=== PATIENT | female | born 1950 | race Caucasian/White ===

== ENCOUNTER 2016-08-08 00:08 | Observation (INO) | payer OTHER, MEDICAID ==
[2016-08-08] VITALS (12 sets, daily range): BP systolic 138–215; BP diastolic 71–97; PULSE 71–88; RESP 14–20; TEMP 97.6–98.3; O2SAT 92–99
[~2016-08-08] VITALS: Ht 157.5 cm; Wt 58.0 kg
[~2016-08-08 00:08] MED LIST: FURO1TAB62 PO; HUMALOG SQ; LACT10SO47 PO; LEVEMIR SQ; LEVO75TA3 PO; MECL-62 PO; MERC50TA PO; METO25TA3 PO; POTA-243 PO; VITA100018 PO; VITA500T PO; XIFA550T4 PO; ZETI10TA5 PO; ZOLO50TA PO
[2016-08-08] MEDS ORDERED: SODIUM CHLOR 0.9% 1000 ML INJ 1,000 ML IV ONE ×2 (00:34→01:45)
[2016-08-08] MEDS ORDERED: diphenhydrAMINE HCL 50 MG/ML VIAL IVP ONE (00:45)
[2016-08-08] MEDS ORDERED: PROCHLORPERAZINE INJ 10 MG/2 ML VIAL IVP ONE (00:45)
[2016-08-08] MEDS ORDERED: SODIUM CHLORIDE 0.9% FLUSH 5 ML FLUSH IVF PRN (00:45)
[2016-08-08 00:59] LABS: AUTOMATED NEUTROPHIL # 2.3 TH/MM3 (1.8-7.7); BASOPHIL % 1.1 % (0.0-2.0); EOSINOPHIL # 0.1 TH/MM3 (0-0.4); EOSINOPHIL % 1.6 % (0.0-4.0); HEMATOCRIT 29.9 % (35.0-46.0); LYMPH % 25.2 % (9.0-44.0); MEAN CELL VOLUME 97.5 FL (80.0-100.0); MEAN CORPUSCULAR HEMOGLOBIN 33.4 PG (27.0-34.0); MEAN CORPUSCULAR HGB CONC 34.2 % (32.0-36.0); MONO % 11.6 % (0.0-8.0); NEUT % 60.5 % (16.0-70.0); PLATELET COUNT 92 TH/MM3 (150-450); RED BLOOD COUNT 3.07 MIL/MM3 (4.00-5.30); RED CELL DISTRIBUTION WIDTH 14.9 % (11.6-17.2); WHITE BLOOD COUNT 3.8 TH/MM3 (4.0-11.0)
[2016-08-08 01:08] LABS: HEMO FLAGS AUTO DIFF
[2016-08-08 01:26] LABS: ANION GAP 9 MEQ/L (5-15); AST (GOT) 64 U/L (15-37); BICARBONATE 26.9 MEQ/L (21.0-32.0); BLOOD UREA NITROGEN 30 MG/DL (7-18); CHLORIDE 105 MEQ/L (98-107); GLOMERULAR FILTRATION RATE 70 ML/MIN (>89); POTASSIUM 4.2 MEQ/L (3.5-5.1); SODIUM (NA) 141 MEQ/L (136-145)
[2016-08-08 01:28] LABS: ALKALINE PHOSPHATASE 276 U/L (45-117); ALT (GPT) 57 U/L (10-53); TOTAL BILIRUBIN ADULT 0.7 MG/DL (0.2-1.0)
[2016-08-08] MEDS ORDERED: LORazepam 2 MG/ML VIAL IV PUSH ONE (01:45)
[2016-08-08 01:49] LABS: PLATELET ESTIMATE SMEAR LOW (NORMAL); PLATELET MORPHOLOGY NORMAL (NORMAL); SCAN/DIFF AUTO DIFF CONFIRMED
--- NOTE | 2016-08-08 02:06 | RADRPT ---
EXAM DATE/TIME: 08/08/2016 01:06 [place] COMPARISON: CT BRAIN W/O CONTRAST, December 12, 2014, 15:02. INDICATIONS : Right temporal cephalgia. RADIATION DOSE: 38.25 CTDIvol (mGy) MEDICAL HISTORY : Hypertension. Hepatitis. glaucoma. SURGICAL HISTORY : None. ENCOUNTER: Initial ACUITY: 1 day PAIN SCALE: 10/10 LOCATION: Right temporal TECHNIQUE: Multiple contiguous axial images were obtained of the head. Using automated exposure control and adj ustment of the mA and/or kV according to patient size, radiation dose was kept as low as reasonably a chievable to obtain optimal diagnostic quality images. FINDINGS: CEREBRUM: The ventricles are normal for age. No evidence of midline shift, mass lesion, hemorrhage or acute in farction. No extra-axial fluid collections are seen. POSTERIOR FOSSA: The cerebellum and brainstem are intact. The 4th ventricle is midline. The cerebellopontine angle i s unremarkable. EXTRACRANIAL: The visualized portion of the orbits is intact. Fluid in the right sphenoid sinus. SKULL: The calvaria is intact. No evidence of skull fracture. CONCLUSION: No acute intracranial abnormality. Sphenoid sinus disease. Dejan Trejo MD on August 08, 2016 at 2:04 Board Certified Radiologist. This report was verified electronically.
--- NOTE | 2016-08-08 02:26 | PD ---
HPI Chief Complaint: Headache Time Seen by Provider: 00:24 Travel History International Travel<30 days: No Contact w/Intl Traveler<30days: No Traveled to known affect area: No History of Present Illness HPI 66-year-old female arrives to the ER complaining of pain in the region of the right temporal scalp. It is been present for about 1-2 weeks. The onset was gradual. It is now becoming constant. She notes claudication in the right masseter distribution with chewing. She notes a rash about her right face and right neck. Patient suffers with autoimmune hepatitis and additional multiple other autoimmune disorders. The daughter notes the patient has been very fatigued and has spent most of the day for the past 2 days in bed. There is been no recent trauma or injury to the right temporal scalp. PFSH Past Medical History Hx Anticoagulant Therapy: Yes (ASPIRIN 81mg) Arthritis: Yes Asthma: No Autoimmune Disease: Yes (HEPATITIS) Blood Disorders: No Anxiety: Yes Depression: Yes Heart Rhythm Problems: Yes (RBBB) Cancer: No Cardiovascular Problems: Yes (HTN) High Cholesterol: No Chemotherapy: No Chest Pain: No Congestive Heart Failure: No Cirrhosis: Yes COPD: No Cerebrovascular Accident: No Diabetes: Yes Patient Takes Glucophage: No Diminished Hearing: No Endocrine: Yes GERD: No Genitourinary: No Headaches: Yes Hepatitis: Yes (AUTOIMMUNE) Hypertension: Yes Immune Disorder: Yes Implanted Vascular Access Dvce: No Musculoskeletal: No Neurologic: Yes Psychiatric: Yes Reproductive: No Respiratory: No Immunizations Current: Yes Radiation Therapy: No Seizures: No Sleep Apnea: No Thyroid Disease: No Ovarian Cysts: Yes (1985) Past Surgical History Abdominal Surgery: Yes (APPENDECTOMY) Appendectomy: Yes Gynecologic Surgery: Yes (HYSTERECTOMY ) Hysterectomy: Yes Pacemaker: No Other Surgery: Yes (LIVER/BREAST BIOPSY) Social History Alcohol Use: No (PT DENIES) Tobacco Use: No Substance Use: No (PT DENIES) Allergies-Medications (Allergen,Severity, Reaction): Coded Allergies: Morphine (Verified Allergy, Severe, Rash, 08/08/16) Penicillin (Verified Allergy, Severe, Rash, 08/08/16) Tetracycline (Verified Allergy, Severe, Rash, 08/08/16) Clindamycin (Verified Allergy, Unknown, Nausea/Vomiting, 08/08/16) Sulfa (Verified Allergy, Unknown, Rash, 08/08/16) Reported Meds & Prescriptions Reported Meds & Active Scripts Active Zoloft (Sertraline HCl) 50 Mg Tab 50 Mg PO DAILY Meclizine (Meclizine HCl) 25 Mg Tab 25 Mg PO TID PRN Metoprolol Tartrate 25 Mg Tab 12.5 Mg PO Q12HR Klor-Con 10 (Potassium Chloride) 10 Meq Tab 10 Meq PO DAILY Reported Zetia (Ezetimibe) 10 Mg Tab 10 Mg PO DAILY Vitamin D3 (Cholecalciferol) 1,000 Unit Tab 1,000 Units PO DAILY Vitamin C (Ascorbic Acid) 500 Mg Tab 500 Mg PO DAILY Levothyroxine (Levothyroxine Sodium) 75 Mcg Tab 75 Mcg PO DAILY Levemir Inj (Insulin Detemir) 1,000 unit/ 10 ML Vial 23 Units SQ BID Do not mix with any other Insulin. Lasix (Furosemide) 20 Mg Tab 20 Mg PO DAILY Humalog Inj (Insulin Human Lispro) 1,000 Unit/10 Ml Vial 6-16 Units SQ ACHS Xifaxan (Rifaximin) 550 Mg Tab 550 Mg PO Q12HR Mercaptopurine 50 Mg Tab 50 Mg PO DAILY Enulose Liq (Lactulose (Encephalopathy) Liq) 10 Gm/15 Ml Soln 20 Gm PO BID Review of Systems Except as stated in HPI: all other systems reviewed are Neg Physical Exam Narrative GENERAL: 66-year-old female pleasant well-nourished well-developed SKIN: Warm and dry. HEAD: Atraumatic. Normocephalic. Tenderness along the right temporal artery. EYES: Pupils equal and round. No scleral icterus. No injection or drainage. ENT: No nasal bleeding or discharge. Mucous membranes pink and moist. NECK: Trachea midline. No JVD. CARDIOVASCULAR: Regular rate and rhythm. No murmur appreciated. RESPIRATORY: No accessory muscle use. Clear to auscultation. Breath sounds equal bilaterally. GASTROINTESTINAL: Abdomen soft, non-tender, nondistended. Hepatic and splenic margins not palpable. MUSCULOSKELETAL: No obvious deformities. No clubbing. No cyanosis. No edema. NEUROLOGICAL: Awake and alert. No obvious cranial nerve deficits. Motor grossly within normal limits. Normal speech. PSYCHIATRIC: Appropriate mood and affect; insight and judgment normal. Data Data Last Documented VS Vital Signs Date Time Temp Pulse Resp B/P Pulse Ox O2 Delivery O2 Flow Rate FiO2 08/08/16 03:50 77 16 165/71 99 Room Air 08/08/16 00:11 98.1 Orders Complete Blood Count With Diff (08/08/16 00:34) Comprehensive Metabolic Panel (08/08/16 00:34) [place] Sedimentation Rate (08/08/16 00:34) C-Reactive Protein (Crp) (08/08/16 00:34) Ct Brain W/O Iv Contrast(Rout) (08/08/16 00:34) Ecg Monitoring (08/08/16 00:34) Iv Access Insert/Monitor (08/08/16 00:34) Oximetry (08/08/16 00:34) Sodium Chloride 0.9% Flush (Ns Flush) (08/08/16 00:45) Prochlorperazine Inj (Compazine Inj) (08/08/16 00:45) Diphenhydramine Inj (Benadryl Inj) (08/08/16 00:45) Sodium Chlor 0.9% 1000 Ml Inj (Ns 1000 M (08/08/16 00:34) Sodium Chlor 0.9% 1000 Ml Inj (Ns 1000 M (08/08/16 01:45) Lorazepam Inj (Ativan Inj) (08/08/16 01:45) Labetalol Inj (Trandate Inj) (08/08/16 03:30) Methylprednisolone So Succ Inj (Solumedr (08/08/16 03:30) Admit Order (Ed Use Only) (08/08/16 04:56) Place In Observation (08/08/16 ) Vital Signs (Adult) Q4H (08/08/16 04:58) Activity Oob With Assistance (08/08/16 04:58) ^ Pathology Collector / Telemetry .CONTINUOUS (08/08/16 04:58) Diet Heart Healthy (08/08/16 Breakfast) Sodium Chloride 0.9% Flush (Ns Flush) (08/08/16 05:00) Sodium Chloride 0.9% Flush (Ns Flush) (08/08/16 09:00) Basic Metabolic Panel (Bmp) (08/09/16 06:00) Complete Blood Count With Diff (08/09/16 06:00) Pt Request For Service (08/08/16 04:58) Case Management Consult (08/08/16 04:58) Scd Bilateral/Knee High DORIS.BID (08/08/16 04:58) Naloxone Inj (Narcan Inj) (08/08/16 05:00) Labs Laboratory Tests Test 08/08/16 00:40 White Blood Count 3.8 TH/MM3 Red Blood Count 3.07 MIL/MM3 Hemoglobin 10.3 GM/DL Hematocrit 29.9 % Mean Corpuscular Volume 97.5 FL Mean Corpuscular Hemoglobin 33.4 PG Mean Corpuscular Hemoglobin 34.2 % Concent Red Cell Distribution Width 14.9 % Platelet Count 92 TH/MM3 Mean Platelet Volume 9.7 FL Neutrophils (%) (Auto) 60.5 % Lymphocytes (%) (Auto) 25.2 % Monocytes (%) (Auto) 11.6 % Eosinophils (%) (Auto) 1.6 % Basophils (%) (Auto) 1.1 % Neutrophils # (Auto) 2.3 TH/MM3 Lymphocytes # (Auto) 1.0 TH/MM3 Monocytes # (Auto) 0.4 TH/MM3 Eosinophils # (Auto) 0.1 TH/MM3 Basophils # (Auto) 0.0 TH/MM3 CBC Comment AUTO DIFF Differential Comment AUTO DIFF CONFIRMED Platelet Estimate LOW Platelet Morphology Comment NORMAL Red Cell Morphology Comment NORMAL Erythrocyte Sedimentation Rate 78 mm/hr Sodium Level 141 MEQ/L Potassium Level 4.2 MEQ/L Chloride Level 105 MEQ/L Carbon Dioxide Level 26.9 MEQ/L Anion Gap 9 MEQ/L Blood Urea Nitrogen 30 MG/DL Creatinine 0.82 MG/DL Estimat Glomerular Filtration 70 ML/MIN Rate Random Glucose 158 MG/DL Calcium Level 9.0 MG/DL Total Bilirubin 0.7 MG/DL Aspartate Amino Transf 64 U/L (AST/SGOT) Alanine Aminotransferase 57 U/L (ALT/SGPT) Alkaline Phosphatase 276 U/L C-Reactive Protein 0.70 MG/DL Total Protein 8.2 GM/DL Albumin 2.9 GM/DL [facility] Medical Decision Making Medical Screen Exam Complete: Yes Emergency Medical Condition: Yes Medical Record Reviewed: Yes Differential Diagnosis Temporal arteritis, tension headache, migraine, autoimmune disorder Narrative Course CBC & BMP Diagram 08/08/16 00:40 AST is 64 ALT is 57 Alkaline phosphatase is 276 C-reactive protein is 0.7 Albumin 2.9. Last [address] 08/08/16 0034 Signed Impressions: Service Date/Time: Monday, August 08, 2016 01:06 - CONCLUSION: No acute intracranial abnormality. Sphenoid sinus disease. Dejan Trejo MD The case was discussed with Dr. Steinberg of neurology who confirmed that neurology services here can be consulted in the case of possible giant cell arteritis. Case was discussed with Dr. Spears of general surgery who is amenable with performing a temporal artery biopsy. Given multiple medical problems patient will be admitted to the hospitalist service. d/w Dr Berrios. Diagnosis Primary Impression: Temporal headache Admitting Information Admitting Physician Requests: Observation Will Doe MD Aug 08, 2016 02:26
[2016-08-08] MEDS ORDERED: methylPREDNISolone SOD SUCC 125 MG/2 ML VIAL IV PUSH ONE (03:30)
[2016-08-08] MEDS ORDERED: LABETALOL HCL 100 MG/20 ML VIAL IV PUSH PRN (03:30)
[2016-08-08] MEDS ORDERED: SODIUM CHLORIDE 0.9% FLUSH 5 ML FLUSH FLUSH PRN (05:00)
[2016-08-08] MEDS ORDERED: NALOXONE HCL 0.4 MG/ML AMP IV PRN (05:00)
--- NOTE | 2016-08-08 06:03 | HHI.HP ---
[facility] Service [place] [facility] Primary Care Physician Luis Clark DO Admission Diagnosis R Temporal Cephalgia Diagnoses: (1) Temporal headache (2) Temporal arteritis (3) Hypertension (4) Type 2 diabetes mellitus (5) Hypothyroidism Chief Complaint: Pain in the right christian with nausea and vomiting for 2 weeks Travel History International Travel<30 Days: No Contact w/Intl Traveler <30 Da: No Traveled to Known Affected Are: No History of Present Illness Ms. Mooney is a 66 year old female with a history of diabetes mellitus, depression, hypertension, autoimmune hepatitis, cirrhosis of liver with ascites , hypocalcemia, upper GI bleed, hypo-albuminuria, and hypothyroidism who presented to the emergency room complaining of right temporal scalp pain for 2 weeks. At the time of our visit, she had been medicated with Ativan IV if you are's prior along with Compazine and IV Benadryl. She is very lethargic but will awaken long enough to answer a few questions but drifts back to sleep. She reports that she's been having severe right christian head pain for the past 2 weeks and cannot hear out of her left ear. She states that yesterday she experienced severe nausea and vomiting. She also reports photosensitivity. She denies localized weakness or paresthesias. She denies dysuria, hematuria, shortness of breath, chest pain. She reports neck pain but states that this is chronic in nature and unchanged. The patient sees Dr. Serrano for GI, Dr. Ray for endocrine, Dr. Quinonez for dermatology, Dr. Giron for cardiology, Dr. Schaeffer for ophthalmology, and Dr. Walker for podiatry. . Review of Systems ROS Limitations: Clinical Condition Constitutional: DENIES: Fever, Chills Eyes: COMPLAINS OF: Photosensitivity Respiratory: DENIES: Shortness of breath Gastrointestinal: COMPLAINS OF: Nausea, Vomiting, DENIES: Abdominal pain, Black stools, Bloody stools Genitourinary: DENIES: Hematuria, Dysuria Neurologic: DENIES: Localized weakness, Paresthesias Other Patient is sleepy from medications during the time of our visit; thus ability to obtain reliable review of systems is limited. Past Family Social History Past Medical History Due to patient's drowsiness, medical history is obtained from chart Cataracts Peripheral neuropathy Headache Hypertension Right bundle branch block Hypertension Gastroesophageal reflux disease Colitis Inflammatory bowel disease Osteoarthritis Diabetes mellitus, type II which was diagnosed in the year 1999 Liver disease; autoimmune hepatitis Cirrhosis . Past Surgical History Hysterectomy Left shoulder surgery Breast biopsy Liver biopsy . Reported Medications Reported Meds & Active Scripts Active Zoloft (Sertraline HCl) 50 Mg Tab 50 Mg PO DAILY Meclizine (Meclizine HCl) 25 Mg Tab 25 Mg PO TID PRN Metoprolol Tartrate 25 Mg Tab 12.5 Mg PO Q12HR Klor-Con 10 (Potassium Chloride) 10 Meq Tab 10 Meq PO DAILY Reported Zetia (Ezetimibe) 10 Mg Tab 10 Mg PO DAILY Vitamin D3 (Cholecalciferol) 1,000 Unit Tab 1,000 Units PO DAILY Vitamin C (Ascorbic Acid) 500 Mg Tab 500 Mg PO DAILY Levothyroxine (Levothyroxine Sodium) 75 Mcg Tab 75 Mcg PO DAILY Levemir Inj (Insulin Detemir) 1,000 unit/ 10 ML Vial 23 Units SQ BID Do not mix with any other Insulin. Lasix (Furosemide) 20 Mg Tab 20 Mg PO DAILY Humalog Inj (Insulin Human Lispro) 1,000 Unit/10 Ml Vial 6-16 Units SQ ACHS Xifaxan (Rifaximin) 550 Mg Tab 550 Mg PO Q12HR Mercaptopurine 50 Mg Tab 50 Mg PO DAILY Enulose Liq (Lactulose (Encephalopathy) Liq) 10 Gm/15 Ml Soln 20 Gm PO BID Allergies: Coded Allergies: Morphine (Verified Allergy, Severe, Rash, 08/08/16) Penicillin (Verified Allergy, Severe, Rash, 08/08/16) Tetracycline (Verified Allergy, Severe, Rash, 08/08/16) Clindamycin (Verified Allergy, Unknown, Nausea/Vomiting, 08/08/16) Sulfa (Verified Allergy, Unknown, Rash, 08/08/16) Active Ordered Medications Current Medications IV Flush (NS Flush) 2 ml UNSCH PRN IVF FLUSH AFTER USING IV ACCESS; Start at 00:45; Stop 08/08/16 at 05:13; Status DC Prochlorperazine Edisylate (Compazine Inj) 10 mg ONCE ONCE IVP Last administered on 08/08/16at 00:51; Start 08/08/16 at 00:45; Stop 08/08/16 at 00 :46; Status DC Diphenhydramine HCl 50 mg 50 mg ONCE ONCE IVP Last administered on 08/08/16at 00:50; Start 08/08/16 at 00:45; Stop 08/08/16 at 00:46; Status DC Sodium Chloride 1,000 ml @ 1,000 mls/hr Q1H ONCE IV Last administered on 08/08at 00:50; Start 08/08/16 at 00:34; Stop 08/08/16 at 01:33; Status DC Sodium Chloride (NS 1000 ml Inj) 1,000 ml @ 999 mls/hr BOLUS ONCE IV Last administered on 08/08/16at 01:41; Start 08/08/16 at 01:45; Stop 08/08/16 at 02 :45; Status DC Lorazepam (Ativan Inj) 0.5 mg ONCE ONCE IV PUSH Last administered on at 01:41; Start 08/08/16 at 01:45; Stop 08/08/16 at 01:46; Status DC Labetalol HCl (Trandate Inj) 10 mg Q20M PRN IV PUSH SBP>200, DBP>100 Last administered on 08/08/16at 03:34; Start 08/08/16 at 03:30 Methylprednisolone Sodium Succinate (SoluMEDROL INJ) 125 mg ONCE ONCE IV PUSH Last administered on 08/08/16at 03:34; Start 08/08/16 at 03:30; Stop 08/08/16 at 03:31; Status DC IV Flush (NS Flush) 2 ml UNSCH PRN FLUSH FLUSH AFTER USING IV ACCESS; Start at 05:00 IV Flush (NS Flush) 2 ml BID FLUSH ; Start 08/08/16 at 09:00 Naloxone HCl (Narcan Inj) 0.4 mg UNSCH PRN IV SEE LABEL COMMENTS; Start at 05:00 Prednisone (Deltasone) 60 mg DAILY PO ; Start 08/08/16 at 09:00 Pantoprazole Sodium (Protonix) 40 mg DAILY PO ; Start 08/08/16 at 09:00 Furosemide (Lasix) 20 mg DAILY PO ; Start 08/08/16 at 09:00 Levothyroxine Sodium (Synthroid) 75 mcg DAILY@06 PO ; Start 08/08/16 at 06:45 Meclizine HCl (Antivert) 25 mg TID PRN PO VERTIGO; Start 08/08/16 at 06:15 Mercaptopurine (Purinethol) 50 mg DAILY PO ; Start 08/08/16 at 09:00 Metoprolol Tartrate (Lopressor) 12.5 mg Q12HR PO ; Start 08/08/16 at 09:00 Potassium Chloride (KCl) 10 meq DAILY PO ; Start 08/08/16 at 09:00 Rifaximin (Xifaxan) 550 mg Q12HR PO ; Start 08/08/16 at 09:00 Sertraline HCl (Zoloft) 50 mg DAILY PO ; Start 08/08/16 at 09:00 Lactulose (Lactulose Liq) 30 ml BID PO ; Start 08/08/16 at 09:00 Dextrose (D50w (Vial) Inj) 25 ml UNSCH PRN IV PUSH HYPOGLYCEMIA-SEE COMMENTS; Start 08/08/16 at 06:15 Glucagon (Glucagon Inj) 1 mg UNSCH PRN OTHER HYPOGLYCEMIA-SEE COMMENTS; Start 08/08/16 at 06:15 Insulin Aspart 1 1 ACHS SLIDING SCALE SQ ; Start 08/08/16 at 07:00 Dextrose/Sodium Chloride (D5W-1/2 NS 1000 ml Inj) 1,000 ml @ 84 mls/hr [id number] IV ; Start 08/08/16 at 06:15 Family History Father with melanoma and lung cancer Mother with Parkinson's . Social History Tobacco: Never Alcohol: None . Physical Exam Vital Signs Vital Signs Date Time Temp Pulse Resp B/P Pulse Ox O2 Delivery O2 Flow Rate FiO2 08/08/16 05:52 86 16 169/82 95 08/08/16 05:05 84 16 172/85 97 Room Air 08/08/16 03:50 77 16 165/71 99 Room Air 08/08/16 02:53 83 16 214/97 92 Room Air 08/08/16 00:41 79 20 215/97 93 Room Air 08/08/16 00:11 98.1 71 15 192/88 95 Room Air Physical Exam GENERAL: This is a well-nourished, well-developed patient, in no apparent distress but very drowsy. SKIN: No rashes, ecchymoses or lesions. Cool and dry. Skin is pale in appearance. HEAD: Atraumatic. Normocephalic. EYES: No scleral icterus. No injection or drainage. ENT: Nose without bleeding, purulent drainage. NECK: Trachea midline. No JVD or lymphadenopathy. CARDIOVASCULAR: Regular rate and rhythm without murmurs, gallops, or rubs. RESPIRATORY: Clear to auscultation. Breath sounds equal bilaterally. No wheezes , rales, or rhonchi. GASTROINTESTINAL: Abdomen soft, non-tender, nondistended. No guarding. MUSCULOSKELETAL: Extremities without clubbing, cyanosis, or edema. No calf tenderness. NEUROLOGICAL: Very drowsy but will arouse and answer questions before falling back to sleep. Motor and sensory grossly within normal limits. Normal speech. . . Laboratory Laboratory Tests Test 08/08/16 00:40 White Blood Count 3.8 Red Blood Count 3.07 Hemoglobin 10.3 Hematocrit 29.9 Mean Corpuscular Volume 97.5 Mean Corpuscular Hemoglobin 33.4 Mean Corpuscular Hemoglobin 34.2 Concent Red Cell Distribution Width 14.9 Platelet Count 92 Mean Platelet Volume 9.7 Neutrophils (%) (Auto) 60.5 Lymphocytes (%) (Auto) 25.2 Monocytes (%) (Auto) 11.6 Eosinophils (%) (Auto) 1.6 Basophils (%) (Auto) 1.1 Neutrophils # (Auto) 2.3 Lymphocytes # (Auto) 1.0 Monocytes # (Auto) 0.4 Eosinophils # (Auto) 0.1 Basophils # (Auto) 0.0 CBC Comment AUTO DIFF Differential Comment AUTO DIFF CONFIRMED Platelet Estimate LOW Platelet Morphology Comment NORMAL Red Cell Morphology Comment NORMAL Erythrocyte Sedimentation Rate 78 Sodium Level 141 Potassium Level 4.2 Chloride Level 105 Carbon Dioxide Level 26.9 Anion Gap 9 Blood Urea Nitrogen 30 Creatinine 0.82 Estimat Glomerular Filtration 70 Rate Random Glucose 158 Calcium Level 9.0 Total Bilirubin 0.7 Aspartate Amino Transf 64 (AST/SGOT) Alanine Aminotransferase 57 (ALT/SGPT) Alkaline Phosphatase 276 C-Reactive Protein 0.70 Total Protein 8.2 Albumin 2.9 Result Diagram: 08/08/16 0040 08/08/1639 Imaging Last Impressions Head CT 08/08/1633 Signed Impressions: Service Date/Time: Monday, August 08, 2016 01:06 - CONCLUSION: No acute intracranial abnormality. Sphenoid sinus disease. Dejan Trejo MD . Assessment and Plan Problem List: (1) Temporal headache ICD Code: R51 Status: Acute (2) Temporal arteritis ICD Code: M31.6 Status: Acute (3) Type 2 diabetes mellitus ICD Code: E11.9 Status: Chronic (4) Hypertension ICD Code: I10 Status: Chronic (5) Hypothyroidism ICD Code: E03.9 Status: Chronic Assessment and Plan aaaaaaaaTemporal headache - suspect temporal arteritis - Head CT with no acute intracranial abnormality noted. - Solu-Medrol IV was given in the ER - restarted on prednisone 60 mg per day - Consult general surgery - for diagnostic biopsy - Consult neurology Type 2 diabetes mellitus - Accu-Chek before meals and at bedtime with low-dose NovoLog sliding scale coverage - Monitor blood glucose results and adjust medications according to trend if needed - Hypoglycemia protocol - D5 half-normal saline at 84 cc per hour Hypertension - Labetalol 10 mg IV every 20 minutes systolic blood pressure greater than 200 and diastolic blood pressure greater than 100 - Home metoprolol restarted Hypothyroidism - Restart home Synthroid DVT prophylaxis - SCDs Written by Ana Mars, acting as scribe for Dr. Berrios on 08/08/16 at 06:03. The documentation accurately reflects the work performed [id number] by me on 08/08/16 at 0603 Discussed Condition With ER physician and patient Problem Qualifiers (1) Hypertension: Qualified Code: I10 - Essential hypertension Ana Mars Aug 08, 2016 06:03 Angelika Berrios MD Aug 21, 2016 07:53
[2016-08-08] MEDS ORDERED: MECLIZINE HCL 25 MG TAB PO PRN (06:15)
[2016-08-08] MEDS ORDERED: DEXTROSE 50% IN WATER 50 ML VIAL(D50) IV PUSH PRN (06:15)
[2016-08-08] MEDS ORDERED: DEXT 5%-NACL 0.45% 1000 ML INJ 1,000 ML IV SCH (06:15)
[2016-08-08] MEDS ORDERED: GLUCAGON 1 MG/ML VIAL OTHER PRN (06:15)
[2016-08-08] MEDS: LEVOTHYROXINE SODIUM 75 MCG TAB PO SCH (06:56)
[2016-08-08] MEDS: INSULIN ASPART SUPPLEMENTAL SCALE SQ SCH ×4 (07:07→20:59)
[2016-08-08] MEDS: predniSONE 20 MG TAB PO SCH (08:38)
[2016-08-08] MEDS: RIFAXIMIN 550 MG TAB PO SCH ×2 (08:38→20:44)
[2016-08-08] MEDS: FUROSEMIDE 20 MG TAB PO SCH (08:38)
[2016-08-08] MEDS: LACTULOSE SYRUP 20 GM/30 ML CUP PO SCH ×2 (08:39→20:44)
[2016-08-08] MEDS: POTASSIUM CHLORIDE 10 MEQ CONTROLLED RELEASE TAB PO SCH (08:39)
[2016-08-08] MEDS: PANTOPRAZOLE SOD 40 MG DELAYED RELEASE TAB PO SCH (08:39)
[2016-08-08] MEDS: SODIUM CHLORIDE 0.9% FLUSH 5 ML FLUSH FLUSH SCH ×2 (08:39→20:46)
[2016-08-08] MEDS: MERCAPTOPURINE 50 MG TAB PO SCH (08:42)
[2016-08-08] MEDS ORDERED: METOPROLOL TARTRATE 25 MG TAB PO SCH (09:00)
[2016-08-08] MEDS: SERTRALINE HCL 50 MG TAB PO SCH (09:01)
--- NOTE | 2016-08-08 09:32 | MB ---
cc: NAOMY ROSSI MD DATE OF CONSULTATION: 08/08/2016 REASON FOR CONSULTATION Temporal artery biopsy. HISTORY OF PRESENT ILLNESS The patient is a 66-year-old female with several medical issues including autoimmune hepatitis, who presents with a right-sided headache for approximately 2 weeks. The patient states the pain has been progressively getting worse. It is dull and radiates on the right side of her head and was a 10/10 yesterday and is currently a 4/10. The patient has associated nausea and vomiting but denies any fevers or chills. She does complain of some change in right eye vision and complains of some chronic neck pain. The patient denies dysuria, hematuria or chest pain. PAST MEDICAL HISTORY 1. Cataracts. 2. Peripheral neuropathy. 3. Headaches. 4. Hypertension. 5. Reflux. 6. Colitis. 7. Inflammatory bowel disease. 8. Osteoarthritis. 9. Diabetes type 2. 10. Autoimmune hepatitis. 11. Cirrhosis. PAST SURGICAL HISTORY 1. Hysterectomy. 2. Left shoulder surgery. 3. Breast biopsy. 4. Liver biopsy. MEDICATIONS Please see EMR. ALLERGIES 1. MORPHINE. 2. PENICILLIN. 3. TETRACYCLINE. 4. CLINDAMYCIN. 5. SULFA. SOCIAL HISTORY Denies smoking, ETOH or IVDA. FAMILY HISTORY Father with melanoma and lung cancer. Mother with Parkinson's. REVIEW OF SYSTEMS GENERAL: Complains of headaches. HEENT: Complains of decreased hearing, decreased visual acuity right eye. NECK: Denies lymphadenopathy. CARDIOVASCULAR: Denies chest pain or palpitations. RESPIRATORY: Denies cough or wheeze. GASTROINTESTINAL: Denies abdominal pain. Complains of nausea and vomiting. MUSCULOSKELETAL: Complains of arthritis. Denies edema. NEUROLOGIC: Denies focal numbness. Complains of headache. GENITOURINARY: Denies dysuria or hematuria. PHYSICAL EXAMINATION GENERAL: No acute distress. VITAL SIGNS: Temperature 97.6, pulse 88, respirations 14, blood pressure 187/84. 95% saturations on room air. HEENT: PERRLA. Extraocular movements intact. No icterus. NECK: Trachea midline. No JVD. HEART: S1, S2, regular rate and rhythm. LUNGS: Bilateral expansion and clear. ABDOMEN: Soft, nontender, nondistended. Healed scars. EXTREMITIES: Moving all extremities. Warm and well-perfused. NEUROLOGIC: Relatively drowsy. Motor grossly intact. SKIN: No obvious lesions. LABORATORY WBC 3.8, hemoglobin 10.3, hematocrit 29.9, platelets 92. Sodium 141, potassium 4.2, chloride 105, BUN 30, creatinine 0.82, calcium 9, total bilirubin 0.7, AST 64, ALT 57, alkaline phosphatase 276. CRP 0.7. ESR 78. INR 1.1, PTT 23.8. IMAGING Reviewed by myself. CT without evidence of abnormality. ASSESSMENT The patient is a 66-year-old female with concern for temporal arteritis. PLAN After full radiologic, clinical and laboratory work-up, patient with above-named presumptive diagnosis including right temporal arteritis. The primary team currently requesting surgical biopsy for this. We will plan to take the patient to the OR to undergo a right temporal artery biopsy. This was explained to the patient and daughter who state agreement and would like to proceed. Discussed with the patient the fact that she does need high-dose steroids which have already been started. Further discussed that the biopsy could confirm the diagnosis of temporal arteritis but occasionally biopsies are negative and the patient may still have the disease and still want treatment. Again, the patient states understanding of this. MD MARIE Posadas/JULIET /8:55 AM /9:19 AM
--- NOTE | 2016-08-08 09:54 | HHI.PR ---
Subjective Remarks Follow-up for headache. The patient is complaining of right-sided headache. She has some right-sided visual blurriness. She denies any chest pain and denies any past history of heart disease. Has been able to eat and ambulate without difficulties. Objective Vitals Vital Signs Date Time Temp Pulse Resp B/P Pulse Ox O2 Delivery O2 Flow Rate FiO2 08/08/16 08:28 98.2 88 17 195/93 94 08/08/16 06:25 97.6 88 14 187/84 95 08/08/16 05:52 86 16 169/82 95 08/08/16 05:05 84 16 172/85 97 Room Air 08/08/16 03:50 77 16 165/71 99 Room Air 08/08/16 02:53 83 16 214/97 92 Room Air 08/08/16 00:41 79 20 215/97 93 Room Air 08/08/16 00:11 98.1 71 15 192/88 95 Room Air Result Diagram: 08/08/16 0040 08/08/16 0040 Imaging Last Impressions Head CT 08/08/16 0034 Signed Impressions: Service Date/Time: Monday, August 08, 2016 01:06 - CONCLUSION: No acute intracranial abnormality. Sphenoid sinus disease. Dejan Trejo MD Objective Remarks GENERAL: Well-developed well-nourished. In no acute distress. SKIN: Warm and dry. No lesions noted. HEENT: Normocephalic. Pupils equal and round. Mucous membranes pink and moist. CARDIOVASCULAR: Regular rate and rhythm. No murmur appreciated. RESPIRATORY: No accessory muscle use. Clear to auscultation. Breath sounds equal bilaterally. GASTROINTESTINAL: Abdomen soft, non-tender, nondistended. Bowel sounds x4. MUSCULOSKELETAL: No obvious deformities. No clubbing or cyanosis. No edema. NEUROLOGICAL: Sleepy but awakens easily. Moves upper and lower extremities spontaneously. Normal speech. PSYCHIATRIC: Appropriate mood and affect; insight and judgment normal. A/P Problem List: (1) Temporal headache ICD Code: R51 Status: Acute (2) Temporal arteritis ICD Code: M31.6 Status: Acute (3) Type 2 diabetes mellitus ICD Code: E11.9 Status: Chronic (4) Hypertension ICD Code: I10 Status: Chronic (5) Hypothyroidism ICD Code: E03.9 Status: Chronic Assessment and Plan Temporal headache - suspicion of temporal arteritis Head CT with no acute intracranial abnormality noted. - Solu-Medrol IV was given in the ER -continue on prednisone 60 mg per day - Consulted general surgery for diagnostic biopsy, D/W Dr. Spears, low risk patient for low risk procedure - Consulted neurology, appreciate specialist input Type 2 diabetes mellitus - Accu-Chek before meals and at bedtime with low-dose NovoLog sliding scale coverage - Monitor blood glucose results and adjust medications according to trend if needed - Hypoglycemia protocol Hypertension Currently accelerated. Received IV labetalol in the ED. Could contribute to headache as above. -Give IV Vasotec 1 now and continue as needed -Increase home metoprolol dose Hypothyroidism -Continue home Synthroid DVT prophylaxis - SCDs Discharge Planning Disposition pending clinical course. Problem Qualifiers (1) Hypertension: Qualified Code: I10 - Essential hypertension Pineda Quinonez Aug 08, 2016 09:54
[2016-08-08] MEDS ORDERED: PROPOFOL 200 MG/20 ML AMP IV ONE (09:55)
[2016-08-08] MEDS ORDERED: ENALAPRILAT 1.25 MG/ML VIAL IV PUSH ONE (10:15)
[2016-08-08] MEDS ORDERED: fentaNYL CITRATE 250 MCG/5 ML AMP ONE (12:37)
[2016-08-08] MEDS ORDERED: MIDAZOLAM HCL 2 MG/2 ML VIAL ONE ×2 (12:37→12:53)
[2016-08-08] MEDS ORDERED: LIDOCAINE 1%/EPINEPHrine 1:100,000 SOLN 20 ML VIAL ONE (12:39)
[2016-08-08] MEDS ORDERED: LACTATED RINGER'S 1,000 ML BAG XX ONE (12:43)
[2016-08-08] MEDS ORDERED: FAMOTIDINE 20 MG/2 ML VIAL ONE (12:53)
--- NOTE | 2016-08-08 14:00 | HHI.PR ---
Immediate Post Op Note Procedure Date: Aug 08, 2016 Pre Op Diagnosis: right temporal arteritis Post Op Diagnosis: same Surgeon: Donte Spears MD Hr Representative(s): see or sheet Procedure: right temporal artery biopsy Findings: good hemostasis Complications: none Specimen(s) removed: temporal artery Estimated blood loss: 2cc Anesthesia: MAC Drains: None IVF (400) Patient to: PACU Patient Condition: Good Donte Spears MD Aug 08, 2016 13:59
[2016-08-08] MEDS ORDERED: DO NOT ADM ANY ANTICOAGULANT DRUGS XX PRN (14:30)
[2016-08-08] MEDS ORDERED: INSULIN HUMAN REGULAR 1,000 UNITS/10 ML VIAL ONE (14:30)
[2016-08-08] MEDS ORDERED: INSULIN HUMAN REGULAR 1,000 UNITS/10 ML VIAL IV PUSH ONE (14:45)
[2016-08-08] MEDS: ENALAPRILAT 1.25 MG/ML VIAL IV PUSH PRN (15:10)
--- NOTE | 2016-08-08 17:40 | MP ---
cc: NAOMY SPEARS MD DATE OF SURGERY 08/08/16 PREOPERATIVE DIAGNOSIS Right temporal artery arteritis POSTOPERATIVE DIAGNOSIS Right temporal artery arteritis PROCEDURE PERFORMED Right superficial temporal artery biopsy. SURGEON Dr. Sandy Spears ANESTHESIA MAC SQL DATABASE ADMINISTRATOR See OR sheet. DRAINS None COMPLICATIONS None IV FLUIDS 450 mL. ESTIMATED BLOOD LOSS 2 mL FINDINGS Good hemostasis. SPECIMEN Temporal artery sent for pathology. INDICATION The patient is a 66 year old female who presented with multiple medical issues and complaints of two weeks of right-sided headache. She states this had been progressively worse and had noted some change in visual acuity in her right eye. She is seen in the emergency department for further workup including a CT scan that showed no evidence of stroke. She had an elevated ESR and concerns for temporal arteritis. She was placed on steroids and pain control and surgery was consulted for surgical biopsy of temporal artery. This was discussed with the patient and daughter in detail. They stated understanding, agreed and would like to proceed. PROCEDURE IN DETAIL The patient was taken to the operating suite, placed in the supine position. She was prepped and draped in usual sterile fashion after induction of MAC anesthesia. Brief time-out done stating correct patient, procedure and surgical site, all were in agreement with this. Attention directed to the pretragal area. A Doppler ultrasound was used to identify the superficial temporal artery and its course. This was marked with a marking pen. A vertical incision was made 2 cm. This was done with a 15 blade scalpel. Further dissection done with electro Bovie cautery and a hemostat. Dissection down to identify the temporal artery. This was immobilized. Suture ligature placed both proximal and distal and a piece of biopsy specimen was sent to pathology. A second small sample branch was taken and suture ligated with 2-0 silk ties and sent for biopsy sample specimen. Next, hemostasis was obtained. The wound was irrigated. The wound was closed in two three layers with a 3-0 Vicryl followed by a 4-0 Monocryl. Sterile dressings placed including Mastisol and Steri-Strips. The patient tolerated procedure. No intraoperative complications. All lap and instrument counts were correct. The patient was taken to post anesthesia care unit. MD MARIE Posadas/ /5:02 PM /5:30 PM
[2016-08-08] MEDS: METOPROLOL TARTRATE 25 MG TAB PO SCH (20:44)
[2016-08-09] VITALS: BP 146/65; PULSE 84; RESP 18; TEMP 97.6; O2SAT 96
[2016-08-09 04:00] VITALS: BP 158/76; PULSE 81; RESP 18; TEMP 97.6; O2SAT 95
[2016-08-09 05:11] LABS: AUTOMATED NEUTROPHIL # 3.5 TH/MM3 (1.8-7.7); BASOPHIL % 0.2 % (0.0-2.0); EOSINOPHIL % 0.1 % (0.0-4.0); HEMATOCRIT 28.4 % (35.0-46.0); LYMPH % 15.9 % (9.0-44.0); LYMPHOCYTE # 0.8 TH/MM3 (1.0-4.8); MEAN CELL VOLUME 99.7 FL (80.0-100.0); MEAN CORPUSCULAR HEMOGLOBIN 33.7 PG (27.0-34.0); MEAN CORPUSCULAR HGB CONC 33.8 % (32.0-36.0); MONO % 10.5 % (0.0-8.0); NEUT % 73.3 % (16.0-70.0); PLATELET COUNT 86 TH/MM3 (150-450); RED BLOOD COUNT 2.85 MIL/MM3 (4.00-5.30); RED CELL DISTRIBUTION WIDTH 15.1 % (11.6-17.2); WHITE BLOOD COUNT 4.7 TH/MM3 (4.0-11.0)
[2016-08-09 05:20] LABS: HEMO FLAGS AUTO DIFF
[2016-08-09 05:39] LABS: BICARBONATE 19.9 MEQ/L (21.0-32.0); POTASSIUM 4.7 MEQ/L (3.5-5.1)
[2016-08-09] MEDS: LEVOTHYROXINE SODIUM 75 MCG TAB PO SCH (06:00)
[2016-08-09] MEDS ORDERED: INSULIN HUMAN REGULAR 1,000 UNITS/10 ML VIAL IVP ONE (06:15)
[2016-08-09 06:25] LABS: KERATOCYTES OCC (NORMAL); PLATELET ESTIMATE SMEAR LOW (NORMAL); PLATELET MORPHOLOGY NORMAL (NORMAL); SCAN/DIFF AUTO DIFF CONFIRMED
[2016-08-09] MEDS: INSULIN ASPART SUPPLEMENTAL SCALE SQ SCH ×4 (06:26→21:13)
[2016-08-09] MEDS: PANTOPRAZOLE SOD 40 MG DELAYED RELEASE TAB PO SCH (07:49)
[2016-08-09] MEDS: POTASSIUM CHLORIDE 10 MEQ CONTROLLED RELEASE TAB PO SCH (07:49)
[2016-08-09] MEDS: LACTULOSE SYRUP 20 GM/30 ML CUP PO SCH ×2 (07:49→21:02)
[2016-08-09] MEDS: RIFAXIMIN 550 MG TAB PO SCH ×2 (07:49→21:01)
[2016-08-09] MEDS: FUROSEMIDE 20 MG TAB PO SCH (07:49)
[2016-08-09] MEDS: SERTRALINE HCL 50 MG TAB PO SCH (07:50)
[2016-08-09] MEDS: METOPROLOL TARTRATE 25 MG TAB PO SCH ×2 (07:51→21:01)
[2016-08-09] MEDS: predniSONE 20 MG TAB PO SCH (07:52)
[2016-08-09] MEDS: MERCAPTOPURINE 50 MG TAB PO SCH (07:54)
[2016-08-09] MEDS: SODIUM CHLORIDE 0.9% FLUSH 5 ML FLUSH FLUSH SCH ×2 (07:55→21:00)
[2016-08-09 08:00] VITALS: BP 171/78; PULSE 82; RESP 16; TEMP 96.6; O2SAT 96
[2016-08-09] MEDS ORDERED: INSULIN ASPART 1,000 UNITS/10 ML VIAL SQ ONE (08:45)
[2016-08-09] MEDS ORDERED: INSULIN DETEMIR 100 UNITS/ML VIAL SQ SCH (09:00)
--- NOTE | 2016-08-09 11:48 | MB ---
cc: NAHUM BUTLER MD DATE OF CONSULTATION: 08/09/2016 REASON FOR CONSULTATION Right temporal cephalgia, possible temporal arteritis. HISTORY OF PRESENT ILLNESS A 66-year-old female with a past medical history of diabetes mellitus, hypertension, depression, autoimmune hepatitis, cirrhosis of the liver with ascites, hypocalcemia, upper GI bleeding, hypoalbuminemia, and hypothyroidism who presented to the emergency room complaining of two weeks' duration of right temporal skull pain. The patient states that she has had episodes of dull ache on the right temporal region sometimes associated with right eye pain. Denies any double vision or blurred vision but she states that she is photosensitive during the episode. Denies feeling sick, nauseated or throwing up during the episodes. She also states that she has pain in her muscles and in the shoulder and pelvic girdle. Denies fevers or night sweats, stiffness of the muscles or joints. She cannot recall any triggering factors for her pain. REVIEW OF SYSTEMS A 12-point review of systems is negative except for what is stated in the HPI. PAST MEDICAL HISTORY 1. Hypertension. 2. Headache. 3. Peripheral neuropathy. 4. Cataract. 5. Right bundle branch block. 6. Hypertension. 7. GERD. 8. Colitis. 9. Inflammatory bowel disease. 10. Osteoarthritis. 11. Diabetes mellitus. 12. Liver disease. 13. Autoimmune hepatitis. 14. Cirrhosis. PAST SURGICAL HISTORY 1. Hysterectomy. 2. Left shoulder surgery. 3. Breast biopsy. 4. Liver biopsy. MEDICATIONS 1. Zoloft. 2. Meclizine. 3. Metoprolol. 4. Klor-Con. 5. Zetia. 6. Vitamin D3. 7. Vitamin C. 8. Levothyroxine. 9. Insulin. 10. Lasix. 11. Humalog insulin. 12. Enulose. ALLERGIES MORPHINE, PENICILLIN, TETRACYCLINE, CLINDAMYCIN, AND SULFA. FAMILY HISTORY Father with melanoma and lung cancer, mother with Parkinson's disease. SOCIAL HISTORY Never smoked tobacco. No alcohol and no recreational drugs. PHYSICAL EXAMINATION GENERAL: Well-nourished, well-developed, good historian and not in acute distress. HEENT: Atraumatic, normocephalic. Intact vision. Intact hearing. NECK: Trachea in the midline. No carotid bruits. Supple neck. No signs of meningeal irritation. CARDIOVASCULAR: Regular rate and rhythm without murmurs. RESPIRATORY: Clear to auscultation. Breath sounds are equal and without wheezes. MUSCULOSKELETAL: Extremities without clubbing, cyanosis or edema. Moves all extremities equally. NEUROLOGICAL: Awake, alert, oriented to time, person and place. Intact speech. Intact memory. Intact speech content. There is mild tenderness on the temporal region with the temporal artery less pulsatile on the right than on the left, very feeble pulse can be felt. Cranial nerves II through XII are grossly intact. Motor system 5/5 bilateral, symmetrical throughout. Sensation is bilateral and symmetrical throughout to pain and temperature. Reflexes are 2+ bilateral and symmetrical. Plantars are bilaterally downgoing. No Espinoza signs. No crossed abductor reflexes were appreciated. Cerebellar signs are intact, bilateral and symmetrical [id number] and heel-to quinonez PSYCHOLOGICAL: Intact mood and behavior. No suicidal ideation. Normal judgment. LABORATORY TESTS White blood cells 3.8, hemoglobin 10.3, MCV 97.5, platelets 92. Sodium 141, potassium 4.2, chloride 105, anion gap 9, BUN 30, creatinine 0.82, calcium 9, AST 64, ALT 57, alkaline 276, C-reactive protein elevated at 0.7, sed rate elevated at 70, total protein 8.2, albumin 2.9. DIAGNOSTIC IMAGING Head CT scan without contrast with no acute intracranial abnormality. Sphenoid sinus disease. DIAGNOSTIC IMPRESSION - Probable giant cell arteritis. In light of the recent onset of temporal headache, temporal tenderness with feeble pulse on the temporal artery of the right side, this may be a possible case of temporal arteritis. PLAN 1. Neuro checks q.4 hourly. 2. Temporal artery biopsy. 3. Initiate prednisone 60 mg daily. 4. GI prophylaxis. Thank you for the opportunity to participate in the care of your patient. MD ROSALINDA Hernandez/LUCERO /8:29 AM /8:36 AM TERRY
[2016-08-09 12:00] VITALS: BP_SYST 180; BP_SYST 190; BP_DIAS 84; BP_DIAS 93; PULSE 70; RESP 16; TEMP 96.8; O2SAT 96
[2016-08-09] MEDS ORDERED: INSULIN HUMAN REGULAR 1,000 UNITS/10 ML VIAL IV PUSH ONE ×2 (12:00→17:00)
[2016-08-09] MEDS ORDERED: SODIUM CHLOR 0.9% 1000 ML INJ 1,000 ML IV ONE ×2 (12:00→16:15)
[2016-08-09] MEDS: ENALAPRILAT 1.25 MG/ML VIAL IV PUSH PRN ×2 (12:30→16:27)
[2016-08-09 12:56] LABS: BLOOD GAS BASE EXCESS -4.1 mmol/L (-2-2); BLOOD GAS CARBOXYHEMOGLOBIN 1.4 % (0-4); BLOOD GAS HCO3 20 mmol/L (22-26); BLOOD GAS METHEMOGLOBIN 0.5 % (0-2); BLOOD GAS O2 HGB SATURATION 95 % (90-100); BLOOD GAS OXYGEN CONTENT 21.1 Vol % (12.0-20.0); BLOOD GAS PCO2 34 mmHg (38-42); BLOOD GAS PO2 93 mmHg (61-120); BLOOD GAS TOTAL HGB 15.8 G/DL (12.0-16.0); CRITICAL VALUE NO; FIO2 21 %; OXYGEN DEVICE room air; TEMP CORR TO 98.6
[2016-08-09 12:57] LABS: DRAW SITE RT RADIAL; NUMBER OF ARTERIAL PUNCTURES 1; STAT NO; ULNAR PULSE Y
[2016-08-09 14:19] LABS: BICARBONATE 21.2 MEQ/L (21.0-32.0); POTASSIUM 4.6 MEQ/L (3.5-5.1)
--- NOTE | 2016-08-09 14:52 | EKG ---
Date Performed: 08/08/2016 Time Performed: 10:52:00 PTAGE: 66 years EKG: Sinus rhythm POSSIBLE INFERIOR MYOCARDIAL INFARCTION Compared to previous tracing, nonspecific septal T wave newsome ges are no longer evident. BORDERLINE ECG PREVIOUS TRACING : 06/28/2016 18.09.36 DOCTOR: Clair Soto Interpretating Date/Time 08/09/2016 14:51:57
--- NOTE | 2016-08-09 14:56 | HHI.PR ---
Subjective Remarks Follow up for headache, suspected temporal arteritis. The patient reports her headache is gone now, she believes it was relieved by the steroids. Denies any visual changes or dizziness. She has been ambulating her room without difficulty. Eating well. Her blood glucose is uncontrolled today, currently 515. The patient reports polydipsia. She has no other medical complaints at this time. Objective Vitals Vital Signs Date Time Temp Pulse Resp B/P Pulse Ox O2 Delivery O2 Flow Rate FiO2 08/09/16 12:00 96.8 70 16 190/93 96 180/84 08/09/16 08:00 96.6 82 16 171/78 96 08/09/16 04:00 97.6 81 18 158/76 95 08/09/16 00:00 97.6 84 18 146/65 96 08/08/16 21:00 83 138/80 08/08/16 20:00 98.2 77 16 175/79 96 08/08/16 17:17 98.1 80 16 174/75 97 08/08/16 15:30 98.8 81 14 149/79 96 Nasal Cannula 2 08/08/16 15:15 84 14 155/88 97 Nasal Cannula 2 08/08/16 15:00 84 14 165/86 97 Nasal Cannula 2 08/08/16 14:45 81 14 155/85 96 Nasal Cannula 2 I/O 08/08/16 08/08/16 08/08/16 08/09/16 08/09/16 08/09/16 07:00 15:00 23:00 07:00 15:00 23:00 Intake Total 400 ml 200 ml 240 ml Output Total 0 ml 250 ml Balance 400 ml 200 ml -10 ml Intake Oral 0 ml 240 ml IV Total 200 ml 0 ml Other 400 ml Output Urine Total 0 ml 250 ml Estimated Blood Loss 0 ml # Voids 0 # Bowel Movements 0 Result Diagram: 08/09/16 0343 08/09/16 1346 Imaging Last Impressions Head CT 08/08/16 0034 Signed Impressions: Service Date/Time: Monday, August 08, 2016 01:06 - CONCLUSION: No acute intracranial abnormality. Sphenoid sinus disease. Dejan Trejo MD Objective Remarks GENERAL: Well-nourished, well-developed pleasant female patient in [facility]. SKIN: Warm and dry. No rash. HEAD: Normocephalic. Atraumatic. EYES: Pupils equal and round. No scleral icterus. No injection or drainage. NECK: Supple. Trachea midline. CARDIOVASCULAR: Regular rate and rhythm. S1, S2 noted. No murmur appreciated. RESPIRATORY: No accessory muscle use. Clear to auscultation. Breath sounds equal bilaterally. GASTROINTESTINAL: Abdomen soft, non-tender, nondistended. Normoactive bowel sounds x4. MUSCULOSKELETAL: No obvious deformities. Extremities without clubbing, cyanosis , or edema. NEUROLOGICAL: Awake and alert. No obvious cranial nerve deficits. Motor grossly within normal limits. Normal speech. PSYCHIATRIC: Appropriate mood and affect; insight and judgment normal. Medications and IVs Current Medications Medications (Trade) Dose Ordered Sig/Miranda Route Start Time Stop Time Status Last Admin (NS Flush) 2 ml UNSCH PRN FLUSH 08/08/16 05:00 (NS Flush) 2 ml BID FLUSH 08/08/16 09:00 08/09/16 07:55 (Narcan Inj) 0.4 mg UNSCH PRN IV 08/08/16 05:00 (Deltasone) 60 mg DAILY PO 08/08/16 09:00 08/09/16 07:52 (Protonix) 40 mg DAILY PO 08/08/16 09:00 08/09/16 07:49 (Lasix) 20 mg DAILY PO 08/08/16 09:00 08/09/16 07:49 (Synthroid) 75 mcg DAILY@06 PO 08/08/16 06:45 08/09/16 06:00 (Antivert) 25 mg TID PRN PO 08/08/16 06:15 (Purinethol) 50 mg DAILY PO 08/08/16 09:00 08/09/16 07:54 (KCl) 10 meq DAILY PO 08/08/16 09:00 08/09/16 07:49 (Xifaxan) 550 mg Q12HR PO 08/08/16 09:00 08/09/16 07:49 (Zoloft) 50 mg DAILY PO 08/08/16 09:00 08/09/16 07:50 (Lactulose Liq) 30 ml BID PO 08/08/16 09:00 08/09/16 07:49 (D50w (Vial) Inj) 25 ml UNSCH PRN IV PUSH 12/30/16 06:15 (Glucagon Inj) 1 mg UNSCH PRN OTHER 08/08/16 06:15 (Vasotec Inj) 1.25 mg Q6HR PRN IV PUSH 08/08/16 12:00 08/09/16 12:30 (Lopressor) 25 mg Q12HR PO 08/08/16 21:00 08/09/16 07:51 (Levemir Inj) 23 units BID SQ 08/09/16 09:00 08/09/16 09:23 Urinary Catheter: No Vascular Central Line Catheter: No A/P Problem List: (1) Temporal headache ICD Code: R51 Status: Acute (2) Temporal arteritis ICD Code: M31.6 Status: Acute (3) Type 2 diabetes mellitus ICD Code: E11.9 Status: Chronic (4) Hypertension ICD Code: I10 Status: Chronic (5) Hypothyroidism ICD Code: E03.9 Status: Chronic Assessment and Plan 66-year-old female with hx of DM, HTN, depression, autoimmune hepatitis, cirrhosis with ascites, hypocalcemia, upper GI bleed, hypo-albuminuria, and hypothyroidism who presented to the ED complaining of right temporal scalp pain for 2 weeks. Temporal headache - suspicion of temporal arteritis/giant cell arteritis Head CT with no acute intracranial abnormality noted. - Solu-Medrol IV was given in the ER -continue on prednisone 60 mg per day - Consulted general surgery, patient is s/p right superficial temporal artery biopsy on 08/08 - Consulted neurology, appreciate specialist input - headache improved Hyperglycemia with uncontrolled Type 2 diabetes mellitus, not in DKA - Accu-Cheks and before meals and medium dose NovoLog SSI - Blood glucose 515 today, likely exacerbated by steroids, not being on diabetic diet after surgery, and levemir was held while NPO - s/p IV regular insulin 10u this morning, and 8units this afternoon - restart patient's Levemir 23u sq bid - Hypoglycemia protocol - Diabetic diet - continue to monitor and adjust medications as needed - F/up with her reception clerk Dr. Ray with [facility] Hypertension Currently accelerated. Received IV labetalol in the ED. Could contribute to headache as above. -Continue IV Vasotec prn -Increased home metoprolol dose Hypothyroidism -Continue home Synthroid OSVALDO: Cr 1.44 today, previously 0.82 upon arrival on 08/08 - Continue IVF - Avoid further nephrotoxins - Repeat BMP in the morning DVT prophylaxis - SCDs Written by Lela Raymond, acting as scribe for Dr. Mittal on 08/09/16 at 13: 00. Attending Statement The documentation accurately reflects the work performed [id number] by me, Dr. Mittal on 08/09/16 at 13:00. Problem Qualifiers (1) Hypertension: Qualified Code: I10 - Essential hypertension Lela Raymond PA-C Aug 09, 2016 14:56 Ayden Mittal MD Aug 09, 2016 22:53
[2016-08-09 16:00] VITALS: BP_SYST 189; BP_SYST 190; BP_DIAS 88; BP_DIAS 91; PULSE 66; RESP 17; TEMP 97.4; O2SAT 96
--- NOTE | 2016-08-09 18:33 | HHI.PR ---
Subjective Subjective Notes No complaints, no numbness in front of incision Objective Vitals/I&O Vital Signs Date Time Temp Pulse Resp B/P Pulse Ox O2 Delivery O2 Flow Rate FiO2 08/09/16 16:00 97.4 66 17 189/91 96 190/88 08/08/16 15:30 Nasal Cannula 2 Labs Laboratory Tests Test 08/09/16 08/09/16 08/09/16 03:43 12:50 13:46 White Blood Count 4.7 Red Blood Count 2.85 Hemoglobin 9.6 Hematocrit 28.4 Mean Corpuscular Volume 99.7 Mean Corpuscular Hemoglobin 33.7 Mean Corpuscular Hemoglobin 33.8 Concent Red Cell Distribution Width 15.1 Platelet Count 86 Mean Platelet Volume 10.9 Neutrophils (%) (Auto) 73.3 Lymphocytes (%) (Auto) 15.9 Monocytes (%) (Auto) 10.5 Eosinophils (%) (Auto) 0.1 Basophils (%) (Auto) 0.2 Neutrophils # (Auto) 3.5 Lymphocytes # (Auto) 0.8 Monocytes # (Auto) 0.5 Eosinophils # (Auto) 0.0 Basophils # (Auto) 0.0 CBC Comment AUTO DIFF Differential Comment AUTO DIFF CONFIRMED Platelet Estimate LOW Platelet Morphology Comment NORMAL Keratocytes OCC Sodium Level 138 134 Potassium Level 4.7 4.6 Chloride Level 105 100 Carbon Dioxide Level 19.9 21.2 Anion Gap 13 13 Blood Urea Nitrogen 34 36 Creatinine 1.24 1.44 Estimat Glomerular Filtration 43 37 Rate Random Glucose 479 515 Calcium Level 8.4 8.7 Blood Gas Puncture Site RT RADIAL Blood Gas Patient Temperature 98.6 Blood Gas HCO3 20 Blood Gas Base Excess -4.1 Blood Gas Oxygen Saturation 95 Arterial Blood pH 7.39 Arterial Blood Partial 34 Pressure CO2 Arterial Blood Partial 93 Pressure O2 Arterial Blood Oxygen Content 21.1 Arterial Blood 1.4 Carboxyhemoglobin Arterial Blood Methemoglobin 0.5 Blood Gas Hemoglobin 15.8 Oxygen Delivery Device room air Blood Gas Inspired Oxygen 21 Lungs: Clear Narrative Exam Steristrip intact without drainage. No swelling A/P Assessment and Plan POD #1 RIGHT temporal artery biopsy, doing well Plan: Will sign off. Reconsult as needed. No need for follow up; instructions for wound care given. Vlad Alexis MD Aug 09, 2016 18:33
[2016-08-09 20:00] VITALS: BP 164/85; PULSE 66; RESP 20; TEMP 97.9; O2SAT 95
[2016-08-09] MEDS: INSULIN DETEMIR 100 UNITS/ML VIAL SQ SCH (21:01)
[2016-08-10] VITALS (10 sets, daily range): BP systolic 160–185; BP diastolic 72–97; PULSE 65–68; RESP 17–20; TEMP 95.3–98.6; O2SAT 95–98
[2016-08-10] MEDS: ENALAPRILAT 1.25 MG/ML VIAL IV PUSH PRN ×2 (00:42→17:20)
[2016-08-10] MEDS: SODIUM CHLOR 0.45% 1000 ML INJ 1,000 ML IV SCH ×3 (00:43→19:00)
[2016-08-10] MEDS: LEVOTHYROXINE SODIUM 75 MCG TAB PO SCH (04:56)
[2016-08-10] MEDS: INSULIN ASPART SUPPLEMENTAL SCALE SQ SCH ×4 (05:02→20:54)
[2016-08-10 07:17] LABS: ANION GAP 8 MEQ/L (5-15); BICARBONATE 23.3 MEQ/L (21.0-32.0); BLOOD UREA NITROGEN 35 MG/DL (7-18); CHLORIDE 108 MEQ/L (98-107); GLOMERULAR FILTRATION RATE 56 ML/MIN (>89); POTASSIUM 4.3 MEQ/L (3.5-5.1); SODIUM (NA) 139 MEQ/L (136-145)
[2016-08-10] MEDS: FUROSEMIDE 20 MG TAB PO SCH (08:17)
[2016-08-10] MEDS: predniSONE 20 MG TAB PO SCH (08:17)
[2016-08-10] MEDS: RIFAXIMIN 550 MG TAB PO SCH ×2 (08:17→20:52)
[2016-08-10] MEDS: PANTOPRAZOLE SOD 40 MG DELAYED RELEASE TAB PO SCH (08:18)
[2016-08-10] MEDS: INSULIN DETEMIR 100 UNITS/ML VIAL SQ SCH ×2 (08:18→20:53)
[2016-08-10] MEDS: METOPROLOL TARTRATE 25 MG TAB PO SCH ×2 (08:18→20:52)
[2016-08-10] MEDS: LACTULOSE SYRUP 20 GM/30 ML CUP PO SCH ×2 (08:18→20:52)
[2016-08-10] MEDS: POTASSIUM CHLORIDE 10 MEQ CONTROLLED RELEASE TAB PO SCH (08:18)
[2016-08-10] MEDS: SERTRALINE HCL 50 MG TAB PO SCH (08:18)
[2016-08-10] MEDS: SODIUM CHLORIDE 0.9% FLUSH 5 ML FLUSH FLUSH SCH ×2 (08:19→20:48)
[2016-08-10] MEDS: MERCAPTOPURINE 50 MG TAB PO SCH (09:00)
--- NOTE | 2016-08-10 10:44 | HHI.FF ---
Face to Face Verification Diagnosis: (1) Diabetic neuropathy (2) Brittle diabetes (3) Unsteady gait Physical Therapy Order: Evaluate and Treat Home Health Nursing Order: Diabetic education Nursing assessment with vital signs I have seen patient Shaista Mooney on 08/10/16. My clinical findings support the need for the requested home health care services because: Deconditioned w/ increased weakness I certify that my clinical findings support that this patient is homebound because: Unsafe to leave home unassisted Ayden Mittal MD Aug 10, 2016 10:44
[2016-08-10] MEDS ORDERED: MISC-274 (10:45)
--- NOTE | 2016-08-10 12:04 | HHI.PR ---
Subjective Remarks Follow up for headache, suspected temporal arteritis, and uncontrolled DM. The patient reports feeling better today. Headache has been gone now for the past 2 days. Eating well, having normal BMs. Blood glucose much improved, 128 this morning. Objective Vitals Vital Signs Date Time Temp Pulse Resp B/P Pulse Ox O2 Delivery O2 Flow Rate FiO2 08/10/16 08:00 96.8 68 17 166/79 95 08/10/16 04:31 95 21 08/10/16 04:00 98.6 68 17 160/72 96 08/10/16 00:00 98.6 65 17 174/89 96 08/09/16 20:00 97.9 66 20 164/85 95 08/09/16 16:00 97.4 66 17 189/91 96 190/88 08/09/16 12:00 96.8 70 16 190/93 96 180/84 I/O 08/09/16 08/09/16 08/09/16 08/10/16 08/10/16 08/10/16 07:00 15:00 23:00 07:00 15:00 23:00 Intake Total 240 ml 1260 ml 1795 ml 568 ml Output Total 250 ml 650 ml 700 ml 250 ml Balance -10 ml 610 ml 1095 ml 318 ml Intake Oral 240 ml 960 ml 240 ml 240 ml IV Total 0 ml 300 ml 1555 ml 328 ml Output Urine Total 250 ml 650 ml 700 ml 250 ml # Bowel Movements 0 4 0 0 Result Diagram: 08/09/16 0343 08/10/16 0532 Imaging Last Impressions Head CT 08/08/16 0034 Signed Impressions: Service Date/Time: Monday, August 08, 2016 01:06 - CONCLUSION: No acute intracranial abnormality. Sphenoid sinus disease. Dejan Trejo MD Objective Remarks GENERAL: Well-nourished, well-developed pleasant female patient in [facility]. SKIN: Warm and dry. No rash. HEAD: Normocephalic. Atraumatic. Right temporal with small bandage s/p biopsy. EYES: Pupils equal and round. No scleral icterus. No injection or drainage. NECK: Supple. Trachea midline. CARDIOVASCULAR: Regular rate and rhythm. S1, S2 noted. No murmur appreciated. RESPIRATORY: No accessory muscle use. Clear to auscultation. Breath sounds equal bilaterally. GASTROINTESTINAL: Abdomen soft, non-tender, nondistended. Normoactive bowel sounds x4. MUSCULOSKELETAL: No obvious deformities. Extremities without clubbing, cyanosis , or edema. NEUROLOGICAL: Awake and alert. No obvious cranial nerve deficits. Motor grossly within normal limits. Normal speech. PSYCHIATRIC: Appropriate mood and affect; insight and judgment normal. Medications and IVs Current Medications Medications (Trade) Dose Ordered Sig/Miranda Route Start Time Stop Time Status Last Admin (NS Flush) 2 ml UNSCH PRN FLUSH 08/08/16 05:00 (NS Flush) 2 ml BID FLUSH 08/08/16 09:00 08/10/16 08:19 (Narcan Inj) 0.4 mg UNSCH PRN IV 08/08/16 05:00 (Deltasone) 60 mg DAILY PO 08/08/16 09:00 08/10/16 08:17 (Protonix) 40 mg DAILY PO 08/08/16 09:00 08/10/16 08:18 (Lasix) 20 mg DAILY PO 08/08/16 09:00 08/10/16 08:17 (Synthroid) 75 mcg DAILY@06 PO 08/08/16 06:45 08/10/16 04:56 (Antivert) 25 mg TID PRN PO 08/08/16 06:15 (Purinethol) 50 mg DAILY PO 08/08/16 09:00 08/09/16 07:54 (KCl) 10 meq DAILY PO 08/08/16 09:00 08/10/16 08:18 (Xifaxan) 550 mg Q12HR PO 08/08/16 09:00 08/10/16 08:17 (Zoloft) 50 mg DAILY PO 08/08/16 09:00 08/10/16 08:18 (Lactulose Liq) 30 ml BID PO 08/08/16 09:00 08/10/16 08:18 (D50w (Vial) Inj) 25 ml UNSCH PRN IV PUSH 08/08/16 06:15 (Glucagon Inj) 1 mg UNSCH PRN OTHER 08/08/16 06:15 (Vasotec Inj) 1.25 mg Q6HR PRN IV PUSH 08/08/16 12:00 08/10/16 00:42 (Lopressor) 25 mg Q12HR PO 08/08/16 21:00 08/10/16 08:18 Insulin Detemir 28 units 28 units BID SQ 08/09/16 21:00 08/10/16 08:18 (1/2 NS 1000 ml Inj) 1,000 ml @ 100 mls/hr Q10H IV 08/09/16 23:00 08/10/16 00:43 Urinary Catheter: No Vascular Central Line Catheter: No A/P Problem List: (1) Temporal headache ICD Code: R51 Status: Acute (2) Temporal arteritis ICD Code: M31.6 Status: Acute (3) Type 2 diabetes mellitus ICD Code: E11.9 Status: Chronic (4) Hypertension ICD Code: I10 Status: Chronic (5) Hypothyroidism ICD Code: E03.9 Status: Chronic Assessment and Plan 66-year-old female with hx of DM, HTN, depression, autoimmune hepatitis, cirrhosis with ascites, hypocalcemia, upper GI bleed, hypo-albuminuria, and hypothyroidism who presented to the ED complaining of right temporal scalp pain for 2 weeks. Temporal headache - suspicion of temporal arteritis/giant cell arteritis Head CT with no acute intracranial abnormality noted. - Solu-Medrol IV was given in the ER -continued on prednisone 60 mg daily - Consulted general surgery, patient is s/p right superficial temporal artery biopsy on 08/08 - Consulted neurology, appreciate specialist input - headache resolved x2days Hyperglycemia with uncontrolled Type 2 diabetes mellitus, not in DKA - Accu-Cheks and before meals and medium dose NovoLog SSI - Blood glucose 515 yesterday, likely exacerbated by steroids, not being on diabetic diet after surgery, and levemir was held while NPO - restart patient's Levemir 23u sq bid - Hypoglycemia protocol - Diabetic diet - continue to monitor and adjust medications as needed - F/up with her sheet heater helper Dr. Ray with [facility] - blood glucose much better controlled today, in the low 100s Hypertension Currently accelerated. Received IV labetalol in the ED. Could contribute to headache as above. -Continue IV Vasotec prn -Increased home metoprolol dose Hypothyroidism -Continue home Synthroid OSVALDO: Cr 1.44 on 08/09, previously 0.82 upon arrival on 08/08 - Continue IVF - Avoid further nephrotoxins - Repeat BMP today shows improvement, Cr 1.00 DVT prophylaxis - SCDs Written by Lela Raymond, acting as scribe for Dr. Mittal on 08/10/16 at 10:25. Discharge Planning See discharge summary. Attending Statement The documentation accurately reflects the work performed [id number] by me, Dr. Mittal on 08/10/16 at 10:25. Problem Qualifiers (1) Hypertension: Qualified Code: I10 - Essential hypertension Lela Raymond PA-C Aug 10, 2016 12:04 Ayden Mittal MD Aug 10, 2016 23:05
[2016-08-10] MEDS ORDERED: PANT40TA3 PO (12:25)
[2016-08-10] MEDS ORDERED: LEVEMIR SQ (12:25)
[2016-08-10] MEDS ORDERED: METO25TA3 PO (12:25)
[2016-08-10] MEDS ORDERED: PRED20 PO (12:25)
--- NOTE | 2016-08-10 15:03 | HHI.DS ---
cc: Dr. Luis Clark; Kary Cpaps MD Discharge Summary Admission Date Aug 08, 2016 at 04:59 Discharge Date: Aug 10, 2016 Admitting Diagnosis R Temporal Cephalgia (1) Temporal headache ICD Code: R51 Diagnosis: Principal (2) Temporal arteritis ICD Code: M31.6 Diagnosis: Principal (3) Type 2 diabetes mellitus ICD Code: E11.9 Diagnosis: Secondary (4) Hypertension ICD Code: I10 Diagnosis: Secondary (5) Hypothyroidism ICD Code: E03.9 Diagnosis: Secondary Procedures s/p right superficial temporal artery biopsy on 08/08 Brief History - From Admission Ms. Mooney is a 66 year old female with a history of diabetes mellitus, depression, hypertension, autoimmune hepatitis, cirrhosis of liver with ascites , hypocalcemia, upper GI bleed, hypo-albuminuria, and hypothyroidism who presented to the emergency room complaining of right temporal scalp pain for 2 weeks. At the time of our visit, she had been medicated with Ativan IV if you are's prior along with Compazine and IV Benadryl. She is very lethargic but will awaken long enough to answer a few questions but drifts back to sleep. She reports that she's been having severe right anabaptism head pain for the past 2 weeks and cannot hear out of her left ear. She states that yesterday she experienced severe nausea and vomiting. She also reports photosensitivity. She denies localized weakness or paresthesias. She denies dysuria, hematuria, shortness of breath, chest pain. She reports neck pain but states that this is chronic in nature and unchanged. The patient sees Dr. Serrano for GI, Dr. Ray for endocrine, Dr. Quinonez for dermatology, Dr. Giron for cardiology, Dr. Schaeffer for ophthalmology, and Dr. Walker for podiatry. . CBC/BMP: 08/09/16 0343 08/10/16 0532 Significant Findings Laboratory Tests Test 08/08/16 08/09/16 08/09/16 08/09/16 00:40 03:43 12:50 13:46 White Blood Count 3.8 TH/MM3 (4.0-11.0) Red Blood Count 3.07 MIL/MM3 2.85 MIL/MM3 (4.00-5.30) (4.00-5.30) Hemoglobin 10.3 GM/DL 9.6 GM/DL (11.6-15.3) (11.6-15.3) Hematocrit 29.9 % 28.4 % (35.0-46.0) (35.0-46.0) Platelet Count 92 TH/MM3 86 TH/MM3 (150-450) (150-450) Monocytes (%) (Auto) 11.6 % 10.5 % (0.0-8.0) (0.0-8.0) Platelet Estimate LOW (NORMAL) LOW (NORMAL) Erythrocyte Sedimentation Rate 78 mm/hr (0-30) Blood Urea Nitrogen 30 MG/DL (7-18) 34 MG/DL (7-18) 36 MG/DL (7-18) Estimat Glomerular Filtration 70 ML/MIN (>89) 43 ML/MIN (>89) 37 ML/MIN (>89) Rate Random Glucose 158 MG/DL 479 MG/DL 515 MG/DL (74-106) (74-106) (74-106) Aspartate Amino Transf 64 U/L (15-37) (AST/SGOT) Alanine Aminotransferase 57 U/L (10-53) (ALT/SGPT) Alkaline Phosphatase 276 U/L (45-117) C-Reactive Protein 0.70 MG/DL (0.00-0.30) Albumin 2.9 GM/DL (3.4-5.0) Neutrophils (%) (Auto) 73.3 % (16.0-70.0) Lymphocytes # (Auto) 0.8 TH/MM3 (1.0-4.8) Keratocytes OCC (NORMAL) Carbon Dioxide Level 19.9 MEQ/L (21.0-32.0) Creatinine 1.24 MG/DL 1.44 MG/DL (0.50-1.00) (0.50-1.00) Calcium Level 8.4 MG/DL (8.5-10.1) Blood Gas HCO3 20 mmol/L (22-26) Blood Gas Base Excess -4.1 mmol/L (-2-2) Arterial Blood Partial 34 mmHg (38-42) Pressure CO2 Arterial Blood Oxygen Content 21.1 Vol % (12.0-20.0) Sodium Level 134 MEQ/L (136-145) Test 08/10/16 05:32 Chloride Level 108 MEQ/L (98-107) Blood Urea Nitrogen 35 MG/DL (7-18) Estimat Glomerular Filtration 56 ML/MIN (>89) Rate Random Glucose 128 MG/DL (74-106) Calcium Level 8.4 MG/DL (8.5-10.1) Imaging Last Impressions Head CT 08/08/16 0034 Signed Impressions: Service Date/Time: Monday, August 08, 2016 01:06 - CONCLUSION: No acute intracranial abnormality. Sphenoid sinus disease. Dejan Trejo MD PE at Discharge GENERAL: Well-nourished, well-developed pleasant female patient in [facility]. SKIN: Warm and dry. No rash. HEAD: Normocephalic. Atraumatic. Right temporal with small bandage s/p biopsy. EYES: Pupils equal and round. No scleral icterus. No injection or drainage. NECK: Supple. Trachea midline. CARDIOVASCULAR: Regular rate and rhythm. S1, S2 noted. No murmur appreciated. RESPIRATORY: No accessory muscle use. Clear to auscultation. Breath sounds equal bilaterally. GASTROINTESTINAL: Abdomen soft, non-tender, nondistended. Normoactive bowel sounds x4. MUSCULOSKELETAL: No obvious deformities. Extremities without clubbing, cyanosis , or edema. NEUROLOGICAL: Awake and alert. No obvious cranial nerve deficits. Motor grossly within normal limits. Normal speech. PSYCHIATRIC: Appropriate mood and affect; insight and judgment normal. Hospital Course 66-year-old female with hx of DM, HTN, depression, autoimmune hepatitis, cirrhosis with ascites, hypocalcemia, upper GI bleed, hypo-albuminuria, and hypothyroidism who presented to the ED complaining of right temporal scalp pain for 2 weeks. Temporal headache - suspicion of temporal arteritis/giant cell arteritis Head CT with no acute intracranial abnormality noted. - Solu-Medrol IV was given in the ER -continued on prednisone 60 mg daily - Consulted general surgery, patient is s/p right superficial temporal artery biopsy on 08/08 - Consulted neurology, appreciate specialist input - headache resolved x2days - biopsy pending at time of discharge - discharge on prednisone Hyperglycemia with uncontrolled Type 2 diabetes mellitus, not in DKA - Accu-Cheks and before meals and medium dose NovoLog SSI - Blood glucoses were uncontrolled, 515 yesterday, likely exacerbated by steroids, not being on diabetic diet after surgery, and Levemir was held while NPO - restarted patient's Levemir 23u sq bid - Hypoglycemia protocol - Diabetic diet - continue to monitor and adjust medications as needed - F/up with her switchman supervisor Dr. Ray with [facility] - blood glucose much better controlled today, in the low 100s Hypertension Currently accelerated. Received IV labetalol in the ED. Could contribute to headache as above. -Continue IV Vasotec prn -Increased home metoprolol dose to 25mg bid Hypothyroidism -Continue home Synthroid OSVALDO: Cr 1.44 on 08/09, previously 0.82 upon arrival on 08/08 - Continue IVF - Avoid further nephrotoxins - Repeat BMP today shows improvement, Cr 1.00 DVT prophylaxis - SCDs Written by Lela Raymond, acting as scribe for Dr. Mittal on 08/10/16 at 10:25. Pt Condition on Discharge: Stable Discharge Disposition: Disch w/ Home Health Serv Discharge Time: > 30 minutes Discharge Instructions DIET: Follow Instructions for: Diabetic Diet Activities you can perform: Regular-No Restrictions Follow up Referrals: Endocrinology - 2-3 Days Neurology - 1 Week with Kary Capps MD PCP Follow-up - 2-3 Days with Luis Clark Do New Medications: Folding Walker/5" Wheels (Folding Walker/5" Wheels) 1 Mis Mis 1 EA .ROUTE DIRECTED #1 EA Metoprolol Tartrate (Metoprolol Tartrate) 25 Mg Tab 25 MG PO Q12HR Blood Pressure Management #60 TAB Pantoprazole (Pantoprazole) 40 Mg Tab 40 MG PO DAILY gastric protection #30 TAB Prednisone (Prednisone) 20 Mg Tab 60 MG PO DAILY Take 60mg daily [id number] or until seen by neurologist temporal arteritis #90 TAB Changed Medications: Insulin Detemir Inj (Levemir Inj) 1,000 unit/ 10 ML Vial 25 UNITS SQ BID Do not mix with any other Insulin. Blood Sugar Management #100 Ref 0 VIAL (Changed from: 23 UNITS) Continued Medications: Ascorbic Acid (Vitamin C) 500 Mg Tab 500 MG PO DAILY Nutritional Supplement Ref 0 TAB Cholecalciferol (Vitamin D3) 1,000 Unit Tab 1000 UNITS PO DAILY Nutritional Supplement #1 Ref 0 BOTTLE Ezetimibe (Zetia) 10 Mg Tab 10 MG PO DAILY #30 Ref 0 TAB Furosemide (Lasix) 20 Mg Tab 20 MG PO DAILY #30 Ref 0 TAB Insulin Lispro (Human) Inj (Humalog Inj) 1,000 Unit/10 Ml Vial 6-16 UNITS SQ ACHS SLIDING SCALE #1 Ref 0 VIAL Lactulose (Encephalopathy) Liq (Enulose Liq) 10 Gm/15 Ml Soln 20 GM PO BID Levothyroxine (Levothyroxine) 75 Mcg Tab 75 MCG PO DAILY Thyroid #30 Ref 0 TAB Meclizine (Meclizine) 25 Mg Tab 25 MG PO TID PRN VERTIGO #20 Ref 0 TAB Mercaptopurine (Mercaptopurine) 50 Mg Tab 50 MG PO DAILY Chemotherapy Management Ref 0 TAB Potassium Chloride ER (Klor-Con 10) 10 Meq Tab 10 MEQ PO DAILY Electrolyte Replacement #30 Ref 0 TAB Rifaximin (Xifaxan) 550 Mg Tab 550 MG PO Q12HR Hepatic encephalopathy #60 Ref 0 TAB Sertraline (Zoloft) 50 Mg Tab 50 MG PO DAILY #90 Ref 1 TAB Discontinued Medications: Metoprolol Tartrate (Metoprolol Tartrate) 25 Mg Tab 12.5 MG PO Q12HR CAD #60 Ref 0 TAB Lela Raymond PA-C Aug 10, 2016 15:03 Rifaximin (Xifaxan) 550 Mg Tab 550 MG PO Q12HR Hepatic encephalopathy #60 Ref 0 TAB Sertraline (Zoloft) 50 Mg Tab 50 MG PO DAILY #90 Ref 1 TAB Discontinued Medications: Metoprolol Tartrate (Metoprolol Tartrate) 25 Mg Tab 12.5 MG PO Q12HR CAD #60 Ref 0 TAB Lela Raymond PA-C Aug 10, 2016 15:03
[2016-08-10] MEDS ORDERED: INSULIN ASPART SUPPLEMENTAL SCALE SQ SCH (21:00)
[2016-08-11] VITALS: BP 162/73; PULSE 67; RESP 20; TEMP 98.8; O2SAT 98
[2016-08-11 04:00] VITALS: BP 147/76; PULSE 62; RESP 20; TEMP 97.3; O2SAT 98
[2016-08-11] MEDS: SODIUM CHLOR 0.45% 1000 ML INJ 1,000 ML IV SCH (05:00)
[2016-08-11] MEDS: LEVOTHYROXINE SODIUM 75 MCG TAB PO SCH (05:46)
[2016-08-11] MEDS: INSULIN ASPART SUPPLEMENTAL SCALE SQ SCH ×4 (05:50→20:31)
[2016-08-11] MEDS: POTASSIUM CHLORIDE 10 MEQ CONTROLLED RELEASE TAB PO SCH (07:52)
[2016-08-11] MEDS: FUROSEMIDE 20 MG TAB PO SCH (07:52)
[2016-08-11] MEDS: LACTULOSE SYRUP 20 GM/30 ML CUP PO SCH ×2 (07:52→20:30)
[2016-08-11] MEDS: SERTRALINE HCL 50 MG TAB PO SCH (07:52)
[2016-08-11] MEDS: METOPROLOL TARTRATE 25 MG TAB PO SCH ×2 (07:52→20:29)
[2016-08-11] MEDS: RIFAXIMIN 550 MG TAB PO SCH ×2 (07:53→20:29)
[2016-08-11] MEDS: PANTOPRAZOLE SOD 40 MG DELAYED RELEASE TAB PO SCH (07:53)
[2016-08-11] MEDS: INSULIN DETEMIR 100 UNITS/ML VIAL SQ SCH ×2 (07:54→20:31)
[2016-08-11] MEDS: SODIUM CHLORIDE 0.9% FLUSH 5 ML FLUSH FLUSH SCH ×2 (07:54→20:28)
[2016-08-11 08:00] VITALS: BP 163/72; PULSE 66; RESP 17; TEMP 97; O2SAT 98
[2016-08-11] MEDS ORDERED: predniSONE 20 MG TAB PO SCH (09:00)
[2016-08-11 12:00] VITALS: BP_SYST 160; BP_SYST 180; BP_DIAS 80; BP_DIAS 89; PULSE 62; RESP 18; TEMP 97.4; O2SAT 97
[2016-08-11 16:00] VITALS: BP 162/63; PULSE 64; RESP 17; TEMP 97.3; O2SAT 97
[2016-08-11 17:42] LABS: HEMOGLOBIN A1a 1.4 %; HEMOGLOBIN A1b 0.8 %; HEMOGLOBIN Ao 79.3 %; HEMOGLOBIN F 2.1 %; HEMOGLOBIN LA1C 2.1 %; HEMOGLOBIN P3 5.6 %
--- NOTE | 2016-08-11 18:52 | HHI.PR ---
Subjective Remarks Patient seen this morning around 11 AM. She says she is feeling well. Headache resolved. Blood pressure was fairly high in the 120s systolic. However cuff oversize. Discussed with nursing will use appropriate size cuff. Objective Vital Signs Date Time Temp Pulse Resp B/P Pulse Ox O2 Delivery O2 Flow Rate FiO2 08/11/16 16:00 97.3 64 17 162/63 97 08/11/16 12:00 97.4 62 18 160/80 97 08/11/16 12:00 97.4 62 18 180/89 97 08/11/16 08:00 97.0 66 17 163/72 98 08/11/16 04:00 97.3 62 20 147/76 98 08/11/16 00:00 98.8 67 20 162/73 98 08/10/16 22:18 96 21 08/10/16 20:00 96.5 65 20 166/97 98 I/O 08/10/16 08/10/16 08/10/16 08/11/16 08/11/16 08/11/16 06:59 14:59 22:59 06:59 14:59 22:59 Intake Total 568 ml 240 ml 360 ml 120 ml Output Total 250 ml 700 ml 700 ml 700 ml Balance 318 ml -460 ml 360 ml -580 ml -700 ml Intake Oral 240 ml 240 ml 360 ml 120 ml IV Total 328 ml 0 ml Output Urine Total 250 ml 700 ml 700 ml 700 ml # Voids 1 # Bowel Movements 0 0 0 0 1 Result Diagram: 08/09/16 0343 08/10/16 0532 Objective Remarks GENERAL: sitting up in bed. Appears couple. Alert and oriented 3. SKIN: Warm and dry. HEAD: Normocephalic. Right temporal artery biopsy site with Steri-Strips intact. No signs of infection. EYES: No scleral icterus. No injection or drainage. NECK: Supple, trachea midline. No JVD or lymphadenopathy. CARDIOVASCULAR: Regular rate and rhythm without murmurs, gallops, or rubs. RESPIRATORY: Breath sounds equal bilaterally. No accessory muscle use. GASTROINTESTINAL: Abdomen soft, non-tender, nondistended. MUSCULOSKELETAL: No cyanosis, or edema. BACK: Nontender without obvious deformity. No CVA tenderness. A/P Assessment and Plan 66-year-old female with hx of DM, HTN, depression, autoimmune hepatitis, cirrhosis with ascites, hypocalcemia, upper GI bleed, hypo-albuminuria, and hypothyroidism who presented to the ED complaining of right temporal scalp pain for 2 weeks. Temporal headache - suspicion of temporal arteritis/giant cell arteritis Head CT with no acute intracranial abnormality noted. - Solu-Medrol IV was given in the ER -continued on prednisone 60 mg daily - Consulted general surgery, patient is s/p right superficial temporal artery biopsy on 08/08 - Consulted neurology, appreciate specialist input - headache resolved x3days -08/11. Biopsy negative. Sedimentation rate decreased, but still elevated in the 60s. Prednisone decreased. Possible biopsy negative giant cell arteritis. We'll decrease prednisone to minimum starting dose of 20 mg daily. Hyperglycemia with uncontrolled Type 2 diabetes mellitus, not in DKA - Accu-Cheks and before meals and medium dose NovoLog SSI - Blood glucose 515 yesterday, likely exacerbated by steroids, not being on diabetic diet after surgery, and levemir was held while NPO - restart patient's Levemir 23u sq bid - Hypoglycemia protocol - Diabetic diet - continue to monitor and adjust medications as needed - F/up with her video editor Dr. Ray with [facility] -Blood glucose low this morning in the 50s. 140 before lunch, did not get coverage. However elevated in the 300s this afternoon. Likely elevated secondary to missing meal coverage this morning. As prednisone is being decreased, we will decrease Levemir to 23 units twice daily, adjust sliding scale to provide at least 4 units of meal coverage for glucose above 80. A1c is still pending. Patient did report glucose elevated over 500s once a week in the past. Hypertension Currently accelerated. Received IV labetalol in the ED. Could contribute to headache as above. -Continue IV Vasotec prn -Increased home metoprolol dose 1/2. Decrease IV fluids to 45 mL per hour. Expect improvement with decrease prednisone dose. Hypothyroidism -Continue home Synthroid OSVALDO: Cr 1.44 on 08/09, previously 0.82 upon arrival on 08/08 - Continue IVF - Avoid further nephrotoxins - Repeat BMP today shows improvement, Cr 1.00 DVT prophylaxis - SCDs Discharge Planning If glucose controlled tomorrow, and headache continues resolved, can discharge home on prednisone. Ayden Mittal MD Aug 11, 2016 18:52
[2016-08-11 20:00] VITALS: BP 164/82; PULSE 66; RESP 20; TEMP 95.5; O2SAT 98
[2016-08-11] MEDS: predniSONE 10 MG TAB PO SCH (20:30)
[2016-08-11] MEDS ORDERED: INSULIN DETEMIR 100 UNITS/ML VIAL SQ SCH (21:00)
[2016-08-12] VITALS (10 sets, daily range): BP systolic 130–194; BP diastolic 67–91; PULSE 60–72; RESP 17–20; TEMP 97.6–98.7; O2SAT 94–98
[2016-08-12] MEDS: LEVOTHYROXINE SODIUM 75 MCG TAB PO SCH (05:30)
[2016-08-12] MEDS: INSULIN ASPART SUPPLEMENTAL SCALE SQ SCH ×2 (05:57→12:03)
[2016-08-12] MEDS: ENALAPRILAT 1.25 MG/ML VIAL IV PUSH PRN (07:41)
[2016-08-12] MEDS: predniSONE 10 MG TAB PO SCH (08:49)
[2016-08-12] MEDS: METOPROLOL TARTRATE 25 MG TAB PO SCH (08:49)
[2016-08-12] MEDS: POTASSIUM CHLORIDE 10 MEQ CONTROLLED RELEASE TAB PO SCH (08:49)
[2016-08-12] MEDS: LACTULOSE SYRUP 20 GM/30 ML CUP PO SCH (08:51)
[2016-08-12] MEDS: SERTRALINE HCL 50 MG TAB PO SCH (08:52)
[2016-08-12] MEDS: RIFAXIMIN 550 MG TAB PO SCH (08:52)
[2016-08-12] MEDS: PANTOPRAZOLE SOD 40 MG DELAYED RELEASE TAB PO SCH (08:52)
[2016-08-12] MEDS: INSULIN DETEMIR 100 UNITS/ML VIAL SQ SCH (08:53)
[2016-08-12] MEDS: MERCAPTOPURINE 50 MG TAB PO SCH (08:53)
[2016-08-12] MEDS: SODIUM CHLORIDE 0.9% FLUSH 5 ML FLUSH FLUSH SCH (08:56)
[2016-08-12] MEDS ORDERED: NIFEdipine 30 MG SUSTAINED RELEASE TAB PO SCH (09:00)
[2016-08-12] MEDS ORDERED: predniSONE 20 MG TAB PO SCH (09:00)
[2016-08-12] MEDS ORDERED: ASPIRIN EC 81 MG TABEC PO SCH (09:00)
[2016-08-12] MEDS: FUROSEMIDE 20 MG TAB PO SCH (09:09)
[2016-08-12] MEDS ORDERED: NIFE30TA8 PO (10:57)
[2016-08-12] MEDS ORDERED: PRED10 PO (10:57)
[2016-08-12] MEDS ORDERED: CLON0.1T PO (12:39)
[2016-08-12] MEDS ORDERED: NIFEdipine 30 MG SUSTAINED RELEASE TAB PO ONE (12:45)
[2016-08-12] MEDS ORDERED: cloNIDine HCL 0.1 MG TAB PO ONE (13:00)
[2016-08-12] MEDS ORDERED: cloNIDine HCL 0.1 MG TAB PO SCH (14:00)
--- NOTE | 2016-08-12 23:47 | HHI.PR ---
Subjective Remarks continuous morning around 11 AM. Patient says she feels well. Denies any chest pain or shortness of breath. Denies any headache. Says she feels like going home, however blood pressure elevated Discussed with nursing. Systolic blood pressures 180 this morning. Improved a little with nifedipine, as well as clonidine which we will continue 3 times daily. Objective Vital Signs Date Time Temp Pulse Resp B/P Pulse Ox O2 Delivery O2 Flow Rate FiO2 08/12/16 16:00 97.7 65 17 130/68 95 08/12/16 15:54 145/67 08/12/16 14:22 186/88 08/12/16 12:31 194/91 08/12/16 12:30 194/91 08/12/16 12:00 98.7 60 18 189/86 98 08/12/16 11:44 186/84 08/12/16 08:45 183/88 08/12/16 08:00 98.6 69 17 179/84 94 08/12/16 00:00 97.6 72 20 158/76 96 I/O 08/11/16 08/11/16 08/11/16 08/12/16 08/12/16 08/12/16 07:00 15:00 23:00 07:00 15:00 23:00 Intake Total 120 ml 600 ml 220 ml 960 ml Output Total 700 ml 700 ml 450 ml 500 ml 1000 ml Balance -580 ml -700 ml 150 ml -280 ml -40 ml Intake Oral 120 ml 600 ml 220 ml 960 ml Output Urine Total 700 ml 700 ml 450 ml 500 ml 1000 ml # Bowel Movements 0 1 0 0 1 Result Diagram: 08/09/16 0343 08/10/16 0532 Objective Remarks GENERAL: pt sitting up in bed. Appears comfortable. Alert and oriented 3. SKIN: Warm and dry. HEAD: Normocephalic. Right temporal artery biopsy site with Steri-Strips intact. No signs of infection.unchanged. EYES: No scleral icterus. No injection or drainage. NECK: Supple, trachea midline. No JVD or lymphadenopathy. CARDIOVASCULAR: Regular rate and rhythm without murmurs, gallops, or rubs. RESPIRATORY: Breath sounds equal bilaterally. No accessory muscle use. GASTROINTESTINAL: Abdomen soft, non-tender, nondistended. MUSCULOSKELETAL: No cyanosis, or edema. BACK: Nontender without obvious deformity. No CVA tenderness. A/P Assessment and Plan 66-year-old female with hx of DM, HTN, depression, autoimmune hepatitis, cirrhosis with ascites, hypocalcemia, upper GI bleed, hypo-albuminuria, and hypothyroidism who presented to the ED complaining of right temporal scalp pain for 2 weeks. She was started on high-dose steroids, and right temporal artery biopsy was obtained. He experienced hyperglycemia which was difficult to control on steroids. Upon return of biopsy negative for giant cell arteritis, prednisone was decreased to 10 mg twice daily. Blood pressure was also found to be elevated. This improved with the addition of nifedipine, as well as clonidine. Patient will need to follow up with primary care for further tapering of prednisone, as there does remain a possibility of biopsy-negative temporal arteritis. Temporal headache - suspicion of temporal arteritis/giant cell arteritis Head CT with no acute intracranial abnormality noted. - Solu-Medrol IV was given in the ER -continued on prednisone 60 mg daily - Consulted general surgery, patient is s/p right superficial temporal artery biopsy on 08/08 - Consulted neurology, appreciate specialist input - headache resolved x3days -08/11. Biopsy negative. Sedimentation rate decreased, but still elevated in the 60s. Prednisone decreased. Possible biopsy negative giant cell arteritis. We'll decrease prednisone to minimum starting dose of 20 mg daily, 30 given as 10 mg twice daily. This will need to be tapered down by her primary care.. Hyperglycemia with uncontrolled Type 2 diabetes mellitus, not in DKA - Accu-Cheks and before meals and medium dose NovoLog SSI - Blood glucose 515 yesterday, likely exacerbated by steroids, not being on diabetic diet after surgery, and levemir was held while NPO - restart patient's Levemir 23u sq bid - Hypoglycemia protocol - Diabetic diet - continue to monitor and adjust medications as needed - F/up with her zoo keeper Dr. Ray with [facility] -Blood glucose low this morning in the 50s. 140 before lunch, did not get coverage. However elevated in the 300s this afternoon. Likely elevated secondary to missing meal coverage this morning. As prednisone is being decreased, we will decrease Levemir to 23 units twice daily, adjust sliding scale to provide at least 4 units of meal coverage for glucose above 80. -A1c 8.5. Patient did report glucose elevated over 500s once a week in the past. - Hypertension Currently accelerated. Received IV labetalol in the ED. Could contribute to headache as above. -Continue IV Vasotec prn -Increased home metoprolol dose 1/2. Decrease IV fluids to 45 mL per hour. Expect improvement with decrease prednisone dose. 1/3 blood pressure improved with addition of nifedipine, clonidine 3 times daily. Expect to improve with decrease of prednisone by primary care Hypothyroidism -Continue home Synthroid OSVALDO: Cr 1.44 on 08/09, previously 0.82 upon arrival on 08/08 -Resolved after IVF - Avoid further nephrotoxins - Repeat BMP today shows improvement, Cr 1.00 DVT prophylaxis - SCDs Discharge Planning discharge home on prednisone. follow-up with primary care and endocrinology. Ayden Mittal MD Aug 12, 2016 23:47
[2016-08-14] MEDS ORDERED: ZETI10TA5 PO (08:04)
--- NOTE | 2016-09-01 15:13 | HHI.DS ---
Discharge Summary Admission Date Aug 08, 2016 at 04:59 Discharge Date: Aug 12, 2016 Admitting Diagnosis R Temporal Cephalgia (1) Temporal headache ICD Code: R51 Diagnosis: Principal (2) Temporal arteritis ICD Code: M31.6 Diagnosis: Principal (3) Type 2 diabetes mellitus ICD Code: E11.9 Diagnosis: Secondary (4) Hypertension ICD Code: I10 Diagnosis: Secondary (5) Hypothyroidism ICD Code: E03.9 Diagnosis: Secondary Procedures s/p right superficial temporal artery biopsy on 08/08 Brief History - From Admission Ms. Mooney is a 66 year old female with a history of diabetes mellitus, depression, hypertension, autoimmune hepatitis, cirrhosis of liver with ascites , hypocalcemia, upper GI bleed, hypo-albuminuria, and hypothyroidism who presented to the emergency room complaining of right temporal scalp pain for 2 weeks. At the time of our visit, she had been medicated with Ativan IV if you are's prior along with Compazine and IV Benadryl. She is very lethargic but will awaken long enough to answer a few questions but drifts back to sleep. She reports that she's been having severe right judaism head pain for the past 2 weeks and cannot hear out of her left ear. She states that yesterday she experienced severe nausea and vomiting. She also reports photosensitivity. She denies localized weakness or paresthesias. She denies dysuria, hematuria, shortness of breath, chest pain. She reports neck pain but states that this is chronic in nature and unchanged. The patient sees Dr. Serrano for GI, Dr. Ray for endocrine, Dr. Quinonez for dermatology, Dr. Giron for cardiology, Dr. Schaeffer for ophthalmology, and Dr. Walker for podiatry. . Imaging Last Impressions Head CT 08/08/16 0034 Signed Impressions: Service Date/Time: Monday, August 08, 2016 01:06 - CONCLUSION: No acute intracranial abnormality. Sphenoid sinus disease. Dejan Trejo MD PE at Discharge GENERAL: Well-nourished, well-developed pleasant female patient in [facility]. SKIN: Warm and dry. No rash. HEAD: Normocephalic. Atraumatic. Right temporal with small bandage s/p biopsy. EYES: Pupils equal and round. No scleral icterus. No injection or drainage. NECK: Supple. Trachea midline. CARDIOVASCULAR: Regular rate and rhythm. S1, S2 noted. No murmur appreciated. RESPIRATORY: No accessory muscle use. Clear to auscultation. Breath sounds equal bilaterally. GASTROINTESTINAL: Abdomen soft, non-tender, nondistended. Normoactive bowel sounds x4. MUSCULOSKELETAL: No obvious deformities. Extremities without clubbing, cyanosis , or edema. NEUROLOGICAL: Awake and alert. No obvious cranial nerve deficits. Motor grossly within normal limits. Normal speech. PSYCHIATRIC: Appropriate mood and affect; insight and judgment normal. Hospital Course 66-year-old female with hx of DM, HTN, depression, autoimmune hepatitis, cirrhosis with ascites, hypocalcemia, upper GI bleed, hypo-albuminuria, and hypothyroidism who presented to the ED complaining of right temporal scalp pain for 2 weeks. She was started on high-dose steroids, and right temporal artery biopsy was obtained. He experienced hyperglycemia which was difficult to control on steroids. Upon return of biopsy negative for giant cell arteritis, prednisone was decreased to 10 mg twice daily. Blood pressure was also found to be elevated. This improved with the addition of nifedipine, as well as clonidine. Patient will need to follow up with primary care for further tapering of prednisone, as there does remain a possibility of biopsy-negative temporal arteritis. Temporal headache - suspicion of temporal arteritis/giant cell arteritis Head CT with no acute intracranial abnormality noted. - Solu-Medrol IV was given in the ER -continued on prednisone 60 mg daily - Consulted general surgery, patient is s/p right superficial temporal artery biopsy on 08/08 - Consulted neurology, appreciate specialist input - headache resolved x3days -08/11. Biopsy negative. Sedimentation rate decreased, but still elevated in the 60s. Prednisone decreased. Possible biopsy negative giant cell arteritis. We'll decrease prednisone to minimum starting dose of 20 mg daily, 30 given as 10 mg twice daily. This will need to be tapered down by her primary care.. Hyperglycemia with uncontrolled Type 2 diabetes mellitus, not in DKA - Accu-Cheks and before meals and medium dose NovoLog SSI - Blood glucose 515 yesterday, likely exacerbated by steroids, not being on diabetic diet after surgery, and levemir was held while NPO - restart patient's Levemir 23u sq bid - Hypoglycemia protocol - Diabetic diet - continue to monitor and adjust medications as needed - F/up with her blacksmith apprentice Dr. Ray with [facility] -Blood glucose low this morning in the 50s. 140 before lunch, did not get coverage. However elevated in the 300s this afternoon. Likely elevated secondary to missing meal coverage this morning. As prednisone is being decreased, we will decrease Levemir to 23 units twice daily, adjust sliding scale to provide at least 4 units of meal coverage for glucose above 80. -A1c 8.5. Patient did report glucose elevated over 500s once a week in the past. - Hypertension Currently accelerated. Received IV labetalol in the ED. Could contribute to headache as above. -Continue IV Vasotec prn -Increased home metoprolol dose 1/2. Decrease IV fluids to 45 mL per hour. Expect improvement with decrease prednisone dose. 1/3 blood pressure improved with addition of nifedipine, clonidine 3 times daily. Expect to improve with decrease of prednisone by primary care Hypothyroidism -Continue home Synthroid OSVALDO: Cr 1.44 on 08/09, previously 0.82 upon arrival on 08/08 -Resolved after IVF - Avoid further nephrotoxins - Repeat BMP today shows improvement, Cr 1.00 DVT prophylaxis - SCDs Pt Condition on Discharge: Stable Discharge Disposition: Disch w/ Home Health Serv Discharge Time: <= 30 minutes Discharge Instructions DIET: Follow Instructions for: Diabetic Diet Activities you can perform: Regular-No Restrictions Follow up Referrals: Endocrinology - 2-3 Days Neurology - 1 Week with Kary Capps MD PCP Follow-up - 2-3 Days with Luis Clark Do New Medications: Clonidine (Clonidine) 0.1 Mg Tab 0.1 MG PO TID Blood Pressure Management #60 Ref 0 TAB Folding Walker/5" Wheels (Folding Walker/5" Wheels) 1 Mis Mis 1 EA .ROUTE DIRECTED #1 EA Metoprolol Tartrate (Metoprolol Tartrate) 25 Mg Tab 25 MG PO Q12HR Blood Pressure Management #60 TAB Nifedipine ER 24 HR (Nifedipine ER 24 HR) 30 Mg Tab 30 MG PO DAILY blood pressure Days 30 TAB Pantoprazole (Pantoprazole) 40 Mg Tab 40 MG PO DAILY gastric protection #30 TAB Prednisone (Prednisone) 10 Mg Tab 10 MG PO BID possible Giant cell arteritis Days 30 TAB Changed Medications: Insulin Detemir Inj (Levemir Inj) 1,000 unit/ 10 ML Vial 25 UNITS SQ BID Do not mix with any other Insulin. Blood Sugar Management #100 Ref 0 VIAL (Changed from: 23 UNITS) Continued Medications: Ascorbic Acid (Vitamin C) 500 Mg Tab 500 MG PO DAILY Nutritional Supplement Ref 0 TAB Cholecalciferol (Vitamin D3) 1,000 Unit Tab 1000 UNITS PO DAILY Nutritional Supplement #1 Ref 0 BOTTLE Furosemide (Lasix) 20 Mg Tab 20 MG PO DAILY #30 Ref 0 TAB Insulin Lispro (Human) Inj (Humalog Inj) 1,000 Unit/10 Ml Vial 6-16 UNITS SQ ACHS SLIDING SCALE #1 Ref 0 VIAL Lactulose (Encephalopathy) Liq (Enulose Liq) 10 Gm/15 Ml Soln 20 GM PO BID Levothyroxine (Levothyroxine) 75 Mcg Tab 75 MCG PO DAILY Thyroid #30 Ref 0 TAB Meclizine (Meclizine) 25 Mg Tab 25 MG PO TID PRN VERTIGO #20 Ref 0 TAB Mercaptopurine (Mercaptopurine) 50 Mg Tab 50 MG PO DAILY Chemotherapy Management Ref 0 TAB Potassium Chloride ER (Klor-Con 10) 10 Meq Tab 10 MEQ PO DAILY Electrolyte Replacement #30 Ref 0 TAB Rifaximin (Xifaxan) 550 Mg Tab 550 MG PO Q12HR Hepatic encephalopathy #60 Ref 0 TAB Sertraline (Zoloft) 50 Mg Tab 50 MG PO DAILY #90 Ref 1 TAB Discontinued Medications: Metoprolol Tartrate (Metoprolol Tartrate) 25 Mg Tab 12.5 MG PO Q12HR CAD #60 Ref 0 TAB Ayden Mittal MD Sep 01, 2016 15:13
== END 2016-08-12 18:02 | disposition home or self-care (01) ==
LOC: NEPC 00:08 → NEDA 04:59 → NEPFCDU 06:21 → N07B 13:31 → N07A 15:53
PROVIDERS: ADMIT Internal Medicine; ATTEND Internal Medicine
DX: I77.6 Arteritis, unspecified (principal); R21 Rash and other nonspecific skin eruption; K75.4 Autoimmune hepatitis; R53.83 Other fatigue; E11.65 Type 2 diabetes mellitus with hyperglycemia; Z79.82 Long term (current) use of aspirin; M19.90 Unspecified osteoarthritis, unspecified site; F41.9 Anxiety disorder, unspecified; I45.10 Unspecified right bundle-branch block; I10 Essential (primary) hypertension; K74.60 Unspecified cirrhosis of liver; Z79.899 Other long term (current) drug therapy; Z79.4 Long term (current) use of insulin; E03.9 Hypothyroidism, unspecified
CPT/HCPCS: 00352; 36600; 37609; 70450; 80048; 80053; 82805; 82948; 83036; 85025; 85652; 86140; 88304; 93005; 96361; 96374; 96375; 97001; 97110; 97116; 99285; G0378; G8987; G8988; J0780; J1200; J1815; J2060; J2250; J2930; J3010; J7030; J7120; J7512

== ENCOUNTER 2016-10-10 17:07 | Observation (INO) | payer OTHER, MEDICAID ==
[~2016-10-10] VITALS: Ht 157.5 cm; Wt 50.0 kg
[~2016-10-10 17:07] MED LIST changes: +CLON0.1T PO; +MISC-274; +NIFE30TA8 PO; +PANT40TA3 PO; +PRED10 PO
[2016-10-10 17:15] VITALS: BP 82/49; PULSE 60; RESP 20; TEMP 97.7; O2SAT 96
--- NOTE | 2016-10-10 17:42 | PD ---
HPI Chief Complaint: Diabetic Time Seen by Provider: 17:21 Travel History International Travel<30 days: No Contact w/Intl Traveler<30days: No Traveled to known affect area: No History of Present Illness HPI 66yo F with PMH of IDDM, autoimmune hepatitis, HTN, temporal arteritis presents to the ED with c/o feeling foggy today. Her daughter found her sitting on the kitchen today and checked her glucose and it was elevated in the 400s so she then took her insulin. Blood glucose here is 250. BP was also found to be low at home. Pt states that she feels foggy usually when her glucose is elevated or low. Pt also with generalized weakness for a few days. Pt increased her lactulose dose because she was instructed to do that when she feels foggy. Pt has been recently evaluated by [facility] for liver transplant but she is not a candidate yet. PFSH Past Medical History Hx Anticoagulant Therapy: Yes (ASPIRIN 81mg) Arthritis: Yes Asthma: No Autoimmune Disease: Yes (HEPATITIS) Blood Disorders: No Anxiety: Yes Depression: Yes Heart Rhythm Problems: Yes (RBBB) Cancer: No Cardiovascular Problems: Yes (HTN) High Cholesterol: No Chemotherapy: No Chest Pain: No Congestive Heart Failure: No Cirrhosis: Yes COPD: No Cerebrovascular Accident: No Diabetes: Yes Patient Takes Glucophage: No Diminished Hearing: No Endocrine: Yes Gastrointestinal Disorders: No GERD: No Genitourinary: No Headaches: Yes Hepatitis: Yes (AUTOIMMUNE) Hypertension: Yes Immune Disorder: Yes Implanted Vascular Access Dvce: No Musculoskeletal: No Neurologic: Yes Psychiatric: Yes Reproductive: No Respiratory: No Immunizations Current: Yes Radiation Therapy: No Seizures: No Sleep Apnea: No Thyroid Disease: No Ovarian Cysts: Yes (1985) Past Surgical History Abdominal Surgery: Yes (APPENDECTOMY) Appendectomy: Yes Gynecologic Surgery: Yes (HYSTERECTOMY ) Hysterectomy: Yes Pacemaker: No Other Surgery: Yes (LIVER/BREAST BIOPSY) Social History Alcohol Use: No (PT DENIES) Tobacco Use: No Substance Use: No (PT DENIES) Allergies-Medications (Allergen,Severity, Reaction): Coded Allergies: Morphine (Verified Allergy, Severe, Rash, 10/10/16) Penicillin (Verified Allergy, Severe, Rash, 10/10/16) Tetracycline (Verified Allergy, Severe, Rash, 10/10/16) Clindamycin (Verified Allergy, Unknown, Nausea/Vomiting, 10/10/16) Sulfa (Verified Allergy, Unknown, Rash, 10/10/16) Reported Meds & Prescriptions Reported Meds & Active Scripts Active Zetia (Ezetimibe) 10 Mg Tab 10 Mg PO DAILY Clonidine (Clonidine HCl) 0.1 Mg Tab 0.1 Mg PO TID Nifedipine ER 24 HR (Nifedipine) 30 Mg Tab 30 Mg PO DAILY 30 Days Prednisone 10 Mg Tab 10 Mg PO BID 30 Days Pantoprazole (Pantoprazole Sodium) 40 Mg Tab 40 Mg PO DAILY Metoprolol Tartrate 25 Mg Tab 25 Mg PO Q12HR Levemir Inj (Insulin Detemir) 1,000 unit/ 10 ML Vial 25 Units SQ BID Do not mix with any other Insulin. Folding Walker/5" Wheels (Device) 1 Mis Mis 1 Ea .ROUTE DIRECTED Zoloft (Sertraline HCl) 50 Mg Tab 50 Mg PO DAILY Meclizine (Meclizine HCl) 25 Mg Tab 25 Mg PO TID PRN Klor-Con 10 (Potassium Chloride) 10 Meq Tab 10 Meq PO DAILY Reported Vitamin D3 (Cholecalciferol) 1,000 Unit Tab 1,000 Units PO DAILY Vitamin C (Ascorbic Acid) 500 Mg Tab 500 Mg PO DAILY Levothyroxine (Levothyroxine Sodium) 75 Mcg Tab 75 Mcg PO DAILY Lasix (Furosemide) 20 Mg Tab 20 Mg PO DAILY Humalog Inj (Insulin Human Lispro) 1,000 Unit/10 Ml Vial 6-16 Units SQ ACHS Xifaxan (Rifaximin) 550 Mg Tab 550 Mg PO Q12HR Mercaptopurine 50 Mg Tab 50 Mg PO DAILY Enulose Liq (Lactulose (Encephalopathy) Liq) 10 Gm/15 Ml Soln 20 Gm PO BID Review of Systems Except as stated in HPI: all other systems reviewed are Neg Physical Exam Narrative GENERAL: 66yo F not in distress. AAOx3. SKIN: Warm and dry. HEAD: Atraumatic. Normocephalic. EYES: Pupils equal and round. EOMI. No nystagmus. No scleral icterus. No injection or drainage. ENT: No nasal bleeding or discharge. Mucous membranes pink and moist. NECK: Trachea midline. No JVD. CARDIOVASCULAR: Regular rate and rhythm. No murmur appreciated. RESPIRATORY: No accessory muscle use. Clear to auscultation. Breath sounds equal bilaterally. GASTROINTESTINAL: Abdomen soft, non-tender, nondistended. No rebound tenderness or guarding. MUSCULOSKELETAL: No obvious deformities. No clubbing. No cyanosis. No edema. NEUROLOGICAL: Awake and alert. No obvious cranial nerve deficits. Motor grossly within normal limits. Normal speech. PSYCHIATRIC: Appropriate mood and affect; insight and judgment normal. Data Data Last Documented VS Vital Signs Date Time Temp Pulse Resp B/P Pulse Ox O2 Delivery O2 Flow Rate FiO2 10/10/16 19:25 56 18 122/66 59 18 101/59 74 22 93/55 10/10/16 17:15 97.7 96 Room Air Orders Complete Blood Count With Diff (10/10/16 17:37) Comprehensive Metabolic Panel (10/10/16 17:37) Ammonia (10/10/16 17:37) Beta Hydroxybutyrate (Acetone) (10/10/16 17:37) Urinalysis - C+S If Indicated (10/10/16 17:37) Sodium Chlor 0.9% 1000 Ml Inj (Ns 1000 M (10/10/16 17:45) Electrocardiogram (10/10/16 ) Orthostatic Blood Pressure (10/10/16 18:15) Urine Culture (10/10/16 20:08) Ceftriaxone Inj (Rocephin Inj) (10/10/16 21:45) Labs Laboratory Tests Test 10/10/16 10/10/16 17:48 20:08 White Blood Count 4.8 TH/MM3 Red Blood Count 3.63 MIL/MM3 Hemoglobin 12.1 GM/DL Hematocrit 35.9 % Mean Corpuscular Volume 98.9 FL Mean Corpuscular Hemoglobin 33.4 PG Mean Corpuscular Hemoglobin 33.8 % Concent Red Cell Distribution Width 15.5 % Platelet Count 112 TH/MM3 Mean Platelet Volume 11.4 FL Neutrophils (%) (Auto) 82.1 % Lymphocytes (%) (Auto) 11.5 % Monocytes (%) (Auto) 5.3 % Eosinophils (%) (Auto) 0.5 % Basophils (%) (Auto) 0.6 % Neutrophils # (Auto) 3.9 TH/MM3 Lymphocytes # (Auto) 0.6 TH/MM3 Monocytes # (Auto) 0.3 TH/MM3 Eosinophils # (Auto) 0.0 TH/MM3 Basophils # (Auto) 0.0 TH/MM3 CBC Comment DIFF FINAL Differential Comment Sodium Level 137 MEQ/L Potassium Level 4.6 MEQ/L Chloride Level 98 MEQ/L Carbon Dioxide Level 28.8 MEQ/L Anion Gap 10 MEQ/L Blood Urea Nitrogen 43 MG/DL Creatinine 1.74 MG/DL Estimat Glomerular Filtration 29 ML/MIN Rate Random Glucose 254 MG/DL Calcium Level 9.8 MG/DL Total Bilirubin 0.5 MG/DL Aspartate Amino Transf 54 U/L (AST/SGOT) Alanine Aminotransferase 76 U/L (ALT/SGPT) Alkaline Phosphatase 385 U/L Ammonia 27 MCMOL/L Total Protein 8.2 GM/DL Albumin 3.1 GM/DL B-Hydroxybutyrate 0.27 MMOL/L Urine Color YELLOW Urine Turbidity HAZY Urine pH 5.0 Urine Specific [place] 1.016 Urine Protein 30 mg/dL Urine Glucose (UA) TRACE mg/dL Urine Ketones NEG mg/dL Urine Occult Blood NEG Urine Nitrite NEG Urine Bilirubin NEG Urine Urobilinogen 2.0 MG/DL Urine Leukocyte Esterase MOD Urine WBC 8 /hpf Urine Squamous Epithelial 1 /hpf Cells Urine Bacteria RARE /hpf Urine Hyaline Casts 68 /lpf Urine Mucus FEW /lpf Microscopic Urinalysis Comment CULTURE INDICATED MDM Medical Decision Making Medical Screen Exam Complete: Yes Emergency Medical Condition: Yes Differential Diagnosis Uncontrolled DM vs. DKA vs. UTI vs. dehydration vs. hepatic encephalopathy Narrative Course 66yo F here with elevated blood glucose, low blood pressure. Pt is on 3 HTN medications. Metoprolol, clonidine and nifedipine. BP at triage was 82/49 and pt is receiving IVF NS. Labs reviewed, no leukocytosis. Thrombocytopenia at 112 but better than her baseline. Glucose 254. BUN/Creatinine increased at 43/1.74. LFT and alk phos elevated but at baseline. No increased anion gap. K: 4.6. Ammonia is normal at 27. b-hydroxybutyrate normal. Pt reevaluated at bedside and feels a little better. BP is now 96/53 with IVF NS. Sign out to next team to follow up EKG, UA and reevaluate for disposition. Diagnosis Primary Impression: Hyperglycemia Vannesa Campbell DO Oct 10, 2016 17:42
[2016-10-10] MEDS ORDERED: SODIUM CHLOR 0.9% 1000 ML INJ 1,000 ML IV ONE (17:45)
[2016-10-10 18:07] LABS: AUTOMATED NEUTROPHIL # 3.9 TH/MM3 (1.8-7.7); BASOPHIL % 0.6 % (0.0-2.0); EOSINOPHIL % 0.5 % (0.0-4.0); HEMATOCRIT 35.9 % (35.0-46.0); HEMO FLAGS DIFF FINAL; LYMPH % 11.5 % (9.0-44.0); LYMPHOCYTE # 0.6 TH/MM3 (1.0-4.8); MEAN CELL VOLUME 98.9 FL (80.0-100.0); MEAN CORPUSCULAR HEMOGLOBIN 33.4 PG (27.0-34.0); MEAN CORPUSCULAR HGB CONC 33.8 % (32.0-36.0); MONO % 5.3 % (0.0-8.0); NEUT % 82.1 % (16.0-70.0); PLATELET COUNT 112 TH/MM3 (150-450); RED BLOOD COUNT 3.63 MIL/MM3 (4.00-5.30); RED CELL DISTRIBUTION WIDTH 15.5 % (11.6-17.2); WHITE BLOOD COUNT 4.8 TH/MM3 (4.0-11.0)
[2016-10-10 18:28] LABS: ANION GAP 10 MEQ/L (5-15); AST (GOT) 54 U/L (15-37); BICARBONATE 28.8 MEQ/L (21.0-32.0); BLOOD UREA NITROGEN 43 MG/DL (7-18); CHLORIDE 98 MEQ/L (98-107); GLOMERULAR FILTRATION RATE 29 ML/MIN (>89); POTASSIUM 4.6 MEQ/L (3.5-5.1); SODIUM (NA) 137 MEQ/L (136-145)
[2016-10-10 18:32] LABS: ALKALINE PHOSPHATASE 385 U/L (45-117); ALT (GPT) 76 U/L (10-53); BETA-HYDROXYBUTYRATE 0.27 MMOL/L (0.00-0.39); TOTAL BILIRUBIN ADULT 0.5 MG/DL (0.2-1.0)
[2016-10-10 19:25] VITALS: BP_SYST 101; BP_SYST 122; BP_SYST 93; BP_DIAS 55; BP_DIAS 59; BP_DIAS 66; RESP 18; RESP 22
[2016-10-10 20:55] LABS: BACTERIA, URINE RARE /hpf; BLOOD, URINE NEG (NEG); COMMENT (UR) CULTURE INDICATED; CULTURE IF INDICATED CULTURE INDICATED; GLUCOSE,URINE TRACE mg/dL (NEG); HYALINE CAST, URINE 68 /lpf (RARE); KETONE, URINE NEG (NEG); MUCUS URINE FEW /lpf (OCC); NITRITE,URINE NEG (NEG); SQUAMOUS EPITHELIAL CELL URINE 1 /hpf (0-5); URINE COLOR YELLOW (YELLW/STRAW)
[2016-10-10] MEDS ORDERED: cefTRIAXone INJ 1,000 MG in SODIUM CHLORIDE 0.9% INJ 100 ML IV ONE (21:45)
--- NOTE | 2016-10-10 21:54 | PD ---
Physical Exam Narrative Patient signed out to me by Dr. Campbell. Please see her documentation for full history and physical details. Briefly, patient comes in today complaining of "feeling foggy." She says that she also noticed her blood pressure was quite low this morning. She says that her legs gave out on her and she was unable to get up off the floor. She called for her daughter to come and help her. The daughter says that she seemed very out of it at that time so she came into the hospital. She has been on 3 antihypertensive medications since August. She has been to 2 other doctors appointments this week and was told that her blood pressure was low. She was also concerned that her sugar may be high because she is on prednisone and she was concerned her ammonia level might be high so she took an extra dose of lactulose. Data Data Last Documented VS Vital Signs Date Time Temp Pulse Resp B/P Pulse Ox O2 Delivery O2 Flow Rate FiO2 10/10/16 19:25 56 18 122/66 59 18 101/59 74 22 93/55 10/10/16 17:15 97.7 96 Room Air Orders Complete Blood Count With Diff (10/10/16 17:37) Comprehensive Metabolic Panel (10/10/16 17:37) Ammonia (10/10/16 17:37) Beta Hydroxybutyrate (Acetone) (10/10/16 17:37) Urinalysis - C+S If Indicated (10/10/16 17:37) Sodium Chlor 0.9% 1000 Ml Inj (Ns 1000 M (10/10/16 17:45) Electrocardiogram (10/10/16 ) Orthostatic Blood Pressure (10/10/16 18:15) Urine Culture (10/10/16 20:08) Ceftriaxone Inj (Rocephin Inj) (10/10/16 21:45) Diet Diabetic (10/11/16 Breakfast) Admit Order (Ed Use Only) (10/10/16 ) Labs Laboratory Tests Test 10/10/16 10/10/16 17:48 20:08 White Blood Count 4.8 TH/MM3 Red Blood Count 3.63 MIL/MM3 Hemoglobin 12.1 GM/DL Hematocrit 35.9 % Mean Corpuscular Volume 98.9 FL Mean Corpuscular Hemoglobin 33.4 PG Mean Corpuscular Hemoglobin 33.8 % Concent Red Cell Distribution Width 15.5 % Platelet Count 112 TH/MM3 Mean Platelet Volume 11.4 FL Neutrophils (%) (Auto) 82.1 % Lymphocytes (%) (Auto) 11.5 % Monocytes (%) (Auto) 5.3 % Eosinophils (%) (Auto) 0.5 % Basophils (%) (Auto) 0.6 % Neutrophils # (Auto) 3.9 TH/MM3 Lymphocytes # (Auto) 0.6 TH/MM3 Monocytes # (Auto) 0.3 TH/MM3 Eosinophils # (Auto) 0.0 TH/MM3 Basophils # (Auto) 0.0 TH/MM3 CBC Comment DIFF FINAL Differential Comment Sodium Level 137 MEQ/L Potassium Level 4.6 MEQ/L Chloride Level 98 MEQ/L Carbon Dioxide Level 28.8 MEQ/L Anion Gap 10 MEQ/L Blood Urea Nitrogen 43 MG/DL Creatinine 1.74 MG/DL Estimat Glomerular Filtration 29 ML/MIN Rate Random Glucose 254 MG/DL Calcium Level 9.8 MG/DL Total Bilirubin 0.5 MG/DL Aspartate Amino Transf 54 U/L (AST/SGOT) Alanine Aminotransferase 76 U/L (ALT/SGPT) Alkaline Phosphatase 385 U/L Ammonia 27 MCMOL/L Total Protein 8.2 GM/DL Albumin 3.1 GM/DL B-Hydroxybutyrate 0.27 MMOL/L Urine Color YELLOW Urine Turbidity HAZY Urine pH 5.0 Urine Specific [place] 1.016 Urine Protein 30 mg/dL Urine Glucose (UA) TRACE mg/dL Urine Ketones NEG mg/dL Urine Occult Blood NEG Urine Nitrite NEG Urine Bilirubin NEG Urine Urobilinogen 2.0 MG/DL Urine Leukocyte Esterase MOD Urine WBC 8 /hpf Urine Squamous Epithelial 1 /hpf Cells Urine Bacteria RARE /hpf Urine Hyaline Casts 68 /lpf Urine Mucus FEW /lpf Microscopic Urinalysis Comment CULTURE INDICATED MDM Supervised Visit with OVIDIO: No Narrative Course Patient was hypotensive on arrival with a systolic blood pressure of 82. Her blood pressure did come up with fluids. She is orthostatic. Labs show a creatinine of 1.74, which is up from in August. Urinalysis is positive for UTI. Patient given a dose of Rocephin. Will be placed in observation for further management. Diagnosis Primary Impression: Hypotension Qualified Code: I95.89 - Other specified hypotension Additional Impressions: UTI (urinary tract infection) Qualified Code: N30.00 - Acute cystitis without hematuria OSVALDO (acute kidney injury) Admitting Information Admitting Physician Requests: Observation Evi Aggarwal MD Oct 10, 2016 21:54
[2016-10-10] MEDS ORDERED: ACETAMINOPHEN 325 MG TAB PO PRN (22:00)
[2016-10-10] MEDS ORDERED: BISACODYL 10 MG SUPP PR PRN (22:00)
[2016-10-10] MEDS ORDERED: GLUCAGON 1 MG/ML VIAL OTHER PRN (22:00)
[2016-10-10] MEDS ORDERED: ONDANSETRON HCL 4 MG/2 ML VIAL IVP PRN (22:00)
[2016-10-10] MEDS ORDERED: DEXTROSE 50% IN WATER 50 ML VIAL(D50) IV PUSH PRN (22:00)
[2016-10-10] MEDS ORDERED: SODIUM CHLORIDE 0.9% FLUSH 5 ML FLUSH FLUSH PRN (22:00)
[2016-10-10 22:07] VITALS: BP 158/74; PULSE 62; RESP 20; O2SAT 98
[2016-10-10] MEDS: SODIUM CHLOR 0.9% 1000 ML INJ 1,000 ML IV SCH (22:13)
--- NOTE | 2016-10-10 23:45 | HHI.HP ---
HPI Service [facility] Physician Luis Clark, Admission Diagnosis UTI, hypotension, dehydration, OSVALDO Diagnoses: (1) OSVALDO (acute kidney injury) Diagnosis: Principal (2) UTI (urinary tract infection) Diagnosis: Principal (3) Hypotension Diagnosis: Principal (4) Autoimmune hepatitis Diagnosis: Principal (5) DM (diabetes mellitus) Diagnosis: Principal Travel History International Travel<30 Days: No Contact w/Intl Traveler <30 Da: No Traveled to Known Affected Are: No History of Present Illness This is a 66-year-old female with a PMH of HTN, DM, Autoimmune Hepatitis, Temporal Arteritis on Chronic Steroids and RBBB who was brought to the ER by Daughter secondary to confusion and generalized weakness. Per Daughter, she noted pt confused, checked BS and noted to be elevated to 479. On arrival, BP 82/49, HR 60, O2 sat 96% on RA, Afebrile. CBC at baseline. Platelets 112, previously 86 on 08/09/16. Creatinine 1.74, previously 1.01 on 117. LFTs elevated, similar to previous. Ammonia 27. UA positive for UTI. Beta hydroxy normal. + Orthostatic Vital Signs in ER, s/p IVF w/ repeat BP now 158/74, HR 62. S/p IV Rocephin for UTI. Review of Systems Except as stated in HPI: all other systems reviewed are Neg ROS: 14 point review of systems otherwise negative. Past Family Social History Past Medical History PMH: HTN, DM, Autoimmune Hepatitis, Temporal Arteritis on Chronic Steroids and RBBB Past Surgical History PAST SURGICAL HISTORY: Appendectomy, Hysterectomy, Liver/Breast Biopsy Allergies: Coded Allergies: Morphine (Verified Allergy, Severe, Rash, 10/10/16) Penicillin (Verified Allergy, Severe, Rash, 10/10/16) Tetracycline (Verified Allergy, Severe, Rash, 10/10/16) Clindamycin (Verified Allergy, Unknown, Nausea/Vomiting, 10/10/16) Sulfa (Verified Allergy, Unknown, Rash, 10/10/16) Family History PAST FAMILY HISTORY: Reviewed. No h/o DM or CAD Social History PAST SOCIAL HISTORY: Negative for alcohol, tobacco or drugs. Physical Exam Vital Signs Vital Signs Date Time Temp Pulse Resp B/P Pulse Ox O2 Delivery O2 Flow Rate FiO2 10/10/16 22:07 62 20 158/74 98 Room Air 10/10/16 19:25 56 18 122/66 59 18 101/59 74 22 93/55 10/10/16 17:15 97.7 60 20 82/49 96 Room Air Physical Exam PE: GENERAL: Middle-aged female in no acute distress. HEENT: PERRLA, EOMI. No scleral icterus or conjunctival pallor. No lid lag or facial droop. CARDIOVASCULAR: Regular rate and rhythm. No obvious murmurs to auscultation. No chest tenderness to palpation. RESPIRATORY: No obvious rhonchi or wheezing. Clear to auscultation. Breath sounds equal bilaterally. GASTROINTESTINAL: Abdomen soft, non-tender, nondistended. BS normal. MUSCULOSKELETAL: Extremities without clubbing, cyanosis, or edema. No obvious deformities. NEUROLOGICAL: Awake, alert and oriented x4. No focal neurologic deficits. Moving both upper and lower extremities spontaneously. Laboratory Laboratory Tests Test 10/10/16 10/10/16 17:48 20:08 White Blood Count 4.8 Red Blood Count 3.63 Hemoglobin 12.1 Hematocrit 35.9 Mean Corpuscular Volume 98.9 Mean Corpuscular Hemoglobin 33.4 Mean Corpuscular Hemoglobin 33.8 Concent Red Cell Distribution Width 15.5 Platelet Count 112 Mean Platelet Volume 11.4 Neutrophils (%) (Auto) 82.1 Lymphocytes (%) (Auto) 11.5 Monocytes (%) (Auto) 5.3 Eosinophils (%) (Auto) 0.5 Basophils (%) (Auto) 0.6 Neutrophils # (Auto) 3.9 Lymphocytes # (Auto) 0.6 Monocytes # (Auto) 0.3 Eosinophils # (Auto) 0.0 Basophils # (Auto) 0.0 CBC Comment DIFF FINAL Differential Comment Sodium Level 137 Potassium Level 4.6 Chloride Level 98 Carbon Dioxide Level 28.8 Anion Gap 10 Blood Urea Nitrogen 43 Creatinine 1.74 Estimat Glomerular Filtration 29 Rate Random Glucose 254 Calcium Level 9.8 Total Bilirubin 0.5 Aspartate Amino Transf 54 (AST/SGOT) Alanine Aminotransferase 76 (ALT/SGPT) Alkaline Phosphatase 385 Ammonia 27 Total Protein 8.2 Albumin 3.1 B-Hydroxybutyrate 0.27 Urine Color YELLOW Urine Turbidity HAZY Urine pH 5.0 Urine Specific [place] 1.016 Urine Protein 30 Urine Glucose (UA) TRACE Urine Ketones NEG Urine Occult Blood NEG Urine Nitrite NEG Urine Bilirubin NEG Urine Urobilinogen 2.0 Urine Leukocyte Esterase MOD Urine WBC 8 Urine Squamous Epithelial 1 Cells Urine Bacteria RARE Urine Hyaline Casts 68 Urine Mucus FEW Microscopic Urinalysis Comment CULTURE INDICATED Date/Time Procedure Status Source Growth 10/10/16 20:08 Urine Culture Received Urine Clean Catch Pending Result Diagram: 10/10/16174710/10/161747 Assessment and Plan Problem List: (1) UTI (urinary tract infection) ICD Code: N39.0 Status: Acute (2) Hypotension ICD Code: I95.9 Status: Acute (3) OSVALDO (acute kidney injury) ICD Code: N17.9 Status: Acute (4) Autoimmune hepatitis ICD Code: K75.4 Status: Acute (5) DM (diabetes mellitus) ICD Code: E11.9 Status: Acute Assessment and Plan A/P: 1. UTI: U/a w/ UTI, Afebrile, no leukocytosis. S/p IV Rocephin in ER, Urine Cultures sent, follow up cultures, continue IV Rocephin, IVF for hydration. 2. Hypotension: Orthostatic Hypotension on arrival, likely secondary to dehydration from UTI combined w/ diuretics for autoimmune hepatitis. BP on arrival, 82/49, HR 60. S/p IVF, BP currently 158/74. Hold antihypertensives for now, resume once BP stabilized. 3. OSVALDO: Creatinine 1.74, previously 1.00 on 08/10/16. U/a positive for UTI, continue IV Abx, IVF for hydration, repeat labs in am. 4. Autoimmune Hepatitis: LFTs elevated, at baseline in comparison to previous labs. Ammonia normal. Resume home Lactulose, Rifaximin and Mercaptopurine. Hold Lasix for now in light of hypotension. 5. DM: Sliding scale w/ Accu-Cheks. Check Hgb A1c. 6. DVT Prophylaxis: SCD/Teds. 7. Social work for d/c planning as needed. 8. Case discussed w/ ER physician at length. Iesha Brock MD Oct 10, 2016 23:45
[2016-10-11] VITALS (10 sets, daily range): BP systolic 122–193; BP diastolic 62–90; PULSE 58–67; RESP 16–19; TEMP 97.7–98.1; O2SAT 95–97
[2016-10-11] MEDS ORDERED: METOPROLOL TARTRATE 25 MG TAB PO ONE (00:15)
[2016-10-11] MEDS ORDERED: cloNIDine HCL 0.1 MG TAB PO ONE (04:00)
[2016-10-11] MEDS: LEVOTHYROXINE SODIUM 75 MCG TAB PO SCH (05:18)
[2016-10-11] MEDS: INSULIN ASPART SUPPLEMENTAL SCALE SQ SCH ×4 (06:41→21:45)
[2016-10-11 07:19] LABS: AUTOMATED NEUTROPHIL # 2.4 TH/MM3 (1.8-7.7); BASOPHIL % 0.6 % (0.0-2.0); EOSINOPHIL % 0.9 % (0.0-4.0); HEMATOCRIT 32.4 % (35.0-46.0); LYMPH % 22.5 % (9.0-44.0); LYMPHOCYTE # 0.8 TH/MM3 (1.0-4.8); MEAN CELL VOLUME 99.4 FL (80.0-100.0); MEAN CORPUSCULAR HEMOGLOBIN 34.1 PG (27.0-34.0); MEAN CORPUSCULAR HGB CONC 34.3 % (32.0-36.0); MONO % 7.5 % (0.0-8.0); NEUT % 68.5 % (16.0-70.0); PLATELET COUNT 81 TH/MM3 (150-450); RED BLOOD COUNT 3.26 MIL/MM3 (4.00-5.30); RED CELL DISTRIBUTION WIDTH 15.8 % (11.6-17.2); WHITE BLOOD COUNT 3.6 TH/MM3 (4.0-11.0)
[2016-10-11 07:25] LABS: HEMO FLAGS AUTO DIFF
[2016-10-11 07:41] LABS: ALKALINE PHOSPHATASE 331 U/L (45-117); ALT (GPT) 62 U/L (10-53); ANION GAP 7 MEQ/L (5-15); AST (GOT) 45 U/L (15-37); BICARBONATE 27.5 MEQ/L (21.0-32.0); BLOOD UREA NITROGEN 39 MG/DL (7-18); CHLORIDE 100 MEQ/L (98-107); GLOMERULAR FILTRATION RATE 37 ML/MIN (>89); POTASSIUM 5.6 MEQ/L (3.5-5.1); SODIUM (NA) 134 MEQ/L (136-145); TOTAL BILIRUBIN ADULT 0.5 MG/DL (0.2-1.0)
[2016-10-11] MEDS: METOPROLOL TARTRATE 25 MG TAB PO SCH ×2 (07:46→21:44)
--- NOTE | 2016-10-11 08:33 | HHI.PR ---
Subjective Remarks Follow-up for confusion, weakness, hyperglycemia, UTI, OSVALDO. Patient reports feeling much better today. Denies any confusion or lightheadedness. She does have a slight headache which she believes is related to her elevated blood pressure. Denies any fevers or chills. Denies any dysuria, suprapubic pain, or increased urinary urgency/frequency. She does report some increased urinary frequency prior to coming to the hospital. Blood glucose still elevated this morning, currently >400. Patient reports taking Levemir 25u in the morning and 10u at bedtime. If the blood sugars and blood pressure are better controlled, the patient would like to go home this afternoon. Objective Vitals Vital Signs Date Time Temp Pulse Resp B/P Pulse Ox O2 Delivery O2 Flow Rate FiO2 10/11/16 07:36 98.0 65 18 187/82 95 10/11/16 05:20 67 10/11/16 02:49 97.7 60 18 187/90 97 10/11/16 01:13 61 16 179/82 97 Room Air 10/11/16 00:42 58 16 193/86 96 Room Air 10/10/16 22:07 62 20 158/74 98 Room Air 10/10/16 19:25 56 18 122/66 59 18 101/59 74 22 93/55 10/10/16 17:15 97.7 60 20 82/49 96 Room Air Result Diagram: 10/11/16 0608 10/11/16 0608 Objective Remarks GENERAL: Well-nourished, well-developed pleasant elderly female patient in [facility]. SKIN: Warm and dry. No rash. HEENT: Normocephalic. Atraumatic. Pupils equal and round. No scleral icterus. No injection or drainage. Mucous membranes pink and moist. NECK: Supple. Trachea midline. CARDIOVASCULAR: Regular rate and rhythm. S1, S2 noted. No murmur appreciated. RESPIRATORY: No accessory muscle use. Clear to auscultation. Breath sounds equal bilaterally. GASTROINTESTINAL: Abdomen soft, non-tender, nondistended. Normoactive bowel sounds x4. MUSCULOSKELETAL: No obvious deformities. Extremities without clubbing, cyanosis , or edema. NEUROLOGICAL: Awake and alert. No obvious cranial nerve deficits. Motor grossly within normal limits. 5/5 muscle strength in bilateral upper and lower extremities. Normal speech. PSYCHIATRIC: Appropriate mood and affect; insight and judgment normal. Medications and IVs Current Medications Medications (Trade) Dose Ordered Sig/Miranda Route Start Time Stop Time Status Last Admin (D50w (Vial) Inj) 25 ml UNSCH PRN IV PUSH 10/10/16 22:00 Glucagon 1 mg 1 mg UNSCH PRN OTHER 10/10/16 22:00 Ceftriaxone Sodium 1000 mg/ Sodium Chloride 100 ml @ 200 mls/hr Q24H IV 10/11/16 22:00 (NS 1000 ml Inj) 1,000 ml @ 100 mls/hr Q10H IV 10/10/16 22:00 10/10/16 22:13 (NS Flush) 2 ml UNSCH PRN FLUSH 10/10/16 22:00 (NS Flush) 2 ml BID FLUSH 10/11/16 09:00 (Zofran Inj) 4 mg Q6H PRN IVP 10/10/16 22:00 10/10/16 23:37 (Dulcolax Supp) 10 mg DAILY PRN ME 10/10/16 22:00 (Tylenol) 650 mg Q6H PRN PO 10/10/16 22:00 (Roxicodone) 5 mg Q4H PRN PO 10/10/16 22:00 10/10/16 23:34 (Roxicodone) 10 mg Q4H PRN PO 10/10/16 22:00 (Vitamin C) 500 mg DAILY PO 10/11/16 09:00 (Vitamin D3) 1,000 units DAILY PO 10/11/16 09:00 (Synthroid) 75 mcg DAILY@06 PO 10/11/16 06:00 10/11/16 05:18 (Purinethol) 50 mg DAILY PO 10/11/16 09:00 (Deltasone) 10 mg BID PO 10/11/16 09:00 (Xifaxan) 550 mg Q12HR PO 10/11/16 09:00 (Zoloft) 50 mg DAILY PO 10/11/16 09:00 (Lactulose Liq) 20 ml BID PO 10/11/16 09:00 (Lopressor) 25 mg Q12HR PO 10/11/16 09:00 10/11/16 07:46 (Procardia Xl) 30 mg DAILY PO 10/11/16 09:00 (Levemir Inj) 25 units DAILY SQ 10/11/16 09:00 UNV (Levemir Inj) 10 units HS SQ 10/11/16 21:00 UNV A/P Problem List: (1) UTI (urinary tract infection) ICD Code: N39.0 Status: Acute (2) Hypotension ICD Code: I95.9 Status: Acute (3) OSVALDO (acute kidney injury) ICD Code: N17.9 Status: Acute (4) Autoimmune hepatitis ICD Code: K75.4 Status: Acute (5) DM (diabetes mellitus) ICD Code: E11.9 Status: Acute Assessment and Plan 66-year-old female with a PMH of HTN, DM, Autoimmune Hepatitis, Temporal Arteritis on Chronic Steroids and RBBB who was brought to the ER by Daughter secondary to confusion and generalized weakness with hyperglycemia BG 479. UTI: U/a w/ UTI, Afebrile, no leukocytosis but with increased urinary frequency and confusion. Continue IV Rocephin. IVF for hydration. Urine Culture pending. Hypotension, with hx of Hypertension: Orthostatic Hypotension on arrival, likely secondary to dehydration from UTI, polyuria from hyperglycemia, and combined w/ diuretics for autoimmune hepatitis. BP on arrival, 82/49, HR 60. On IVF. SBP now in the 180s. Continued patient's home medications including Metoprolol, Nifedipine, and Clonidine. Recheck orthostatics. OSVALDO: Creatinine 1.74, previously 1.00 on 08/10/16. U/a positive for UTI, continue IV Abx. IVF for hydration, repeat labs today show some improvement, Cr 1.42. Autoimmune Hepatitis: LFTs elevated, at baseline in comparison to previous labs. Ammonia normal. Resume home Lactulose, Rifaximin and Mercaptopurine. Hold Lasix for now in light of hypotension/OSVALDO. Hyperglycemia with DM: Sliding scale w/ Accu-Cheks. Check Hgb A1c. Restart patient's Levemir 25u in am, 10u in pm. Hyperkalemia: K 5.6 this morning, previously 4.6. On IVF. Repeat BMP today. DVT Prophylaxis: SCD/Teds. Discussed with Dr. Reeder. Discharge Planning Possible discharge later this afternoon if blood glucose and blood pressure improves. Lela Raymond PA-C Oct 11, 2016 8:33 am
[2016-10-11] MEDS: RIFAXIMIN 550 MG TAB PO SCH ×2 (09:00→21:44)
[2016-10-11] MEDS ORDERED: INSULIN DETEMIR 100 UNITS/ML VIAL SQ SCH ×2 (09:00→21:00)
[2016-10-11 09:16] LABS: PLATELET ESTIMATE SMEAR LOW (NORMAL); PLATELET MORPHOLOGY NORMAL (NORMAL); SCAN/DIFF AUTO DIFF CONFIRMED
[2016-10-11] MEDS: INSULIN DETEMIR 100 UNITS/ML VIAL SQ SCH (09:42)
[2016-10-11] MEDS: SERTRALINE HCL 50 MG TAB PO SCH (09:43)
[2016-10-11] MEDS: SODIUM CHLORIDE 0.9% FLUSH 5 ML FLUSH FLUSH SCH ×2 (09:43→21:00)
[2016-10-11] MEDS: NIFEdipine 30 MG SUSTAINED RELEASE TAB PO SCH (09:43)
[2016-10-11] MEDS: CHOLECALCIFEROL (VIT D3) 1000 UNIT TAB PO SCH (09:43)
[2016-10-11] MEDS: ASCORBIC ACID 500 MG TAB PO SCH (09:43)
[2016-10-11] MEDS: cloNIDine HCL 0.1 MG TAB PO SCH ×3 (09:43→18:19)
[2016-10-11] MEDS: LACTULOSE SYRUP 20 GM/30 ML CUP PO SCH ×2 (09:43→21:44)
[2016-10-11] MEDS: predniSONE 10 MG TAB PO SCH ×2 (09:43→21:00)
[2016-10-11] MEDS: MERCAPTOPURINE 50 MG TAB PO SCH (11:34)
[2016-10-11] MEDS: SODIUM CHLOR 0.9% 1000 ML INJ 1,000 ML IV SCH ×2 (11:35→18:00)
[2016-10-11] MEDS ORDERED: DIFL0.0512 RIGHT EYE (11:59)
[2016-10-11] MEDS ORDERED: OCUF0.3D RIGHT EYE (11:59)
[2016-10-11 12:45] LABS: ANION GAP 7 MEQ/L (5-15); BICARBONATE 28.2 MEQ/L (21.0-32.0); BLOOD UREA NITROGEN 43 MG/DL (7-18); CHLORIDE 99 MEQ/L (98-107); GLOMERULAR FILTRATION RATE 36 ML/MIN (>89); POTASSIUM 5.2 MEQ/L (3.5-5.1); SODIUM (NA) 134 MEQ/L (136-145)
[2016-10-11] MEDS ORDERED: INSULIN HUMAN REGULAR 1,000 UNITS/10 ML VIAL IV PUSH ONE (14:00)
[2016-10-11 15:54] LABS: HEMOGLOBIN A1a 1.4 %; HEMOGLOBIN A1b 1.2 %; HEMOGLOBIN Ao 73.9 %; HEMOGLOBIN F 2.2 %; HEMOGLOBIN LA1C 4.7 %; HEMOGLOBIN P3 7.8 %
--- NOTE | 2016-10-11 19:06 | EKG ---
Date Performed: 10/10/2016 Time Performed: 19:56:47 PTAGE: 66 years EKG: SINUS BRADYCARDIA CONSIDER INFERIOR MYOCARDIAL INFARCTION-age indeterminate. MODERATE T-WAV E ABNORMALITY, CONSIDER LATERAL ISCHEMIA ABNORMAL ECG PREVIOUS TRACING : 08/08/2016 10.52 DOCTOR: Jose Ramon Fitzgerald Interpretating Date/Time 10/11/2016 19:06:12
[2016-10-11] MEDS ORDERED: cefTRIAXone INJ 1,000 MG in SODIUM CHLORIDE 0.9% INJ 100 ML IV SCH (22:00)
[2016-10-12] VITALS (7 sets, daily range): BP systolic 99–195; BP diastolic 55–86; PULSE 57–65; RESP 18–19; TEMP 96.8–98.2; O2SAT 94–98
[2016-10-12] MEDS ORDERED: PRED10 PO (01:24)
[2016-10-12] MEDS: SODIUM CHLOR 0.9% 1000 ML INJ 1,000 ML IV SCH (04:17)
[2016-10-12] MEDS: LEVOTHYROXINE SODIUM 75 MCG TAB PO SCH (06:07)
[2016-10-12] MEDS: INSULIN ASPART SUPPLEMENTAL SCALE SQ SCH ×4 (06:25→20:59)
--- NOTE | 2016-10-12 07:55 | HHI.PR ---
Subjective Remarks Follow-up for weakness. The patient states she's feeling somewhat better today , but not quite 100%. She states she still feels weak in her legs. She normally ambulates using a walker. She lives at home with her daughter. She states she has a history of labile blood sugar and blood pressure. She says she normally has intermittent episodes of vomiting baseline, but did have 2 episodes last week prior to admission. No nausea at this time and wants to eat. Objective Vitals Vital Signs Date Time Temp Pulse Resp B/P Pulse Ox O2 Delivery O2 Flow Rate FiO2 10/12/16 03:35 98.1 62 19 120/62 98 10/12/16 01:35 57 10/12/16 00:45 98.2 65 19 120/65 94 10/11/16 19:51 98.1 65 19 122/69 95 10/11/16 15:23 65 128/62 10/11/16 11:51 64 184/78 10/11/16 09:24 60 136/64 10/11/16 08:19 60 Result Diagram: 10/11/16 0608 10/11/16 1140 Objective Remarks GENERAL: Well-developed well-nourished. In no acute distress. SKIN: Warm and dry. No lesions noted. HEENT: Normocephalic. Pupils equal and round. Mucous membranes pink and moist. CARDIOVASCULAR: Regular rate and rhythm. No murmur appreciated. RESPIRATORY: No accessory muscle use. Clear to auscultation. Breath sounds equal bilaterally. GASTROINTESTINAL: Abdomen soft, non-tender, nondistended. Bowel sounds x4. MUSCULOSKELETAL: No obvious deformities. No clubbing or cyanosis. No edema. NEUROLOGICAL: Awake and alert. No focal neurological deficits. Moves upper and lower extremities spontaneously. Normal speech. Strength 5/5. PSYCHIATRIC: Appropriate mood and affect; insight and judgment normal. A/P Problem List: (1) UTI (urinary tract infection) ICD Code: N39.0 Status: Acute (2) Hypotension ICD Code: I95.9 Status: Acute (3) OSVALDO (acute kidney injury) ICD Code: N17.9 Status: Acute (4) Autoimmune hepatitis ICD Code: K75.4 Status: Chronic (5) DM (diabetes mellitus) ICD Code: E11.9 Status: Chronic Assessment and Plan 66-year-old female with a PMH of HTN, DM, Autoimmune Hepatitis, Temporal Arteritis on Chronic Steroids and RBBB who was brought to the ER by Daughter secondary to confusion and generalized weakness with hyperglycemia BG 479. Generalized weakness: Probably from medical etiologies as below. PT eval. UTI: U/a w/ possible UTI, Afebrile, no leukocytosis but with increased urinary frequency and confusion. Continue empiric IV Rocephin. Follow up urine culture. Hypotension, with hx of Hypertension: Orthostatic Hypotension on arrival, likely secondary to dehydration. BP on arrival, 82/49, HR 60. Holding Lasix. On IVF. Normotensive overnight. Continued patient's home medications including Metoprolol, Nifedipine, and Clonidine. Recheck orthostatics. OSVALDO: Creatinine 1.74, previously 1.00 on 08/10/16. Creatinine improving with IVF. Follow-up BMP. Autoimmune Hepatitis: LFTs elevated, at baseline in comparison to previous labs. Ammonia normal. Continue home Lactulose, Rifaximin and Mercaptopurine. Hold Lasix for now in light of hypotension/OSVALDO. Hyperglycemia with DM: Hemoglobin A1c 9.8. Sliding scale w/ Accu-Cheks. Restarted patient's Levemir 25u in am, 10u in pm. Monitor and adjust regimen as needed. Hyperkalemia: K 5.6/5.2. Secondary dehydration and home potassium supplementation. Potassium supplementation while holding Lasix. IVF. Repeat BMP. DVT Prophylaxis: SCD/Teds. Discharge Planning Follow-up labs. Monitor blood pressure and blood glucose. Follow-up PT recommendations. Problem Qualifiers (1) DM (diabetes mellitus): Qualified Code: E11.65 - Type 2 diabetes mellitus with hyperglycemia, with long -term current use of insulin Pineda Quinonez Oct 12, 2016 07:55
[2016-10-12] MEDS: METOPROLOL TARTRATE 25 MG TAB PO SCH ×2 (08:52→20:51)
[2016-10-12] MEDS: CHOLECALCIFEROL (VIT D3) 1000 UNIT TAB PO SCH (08:52)
[2016-10-12] MEDS: SERTRALINE HCL 50 MG TAB PO SCH (08:52)
[2016-10-12] MEDS: predniSONE 10 MG TAB PO SCH ×2 (08:52→20:52)
[2016-10-12] MEDS: INSULIN DETEMIR 100 UNITS/ML VIAL SQ SCH (08:52)
[2016-10-12] MEDS: ASCORBIC ACID 500 MG TAB PO SCH (08:52)
[2016-10-12] MEDS: LACTULOSE SYRUP 20 GM/30 ML CUP PO SCH ×2 (08:52→20:52)
[2016-10-12] MEDS: NIFEdipine 30 MG SUSTAINED RELEASE TAB PO SCH (08:52)
[2016-10-12] MEDS: cloNIDine HCL 0.1 MG TAB PO SCH ×3 (08:52→17:57)
[2016-10-12] MEDS: RIFAXIMIN 550 MG TAB PO SCH ×2 (08:52→20:52)
[2016-10-12] MEDS: SODIUM CHLORIDE 0.9% FLUSH 5 ML FLUSH FLUSH SCH ×2 (08:53→20:52)
[2016-10-12] MEDS: MERCAPTOPURINE 50 MG TAB PO SCH (08:54)
[2016-10-12 12:28] LABS: AUTOMATED NEUTROPHIL # 2.9 TH/MM3 (1.8-7.7); BASOPHIL % 0.6 % (0.0-2.0); EOSINOPHIL % 1.3 % (0.0-4.0); HEMATOCRIT 31.3 % (35.0-46.0); LYMPH % 12.2 % (9.0-44.0); LYMPHOCYTE # 0.4 TH/MM3 (1.0-4.8); MEAN CELL VOLUME 98.8 FL (80.0-100.0); MEAN CORPUSCULAR HEMOGLOBIN 33.2 PG (27.0-34.0); MEAN CORPUSCULAR HGB CONC 33.6 % (32.0-36.0); MONO % 6.5 % (0.0-8.0); NEUT % 79.4 % (16.0-70.0); PLATELET COUNT 87 TH/MM3 (150-450); RED BLOOD COUNT 3.17 MIL/MM3 (4.00-5.30); RED CELL DISTRIBUTION WIDTH 15.3 % (11.6-17.2); WHITE BLOOD COUNT 3.7 TH/MM3 (4.0-11.0)
[2016-10-12 12:29] LABS: HEMO FLAGS AUTO DIFF
[2016-10-12 13:02] LABS: BICARBONATE 26.9 MEQ/L (21.0-32.0); INDIRECT BILIRUBIN 0.2 MG/DL (0.0-0.8); MAGNESIUM 1.8 MG/DL (1.5-2.5); POTASSIUM 4.7 MEQ/L (3.5-5.1); TOTAL BILIRUBIN ADULT 0.5 MG/DL (0.2-1.0)
[2016-10-12 13:29] LABS: PLATELET ESTIMATE SMEAR LOW (NORMAL); PLATELET MORPHOLOGY NORMAL (NORMAL); SCAN/DIFF AUTO DIFF CONFIRMED
[2016-10-12] MEDS ORDERED: INSULIN DETEMIR 100 UNITS/ML VIAL SQ SCH (21:00)
[2016-10-13 00:11] VITALS: BP_SYST 107; BP_SYST 127; BP_SYST 150; BP_DIAS 56; BP_DIAS 58; BP_DIAS 71; PULSE 64; RESP 19; TEMP 98.2; O2SAT 97
[2016-10-13 01:25] VITALS: PULSE 62
[2016-10-13 03:31] VITALS: BP 149/76; PULSE 61; RESP 18; TEMP 98; O2SAT 97
[2016-10-13] MEDS: INSULIN ASPART SUPPLEMENTAL SCALE SQ SCH (05:49)
[2016-10-13] MEDS: LEVOTHYROXINE SODIUM 75 MCG TAB PO SCH (05:50)
[2016-10-13 08:00] VITALS: PULSE 75
[2016-10-13] MEDS ORDERED: LEVEMIR SQ ×2 (08:02)
--- NOTE | 2016-10-13 08:05 | HHI.FF ---
Face to Face Verification Diagnosis: (1) Hyperglycemia (2) Brittle diabetes (3) OSVALDO (acute kidney injury) (4) Autoimmune hepatitis (5) Hypotension (6) Weakness generalized Physical Therapy Order: Evaluate and Treat, Improve ambulation, Strength and gait training Home Health Nursing Order: Medical education Signs/symptoms of disease process Diabetic education Medication education-adverse effect Nursing assessment with vital signs I have seen patient Shaista Mooney on 10/13/16. My clinical findings support the need for the requested home health care services because: Ltd mobility - disease progression Deconditioned w/ increased weakness Injectable med education/admin I certify that my clinical findings support that this patient is homebound because: Unsteady gait/balance Pineda Quinonez Oct 13, 2016 08:05
[2016-10-13 08:09] VITALS: BP_SYST 107; BP_SYST 140; BP_SYST 165; BP_DIAS 59; BP_DIAS 75; BP_DIAS 79; PULSE 69; RESP 19; TEMP 98.2; O2SAT 96
--- NOTE | 2016-10-13 08:12 | HHI.DS ---
Discharge Summary Admission Date Oct 10, 2016 at 21:51 Discharge Date: Oct 13, 2016 Admitting Diagnosis UTI, hypotension, dehydration, OSVALDO (1) Hypotension ICD Code: I95.9 Diagnosis: Principal (2) OSVALDO (acute kidney injury) ICD Code: N17.9 Diagnosis: Principal (3) Autoimmune hepatitis ICD Code: K75.4 Diagnosis: Secondary (4) DM (diabetes mellitus) ICD Code: E11.9 Diagnosis: Secondary (5) Weakness generalized ICD Code: R53.1 Diagnosis: Principal Procedures none Brief History - From Admission This is a 66-year-old female with a PMH of HTN, DM, Autoimmune Hepatitis, Temporal Arteritis on Chronic Steroids and RBBB who was brought to the ER by Daughter secondary to confusion and generalized weakness. Per Daughter, she noted pt confused, checked BS and noted to be elevated to 479. On arrival, BP 82/49, HR 60, O2 sat 96% on RA, Afebrile. CBC at baseline. Platelets 112, previously 86 on 08/09/16. Creatinine 1.74, previously 1.01 on 117. LFTs elevated, similar to previous. Ammonia 27. UA positive for UTI. Beta hydroxy normal. + Orthostatic Vital Signs in ER, s/p IVF w/ repeat BP now 158/74, HR 62. S/p IV Rocephin for UTI. CBC/BMP: 10/12/16 1200 10/12/16 1200 Significant Findings Laboratory Tests Test 10/10/16 10/10/16 10/11/16 10/11/16 17:48 20:08 06:08 11:40 Red Blood Count 3.63 MIL/MM3 3.26 MIL/MM3 (4.00-5.30) (4.00-5.30) Platelet Count 112 TH/MM3 81 TH/MM3 (150-450) (150-450) Mean Platelet Volume 11.4 FL (7.0-11.0) Neutrophils (%) (Auto) 82.1 % (16.0-70.0) Lymphocytes # (Auto) 0.6 TH/MM3 0.8 TH/MM3 (1.0-4.8) (1.0-4.8) Blood Urea Nitrogen 43 MG/DL (7-18) 39 MG/DL (7-18) 43 MG/DL (7-18) Creatinine 1.74 MG/DL 1.42 MG/DL 1.47 MG/DL (0.50-1.00) (0.50-1.00) (0.50-1.00) Estimat Glomerular Filtration 29 ML/MIN (>89) 37 ML/MIN (>89) 36 ML/MIN (>89) Rate Random Glucose 254 MG/DL 466 MG/DL 511 MG/DL (74-106) (74-106) (74-106) Aspartate Amino Transf 54 U/L (15-37) 45 U/L (15-37) (AST/SGOT) Alanine Aminotransferase 76 U/L (10-53) 62 U/L (10-53) (ALT/SGPT) Alkaline Phosphatase 385 U/L 331 U/L (45-117) (45-117) Albumin 3.1 GM/DL 2.8 GM/DL (3.4-5.0) (3.4-5.0) Urine Turbidity HAZY (CLEAR) Urine Protein 30 mg/dL (NEG-TRACE) Urine Leukocyte Esterase MOD (NEG) Urine WBC 8 /hpf (0-5) Urine Bacteria RARE /hpf (NONE) Urine Mucus FEW /lpf (OCC) White Blood Count 3.6 TH/MM3 (4.0-11.0) Hemoglobin 11.1 GM/DL (11.6-15.3) Hematocrit 32.4 % (35.0-46.0) Mean Corpuscular Hemoglobin 34.1 PG (27.0-34.0) Platelet Estimate LOW (NORMAL) Sodium Level 134 MEQ/L 134 MEQ/L (136-145) (136-145) Potassium Level 5.6 MEQ/L 5.2 MEQ/L (3.5-5.1) (3.5-5.1) Hemoglobin A1c 9.8 % (4.3-6.0) Test 10/12/16 12:00 White Blood Count 3.7 TH/MM3 (4.0-11.0) Red Blood Count 3.17 MIL/MM3 (4.00-5.30) Hemoglobin 10.5 GM/DL (11.6-15.3) Hematocrit 31.3 % (35.0-46.0) Platelet Count 87 TH/MM3 (150-450) Neutrophils (%) (Auto) 79.4 % (16.0-70.0) Lymphocytes # (Auto) 0.4 TH/MM3 (1.0-4.8) Platelet Estimate LOW (NORMAL) Blood Urea Nitrogen 32 MG/DL (7-18) Creatinine 1.05 MG/DL (0.50-1.00) Estimat Glomerular Filtration 53 ML/MIN (>89) Rate Random Glucose 382 MG/DL (74-106) Direct Bilirubin 0.3 MG/DL (0.0-0.2) Aspartate Amino Transf 75 U/L (15-37) (AST/SGOT) Alanine Aminotransferase 82 U/L (10-53) (ALT/SGPT) Alkaline Phosphatase 340 U/L (45-117) Albumin 2.8 GM/DL (3.4-5.0) PE at Discharge GENERAL: Well-developed well-nourished. In no acute distress. SKIN: Warm and dry. No lesions noted. HEENT: Normocephalic. Pupils equal and round. Mucous membranes pink and moist. CARDIOVASCULAR: Regular rate and rhythm. No murmur appreciated. RESPIRATORY: No accessory muscle use. Clear to auscultation. Breath sounds equal bilaterally. GASTROINTESTINAL: Abdomen soft, non-tender, nondistended. Bowel sounds x4. MUSCULOSKELETAL: No obvious deformities. No clubbing or cyanosis. No edema. NEUROLOGICAL: Awake and alert. No focal neurological deficits. Moves upper and lower extremities spontaneously. Normal speech. Strength 5/5. PSYCHIATRIC: Appropriate mood and affect; insight and judgment normal. Pt update on day of discharge The patient is doing well this time. She ambulated with PT yesterday around the unit, but states she felt a little weak. She is agreeable for C with PT. She denies any lightheadedness or dizziness with standing, but does feel a bit lightheaded and dizzy whenever she lays down. She denies any headache. Discussed with Dr. Reeder RN, and case management. Hospital Course 66-year-old female with a PMH of HTN, DM, Autoimmune Hepatitis, Temporal Arteritis on Chronic Steroids and RBBB who was brought to the ER by Daughter secondary to confusion and generalized weakness with hyperglycemia BG 479. Generalized weakness: Secondary to medical etiologies as below. PT recommends HHC with PT, case management to arrange UTI: U/a w/ evidence of possible UTI, received empiric IV Rocephin, urine culture with no specific growth, no further need for antibiotics. Hypertension with orthostasis: Patient was hypotensive on arrival, likely secondary to dehydration. BP on arrival, 82/49, HR 60. DC Lasix. Given IVF. BP normalized after Lasix given and stopped and patient restarted on her home medications. The patient remained orthostatic, although questionably symptomatic from it. Educated on sitting and standing slowly. HAZEL polo. OSVALDO: Creatinine 1.74, previously 1.00 on 08/10/16. Given IVF and creatinine improved to 1.05. Autoimmune Hepatitis: LFTs elevated, at baseline in comparison to previous labs. Ammonia normal. Continue home Lactulose, Rifaximin and Mercaptopurine. Hold Lasix for now in light of hypotension/OSVALDO. Hyperglycemia with DM: Blood glucoses are labile. Hemoglobin A1c 9.8. Sliding scale w/ Accu-Cheks. Continue patient's Levemir 25u in am. Increased p.m. Levemir from 10u to 15u with good results. Follow-up with PCP for further monitoring and adjustment of regimen as needed. Hyperkalemia: K 5.6/5.2. Secondary dehydration and home potassium supplementation. Discontinue potassium supplementation as Lasix discontinued. Given IVF. Repeat BMP showed potassium 4.7. Pt Condition on Discharge: Stable Discharge Disposition: Disch w/ Home Health Serv Discharge Time: > 30 minutes Discharge Instructions DIET: Follow Instructions for: Diabetic Diet Activities you can perform: Regular-No Restrictions Follow up Referrals: PCP Follow-up - 2-3 Days with Luis Clark Do New Medications: Insulin Detemir Inj (Levemir Inj) 1,000 unit/ 10 ML Vial 25 UNITS SQ DAILY Blood Sugar Management Days 30 INJECTION Insulin Detemir Inj (Levemir Inj) 1,000 unit/ 10 ML Vial 15 UNITS SQ HS Blood Sugar Management Days 30 INJECTION Continued Medications: Ascorbic Acid (Vitamin C) 500 Mg Tab 500 MG PO DAILY Nutritional Supplement Ref 0 TAB Cholecalciferol (Vitamin D3) 1,000 Unit Tab 1000 UNITS PO DAILY Nutritional Supplement #1 Ref 0 BOTTLE Clonidine (Clonidine) 0.1 Mg Tab 0.1 MG PO TID Blood Pressure Management #60 Ref 0 TAB Difluprednate Opth (Durezol Opth) 0.05% Emul 1 RIGHT EYE Q12HR Ezetimibe (Zetia) 10 Mg Tab 10 MG PO DAILY #30 Ref 0 TAB Insulin Lispro (Human) Inj (Humalog Inj) 1,000 Unit/10 Ml Vial 6-16 UNITS SQ ACHS SLIDING SCALE #1 Ref 0 VIAL Lactulose (Encephalopathy) Liq (Enulose Liq) 10 Gm/15 Ml Soln 20 GM PO BID Levothyroxine (Levothyroxine) 75 Mcg Tab 75 MCG PO DAILY Thyroid #30 Ref 0 TAB Meclizine (Meclizine) 25 Mg Tab 25 MG PO TID PRN VERTIGO #20 Ref 0 TAB Mercaptopurine (Mercaptopurine) 50 Mg Tab 50 MG PO DAILY Chemotherapy Management Ref 0 TAB Metoprolol Tartrate (Metoprolol Tartrate) 25 Mg Tab 25 MG PO Q12HR Blood Pressure Management #60 TAB Nifedipine ER 24 HR (Nifedipine ER 24 HR) 30 Mg Tab 30 MG PO DAILY blood pressure Days 30 TAB Ofloxacin Opth Drops (Ocuflox Opth Drops) 0.3 % Drops 1 DROP RIGHT EYE Q6HR Infection #1 Ref 0 BOTTLE Pantoprazole (Pantoprazole) 40 Mg Tab 40 MG PO DAILY gastric protection #30 TAB Prednisone (Prednisone) 10 Mg Tab 10 MG PO DAILY Ref 0 TAB Sertraline (Zoloft) 50 Mg Tab 50 MG PO DAILY #90 Ref 1 TAB Discontinued Medications: Furosemide (Lasix) 20 Mg Tab 20 MG PO DAILY #30 Ref 0 TAB Insulin Detemir Inj (Levemir Inj) 1,000 unit/ 10 ML Vial 25 UNITS SQ BID Do not mix with any other Insulin. Blood Sugar Management #100 Ref 0 VIAL Potassium Chloride ER (Klor-Con 10) 10 Meq Tab 10 MEQ PO DAILY Electrolyte Replacement #30 Ref 0 TAB Pineda Quinonez Oct 13, 2016 08:12
[2016-10-13] MEDS: RIFAXIMIN 550 MG TAB PO SCH (08:29)
[2016-10-13] MEDS: ASCORBIC ACID 500 MG TAB PO SCH (08:29)
[2016-10-13] MEDS: CHOLECALCIFEROL (VIT D3) 1000 UNIT TAB PO SCH (08:29)
[2016-10-13] MEDS: LACTULOSE SYRUP 20 GM/30 ML CUP PO SCH (08:29)
[2016-10-13] MEDS: SERTRALINE HCL 50 MG TAB PO SCH (08:29)
[2016-10-13] MEDS: INSULIN DETEMIR 100 UNITS/ML VIAL SQ SCH (08:29)
[2016-10-13] MEDS: METOPROLOL TARTRATE 25 MG TAB PO SCH (08:30)
[2016-10-13] MEDS: cloNIDine HCL 0.1 MG TAB PO SCH (08:30)
[2016-10-13] MEDS: predniSONE 10 MG TAB PO SCH (08:30)
[2016-10-13] MEDS: NIFEdipine 30 MG SUSTAINED RELEASE TAB PO SCH (08:30)
[2016-10-13] MEDS: SODIUM CHLORIDE 0.9% FLUSH 5 ML FLUSH FLUSH SCH (08:30)
[2016-10-13] MEDS: MERCAPTOPURINE 50 MG TAB PO SCH (08:34)
== END 2016-10-13 11:05 | disposition home or self-care (01) ==
LOC: NEPC 17:07 → NEDA 21:51 → NEPGCP 10-11 01:56 → NEPFCDU 10-12 07:24
PROVIDERS: ADMIT Hospitalist; ATTEND Hospitalist
DX: I95.1 Orthostatic hypotension (principal); E11.65 Type 2 diabetes mellitus with hyperglycemia; M31.6 Other giant cell arteritis; N30.00 Acute cystitis without hematuria; I10 Essential (primary) hypertension; N17.9 Acute kidney failure, unspecified; K75.4 Autoimmune hepatitis; I45.10 Unspecified right bundle-branch block; R41.0 Disorientation, unspecified; E87.5 Hyperkalemia; Z79.52 Long term (current) use of systemic steroids; Z79.4 Long term (current) use of insulin
CPT/HCPCS: 80048; 80053; 80076; 81001; 82010; 82140; 82948; 83036; 83735; 85025; 87086; 93005; 96361; 96374; 97162; 99285; G0378; G8987; G8988; J0696; J1815; J2405; J7030; J7512

== ENCOUNTER 2017-01-22 14:45 | Emergency (ER) | payer MEDICAID, OTHER ==
[~2017-01-22] VITALS: Ht 157.5 cm; Wt 58.0 kg
[~2017-01-22 14:45] MED LIST changes: +DIFL0.0512 RIGHT EYE; -FURO1TAB62 PO; +OCUF0.3D RIGHT EYE; -POTA-243 PO; -XIFA550T4 PO
[2017-01-22 15:25] VITALS: BP 130/72; PULSE 90; RESP 16; TEMP 97.4; O2SAT 99
[2017-01-22] MEDS ORDERED: SODIUM CHLORIDE 0.9% FLUSH 10 ML FLUSH IV FLUSH PRN (15:30)
[2017-01-22 15:33] VITALS: O2SAT 99
[2017-01-22 16:24] LABS: AUTOMATED NEUTROPHIL # 2.6 TH/MM3 (1.8-7.7); BASOPHIL % 0.8 % (0.0-2.0); HEMATOCRIT 33.8 % (35.0-46.0); LYMPH % 16.2 % (9.0-44.0); LYMPHOCYTE # 0.6 TH/MM3 (1.0-4.8); MEAN CELL VOLUME 100.1 FL (80.0-100.0); MEAN CORPUSCULAR HEMOGLOBIN 33.5 PG (27.0-34.0); MEAN CORPUSCULAR HGB CONC 33.5 % (32.0-36.0); MONO % 11.1 % (0.0-8.0); NEUT % 70.9 % (16.0-70.0); PLATELET COUNT 97 TH/MM3 (150-450); RED BLOOD COUNT 3.38 MIL/MM3 (4.00-5.30); RED CELL DISTRIBUTION WIDTH 14.8 % (11.6-17.2); WHITE BLOOD COUNT 3.7 TH/MM3 (4.0-11.0)
[2017-01-22] MEDS ORDERED: LOSA100T PO (16:31)
[2017-01-22] MEDS ORDERED: ASCO1CHW5 PO (16:31)
[2017-01-22] MEDS ORDERED: FURO1TAB62 PO (16:31)
[2017-01-22 16:33] LABS: HEMO FLAGS AUTO DIFF
[2017-01-22 16:37] VITALS: BP 191/88; PULSE 82; RESP 15; O2SAT 97
[2017-01-22 16:49] LABS: ALT (GPT) 73 U/L (10-53); ANION GAP 8 MEQ/L (5-15); AST (GOT) 61 U/L (15-37); BICARBONATE 27.8 MEQ/L (21.0-32.0); BLOOD UREA NITROGEN 37 MG/DL (7-18); CHLORIDE 99 MEQ/L (98-107); GLOMERULAR FILTRATION RATE 46 ML/MIN (>89); POTASSIUM 4.4 MEQ/L (3.5-5.1); SODIUM (NA) 135 MEQ/L (136-145)
--- NOTE | 2017-01-22 16:51 | RADRPT ---
EXAM DATE/TIME: 01/22/2017 15:40 [facility] COMPARISON: CHEST SINGLE AP, March 03, 2016, 11:45. INDICATIONS : Short of breath after diabetic episode. MEDICAL HISTORY : Diabetes mellitus type I. SURGICAL HISTORY : None. ENCOUNTER: Initial ACUITY: 1 day PAIN SCORE: 0/10 LOCATION: Bilateral chest FINDINGS: A single view of the chest demonstrates the lungs to be symmetrically aerated without evidence of mas s, infiltrate or effusion. The cardiomediastinal contours are unremarkable. Osseous structures are intact. CONCLUSION: 1. No acute cardiopulmonary disease. Satish Moeller MD on January 22, 2017 at 16:49 Board Certified Radiologist. This report was verified electronically.
[2017-01-22 16:52] LABS: ALKALINE PHOSPHATASE 297 U/L (45-117); TOTAL BILIRUBIN ADULT 0.4 MG/DL (0.2-1.0)
[2017-01-22 17:25] LABS: PLATELET ESTIMATE SMEAR LOW (NORMAL); PLATELET MORPHOLOGY NORMAL (NORMAL); SCAN/DIFF AUTO DIFF CONFIRMED
--- NOTE | 2017-01-22 17:44 | PD ---
HPI Chief Complaint: Abnormal Results Time Seen by Provider: 15:24 Travel History International Travel<30 days: No Contact w/Intl Traveler<30days: No Traveled to known affect area: No History of Present Illness HPI Patient 66-year-old female type I diabetic on Levemir and regular insulin presents emergency Department with an episode of hypoglycemia. Patient states she took Levemir regular doses morning ate breakfast and had some juices well and started feeling very tired, her granddaughter whom lives with her noticed the symptoms and immediately gave her some additional sugar to each and when her mental status didn't appropriately respond she called 911, according to EMS her sugar was between 20 and 30 on arrival. The patient was awake enough to try some by mouth glucose and she was able tolerate however this did not significantly alter her sugar as she was given D10. On arrival the patient states she feels actually fine. Denies any chest pain shortness breath abdominal pain nausea vomiting fevers. PFSH Past Medical History Hx Anticoagulant Therapy: Yes (ASPIRIN 81mg) Arthritis: Yes Asthma: No Autoimmune Disease: Yes (HEPATITIS) Blood Disorders: No Anxiety: Yes Depression: Yes Heart Rhythm Problems: Yes (RBBB) Cancer: No Cardiovascular Problems: Yes (HTN) High Cholesterol: No Chemotherapy: No Chest Pain: No Congestive Heart Failure: No Cirrhosis: Yes COPD: No Cerebrovascular Accident: No Diabetes: Yes Patient Takes Glucophage: No Diminished Hearing: No Endocrine: Yes Gastrointestinal Disorders: Yes (liver cirrhosis) GERD: No Genitourinary: No Headaches: Yes Hepatitis: Yes (AUTOIMMUNE) Hypertension: Yes Immune Disorder: Yes (autoimmune hepatitis) Implanted Vascular Access Dvce: No Musculoskeletal: No Neurologic: Yes Psychiatric: Yes Reproductive: No Respiratory: No Immunizations Current: Yes Radiation Therapy: No Seizures: No Sleep Apnea: No Thyroid Disease: No ?: Not Ovarian Cysts: Yes (1985) Past Surgical History Abdominal Surgery: Yes (APPENDECTOMY) Appendectomy: Yes Gynecologic Surgery: Yes (HYSTERECTOMY ) Hysterectomy: Yes Pacemaker: No Other Surgery: Yes (LIVER/BREAST BIOPSY) Social History Alcohol Use: No (PT DENIES) Tobacco Use: No Substance Use: No (PT DENIES) Allergies-Medications (Allergen,Severity, Reaction): Coded Allergies: Morphine (Verified Allergy, Severe, Rash, 01/22/17) Penicillin (Verified Allergy, Severe, Rash, 01/22/17) Tetracycline (Verified Allergy, Severe, Rash, 01/22/17) Clindamycin (Verified Allergy, Unknown, Nausea/Vomiting, 01/22/17) Sulfa (Verified Allergy, Unknown, Rash, 01/22/17) Reported Meds & Prescriptions Reported Meds & Active Scripts Active Levemir Inj (Insulin Detemir) 1,000 unit/ 10 ML Vial 15 Units SQ HS 30 Days Levemir Inj (Insulin Detemir) 1,000 unit/ 10 ML Vial 25 Units SQ DAILY 30 Days Zetia (Ezetimibe) 10 Mg Tab 10 Mg PO DAILY Clonidine (Clonidine HCl) 0.1 Mg Tab 0.1 Mg PO TID Nifedipine ER 24 HR (Nifedipine) 30 Mg Tab 30 Mg PO DAILY 30 Days Pantoprazole (Pantoprazole Sodium) 40 Mg Tab 40 Mg PO DAILY Metoprolol Tartrate 25 Mg Tab 25 Mg PO Q12HR Zoloft (Sertraline HCl) 50 Mg Tab 50 Mg PO DAILY Reported Lasix (Furosemide) 20 Mg Tab 20 Mg PO DAILY Losartan (Losartan Potassium) 100 Mg Tab 100 Mg PO DAILY C-500 (Ascorbic Acid) 500 Mg Tab.chew 500 Mg PO DAILY Prednisone 10 Mg Tab 10 Mg PO DAILY Vitamin D3 (Cholecalciferol) 1,000 Unit Tab 1,000 Units PO DAILY Levothyroxine (Levothyroxine Sodium) 75 Mcg Tab 75 Mcg PO DAILY Humalog Inj (Insulin Human Lispro) 1,000 Unit/10 Ml Vial 6-16 Units SQ ACHS Mercaptopurine 50 Mg Tab 50 Mg PO DAILY Enulose Liq (Lactulose (Encephalopathy) Liq) 10 Gm/15 Ml Soln 20 Gm PO BID Review of Systems Except as stated in HPI: all other systems reviewed are Neg Physical Exam Narrative GENERAL: Well-developed well-nourished no apparent distress SKIN: Focused skin assessment warm/dry. HEAD: Atraumatic. Normocephalic. EYES: Pupils equal and round. No scleral icterus. No injection or drainage. ENT: No nasal bleeding or discharge. Mucous membranes pink and moist. NECK: Trachea midline. No JVD. CARDIOVASCULAR: Regular rate and rhythm. No murmur appreciated. RESPIRATORY: No accessory muscle use. Clear to auscultation. Breath sounds equal bilaterally. GASTROINTESTINAL: Abdomen soft, non-tender, nondistended. Hepatic and splenic margins not palpable. MUSCULOSKELETAL: No obvious deformities. No clubbing. No cyanosis. No edema. NEUROLOGICAL: Awake and alert. No obvious cranial nerve deficits. Motor grossly within normal limits. Normal speech. PSYCHIATRIC: Appropriate mood and affect; insight and judgment normal. Data Data Last Documented VS Vital Signs Date Time Temp Pulse Resp B/P Pulse Ox O2 Delivery O2 Flow Rate FiO2 01/22/17 16:37 82 15 191/88 97 Room Air 01/22/17 15:25 97.4 Orders Complete Blood Count With Diff (01/22/17 15:30) Comprehensive Metabolic Panel (01/22/17 15:30) Iv Access Insert/Monitor (01/22/17 15:30) Ecg Monitoring (01/22/17 15:30) Oximetry (01/22/17 15:30) Sodium Chloride 0.9% Flush (Ns Flush) (01/22/17 15:30) Chest, Single Ap (01/22/17 15:30) Electrocardiogram (01/22/17 ) Troponin I (01/22/17 15:30) Bedside Glucose DORIS.Q2H (01/22/17 15:30) Labs Laboratory Tests Test 01/22/17 16:00 White Blood Count 3.7 TH/MM3 Red Blood Count 3.38 MIL/MM3 Hemoglobin 11.3 GM/DL Hematocrit 33.8 % Mean Corpuscular Volume 100.1 FL Mean Corpuscular Hemoglobin 33.5 PG Mean Corpuscular Hemoglobin 33.5 % Concent Red Cell Distribution Width 14.8 % Platelet Count 97 TH/MM3 Mean Platelet Volume 10.4 FL Neutrophils (%) (Auto) 70.9 % Lymphocytes (%) (Auto) 16.2 % Monocytes (%) (Auto) 11.1 % Eosinophils (%) (Auto) 1.0 % Basophils (%) (Auto) 0.8 % Neutrophils # (Auto) 2.6 TH/MM3 Lymphocytes # (Auto) 0.6 TH/MM3 Monocytes # (Auto) 0.4 TH/MM3 Eosinophils # (Auto) 0.0 TH/MM3 Basophils # (Auto) 0.0 TH/MM3 CBC Comment AUTO DIFF Differential Comment AUTO DIFF CONFIRMED Platelet Estimate LOW Platelet Morphology Comment NORMAL Sodium Level 135 MEQ/L Potassium Level 4.4 MEQ/L Chloride Level 99 MEQ/L Carbon Dioxide Level 27.8 MEQ/L Anion Gap 8 MEQ/L Blood Urea Nitrogen 37 MG/DL Creatinine 1.17 MG/DL Estimat Glomerular Filtration 46 ML/MIN Rate Random Glucose 305 MG/DL Calcium Level 9.5 MG/DL Total Bilirubin 0.4 MG/DL Aspartate Amino Transf 61 U/L (AST/SGOT) Alanine Aminotransferase 73 U/L (ALT/SGPT) Alkaline Phosphatase 297 U/L Troponin I 0.02 NG/ML Total Protein 8.1 GM/DL Albumin 3.1 GM/DL MDM Medical Decision Making Medical Screen Exam Complete: Yes Emergency Medical Condition: Yes Interpretation(s) EKG shows normal sinus rhythm left axis deviation, no concerning ST segment changes, Q waves in lead 3 and aVF probably signifies prior AK but is nonspecific finding. This is borderline EKG. Differential Diagnosis Hypoglycemia secondary to insulin, transient hypoglycemia, persistent hyperglycemia, DKA, sepsis is excluded clinically. Narrative Course Patient roomed in the emergency department, on arrival her sugars in the 200s, she was observed for 2 hours in the emergency department and sugars actually come up some, no evidence of DKA and no evidence of heart attack sepsis or other infection. Discussed with the patient and given her long-acting insulin dose should consider keeping the patient under observation status however given that her sugar is increasing in no further interventions been required in the emergency department she could be sent home with her daughter and granddaughter as it appears that they are all reliable to take care of any recurrent hypoglycemia should it occur. The patient would like to go home and I think this is reasonable. Discussed signs symptoms that should prompt emergent return , her daughter is coming to pick her up. Diagnosis Primary Impression: Hypoglycemia due to insulin Disposition: 01 DISCHARGE HOME Condition: Stable Lex Bernal MD Jan 22, 2017 17:44
--- NOTE | 2017-01-23 22:47 | EKG ---
Date Performed: 01/22/2017 Time Performed: 15:54:00 PTAGE: 66 years EKG: Sinus rhythm INFERIOR MYOCARDIAL INFARCTION ABNORMAL ECG PREVIOUS TRACING : 10/10/2016 19.56 DOCTOR: Marlen Loco Interpretating Date/Time 01/23/2017 22:45:22
== END 2017-01-22 18:45 | disposition home or self-care (01) ==
LOC: NEPC 14:45
DX: E10.649 Type 1 diabetes mellitus with hypoglycemia without coma (principal); R94.31 Abnormal electrocardiogram [ECG] [EKG]; I10 Essential (primary) hypertension; Z79.4 Long term (current) use of insulin; Z79.82 Long term (current) use of aspirin; Z87.39 Personal history of other diseases of the musculoskeletal system and connective tissue; Z86.59 Personal history of other mental and behavioral disorders; Z86.79 Personal history of other diseases of the circulatory system; Z87.19 Personal history of other diseases of the digestive system; Z86.2 Personal history of diseases of the blood and blood-forming organs and certain disorders involving the immune mechanism; Z86.69 Personal history of other diseases of the nervous system and sense organs
CPT/HCPCS: 71010; 80053; 84484; 85025; 93005; 99285

== ENCOUNTER 2017-04-10 13:20 | Observation (INO) | payer MEDICARE, OTHER ==
[~2017-04-10] VITALS: Ht 157.5 cm; Wt 67.6 kg
[~2017-04-10 13:20] MED LIST changes: +ASCO1CHW5 PO; -DIFL0.0512 RIGHT EYE; +EZET10 PO; +FURO1TAB62 PO; +LOSA100T PO; -MECL-62 PO; -MISC-274; -OCUF0.3D RIGHT EYE; -VITA500T PO; -ZETI10TA5 PO
[2017-04-10 13:27] VITALS: BP 133/62; PULSE 63; RESP 20; TEMP 97.8; O2SAT 98
[2017-04-10 14:47] LABS: AUTOMATED NEUTROPHIL # 2.2 TH/MM3 (1.8-7.7); BASOPHIL % 0.3 % (0.0-2.0); EOSINOPHIL % 0.4 % (0.0-4.0); HEMATOCRIT 29.3 % (35.0-46.0); LYMPH % 13.2 % (9.0-44.0); LYMPHOCYTE # 0.4 TH/MM3 (1.0-4.8); MEAN CELL VOLUME 99.9 FL (80.0-100.0); MEAN CORPUSCULAR HEMOGLOBIN 33.4 PG (27.0-34.0); MEAN CORPUSCULAR HGB CONC 33.4 % (32.0-36.0); MONO % 11.7 % (0.0-8.0); NEUT % 74.4 % (16.0-70.0); PLATELET COUNT 90 TH/MM3 (150-450); RED BLOOD COUNT 2.93 MIL/MM3 (4.00-5.30); RED CELL DISTRIBUTION WIDTH 15.1 % (11.6-17.2); WHITE BLOOD COUNT 2.9 TH/MM3 (4.0-11.0)
[2017-04-10 14:57] LABS: HEMO FLAGS AUTO DIFF
[2017-04-10 15:14] LABS: ALKALINE PHOSPHATASE 294 U/L (45-117); ALT (GPT) 75 U/L (10-53); ANION GAP 7 MEQ/L (5-15); AST (GOT) 77 U/L (15-37); BICARBONATE 31.6 MEQ/L (21.0-32.0); BLOOD UREA NITROGEN 35 MG/DL (7-18); CHLORIDE 99 MEQ/L (98-107); GLOMERULAR FILTRATION RATE 41 ML/MIN (>89); POTASSIUM 4.7 MEQ/L (3.5-5.1); SODIUM (NA) 138 MEQ/L (136-145); TOTAL BILIRUBIN ADULT 0.5 MG/DL (0.2-1.0)
[2017-04-10 15:25] LABS: SCAN/DIFF AUTO DIFF CONFIRMED
--- NOTE | 2017-04-10 17:12 | PD ---
HPI Chief Complaint: Syncope/Near-Syncope Time Seen by Provider: 17:10 Travel History International Travel<30 days: No Contact w/Intl Traveler<30days: No Traveled to known affect area: No History of Present Illness HPI 66-year-old female came to the emergency room with history of syncope last night followed by left wrist pain and right-sided rib pain this morning. She came to the emergency room to be checked out. Patient has history of diabetes and checked her sugar after the episode. It was in the 200s. Currently she does not appear to be in any significant distress. Patient says that she felt like she was going to pass out and then was on the floor. Patient was on the floor for a very short time when her granddaughter found her. She helped her stand up and brought her back to her bedroom. She also noticed a significant bruising on her left elbow area. But she is able to move her elbow fine. PFSH Past Medical History Narrative Medical List of her past medical, surgical, social and family history is reviewed from the nursing note. Hx Anticoagulant Therapy: Yes (ASPIRIN 81mg) Arthritis: Yes Asthma: No Autoimmune Disease: Yes (HEPATITIS) Blood Disorders: No Anxiety: Yes Depression: Yes Heart Rhythm Problems: Yes (RBBB) Cancer: No Cardiovascular Problems: Yes (HTN) High Cholesterol: No Chemotherapy: No Chest Pain: No Congestive Heart Failure: No Cirrhosis: Yes COPD: No Cerebrovascular Accident: No Diabetes: Yes Diminished Hearing: No Endocrine: Yes Gastrointestinal Disorders: Yes (liver cirrhosis) GERD: No Genitourinary: No Headaches: Yes Hepatitis: Yes (AUTOIMMUNE) Hypertension: Yes Immune Disorder: Yes (autoimmune hepatitis) Implanted Vascular Access Dvce: No Musculoskeletal: No Neurologic: Yes Psychiatric: Yes Reproductive: No Respiratory: No Immunizations Current: Yes Radiation Therapy: No Seizures: No Sleep Apnea: No Thyroid Disease: No ?: Not Ovarian Cysts: Yes (1985) Past Surgical History Abdominal Surgery: Yes (APPENDECTOMY) Appendectomy: Yes Gynecologic Surgery: Yes (HYSTERECTOMY ) Hysterectomy: Yes Pacemaker: No Other Surgery: Yes (LIVER/BREAST BIOPSY) Social History Alcohol Use: No (PT DENIES) Tobacco Use: No Substance Use: No (PT DENIES) Allergies-Medications (Allergen,Severity, Reaction): Coded Allergies: doxycycline (Unverified Allergy, Severe, Rash, 04/10/17) minocycline (Unverified Allergy, Severe, Rash, 04/10/17) morphine (Unverified Allergy, Severe, Rash, 04/10/17) penicillin G (Unverified Allergy, Severe, Rash, 04/10/17) tigecycline (Unverified Allergy, Severe, Rash, 04/10/17) Sulfa (Sulfonamide Antibiotics) (Unverified Allergy, Unknown, Rash, 04/10/17 ) clindamycin (Unverified Allergy, Unknown, Nausea/Vomiting, 04/10/17) Comments List of her allergies reviewed from the nursing note. Reported Meds & Prescriptions Reported Meds & Active Scripts Active Levemir Inj (Insulin Detemir) 1,000 unit/ 10 ML Vial 25 Units SQ DAILY 30 Days Clonidine (Clonidine HCl) 0.1 Mg Tab 0.1 Mg PO TID Nifedipine ER 24 HR (Nifedipine) 30 Mg Tab 30 Mg PO DAILY 30 Days Pantoprazole (Pantoprazole Sodium) 40 Mg Tab 40 Mg PO DAILY Metoprolol Tartrate 25 Mg Tab 25 Mg PO Q12HR Zoloft (Sertraline HCl) 50 Mg Tab 50 Mg PO DAILY Reported Cholestyramine 4 Gm/Dose Powd 4 Gm PO BID 1 level scoopful of powder contains 4 grams of cholestyramine. Levemir Inj (Insulin Detemir) 1,000 unit/ 10 ML Vial 12 Units SQ HS Do not mix with any other Insulin. Prednisone 5 Mg Tab 5 Mg PO DAILY Novolog Inj (Insulin Aspart) 1,000 Unit/10 Ml Vial 0 SQ DIRECTED Sliding Scale as directed. Lasix (Furosemide) 20 Mg Tab 20 Mg PO DAILY Losartan (Losartan Potassium) 100 Mg Tab 100 Mg PO DAILY C-500 (Ascorbic Acid) 500 Mg Tab.chew 500 Mg PO DAILY Vitamin D3 (Cholecalciferol) 1,000 Unit Tab 1,000 Units PO DAILY Levothyroxine (Levothyroxine Sodium) 75 Mcg Tab 75 Mcg PO DAILY Mercaptopurine 50 Mg Tab 50 Mg PO DAILY Enulose Liq (Lactulose (Encephalopathy) Liq) 10 Gm/15 Ml Soln 20 Gm PO BID Narrative Medication List of her home medications reviewed from the nursing note. Review of Systems Except as stated in HPI: all other systems reviewed are Neg Physical Exam Narrative GENERAL: Awake, alert, no obvious distress SKIN: Focused skin assessment warm/dry. Left distal forearm extensor surface has a 6 cm x 4 cm hematoma that is slightly tender to touch. But full range of motion at the elbow joint HEAD: Atraumatic. Normocephalic. EYES: Pupils equal and round. No scleral icterus. No injection or drainage. ENT: No nasal bleeding or discharge. Mucous membranes pink and moist. Right nasal periorbital ecchymosis NECK: Trachea midline. No JVD. CARDIOVASCULAR: Regular rate and rhythm. No murmur appreciated. RESPIRATORY: No accessory muscle use. Clear to auscultation. Breath sounds equal bilaterally. GASTROINTESTINAL: Abdomen soft, non-tender, nondistended. Hepatic and splenic margins not palpable. MUSCULOSKELETAL: No obvious deformities. No clubbing. No cyanosis. No edema. Snuffbox tenderness on the left wrist. Right posterior 10th to 11th rib tenderness NEUROLOGICAL: Awake and alert. No obvious cranial nerve deficits. Motor grossly within normal limits. Normal speech. PSYCHIATRIC: Appropriate mood and affect; insight and judgment normal. Data Data Last Documented VS Vital Signs Date Time Temp Pulse Resp B/P (MAP) Pulse Ox O2 Delivery O2 Flow Rate FiO2 04/10/17 13:27 97.8 63 20 133/62 (85) 98 Orders Orders Electrocardiogram (04/10/17 14:14) Complete Blood Count With Diff (04/10/17 14:14) Comprehensive Metabolic Panel (04/10/17 14:14) Iv Access Insert/Monitor (04/10/17 14:14) Blood Glucose (04/10/17 14:14) Sodium Chlor 0.9% 1000 Ml Inj (Ns 1000 M (04/10/17 18:15) Insulin Human Regular Inj (Novolin R Inj (04/10/17 18:15) Wrist, Complete ([id number]) (04/10/17 ) Ct Brain W/O Iv Contrast(Rout) (04/10/17 ) Ct Thorax/ Chest Wo Iv Contras (04/10/17 ) Splinting (04/10/17 ) Fiberglass Splint Forearm Adul (04/10/17 ) Admit Order (Ed Use Only) (04/10/17 20:45) Labs Laboratory Tests Test 04/10/17 14:28 White Blood Count 2.9 TH/MM3 Red Blood Count 2.93 MIL/MM3 Hemoglobin 9.8 GM/DL Hematocrit 29.3 % Mean Corpuscular Volume 99.9 FL Mean Corpuscular Hemoglobin 33.4 PG Mean Corpuscular Hemoglobin Concent 33.4 % Red Cell Distribution Width 15.1 % Platelet Count 90 TH/MM3 Mean Platelet Volume 9.6 FL Neutrophils (%) (Auto) 74.4 % Lymphocytes (%) (Auto) 13.2 % Monocytes (%) (Auto) 11.7 % Eosinophils (%) (Auto) 0.4 % Basophils (%) (Auto) 0.3 % Neutrophils # (Auto) 2.2 TH/MM3 Lymphocytes # (Auto) 0.4 TH/MM3 Monocytes # (Auto) 0.3 TH/MM3 Eosinophils # (Auto) 0.0 TH/MM3 Basophils # (Auto) 0.0 TH/MM3 CBC Comment AUTO DIFF Differential Comment AUTO DIFF CONFIRMED Blood Urea Nitrogen 35 MG/DL Creatinine 1.29 MG/DL Random Glucose 330 MG/DL Total Protein 7.9 GM/DL Albumin 2.9 GM/DL Calcium Level 9.6 MG/DL Alkaline Phosphatase 294 U/L Aspartate Amino Transf (AST/SGOT) 77 U/L Alanine Aminotransferase (ALT/SGPT) 75 U/L Total Bilirubin 0.5 MG/DL Sodium Level 138 MEQ/L Potassium Level 4.7 MEQ/L Chloride Level 99 MEQ/L Carbon Dioxide Level 31.6 MEQ/L Anion Gap 7 MEQ/L Estimat Glomerular Filtration Rate 41 ML/MIN MDM Medical Decision Making Medical Screen Exam Complete: Yes Emergency Medical Condition: Yes Medical Record Reviewed: Yes Interpretation(s) Twelve-lead EKG was reviewed by me. Normal sinus rhythm, normal axis, nonspecific ST-T wave changes, bradycardia, questionable old inferior SD. Heart rate of 55 bpm. Differential Diagnosis Intracranial hemorrhage, wrist fracture, scaphoid fracture, cardiac arrhythmia Narrative Course 7:11 PM blood test results of back and patient has leukopenia, thrombocytopenia and anemia. Compared to her last blood test from 2 months ago the leukopenia and thrombocytopenia is not significantly low. However the hemoglobin count went down by 2 points. Her liver functions are elevated but patient has history of autoimmune hepatitis and this is a pre-existing condition. She has renal insufficiency which is preexistent as well. Her glucose was elevated and patient was given a liter of IV fluid bolus and 10 units of insulin subcutaneous. I last the nurse to repeat the sugar. Patient will need to be admitted given the syncopal episode. The. Orbital ecchymosis on the right side patient says she just noticed a few days ago and not sure how it happened. The feeling she must have had another syncopal episode then which she was unaware off. Patient wears glasses which may have caused the ecchymosis. I would like to admit her for these syncopal episodes. Patient knows this and agrees with it. Awaiting for the x-ray and CAT scan reports. 8:[address] report just came back and does not show any acute changes. Awaiting for the hospitalist to call back for admission. Procedures EKG Prior to Arrival: No HemaPrompt Point of Care Internal Pos. & Neg. Controls: Passed Fecal Specimen Occult Blood: Negative Diagnosis Primary Impression: Syncope Qualified Codes: R55 - Syncope and collapse Admitting Information Admitting Physician Requests: Observation Sean Maravilla MD Apr 10, 2017 17:12
[2017-04-10] MEDS ORDERED: SODIUM CHLOR 0.9% 1000 ML INJ 1,000 ML IV ONE (18:15)
[2017-04-10] MEDS ORDERED: INSULIN HUMAN REGULAR 1,000 UNITS/10 ML VIAL SQ ONE (18:15)
--- NOTE | 2017-04-10 19:27 | RADRPT ---
EXAM DATE/TIME: 04/10/2017 18:16 [facility] COMPARISON: No previous studies available for comparison. INDICATIONS : Left wrist pain. due to fall. MEDICAL HISTORY : None. SURGICAL HISTORY : None. ENCOUNTER: Initial ACUITY: 1 day PAIN SCORE: 2/10 LOCATION: Left Wrist. FINDINGS: Three view examination of the left wrist demonstrates no fracture. The bones are normally aligned. Th ere is joint space narrowing, subchondral sclerosis and hypertrophic change at the first carpometacar pal joint. The bones are osteopenic. Vascular calcifications are seen. CONCLUSION: No acute abnormality is seen. There is degenerative change at the first carpometacarpal joint and ost eopenia. Yayo Hall MD on April 10, 2017 at 19:24 Board Certified Radiologist. This report was verified electronically.
[2017-04-10] MEDS ORDERED: NOVOLOGP2 SQ (19:30)
[2017-04-10] MEDS ORDERED: LEVEMIR SQ (19:30)
[2017-04-10] MEDS ORDERED: PRED5TAB PO (19:30)
[2017-04-10] MEDS ORDERED: CHOL4POW3 PO (19:31)
--- NOTE | 2017-04-10 20:08 | RADRPT ---
EXAM DATE/TIME: 04/10/2017 18:42 [facility] COMPARISON: CT BRAIN W/O CONTRAST, August 08, 2016, 1:06. INDICATIONS : Trauma; fall. RADIATION DOSE: 56.35 CTDIvol (mGy) MEDICAL HISTORY : Cardiovascular disease. Hypertension. SURGICAL HISTORY : Appendectomy. Hysterectomy. ENCOUNTER: Initial ACUITY: 1 day PAIN SCALE: 5/10 LOCATION: cranial TECHNIQUE: Multiple contiguous axial images were obtained of the head. Using automated exposure control and adj ustment of the mA and/or kV according to patient size, radiation dose was kept as low as reasonably a chievable to obtain optimal diagnostic quality images. DICOM format image data is available electro nically for review and comparison. FINDINGS: CEREBRUM: The ventricles are normal for age. No evidence of midline shift, mass lesion, hemorrhage or acute in farction. No extra-axial fluid collections are seen. POSTERIOR FOSSA: The cerebellum and brainstem are intact. The 4th ventricle is midline. The cerebellopontine angle i s unremarkable. EXTRACRANIAL: The visualized portion of the orbits is intact. SKULL: The calvaria is intact. No evidence of skull fracture. CONCLUSION: Normal examination. Yayo Hall MD on April 10, 2017 at 20:05 Board Certified Radiologist. This report was verified electronically.
--- NOTE | 2017-04-10 20:16 | RADRPT ---
EXAM DATE/TIME: 04/10/2017 18:46 [facility] COMPARISON: CT PULMONARY ANGIOGRAM, December 12, 2014, 15:25. CT ABDOMEN & PELVIS W/O CONTRAST, December 12, 2014, 15:11. INDICATIONS : Trauma; fall. RADIATION DOSE: 5.1 CTDIvol (mGy) MEDICAL HISTORY : Hypertension. Cardiovascular disease SURGICAL HISTORY : None. ENCOUNTER: Initial ACUITY: 1 day PAIN SCALE: 5/10 LOCATION: Bilateral chest TECHNIQUE: Volumetric scanning of the chest was performed. Using automated exposure control and adjustment of t he mA and/or kV according to patient size, radiation dose was kept as low as reasonably achievable to obtain optimal diagnostic quality images. DICOM format image data is available electronically for r eview and comparison. Follow-up recommendations for detected pulmonary nodules are based at a minimum on nodule size and pa tient risk factors according to Fleischner Society Guidelines. FINDINGS: LUNGS: There is chronic appearing interstitial change seen at the posterior lower lobes bilaterally being mo re prominent on the right. On the right, this is associated with some focal emphysematous change. PLEURAE: There is no pleural thickening or pleural effusion. MEDIASTINUM: The heart and great vessels demonstrate no acute abnormality. There is no mediastinal or hilar lymph adenopathy. Coronary artery calcifications are present. AXILLAE: Within normal limits. No lymphadenopathy. MUSCULOSKELETAL: Within normal limits for patient age. MISCELLANEOUS: The liver has a cirrhotic appearance with a nodular liver surface and hypertrophy of the left lobe. T he spleen appears enlarged. CONCLUSION: 1. No definite acute abnormality seen. 2. Chronic appearing interstitial disease of the lower lobes the more proximal right. 3. Cirrhotic appearing liver. The spleen appears enlarged. 4. Coronary artery calcification. Yayo Hall MD on April 10, 2017 at 20:10 Board Certified Radiologist. This report was verified electronically.
--- NOTE | 2017-04-10 20:55 | HHI.HP ---
HPI Service [facility] Primary Care Physician Luis Clark DO Admission Diagnosis syncope Diagnoses: (1) Syncope Diagnosis: Principal (2) HTN (hypertension) Diagnosis: Principal (3) OSVALDO (acute kidney injury) Diagnosis: Principal (4) Autoimmune hepatitis Diagnosis: Principal (5) DM (diabetes mellitus) Diagnosis: Principal (6) Rib pain Diagnosis: Principal (7) Wrist pain Diagnosis: Principal Travel History International Travel<30 Days: No Contact w/Intl Traveler <30 Da: No Traveled to Known Affected Are: No History of Present Illness This is a 66-year-old female with a PMH of HTN, Autoimmune Hepatitis, Cirrhosis , DM, Anxiety, Depression and RBBB who was brought to the ER after syncopal event. Pt reports she felt sudden onset of lightheadedness, states she "knows when my blood sugar is off", reports lightheadedness and diaphoresis w/ low blood sugar and states "knees buckle" when her blood sugar is high. States she went to the kitchen to get orange juice thinking her BS was low when she had acute syncopal episode, approx few minutes, found by granddaughter. Pt w/ c/o left elbow pain and rib pain. On arrival, BP 133/62, HR 63, O2 sat 98% on RA, Afebrile. CBC at baseline in comparison to previous labs from 01/22/17 and back. Creatinine 1.29, previously 1.17 on 01/22/17. BS 330. LFTs mildly elevated, similar in comparison to previous labs. CT Chest with no acute findings, cirrhotic-appearing liver. CT Head normal. Wrist X-ray with no acute abnormality. Review of Systems Except as stated in HPI: all other systems reviewed are Neg ROS: 14 point review of systems otherwise negative. Past Family Social History Past Medical History PMH: HTN, Autoimmune Hepatitis, Cirrhosis, DM, Anxiety, Depression and RBBB Past Surgical History PAST SURGICAL HISTORY: Appendectomy, Hysterectomy, Liver/Breast Biopsy Allergies: Coded Allergies: doxycycline (Unverified Allergy, Severe, Rash, 04/10/17) minocycline (Unverified Allergy, Severe, Rash, 04/10/17) morphine (Unverified Allergy, Severe, Rash, 04/10/17) penicillin G (Unverified Allergy, Severe, Rash, 04/10/17) tigecycline (Unverified Allergy, Severe, Rash, 04/10/17) Sulfa (Sulfonamide Antibiotics) (Unverified Allergy, Unknown, Rash, 04/10/17 ) clindamycin (Unverified Allergy, Unknown, Nausea/Vomiting, 04/10/17) Family History PAST FAMILY HISTORY: Reviewed. No h/o DM or CAD Social History PAST SOCIAL HISTORY: Negative for alcohol, tobacco or drugs. Physical Exam Vital Signs Vital Signs Date Time Temp Pulse Resp B/P (MAP) Pulse Ox O2 Delivery O2 Flow Rate FiO2 04/10/17 13:27 97.8 63 20 133/62 (85) 98 Physical Exam PE: GENERAL: Extremely pleasant middle-aged white female in no acute distress. HEENT: PERRLA, EOMI. No scleral icterus or conjunctival pallor. No lid lag or facial droop. Normal skin turgor. CARDIOVASCULAR: Regular rate and rhythm. No obvious murmurs to auscultation. No chest tenderness to palpation. RESPIRATORY: No obvious rhonchi or wheezing. Clear to auscultation. Breath sounds equal bilaterally. GASTROINTESTINAL: Abdomen soft, non-tender, nondistended. BS normal. MUSCULOSKELETAL: Extremities without clubbing, cyanosis, or edema. No obvious deformities. Left elbow hematoma, mild tenderness, normal ROM. NEUROLOGICAL: Awake, alert and oriented x4. No focal neurologic deficits. Moving both upper and lower extremities spontaneously. Laboratory Laboratory Tests Test 04/10/17 14:28 White Blood Count 2.9 Red Blood Count 2.93 Hemoglobin 9.8 Hematocrit 29.3 Mean Corpuscular Volume 99.9 Mean Corpuscular Hemoglobin 33.4 Mean Corpuscular Hemoglobin Concent 33.4 Red Cell Distribution Width 15.1 Platelet Count 90 Mean Platelet Volume 9.6 Neutrophils (%) (Auto) 74.4 Lymphocytes (%) (Auto) 13.2 Monocytes (%) (Auto) 11.7 Eosinophils (%) (Auto) 0.4 Basophils (%) (Auto) 0.3 Neutrophils # (Auto) 2.2 Lymphocytes # (Auto) 0.4 Monocytes # (Auto) 0.3 Eosinophils # (Auto) 0.0 Basophils # (Auto) 0.0 CBC Comment AUTO DIFF Differential Comment AUTO DIFF CONFIRMED Blood Urea Nitrogen 35 Creatinine 1.29 Random Glucose 330 Total Protein 7.9 Albumin 2.9 Calcium Level 9.6 Alkaline Phosphatase 294 Aspartate Amino Transf (AST/SGOT) 77 Alanine Aminotransferase (ALT/SGPT) 75 Total Bilirubin 0.5 Sodium Level 138 Potassium Level 4.7 Chloride Level 99 Carbon Dioxide Level 31.6 Anion Gap 7 Estimat Glomerular Filtration Rate 41 Result Diagram: 04/10/17142704/10/171427 Caprini VTE Risk Assessment Caprini VTE Risk Assessment: No/Low Risk (score <= 1) Caprini Risk Assessment Model Point Value = 1 Point Value = 2 Point Value = 3 Point Value = 5 Age 41-60 Minor surgery BMI > 25 kg/m2 Swollen legs Varicose veins or History of unexplained or recurrent spontaneous Oral contraceptives or hormone replacement Sepsis (< 1 month) Serious lung disease, including pneumonia (< 1 month) Abnormal pulmonary function Acute myocardial infarction Congestive heart failure (< 1 month) History of inflammatory bowel disease Medical patient at bed rest Age 61-74 Arthroscopic surgery Major open surgery (> 45 min) Laparoscopic surgery (> 45 min) Malignancy Confined to bed (> 72 hours) Immobilizing plaster cast Central venous access Age >= 75 History of VTE Family history of VTE Factor V Leiden Prothrombin [id number] Lupus anticoagulant Anticardiolipin antibodies Elevated serum homocysteine Heparin-induced thrombocytopenia Other congenital or acquired thrombophilia Stroke (< 1 month) Elective arthroplasty Hip, pelvis, or leg fracture Acute spinal cord injury (< 1 month) Prophylaxis Regimen Total Risk Factor Score Risk Level Prophylaxis Regimen 0-1 Low Early ambulation 2 Moderate Order ONE of the following: *Sequential Compression Device (SCD) *Heparin 5000 units SQ BID 3-4 Higher Order ONE of the following medications: *Heparin 5000 units SQ TID *Enoxaparin/Lovenox 40 mg SQ daily (WT < 150 kg, CrCl > 30 mL/min) *Enoxaparin/Lovenox 30 mg SQ daily (WT < 150 kg, CrCl > 10-29 mL/min) *Enoxaparin/Lovenox 30 mg SQ BID (WT < 150 kg, CrCl > 30 mL/min) AND/OR *Sequential Compression Device (SCD) 5 or more Highest Order ONE of the following medications: *Heparin 5000 units SQ TID (Preferred with Epidurals) *Enoxaparin/Lovenox 40 mg SQ daily (WT < 150 kg, CrCl > 30 mL/min) *Enoxaparin/Lovenox 30 mg SQ daily (WT < 150 kg, CrCl > 10-29 mL/min) *Enoxaparin/Lovenox 30 mg SQ BID (WT < 150 kg, CrCl > 30 mL/min) AND *Sequential Compression Device (SCD) Assessment and Plan Problem List: (1) Syncope ICD Code: R55 - Syncope and collapse Status: Acute (2) OSVALDO (acute kidney injury) ICD Code: N17.9 - Acute kidney failure, unspecified Status: Acute (3) Rib pain ICD Code: R07.81 - Pleurodynia (4) Wrist pain ICD Code: M25.539 - Pain in unspecified wrist (5) HTN (hypertension) ICD Code: I10 - Essential (primary) hypertension (6) Autoimmune hepatitis ICD Code: K75.4 - Autoimmune hepatitis Status: Chronic (7) DM (diabetes mellitus) ICD Code: E11.9 - Type 2 diabetes mellitus without complications Status: Chronic Assessment and Plan A/P: 1. Syncope: +lightheadedness/dizziness followed by syncopal event, attributes syncope to elevated BS. CT Head w/ no acute findings, images reviewed by me. Echo 03/05/16 w/ EF 65%, normal LV function, no need to repeat Echo at this time. Telemetry, IVF for hydration. 2. Rib Pain: Right. S/p syncope, CT Chest w/ no acute findings, images reviewed by me. Lidoderm patch prn if needed. 3. Wrist Pain: Left. S/p syncope. X-ray w/ no acute abnormality seen, degenerative change at first carpometacarpal joint and osteopenia, images reviewed by me. Analgesics as needed. 4. OSVALDO: Acute on Chronic Renal Insufficiency. Creatinine 1.29, previously 1.17 on 01/22/17. Check U/a, IVF for hydration, repeat labs in am. 5. HTN: Uncontrolled. BP 215/96, HR 68, on multiple home medications, will resume, monitor BP closely. 6. Autoimmune Hepatitis: Chronic. Stable. On chronic steroid therapy, will resume home Prednisone. LFTs stable in comparison to previous. 7. DM: Uncontrolled. BS 330 on arrival. Resume home Levemir. Sliding scale w/ Accu-Cheks. Hgb A1c 9.8 on 10/11/16. 8. DVT Prophylaxis: SCD/Teds 9. Social work for d/c planning as needed. 10. Case discussed w/ ER physician at length. Problem Qualifiers (1) Syncope: Qualified Codes: R55 - Syncope and collapse (2) Wrist pain: Qualified Codes: M25.532 - Pain in left wrist Iesha Brock MD Apr 10, 2017 20:55
[2017-04-10] MEDS ORDERED: ACETAMINOPHEN/HYDROcodone 325 MG/5 MG TAB PO PRN (21:00)
[2017-04-10] MEDS ORDERED: MAGNESIUM HYDROXIDE SUSP 30 ML CUP PO PRN (21:00)
[2017-04-10] MEDS ORDERED: SENNOSIDES 8.6 MG TAB PO PRN (21:00)
[2017-04-10] MEDS ORDERED: BISACODYL 10 MG SUPP RECTAL PRN (21:00)
[2017-04-10] MEDS ORDERED: SODIUM CHLORIDE 0.9% FLUSH 10 ML FLUSH IV FLUSH PRN (21:00)
[2017-04-10] MEDS ORDERED: LACTULOSE SYRUP 20 GM/30 ML CUP PO PRN (21:00)
[2017-04-10 21:08] VITALS: BP 215/96; PULSE 68; RESP 14; O2SAT 96
[2017-04-10] MEDS: DOCUSATE SODIUM 50 MG/SENNA 8.6 MG TAB PO SCH (21:24)
[2017-04-10] MEDS: SODIUM CHLORIDE 0.9% FLUSH 10 ML FLUSH IV FLUSH SCH (21:24)
[2017-04-10] MEDS: SODIUM CHLOR 0.9% 1000 ML INJ 1,000 ML IV SCH (21:24)
[2017-04-10] MEDS ORDERED: METOPROLOL TARTRATE 5 MG/5 ML VIAL IV PUSH ONE (21:30)
[2017-04-10] MEDS ORDERED: GLUCAGON 1 MG/ML VIAL OTHER PRN (21:45)
[2017-04-10] MEDS ORDERED: LIDOCAINE HCL 5% PATCH T-DERMAL PRN (21:45)
[2017-04-10] MEDS ORDERED: DEXTROSE 50% IN WATER 50 ML VIAL(D50) IV PRN (21:45)
[2017-04-10 22:13] VITALS: BP 213/98
[2017-04-10 22:14] VITALS: BP 203/90
[2017-04-10] MEDS ORDERED: cloNIDine HCL 0.2 MG TAB PO ONE (22:45)
[2017-04-10] MEDS ORDERED: hydrALAZINE HCL 20 MG/ML VIAL IV PUSH ONE (22:45)
[2017-04-10 23:25] VITALS: BP 156/68
[2017-04-10 23:58] VITALS: BP 149/65; PULSE 70; RESP 17; TEMP 98.4; O2SAT 96
[2017-04-11] VITALS (11 sets, daily range): BP systolic 89–146; BP diastolic 41–69; PULSE 55–84; RESP 16; TEMP 98–98.6; O2SAT 81–96
[2017-04-11] MEDS: ACETAMINOPHEN/HYDROcodone 325 MG/10 MG TAB PO PRN (00:07)
[2017-04-11 00:47] LABS: BLOOD, URINE NEG (NEG); COMMENT (UR) CULT NOT INDICATED; CULTURE IF INDICATED CULT NOT INDICATED; GLUCOSE,URINE 1000 mg/dL (NEG); KETONE, URINE NEG (NEG); NITRITE,URINE NEG (NEG); PH, URINE 6.5 (5.0-8.5); SQUAMOUS EPITHELIAL CELL URINE 1 /hpf (0-5); TRANSITIONAL EPI CELLS, URINE 1 /hpf; URINE COLOR YELLOW (YELLW/STRAW)
[2017-04-11] MEDS: LEVOTHYROXINE SODIUM 75 MCG TAB PO SCH (05:39)
[2017-04-11] MEDS: CHOLESTYRAMINE 4 GM PACKET PO SCH ×2 (05:39→18:52)
[2017-04-11] MEDS: INSULIN ASPART SUPPLEMENTAL SCALE SQ SCH ×4 (07:28→23:24)
[2017-04-11] MEDS: SODIUM CHLOR 0.9% 1000 ML INJ 1,000 ML IV SCH ×2 (07:29→17:49)
[2017-04-11] MEDS: SODIUM CHLORIDE 0.9% FLUSH 10 ML FLUSH IV FLUSH SCH ×2 (08:25→21:00)
[2017-04-11] MEDS: cloNIDine HCL 0.1 MG TAB PO SCH ×3 (08:27→18:43)
[2017-04-11] MEDS: LACTULOSE SYRUP 20 GM/30 ML CUP PO SCH ×2 (08:27→22:08)
[2017-04-11] MEDS: CHOLECALCIFEROL (VIT D3) 1000 UNIT TAB PO SCH (08:27)
[2017-04-11] MEDS: DOCUSATE SODIUM 50 MG/SENNA 8.6 MG TAB PO SCH ×2 (08:27→22:08)
[2017-04-11] MEDS: NIFEdipine 30 MG SUSTAINED RELEASE TAB PO SCH (08:27)
[2017-04-11] MEDS: LOSARTAN 50 MG TAB PO SCH (08:28)
[2017-04-11] MEDS: predniSONE 5 MG TAB PO SCH (08:28)
[2017-04-11] MEDS: PANTOPRAZOLE SOD 40 MG DELAYED RELEASE TAB PO SCH (08:28)
[2017-04-11] MEDS: METOPROLOL TARTRATE 25 MG TAB PO SCH ×2 (08:29→22:08)
[2017-04-11] MEDS: ASCORBIC ACID 500 MG TAB PO SCH (08:29)
[2017-04-11] MEDS: INSULIN DETEMIR 100 UNITS/ML VIAL SQ SCH (08:37)
[2017-04-11] MEDS: SERTRALINE HCL 50 MG TAB PO SCH (08:37)
[2017-04-11 08:50] LABS: AUTOMATED NEUTROPHIL # 1.7 TH/MM3 (1.8-7.7); BASOPHIL % 0.5 % (0.0-2.0); EOSINOPHIL # 0.1 TH/MM3 (0-0.4); EOSINOPHIL % 1.9 % (0.0-4.0); HEMATOCRIT 26.8 % (35.0-46.0); LYMPH % 29.1 % (9.0-44.0); LYMPHOCYTE # 0.9 TH/MM3 (1.0-4.8); MEAN CELL VOLUME 101.2 FL (80.0-100.0); MEAN CORPUSCULAR HEMOGLOBIN 33.6 PG (27.0-34.0); MEAN CORPUSCULAR HGB CONC 33.2 % (32.0-36.0); MONO % 12.3 % (0.0-8.0); NEUT % 56.2 % (16.0-70.0); PLATELET COUNT 74 TH/MM3 (150-450); RED BLOOD COUNT 2.65 MIL/MM3 (4.00-5.30); RED CELL DISTRIBUTION WIDTH 15.2 % (11.6-17.2); WHITE BLOOD COUNT 3.1 TH/MM3 (4.0-11.0)
[2017-04-11 08:57] LABS: HEMO FLAGS AUTO DIFF
[2017-04-11] MEDS ORDERED: FUROSEMIDE 20 MG TAB PO SCH (09:00)
--- NOTE | 2017-04-11 09:19 | HHI.PR ---
Subjective Remarks Follow-up for syncope. The patient states that today she is having upset stomach and nausea after taking her pills this morning and has not had breakfast yet. I'll is in the room she did have an episode of vomiting with an intact pill. She states that she has been having problems swallowing bigger pills. She last vomited one week ago. Her dairy scientist is Dr. Etienne and she last had an EGD last year. She states that normally she has to sit on the side of the bed for a bit before she is able to ambulate. She states recently her prednisone was cut in half, otherwise denies any recent medication changes. Objective Vitals Vital Signs Date Time Temp Pulse Resp B/P (MAP) Pulse Ox O2 Delivery O2 Flow Rate FiO2 04/11/17 07:34 61 04/11/17 04:04 63 04/11/17 03:31 98.1 62 16 126/53 (77) 94 04/11/17 01:09 18 04/11/17 00:20 70 04/10/17 23:58 98.4 70 17 149/65 (93) 96 04/10/17 23:53 04/10/17 23:25 156/68 (97) 04/10/17 22:14 203/90 (127) 04/10/17 22:13 213/98 (136) 04/10/17 21:08 68 14 215/96 (135) 96 Room Air 04/10/17 13:27 97.8 63 20 133/62 (85) 98 I/O 04/10/17 04/10/17 04/10/17 04/11/17 04/11/17 04/11/17 06:59 14:59 22:59 06:59 14:59 22:59 Intake Total 1000 ml 250 ml 1000 ml Balance 1000 ml 250 ml 1000 ml Intake IV Total 1000 ml 250 ml 1000 ml # Voids 1 Result Diagram: 04/11/17 0707 04/10/17 1428 Imaging Last Impressions Wrist X-Ray 04/10/17 0000 Signed Impressions: Service Date/Time: Monday, April 10, 2017 18:16 - CONCLUSION: No acute abnormality is seen. There is degenerative change at the first carpometacarpal joint and osteopenia. Yayo Hall MD Head CT 04/10/17 0000 Signed Impressions: Service Date/Time: Monday, April 10, 2017 18:42 - CONCLUSION: Normal examination. Yayo Hall MD Chest CT 04/10/17 0000 Signed Impressions: Service Date/Time: Monday, April 10, 2017 18:46 - CONCLUSION: 1. No definite acute abnormality seen. 2. Chronic appearing interstitial disease of the lower lobes the more proximal right. 3. Cirrhotic appearing liver. The spleen appears enlarged. 4. Coronary artery calcification. Yayo Hall MD Objective Remarks GENERAL: Well-developed well-nourished. No acute distress. Appears mildly uncomfortable due to nausea. SKIN: Warm and dry. No lesions noted. HEENT: Normocephalic. Pupils equal and round. Mucous membranes pink and moist. CARDIOVASCULAR: Regular rate and rhythm. No murmur appreciated. RESPIRATORY: No accessory muscle use. Clear to auscultation. Breath sounds equal bilaterally. GASTROINTESTINAL: Abdomen soft, non-tender, nondistended. Bowel sounds x4. MUSCULOSKELETAL: Left wrist with splint in place. No clubbing or cyanosis. No edema. NEUROLOGICAL: Awake and alert. No focal neurological deficits. Moves upper and lower extremities spontaneously. Normal speech. PSYCHIATRIC: Pleasant mood and affect; insight and judgment normal. A/P Problem List: (1) Syncope ICD Code: R55 - Syncope and collapse Status: Acute (2) OSVALDO (acute kidney injury) ICD Code: N17.9 - Acute kidney failure, unspecified Status: Acute (3) Rib pain ICD Code: R07.81 - Pleurodynia (4) Wrist pain ICD Code: M25.539 - Pain in unspecified wrist (5) HTN (hypertension) ICD Code: I10 - Essential (primary) hypertension (6) Autoimmune hepatitis ICD Code: K75.4 - Autoimmune hepatitis Status: Chronic (7) DM (diabetes mellitus) ICD Code: E11.9 - Type 2 diabetes mellitus without complications Status: Chronic Assessment and Plan 66-year-old female with a PMH of HTN, Autoimmune Hepatitis, Cirrhosis, DM, Anxiety, Depression and RBBB who presented after syncopal event Syncope: +lightheadedness/dizziness followed by syncopal event, attributes syncope to elevated BS. Reviewed: CT Head w/ no acute findings. Echo 03/05/16 w/ EF 65%, normal LV function. -Telemetry -IVF for hydration. -Orthostatics -PT eval Fall: Secondary to syncope as above. Patient was having right rib pain and left wrist pain. Reviewed: CT Chest w/ no acute findings. X-ray w/ no acute abnormality seen, degenerative change at first carpometacarpal joint and osteopenia -Lidoderm patch -Analgesics as needed. -Wrist splint placed in the ED OSVALDO: Dehydration on top of chronic kidney disease. Creatinine 1.29, previously 1.17 on 01/22/17. -IVF and follow-up BMP HTN: Labile, currently controlled. -Continue home BP meds -Monitor and adjust regimen as needed Autoimmune Hepatitis: Chronic. Stable LFTs stable in comparison to previous. -On chronic steroid therapy, will resume home Prednisone. DM: Uncontrolled. BS 330 on arrival. -Continue home Levemir. -Sliding scale w/ Accu-Cheks. -Check hemoglobin A1c Nausea and vomiting: Occasional difficulty swallowing larger pills. -Swallow eval -Antiemetics as needed -Consult patient's dairy scientist DVT Prophylaxis: SCD/Teds Discharge Planning The patient has extremely labile blood pressure. Her blood pressure was over 200 systolic yesterday and today when standing is under [address] Cabello, hold diuretic and continue IVF for now and monitor BP response. Problem Qualifiers (1) Syncope: Qualified Codes: R55 - Syncope and collapse (2) Wrist pain: Qualified Codes: M25.532 - Pain in left wrist Pineda Quinonez Apr 11, 2017 09:19
[2017-04-11] MEDS: ONDANSETRON HCL 4 MG/2 ML VIAL IVP PRN (09:21)
[2017-04-11] MEDS: MERCAPTOPURINE 50 MG TAB PO SCH (09:26)
[2017-04-11 09:27] LABS: ALKALINE PHOSPHATASE 227 U/L (45-117); ALT (GPT) 53 U/L (10-53); ANION GAP 7 MEQ/L (5-15); AST (GOT) 49 U/L (15-37); BICARBONATE 27.9 MEQ/L (21.0-32.0); BLOOD UREA NITROGEN 32 MG/DL (7-18); CHLORIDE 104 MEQ/L (98-107); GLOMERULAR FILTRATION RATE 58 ML/MIN (>89); POTASSIUM 4.2 MEQ/L (3.5-5.1); SODIUM (NA) 139 MEQ/L (136-145); TOTAL BILIRUBIN ADULT 0.4 MG/DL (0.2-1.0)
[2017-04-11 09:28] LABS: SCAN/DIFF AUTO DIFF CONFIRMED
--- NOTE | 2017-04-11 09:57 | EKG ---
Date Performed: 04/10/2017 Time Performed: 14:21:10 PTAGE: 66 years EKG: SINUS BRADYCARDIA INFERIOR MYOCARDIAL INFARCTION ABNORMAL ECG PREVIOUS TRACING : 01/22/2017 15.54 DOCTOR: Kane Casillas Interpretating Date/Time 04/11/2017 09:54:59
[2017-04-11 10:54] LABS: HEMOGLOBIN A1a 1.2 %; HEMOGLOBIN Ao 77.8 %; HEMOGLOBIN F 1.9 %; HEMOGLOBIN LA1C 3.2 %; HEMOGLOBIN P3 7.3 %
--- NOTE | 2017-04-11 13:12 | PD.CONS ---
HPI History of Present Illness This is a 66 year old female patient of Dr Etienne. She has autoimmune hepatitis and is taking 6MP. She also has symptoms of dysphagia for pills on occasion and also dysphagia for food, with requirement of washing it down with water. She was admitted for observation because of syncopal event, sustaining an injury to her left upper extremity. She has diabetes and had a hypoglycemic episode, it seems. She is feeling well today, no abdominal pain. She denies previous esophageal dilatation, although she has had EGD to check her varices. She does have cirrhosis and ongoing elevation of LFTs because of her hepatitis. ROS: pain in left arm and hand. No headache. No nausea or vomiting. No rash. No fever. Otherwise complete ros is negative. PFSH Past Medical History PMH: HTN, Autoimmune Hepatitis, Cirrhosis, DM, Anxiety, Depression and RBBB Past Surgical History PAST SURGICAL HISTORY: Appendectomy, Hysterectomy, Liver/Breast Biopsy Coded Allergies: doxycycline (Unverified Allergy, Severe, Rash, 04/10/17) minocycline (Unverified Allergy, Severe, Rash, 04/10/17) morphine (Unverified Allergy, Severe, Rash, 04/10/17) penicillin G (Unverified Allergy, Severe, Rash, 04/10/17) tigecycline (Unverified Allergy, Severe, Rash, 04/10/17) Sulfa (Sulfonamide Antibiotics) (Unverified Allergy, Unknown, Rash, 04/10/17 ) clindamycin (Unverified Allergy, Unknown, Nausea/Vomiting, 04/10/17) Medications Current Medications Medications (Trade) Dose Ordered Sig/Miranda Route Start Time Stop Time Status Last Admin Sodium Chloride 1,000 ml @ 100 mls/hr Q10H IV 04/10/17 20:53 04/11/17 07:29 (NS Flush) 2 ml UNSCH PRN IV FLUSH 04/10/17 21:00 (NS Flush) 2 ml BID IV FLUSH 04/10/17 21:00 04/10/17 21:24 (Zofran Inj) 4 mg Q6H PRN IVP 04/10/17 21:00 04/11/17 09:21 (Tylenol) 650 mg Q6H PRN PO 04/10/17 21:00 ([place] 5-325 Mg) 1 tab Q4H PRN PO 04/10/17 21:00 ([place] 10-325 Mg) 1 tab Q4H PRN PO 04/10/17 21:00 04/11/17 00:07 (Sherlyn-Colace) 1 tab BID PO 04/10/17 21:00 04/11/17 08:27 (Milk Of Magnesia Liq) 30 ml Q12H PRN PO 04/10/17 21:00 (Senokot) 17.2 mg Q12H PRN PO 04/10/17 21:00 (Dulcolax Supp) 10 mg DAILY PRN RECTAL 04/10/17 21:00 (Lactulose Liq) 30 ml DAILY PRN PO 04/10/17 21:00 (Lidoderm 5% Patch.12 Hr) 1 patch DAILY PRN T-DERMAL 04/10/17 21:45 (D50w (Vial) Inj) 50 ml UNSCH PRN IV 04/10/17 21:45 (Glucagon Inj) 1 mg UNSCH PRN OTHER 04/10/17 21:45 (NovoLOG SUPPLEMENTAL SCALE) 1 ACHS SLIDING SCALE SQ 04/11/17 07:00 04/11/17 07:28 (Vitamin D3) 1,000 units DAILY PO 04/11/17 09:00 04/11/17 08:27 (Questran 4 Gm Pkt) 4 gm BID@0600,1800 PO 04/11/17 06:00 04/11/17 05:39 (Catapres) 0.1 mg TID PO 04/11/17 09:00 04/11/17 08:27 (Lasix) 20 mg DAILY PO 04/11/17 09:00 Future Hold 04/11/17 08:28 (Levemir Inj) 12 units HS SQ 04/11/17 21:00 (Levemir Inj) 25 units DAILY SQ 04/11/17 09:00 04/11/17 08:37 (Synthroid) 75 mcg DAILY@0600 PO 04/11/17 06:00 04/11/17 05:39 (Cozaar) 100 mg DAILY PO 04/11/17 09:00 04/11/17 08:28 (Purinethol) 50 mg DAILY PO 04/11/17 09:00 04/11/17 09:26 (Lopressor) 25 mg Q12HR PO 04/11/17 09:00 04/11/17 08:29 (Procardia Xl) 30 mg DAILY PO 04/11/17 09:00 04/11/17 08:27 (Protonix) 40 mg DAILY PO 04/11/17 09:00 04/11/17 08:28 (Deltasone) 5 mg DAILY PO 04/11/17 09:00 04/11/17 08:28 (Zoloft) 50 mg DAILY PO 04/11/17 09:00 04/11/17 08:37 (Vitamin C) 500 mg DAILY PO 04/11/17 09:00 04/11/17 08:29 (Lactulose Liq) 30 ml BID PO 04/11/17 09:00 04/11/17 08:27 Family History PAST FAMILY HISTORY: Reviewed. No h/o DM or CAD Social History PAST SOCIAL HISTORY: Negative for alcohol, tobacco or drugs. GI Exam Vitals I&O Vital Signs Date Time Temp Pulse Resp B/P (MAP) Pulse Ox O2 Delivery O2 Flow Rate FiO2 04/11/17 12:30 98.0 60 16 146/69 (94) 95 04/11/17 09:45 98.2 84 16 119/63 (81) 94 89/55 (66) 94/41 (58) 04/11/17 07:34 61 04/11/17 04:04 63 04/11/17 03:31 98.1 62 16 126/53 (77) 94 04/11/17 01:09 18 04/11/17 00:20 70 04/10/17 23:58 98.4 70 17 149/65 (93) 96 04/10/17 23:53 04/10/17 23:25 156/68 (97) 04/10/17 22:14 203/90 (127) 04/10/17 22:13 213/98 (136) 04/10/17 21:08 68 14 215/96 (135) 96 Room Air 04/10/17 13:27 97.8 63 20 133/62 (85) 98 I/O 04/10/17 04/10/17 04/10/17 04/11/17 04/11/17 04/11/17 07:00 15:00 23:00 07:00 15:00 23:00 Intake Total 1000 ml 250 ml 1000 ml Balance 1000 ml 250 ml 1000 ml Intake IV Total 1000 ml 250 ml 1000 ml # Voids 1 Laboratory Test 04/10/17 14:28 04/11/17 00:10 04/11/17 00:15 04/11/17 07:07 White Blood Count 2.9 TH/MM3 3.1 TH/MM3 Red Blood Count 2.93 MIL/MM3 2.65 MIL/MM3 Hemoglobin 9.8 GM/DL 8.9 GM/DL Hematocrit 29.3 % 26.8 % Mean Corpuscular Volume 99.9 FL 101.2 FL Mean Corpuscular Hemoglobin 33.4 PG 33.6 PG Mean Corpuscular Hemoglobin Concent 33.4 % 33.2 % Red Cell Distribution Width 15.1 % 15.2 % Platelet Count 90 TH/MM3 74 TH/MM3 Mean Platelet Volume 9.6 FL 9.7 FL Neutrophils (%) (Auto) 74.4 % 56.2 % Lymphocytes (%) (Auto) 13.2 % 29.1 % Monocytes (%) (Auto) 11.7 % 12.3 % Eosinophils (%) (Auto) 0.4 % 1.9 % Basophils (%) (Auto) 0.3 % 0.5 % Neutrophils # (Auto) 2.2 TH/MM3 1.7 TH/MM3 Lymphocytes # (Auto) 0.4 TH/MM3 0.9 TH/MM3 Monocytes # (Auto) 0.3 TH/MM3 0.4 TH/MM3 Eosinophils # (Auto) 0.0 TH/MM3 0.1 TH/MM3 Basophils # (Auto) 0.0 TH/MM3 0.0 TH/MM3 CBC Comment AUTO DIFF AUTO DIFF Differential Comment AUTO DIFF CONFIRMED AUTO DIFF CONFIRMED Blood Urea Nitrogen 35 MG/DL 32 MG/DL Creatinine 1.29 MG/DL 0.96 MG/DL Random Glucose 330 MG/DL 215 MG/DL Total Protein 7.9 GM/DL 6.7 GM/DL Albumin 2.9 GM/DL 2.5 GM/DL Calcium Level 9.6 MG/DL 8.5 MG/DL Alkaline Phosphatase 294 U/L 227 U/L Aspartate Amino Transf (AST/SGOT) 77 U/L 49 U/L Alanine Aminotransferase (ALT/SGPT) 75 U/L 53 U/L Total Bilirubin 0.5 MG/DL 0.4 MG/DL Sodium Level 138 MEQ/L 139 MEQ/L Potassium Level 4.7 MEQ/L 4.2 MEQ/L Chloride Level 99 MEQ/L 104 MEQ/L Carbon Dioxide Level 31.6 MEQ/L 27.9 MEQ/L Anion Gap 7 MEQ/L 7 MEQ/L Estimat Glomerular Filtration Rate 41 ML/MIN 58 ML/MIN Urine Color YELLOW Urine Turbidity CLEAR Urine pH 6.5 Urine Specific Witten 1.010 Urine Protein 30 mg/dL Urine Glucose (UA) 1000 mg/dL Urine Ketones NEG mg/dL Urine Occult Blood NEG Urine Nitrite NEG Urine Bilirubin NEG Urine Urobilinogen LESS THAN 2.0 MG/DL Urine Leukocyte Esterase MOD Urine RBC 1 /hpf Urine WBC 7 /hpf Urine Squamous Epithelial Cells 1 /hpf Urine Transitional Epithelial Cells 1 /hpf Microscopic Urinalysis Comment CULT NOT INDICATED Troponin I LESS THAN 0.02 NG/ML LESS THAN 0.02 NG/ML Hemoglobin A1c 8.7 % Physical Examination HEENT: Pupils round and reactive to light; normocephalic; atraumatic; no jaundice. Throat is clear. NECK: Neck is supple, no JVD, no lymphadenopathy. CHEST: Chest is clear to auscultation and percussion. CARDIAC: Regular rate and rhythm with no murmur gallop or rubs. ABDOMEN: Soft, nondistended, nontender; no hepatosplenomegaly; bowel sounds are present in all four quadrants. EXTREMITIES: No clubbing, cyanosis, or edema. Left arm and hand dressed with splint. SKIN: Normal; no rash; no jaundice. LEVELER HELPER: No focal deficits; alert and oriented times three. Assessment and Plan Plan Imp: mild dysphagia for pills and solid food, benign characteristics. Routine egd with dilatation of proximal esophagus with savary dilator would be advised. Diabetes with syncopal episode probably due to hypoglycemia. Autoimmune hepatitis. Rec: She will call for appointment with Dr Etienne once she is discharged to home. Routine EGD with esophageal dilatation. Also followup for autoimmune hepatitis. Duarte Rodriguez MD Apr 11, 2017 13:12
[2017-04-11] MEDS ORDERED: INSULIN DETEMIR 100 UNITS/ML VIAL SQ SCH (21:00)
[2017-04-12] VITALS (10 sets, daily range): BP systolic 108–174; BP diastolic 53–79; PULSE 55–80; RESP 16–20; TEMP 97.8–99.1; O2SAT 93–96
[2017-04-12] MEDS: SODIUM CHLOR 0.9% 1000 ML INJ 1,000 ML IV SCH (05:08)
[2017-04-12] MEDS: LEVOTHYROXINE SODIUM 75 MCG TAB PO SCH (06:47)
[2017-04-12] MEDS: INSULIN ASPART SUPPLEMENTAL SCALE SQ SCH ×4 (07:00→21:33)
[2017-04-12] MEDS: CHOLESTYRAMINE 4 GM PACKET PO SCH ×2 (08:26→18:13)
[2017-04-12] MEDS: METOPROLOL TARTRATE 25 MG TAB PO SCH ×2 (08:48→20:44)
[2017-04-12] MEDS: SODIUM CHLORIDE 0.9% FLUSH 10 ML FLUSH IV FLUSH SCH ×2 (08:48→21:31)
[2017-04-12] MEDS: LOSARTAN 50 MG TAB PO SCH (08:48)
[2017-04-12] MEDS: PANTOPRAZOLE SOD 40 MG DELAYED RELEASE TAB PO SCH (08:48)
[2017-04-12] MEDS: NIFEdipine 30 MG SUSTAINED RELEASE TAB PO SCH (08:49)
[2017-04-12] MEDS: predniSONE 5 MG TAB PO SCH (08:49)
[2017-04-12] MEDS: CHOLECALCIFEROL (VIT D3) 1000 UNIT TAB PO SCH (08:49)
[2017-04-12] MEDS: DOCUSATE SODIUM 50 MG/SENNA 8.6 MG TAB PO SCH ×2 (08:50→20:44)
[2017-04-12] MEDS: ASCORBIC ACID 500 MG TAB PO SCH (08:50)
[2017-04-12] MEDS: cloNIDine HCL 0.1 MG TAB PO SCH ×3 (08:50→18:13)
[2017-04-12] MEDS: LACTULOSE SYRUP 20 GM/30 ML CUP PO SCH ×2 (08:50→20:44)
[2017-04-12] MEDS: MERCAPTOPURINE 50 MG TAB PO SCH (08:52)
[2017-04-12] MEDS: INSULIN DETEMIR 100 UNITS/ML VIAL SQ SCH (08:54)
[2017-04-12] MEDS: SERTRALINE HCL 50 MG TAB PO SCH (08:55)
--- NOTE | 2017-04-12 09:10 | HHI.GIFU ---
Subjective Remarks Patient feels fairly well this morning. No complaints of chest pain heartburn or trouble eating her food. Blood sugar and blood pressure have been problems. LFTs are mildly elevated consistent with her autoimmune hepatitis. We will wait on any procedures until her other issues are under control. Objective Vitals I&O Vital Signs Date Time Temp Pulse Resp B/P (MAP) Pulse Ox O2 Delivery O2 Flow Rate FiO2 04/12/17 08:22 20 135/70 (91) 96 04/12/17 04:00 59 04/12/17 03:24 98.2 60 17 138/66 (90) 93 04/12/17 00:00 57 04/11/17 23:42 98.4 56 16 121/56 (77) 96 04/11/17 20:00 59 04/11/17 19:24 98.1 55 16 128/65 (86) 93 04/11/17 16:05 98.6 58 16 113/57 (75) 94 93/55 (68) 89/47 (61) 04/11/17 15:57 60 04/11/17 12:30 98.0 60 16 146/69 (94) 95 04/11/17 09:45 98.2 84 16 119/63 (81) 94 89/55 (66) 94/41 (58) I/O 04/11/17 04/11/17 04/11/17 04/12/17 04/12/17 04/12/17 06:59 14:59 22:59 06:59 14:59 22:59 Intake Total 250 ml 1000 ml Balance 250 ml 1000 ml Intake IV Total 250 ml 1000 ml # Voids 1 3 Physical Exam HEENT: Pupils round and reactive to light; normocephalic; atraumatic; no jaundice. Throat is clear. NECK: Neck is supple, no JVD, no lymphadenopathy. CHEST: Chest is clear to auscultation and percussion. CARDIAC: Regular rate and rhythm with no murmur gallop or rubs. ABDOMEN: Soft, nondistended, nontender; no hepatosplenomegaly; bowel sounds are present in all four quadrants. EXTREMITIES: No clubbing, cyanosis, or edema. Left arm in splint and wrapped. SKIN: Normal; no rash; no jaundice. CIGARETTE SELLER: No focal deficits; alert and oriented times three. Assessment and Plan Plan Imp: mild dysphagia for pills and solid food, benign characteristics. Routine egd with dilatation of proximal esophagus with savary dilator would be advised. Diabetes with syncopal episode probably due to hypoglycemia. Autoimmune hepatitis. Rec: She will call for appointment with Dr Etienne once she is discharged to home. Routine EGD with esophageal dilatation. Also followup for autoimmune hepatitis. Duarte Rodriguez MD Apr 12, 2017 09:10
[2017-04-12] MEDS ORDERED: LEVEMIR SQ ×2 (10:18)
--- NOTE | 2017-04-12 10:19 | HHI.DCPOC ---
Discharge Care Plan Diagnosis: (1) Syncope (2) Dehydration (3) Hypertension (4) Hypotension (5) Hypoglycemia due to insulin (6) Chronic anemia (7) Autoimmune hepatitis (8) Dysphagia Goals to Promote Your Health * To prevent worsening of your condition and complications * To maintain your health at the optimal level Directions to Meet Your Goals Take your medications as prescribed Follow your dietary instruction Follow activity as directed Keep your appointments as scheduled Take your immunizations and boosters as scheduled If your symptoms worsen call your PCP, if no PCP go to Urgent Care Center or Emergency Room Smoking is Dangerous to Your Health. Avoid second hand smoke Call the 24-hour hour crisis hotline for domestic abuse at Lela Raymond PA-C Apr 12, 2017 10:19
--- NOTE | 2017-04-12 10:42 | HHI.PR ---
Subjective Remarks Follow up for syncope. The patient reports feeling better this morning although she did feel slightly nauseous and lightheaded when her blood sugar dropped to 43. Her symptoms now improved with BG 91. She admits she hasn't had a great appetite recently therefore she hasn't been eating her usual meal portions. Denies any recent nausea/vomiting/diarrhea. He dispute resolution analyst has been adjusting her Levemir, recently decreased bedtime levemir from 15u to 12u last month. Overall the patient feels well and ready for discharge. She denies any other medical complaints at this time. Objective Vitals Vital Signs Date Time Temp Pulse Resp B/P (MAP) Pulse Ox O2 Delivery O2 Flow Rate FiO2 04/12/17 08:22 20 135/70 (91) 96 04/12/17 04:00 59 04/12/17 03:24 98.2 60 17 138/66 (90) 93 04/12/17 00:00 57 04/11/17 23:42 98.4 56 16 121/56 (77) 96 04/11/17 20:00 59 04/11/17 19:24 98.1 55 16 128/65 (86) 93 04/11/17 16:05 98.6 58 16 113/57 (75) 94 93/55 (68) 89/47 (61) 04/11/17 15:57 60 04/11/17 12:30 98.0 60 16 146/69 (94) 95 I/O 04/11/17 04/11/17 04/11/17 04/12/17 04/12/17 04/12/17 06:59 14:59 22:59 06:59 14:59 22:59 Intake Total 250 ml 1000 ml 100 ml Balance 250 ml 1000 ml 100 ml Intake IV Total 250 ml 1000 ml 100 ml # Voids 1 3 Result Diagram: 04/11/17 0707 04/11/17 0707 Imaging Last Impressions Wrist X-Ray 04/10/17 0000 Signed Impressions: Service Date/Time: Monday, April 10, 2017 18:16 - CONCLUSION: No acute abnormality is seen. There is degenerative change at the first carpometacarpal joint and osteopenia. Yayo Hall MD Head CT 04/10/17 0000 Signed Impressions: Service Date/Time: Monday, April 10, 2017 18:42 - CONCLUSION: Normal examination. Yayo Hall MD Chest CT 04/10/17 0000 Signed Impressions: Service Date/Time: Monday, April 10, 2017 18:46 - CONCLUSION: 1. No definite acute abnormality seen. 2. Chronic appearing interstitial disease of the lower lobes the more proximal right. 3. Cirrhotic appearing liver. The spleen appears enlarged. 4. Coronary artery calcification. Yayo Hall MD Objective Remarks GENERAL: Well-nourished, well-developed pleasant elderly female patient in NAD. SKIN: Warm and dry. No rash. HEENT: Normocephalic. Atraumatic.Pupils equal and round. Mucous membranes pink and moist. NECK: Supple. Trachea midline. CARDIOVASCULAR: Regular rate and rhythm. S1, S2 noted. No murmur appreciated. RESPIRATORY: No accessory muscle use. Clear to auscultation. Breath sounds equal bilaterally. GASTROINTESTINAL: Abdomen soft, non-tender, nondistended. Normoactive bowel sounds x4. MUSCULOSKELETAL: No obvious deformities. Extremities without clubbing, cyanosis , or edema. NEUROLOGICAL: Awake and alert. No obvious cranial nerve deficits. Motor grossly within normal limits. Normal speech. PSYCHIATRIC: Appropriate mood and affect; insight and judgment normal. Medications and IVs Current Medications Medications (Trade) Dose Ordered Sig/Miranda Route Start Time Stop Time Status Last Admin (NS Flush) 2 ml UNSCH PRN IV FLUSH 04/10/17 21:00 (NS Flush) 2 ml BID IV FLUSH 04/10/17 21:00 04/10/17 21:24 (Zofran Inj) 4 mg Q6H PRN IVP 04/10/17 21:00 04/11/17 09:21 (Tylenol) 650 mg Q6H PRN PO 04/10/17 21:00 ([place] 5-325 Mg) 1 tab Q4H PRN PO 04/10/17 21:00 ([place] 10-325 Mg) 1 tab Q4H PRN PO 04/10/17 21:00 04/11/17 00:07 (Sherlyn-Colace) 1 tab BID PO 04/10/17 21:00 04/12/17 08:50 (Milk Of Magnesia Liq) 30 ml Q12H PRN PO 04/10/17 21:00 (Senokot) 17.2 mg Q12H PRN PO 04/10/17 21:00 (Dulcolax Supp) 10 mg DAILY PRN RECTAL 04/10/17 21:00 (Lactulose Liq) 30 ml DAILY PRN PO 04/10/17 21:00 (Lidoderm 5% Patch.12 Hr) 1 patch DAILY PRN T-DERMAL 04/10/17 21:45 (D50w (Vial) Inj) 50 ml UNSCH PRN IV 04/10/17 21:45 (Glucagon Inj) 1 mg UNSCH PRN OTHER 04/10/17 21:45 (NovoLOG SUPPLEMENTAL SCALE) 1 ACHS SLIDING SCALE SQ 04/11/17 07:00 04/11/17 23:24 (Vitamin D3) 1,000 units DAILY PO 04/11/17 09:00 04/12/17 08:49 (Questran 4 Gm Pkt) 4 gm BID@0600,1800 PO 04/11/17 06:00 04/12/17 08:26 (Catapres) 0.1 mg TID PO 04/11/17 09:00 04/12/17 08:50 (Lasix) 20 mg DAILY PO 04/11/17 09:00 Future Hold 04/11/17 08:28 (Levemir Inj) 12 units HS SQ 04/11/17 21:00 04/11/17 23:24 (Levemir Inj) 25 units DAILY SQ 04/11/17 09:00 04/11/17 08:37 (Synthroid) 75 mcg DAILY@0600 PO 04/11/17 06:00 04/12/17 06:47 (Cozaar) 100 mg DAILY PO 04/11/17 09:00 04/12/17 08:48 (Purinethol) 50 mg DAILY PO 04/11/17 09:00 04/12/17 08:52 (Lopressor) 25 mg Q12HR PO 04/11/17 09:00 04/12/17 08:48 (Procardia Xl) 30 mg DAILY PO 04/11/17 09:00 04/12/17 08:49 (Protonix) 40 mg DAILY PO 04/11/17 09:00 04/12/17 08:48 (Deltasone) 5 mg DAILY PO 04/11/17 09:00 04/12/17 08:49 (Zoloft) 50 mg DAILY PO 04/11/17 09:00 04/12/17 08:55 (Vitamin C) 500 mg DAILY PO 04/11/17 09:00 04/12/17 08:50 (Lactulose Liq) 30 ml BID PO 04/11/17 09:00 04/12/17 08:50 A/P Problem List: (1) Syncope ICD Code: R55 - Syncope and collapse Status: Acute (2) OSVALDO (acute kidney injury) ICD Code: N17.9 - Acute kidney failure, unspecified Status: Acute (3) Rib pain ICD Code: R07.81 - Pleurodynia (4) Wrist pain ICD Code: M25.539 - Pain in unspecified wrist (5) HTN (hypertension) ICD Code: I10 - Essential (primary) hypertension (6) Autoimmune hepatitis ICD Code: K75.4 - Autoimmune hepatitis Status: Chronic (7) DM (diabetes mellitus) ICD Code: E11.9 - Type 2 diabetes mellitus without complications Status: Chronic Assessment and Plan 66-year-old female with a PMH of HTN, Autoimmune Hepatitis, Cirrhosis, DM, Anxiety, Depression and RBBB who presented after syncopal event Syncope: +lightheadedness/dizziness followed by syncopal event, likely secondary to labile BP, orthostatic hypotension, in combination with dehydration /OSVALDO. Reviewed: CT Head w/ no acute findings. Echo 03/05/16 w/ EF 65%, normal LV function. Patient also reports outpatient nuclear stress test this past year with Dr. Giron which was reportedly unremarkable. -Monitor on telemetry, no acute findings -IVF for hydration. -Orthostatics positive, d/c lasix and nifedipine, given IVF and hali hose, counseled on slow transitions from lying to sitting to standing -PT eval, no PT needed at discharge Fall: Secondary to syncope as above. Patient was having right rib pain and left wrist pain. Reviewed: CT Chest w/ no acute findings. Wrist X-ray w/ no acute abnormality seen, degenerative change at first carpometacarpal joint and osteopenia -Lidoderm patch -Analgesics as needed. -Wrist splint placed in the ED OSVALDO: acute dehydration with chronic kidney disease. Creatinine 1.29, previously 1.17 on 01/22/17. -Given IVF, repeat BMP improved with Cr 0.96. HTN: extremely labile BP with +orthostatics -Continue home antihypertensives including clonidine, losartan, metoprolol; d/c lasix and nifedipine -Monitor and adjust regimen as needed -BP improved Autoimmune Hepatitis: Chronic. Stable LFTs stable in comparison to previous. -On chronic steroid therapy, will resume home Prednisone. DM: Very labile blood sugars, BS 330 on arrival, decreased to 40s overnight. -Continued home Levemir however adjusted dosing, decreased morning dose from 25u to 20u and discontinued evening dose. -Sliding scale w/ Accu-Cheks. -hemoglobin A1c 8.7 -outpatient f/up with her dispute resolution analyst at [facility] Dysphagia/Nausea and vomiting: Occasional difficulty swallowing larger pills. -Swallow eval -Antiemetics as needed -Consult patient's photography editor, recommends outpatient EGD with dilatation DVT Prophylaxis: SCD/Teds Discharge Planning 1040hrs: Likely discharge later today if BG and BP improves. Discussed with RN. 1620hrs: Blood glucose 350. Medications adjusted. Will hold discharge tonight. Problem Qualifiers (1) Syncope: Qualified Codes: R55 - Syncope and collapse (2) Wrist pain: Qualified Codes: M25.532 - Pain in left wrist (3) HTN (hypertension): Qualified Codes: I10 - Essential (primary) hypertension Lela Raymond PA-C Apr 12, 2017 10:42
[2017-04-12 12:47] LABS: AUTOMATED NEUTROPHIL # 2.6 TH/MM3 (1.8-7.7); BASOPHIL % 0.6 % (0.0-2.0); EOSINOPHIL % 1.1 % (0.0-4.0); HEMATOCRIT 25.4 % (35.0-46.0); LYMPH % 15.9 % (9.0-44.0); LYMPHOCYTE # 0.6 TH/MM3 (1.0-4.8); MEAN CORPUSCULAR HGB CONC 34.3 % (32.0-36.0); MONO % 12.4 % (0.0-8.0); PLATELET COUNT 75 TH/MM3 (150-450); RED BLOOD COUNT 2.49 MIL/MM3 (4.00-5.30); RED CELL DISTRIBUTION WIDTH 15.3 % (11.6-17.2); WHITE BLOOD COUNT 3.8 TH/MM3 (4.0-11.0)
[2017-04-12 12:49] LABS: HEMO FLAGS AUTO DIFF
[2017-04-12 13:17] LABS: BICARBONATE 23.4 MEQ/L (21.0-32.0)
[2017-04-12 13:25] LABS: POTASSIUM 5.9 MEQ/L (3.5-5.1)
[2017-04-12 13:26] LABS: PLATELET ESTIMATE SMEAR LOW (NORMAL); PLATELET MORPHOLOGY NORMAL (NORMAL); SCAN/DIFF AUTO DIFF CONFIRMED
[2017-04-12] MEDS ORDERED: INSULIN DETEMIR 100 UNITS/ML VIAL SQ ONE (14:00)
[2017-04-12] MEDS ORDERED: INSULIN DETEMIR 100 UNITS/ML VIAL SQ SCH (21:00)
[2017-04-13] VITALS (9 sets, daily range): BP systolic 130–180; BP diastolic 60–84; PULSE 55–75; RESP 16–18; TEMP 98.3–98.5; O2SAT 94–99
[2017-04-13] MEDS: INSULIN ASPART SUPPLEMENTAL SCALE SQ SCH ×4 (07:00→21:00)
[2017-04-13] MEDS: LEVOTHYROXINE SODIUM 75 MCG TAB PO SCH (07:15)
[2017-04-13] MEDS: CHOLESTYRAMINE 4 GM PACKET PO SCH ×2 (07:15→18:00)
[2017-04-13 08:04] LABS: BICARBONATE 24.6 MEQ/L (21.0-32.0); POTASSIUM 4.2 MEQ/L (3.5-5.1)
--- NOTE | 2017-04-13 08:21 | HHI.DS ---
Discharge Summary Admission Date Apr 10, 2017 at 8:52 pm Discharge Date: Apr 13, 2017 Admitting Diagnosis syncope (1) Syncope ICD Code: R55 - Syncope and collapse Status: Acute (2) OSVALDO (acute kidney injury) ICD Code: N17.9 - Acute kidney failure, unspecified Status: Acute (3) Rib pain ICD Code: R07.81 - Pleurodynia (4) Wrist pain ICD Code: M25.539 - Pain in unspecified wrist (5) HTN (hypertension) ICD Code: I10 - Essential (primary) hypertension (6) Autoimmune hepatitis ICD Code: K75.4 - Autoimmune hepatitis Status: Chronic (7) DM (diabetes mellitus) ICD Code: E11.9 - Type 2 diabetes mellitus without complications Status: Chronic Procedures None. Brief History - From Admission This is a 66-year-old female with a PMH of HTN, Autoimmune Hepatitis, Cirrhosis , DM, Anxiety, Depression and RBBB who was brought to the ER after syncopal event. Pt reports she felt sudden onset of lightheadedness, states she "knows when my blood sugar is off", reports lightheadedness and diaphoresis w/ low blood sugar and states "knees buckle" when her blood sugar is high. States she went to the kitchen to get orange juice thinking her BS was low when she had acute syncopal episode, approx few minutes, found by granddaughter. Pt w/ c/o left elbow pain and rib pain. On arrival, BP 133/62, HR 63, O2 sat 98% on RA, Afebrile. CBC at baseline in comparison to previous labs from 01/22/17 and back. Creatinine 1.29, previously 1.17 on 01/22/17. BS 330. LFTs mildly elevated, similar in comparison to previous labs. CT Chest with no acute findings, cirrhotic-appearing liver. CT Head normal. Wrist X-ray with no acute abnormality. CBC/BMP: 04/12/17 1140 04/13/17 0700 Significant Findings Laboratory Tests Test 04/10/17 14:28 04/11/17 00:10 9/2/17 00:15 04/11/17 07:07 White Blood Count 2.9 TH/MM3 (4.0-11.0) 3.1 TH/MM3 (4.0-11.0) Red Blood Count 2.93 MIL/MM3 (4.00-5.30) 2.65 MIL/MM3 (4.00-5.30) Hemoglobin 9.8 GM/DL (11.6-15.3) 8.9 GM/DL (11.6-15.3) Hematocrit 29.3 % (35.0-46.0) 26.8 % (35.0-46.0) Platelet Count 90 TH/MM3 (150-450) 74 TH/MM3 (150-450) Neutrophils (%) (Auto) 74.4 % (16.0-70.0) Monocytes (%) (Auto) 11.7 % (0.0-8.0) 12.3 % (0.0-8.0) Lymphocytes # (Auto) 0.4 TH/MM3 (1.0-4.8) 0.9 TH/MM3 (1.0-4.8) Blood Urea Nitrogen 35 MG/DL (7-18) 32 MG/DL (7-18) Creatinine 1.29 MG/DL (0.50-1.00) Random Glucose 330 MG/DL (74-106) 215 MG/DL (74-106) Albumin 2.9 GM/DL (3.4-5.0) 2.5 GM/DL (3.4-5.0) Alkaline Phosphatase 294 U/L (45-117) 227 U/L (45-117) Aspartate Amino Transf (AST/SGOT) 77 U/L (15-37) 49 U/L (15-37) Alanine Aminotransferase (ALT/SGPT) 75 U/L (10-53) Estimat Glomerular Filtration Rate 41 ML/MIN (>89) 58 ML/MIN (>89) Urine Protein 30 mg/dL (NEG-TRACE) Urine Glucose (UA) 1000 mg/dL (NEG) Urine Leukocyte Esterase MOD (NEG) Urine WBC 7 /hpf (0-5) Troponin I LESS THAN 0.02 NG/ML LESS THAN 0.02 NG/ML Mean Corpuscular Volume 101.2 FL (80.0-100.0) Neutrophils # (Auto) 1.7 TH/MM3 (1.8-7.7) Hemoglobin A1c 8.7 % (4.3-6.0) Test 04/12/17 11:40 04/13/17 07:00 White Blood Count 3.8 TH/MM3 (4.0-11.0) Red Blood Count 2.49 MIL/MM3 (4.00-5.30) Hemoglobin 8.7 GM/DL (11.6-15.3) Hematocrit 25.4 % (35.0-46.0) Mean Corpuscular Volume 102.0 FL (80.0-100.0) Mean Corpuscular Hemoglobin 35.0 PG (27.0-34.0) Platelet Count 75 TH/MM3 (150-450) Monocytes (%) (Auto) 12.4 % (0.0-8.0) Lymphocytes # (Auto) 0.6 TH/MM3 (1.0-4.8) Platelet Estimate LOW (NORMAL) Blood Urea Nitrogen 32 MG/DL (7-18) 29 MG/DL (7-18) Creatinine 1.09 MG/DL (0.50-1.00) Random Glucose 266 MG/DL (74-106) 65 MG/DL (74-106) Sodium Level 135 MEQ/L (136-145) Potassium Level 5.9 MEQ/L (3.5-5.1) Estimat Glomerular Filtration Rate 50 ML/MIN (>89) 73 ML/MIN (>89) Chloride Level 110 MEQ/L (98-107) Imaging Last Impressions Wrist X-Ray 04/10/17 0000 Signed Impressions: Service Date/Time: Monday, April 10, 2017 18:16 - CONCLUSION: No acute abnormality is seen. There is degenerative change at the first carpometacarpal joint and osteopenia. Yayo Hall MD Head CT 04/10/17 0000 Signed Impressions: Service Date/Time: Monday, April 10, 2017 18:42 - CONCLUSION: Normal examination. Yayo Hall MD Chest CT 04/10/17 0000 Signed Impressions: Service Date/Time: Monday, April 10, 2017 18:46 - CONCLUSION: 1. No definite acute abnormality seen. 2. Chronic appearing interstitial disease of the lower lobes the more proximal right. 3. Cirrhotic appearing liver. The spleen appears enlarged. 4. Coronary artery calcification. Yayo Hall MD PE at Discharge GENERAL: Well-nourished, well-developed pleasant elderly female patient in [employer]. SKIN: Warm and dry. No rash. HEENT: Normocephalic. Atraumatic.Pupils equal and round. Mucous membranes pink and moist. NECK: Supple. Trachea midline. CARDIOVASCULAR: Regular rate and rhythm. S1, S2 noted. No murmur appreciated. RESPIRATORY: No accessory muscle use. Clear to auscultation. Breath sounds equal bilaterally. GASTROINTESTINAL: Abdomen soft, non-tender, nondistended. Normoactive bowel sounds x4. MUSCULOSKELETAL: No obvious deformities. Extremities without clubbing, cyanosis , or edema. NEUROLOGICAL: Awake and alert. No obvious cranial nerve deficits. Motor grossly within normal limits. Normal speech. PSYCHIATRIC: Appropriate mood and affect; insight and judgment normal. Pt update on day of discharge The patient feels well today. Denies any lightheadedness, dizziness, chest pain , palpitations, shortness of breath, or abdominal complaints. She feels ready to go home. Hospital Course 66-year-old female with a PMH of HTN, Autoimmune Hepatitis, Cirrhosis, DM, Anxiety, Depression and RBBB who presented after syncopal event Syncope: +lightheadedness/dizziness followed by syncopal event, likely secondary to labile BP, orthostatic hypotension, in combination with dehydration /OSVALDO. CT Head w/ no acute findings. Echo 03/05/16 w/ EF 65%, normal LV function. Patient also had outpatient nuclear stress test this past year with Dr. Giron which was reportedly unremarkable. Monitored on telemetry, no acute findings. Given IVF for hydration. Orthostatics positive, d/c lasix and nifedipine, given IVF and hali hose, counseled on slow transitions from lying to sitting to standing. PT eval, no PT needed at discharge. Orthostatics improved and patient's symptoms resolved. Fall: Secondary to syncope as above. Patient was having right rib pain and left wrist pain. CT Chest w/ no acute findings. Wrist X-ray w/ no acute abnormality seen, degenerative change at first carpometacarpal joint and osteopenia. Lidoderm patch. Analgesics as needed. Wrist splint placed in the ED. Pain well controlled. OSVALDO: acute dehydration with chronic kidney disease. Creatinine 1.29, previously 1.17 on 01/22/17. Given IVF, repeat BMP improved with Cr 0.79. HTN: extremely labile BP with +orthostatics. Continued home antihypertensives including clonidine, losartan, metoprolol; d/c lasix and nifedipine. BP improved. Autoimmune Hepatitis: Chronic. Stable LFTs stable in comparison to previous. On chronic steroid therapy, will resume home Prednisone. DM: Very labile blood sugars, BS 330 on arrival, decreased to 40s overnight. Continued home Levemir however adjusted dosing, decreased morning dose from 25u to 20u and discontinued evening dose. HgbA1c 8.7. Outpatient f/up with her cushion spring assembler at [facility]. Dysphagia/Nausea/vomiting: Occasional difficulty swallowing larger pills. Consult patient's diesel powerplant mechanic helper (Dr. Etienne), seen by Dr. Rodriguez, recommends outpatient EGD with dilatation. Pt Condition on Discharge: Stable Discharge Disposition: Discharge Home Discharge Time: > 30 minutes Discharge Instructions DIET: Follow Instructions for: Heart Healthy Diet, Diabetic Diet Activities you can perform: Regular-No Restrictions Follow up Referrals: Cardiology - 2 Weeks with Kaye Giron MD Endocrinology - 2 Weeks Gastroenterology - 1 Week with Cuong Etienne MD PCP Follow-up - 2-3 Days with Luis Clark Do Changed Medications: Insulin Detemir Inj (Levemir Inj) 1,000 unit/ 10 ML Vial 20 UNITS SQ DAILY for Blood Sugar Management for 30 Days, INJECTION (Changed from: 25 UNITS) Continued Medications: Ascorbic Acid (C-500) 500 Mg Tab.chew 500 MG PO DAILY for Nutritional Supplement Cholestyramine (Cholestyramine) 4 Gm/Dose Powd 4 GM PO BID for Dyslipidemia, #1 CAN 0 Refills 1 level scoopful of powder contains 4 grams of cholestyramine. Clonidine (Clonidine) 0.1 Mg Tab 0.1 MG PO TID for Blood Pressure Management, #60 TAB 0 Refills Insulin Aspart Inj (Novolog Inj) 1,000 Unit/10 Ml Vial 0 SQ DIRECTED for Blood Sugar Management, #10 ML 0 Refills Sliding Scale as directed. Lactulose (Encephalopathy) Liq (Enulose Liq) 10 Gm/15 Ml Soln 20 GM PO BID Levothyroxine (Levothyroxine) 75 Mcg Tab 75 MCG PO DAILY for Thyroid, #30 TAB 0 Refills Losartan (Losartan) 100 Mg Tab 100 MG PO DAILY for Blood Pressure Management, #30 TAB 0 Refills Mercaptopurine (Mercaptopurine) 50 Mg Tab 50 MG PO DAILY for Chemotherapy Management, TAB 0 Refills Metoprolol Tartrate (Metoprolol Tartrate) 25 Mg Tab 25 MG PO Q12HR for Blood Pressure Management, #60 TAB Pantoprazole (Pantoprazole) 40 Mg Tab 40 MG PO DAILY for gastric protection, #30 TAB Prednisone (Prednisone) 5 Mg Tab 5 MG PO DAILY, TAB 0 Refills Sertraline (Zoloft) 50 Mg Tab 50 MG PO DAILY, #90 TAB 1 Refill Discontinued Medications: Furosemide (Lasix) 20 Mg Tab 20 MG PO DAILY, #30 TAB 0 Refills Insulin Detemir Inj (Levemir Inj) 1,000 unit/ 10 ML Vial 10 UNITS SQ HS for Blood Sugar Management for 30 Days, VIAL 0 Refills Do not mix with any other Insulin. Nifedipine ER 24 HR (Nifedipine ER 24 HR) 30 Mg Tab 30 MG PO DAILY for blood pressure for 30 Days, TAB Additional Information ADDENDUM: Discharge held on 04/13 due to significantly uncontrolled blood sugars, increased to 589 in the afternoon. Given IVF bolus, 10u sq insulin, and increased daily levemir to 30u in am. Discharge canceled. Please use this note as progress note for 04/13, and refer to discharge summary from Dr. Mittal. Lela Raymond PA-C Apr 13, 2017 08:21
[2017-04-13] MEDS: METOPROLOL TARTRATE 25 MG TAB PO SCH ×2 (09:00→20:34)
[2017-04-13] MEDS ORDERED: INSULIN DETEMIR 100 UNITS/ML VIAL SQ SCH (09:00)
[2017-04-13] MEDS: LACTULOSE SYRUP 20 GM/30 ML CUP PO SCH ×2 (11:10→20:34)
[2017-04-13] MEDS: SERTRALINE HCL 50 MG TAB PO SCH (11:11)
[2017-04-13] MEDS: ASCORBIC ACID 500 MG TAB PO SCH (11:11)
[2017-04-13] MEDS: CHOLECALCIFEROL (VIT D3) 1000 UNIT TAB PO SCH (11:11)
[2017-04-13] MEDS: DOCUSATE SODIUM 50 MG/SENNA 8.6 MG TAB PO SCH ×2 (11:11→20:34)
[2017-04-13] MEDS: PANTOPRAZOLE SOD 40 MG DELAYED RELEASE TAB PO SCH (11:11)
[2017-04-13] MEDS: LOSARTAN 50 MG TAB PO SCH (11:11)
[2017-04-13] MEDS: cloNIDine HCL 0.1 MG TAB PO SCH ×3 (11:11→18:41)
[2017-04-13] MEDS: predniSONE 5 MG TAB PO SCH (11:12)
[2017-04-13] MEDS: SODIUM CHLORIDE 0.9% FLUSH 10 ML FLUSH IV FLUSH SCH ×2 (11:12→20:39)
[2017-04-13] MEDS: MERCAPTOPURINE 50 MG TAB PO SCH (11:13)
[2017-04-13] MEDS: INSULIN ASPART 1,000 UNITS/10 ML VIAL SQ SCH (17:00)
[2017-04-13] MEDS ORDERED: INSULIN ASPART 1,000 UNITS/10 ML VIAL SQ ONE (18:45)
[2017-04-13] MEDS ORDERED: SODIUM CHLOR 0.9% 1000 ML INJ 1,000 ML IV ONE (18:45)
[2017-04-13 21:55] LABS: BICARBONATE 20.4 MEQ/L (21.0-32.0)
[2017-04-13 21:56] LABS: POTASSIUM 6.4 MEQ/L (3.5-5.1)
[2017-04-13] MEDS ORDERED: INSULIN HUMAN REGULAR 1,000 UNITS/10 ML VIAL IV PUSH ONE (23:00)
[2017-04-13] MEDS ORDERED: POTASSIUM CHLOR 40 MEQ PREMIX 100 ML IV PRN ×2 (23:00)
[2017-04-13] MEDS ORDERED: MISCELLANEOUS NURSING INFORMATION XX SCH (23:00)
[2017-04-13] MEDS ORDERED: SODIUM BICARBONATE 8.4% SOLN 50 MEQ/50 ML VIAL IV PRN ×2 (23:00)
[2017-04-13] MEDS ORDERED: INSULIN REGULAR (IV INFUSION) 100 UNITS in SODIUM CHLORIDE 0.9% INJ 99 ML IV SCH (23:00)
[2017-04-13] MEDS ORDERED: POTASSIUM CHLOR 20 MEQ PREMIX 100 ML IV PRN ×6 (23:00)
[2017-04-13] MEDS ORDERED: CHLORHEXIDINE GLUCONATE 2 % 1 PACK (2 CLOTHS) TOP PRN (23:00)
[2017-04-13] MEDS ORDERED: SODIUM PHOSPHATE INJ 15 MMOL in SODIUM CHLORIDE 0.9% INJ 100 ML IV PRN (23:00)
[2017-04-13 23:52] LABS: ALKALINE PHOSPHATASE 237 U/L (45-117); ALT (GPT) 45 U/L (10-53); ANION GAP 9 MEQ/L (5-15); AST (GOT) 43 U/L (15-37); BETA-HYDROXYBUTYRATE 0.64 MMOL/L (0.00-0.39); BICARBONATE 20.6 MEQ/L (21.0-32.0); BLOOD UREA NITROGEN 36 MG/DL (7-18); CHLORIDE 100 MEQ/L (98-107); GLOMERULAR FILTRATION RATE 35 ML/MIN (>89); POTASSIUM 5.9 MEQ/L (3.5-5.1); SODIUM (NA) 130 MEQ/L (136-145); TOTAL BILIRUBIN ADULT 0.7 MG/DL (0.2-1.0)
[2017-04-14] VITALS (22 sets, daily range): BP systolic 106–193; BP diastolic 53–85; PULSE 52–67; RESP 12–24; TEMP 97.8–100; O2SAT 95–97
[2017-04-14] MEDS: ONDANSETRON HCL 4 MG/2 ML VIAL IVP PRN ×3 (00:39→17:25)
[2017-04-14] MEDS: SODIUM CHLOR 0.9% 1000 ML INJ 1,000 ML IV SCH ×7 (01:32→22:48)
[2017-04-14] MEDS: CHLORHEXIDINE GLUCONATE 2 % 1 PACK (2 CLOTHS) TOP SCH ×2 (02:21→20:26)
[2017-04-14] MEDS: ACETAMINOPHEN 325 MG TAB PO PRN (02:21)
[2017-04-14] MEDS: hydrALAZINE HCL 20 MG/ML VIAL IV PRN (02:55)
[2017-04-14] MEDS: DEXT 5%-NACL 0.9% 1000 ML INJ 1,000 ML IV SCH ×4 (04:00→13:48)
[2017-04-14 04:49] LABS: BICARBONATE 21.8 MEQ/L (21.0-32.0); MAGNESIUM 1.9 MG/DL (1.5-2.5); POTASSIUM 4.3 MEQ/L (3.5-5.1)
[2017-04-14] MEDS: LEVOTHYROXINE SODIUM 75 MCG TAB PO SCH (05:15)
[2017-04-14] MEDS: CHOLESTYRAMINE 4 GM PACKET PO SCH ×2 (05:21→18:50)
[2017-04-14] MEDS: INSULIN ASPART SUPPLEMENTAL SCALE SQ SCH ×4 (07:00→20:24)
[2017-04-14] MEDS: INSULIN ASPART 1,000 UNITS/10 ML VIAL SQ SCH ×3 (08:00→17:00)
[2017-04-14] MEDS: CHOLECALCIFEROL (VIT D3) 1000 UNIT TAB PO SCH (08:40)
[2017-04-14] MEDS: LOSARTAN 50 MG TAB PO SCH (08:40)
[2017-04-14] MEDS: predniSONE 5 MG TAB PO SCH (08:40)
[2017-04-14] MEDS: SERTRALINE HCL 50 MG TAB PO SCH (08:40)
[2017-04-14] MEDS: METOPROLOL TARTRATE 25 MG TAB PO SCH ×2 (08:40→20:24)
[2017-04-14] MEDS: PANTOPRAZOLE SOD 40 MG DELAYED RELEASE TAB PO SCH (08:40)
[2017-04-14] MEDS: cloNIDine HCL 0.1 MG TAB PO SCH ×3 (08:40→17:25)
[2017-04-14] MEDS: DOCUSATE SODIUM 50 MG/SENNA 8.6 MG TAB PO SCH ×2 (08:40→20:24)
[2017-04-14] MEDS: ASCORBIC ACID 500 MG TAB PO SCH (08:41)
[2017-04-14] MEDS: SODIUM CHLORIDE 0.9% FLUSH 10 ML FLUSH IV FLUSH SCH ×2 (08:41→20:24)
[2017-04-14] MEDS: INSULIN DETEMIR 100 UNITS/ML VIAL SQ SCH (08:42)
[2017-04-14] MEDS: LACTULOSE SYRUP 20 GM/30 ML CUP PO SCH ×2 (09:07→20:23)
[2017-04-14 13:08] LABS: BICARBONATE 20.2 MEQ/L (21.0-32.0); POTASSIUM 4.2 MEQ/L (3.5-5.1)
[2017-04-14 13:12] LABS: BETA-HYDROXYBUTYRATE 0.16 MMOL/L (0.00-0.39)
[2017-04-14] MEDS: MERCAPTOPURINE 50 MG TAB PO SCH (14:23)
[2017-04-14] MEDS: ACETAMINOPHEN/HYDROcodone 325 MG/10 MG TAB PO PRN (16:37)
[2017-04-14 17:37] LABS: BICARBONATE 20.1 MEQ/L (21.0-32.0); POTASSIUM 4.8 MEQ/L (3.5-5.1)
[2017-04-14 22:00] LABS: BICARBONATE 21.1 MEQ/L (21.0-32.0); MAGNESIUM 2.1 MG/DL (1.5-2.5)
[2017-04-14 22:01] LABS: BETA-HYDROXYBUTYRATE 0.18 MMOL/L (0.00-0.39)
--- NOTE | 2017-04-14 23:21 | HHI.PR ---
Subjective Remarks Patient seen this morning around 10 AM. Patient says she is feeling all right. Denies any chest pain or shortness of breath. He has some nausea last night, threw up her dinner. Denies any blood in emesis. Says she is feeling all right now. Denies any nausea currently. Feels like eating. Objective Vital Signs Date Time Temp Pulse Resp B/P (MAP) Pulse Ox O2 Delivery O2 Flow Rate FiO2 04/14/17 22:00 56 04/14/17 22:00 56 13 140/67 (91) 95 04/14/17 21:00 54 13 132/58 (82) 96 04/14/17 20:00 53 04/14/17 20:00 98.5 53 14 121/57 (78) 96 04/14/17 19:00 52 13 106/53 (70) 96 04/14/17 18:00 59 04/14/17 16:00 97.8 59 18 150/69 (96) 95 04/14/17 16:00 59 04/14/17 14:00 56 04/14/17 12:00 57 04/14/17 12:00 98.7 57 17 133/66 (88) 95 04/14/17 10:00 60 04/14/17 08:00 98.2 62 13 153/65 (94) 96 04/14/17 08:00 62 04/14/17 06:00 63 04/14/17 05:00 63 18 121/60 (80) 97 04/14/17 04:30 63 18 95 04/14/17 04:00 98.7 64 18 112/54 (73) 96 04/14/17 04:00 64 04/14/17 03:31 26 04/14/17 03:30 64 18 96 04/14/17 03:00 60 20 135/63 (87) 97 04/14/17 02:30 60 19 97 04/14/17 02:01 62 20 181/72 (108) 96 04/14/17 02:00 62 04/14/17 02:00 62 20 97 04/14/17 01:25 100.0 67 24 193/85 (121) 96 04/14/17 00:08 98.2 64 16 174/70 (104) 95 I/O 9/5/17 9/12/2404/14/17 04/15/17 04/15/17 04/15/17 07:00 15:00 23:00 07:00 15:00 23:00 Intake Total 120 ml 1450 ml 720 ml Balance 120 ml 1450 ml 720 ml Intake Oral 120 ml 720 ml IV Total 1450 ml # Voids 1 3 # Bowel Movements 1 Result Diagram: 04/12/17 1140 04/14/172117 Objective Remarks GENERAL: patient sitting up in bed. Appears comfortable. SKIN: Warm and dry. HEAD: Normocephalic. EYES: No scleral icterus. No injection or drainage. NECK: Supple, trachea midline. No JVD or lymphadenopathy. CARDIOVASCULAR: Regular rate and rhythm without murmurs, gallops, or rubs. RESPIRATORY: Breath sounds equal bilaterally. No accessory muscle use. GASTROINTESTINAL: Abdomen soft, non-tender, nondistended. MUSCULOSKELETAL: No cyanosis, or edema. BACK: Nontender without obvious deformity. No CVA tenderness. A/P Assessment and Plan == 04/14/17. Hyperglycemia last night in the 700s improved after insulin drip. We will discontinue insulin drip. Start Levemir 30 this morning, insulin sliding scale. 66-year-old female with a PMH of HTN, Autoimmune Hepatitis, Cirrhosis, DM, Anxiety, Depression and RBBB who presented after syncopal event Syncope: +lightheadedness/dizziness followed by syncopal event, likely secondary to labile BP, orthostatic hypotension, in combination with dehydration /OSVALDO. Reviewed: CT Head w/ no acute findings. Echo 03/05/16 w/ EF 65%, normal LV function. Patient also reports outpatient nuclear stress test this past year with Dr. Giron which was reportedly unremarkable. -Monitor on telemetry, no acute findings -IVF for hydration. -Orthostatics positive, d/c lasix and nifedipine, given IVF and hali hose, counseled on slow transitions from lying to sitting to standing -PT eval, no PT needed at discharge Fall: Secondary to syncope as above. Patient was having right rib pain and left wrist pain. Reviewed: CT Chest w/ no acute findings. Wrist X-ray w/ no acute abnormality seen, degenerative change at first carpometacarpal joint and osteopenia -Lidoderm patch -Analgesics as needed. -Wrist splint placed in the ED OSVALDO: acute dehydration with chronic kidney disease. Creatinine 1.29, previously 1.17 on 01/22/17. -Given IVF, repeat BMP improved with Cr 0.96. HTN: extremely labile BP with +orthostatics -Continue home antihypertensives including clonidine, losartan, metoprolol; d/c lasix and nifedipine -Monitor and adjust regimen as needed -BP improved Autoimmune Hepatitis: Chronic. Stable LFTs stable in comparison to previous. -On chronic steroid therapy, will resume home Prednisone. DM: Very labile blood sugars, BS 330 on arrival, decreased to 40s overnight. -Continued home Levemir however adjusted dosing, decreased morning dose from 25u to 20u and discontinued evening dose. -Sliding scale w/ Accu-Cheks. -hemoglobin A1c 8.7 -outpatient f/up with her comparator operator at [facility] Dysphagia/Nausea and vomiting: Occasional difficulty swallowing larger pills. -Swallow eval -Antiemetics as needed -Consult patient's autographer, recommends outpatient EGD with dilatation DVT Prophylaxis: SCD/Teds Ayden Mittal MD Apr 14, 2017 23:21
[2017-04-15] VITALS (15 sets, daily range): BP systolic 109–171; BP diastolic 55–78; PULSE 50–81; RESP 11–19; TEMP 97.9–99.3; O2SAT 93–97
[2017-04-15] MEDS: ACETAMINOPHEN/HYDROcodone 325 MG/10 MG TAB PO PRN ×2 (01:44→07:31)
[2017-04-15] MEDS: hydrALAZINE HCL 20 MG/ML VIAL IV PRN (01:44)
[2017-04-15] MEDS: ONDANSETRON HCL 4 MG/2 ML VIAL IVP PRN ×2 (02:15→07:33)
[2017-04-15] MEDS: SODIUM CHLOR 0.9% 1000 ML INJ 1,000 ML IV SCH ×5 (02:48→16:45)
[2017-04-15] MEDS: CHOLESTYRAMINE 4 GM PACKET PO SCH ×2 (05:14→18:00)
[2017-04-15] MEDS: LEVOTHYROXINE SODIUM 75 MCG TAB PO SCH (05:14)
[2017-04-15 06:26] LABS: AUTOMATED NEUTROPHIL # 2.5 TH/MM3 (1.8-7.7); BASOPHIL % 0.6 % (0.0-2.0); EOSINOPHIL # 0.1 TH/MM3 (0-0.4); EOSINOPHIL % 1.4 % (0.0-4.0); LYMPH % 23.2 % (9.0-44.0); LYMPHOCYTE # 0.9 TH/MM3 (1.0-4.8); MEAN CELL VOLUME 101.4 FL (80.0-100.0); MEAN CORPUSCULAR HEMOGLOBIN 34.6 PG (27.0-34.0); MEAN CORPUSCULAR HGB CONC 34.1 % (32.0-36.0); MONO % 10.8 % (0.0-8.0); PLATELET COUNT 86 TH/MM3 (150-450); RED BLOOD COUNT 2.56 MIL/MM3 (4.00-5.30); RED CELL DISTRIBUTION WIDTH 15.4 % (11.6-17.2); WHITE BLOOD COUNT 3.9 TH/MM3 (4.0-11.0)
[2017-04-15 06:36] LABS: HEMO FLAGS AUTO DIFF
[2017-04-15 06:44] LABS: BICARBONATE 20.9 MEQ/L (21.0-32.0); MAGNESIUM 2.1 MG/DL (1.5-2.5); POTASSIUM 4.6 MEQ/L (3.5-5.1)
[2017-04-15] MEDS: INSULIN ASPART SUPPLEMENTAL SCALE SQ SCH ×4 (07:00→19:45)
[2017-04-15] MEDS: METOPROLOL TARTRATE 25 MG TAB PO SCH ×2 (07:31→19:46)
[2017-04-15] MEDS: ASCORBIC ACID 500 MG TAB PO SCH (07:31)
[2017-04-15] MEDS: PANTOPRAZOLE SOD 40 MG DELAYED RELEASE TAB PO SCH (07:32)
[2017-04-15] MEDS: predniSONE 5 MG TAB PO SCH (07:32)
[2017-04-15] MEDS: LOSARTAN 50 MG TAB PO SCH (07:32)
[2017-04-15] MEDS: CHOLECALCIFEROL (VIT D3) 1000 UNIT TAB PO SCH (07:32)
[2017-04-15] MEDS: SERTRALINE HCL 50 MG TAB PO SCH (07:32)
[2017-04-15] MEDS: cloNIDine HCL 0.1 MG TAB PO SCH ×3 (07:32→17:04)
[2017-04-15] MEDS: DOCUSATE SODIUM 50 MG/SENNA 8.6 MG TAB PO SCH ×2 (07:32→19:46)
[2017-04-15] MEDS: SODIUM CHLORIDE 0.9% FLUSH 10 ML FLUSH IV FLUSH SCH ×2 (07:33→19:46)
[2017-04-15] MEDS: LACTULOSE SYRUP 20 GM/30 ML CUP PO SCH ×2 (07:33→19:46)
[2017-04-15] MEDS: INSULIN DETEMIR 100 UNITS/ML VIAL SQ SCH (07:34)
[2017-04-15] MEDS: MERCAPTOPURINE 50 MG TAB PO SCH (07:44)
[2017-04-15] MEDS ORDERED: PROMETHAZINE INJ 25 MG/ML VIAL IM PRN (08:30)
[2017-04-15 09:41] LABS: SCAN/DIFF AUTO DIFF CONFIRMED
[2017-04-15] MEDS: INSULIN ASPART 1,000 UNITS/10 ML VIAL SQ SCH ×3 (09:42→17:00)
--- NOTE | 2017-04-15 10:22 | RADRPT ---
EXAM DATE/TIME: 04/15/2017 08:32 [facility] COMPARISON: CT THORAX W/O CONTRAST, April 10, 2017, 18:46. INDICATIONS : Vomiting. Rule out ileus. MEDICAL HISTORY : Hypertension. Cardiovascular disease SURGICAL HISTORY : None. ENCOUNTER: Initial ACUITY: 1 day PAIN SCORE: 0/10 LOCATION: Bilateral Abdomen FINDINGS: Gas is seen in the sigmoid colon and rectum. No dilated loops of small bowel seen. Mild degenerativ e changes in the hips there is a fracture of the posterolateral right 9th rib. No suspicious calcifi cations. CONCLUSION: 1. Mildly displaced fracture lateral right 9th rib. 2. No dilated loops of small bowel seen. Jose Dye MD on April 15, 2017 at 10:17 Board Certified Radiologist. This report was verified electronically.
[2017-04-15 12:33] LABS: INDIRECT BILIRUBIN 0.2 MG/DL (0.0-0.8); TOTAL BILIRUBIN ADULT 0.4 MG/DL (0.2-1.0)
--- NOTE | 2017-04-15 15:10 | HHI.GIFU ---
Subjective Remarks GI reconsulted for intractable n/v. States she always has intermittent nausea/ vomiting, but that it has worsened and she is not tolerating po. Resting in bed. She has seen Dr. Etienne in the past and reports that she had an EGD in the past for this, about a year ago Objective Vitals I&O Vital Signs Date Time Temp Pulse Resp B/P (MAP) Pulse Ox O2 Delivery O2 Flow Rate FiO2 04/15/17 14:00 54 04/15/17 12:00 98.6 51 11 109/59 (76) 96 04/15/17 12:00 50 04/15/17 10:00 57 04/15/17 08:00 98.8 81 19 148/72 (97) 93 04/15/17 08:00 81 04/15/17 06:00 66 04/15/17 06:00 66 13 122/58 (79) 93 04/15/17 05:00 68 15 125/57 (79) 96 04/15/17 04:00 99.3 70 13 119/56 (77) 94 04/15/17 04:00 70 04/15/17 03:00 69 16 114/55 (74) 94 04/15/17 03:00 15 04/15/17 02:00 64 15 119/57 (77) 95 04/15/17 02:00 64 04/15/17 01:00 55 14 168/74 (105) 95 04/15/17 00:00 98.7 57 14 171/68 (102) 95 04/15/17 00:00 57 04/14/17 23:00 56 12 163/76 (105) 95 04/14/17 22:00 56 04/14/17 22:00 56 13 140/67 (91) 95 04/14/17 21:00 54 13 132/58 (82) 96 04/14/17 20:00 53 04/14/17 20:00 98.5 53 14 121/57 (78) 96 04/14/17 19:00 52 13 106/53 (70) 96 04/14/17 18:00 59 04/14/17 16:00 97.8 59 18 150/69 (96) 95 04/14/17 16:00 59 I/O 9/5/17 9/5/17 04/14/17 04/15/17 04/15/17 04/15/17 07:00 15:00 23:00 07:00 15:00 23:00 Intake Total 120 ml 1450 ml 720 ml 120 ml Balance 120 ml 1450 ml 720 ml 120 ml Intake Oral 120 ml 720 ml 120 ml IV Total 1450 ml # Voids 1 3 2 # Bowel Movements 1 Laboratory Laboratory Tests Test 04/14/17 16:48 04/14/17 21:18 04/15/17 03:54 Blood Urea Nitrogen 34 36 36 Creatinine 1.11 1.32 1.32 Random Glucose 202 201 207 Calcium Level 8.4 8.2 8.6 Phosphorus Level 2.5 2.4 2.5 Magnesium Level 2.0 2.1 2.1 Sodium Level 136 136 139 Potassium Level 4.8 5.0 4.6 Chloride Level 108 108 110 Carbon Dioxide Level 20.1 21.1 20.9 Anion Gap 8 7 8 Estimat Glomerular Filtration Rate 49 40 40 Thyroid Stimulating Hormone 3rd Gen 4.530 B-Hydroxybutyrate 0.18 White Blood Count 3.9 Red Blood Count 2.56 Hemoglobin 8.9 Hematocrit 26.0 Mean Corpuscular Volume 101.4 Mean Corpuscular Hemoglobin 34.6 Mean Corpuscular Hemoglobin Concent 34.1 Red Cell Distribution Width 15.4 Platelet Count 86 Mean Platelet Volume 10.8 Neutrophils (%) (Auto) 64.0 Lymphocytes (%) (Auto) 23.2 Monocytes (%) (Auto) 10.8 Eosinophils (%) (Auto) 1.4 Basophils (%) (Auto) 0.6 Neutrophils # (Auto) 2.5 Lymphocytes # (Auto) 0.9 Monocytes # (Auto) 0.4 Eosinophils # (Auto) 0.1 Basophils # (Auto) 0.0 CBC Comment AUTO DIFF Differential Comment AUTO DIFF CONFIRMED Albumin 2.5 Total Bilirubin 0.4 Direct Bilirubin 0.2 Indirect Bilirubin 0.2 Aspartate Amino Transf (AST/SGOT) 41 Alanine Aminotransferase (ALT/SGPT) 40 Alkaline Phosphatase 213 Total Protein 6.8 Lipase 93 Imaging Last Impressions Abdomen X-Ray 04/15/17 0000 Signed Impressions: Service Date/Time: Saturday, April 15, 2017 08:32 - CONCLUSION: 1. Mildly displaced fracture lateral right 9th rib. 2. No dilated loops of small bowel seen. Jose Dye MD Wrist X-Ray 04/10/17 0000 Signed Impressions: Service Date/Time: Monday, April 10, 2017 18:16 - CONCLUSION: No acute abnormality is seen. There is degenerative change at the first carpometacarpal joint and osteopenia. Yayo Hall MD Head CT 04/10/17 0000 Signed Impressions: Service Date/Time: Monday, April 10, 2017 18:42 - CONCLUSION: Normal examination. Yayo Hall MD Chest CT 04/10/17 0000 Signed Impressions: Service Date/Time: Monday, April 10, 2017 18:46 - CONCLUSION: 1. No definite acute abnormality seen. 2. Chronic appearing interstitial disease of the lower lobes the more proximal right. 3. Cirrhotic appearing liver. The spleen appears enlarged. 4. Coronary artery calcification. Yayo Hall MD Physical Exam HEENT: Normocephalic; atraumatic; no jaundice. CHEST: CTA CARDIAC: RRR ABDOMEN: Soft, nondistended, nontender; no hepatosplenomegaly; bowel sounds are present in all four quadrants. EXTREMITIES: No clubbing, cyanosis, or edema. Left arm in splint and wrapped. SKIN: Normal; no rash; no jaundice. CERTIFIED NURSING ATTENDANT: No focal deficits; alert and oriented times three. Assessment and Plan Plan ASSESSMENT: - Intractable n/v. We saw pt during this hospitalization for mild dysphagia with pills and solids and the plan was for routine EGD with dilatation as outpatient. However, she then started having intractable nausea and vomiting and we were reconsulted. EGD/Colon (06/09/16) at [facility]----> minimal grade I esophageal varices, normal stomach, normal examined duodenum, one 3 mm polyp in the transverse colon. Resected and retrieved- hyperplastic polyp. No imaging, but creat 1.32, so will hold off on CT scan at this time. PPI - Mild dysphagia. Plan was for egd with dilatation as outpatient, but now with n/v. - Diabetes with syncopal episode probably due to hypoglycemia. per attending. - Autoimmune hepatitis. Dx 7 years ago by liver biopsy. On prednisone. T. Bili T> 0.4, AST 41, ALT 40, ALk Phosph 213. - Liver cirrhosis with varices, ascites. Off diuretics for renal impairment. LFT stable. PLAN: - Plan for egd +/- dilatation in am - Obtain consents - NPO - PPI - Prednisone - Monitor labs - Consider CT scan abdomen/pelvis once renal function improves - Supportive care - Further recommendations to follow based on results of above - Pt seen and examined by Dr. Rodriguez and myself and this note is written on his behalf Heidi Medina Apr 15, 2017 15:10
[2017-04-15] MEDS ORDERED: DIATRIZOATE MEGLUM/DIATRIZOATE SOD 9 ML CUP PO ONE (16:45)
[2017-04-15] MEDS: LIDOCAINE HCL 5% PATCH T-DERMAL SCH (17:04)
[2017-04-15] MEDS ORDERED: IODIXANOL 320 MG/ML 10 ML VIAL (for Rad CT) IV ONE (20:30)
--- NOTE | 2017-04-15 21:09 | RADRPT ---
EXAM DATE/TIME: 04/15/2017 20:18 [facility] COMPARISON: No previous studies available for comparison. INDICATIONS : Diffuse abdominal pain and nausea. IV CONTRAST: 50 cc Visipaque (iodixanol) IV ORAL CONTRAST: Prescribed oral contrast ingested. RADIATION DOSE: 9.96 CTDIvol (mGy) MEDICAL HISTORY : Cirrhosis. Hypertension. Cardiovascular disease. SURGICAL HISTORY : Hysterectomy. ENCOUNTER: Subsequent ACUITY: 4 - 6 days PAIN SCALE: 5/10 LOCATION: All quadrants. TECHNIQUE: Volumetric scanning of the abdomen and pelvis was performed. Using automated exposure control and ad justment of the mA and/or kV according to patient size, radiation dose was kept as low as reasonably achievable to obtain optimal diagnostic quality images. DICOM format image data is available electro nically for review and comparison. FINDINGS: Trace pleural fluid present with basilar atelectasis. Advanced liver cirrhosis. No focal splenic lesi ons. Mild to moderate ascites. Adrenals, kidneys and pancreas demonstrate no acute findings. No galls tones or biliary ductal dilatation. Mild mural thickening distal left colon. No bowel obstruction. No free air. CONCLUSION: 1. Mild mural thickening of the distal left colon most characteristic of mild colitis. 2. Liver cirrhosis with [id number] ascites. Mild anasarca. Trace pleural fluid. 3. No bowel obstruction or free air. Joel Cho MD on April 15, 2017 at 21:03 Board Certified Radiologist. This report was verified electronically.
--- NOTE | 2017-04-15 23:58 | HHI.PR ---
Subjective Remarks patient seen today around noon. Had some nausea this morning. Says it has improved. Denies any chest pain. Abdominal pain could be secondary to rib fracture as seen on x-ray. Lidocaine ordered Nausea could be secondary to narcotics. Discontinue narcotics. GI consultation appreciated. Objective Vital Signs Date Time Temp Pulse Resp B/P (MAP) Pulse Ox O2 Delivery O2 Flow Rate FiO2 04/15/17 21:42 98.4 56 18 164/78 (106) 97 04/15/17 20:00 55 04/15/17 20:00 97.9 55 14 150/67 (94) 96 04/15/17 18:00 51 04/15/17 16:00 98.3 51 11 110/59 (76) 97 04/15/17 16:00 51 04/15/17 14:00 54 04/15/17 12:00 98.6 51 11 109/59 (76) 96 04/15/17 12:00 50 04/15/17 10:00 57 04/15/17 08:00 98.8 81 19 148/72 (97) 93 04/15/17 08:00 81 04/15/17 06:00 66 04/15/17 06:00 66 13 122/58 (79) 93 04/15/17 05:00 68 15 125/57 (79) 96 04/15/17 04:00 99.3 70 13 119/56 (77) 94 04/15/17 04:00 70 04/15/17 03:00 69 16 114/55 (74) 94 04/15/17 03:00 15 04/15/17 02:00 64 15 119/57 (77) 95 04/15/17 02:00 64 04/15/17 01:00 55 14 168/74 (105) 95 04/15/17 00:00 98.7 57 14 171/68 (102) 95 04/15/17 00:00 57 I/O 04/15/17 04/15/17 04/15/17 04/16/17 04/16/17 04/16/17 07:00 15:00 23:00 07:00 15:00 23:00 Intake Total 120 ml 960 ml Balance 120 ml 960 ml Intake Oral 120 ml 960 ml # Voids 2 0 # Bowel Movements 0 Result Diagram: 04/15/17 0354 04/15/17 0354 Objective Remarks GENERAL: patient sitting up in bed.sleeping, wakes up for exam. Appears comfortable. SKIN: Warm and dry. HEAD: Normocephalic. EYES: No scleral icterus. No injection or drainage. NECK: Supple, trachea midline. No JVD or lymphadenopathy. CARDIOVASCULAR: Regular rate and rhythm without murmurs, gallops, or rubs. RESPIRATORY: Breath sounds equal bilaterally. No accessory muscle use. GASTROINTESTINAL: Abdomen soft, non-tender, nondistended. MUSCULOSKELETAL: No cyanosis, or edema. BACK: Nontender without obvious deformity. No CVA tenderness. A/P Assessment and Plan == 04/15/17.========= //intractable nausea. Worsening. Reconsult GI. Lipase ordered and normal. CT abdomen ordered. Possible gastroparesis. Discontinue narcotics. Appreciate GI assistance. //Right rib fracture on imaging. Can do Lidoderm patch. //Diabetes mellitus. Continue long-acting insulin even if patient is nausea/ vomiting. Discussed with nursing. Only hold sliding scale. 66-year-old female with a PMH of HTN, Autoimmune Hepatitis, Cirrhosis, DM, Anxiety, Depression and RBBB who presented after syncopal event //Syncope: +lightheadedness/dizziness followed by syncopal event, likely secondary to labile BP, orthostatic hypotension, in combination with dehydration /OSVALDO. Reviewed: CT Head w/ no acute findings. Echo 03/05/16 w/ EF 65%, normal LV function. Patient also reports outpatient nuclear stress test this past year with Dr. Giron which was reportedly unremarkable. -Monitor on telemetry, no acute findings -IVF for hydration. -Orthostatics positive, d/c lasix and nifedipine, given IVF and hali hose, counseled on slow transitions from lying to sitting to standing -PT eval, no PT needed at discharge //Fall: Secondary to syncope as above. Patient was having right rib pain and left wrist pain. Reviewed: CT Chest w/ no acute findings. Wrist X-ray w/ no acute abnormality seen, degenerative change at first carpometacarpal joint and osteopenia -Lidoderm patch -Analgesics as needed. -Wrist splint placed in the ED -Lidoderm patch for right sided rib fracture. OSVALDO: acute dehydration with chronic kidney disease. Creatinine 1.29, previously 1.17 on 01/22/17. -Much improved. Continue IV fluids in the setting of nausea and vomiting. //HTN: extremely labile BP with +orthostatics -Continue home antihypertensives including clonidine, losartan, metoprolol; d/c lasix and nifedipine -Monitor and adjust regimen as needed -BP improved //Autoimmune Hepatitis: Chronic. Stable LFTs stable in comparison to previous. -On chronic steroid therapy, continue home Prednisone. //DM: Very labile blood sugars, BS 330 on arrival, decreased to 40s overnight. -Continued home Levemir however adjusted dosing, decreased morning dose from 25u to 20u and discontinued evening dose. -Sliding scale w/ Accu-Cheks. 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 -Swallow eval -Antiemetics as needed -Consult patient's set up mechanic coating machines, recommends outpatient EGD with dilatation -04/15. Worsened nausea and vomiting. Reconsult GI. Appreciate assistance. Ayden Mittal MD Apr 15, 2017 23:58
[2017-04-16] VITALS: BP 128/65; PULSE 57; RESP 18; TEMP 98.4; O2SAT 97
[2017-04-16 04:00] VITALS: BP 137/63; PULSE 61; RESP 18; TEMP 98.7; O2SAT 94
[2017-04-16] MEDS: REMOVE OLD PATCH T-DERMAL SCH (04:00)
[2017-04-16] MEDS: CHOLESTYRAMINE 4 GM PACKET PO SCH ×2 (05:50→18:00)
[2017-04-16] MEDS: INSULIN ASPART SUPPLEMENTAL SCALE SQ SCH ×4 (05:54→21:00)
[2017-04-16] MEDS: LEVOTHYROXINE SODIUM 75 MCG TAB PO SCH (05:57)
[2017-04-16] MEDS: INSULIN ASPART 1,000 UNITS/10 ML VIAL SQ SCH ×3 (08:00→17:00)
[2017-04-16] MEDS ORDERED: PROPOFOL 200 MG/20 ML AMP IV ONE (08:56)
[2017-04-16] MEDS: DOCUSATE SODIUM 50 MG/SENNA 8.6 MG TAB PO SCH ×3 (09:00→21:01)
[2017-04-16] MEDS: CHOLECALCIFEROL (VIT D3) 1000 UNIT TAB PO SCH (09:00)
[2017-04-16] MEDS: MERCAPTOPURINE 50 MG TAB PO SCH (09:00)
[2017-04-16] MEDS: ASCORBIC ACID 500 MG TAB PO SCH (09:00)
[2017-04-16] MEDS: SODIUM CHLORIDE 0.9% FLUSH 10 ML FLUSH IV FLUSH SCH ×2 (09:00→21:00)
[2017-04-16] MEDS: INSULIN DETEMIR 100 UNITS/ML VIAL SQ SCH (09:00)
[2017-04-16] MEDS: SERTRALINE HCL 50 MG TAB PO SCH (09:00)
--- NOTE | 2017-04-16 09:08 | GIPROC ---
[facility] [address] [facility]. [facility], [address] EGD PROCEDURE REPORT EXAM DATE: 04/16/2017 PATIENT NAME: Shaista Mooney MR #: [id number] BIRTHDATE: 1950 ATTENDING: Maria M Byrd MD ORDER #: [id number] HARNESS PREPARER: Baldemar Cespedes and Janis Brooks STATUS: inpatient INDICATIONS: The patient is a 66 yr old female here for an EGD due to vomiting, nausea, and epigastric abdominal pain PROCEDURE PERFORMED: EGD w/ biopsy EGD w/ dilation of esophagus via guidewire MEDICATIONS: None and Per Anesthesia. TOPICAL ANESTHETIC: none CONSENT: The patient understands the risks and benefits of the procedure and understands that these risks include, but are not limited to: sedation, allergic reaction, infection, perforation and/or bleeding. Alternative means of evaluation and treatment include, among others: physical exam, x-rays, and/or surgical intervention. The patient elects to proceed with this endoscopic procedure. medical equipment was checked for proper function. Hand hygiene and appropriate measures for infection prevention was taken. After the risks, benefits and alternatives of the procedure were thoroughly explained, Informed consent was verified, confirmed and timeout was successfully executed by the treatment team. The patient was anesthetized with topical anesthesia and the Pentax EG-[id number] endoscope was introduced through the mouth and advanced to the second portion of the duodenum. Retroflexed views revealed no abnormalities The gastroscope was then slowly withdrawn and removed. Distal esophageal stricture, status post dilation of the strictured by savory guidewire size 17 mm. Mild gastritis, biopsy from the antrum to rule out H. pylori. The endoscopy was otherwise normal. ADVERSE EVENTS: There were no complications. IMPRESSIONS: 1. Distal esophageal stricture, status post dilation of the strictured by savory guidewire size 17 mm 2. Mild gastritis, biopsy from the antrum to rule out H. pylori 3. Normal endoscopy otherwise 4. Retroflexed views revealed no abnormalities RECOMMENDATIONS: 1. Await biopsy results. Biopsy results will not be ready for 7-10 days. If you don't hear from us in two weeks, call our office for biopsy results. 2. Anti-reflux regimen 3. Continue PPI 4. Avoid NSAIDS 5. Patient may have gastroparesis since she is diabetic, recommend gastric emptying study PATIENT CONDITION: stable DISPOSITION: Inpatient REPEAT EXAM: Return as needed for EGD Maria M Byrd MD eSigned: Maria M Byrd MD 04/16/2017 9:08 AM cc: PATIENT NAME: Shaista Mooney MR#: [id number]
--- NOTE | 2017-04-16 09:11 | HHI.GIFU ---
Subjective Remarks Patient laying in bed comfortably, she feels slightly better, but she still have occasional dysphagia and nausea, less vomiting today Objective Vitals I&O Vital Signs Date Time Temp Pulse Resp B/P (MAP) Pulse Ox O2 Delivery O2 Flow Rate FiO2 04/16/17 04:00 98.7 61 18 137/63 (87) 94 04/16/17 00:00 98.4 57 18 128/65 (86) 97 04/15/17 21:42 98.4 56 18 164/78 (106) 97 04/15/17 20:00 55 04/15/17 20:00 97.9 55 14 150/67 (94) 96 04/15/17 18:00 51 04/15/17 16:00 98.3 51 11 110/59 (76) 97 04/15/17 16:00 51 04/15/17 14:00 54 04/15/17 12:00 98.6 51 11 109/59 (76) 96 04/15/17 12:00 50 04/15/17 10:00 57 I/O 04/15/17 04/15/17 04/15/17 04/16/17 04/16/17 04/16/17 07:00 15:00 23:00 07:00 15:00 23:00 Intake Total 120 ml 960 ml 200 ml Balance 120 ml 960 ml 200 ml Intake Oral 120 ml 960 ml Other 200 ml # Voids 2 0 1 # Bowel Movements 0 Physical Exam HEENT: Normocephalic; atraumatic; no jaundice. CHEST: CTA CARDIAC: RRR ABDOMEN: Soft, nondistended, mild epigastric tenderness ; no hepatosplenomegaly ; bowel sounds are present in all four quadrants. EXTREMITIES: No clubbing, cyanosis, or edema. Left arm in splint and wrapped. SKIN: Normal; no rash; no jaundice. GROUP WORK PROGRAM DIRECTOR: No focal deficits; alert and oriented times three. Assessment and Plan Plan ASSESSMENT: - Intractable n/v. We saw pt during this hospitalization for mild dysphagia with pills and solids and the plan was for routine EGD with dilatation as outpatient. However, she then started having intractable nausea and vomiting and we were reconsulted. EGD/Colon (06/09/16) at [facility]----> minimal grade I esophageal varices, normal stomach, normal examined duodenum, one 3 mm polyp in the transverse colon. Resected and retrieved- hyperplastic polyp. No imaging, but creat 1.32, so will hold off on CT scan at this time. PPI - Mild dysphagia. Plan was for egd with dilatation as outpatient, but now with n/v. - Diabetes with syncopal episode probably due to hypoglycemia. per attending. - Autoimmune hepatitis. Dx 7 years ago by liver biopsy. On prednisone. T. Bili T> 0.4, AST 41, ALT 40, ALk Phosph 213. - Liver cirrhosis with varices, ascites. Off diuretics for renal impairment. LFT stable. 04/16/2017 patient is doing better today her dysphagia is mostly to pills, less vomiting and mild nausea, upper endoscopy was performed today with dilation, which showed mild gastritis biopsy was done and dilation of the distal esophagus. Patient possibly have gastroparesis secondary to diabetes PLAN: -Advance to diabetic diet - PPI - Prednisone - Monitor labs - Consider CT scan abdomen/pelvis once renal function improves -Gastric emptying study - Further recommendations to follow based on results of above Maria M Byrd MD Apr 16, 2017 09:11
[2017-04-16 12:00] VITALS: BP 170/80; PULSE 65; RESP 20; TEMP 98.7; O2SAT 95
[2017-04-16] MEDS: cloNIDine HCL 0.1 MG TAB PO SCH ×3 (13:00→18:37)
[2017-04-16] MEDS: ACETAMINOPHEN 325 MG TAB PO PRN ×2 (15:37→21:02)
[2017-04-16] MEDS: LACTULOSE SYRUP 20 GM/30 ML CUP PO SCH ×2 (15:37→21:01)
[2017-04-16] MEDS: PANTOPRAZOLE SOD 40 MG DELAYED RELEASE TAB PO SCH (15:38)
[2017-04-16] MEDS: METOPROLOL TARTRATE 25 MG TAB PO SCH ×2 (15:38→21:02)
[2017-04-16] MEDS: predniSONE 5 MG TAB PO SCH (15:38)
[2017-04-16] MEDS: LOSARTAN 50 MG TAB PO SCH (15:38)
[2017-04-16 16:00] VITALS: BP 137/66; PULSE 82; RESP 20; TEMP 98.8; O2SAT 95
[2017-04-16] MEDS: LIDOCAINE HCL 5% PATCH T-DERMAL SCH (16:00)
[2017-04-16 16:53] LABS: BICARBONATE 23.6 MEQ/L (21.0-32.0); POTASSIUM 4.5 MEQ/L (3.5-5.1)
[2017-04-16] MEDS: SODIUM CHLOR 0.9% 1000 ML INJ 1,000 ML IV SCH (18:37)
[2017-04-16 20:59] VITALS: BP 166/85; PULSE 67; RESP 18; TEMP 97.6; O2SAT 96
--- NOTE | 2017-04-16 22:29 | HHI.PR ---
Subjective Remarks Patient seen this morning around 11 AM. Status post EGD with dilation. Says she feels better. Denies any nausea or vomiting today. Denies any abdominal pain. Objective Vital Signs Date Time Temp Pulse Resp B/P (MAP) Pulse Ox O2 Delivery O2 Flow Rate FiO2 04/16/17 20:59 97.6 67 18 166/85 (112) 96 04/16/17 16:00 98.8 82 20 137/66 (89) 95 04/16/17 12:00 98.7 65 20 170/80 (110) 95 04/16/17 09:30 99.4 62 18 152/75 (100) 96 04/16/17 09:10 99.6 63 18 153/61 (91) 98 04/16/17 08:00 04/16/17 04:00 98.7 61 18 137/63 (87) 94 04/16/17 00:00 98.4 57 18 128/65 (86) 97 I/O 04/15/17 04/15/17 04/15/17 04/16/17 04/16/17 04/16/17 07:00 15:00 23:00 07:00 15:00 23:00 Intake Total 120 ml 960 ml 200 ml Balance 120 ml 960 ml 200 ml Intake Oral 120 ml 960 ml Other 200 ml # Voids 2 0 1 # Bowel Movements 0 Result Diagram: 04/15/17 0354 04/16/17 1530 Imaging Last Impressions Abdomen/Pelvis CT 04/15/17 0000 Signed Impressions: Service Date/Time: Saturday, April 15, 2017 20:18 - CONCLUSION: 1. Mild mural thickening of the distal left colon most characteristic of mild colitis. 2. Liver cirrhosis with [id number] ascites. Mild anasarca. Trace pleural fluid. 3. No bowel obstruction or free air. Joel Cho MD Abdomen X-Ray 04/15/17 0000 Signed Impressions: Service Date/Time: Saturday, April 15, 2017 08:32 - CONCLUSION: 1. Mildly displaced fracture lateral right 9th rib. 2. No dilated loops of small bowel seen. Jose Dye MD Wrist X-Ray 04/10/17 0000 Signed Impressions: Service Date/Time: Monday, April 10, 2017 18:16 - CONCLUSION: No acute abnormality is seen. There is degenerative change at the first carpometacarpal joint and osteopenia. Yayo Hall MD Head CT 04/10/17 0000 Signed Impressions: Service Date/Time: Monday, April 10, 2017 18:42 - CONCLUSION: Normal examination. Yayo Hall MD Chest CT 04/10/17 0000 Signed Impressions: Service Date/Time: Monday, April 10, 2017 18:46 - CONCLUSION: 1. No definite acute abnormality seen. 2. Chronic appearing interstitial disease of the lower lobes the more proximal right. 3. Cirrhotic appearing liver. The spleen appears enlarged. 4. Coronary artery calcification. Yayo Hall MD Objective Remarks GENERAL: patient sitting up in bed.weight. Appears comfortable. SKIN: Warm and dry. HEAD: Normocephalic. EYES: No scleral icterus. No injection or drainage. NECK: Supple, trachea midline. No JVD . CARDIOVASCULAR: Regular rate and rhythm without murmurs, gallops, or rubs. RESPIRATORY: Breath sounds equal bilaterally. No accessory muscle use. GASTROINTESTINAL: Abdomen soft, non-tender, nondistended. MUSCULOSKELETAL: No cyanosis, or edema. BACK: Nontender without obvious deformity. No CVA tenderness. A/P Assessment and Plan == 04/16/17.========= //intractable nausea. //Esophageal stricture Much improved after GI dilation. Avoiding narcotics due to suspected gastroparesis. Gastric emptying study ordered by GI and pending. //Diabetes mellitus. Low blood sugar 66 this morning as patient was MPO. Blood sugars relatively well controlled Otherwise. Continue to monitor. 66-year-old female with a PMH of HTN, Autoimmune Hepatitis, Cirrhosis, DM, Anxiety, Depression and RBBB who presented after syncopal event //Syncope: +lightheadedness/dizziness followed by syncopal event, likely secondary to labile BP, orthostatic hypotension, in combination with dehydration /OSVALDO. Reviewed: CT Head w/ no acute findings. Echo 03/05/16 w/ EF 65%, normal LV function. Patient also reports outpatient nuclear stress test this past year with Dr. Giron which was reportedly unremarkable. -Monitor on telemetry, no acute findings -IVF for hydration. -Orthostatics positive, d/c lasix and nifedipine, given IVF and hali hose, counseled on slow transitions from lying to sitting to standing -PT eval, no PT needed at discharge //Fall: Secondary to syncope as above. Patient was having right rib pain and left wrist pain. Reviewed: CT Chest w/ no acute findings. Wrist X-ray w/ no acute abnormality seen, degenerative change at first carpometacarpal joint and osteopenia -Lidoderm patch -Analgesics as needed. -Wrist splint placed in the ED -Lidoderm patch for right sided rib fracture. //OSVALDO: acute dehydration with chronic kidney disease. Creatinine 1.29, previously 1.17 on 01/22/17. -Much improved. Continue IV fluids in the setting of nausea and vomiting. //HTN: extremely labile BP with +orthostatics -Continue home antihypertensives including clonidine, losartan, metoprolol; d/c lasix and nifedipine -Monitor and adjust regimen as needed -BP improved //Autoimmune Hepatitis: Chronic. Stable LFTs stable in comparison to previous. -On chronic steroid therapy, continue home Prednisone. //DM: Very labile blood sugars, BS 330 on arrival, decreased to 40s overnight. -Continued home Levemir however adjusted dosing, decreased morning dose from 25u to 20u and discontinued evening dose. -Sliding scale w/ Accu-Cheks. 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 -Swallow eval -Antiemetics as needed -Consult patient's medical support assistant, recommends outpatient EGD with dilatation -04/15. Worsened nausea and vomiting. Reconsult GI. Appreciate assistance. -04/16. Much improved after esophageal dilation. Continue to avoid narcotics. Gastroparesis workup pending. Discharge Planning patient feeling well, may be discharged home tomorrow. Ayden Mittal MD Apr 16, 2017 22:29
[2017-04-17 00:30] VITALS: BP 143/79; PULSE 67; RESP 16; TEMP 100.3; O2SAT 98
[2017-04-17 01:02] VITALS: TEMP 99.8
[2017-04-17 04:30] VITALS: BP 167/75; PULSE 78; RESP 16; TEMP 99.8; O2SAT 96
[2017-04-17] MEDS: LEVOTHYROXINE SODIUM 75 MCG TAB PO SCH (05:04)
[2017-04-17] MEDS: REMOVE OLD PATCH T-DERMAL SCH (05:05)
[2017-04-17] MEDS: CHOLESTYRAMINE 4 GM PACKET PO SCH ×2 (05:05→18:00)
[2017-04-17] MEDS: INSULIN ASPART SUPPLEMENTAL SCALE SQ SCH ×4 (05:07→23:26)
[2017-04-17 08:00] VITALS: BP 190/79; PULSE 69; RESP 20; TEMP 99.9; O2SAT 92
[2017-04-17] MEDS: INSULIN ASPART 1,000 UNITS/10 ML VIAL SQ SCH ×3 (08:00→17:00)
[2017-04-17] MEDS: INSULIN DETEMIR 100 UNITS/ML VIAL SQ SCH (09:00)
[2017-04-17] MEDS: MERCAPTOPURINE 50 MG TAB PO SCH (09:00)
[2017-04-17] MEDS: CHOLECALCIFEROL (VIT D3) 1000 UNIT TAB PO SCH (09:00)
[2017-04-17] MEDS: SODIUM CHLORIDE 0.9% FLUSH 10 ML FLUSH IV FLUSH SCH ×2 (09:00→21:00)
[2017-04-17] MEDS: ASCORBIC ACID 500 MG TAB PO SCH (09:00)
[2017-04-17] MEDS ORDERED: METOCLOPRAMIDE HCL 10 MG/2 ML VIAL ONE (11:07)
[2017-04-17 12:00] VITALS: BP 187/88; PULSE 86; RESP 20; TEMP 98.6; O2SAT 93
--- NOTE | 2017-04-17 12:36 | RADRPT ---
EXAM DATE/TIME: 04/17/2017 09:30 [facility] COMPARISON: No previous studies available for comparison. INDICATIONS : Abdominal pain, nausea and vomiting. DOSE: 1 mCi Tc99m Sulfur Colloid Labeled Whole egg PO MEDICATONS: 1.) 5 mg Reglan IV at 90 minutes IMAGIN hrs MEDICAL HISTORY : Cirrhosis. Hypertension. SURGICAL HISTORY : Hysterectomy. ENCOUNTER: Initial ACUITY: 1 day PAIN SCALE: 2/10 LOCATION: Abdomen. TECHNIQUE: Following the oral ingestion of radiotracer-labeled meal, dynamic sequential images in the FAROESE projec tion were acquired with simultaneous computer acquisition. The data set was decay-corrected. FINDINGS: LAG PHASE: There is less than 5 minutes before onset of gastric emptying. EMPTYING: Gastric emptying kinetics are linear. The decay-corrected, back-extrapolated half-time of emptying i s 80 minutes. (Normal for this lab is 45- 90 minutes.) INTERVENTION: There is no change post Reglan. CONCLUSION: Normal gastric emptying. Alida Cronin MD on April 17, 2017 at 12:34 Board Certified Radiologist. This report was verified electronically.
--- NOTE | 2017-04-17 12:57 | HHI.GIFU ---
Subjective Remarks Resting in bed. States she is not having any nausea or vomiting today. Swallowing has improved. (Heidi Medina) Objective Vitals I&O Vital Signs Date Time Temp Pulse Resp B/P (MAP) Pulse Ox O2 Delivery O2 Flow Rate FiO2 04/17/17 08:00 99.9 69 20 190/79 (116) 92 04/17/17 04:30 99.8 78 16 167/75 (105) 96 04/17/17 01:02 99.8 04/17/17 00:30 100.3 67 16 143/79 (100) 98 04/16/17 20:59 97.6 67 18 166/85 (112) 96 04/16/17 16:00 98.8 82 20 137/66 (89) 95 I/O 04/16/17 04/16/17 04/16/17 04/17/17 04/17/17 04/17/17 07:00 15:00 23:00 07:00 15:00 23:00 Intake Total 200 ml 864 ml Balance 200 ml 864 ml Intake Oral 360 ml IV Total 504 ml Other 200 ml # Voids 1 4 # Bowel Movements 1 Laboratory Laboratory Tests Test 04/16/17 15:30 Blood Urea Nitrogen 31 Creatinine 1.15 Random Glucose 201 Calcium Level 8.1 Sodium Level 140 Potassium Level 4.5 Chloride Level 109 Carbon Dioxide Level 23.6 Anion Gap 7 Estimat Glomerular Filtration Rate 47 Imaging Last Impressions Abdomen/Pelvis CT 04/15/17 0000 Signed Impressions: Service Date/Time: Saturday, April 15, 2017 20:18 - CONCLUSION: 1. Mild mural thickening of the distal left colon most characteristic of mild colitis. 2. Liver cirrhosis with [id number] ascites. Mild anasarca. Trace pleural fluid. 3. No bowel obstruction or free air. Joel Cho MD Abdomen X-Ray 04/15/17 0000 Signed Impressions: Service Date/Time: Saturday, April 15, 2017 08:32 - CONCLUSION: 1. Mildly displaced fracture lateral right 9th rib. 2. No dilated loops of small bowel seen. Jose Dye MD Wrist X-Ray 04/10/17 0000 Signed Impressions: Service Date/Time: Monday, April 10, 2017 18:16 - CONCLUSION: No acute abnormality is seen. There is degenerative change at the first carpometacarpal joint and osteopenia. Yayo Hall MD Head CT 04/10/17 0000 Signed Impressions: Service Date/Time: Monday, April 10, 2017 18:42 - CONCLUSION: Normal examination. Yayo Hall MD Chest CT 04/10/17 0000 Signed Impressions: Service Date/Time: Monday, April 10, 2017 18:46 - CONCLUSION: 1. No definite acute abnormality seen. 2. Chronic appearing interstitial disease of the lower lobes the more proximal right. 3. Cirrhotic appearing liver. The spleen appears enlarged. 4. Coronary artery calcification. Yayo Hall MD Physical Exam HEENT: Normocephalic; atraumatic; no jaundice. CHEST: CTA CARDIAC: RRR ABDOMEN: Soft, nondistended, mild epigastric tenderness ; no hepatosplenomegaly ; bowel sounds are present in all four quadrants. EXTREMITIES: No clubbing, cyanosis, or edema. Left arm in splint and wrapped. SKIN: Normal; no rash; no jaundice. TUBE BACKER: No focal deficits; alert and oriented times three. (Heidi Mednia) Assessment and Plan Plan ASSESSMENT: - Intractable n/v. S/P EGD with dilatation (04/16/17)----> 1. Distal esophageal stricture, status post dilation of the strictured by savory guidewire size 17 mm 2. Mild gastritis, biopsy from the antrum to rule out H. pylori 3. Normal endoscopy otherwise 4. Retroflexed views revealed no abnormalities. Pathology pending. GES (04/17)-----> Normal gastric emptying. PPI. N/V improved. PPI - Mild dysphagia. S/P EGD with dilatation. Improved. - Diabetes with syncopal episode probably due to hypoglycemia. per attending. - Autoimmune hepatitis. Dx 7 years ago by liver biopsy. On prednisone. T. Bili T> 0.4, AST 41, ALT 40, ALk Phosph 213. - Liver cirrhosis with varices, ascites. Off diuretics for renal impairment. LFT stable. PLAN: - Diabetic diet. - PPI - Prednisone - Monitor labs - Further recommendations to follow based on results of above - Pt seen and examined by Dr. Byrd and myself and this note is written on his behalf (Heidi Medina) Plan Patient was seen and examined, agree with the above note, patient stated that she tolerated food well able to swallow without any difficulty and no pain, we will continue current care and we will follow up with her as needed (Maria M Byrd MD) Heidi Medina Apr 17, 2017 12:57 Maria M Byrd MD Apr 17, 2017 21:41
[2017-04-17] MEDS: cloNIDine HCL 0.1 MG TAB PO SCH ×3 (13:00→18:52)
[2017-04-17] MEDS: PANTOPRAZOLE SOD 40 MG DELAYED RELEASE TAB PO SCH (14:45)
[2017-04-17] MEDS: METOPROLOL TARTRATE 25 MG TAB PO SCH ×2 (14:46→23:38)
[2017-04-17] MEDS: SERTRALINE HCL 50 MG TAB PO SCH (14:46)
[2017-04-17] MEDS: LOSARTAN 50 MG TAB PO SCH (14:46)
[2017-04-17] MEDS: DOCUSATE SODIUM 50 MG/SENNA 8.6 MG TAB PO SCH ×2 (14:46→21:00)
[2017-04-17] MEDS: predniSONE 5 MG TAB PO SCH (14:47)
[2017-04-17] MEDS: LACTULOSE SYRUP 20 GM/30 ML CUP PO SCH ×2 (14:47→21:00)
[2017-04-17] MEDS: LIDOCAINE HCL 5% PATCH T-DERMAL SCH (18:52)
[2017-04-17] MEDS: SODIUM CHLOR 0.9% 1000 ML INJ 1,000 ML IV SCH (18:58)
[2017-04-17 21:16] VITALS: BP 132/62; PULSE 61; RESP 18; TEMP 96.8; O2SAT 100
--- NOTE | 2017-04-17 22:38 | HHI.PR ---
Subjective Remarks Patient seen this morning. He says that nausea is improved. Reports right lateral rib pain as before. Denies any abdominal pain. Says she might be able to go home tomorrow. Objective Vital Signs Date Time Temp Pulse Resp B/P (MAP) Pulse Ox O2 Delivery O2 Flow Rate FiO2 04/17/17 21:16 96.8 61 18 132/62 (85) 100 04/17/17 12:00 98.6 86 20 187/88 (121) 93 04/17/17 08:00 99.9 69 20 190/79 (116) 92 04/17/17 04:30 99.8 78 16 167/75 (105) 96 04/17/17 01:02 99.8 04/17/17 00:30 100.3 67 16 143/79 (100) 98 I/O 04/16/17 04/16/17 04/16/17 04/17/17 04/17/17 04/17/17 07:00 15:00 23:00 07:00 15:00 23:00 Intake Total 200 ml 864 ml 480 ml Balance 200 ml 864 ml 480 ml Intake Oral 360 ml 480 ml IV Total 504 ml Other 200 ml # Voids 1 4 3 # Bowel Movements 1 1 Result Diagram: 04/15/17 0354 04/16/17 1530 Objective Remarks GENERAL: patient sitting up in bed.awake. Appears comfortable. SKIN: Warm and dry. HEAD: Normocephalic. EYES: No scleral icterus. No injection or drainage. NECK: Supple, trachea midline. No JVD . CARDIOVASCULAR: Regular rate and rhythm without murmurs, gallops, or rubs. RESPIRATORY: Breath sounds equal bilaterally. No accessory muscle use. GASTROINTESTINAL: Abdomen soft, non-tender, nondistended. MUSCULOSKELETAL: No cyanosis, or edema. BACK: Nontender without obvious deformity. No CVA tenderness. A/P Assessment and Plan == 04/17/17.========= = Nausea much improved. Patient has not eaten at the time of exam. Subsequently tolerated food. We'll plan for discharge home tomorrow. //intractable nausea. //Esophageal stricture Much improved after GI dilation. Avoiding narcotics due to suspected gastroparesis. Gastric emptying study ordered by GI and pending. //Diabetes mellitus. Blood sugars acceptable today. Continue diabetic diet, insulin, monitoring. 66-year-old female with a PMH of HTN, Autoimmune Hepatitis, Cirrhosis, DM, Anxiety, Depression and RBBB who presented after syncopal event //Syncope: +lightheadedness/dizziness followed by syncopal event, likely secondary to labile BP, orthostatic hypotension, in combination with dehydration /OSVALDO. Reviewed: CT Head w/ no acute findings. Echo 03/05/16 w/ EF 65%, normal LV function. Patient also reports outpatient nuclear stress test this past year with Dr. Giron which was reportedly unremarkable. -Monitor on telemetry, no acute findings -IVF for hydration. -Orthostatics positive, d/c lasix and nifedipine, given IVF and hali hose, counseled on slow transitions from lying to sitting to standing -PT eval, no PT needed at discharge //Fall: Secondary to syncope as above. Patient was having right rib pain and left wrist pain. Reviewed: CT Chest w/ no acute findings. Wrist X-ray w/ no acute abnormality seen, degenerative change at first carpometacarpal joint and osteopenia -Lidoderm patch -Analgesics as needed. -Wrist splint placed in the ED -Lidoderm patch for right sided rib fracture. //OSVALDO: acute dehydration with chronic kidney disease. Creatinine 1.29, previously 1.17 on 01/22/17. -Much improved. Continue IV fluids in the setting of nausea and vomiting. //HTN: extremely labile BP with +orthostatics -Continue home antihypertensives including clonidine, losartan, metoprolol; d/c lasix and nifedipine -Monitor and adjust regimen as needed -BP improved //Autoimmune Hepatitis: Chronic. Stable LFTs stable in comparison to previous. -On chronic steroid therapy, continue home Prednisone. //DM: Very labile blood sugars, BS 330 on arrival, decreased to 40s overnight. -Continued home Levemir however adjusted dosing, decreased morning dose from 25u to 20u and discontinued evening dose. -Sliding scale w/ Accu-Cheks. 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 -Swallow eval -Antiemetics as needed -Consult patient's auto body detailer, recommends outpatient EGD with dilatation -04/15. Worsened nausea and vomiting. Reconsult GI. Appreciate assistance. -04/16. Much improved after esophageal dilation. Continue to avoid narcotics. Gastroparesis workup pending. Discharge Planning patient feeling well. dc home tomorrow Ayden Mittal MD Apr 17, 2017 22:37
[2017-04-18 00:12] VITALS: BP 136/65; PULSE 62; RESP 18; TEMP 96.5; O2SAT 100
[2017-04-18] MEDS: REMOVE OLD PATCH T-DERMAL SCH (04:00)
[2017-04-18 05:20] VITALS: BP 125/68; PULSE 68; RESP 18; TEMP 96.9; O2SAT 98
[2017-04-18] MEDS: INSULIN ASPART SUPPLEMENTAL SCALE SQ SCH (07:00)
[2017-04-18] MEDS: CHOLESTYRAMINE 4 GM PACKET PO SCH (07:57)
[2017-04-18] MEDS: LEVOTHYROXINE SODIUM 75 MCG TAB PO SCH (07:57)
[2017-04-18 08:00] VITALS: BP 185/89; PULSE 105; RESP 18; TEMP 98.4; O2SAT 94
[2017-04-18] MEDS: INSULIN DETEMIR 100 UNITS/ML VIAL SQ SCH (09:00)
[2017-04-18] MEDS: CHOLECALCIFEROL (VIT D3) 1000 UNIT TAB PO SCH (09:23)
[2017-04-18] MEDS: SERTRALINE HCL 50 MG TAB PO SCH (09:23)
[2017-04-18] MEDS: DOCUSATE SODIUM 50 MG/SENNA 8.6 MG TAB PO SCH (09:23)
[2017-04-18] MEDS: PANTOPRAZOLE SOD 40 MG DELAYED RELEASE TAB PO SCH (09:23)
[2017-04-18] MEDS: LACTULOSE SYRUP 20 GM/30 ML CUP PO SCH (09:23)
[2017-04-18] MEDS: cloNIDine HCL 0.1 MG TAB PO SCH (09:23)
[2017-04-18] MEDS: ASCORBIC ACID 500 MG TAB PO SCH (09:23)
[2017-04-18] MEDS: predniSONE 5 MG TAB PO SCH (09:23)
[2017-04-18] MEDS: METOPROLOL TARTRATE 25 MG TAB PO SCH (09:23)
[2017-04-18] MEDS: LOSARTAN 50 MG TAB PO SCH (09:24)
[2017-04-18] MEDS: MERCAPTOPURINE 50 MG TAB PO SCH (09:32)
[2017-04-18] MEDS ORDERED: LEVEMIR SQ ×2 (10:33→10:34)
[2017-04-18 12:00] VITALS: BP 144/73; PULSE 70; RESP 18; TEMP 98.9; O2SAT 94
--- NOTE | 2017-04-19 21:39 | HHI.DS ---
Discharge Summary Admission Date Apr 13, 2017 at 22:52 Discharge Date: Apr 18, 2017 Admitting Diagnosis syncope (1) Syncope ICD Code: R55 - Syncope and collapse Status: Acute (2) OSVALDO (acute kidney injury) ICD Code: N17.9 - Acute kidney failure, unspecified Status: Acute (3) Rib pain ICD Code: R07.81 - Pleurodynia (4) Wrist pain ICD Code: M25.539 - Pain in unspecified wrist (5) HTN (hypertension) ICD Code: I10 - Essential (primary) hypertension (6) Autoimmune hepatitis ICD Code: K75.4 - Autoimmune hepatitis Status: Chronic (7) DM (diabetes mellitus) ICD Code: E11.9 - Type 2 diabetes mellitus without complications Status: Chronic Procedures EGD with esophageal dilation. Brief History - From Admission This is a 66-year-old female with a PMH of HTN, Autoimmune Hepatitis, Cirrhosis , DM, Anxiety, Depression and RBBB who was brought to the ER after syncopal event. Pt reports she felt sudden onset of lightheadedness, states she "knows when my blood sugar is off", reports lightheadedness and diaphoresis w/ low blood sugar and states "knees buckle" when her blood sugar is high. States she went to the kitchen to get orange juice thinking her BS was low when she had acute syncopal episode, approx few minutes, found by granddaughter. Pt w/ c/o left elbow pain and rib pain. On arrival, BP 133/62, HR 63, O2 sat 98% on RA, Afebrile. CBC at baseline in comparison to previous labs from 01/22/17 and back. Creatinine 1.29, previously 1.17 on 01/22/17. BS 330. LFTs mildly elevated, similar in comparison to previous labs. CT Chest with no acute findings, cirrhotic-appearing liver. CT Head normal. Wrist X-ray with no acute abnormality. CBC/BMP: 04/15/17 0354 04/16/17 1530 Imaging Last Impressions Gastric Emptying Nuclear Medicine 04/17/17 0000 Signed Impressions: Service Date/Time: Monday, April 17, 2017 09:30 - CONCLUSION: Normal gastric emptying. KIngrid Cronin MD Abdomen/Pelvis CT 04/15/17 0000 Signed Impressions: Service Date/Time: Saturday, April 15, 2017 20:18 - CONCLUSION: 1. Mild mural thickening of the distal left colon most characteristic of mild colitis. 2. Liver cirrhosis with [id number]-oo-[id number] ascites. Mild anasarca. Trace pleural fluid. 3. No bowel obstruction or free air. Joel Cho MD Abdomen X-Ray 04/15/17 0000 Signed Impressions: Service Date/Time: Saturday, April 15, 2017 08:32 - CONCLUSION: 1. Mildly displaced fracture lateral right 9th rib. 2. No dilated loops of small bowel seen. Jose Dye MD Wrist X-Ray 04/10/17 0000 Signed Impressions: Service Date/Time: Monday, April 10, 2017 18:16 - CONCLUSION: No acute abnormality is seen. There is degenerative change at the first carpometacarpal joint and osteopenia. Yayo Hall MD Head CT 04/10/17 0000 Signed Impressions: Service Date/Time: Monday, April 10, 2017 18:42 - CONCLUSION: Normal examination. Yayo Hall MD Chest CT 04/10/17 0000 Signed Impressions: Service Date/Time: Monday, April 10, 2017 18:46 - CONCLUSION: 1. No definite acute abnormality seen. 2. Chronic appearing interstitial disease of the lower lobes the more proximal right. 3. Cirrhotic appearing liver. The spleen appears enlarged. 4. Coronary artery calcification. Yayo Hall MD PE at Discharge GENERAL: Well-nourished, well-developed pleasant elderly female patient in [facility]. SKIN: Warm and dry. No rash. HEENT: Normocephalic. Atraumatic.Pupils equal and round. Mucous membranes pink and moist. NECK: Supple. Trachea midline. CARDIOVASCULAR: Regular rate and rhythm. S1, S2 noted. No murmur appreciated. RESPIRATORY: No accessory muscle use. Clear to auscultation. Breath sounds equal bilaterally. GASTROINTESTINAL: Abdomen soft, non-tender, nondistended. Normoactive bowel sounds x4. MUSCULOSKELETAL: No obvious deformities. Extremities without clubbing, cyanosis , or edema. NEUROLOGICAL: Awake and alert. No obvious cranial nerve deficits. Motor grossly within normal limits. Normal speech. PSYCHIATRIC: Appropriate mood and affect; insight and judgment normal. Pt update on day of discharge Patient feeling well. Would like to go home. Hospital Course Head CT on admission with no acute findings. Patient was found to have right sided rib fracture Leckner to fall, however left wrist with no acute fractures identified, was splinted to follow up with primary care. Patient developed nausea and vomiting which could be exacerbated by high blood sugar which was controlled, as well as narcotics which were discontinued. GI was consult at, patient underwent esophageal dilation with improvement. She underwent gastric emptying study which was negative, however this was off of narcotics, and with controlled blood sugar at a time which patient was essentially asymptomatic. Patient was also found to have liver cirrhosis on imaging which is consistent with her previous history of autoimmune hepatitis. Patient was discharged to follow-up with primary care, gastroenterology as outpatient. For problem-based summary from most recent progress note, please see below. == 04/17/17.========= = Nausea much improved. Patient has not eaten at the time of exam. Subsequently tolerated food. We'll plan for discharge home tomorrow. //intractable nausea. //Esophageal stricture Much improved after GI dilation. Avoiding narcotics due to suspected gastroparesis. Gastric emptying study ordered by GI and pending. //Diabetes mellitus. Blood sugars acceptable today. Continue diabetic diet, insulin, monitoring. 66-year-old female with a PMH of HTN, Autoimmune Hepatitis, Cirrhosis, DM, Anxiety, Depression and RBBB who presented after syncopal event //Syncope: +lightheadedness/dizziness followed by syncopal event, likely secondary to labile BP, orthostatic hypotension, in combination with dehydration /OSVALDO. Reviewed: CT Head w/ no acute findings. Echo 03/05/16 w/ EF 65%, normal LV function. Patient also reports outpatient nuclear stress test this past year with Dr. Giron which was reportedly unremarkable. -Monitor on telemetry, no acute findings -IVF for hydration. -Orthostatics positive, d/c lasix and nifedipine, given IVF and hali hose, counseled on slow transitions from lying to sitting to standing -PT eval, no PT needed at discharge //Fall: Secondary to syncope as above. Patient was having right rib pain and left wrist pain. Reviewed: CT Chest w/ no acute findings. Wrist X-ray w/ no acute abnormality seen, degenerative change at first carpometacarpal joint and osteopenia -Lidoderm patch -Analgesics as needed. -Wrist splint placed in the ED -Lidoderm patch for right sided rib fracture. //OSVALDO: acute dehydration with chronic kidney disease. Creatinine 1.29, previously 1.17 on 01/22/17. -Much improved. Continue IV fluids in the setting of nausea and vomiting. //HTN: extremely labile BP with +orthostatics -Continue home antihypertensives including clonidine, losartan, metoprolol; d/c lasix and nifedipine -Monitor and adjust regimen as needed -BP improved //Autoimmune Hepatitis: Chronic. Stable LFTs stable in comparison to previous. -On chronic steroid therapy, continue home Prednisone. //DM: Very labile blood sugars, BS 330 on arrival, decreased to 40s overnight. -Continued home Levemir however adjusted dosing, decreased morning dose from 25u to 20u and discontinued evening dose. -Sliding scale w/ Accu-Cheks. 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 -Swallow eval -Antiemetics as needed -Consult patient's tear down matcher, recommends outpatient EGD with dilatation -04/15. Worsened nausea and vomiting. Reconsult GI. Appreciate assistance. -04/16. Much improved after esophageal dilation. Continue to avoid narcotics. Gastroparesis workup pending. Pt Condition on Discharge: Stable Discharge Disposition: Discharge Home Discharge Time: > 30 minutes Discharge Instructions DIET: Follow Instructions for: Heart Healthy Diet, Diabetic Diet Activities you can perform: Regular-No Restrictions Follow up Referrals: Cardiology - 2 Weeks with Kaye Giron MD Endocrinology - 2 Weeks Gastroenterology - 1 Week with Cuong Etienne MD PCP Follow-up - 2-3 Days with Luis Clark Do New Medications: Insulin Detemir Inj (Levemir Inj) 1,000 unit/ 10 ML Vial 30 UNITS SQ DAILY for Blood Sugar Management for 30 Days, #1 VIAL Do not mix with any other Insulin. Changed Medications: Insulin Detemir Inj (Levemir Inj) 1,000 unit/ 10 ML Vial 20 UNITS SQ DAILY for Blood Sugar Management for 30 Days, INJECTION (Changed from: 25 UNITS) Continued Medications: Ascorbic Acid (C-500) 500 Mg Tab.chew 500 MG PO DAILY for Nutritional Supplement Cholecalciferol (Vitamin D3) 1,000 Unit Tab 1000 UNITS PO DAILY for Nutritional Supplement, #1 BOTTLE 0 Refills Cholestyramine (Cholestyramine) 4 Gm/Dose Powd 4 GM PO BID for Dyslipidemia, #1 CAN 0 Refills 1 level scoopful of powder contains 4 grams of cholestyramine. Clonidine (Clonidine) 0.1 Mg Tab 0.1 MG PO TID for Blood Pressure Management, #60 TAB 0 Refills Insulin Aspart Inj (Novolog Inj) 1,000 Unit/10 Ml Vial 0 SQ DIRECTED for Blood Sugar Management, #10 ML 0 Refills Sliding Scale as directed. Lactulose (Encephalopathy) Liq (Enulose Liq) 10 Gm/15 Ml Soln 20 GM PO BID Levothyroxine (Levothyroxine) 75 Mcg Tab 75 MCG PO DAILY for Thyroid, #30 TAB 0 Refills Losartan (Losartan) 100 Mg Tab 100 MG PO DAILY for Blood Pressure Management, #30 TAB 0 Refills Mercaptopurine (Mercaptopurine) 50 Mg Tab 50 MG PO DAILY for Chemotherapy Management, TAB 0 Refills Metoprolol Tartrate (Metoprolol Tartrate) 25 Mg Tab 25 MG PO Q12HR for Blood Pressure Management, #60 TAB Pantoprazole (Pantoprazole) 40 Mg Tab 40 MG PO DAILY for gastric protection, #30 TAB Prednisone (Prednisone) 5 Mg Tab 5 MG PO DAILY, TAB 0 Refills Sertraline (Zoloft) 50 Mg Tab 50 MG PO DAILY, #90 TAB 1 Refill Discontinued Medications: Furosemide (Lasix) 20 Mg Tab 20 MG PO DAILY, #30 TAB 0 Refills Insulin Detemir Inj (Levemir Inj) 1,000 unit/ 10 ML Vial 10 UNITS SQ HS for Blood Sugar Management for 30 Days, VIAL 0 Refills Do not mix with any other Insulin. Nifedipine ER 24 HR (Nifedipine ER 24 HR) 30 Mg Tab 30 MG PO DAILY for blood pressure for 30 Days, TAB Ayden Mittal MD Apr 19, 2017 21:39
== END 2017-04-18 13:53 | disposition home or self-care (01) ==
LOC: NEPD 13:20 → NEDA 20:51 → UNDOADMOB 20:52 → NEDA 23:48 → NEPGCP 23:48 → INTOOBSV 04-13 22:52 → OBSVTOIN 04-13 22:52 → NEPGCP 04-14 01:20 → HIMW 04-14 01:20 → N05A 04-15 20:46 → HIMW 04-15 20:46 → UNDODISOB 04-18 13:53
PROVIDERS: ADMIT Internal Medicine; ATTEND Internal Medicine
DX: R55 Syncope and collapse (principal); I95.1 Orthostatic hypotension; I12.9 Hypertensive chronic kidney disease with stage 1 through stage 4 chronic kidney disease, or unspecified chronic kidney disease; E11.22 Type 2 diabetes mellitus with diabetic chronic kidney disease; N18.9 Chronic kidney disease, unspecified; R18.8 Other ascites; D69.6 Thrombocytopenia, unspecified; S22.31XA Fracture of one rib, right side, initial encounter for closed fracture; E11.65 Type 2 diabetes mellitus with hyperglycemia; D64.9 Anemia, unspecified; E16.0 Drug-induced hypoglycemia without coma; E86.0 Dehydration; K22.2 Esophageal obstruction; K29.70 Gastritis, unspecified, without bleeding; K74.60 Unspecified cirrhosis of liver; K75.4 Autoimmune hepatitis; T38.3X5A Adverse effect of insulin and oral hypoglycemic [antidiabetic] drugs, initial encounter; Z79.52 Long term (current) use of systemic steroids; M25.532 Pain in left wrist; W19.XXXA Unspecified fall, initial encounter; Y92.000 Kitchen of unspecified non-institutional (private) residence as the place of occurrence of the external cause; R07.81 Pleurodynia
CPT/HCPCS: 00740; 43239; 43248; 70450; 71250; 73110; 74000; 74177; 76937; 78264; 80048; 80053; 80069; 80076; 81001; 82010; 82948; 83036; 83690; 83735; 84100; 84443; 84484; 85025; 87641; 88305; 92610; 93005; 96361; 96372; 96374; 96376; 97161; 99285; A9541; C1769; G0378; G8987; G8988; G8996; G8997; G8998; J0360; J1815; J1817; J2405; J2550; J2765; J7030; J7042; J7512; Q9963; Q9967

== ENCOUNTER 2017-04-29 10:47 | Inpatient (IN) | payer OTHER, MEDICARE ==
[~2017-04-29] VITALS: Ht 157.5 cm; Wt 66.4 kg
[~2017-04-29 10:47] MED LIST changes: +CHOL4POW3 PO; -EZET10 PO; -FURO1TAB62 PO; -HUMALOG SQ; -NIFE30TA8 PO; +NOVOLOGP2 SQ; -PRED10 PO; +PRED5TAB PO
[2017-04-29 10:49] VITALS: BP 150/70; PULSE 90; RESP 20; TEMP 98.4; O2SAT 96
[2017-04-29 11:55] LABS: AUTOMATED NEUTROPHIL # 2.2 TH/MM3 (1.8-7.7); BASOPHIL % 0.7 % (0.0-2.0); EOSINOPHIL # 0.1 TH/MM3 (0-0.4); EOSINOPHIL % 1.4 % (0.0-4.0); HEMATOCRIT 28.9 % (35.0-46.0); HEMO FLAGS DIFF FINAL; LYMPH % 23.9 % (9.0-44.0); LYMPHOCYTE # 0.8 TH/MM3 (1.0-4.8); MEAN CORPUSCULAR HEMOGLOBIN 34.1 PG (27.0-34.0); MEAN CORPUSCULAR HGB CONC 33.4 % (32.0-36.0); MONO % 11.2 % (0.0-8.0); NEUT % 62.8 % (16.0-70.0); PLATELET COUNT 122 TH/MM3 (150-450); RED BLOOD COUNT 2.84 MIL/MM3 (4.00-5.30); RED CELL DISTRIBUTION WIDTH 15.3 % (11.6-17.2); WHITE BLOOD COUNT 3.5 TH/MM3 (4.0-11.0)
[2017-04-29 12:13] LABS: PROTHROMBIN TIME - PATIENT 11.4 SEC (9.8-11.6)
[2017-04-29 12:17] LABS: ALKALINE PHOSPHATASE 291 U/L (45-117); ALT (GPT) 40 U/L (10-53); TOTAL BILIRUBIN ADULT 0.4 MG/DL (0.2-1.0)
[2017-04-29 12:23] LABS: ANION GAP 5 MEQ/L (5-15); APTT (PATIENT) 20.5 SEC (24.3-30.1); AST (GOT) 59 U/L (15-37); BICARBONATE 26.7 MEQ/L (21.0-32.0); BLOOD UREA NITROGEN 18 MG/DL (7-18); CHLORIDE 109 MEQ/L (98-107); GLOMERULAR FILTRATION RATE 58 ML/MIN (>89); POTASSIUM 4.5 MEQ/L (3.5-5.1); SODIUM (NA) 141 MEQ/L (136-145)
--- NOTE | 2017-04-29 12:48 | HHI.HP ---
HPI Service [facility] Primary Care Physician Luis Clark DO Admission Diagnosis cranial nerve palsy Diagnoses: Chief Complaint: right eye ptosis, headache Travel History International Travel<30 Days: No Contact w/Intl Traveler <30 Da: No Traveled to Known Affected Are: No History of Present Illness Written by Lela Raymond, acting as scribe for Dr. Mittal on 04/29/17 at 12: 45. 66-year-old female with history of autoimmune hepatitis, cirrhosis, diabetes mellitus, anxiety, depression, hypertension, presents with a 2-3 day history of headache, right eye ptosis, and blurred vision. The patient reports 2-3 days ago she started to notice that she was unable to open her right eye. When she opens the eye with the assistance of her hands, she reports blurred vision from the eye. She also has constant throbbing right frontotemporal pain. She reports history of temporal arteritis so she thought maybe this is what was causing her symptoms and decided to double her prednisone dosing to 10mg which did not relieve her symptoms. She denies any dizziness or lightheadedness, but does report some gait instability and she tends to lean to the left side when ambulating. She also complains of abdominal distention and constipation. Her last BM was yesterday however she still feels constipated. She had an episode of nausea/vomiting a few nights ago, but none recent. She denies any chest pain however did have an episode of heart palpitations last night that went away on its own. Denies any fevers/chills or shortness of breath. She denies any other medical complaints at this time. Her neurologist is Dr. Capsp. Review of Systems Except as stated in HPI: all other systems reviewed are Neg Past Family Social History Past Medical History Autoimmune hepatitis Cirrhosis Temporal arteritis Diabetes mellitus Anxiety Depression Hypertension RBBB Esophageal stricture Past Surgical History Hysterectomy Liver/Breast biopsy Appendectomy EGD with dilatation Reported Medications Reported Meds & Active Scripts Active Levemir Inj (Insulin Detemir) 1,000 unit/ 10 ML Vial 30 Units SQ DAILY 30 Days Do not mix with any other Insulin. Clonidine (Clonidine HCl) 0.1 Mg Tab 0.1 Mg PO TID Pantoprazole (Pantoprazole Sodium) 40 Mg Tab 40 Mg PO DAILY Metoprolol Tartrate 25 Mg Tab 25 Mg PO Q12HR Zoloft (Sertraline HCl) 50 Mg Tab 50 Mg PO DAILY Reported Cholestyramine 4 Gm/Dose Powd 4 Gm PO BID 1 level scoopful of powder contains 4 grams of cholestyramine. Prednisone 5 Mg Tab 5 Mg PO DAILY Novolog Inj (Insulin Aspart) 1,000 Unit/10 Ml Vial 0 SQ DIRECTED Sliding Scale as directed. Losartan (Losartan Potassium) 100 Mg Tab 100 Mg PO DAILY C-500 (Ascorbic Acid) 500 Mg Tab.chew 500 Mg PO DAILY Vitamin D3 (Cholecalciferol) 1,000 Unit Tab 1,000 Units PO DAILY Levothyroxine (Levothyroxine Sodium) 75 Mcg Tab 75 Mcg PO DAILY Mercaptopurine 50 Mg Tab 50 Mg PO DAILY Enulose Liq (Lactulose (Encephalopathy) Liq) 10 Gm/15 Ml Soln 20 Gm PO BID Allergies: Coded Allergies: doxycycline (Unverified Allergy, Severe, Rash, 04/10/17) minocycline (Unverified Allergy, Severe, Rash, 04/10/17) morphine (Unverified Allergy, Severe, Rash, 04/10/17) penicillin G (Unverified Allergy, Severe, Rash, 04/10/17) tigecycline (Unverified Allergy, Severe, Rash, 04/10/17) Sulfa (Sulfonamide Antibiotics) (Unverified Allergy, Unknown, Rash, 04/10/17 ) clindamycin (Unverified Allergy, Unknown, Nausea/Vomiting, 04/10/17) Family History No reported history of heart disease or diabetes. Social History Denies any tobacco, alcohol, or illicit drug use. Physical Exam Vital Signs Vital Signs Date Time Temp Pulse Resp B/P (MAP) Pulse Ox O2 Delivery O2 Flow Rate FiO2 04/29/17 10:49 98.4 90 20 150/70 (96) 96 Room Air Physical Exam GENERAL: Well-nourished, well-developed pleasant female patient in [facility]. SKIN: No rashes, ecchymoses or lesions. Cool and dry. HEAD: Atraumatic. Normocephalic. No temporal or scalp tenderness. EYES: Right eye ptosis, right eye with decreased EOM, worse with left medial gaze. Pupils equal round and reactive. Left eye EOM intact. ENT: Nose without bleeding, purulent drainage or septal hematoma. Airway patent. NECK: Trachea midline. No JVD or lymphadenopathy. Supple, nontender. CARDIOVASCULAR: Regular rate and rhythm without murmurs, gallops, or rubs. RESPIRATORY: Clear to auscultation. Breath sounds equal bilaterally. No wheezes , rales, or rhonchi. GASTROINTESTINAL: Abdomen soft, non-tender, nondistended. No hepato-splenomegaly , or palpable masses. No guarding. MUSCULOSKELETAL: Extremities without clubbing, cyanosis, or edema. No obvious deformities. LUE in splint. NEUROLOGICAL: Awake and alert. 5/5 muscle strength in all muscle groups. Normal speech. Laboratory Laboratory Tests Test 04/29/17 11:40 White Blood Count 3.5 Red Blood Count 2.84 Hemoglobin 9.7 Hematocrit 28.9 Mean Corpuscular Volume 102.0 Mean Corpuscular Hemoglobin 34.1 Mean Corpuscular Hemoglobin Concent 33.4 Red Cell Distribution Width 15.3 Platelet Count 122 Mean Platelet Volume 8.9 Neutrophils (%) (Auto) 62.8 Lymphocytes (%) (Auto) 23.9 Monocytes (%) (Auto) 11.2 Eosinophils (%) (Auto) 1.4 Basophils (%) (Auto) 0.7 Neutrophils # (Auto) 2.2 Lymphocytes # (Auto) 0.8 Monocytes # (Auto) 0.4 Eosinophils # (Auto) 0.1 Basophils # (Auto) 0.0 CBC Comment DIFF FINAL Differential Comment Prothrombin Time 11.4 Prothromb Time International Ratio 1.0 Activated Partial Thromboplast Time 20.5 Blood Urea Nitrogen 18 Creatinine 0.96 Random Glucose 212 Total Protein 7.4 Albumin 2.7 Calcium Level 8.6 Alkaline Phosphatase 291 Aspartate Amino Transf (AST/SGOT) 59 Alanine Aminotransferase (ALT/SGPT) 40 Total Bilirubin 0.4 Sodium Level 141 Potassium Level 4.5 Chloride Level 109 Carbon Dioxide Level 26.7 Anion Gap 5 Estimat Glomerular Filtration Rate 58 C-Reactive Protein 0.54 Result Diagram: 04/29/17 1140 04/29/17 1140 Caprini VTE Risk Assessment Caprini VTE Risk Assessment: Mod/High Risk (score >= 2) Caprini Risk Assessment Model Point Value = 1 Point Value = 2 Point Value = 3 Point Value = 5 Age 41-60 Minor surgery BMI > 25 kg/m2 Swollen legs Varicose veins or History of unexplained or recurrent spontaneous Oral contraceptives or hormone replacement Sepsis (< 1 month) Serious lung disease, including pneumonia (< 1 month) Abnormal pulmonary function Acute myocardial infarction Congestive heart failure (< 1 month) History of inflammatory bowel disease Medical patient at bed rest Age 61-74 Arthroscopic surgery Major open surgery (> 45 min) Laparoscopic surgery (> 45 min) Malignancy Confined to bed (> 72 hours) Immobilizing plaster cast Central venous access Age >= 75 History of VTE Family history of VTE Factor V Leiden Prothrombin [id number] Lupus anticoagulant Anticardiolipin antibodies Elevated serum homocysteine Heparin-induced thrombocytopenia Other congenital or acquired thrombophilia Stroke (< 1 month) Elective arthroplasty Hip, pelvis, or leg fracture Acute spinal cord injury (< 1 month) Prophylaxis Regimen Total Risk Factor Score Risk Level Prophylaxis Regimen 0-1 Low Early ambulation 2 Moderate Order ONE of the following: *Sequential Compression Device (SCD) *Heparin 5000 units SQ BID 3-4 Higher Order ONE of the following medications: *Heparin 5000 units SQ TID *Enoxaparin/Lovenox 40 mg SQ daily (WT < 150 kg, CrCl > 30 mL/min) *Enoxaparin/Lovenox 30 mg SQ daily (WT < 150 kg, CrCl > 10-29 mL/min) *Enoxaparin/Lovenox 30 mg SQ BID (WT < 150 kg, CrCl > 30 mL/min) AND/OR *Sequential Compression Device (SCD) 5 or more Highest Order ONE of the following medications: *Heparin 5000 units SQ TID (Preferred with Epidurals) *Enoxaparin/Lovenox 40 mg SQ daily (WT < 150 kg, CrCl > 30 mL/min) *Enoxaparin/Lovenox 30 mg SQ daily (WT < 150 kg, CrCl > 10-29 mL/min) *Enoxaparin/Lovenox 30 mg SQ BID (WT < 150 kg, CrCl > 30 mL/min) AND *Sequential Compression Device (SCD) Assessment and Plan Problem List: (1) Cranial nerve III palsy ICD Code: H49.00 - Third [oculomotor] nerve palsy, unspecified eye (2) Temporal arteritis ICD Code: M31.6 - Other giant cell arteritis Status: Acute (3) Type 2 diabetes mellitus ICD Code: E11.9 - Type 2 diabetes mellitus without complications Status: Chronic Assessment and Plan 66-year-old female with history of autoimmune hepatitis, cirrhosis, diabetes mellitus, anxiety, depression, hypertension, presents with a 2-3 day history of headache, right eye ptosis, and blurred vision. Cranial Nerve III Palsy: with suspected flare of Temporal Arteritis. -start on high dose steroids with IV Solumedrol 500mg bid -monitor neuro checks -check brain MRI/MRA -check ESR/CRP -pain control with oxycodone prn -consult patient's neurologist Dr. Capps Diabetes Mellitus: patient has long history of very labile blood sugars. HgbA1c 8.7 on 04/11/17. -continue patient's home Levemir 30u sq daily -Monitor Accu-checks, cover with medium dose SSI -hypoglycemia protocol Autoimmune Hepatitis & Cirrhosis: chronic, stable -continue outpatient f/up with coin teller Dr. Etienne -bowel regimen while on pain medications Hypertension: chronic, stable -continue home meds including clonidine, metoprolol; hold her losartan for now -monitor her BP, adjust antihypertensives as needed Anxiety/Depression: chronic, stable -continue home medications including Zoloft Hypothyroidism: chronic, stable -continue patient's levothyroxine DVT Prophylaxis: heparin sq Discussed Condition With Patient, Dr. Cruz This note was transcribed by [email or web address] [Lela Raymond]. I, Dr. Ayden Mittal personally performed the history, physical exam, and medical decision making; and confirmed the accuracy of the information in the transcribed note. Authenticated by Dr. Ayden Mittal on 04/30/17 at 19:01. Physician Certification 2 Midnight Certification Type: Admission for Inpatient Services Order for Inpatient Services The services are ordered in accordance with Medicare regulations or non- Medicare payer requirements, as applicable. In the case of services not specified as inpatient-only, they are appropriately provided as inpatient services in accordance with the 2-midnight benchmark. Estimated LOS (days): 3 days is the estimated time the patient will need to remain in the hospital, assuming treatment plan goals are met and no additional complications. Post-Hospital Plan: Not yet determined Lela Raymond PA-C Apr 29, 2017 12:48 Ayden Mittal MD Apr 30, 2017 19:01
[2017-04-29] MEDS ORDERED: NALOXONE HCL 0.4 MG/ML AMP IV PUSH PRN (13:00)
[2017-04-29] MEDS ORDERED: LACTULOSE SYRUP 20 GM/30 ML CUP PO PRN (13:00)
[2017-04-29] MEDS ORDERED: MAGNESIUM HYDROXIDE SUSP 30 ML CUP PO PRN (13:00)
[2017-04-29] MEDS ORDERED: SENNOSIDES 8.6 MG TAB PO PRN (13:00)
[2017-04-29] MEDS ORDERED: SODIUM CHLORIDE 0.9% FLUSH 10 ML FLUSH IV FLUSH PRN (13:00)
[2017-04-29] MEDS ORDERED: BISACODYL 10 MG SUPP RECTAL PRN (13:00)
[2017-04-29] MEDS ORDERED: predniSONE 50 MG TAB PO ONE (13:15)
[2017-04-29] MEDS ORDERED: diphenhydrAMINE HCL 50 MG/ML VIAL IV PUSH PRN (13:30)
[2017-04-29] MEDS ORDERED: methylPREDNISolone SOD SUCC 40 MG/1 ML VIAL IV PUSH ONE (13:30)
--- NOTE | 2017-04-29 13:32 | RADRPT ---
EXAM DATE/TIME: 04/29/2017 13:08 [facility] COMPARISON: No previous studies available for comparison. INDICATIONS : Unable to open right eye. MEDICAL HISTORY : Diabetes mellitus type 2. Cirrhosis. Hypothyroidism. Autoimmune hepatits. Right temporal arteritis. SURGICAL HISTORY : Hysterectomy. Appendectomy. Oophrectomy. ENCOUNTER: Initial ACUITY: 2 day PAIN SCORE: 0/10 LOCATION: head. Please note a normal MRA of the brain does not entirely exclude the possibility of a small aneurysm, nor the possibility of distal intracranial vessel disease. TECHNIQUE: 3D time of flight MRA was performed. Source images, multiplanar STS MIP, and 3D volume MIP reconstru ctions were reviewed. FINDINGS: There is excellent visualization of the major intracranial arteries out to the second-order branch ve ssels. There is no evidence for aneurysm, vessel truncation or stenosis, and no evidence for vascula r malformation. CONCLUSION: Negative for major branch vessel occlusion. Marco Chaudhari MD FACR on April 29, 2017 at 13:30 Board Certified Radiologist. This report was verified electronically.
[2017-04-29] MEDS ORDERED: GADODIAMIDE PF 287 MG/ML 5 ML VIAL (for RAD MRI) IVCONTRAST ONE (13:44)
--- NOTE | 2017-04-29 13:53 | RADRPT ---
EXAM DATE/TIME: 04/29/2017 13:08 [facility] COMPARISON: CT BRAIN W/O CONTRAST, April 10, 2017, 18:42. INDICATIONS : Unable to open right eye. CONTRAST: 12 cc Omniscan (gadodiamide) IV MEDICAL HISTORY : Diabetes mellitus type 2. Cirrhosis. Hypothyroidism. Autoimmune hepatitis. Right temporal arteritis. SURGICAL HISTORY : Hysterectomy. Appendectomy. Oophrectomy. ENCOUNTER: Initial ACUITY: 2 day PAIN SCORE: 0/10 LOCATION: head. TECHNIQUE: Multiplanar, multisequence MRI of the brain was performed both prior to and following the administrat ion of paramagnetic contrast. FINDINGS: CEREBRUM: There is mild cerebral atrophy. Ventricles are normal in size given the degree of atrophy. No eviden ce of midline shift, mass lesion, hemorrhage or acute infarction. No extraaxial fluid collections ar e seen. The pituitary gland and suprasellar cistern are normal in configuration. WHITE MATTER: There is mild periventricular and subcortical white matter signal change bilaterally. POSTERIOR FOSSA: The cerebellum and brainstem demonstrate no acute finding. The 4th ventricle is midline. The cerebel lopontine angle is unremarkable. The cerebellar tonsils are normal in position. DIFFUSION IMAGING: No focal areas of restricted diffusion are seen. No evidence of acute infarction. EXTRACRANIAL: The visualized portions of the orbits and paranasal sinuses are unremarkable. POST-CONTRAST: No abnormal areas of parenchymal or dural enhancement. No evidence of blood-brain barrier breakdown. CONCLUSION: 1. No acute intracranial abnormality is identified. 2. Chronic and age-appropriate related changes include generalized cerebral atrophy and mild perivent ricular and subcortical white matter signal changes characteristic of chronic microvascular ischemia. Yayo Renee MD on April 29, 2017 at 13:48 Board Certified Radiologist. This report was verified electronically.
--- NOTE | 2017-04-29 14:03 | PD ---
HPI Chief Complaint: Neuro Symptoms/ Deficits Time Seen by Provider: 11:11 Travel History International Travel<30 days: No Contact w/Intl Traveler<30days: No Traveled to known affect area: No History of Present Illness HPI Is a 66-year-old woman who presents to the emergency department with right sided eyelid drooping. She has a history of autoimmune hepatitis as well as giant cell arteritis. She is currently on redness on. She started having worsening headache pain that she attributes to her giant cell arteritis about a week or so ago. She doubled up on her prednisone thinking it would help. He does not help. Today she started over the past couple days she's noticed double vision. Today she noticed eyelid drooping and difficulty opening her eyes. She's never had these symptoms before. She denies any other neurologic symptoms. No other complaints. History Past Medical History Narrative Medical Autoimmune hepatitis, cirrhosis Giant cell arteritis Social History Alcohol Use: Yes (PT DENIES) Tobacco Use: No Allergies-Medications (Allergen,Severity, Reaction): Coded Allergies: doxycycline (Unverified Allergy, Severe, Rash, 04/10/17) minocycline (Unverified Allergy, Severe, Rash, 04/10/17) morphine (Unverified Allergy, Severe, Rash, 04/10/17) penicillin G (Unverified Allergy, Severe, Rash, 04/10/17) tigecycline (Unverified Allergy, Severe, Rash, 04/10/17) Sulfa (Sulfonamide Antibiotics) (Unverified Allergy, Unknown, Rash, 04/10/17 ) clindamycin (Unverified Allergy, Unknown, Nausea/Vomiting, 04/10/17) Reported Meds & Prescriptions Reported Meds & Active Scripts Active Levemir Inj (Insulin Detemir) 1,000 unit/ 10 ML Vial 30 Units SQ DAILY 30 Days Do not mix with any other Insulin. Clonidine (Clonidine HCl) 0.1 Mg Tab 0.1 Mg PO TID Pantoprazole (Pantoprazole Sodium) 40 Mg Tab 40 Mg PO DAILY Metoprolol Tartrate 25 Mg Tab 25 Mg PO Q12HR Zoloft (Sertraline HCl) 50 Mg Tab 50 Mg PO DAILY Reported Cholestyramine 4 Gm/Dose Powd 4 Gm PO BID 1 level scoopful of powder contains 4 grams of cholestyramine. Prednisone 5 Mg Tab 5 Mg PO DAILY Novolog Inj (Insulin Aspart) 1,000 Unit/10 Ml Vial 0 SQ DIRECTED Sliding Scale as directed. Losartan (Losartan Potassium) 100 Mg Tab 100 Mg PO DAILY C-500 (Ascorbic Acid) 500 Mg Tab.chew 500 Mg PO DAILY Vitamin D3 (Cholecalciferol) 1,000 Unit Tab 1,000 Units PO DAILY Levothyroxine (Levothyroxine Sodium) 75 Mcg Tab 75 Mcg PO DAILY Mercaptopurine 50 Mg Tab 50 Mg PO DAILY Enulose Liq (Lactulose (Encephalopathy) Liq) 10 Gm/15 Ml Soln 20 Gm PO BID Review of Systems Except as stated in HPI: all other systems reviewed are Neg Physical Exam Narrative GENERAL: Well-appearing 66-year-old woman, no acute distress. SKIN: Focused skin assessment warm/dry. HEAD: Atraumatic. Normocephalic. EYES: Pupils equal and round. No scleral icterus. No injection or drainage. ENT: No nasal bleeding or discharge. Mucous membranes pink and moist. NECK: Trachea midline. No JVD. CARDIOVASCULAR: Regular rate and rhythm. No murmur appreciated. RESPIRATORY: No accessory muscle use. Clear to auscultation. Breath sounds equal bilaterally. GASTROINTESTINAL: Abdomen soft, non-tender, nondistended. Hepatic and splenic margins not palpable. MUSCULOSKELETAL: No obvious deformities. No clubbing. No cyanosis. No edema. NEUROLOGICAL: Awake and alert. She has some flattening of the right side of forehead and obvious ptosis on the right eyelid. She is unable to open the eye without assistance. She has obvious disconjugate gaze and complete paralysis in her medial gaze. She is limited upward an downward gaze as well. Data Data Last Documented VS Vital Signs Date Time Temp Pulse Resp B/P (MAP) Pulse Ox O2 Delivery O2 Flow Rate FiO2 04/29/17 10:49 98.4 90 20 150/70 (96) 96 Room Air Orders Orders Complete Blood Count With Diff (04/29/17 11:28) Comprehensive Metabolic Panel (04/29/17 11:28) Act Partial Throm Time (Ptt) (04/29/17 11:28) Prothrombin Time / Inr (Pt) (04/29/17 11:28) Iv Access Insert/Monitor (04/29/17 11:28) Westergren Sedimentation Rate (04/29/17 11:44) C-Reactive Protein (Crp) (04/29/17 11:44) Mri Brain W&W/O Contrast (04/29/17 ) Mra Brain W/O Contrast (Cow) (04/29/17 ) Admit Order (Ed Use Only) (04/29/17 ) Labs Laboratory Tests Test 04/29/17 11:40 White Blood Count 3.5 TH/MM3 Red Blood Count 2.84 MIL/MM3 Hemoglobin 9.7 GM/DL Hematocrit 28.9 % Mean Corpuscular Volume 102.0 FL Mean Corpuscular Hemoglobin 34.1 PG Mean Corpuscular Hemoglobin Concent 33.4 % Red Cell Distribution Width 15.3 % Platelet Count 122 TH/MM3 Mean Platelet Volume 8.9 FL Neutrophils (%) (Auto) 62.8 % Lymphocytes (%) (Auto) 23.9 % Monocytes (%) (Auto) 11.2 % Eosinophils (%) (Auto) 1.4 % Basophils (%) (Auto) 0.7 % Neutrophils # (Auto) 2.2 TH/MM3 Lymphocytes # (Auto) 0.8 TH/MM3 Monocytes # (Auto) 0.4 TH/MM3 Eosinophils # (Auto) 0.1 TH/MM3 Basophils # (Auto) 0.0 TH/MM3 CBC Comment DIFF FINAL Differential Comment Prothrombin Time 11.4 SEC Prothromb Time International Ratio 1.0 RATIO Activated Partial Thromboplast Time 20.5 SEC Blood Urea Nitrogen 18 MG/DL Creatinine 0.96 MG/DL Random Glucose 212 MG/DL Total Protein 7.4 GM/DL Albumin 2.7 GM/DL Calcium Level 8.6 MG/DL Alkaline Phosphatase 291 U/L Aspartate Amino Transf (AST/SGOT) 59 U/L Alanine Aminotransferase (ALT/SGPT) 40 U/L Total Bilirubin 0.4 MG/DL Sodium Level 141 MEQ/L Potassium Level 4.5 MEQ/L Chloride Level 109 MEQ/L Carbon Dioxide Level 26.7 MEQ/L Anion Gap 5 MEQ/L Estimat Glomerular Filtration Rate 58 ML/MIN C-Reactive Protein 0.54 MG/DL MDM Medical Decision Making Medical Screen Exam Complete: Yes Emergency Medical Condition: Yes Differential Diagnosis Weakness, cranial nerve III palsy, dural vein thrombosis, septic vein thrombosis , other Narrative Course Medical decision making Is a 66-year-old woman who presents emergency Department with appears to be cranial nerve III palsy, history of giant cell arteritis. I spoke with Dr. Peralta , her neurologist. He will come and see the patient. Recommends MRI, admission. Diagnosis Primary Impression: Cranial nerve III palsy Admitting Information Admitting Physician Requests: Admit Kane Cruz MD Apr 29, 2017 14:02
[2017-04-29] MEDS: HEPARIN SODIUM - SQ 10,000 UNITS/ML VIAL SQ SCH (14:19)
[2017-04-29] MEDS: LACTULOSE SYRUP 20 GM/30 ML CUP PO SCH ×2 (14:19→21:27)
[2017-04-29] MEDS ORDERED: INSULIN DETEMIR 100 UNITS/ML VIAL SQ ONE (15:00)
[2017-04-29] MEDS ORDERED: methylPREDNISolone SO SUCC INJ 1,000 MG in DEXTROSE 5% IN WATER 100ML INJ 100 ML IV ONE ×2 (15:00)
[2017-04-29 15:33] VITALS: BP 210/106; PULSE 92; RESP 18; O2SAT 96
[2017-04-29] MEDS ORDERED: ONDANSETRON HCL 4 MG/2 ML VIAL IV PUSH PRN (16:00)
[2017-04-29] MEDS ORDERED: cloNIDine HCL 0.1 MG TAB PO ONE (16:00)
[2017-04-29] MEDS: LEVOTHYROXINE SODIUM 75 MCG TAB PO SCH (16:14)
[2017-04-29] MEDS: cloNIDine HCL 0.1 MG TAB PO SCH ×2 (16:14→17:42)
[2017-04-29 16:52] VITALS: BP 223/122; PULSE 113; RESP 20; TEMP 98.5; O2SAT 96
[2017-04-29] MEDS ORDERED: INSULIN ASPART SUPPLEMENTAL SCALE SQ SCH (17:00)
[2017-04-29] MEDS ORDERED: DEXTROSE 50% IN WATER 50 ML VIAL(D50) IV PUSH PRN (17:15)
[2017-04-29] MEDS ORDERED: GLUCAGON 1 MG/ML VIAL OTHER PRN (17:15)
[2017-04-29] MEDS: INSULIN ASPART SUPPLEMENTAL SCALE SQ SCH ×2 (17:43→21:00)
[2017-04-29 17:46] VITALS: BP 194/91; PULSE 70
[2017-04-29 17:48] LABS: HEMOGLOBIN A1a 1.4 %; HEMOGLOBIN A1b 0.9 %; HEMOGLOBIN F 1.6 %; HEMOGLOBIN LA1C 2.3 %
[2017-04-29 17:49] LABS: HEMOGLOBIN Ao 81.6 %; HEMOGLOBIN P3 4.4 %
[2017-04-29 19:46] VITALS: BP 162/77; PULSE 64; RESP 20; TEMP 98.6; O2SAT 94
[2017-04-29] MEDS ORDERED: IOHEXOL 350 MG/ML 10 ML VIAL (for RAD DIAG) IVCONTRAST ONE (20:57)
[2017-04-29] MEDS: SODIUM CHLORIDE 0.9% FLUSH 10 ML FLUSH IV FLUSH SCH (21:00)
--- NOTE | 2017-04-29 21:24 | RADRPT ---
EXAM DATE/TIME: 04/29/2017 21:02 [facility] COMPARISON: ABDOMEN KUB ONLY, April 15, 2017, 8:32. INDICATIONS : Nausea. MEDICAL HISTORY : Cardiovascular disease. Cirrhosis. Hypertension. autoimmune hepatitis SURGICAL HISTORY : Hysterectomy. ENCOUNTER: Subsequent ACUITY: 2 days PAIN SCORE: 0/10 LOCATION: Bilateral abdomen FINDINGS: There is a nonspecific bowel gas pattern. Air is noted throughout the colon and within several loops of small intestine but no significant dilatation is noted. Contrast is noted within the collecting s ystems and ureters bilaterally. Degenerative changes and mild scoliosis of the lumbar spine are note d. CONCLUSION: 1. Nonspecific bowel gas pattern without obstruction. 2. Mild degenerative changes and scoliosis of the lumbar spine. Lex Higuera MD on April 29, 2017 at 21:20 Board Certified Radiologist. This report was verified electronically.
[2017-04-29 21:26] VITALS: BP 185/84
[2017-04-29] MEDS: METOPROLOL TARTRATE 25 MG TAB PO SCH (21:27)
--- NOTE | 2017-04-29 23:37 | EKG ---
Date Performed: 04/29/2017 Time Performed: 15:21:21 PTAGE: 66 years EKG: Sinus rhythm POSSIBLE LEFT ATRIAL ENLARGEMENT INFERIOR MYOCARDIAL INFARCTION ABNORMAL ECG PREVIOUS TRACING : 04/10/2017 14.21 Compared to the previous tracing, rate has increased DOCTOR: Manish Doe Interpretating Date/Time 04/29/2017 23:35:59
--- NOTE | 2017-04-29 23:40 | RADRPT ---
EXAM DATE/TIME: 04/29/2017 20:38 [facility] COMPARISON: No previous studies available for comparison. INDICATIONS : Confusion, aneurysm. IV CONTRAST: 75 cc Omnipaque 350 (iohexol) IV RADIATION DOSE: 16.31 CTDIvol (mGy) MEDICAL HISTORY : Hypertension. Autoimmune Hep, RBBB. SURGICAL HISTORY : Hysterectomy. ENCOUNTER: Initial ACUITY: 1 day PAIN SCALE: 3/10 LOCATION: Bilateral neck region. Elevated flow velocities and ICA/CCA ratios have been found to correlate with increased degrees of vessel stenosis, calculated as percentage of diameter relative to a normal segment of distal ICA/CCA. TECHNIQUE: Volumetric scanning was performed using a multirow detector CT scanner. The data was post processed with a variety of visualization algorithms including full-volume maximum intensity projection, multip lanar sliding thin-slab reformation, curved-planar reformation, and surface-rendering techniques. Us ing automated exposure control and adjustment of the mA and/or kV according to patient size, radiatio n dose was kept as low as reasonably achievable to obtain optimal diagnostic quality images. DICOM f ormat image data is available electronically for review and comparison. FINDINGS: AORTIC ARCH: There is a bovine arch. No No evidence of ostial narrowing. RIGHT CAROTID: The common carotid artery is intact. The carotid bulb has a normal configuration without ulceration o r narrowing. The internal carotid artery lumen is smooth without stenosis. The external carotid shannen ry is intact. LEFT CAROTID: The common carotid artery is intact. The carotid bulb has a normal configuration without ulceration or narrowing. The internal carotid artery lumen is smooth without stenosis. The external carotid ar valentin is intact. VERTEBRALS: The vertebral arteries have a symmetric diameter. No stenotic lesions are seen. CONCLUSION: No acute disease. Lex Higuera MD on April 29, 2017 at 23:37 Board Certified Radiologist. This report was verified electronically.
[2017-04-30] VITALS (9 sets, daily range): BP systolic 144–218; BP diastolic 67–102; PULSE 55–75; RESP 18–31; TEMP 97.6–98.4; O2SAT 93–96
[2017-04-30] MEDS: HEPARIN SODIUM - SQ 10,000 UNITS/ML VIAL SQ SCH ×2 (02:12→13:52)
[2017-04-30] MEDS ORDERED: cloNIDine HCL 0.1 MG TAB PO ONE (04:45)
--- NOTE | 2017-04-30 05:27 | MB ---
cc: RA CARRIEID DATE OF CONSULTATION 04/29/2017 REASON FOR CONSULTATION Acute right ptosis, blurred vision. HISTORY OF PRESENT ILLNESS Ms. Mooney is a 66-year-old female with a past medical history of diabetes mellitus, cirrhosis, autoimmune hepatitis, temporal arteritis on steroid therapy, anxiety, depression, hypertension who presented to the [facility] Emergency Room with a complaint of three-day duration blurred and double vision of the right eye, followed by right eye ptosis and mild headache over the right eye that was transient. The patient thought this is a relapse of temporal arteritis and increased the dose of her maintenance prednisone of 5 mg to 10 mg. The patient was recently admitted to the hospital for markedly uncontrolled blood pressure and blood sugar. The patient denies any dizziness, slurred speech, facial droop, facial numbness, weakness of an extremity, loss of consciousness or convulsions. Upon presentation to the emergency room the blood pressure was 223/122 with a heart rate of 130 and blood sugar was 212. REVIEW OF SYSTEMS A 12-point review of systems is negative except for what is stated in the HPI. PAST MEDICAL HISTORY 1. Autoimmune hepatitis. 2. Cirrhosis. 3. Temporal arteritis. 4. Diabetes mellitus. 5. Anxiety depression. 6. Hypertension. 7. Right bundle branch block. 8. Esophageal stricture. PAST SURGICAL HISTORY 1. Hysterectomy. 2. Liver biopsy. 3. Breast biopsy. 4. Appendectomy. 5. EGD with dilatation. MEDICATIONS 1. Levemir. 2. Clonidine. 3. Pantoprazole. 4. Metoprolol. 5. Zoloft. 6. Cholestyramine. 7. Prednisone. 8. Losartan. 9. Ascorbic acid. 10. D3. 11. Levthyroxine. 12. Mercaptopurine. ALLERGIES DOXYCYCLINE. MINOCYCLINE. MORPHINE. PENICILLIN G. TIGECYCLINE. SULFA. CLINDAMYCIN. FAMILY HISTORY Noncontributory. SOCIAL HISTORY Denies alcohol, tobacco or illicit drug abuse. PHYSICAL EXAMINATION GENERAL: Awake, alert, pleasant, not in apparent distress. HEENT: Atraumatic, normocephalic. Right eye ptosis. NECK: No signs of meningeal irritation. No tenderness. No bruits. CARDIOVASCULAR: Regular rate and rhythm. RESPIRATORY: Clear to auscultation. No wheezes. GASTROINTESTINAL: Soft, nontender. MUSCULOSKELETAL: Moves all extremities. Left upper extremity in splint after she fell. NEUROLOGICAL: Awake, alert, oriented to time, person and place. No dysarthria. No dysphasia. Cranial nerve examination revealed a right eye ptosis. Pupils 2-mm, reacting equally to light. Right third cranial nerve palsy. Diplopia on looking to the right. No nystagmus. No facial asymmetry. 5 /5 bilateral symmetrical. Normal tone. No abnormal movements. Sensation is intact, bilateral and symmetrical, but for diminished in a glove-stocking distribution for light touch and temperature. Reflexes 1+ bilateral and symmetrical. Sluggish ankle reflexes. Plantar bilaterally downgoing. Intact [id number] and lbhm-di-[id number]. PSYCHOLOGICAL: Intact mood and behavior. No hallucinations. LABORATORY DATA White blood count 3.5, hemoglobin 9.7, MCV 102. Sed rate 39. Sodium of 141, potassium 4.5, random glucose 212, A1c 7.9, calcium 8.6, AST 59, alkaline phosphatase 291. C-reactive protein 0.54, albumin 2.7. DIAGNOSTIC IMAGING - Brain MRI with no acute intracranial abnormality, chronic age-appropriate related changes with cerebral atrophy and mild periventricular and subcortical white matter changes characteristic of chronic microvascular ischemia. - Head MRA negative for major branch vessel occlusion. DIAGNOSTIC IMPRESSION 1. Right third cranial nerve palsy. 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 2.Temporal arteritis currently on 5 mg prednisone. 3. Mild elevation of sed rate and C-reactive protein. 4. Diabetes mellitus. 5. Autoimmune hepatitis and cirrhosis. 6. Hypertension. PLAN 1. Neuro checks q. 4 hours. 2. Prednisone 10 mg daily. 3. No indication for intravenous steroids. 4. CTA neck w/o contrast 5. Tight control of blood sugar and blood pressure. 6. OT recommendations are appreciated. 7. Fall precautions. Thank you for the opportunity to participate in the care of your patient. MD ROSALINDA Hernandez/RENE /10:24 PM /5:00 AM TERRY
[2017-04-30] MEDS: LEVOTHYROXINE SODIUM 75 MCG TAB PO SCH (05:33)
[2017-04-30] MEDS: INSULIN ASPART SUPPLEMENTAL SCALE SQ SCH ×4 (08:00→21:24)
[2017-04-30] MEDS: cloNIDine HCL 0.1 MG TAB PO SCH ×3 (08:05→17:39)
[2017-04-30] MEDS: LACTULOSE SYRUP 20 GM/30 ML CUP PO SCH ×2 (08:05→21:23)
[2017-04-30] MEDS: METOPROLOL TARTRATE 25 MG TAB PO SCH ×2 (08:05→21:23)
[2017-04-30] MEDS: CHOLECALCIFEROL (VIT D3) 1000 UNIT TAB PO SCH (08:05)
[2017-04-30] MEDS: PANTOPRAZOLE SOD 40 MG DELAYED RELEASE TAB PO SCH (08:05)
[2017-04-30] MEDS: SERTRALINE HCL 50 MG TAB PO SCH (08:05)
[2017-04-30] MEDS: SODIUM CHLORIDE 0.9% FLUSH 10 ML FLUSH IV FLUSH SCH ×2 (08:06→21:23)
[2017-04-30] MEDS: INSULIN DETEMIR 100 UNITS/ML VIAL SQ SCH (08:07)
[2017-04-30] MEDS ORDERED: predniSONE 50 MG TAB PO SCH (09:00)
[2017-04-30] MEDS ORDERED: methylPREDNISolone SOD SUCC 40 MG/1 ML VIAL IV PUSH SCH (09:00)
[2017-04-30] MEDS: LOSARTAN 50 MG TAB PO SCH (09:58)
[2017-04-30] MEDS: MERCAPTOPURINE 50 MG TAB PO SCH (09:58)
[2017-04-30] MEDS: NIFEdipine 30 MG SUSTAINED RELEASE TAB PO SCH (09:58)
[2017-04-30 11:20] LABS: AUTOMATED NEUTROPHIL # 3.7 TH/MM3 (1.8-7.7); BASOPHIL % 0.1 % (0.0-2.0); EOSINOPHIL % 0.1 % (0.0-4.0); HEMATOCRIT 26.7 % (35.0-46.0); LYMPH % 12.1 % (9.0-44.0); LYMPHOCYTE # 0.6 TH/MM3 (1.0-4.8); MEAN CELL VOLUME 101.2 FL (80.0-100.0); MEAN CORPUSCULAR HEMOGLOBIN 34.6 PG (27.0-34.0); MEAN CORPUSCULAR HGB CONC 34.2 % (32.0-36.0); MONO % 7.8 % (0.0-8.0); NEUT % 79.9 % (16.0-70.0); PLATELET COUNT 89 TH/MM3 (150-450); RED BLOOD COUNT 2.64 MIL/MM3 (4.00-5.30); RED CELL DISTRIBUTION WIDTH 15.1 % (11.6-17.2); WHITE BLOOD COUNT 4.7 TH/MM3 (4.0-11.0)
[2017-04-30 11:22] LABS: HEMO FLAGS AUTO DIFF
[2017-04-30 11:49] LABS: ALT (GPT) 50 U/L (10-53); ANION GAP 8 MEQ/L (5-15); AST (GOT) 60 U/L (15-37); BLOOD UREA NITROGEN 19 MG/DL (7-18); CHLORIDE 104 MEQ/L (98-107); GLOMERULAR FILTRATION RATE 61 ML/MIN (>89); POTASSIUM 4.2 MEQ/L (3.5-5.1); SODIUM (NA) 136 MEQ/L (136-145)
[2017-04-30 11:51] LABS: ALKALINE PHOSPHATASE 277 U/L (45-117); TOTAL BILIRUBIN ADULT 0.4 MG/DL (0.2-1.0)
[2017-04-30 12:03] LABS: OVALOCYTES 1+ (NORMAL); PLATELET ESTIMATE SMEAR LOW (NORMAL); SCAN/DIFF AUTO DIFF CONFIRMED
[2017-04-30 12:04] LABS: PLATELET MORPHOLOGY ENLARGED (NORMAL)
[2017-04-30] MEDS ORDERED: NIFEdipine 30 MG SUSTAINED RELEASE TAB PO ONE (13:00)
[2017-04-30] MEDS ORDERED: FUROSEMIDE 40 MG TAB PO ONE (13:00)
[2017-04-30] MEDS ORDERED: SPIRONOLACTONE 25 MG TAB PO ONE (13:00)
--- NOTE | 2017-04-30 14:11 | HHI.PR ---
Review/Management Diagnosis 1. Right third cranial nerve palsy. 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 2.Temporal arteritis currently on 5 mg prednisone. 3. Raised values of sed rate and C-reactive protein. 4. Diabetes mellitus. 5. Autoimmune hepatitis and cirrhosis. 6. Hypertension. Plan 1. Neuro checks q. 4 hours. 2. Prednisone 10 mg daily. 3. No indication for intravenous steroids. 4. Stable neurologic exam and neurologic imaging are unremarkable for an acute intracranial abnormality 5. Tight control of blood sugar and blood pressure. 6. OT recommendations are appreciated. 7. Fall precautions. 8. Follow up as outpatient with neurology 9. Please call for questions Diagnosis/Plan: Subjective Subjective Comments No acute events reported Patient denies headache Double vision, and right ptosis with no new changes in vision CTA neck is unremarkable for an aneurysm or a lesion Elevated sed rate and CRP Active Medications Current Medications Medications (Trade) Dose Ordered Sig/Miranda Route Start Time Stop Time Status Last Admin (NS Flush) 2 ml UNSCH PRN IV FLUSH 04/29/17 13:00 (NS Flush) 2 ml BID IV FLUSH 04/29/17 21:00 04/30/17 08:06 (Heparin Inj) 5,000 units Q12H SQ 04/29/17 14:00 04/30/17 13:52 (Narcan Inj) 0.4 mg UNSCH PRN IV PUSH 04/29/17 13:00 (Milk Of Magnesia Liq) 30 ml Q12H PRN PO 04/29/17 13:00 (Senokot) 17.2 mg Q12H PRN PO 04/29/17 13:00 (Dulcolax Supp) 10 mg DAILY PRN RECTAL 04/29/17 13:00 (Lactulose Liq) 30 ml DAILY PRN PO 04/29/17 13:00 (Vitamin D3) 1,000 units DAILY PO 04/30/17 09:00 04/30/17 08:05 (Catapres) 0.1 mg TID PO 04/29/17 18:00 04/30/17 12:43 (Levemir Inj) 30 units DAILY SQ 04/30/17 09:00 04/30/17 08:07 (Synthroid) 75 mcg DAILY@0600 PO 04/29/17 16:00 04/30/17 05:33 (Purinethol) 50 mg DAILY PO 04/30/17 09:00 04/30/17 09:58 (Lopressor) 25 mg Q12HR PO 04/29/17 21:00 04/30/17 08:05 (Protonix) 40 mg DAILY PO 04/30/17 09:00 04/30/17 08:05 (Zoloft) 50 mg DAILY PO 04/30/17 09:00 04/30/17 08:05 (Lactulose Liq) 30 ml BID PO 04/29/17 14:00 04/30/17 08:05 (NovoLOG SUPPLEMENTAL SCALE) 1 ACHS SLIDING SCALE SQ 04/29/17 17:00 04/30/17 12:43 (Benadryl Inj) 25 mg Q4H PRN IV PUSH 04/29/17 13:30 (Zofran Inj) 4 mg Q6HR PRN IV PUSH 04/29/17 16:00 04/29/17 16:42 (D50w (Vial) Inj) 50 ml UNSCH PRN IV PUSH 04/29/17 17:15 (Glucagon Inj) 1 mg UNSCH PRN OTHER 04/29/17 17:15 (Cozaar) 100 mg DAILY PO 04/30/17 10:00 04/30/17 09:58 (Procardia Xl) 30 mg DAILY PO 04/30/17 10:00 04/30/17 09:58 (Aldactazide 25-25 Mg) 1 tab DAILY PO 05/01/17 09:00 Allergies Allergies Coded Allergies doxycycline (Unverified Allergy, Severe, Rash, 04/10/17) minocycline (Unverified Allergy, Severe, Rash, 04/10/17) morphine (Unverified Allergy, Severe, Rash, 04/10/17) penicillin G (Unverified Allergy, Severe, Rash, 04/10/17) tigecycline (Unverified Allergy, Severe, Rash, 04/10/17) Sulfa (Sulfonamide Antibiotics) (Unverified Allergy, Unknown, Rash, 04/10/17) clindamycin (Unverified Allergy, Unknown, Nausea/Vomiting, 04/10/17) Review of Systems All other ROS: ROS reviewed as documented in chart Exam I&O / VS Vital Signs Date Time Temp Pulse Resp B/P (MAP) Pulse Ox O2 Delivery O2 Flow Rate FiO2 04/30/17 13:51 174/81 (112) 04/30/17 12:00 97.6 56 20 218/102 (140) 94 04/30/17 08:24 55 04/30/17 07:00 98.2 56 20 207/91 (129) 96 04/30/17 04:00 98.4 55 31 206/95 (132) 95 04/30/17 00:31 98.1 58 20 195/90 (125) 93 04/30/17 00:11 75 04/29/17 21:26 185/84 (117) 04/29/17 19:46 98.6 64 20 162/77 (105) 94 04/29/17 17:46 70 194/91 (125) 04/29/17 16:52 98.5 113 20 223/122 (155) 96 04/29/17 15:46 04/29/17 15:33 92 18 210/106 (140) 96 Room Air General: Alert and Oriented, No acute distress Eye: Vision unchanged Respiratory: Lungs CTA, Non-labored respirations Cardiology: Normal rate, No murmur Neurologic: Alert, Oriented, Other (unchanged neurologic ) Psychiatric: Cooperative, Appropriate mood & affect Objective Radiology Results Last 72 hours Impressions Abdomen X-Ray 04/29/17 1551 Signed Impressions: Service Date/Time: Saturday, April 29, 2017 21:02 - CONCLUSION: 1. Nonspecific bowel gas pattern without obstruction. 2. Mild degenerative changes and scoliosis of the lumbar spine. Lex Higuera MD Neck CTA 04/29/17 0000 Signed Impressions: Service Date/Time: Saturday, April 29, 2017 20:38 - CONCLUSION: No acute disease. Lex Higuera MD Head Magnetic Resonance Angiography 04/29/17 0000 Signed Impressions: Service Date/Time: Saturday, April 29, 2017 13:08 - CONCLUSION: Negative for major branch vessel occlusion. Marco Chaudhari MD FACR Brain MRI 04/29/17 0000 Signed Impressions: Service Date/Time: Saturday, April 29, 2017 13:08 - CONCLUSION: 1. No acute intracranial abnormality is identified. 2. Chronic and age-appropriate related changes include generalized cerebral atrophy and mild periventricular and subcortical white matter signal changes characteristic of chronic microvascular ischemia. Yayo Renee MD Micro and Labs Laboratory Tests Test 04/30/17 10:57 White Blood Count 4.7 Red Blood Count 2.64 Hemoglobin 9.1 Hematocrit 26.7 Mean Corpuscular Volume 101.2 Mean Corpuscular Hemoglobin 34.6 Mean Corpuscular Hemoglobin Concent 34.2 Red Cell Distribution Width 15.1 Platelet Count 89 Mean Platelet Volume 9.3 Neutrophils (%) (Auto) 79.9 Lymphocytes (%) (Auto) 12.1 Monocytes (%) (Auto) 7.8 Eosinophils (%) (Auto) 0.1 Basophils (%) (Auto) 0.1 Neutrophils # (Auto) 3.7 Lymphocytes # (Auto) 0.6 Monocytes # (Auto) 0.4 Eosinophils # (Auto) 0.0 Basophils # (Auto) 0.0 CBC Comment AUTO DIFF Differential Comment AUTO DIFF CONFIRMED Platelet Estimate LOW Platelet Morphology Comment ENLARGED Ovalocytes 1+ Blood Urea Nitrogen 19 Creatinine 0.92 Random Glucose 262 Total Protein 7.0 Albumin 2.4 Calcium Level 8.3 Alkaline Phosphatase 277 Aspartate Amino Transf (AST/SGOT) 60 Alanine Aminotransferase (ALT/SGPT) 50 Total Bilirubin 0.4 Sodium Level 136 Potassium Level 4.2 Chloride Level 104 Carbon Dioxide Level 24.0 Anion Gap 8 Estimat Glomerular Filtration Rate 61 Kary Capps MD Apr 30, 2017 14:11
[2017-04-30] MEDS: predniSONE 10 MG TAB PO SCH (15:20)
--- NOTE | 2017-04-30 19:14 | HHI.PR ---
Subjective Remarks Patient seen this morning around 11 AM. Says she is feeling all right. Headache has resolved. Still with right third nerve palsy. denies any chest pain or shortness of breath. Denies any nausea or vomiting. Objective Vital Signs Date Time Temp Pulse Resp B/P (MAP) Pulse Ox O2 Delivery O2 Flow Rate FiO2 04/30/17 16:00 97.6 56 20 144/67 (92) 94 04/30/17 13:51 174/81 (112) 04/30/17 12:00 97.6 56 20 218/102 (140) 94 04/30/17 08:24 55 04/30/17 07:00 98.2 56 20 207/91 (129) 96 04/30/17 04:00 98.4 55 31 206/95 (132) 95 04/30/17 00:31 98.1 58 20 195/90 (125) 93 04/30/17 00:11 75 04/29/17 21:26 185/84 (117) 04/29/17 19:46 98.6 64 20 162/77 (105) 94 I/O 04/29/17 04/29/17 04/29/17 04/30/17 04/30/17 04/30/17 06:59 14:59 22:59 06:59 14:59 22:59 Intake Total 100 ml Balance 100 ml Intake IV Total 100 ml Result Diagram: 04/30/17 1057 04/30/17 1057 Imaging Last Impressions Abdomen X-Ray 04/29/17 1551 Signed Impressions: Service Date/Time: Saturday, April 29, 2017 21:02 - CONCLUSION: 1. Nonspecific bowel gas pattern without obstruction. 2. Mild degenerative changes and scoliosis of the lumbar spine. Lex Higuera MD Neck CTA 04/29/17 0000 Signed Impressions: Service Date/Time: Saturday, April 29, 2017 20:38 - CONCLUSION: No acute disease. Lex Higuera MD Head Magnetic Resonance Angiography 04/29/17 0000 Signed Impressions: Service Date/Time: Saturday, April 29, 2017 13:08 - CONCLUSION: Negative for major branch vessel occlusion. Marco Chaudhari MD FACR Brain MRI 04/29/17 0000 Signed Impressions: Service Date/Time: Saturday, April 29, 2017 13:08 - CONCLUSION: 1. No acute intracranial abnormality is identified. 2. Chronic and age-appropriate related changes include generalized cerebral atrophy and mild periventricular and subcortical white matter signal changes characteristic of chronic microvascular ischemia. Yayo Renee MD Objective Remarks GENERAL: patient sitting up in bed. Appears comfortable. Alert, oriented 3. SKIN: Warm and dry. HEAD: Normocephalic. EYES: No scleral icterus. No injection or drainage. NECK: Supple, trachea midline. No JVD or lymphadenopathy. CARDIOVASCULAR: Regular rate and rhythm without murmurs, gallops, or rubs. RESPIRATORY: Breath sounds equal bilaterally. No accessory muscle use. GASTROINTESTINAL: Abdomen soft, non-tender, nondistended. MUSCULOSKELETAL: No cyanosis, or edema. BACK: Nontender without obvious deformity. No CVA tenderness. A/P Assessment and Plan 66-year-old female with history of autoimmune hepatitis, cirrhosis, diabetes mellitus, anxiety, depression, hypertension, presents with a 2-3 day history of headache, right eye ptosis, and blurred vision. //Cranial Nerve III Palsy: with suspected flare of Temporal Arteritis. -start on high dose steroids with IV Solumedrol 500mg bid -monitor neuro checks -check brain MRI/MRA -check ESR/CRP -pain control with oxycodone prn 04/30-improved headache. Continue prednisone 10 mg daily. Continue neuro checks every 4 hours. Appreciate nephrology assistance program //Diabetes Mellitus: patient has long history of very labile blood sugars. HgbA1c 8.7 on 04/11/17. -continue patient's home Levemir 30u sq daily -Monitor Accu-checks, cover with medium dose SSI -04/30-Blood sugars elevated in the 200s. Likely to improve off of high-dose steroids. Continue to monitor. 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 Etienne -bowel regimen while on pain medications -Start spironolactone and HCTZ //Hypertension: chronic, stable -continue home meds including clonidine, metoprolol; hold her losartan for now -04/30-blood pressure elevated to 200 systolic. Likely exacerbated by high- dose steroids last night. Lasix, nifedipine given. Blood pressure medications adjusted. Continue to monitor. //Anxiety/Depression: chronic, stable -continue home medications including Zoloft //Hypothyroidism: chronic, stable -continue patient's levothyroxine //DVT Prophylaxis: heparin sq Discharge Planning likely discharge tomorrow if stable, if cleared by neurology Ayden Mittal MD Apr 30, 2017 19:14
[2017-05-01] MEDS: HEPARIN SODIUM - SQ 10,000 UNITS/ML VIAL SQ SCH (02:03)
[2017-05-01 04:00] VITALS: BP 120/59; PULSE 59; RESP 18; TEMP 97.8; O2SAT 95
[2017-05-01] MEDS: LEVOTHYROXINE SODIUM 75 MCG TAB PO SCH (05:37)
[2017-05-01 07:15] LABS: AUTOMATED NEUTROPHIL # 3.6 TH/MM3 (1.8-7.7); BASOPHIL % 0.3 % (0.0-2.0); EOSINOPHIL # 0.1 TH/MM3 (0-0.4); HEMATOCRIT 25.8 % (35.0-46.0); LYMPH % 22.6 % (9.0-44.0); LYMPHOCYTE # 1.2 TH/MM3 (1.0-4.8); MEAN CELL VOLUME 100.9 FL (80.0-100.0); MEAN CORPUSCULAR HEMOGLOBIN 34.7 PG (27.0-34.0); MEAN CORPUSCULAR HGB CONC 34.4 % (32.0-36.0); MONO % 7.5 % (0.0-8.0); NEUT % 68.6 % (16.0-70.0); PLATELET COUNT 96 TH/MM3 (150-450); RED BLOOD COUNT 2.55 MIL/MM3 (4.00-5.30); RED CELL DISTRIBUTION WIDTH 15.1 % (11.6-17.2); WHITE BLOOD COUNT 5.3 TH/MM3 (4.0-11.0)
[2017-05-01 07:17] LABS: HEMO FLAGS AUTO DIFF
[2017-05-01 07:26] LABS: BICARBONATE 26.4 MEQ/L (21.0-32.0); MAGNESIUM 1.9 MG/DL (1.5-2.5); POTASSIUM 3.7 MEQ/L (3.5-5.1)
[2017-05-01] MEDS ORDERED: DEXTROSE 50% IN WATER 50 ML SYRINGE ONE (07:49)
[2017-05-01 08:00] VITALS: BP 159/70; PULSE 60; RESP 16; TEMP 98; O2SAT 96
[2017-05-01] MEDS: INSULIN ASPART SUPPLEMENTAL SCALE SQ SCH ×2 (08:00→12:00)
[2017-05-01 08:45] LABS: OVALOCYTES 1+ (NORMAL); PLATELET ESTIMATE SMEAR LOW (NORMAL); PLATELET MORPHOLOGY NORMAL (NORMAL); SCAN/DIFF AUTO DIFF CONFIRMED
[2017-05-01] MEDS: LACTULOSE SYRUP 20 GM/30 ML CUP PO SCH (08:53)
[2017-05-01] MEDS: INSULIN DETEMIR 100 UNITS/ML VIAL SQ SCH (08:54)
[2017-05-01] MEDS: LOSARTAN 50 MG TAB PO SCH (08:54)
[2017-05-01] MEDS: METOPROLOL TARTRATE 25 MG TAB PO SCH (08:54)
[2017-05-01] MEDS: SERTRALINE HCL 50 MG TAB PO SCH (08:54)
[2017-05-01] MEDS: NIFEdipine 30 MG SUSTAINED RELEASE TAB PO SCH (08:54)
[2017-05-01] MEDS: CHOLECALCIFEROL (VIT D3) 1000 UNIT TAB PO SCH (08:54)
[2017-05-01] MEDS: predniSONE 10 MG TAB PO SCH (08:54)
[2017-05-01] MEDS: PANTOPRAZOLE SOD 40 MG DELAYED RELEASE TAB PO SCH (08:54)
[2017-05-01] MEDS: cloNIDine HCL 0.1 MG TAB PO SCH (08:54)
[2017-05-01] MEDS: SODIUM CHLORIDE 0.9% FLUSH 10 ML FLUSH IV FLUSH SCH (08:55)
[2017-05-01] MEDS ORDERED: SPIRONOLACTONE/HCTZ 25 MG/25 MG TAB PO SCH (09:00)
[2017-05-01] MEDS: MERCAPTOPURINE 50 MG TAB PO SCH (09:02)
[2017-05-01 12:00] VITALS: BP 158/74; PULSE 59; RESP 16; TEMP 97.5; O2SAT 96
[2017-05-01 12:01] VITALS: BP 114/63
--- NOTE | 2017-05-01 12:54 | HHI.FF ---
Face to Face Verification Diagnosis: (1) Cirrhosis of liver with ascites (2) Diabetes mellitus with neurological manifestations, uncontrolled Occupational Therapy Order: Evaluate and Treat Instructions: Recent left hand splinting. Removed splint 04/29 Home Health Nursing Order: Diabetic education Nursing assessment with vital signs Instructions: Home health nurse for medication management Production Consultant Order: To Provide: Long range planning I have seen patient Shaista Mooney on 05/01/17. My clinical findings support the need for the requested home health care services because: Deconditioned w/ increased weakness I certify that my clinical findings support that this patient is homebound because: Unsafe to leave home unassisted Ayden Mittal MD May 01, 2017 12:54 pm
[2017-05-01] MEDS ORDERED: SPIR25TA PO (12:58)
[2017-05-01] MEDS ORDERED: CLON0.1T PO (12:58)
[2017-05-01] MEDS ORDERED: AMLO2.5T PO (12:58)
[2017-05-01] MEDS ORDERED: HYDR12.57 PO (12:58)
[2017-05-01] MEDS ORDERED: LOSA25TA PO (12:58)
[2017-05-01] MEDS ORDERED: PRED10 PO (12:58)
--- NOTE | 2017-05-01 13:04 | HHI.PR ---
Subjective Remarks pt seen this morning around 10 AM. Says she is feeling well. Denies any chest pain or shortness breath. Denies any headache. She continues with her right eye closed, however when she manually opens her right eye she continues to have double vision. Objective Vital Signs Date Time Temp Pulse Resp B/P (MAP) Pulse Ox O2 Delivery O2 Flow Rate FiO2 05/01/17 08:00 98.0 60 16 159/70 (99) 96 05/01/17 04:00 97.8 59 18 120/59 (79) 95 05/01/17 04:00 97.8 59 18 120/59 (79) 95 04/30/17 21:28 97.8 55 18 159/70 (99) 95 04/30/17 16:00 97.6 56 20 144/67 (92) 94 04/30/17 13:51 174/81 (112) I/O 04/30/17 04/30/17 04/30/17 05/01/17 05/01/17 05/01/17 07:00 15:00 23:00 07:00 15:00 23:00 # Voids 8 # Bowel Movements 6 Result Diagram: 05/01/17 0534 05/01/17 0859 Objective Remarks GENERAL: patient sitting up in bed. Appears comfortable. Alert, oriented 3. No acute change on exam. SKIN: Warm and dry. HEAD: Normocephalic. EYES: No scleral icterus. No injection or drainage. NECK: Supple, trachea midline. No JVD. CARDIOVASCULAR: Regular rate and rhythm without murmurs, gallops, or rubs. RESPIRATORY: Breath sounds equal bilaterally. No accessory muscle use. GASTROINTESTINAL: Abdomen soft, non-tender, nondistended. MUSCULOSKELETAL: No cyanosis, or edema. BACK: Nontender without obvious deformity. No CVA tenderness. A/P Assessment and Plan 66-year-old female with history of autoimmune hepatitis, cirrhosis, diabetes mellitus, anxiety, depression, hypertension, presents with a 2-3 day history of headache, right eye ptosis, and blurred vision. //Cranial Nerve III Palsy: with suspected flare of Temporal Arteritis. -start on high dose steroids with IV Solumedrol 500mg bid -monitor neuro checks -check brain MRI/MRA -check ESR/CRP -pain control with oxycodone prn 04/30-improved headache. Continue prednisone 10 mg daily. Continue neuro checks every 4 hours. Appreciate nephrology assistance program = Patient cleared by neurology for discharge. Continue on prednisone 10 mg daily. //Diabetes Mellitus: patient has long history of very labile blood sugars. HgbA1c 8.7 on 04/11/17. -continue patient's home Levemir 30u sq daily -Monitor Accu-checks, cover with medium dose SSI -04/30-Blood sugars elevated in the 200s. Likely to improve off of high-dose steroids. Continue to monitor. 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 Etienne -bowel regimen while on pain medications -Start spironolactone and HCTZ //Hypertension: chronic, stable -continue home meds including clonidine, metoprolol; hold her losartan for now -04/30-blood pressure elevated to 200 systolic. Likely exacerbated by high- dose steroids last night. Lasix, nifedipine given. Blood pressure medications adjusted. Continue to monitor. = 05/01. Discharge patient on new prescriptions for amlodipine, hydrochlorothiazide, losartan, spironolactone which will help with ascites and anasarca secondary to liver disease. Close follow-up with primary care. //Anxiety/Depression: chronic, stable -continue home medications including Zoloft //Hypothyroidism: chronic, stable -continue patient's levothyroxine //DVT Prophylaxis: heparin sq Discharge Planning Discharge today. Follow-up with neurology and primary care. Ayden Mittal MD May 01, 2017 13:04
--- NOTE | 2017-05-01 13:08 | HHI.DS ---
Discharge Summary Admission Date Apr 29, 2017 at 12:37 Discharge Date: May 01, 2017 Admitting Diagnosis cranial nerve palsy (1) Cranial nerve III palsy ICD Code: H49.00 - Third [oculomotor] nerve palsy, unspecified eye (2) Temporal arteritis ICD Code: M31.6 - Other giant cell arteritis Status: Acute (3) Type 2 diabetes mellitus ICD Code: E11.9 - Type 2 diabetes mellitus without complications Status: Chronic Procedures No invasive procedures performed. Brief History - From Admission Written by Lela Raymond, acting as scribe for Dr. Mittal on 04/29/17 at 12: 45. 66-year-old female with history of autoimmune hepatitis, cirrhosis, diabetes mellitus, anxiety, depression, hypertension, presents with a 2-3 day history of headache, right eye ptosis, and blurred vision. The patient reports 2-3 days ago she started to notice that she was unable to open her right eye. When she opens the eye with the assistance of her hands, she reports blurred vision from the eye. She also has constant throbbing right frontotemporal pain. She reports history of temporal arteritis so she thought maybe this is what was causing her symptoms and decided to double her prednisone dosing to 10mg which did not relieve her symptoms. She denies any dizziness or lightheadedness, but does report some gait instability and she tends to lean to the left side when ambulating. She also complains of abdominal distention and constipation. Her last BM was yesterday however she still feels constipated. She had an episode of nausea/vomiting a few nights ago, but none recent. She denies any chest pain however did have an episode of heart palpitations last night that went away on its own. Denies any fevers/chills or shortness of breath. She denies any other medical complaints at this time. Her neurologist is Dr. Capps. CBC/BMP: 05/01/17 0534 05/01/17 0859 Significant Findings Laboratory Tests Test 04/29/17 11:40 04/30/17 10:57 05/01/17 05:34 05/01/17 08:59 White Blood Count 3.5 TH/MM3 (4.0-11.0) Red Blood Count 2.84 MIL/MM3 (4.00-5.30) 2.64 MIL/MM3 (4.00-5.30) 2.55 MIL/MM3 (4.00-5.30) Hemoglobin 9.7 GM/DL (11.6-15.3) 9.1 GM/DL (11.6-15.3) 8.9 GM/DL (11.6-15.3) Hematocrit 28.9 % (35.0-46.0) 26.7 % (35.0-46.0) 25.8 % (35.0-46.0) Mean Corpuscular Volume 102.0 FL (80.0-100.0) 101.2 FL (80.0-100.0) 100.9 FL (80.0-100.0) Mean Corpuscular Hemoglobin 34.1 PG (27.0-34.0) 34.6 PG (27.0-34.0) 34.7 PG (27.0-34.0) Platelet Count 122 TH/MM3 (150-450) 89 TH/MM3 (150-450) 96 TH/MM3 (150-450) Monocytes (%) (Auto) 11.2 % (0.0-8.0) Lymphocytes # (Auto) 0.8 TH/MM3 (1.0-4.8) 0.6 TH/MM3 (1.0-4.8) Erythrocyte Sedimentation Rate 39 mm/hr (0-30) Activated Partial Thromboplast Time 20.5 SEC (24.3-30.1) Random Glucose 212 MG/DL (74-106) 262 MG/DL (74-106) 65 MG/DL (74-106) 186 MG/DL (74-106) Albumin 2.7 GM/DL (3.4-5.0) 2.4 GM/DL (3.4-5.0) 2.4 GM/DL (3.4-5.0) Alkaline Phosphatase 291 U/L (45-117) 277 U/L (45-117) Aspartate Amino Transf (AST/SGOT) 59 U/L (15-37) 60 U/L (15-37) Chloride Level 109 MEQ/L (98-107) Estimat Glomerular Filtration Rate 58 ML/MIN (>89) 61 ML/MIN (>89) 48 ML/MIN (>89) Hemoglobin A1c 7.9 % (4.3-6.0) C-Reactive Protein 0.54 MG/DL (0.00-0.30) Neutrophils (%) (Auto) 79.9 % (16.0-70.0) Platelet Estimate LOW (NORMAL) LOW (NORMAL) Platelet Morphology Comment ENLARGED (NORMAL) Ovalocytes 1+ (NORMAL) 1+ (NORMAL) Blood Urea Nitrogen 19 MG/DL (7-18) 29 MG/DL (7-18) Calcium Level 8.3 MG/DL (8.5-10.1) Creatinine 1.13 MG/DL (0.50-1.00) Imaging Last Impressions Abdomen X-Ray 04/29/17 1551 Signed Impressions: Service Date/Time: Saturday, April 29, 2017 21:02 - CONCLUSION: 1. Nonspecific bowel gas pattern without obstruction. 2. Mild degenerative changes and scoliosis of the lumbar spine. Lex Higuera MD Neck CTA 04/29/17 0000 Signed Impressions: Service Date/Time: Saturday, April 29, 2017 20:38 - CONCLUSION: No acute disease. Lex Higuera MD Head Magnetic Resonance Angiography 04/29/17 0000 Signed Impressions: Service Date/Time: Saturday, April 29, 2017 13:08 - CONCLUSION: Negative for major branch vessel occlusion. Marco Chaudhari MD FACR Brain MRI 04/29/17 0000 Signed Impressions: Service Date/Time: Saturday, April 29, 2017 13:08 - CONCLUSION: 1. No acute intracranial abnormality is identified. 2. Chronic and age-appropriate related changes include generalized cerebral atrophy and mild periventricular and subcortical white matter signal changes characteristic of chronic microvascular ischemia. Yayo Renee MD Hospital Course Patient had imaging performed as above which was negative for acute finding. Patient was initially given high-dose IV steroids, however subsequently started on 10 mg of prednisone as per neurology. Neurology was consulted. Patient's headache improved on hospital day one, and neurology cleared for discharge with follow-up as outpatient. Patient was also found to have elevated blood sugars secondary to IV steroids which improved with decreasing steroids. Patient was also found to have high blood pressure in the 200s. Medications were adjusted with improvement. Would recommend weaning off clonidine as outpatient For problem-based summary for most recent progress note, please see below. 66-year-old female with history of autoimmune hepatitis, cirrhosis, diabetes mellitus, anxiety, depression, hypertension, presents with a 2-3 day history of headache, right eye ptosis, and blurred vision. //Cranial Nerve III Palsy: with suspected flare of Temporal Arteritis. -start on high dose steroids with IV Solumedrol 500mg bid -monitor neuro checks -check brain MRI/MRA -check ESR/CRP -pain control with oxycodone prn 04/30-improved headache. Continue prednisone 10 mg daily. Continue neuro checks every 4 hours. Appreciate nephrology assistance program = Patient cleared by neurology for discharge. Continue on prednisone 10 mg daily. //Diabetes Mellitus: patient has long history of very labile blood sugars. HgbA1c 8.7 on 04/11/17. -continue patient's home Levemir 30u sq daily -Monitor Accu-checks, cover with medium dose SSI -04/30-Blood sugars elevated in the 200s. Likely to improve off of high-dose steroids. Continue to monitor. 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 Likely exacerbated by high- dose steroids last night. Lasix, nifedipine given. Blood pressure medications adjusted. Continue to monitor. = 05/01. Discharge patient on new prescriptions for amlodipine, hydrochlorothiazide, losartan, spironolactone which will help with ascites and anasarca secondary to liver disease. Orthostatic blood pressures pending. Close follow-up with primary care. //Anxiety/Depression: chronic, stable -continue home medications including Zoloft //Hypothyroidism: chronic, stable -continue patient's levothyroxine //DVT Prophylaxis: heparin sq Pt Condition on Discharge: Good Discharge Disposition: Disch w/ Home Health Serv Discharge Time: > 30 minutes Discharge Instructions DIET: Follow Instructions for: Diabetic Diet Activities you can perform: Regular-No Restrictions, See Additionl Instruction Activities to Avoid: Driving Other Activity Instructions: no driving until cleared by neurology. Follow up Referrals: Neurology with Kary Capps MD PCP Follow-up - 1 Week with Luis Clark Do New Orders: COMP MET PROF (CMP) - 2-3 Days New Medications: Amlodipine (Amlodipine) 2.5 Mg Tab 2.5 MG PO DAILY for Blood Pressure Management, #30 TAB 0 Refills Hydrochlorothiazide (Hydrochlorothiazide) 12.5 Mg Cap 12.5 MG PO DAILY for blood pressure, #30 CAP 0 Refills Losartan (Losartan) 25 Mg Tab 25 MG PO DAILY for Blood Pressure Management, #30 TAB 0 Refills Spironolactone (Spironolactone) 25 Mg Tab 25 MG PO DAILY for ascites, #30 TAB 0 Refills Prednisone (Prednisone) 10 Mg Tab 10 MG PO DAILY for inflammation for 30 Days, #30 TAB Changed Medications: Clonidine (Clonidine) 0.1 Mg Tab 0.1 MG PO BID for Blood Pressure Management, #60 TAB 0 Refills (Changed from: TID) Continued Medications: Ascorbic Acid (C-500) 500 Mg Tab.chew 500 MG PO DAILY for Nutritional Supplement Cholecalciferol (Vitamin D3) 1,000 Unit Tab 1000 UNITS PO DAILY for Nutritional Supplement, #1 BOTTLE 0 Refills Cholestyramine (Cholestyramine) 4 Gm/Dose Powd 4 GM PO BID for Dyslipidemia, #1 CAN 0 Refills 1 level scoopful of powder contains 4 grams of cholestyramine. Insulin Aspart Inj (Novolog Inj) 1,000 Unit/10 Ml Vial 0 SQ DIRECTED for Blood Sugar Management, #10 ML 0 Refills Sliding Scale as directed. Insulin Detemir Inj (Levemir Inj) 1,000 unit/ 10 ML Vial 30 UNITS SQ DAILY for Blood Sugar Management for 30 Days, #1 VIAL Do not mix with any other Insulin. Lactulose (Encephalopathy) Liq (Enulose Liq) 10 Gm/15 Ml Soln 20 GM PO BID Levothyroxine (Levothyroxine) 75 Mcg Tab 75 MCG PO DAILY for Thyroid, #30 TAB 0 Refills Mercaptopurine (Mercaptopurine) 50 Mg Tab 50 MG PO DAILY for Chemotherapy Management, TAB 0 Refills Metoprolol Tartrate (Metoprolol Tartrate) 25 Mg Tab 25 MG PO Q12HR for Blood Pressure Management, #60 TAB Pantoprazole (Pantoprazole) 40 Mg Tab 40 MG PO DAILY for gastric protection, #30 TAB Sertraline (Zoloft) 50 Mg Tab 50 MG PO DAILY, #90 TAB 1 Refill Discontinued Medications: Losartan (Losartan) 100 Mg Tab 100 MG PO DAILY for Blood Pressure Management, #30 TAB 0 Refills Prednisone (Prednisone) 5 Mg Tab 5 MG PO DAILY, TAB 0 Refills Ayden Mittal MD May 01, 2017 13:08
[2017-05-01] MEDS ORDERED: cloNIDine HCL 0.1 MG TAB PO SCH (21:00)
== END 2017-05-01 16:12 | disposition home health service (06) | DRG 546 ==
LOC: NEPE 10:47 → NEDA 12:37 → N05B 15:49 → UNDODISIN 23:21
PROVIDERS: ADMIT Internal Medicine; ATTEND Internal Medicine
DX: M31.6 Other giant cell arteritis (principal); R18.8 Other ascites; E11.41 Type 2 diabetes mellitus with diabetic mononeuropathy; H49.01 Third [oculomotor] nerve palsy, right eye; E11.65 Type 2 diabetes mellitus with hyperglycemia; K74.60 Unspecified cirrhosis of liver; K75.4 Autoimmune hepatitis; I10 Essential (primary) hypertension; K59.00 Constipation, unspecified; F32.9 Major depressive disorder, single episode, unspecified; F41.9 Anxiety disorder, unspecified; R70.0 Elevated erythrocyte sedimentation rate; E03.9 Hypothyroidism, unspecified; I45.10 Unspecified right bundle-branch block; Z79.4 Long term (current) use of insulin; T38.0X5A Adverse effect of glucocorticoids and synthetic analogues, initial encounter
CPT/HCPCS: 70498; 70544; 70553; 74000; 80053; 80069; 82947; 82948; 83036; 83735; 85025; 85610; 85652; 85730; 86140; 93005; 99285; A9579; J1644; J1815; J2405; J2930; J7512; Q9967

== ENCOUNTER 2017-07-09 04:21 | Emergency (ER) | payer MEDICARE, OTHER ==
[~2017-07-09] VITALS: Ht 157.5 cm; Wt 55.0 kg
[~2017-07-09 04:21] MED LIST changes: +AMLO2.5T PO; +HYDR12.57 PO; -LOSA100T PO; +LOSA25TA PO; +PRED10 PO; -PRED5TAB PO; +SPIR25TA PO
[2017-07-09 04:24] VITALS: BP 152/72; PULSE 88; RESP 18; TEMP 98.1; O2SAT 99
[2017-07-09 04:27] VITALS: O2SAT 100
[2017-07-09] MEDS ORDERED: DEXT 5%-NACL 0.45% 1000 ML INJ 1,000 ML IV SCH (04:30)
--- NOTE | 2017-07-09 04:34 | PD ---
HPI Chief Complaint: Diabetic Time Seen by Provider: 04:24 Travel History International Travel<30 days: No Contact w/Intl Traveler<30days: No Traveled to known affect area: No History of Present Illness HPI 66-year-old female complains of low blood sugar. Patient has history of diabetes and on Levemir and NovoLog daily. Patient's daughter found patient with altered mental status tonight. EMS was called. Blood sugar at the scene was 27. GCS of the scene was 5. Patient was given D10 IV. Patient was transported to ED for evaluation. GCS was 15 on arrival. Patient states that she had nausea vomiting after dinner and did not eat well for the past few days. Patient on Levemir 15 mg twice a day. Last dose of Levemir was yesterday evening. Patient denies any headache. Patient denies any chest pain or shortness of breath. Patient denies abdominal pain. Patient denies any focal weakness or numbness of extremity. Patient was given Zofran 4 mg IV by EMS. PFSH Past Medical History Hx Anticoagulant Therapy: Yes (ASPIRIN 81mg) Arthritis: Yes Asthma: No Autoimmune Disease: Yes (HEPATITIS) Blood Disorders: No Anxiety: Yes Depression: Yes Heart Rhythm Problems: Yes (RBBB) Cancer: No Cardiovascular Problems: Yes (HTN) High Cholesterol: No Chemotherapy: No Chest Pain: No Congestive Heart Failure: No Cirrhosis: Yes COPD: No Cerebrovascular Accident: No Diabetes: Yes Diminished Hearing: No Endocrine: Yes Gastrointestinal Disorders: Yes (liver cirrhosis) GERD: No Genitourinary: No Headaches: Yes Hepatitis: Yes (AUTOIMMUNE) Hypertension: Yes Immune Disorder: Yes (autoimmune hepatitis) Implanted Vascular Access Dvce: No Musculoskeletal: No Neurologic: Yes (temporal arthritis) Psychiatric: Yes Reproductive: No Respiratory: No Immunizations Current: Yes Radiation Therapy: No Seizures: No Sleep Apnea: No Thyroid Disease: Yes Ovarian Cysts: Yes (1985) Past Surgical History Abdominal Surgery: Yes (APPENDECTOMY) Appendectomy: Yes Gynecologic Surgery: Yes (HYSTERECTOMY ) Hysterectomy: Yes Pacemaker: No Other Surgery: Yes (LIVER/BREAST BIOPSY) Social History Alcohol Use: Yes (PT DENIES) Tobacco Use: No Substance Use: No (PT DENIES) Allergies-Medications (Allergen,Severity, Reaction): Coded Allergies: doxycycline (Unverified Allergy, Severe, Rash, 07/09/17) minocycline (Unverified Allergy, Severe, Rash, 07/09/17) morphine (Unverified Allergy, Severe, Rash, 07/09/17) penicillin G (Unverified Allergy, Severe, Rash, 07/09/17) tigecycline (Unverified Allergy, Severe, Rash, 07/09/17) Sulfa (Sulfonamide Antibiotics) (Unverified Allergy, Unknown, Rash, ) clindamycin (Unverified Allergy, Unknown, Nausea/Vomiting, 07/09/17) Reported Meds & Prescriptions Reported Meds & Active Scripts Active Amlodipine (Amlodipine Besylate) 2.5 Mg Tab 2.5 Mg PO DAILY Hydrochlorothiazide 12.5 Mg Cap 12.5 Mg PO DAILY Spironolactone 25 Mg Tab 25 Mg PO DAILY Prednisone 10 Mg Tab 10 Mg PO DAILY 30 Days Losartan (Losartan Potassium) 25 Mg Tab 25 Mg PO DAILY Clonidine (Clonidine HCl) 0.1 Mg Tab 0.1 Mg PO BID Levemir Inj (Insulin Detemir) 1,000 unit/ 10 ML Vial 30 Units SQ DAILY 30 Days Do not mix with any other Insulin. Pantoprazole (Pantoprazole Sodium) 40 Mg Tab 40 Mg PO DAILY Metoprolol Tartrate 25 Mg Tab 25 Mg PO Q12HR Zoloft (Sertraline HCl) 50 Mg Tab 50 Mg PO DAILY Reported Cholestyramine 4 Gm/Dose Powd 4 Gm PO BID 1 level scoopful of powder contains 4 grams of cholestyramine. Novolog Inj (Insulin Aspart) 1,000 Unit/10 Ml Vial 0 SQ DIRECTED Sliding Scale as directed. C-500 (Ascorbic Acid) 500 Mg Tab.chew 500 Mg PO DAILY Vitamin D3 (Cholecalciferol) 1,000 Unit Tab 1,000 Units PO DAILY Levothyroxine (Levothyroxine Sodium) 75 Mcg Tab 75 Mcg PO DAILY Mercaptopurine 50 Mg Tab 50 Mg PO DAILY Enulose Liq (Lactulose (Encephalopathy) Liq) 10 Gm/15 Ml Soln 20 Gm PO BID Review of Systems General / Constitutional: No: Fever Eyes: No: Visual changes HENT: No: Headaches Cardiovascular: No: Chest Pain or Discomfort Respiratory: No: Shortness of Breath Gastrointestinal: No: Abdominal Pain Genitourinary: No: Dysuria Musculoskeletal: No: Pain Skin: No Rash Neurologic: No: Weakness Psychiatric: No: Depression Endocrine: No: Polydipsia Hematologic/Lymphatic: No: Easy Bruising Physical Exam Narrative GENERAL: Well-nourished, well-developed patient. SKIN: Focused skin assessment warm/dry. HEAD: Normocephalic. EYES: No scleral icterus. No injection or drainage. NECK: Supple, trachea midline. No JVD or lymphadenopathy. CARDIOVASCULAR: Regular rate and rhythm without murmurs, gallops, or rubs. RESPIRATORY: Breath sounds equal bilaterally. No accessory muscle use. GASTROINTESTINAL: Abdomen soft, non-tender, nondistended. MUSCULOSKELETAL: No cyanosis, or edema. BACK: Nontender without obvious deformity. No CVA tenderness. Neurologic exam: Patient's awake and alert oriented 3. No obvious focal neurological deficit. Data Data Last Documented VS Vital Signs Date Time Temp Pulse Resp B/P (MAP) Pulse Ox O2 Delivery O2 Flow Rate FiO2 07/09/17 06:32 88 18 130/67 (88) 97 Room Air 07/09/17 04:24 98.1 Orders Orders Dext 5%-Nacl 0.45% 1000 Ml Inj (D5w-1/2 (07/09/17 04:30) Complete Blood Count With Diff (07/09/17 04:25) Basic Metabolic Panel (Bmp) (07/09/17 04:25) Urinalysis - C+S If Indicated (07/09/17 04:25) Iv Access Insert/Monitor (07/09/17 04:25) Ecg Monitoring (07/09/17 04:25) Oximetry (07/09/17 04:25) Ed Discharge Order (07/09/17 06:38) Labs Laboratory Tests Test 07/09/17 04:30 White Blood Count 5.8 TH/MM3 Red Blood Count 3.41 MIL/MM3 Hemoglobin 11.2 GM/DL Hematocrit 34.3 % Mean Corpuscular Volume 100.6 FL Mean Corpuscular Hemoglobin 33.0 PG Mean Corpuscular Hemoglobin Concent 32.7 % Red Cell Distribution Width 15.7 % Platelet Count 160 TH/MM3 Mean Platelet Volume 9.5 FL Neutrophils (%) (Auto) 86.1 % Lymphocytes (%) (Auto) 6.5 % Monocytes (%) (Auto) 6.8 % Eosinophils (%) (Auto) 0.1 % Basophils (%) (Auto) 0.5 % Neutrophils # (Auto) 5.0 TH/MM3 Lymphocytes # (Auto) 0.4 TH/MM3 Monocytes # (Auto) 0.4 TH/MM3 Eosinophils # (Auto) 0.0 TH/MM3 Basophils # (Auto) 0.0 TH/MM3 CBC Comment DIFF FINAL Differential Comment Blood Urea Nitrogen 48 MG/DL Creatinine 1.40 MG/DL Random Glucose 132 MG/DL Calcium Level 9.8 MG/DL Sodium Level 140 MEQ/L Potassium Level 3.7 MEQ/L Chloride Level 101 MEQ/L Carbon Dioxide Level 23.2 MEQ/L Anion Gap 16 MEQ/L Estimat Glomerular Filtration Rate 38 ML/MIN MDM Medical Decision Making Medical Screen Exam Complete: Yes Emergency Medical Condition: Yes Interpretation(s) 6:39 AM. CBC WBC 5.8. Hemoglobin 11.2 hematocrit 34.3. MCV 100.6. Differential Diagnosis Differential diagnosis including hypoglycemia, electrolyte imbalance. Narrative Course 66-year-old female with history of diabetes on insulin. Patient was found with altered mental status and blood sugar was 27. GCS was 5. EMS was called and gave patient D10W. GCS improved to 15. Accu-Chek in the ED 131. Patient was given D5 1 half normal saline solution 1 25 cc an hour in the ED. Patient was given food. Blood sugar stabilized. Diagnosis Primary Impression: Hypoglycemia due to insulin Patient Instructions: General Instructions Additional Instructions: Decreased Levemir to 10 units twice a day. Accu-Chek sugar 4 times a day daily. Sliding scale as needed. Follow-up with personal physician. Return as needed. Med/Other Pt SpecificInfo: Existing Med Changed Scripts Ondansetron Odt (Zofran Odt) 4 Mg Tab 4 MG SL Q6HR Y for Nausea/Vomiting, #10 TAB 0 Refills Prov: Mckay Marinelli MD 07/09/17 Disposition: 01 DISCHARGE HOME Condition: Stable Mckay Marinelli MD Jul 09, 2017 04:34
[2017-07-09 04:46] LABS: BASOPHIL % 0.5 % (0.0-2.0); EOSINOPHIL % 0.1 % (0.0-4.0); HEMATOCRIT 34.3 % (35.0-46.0); HEMO FLAGS DIFF FINAL; LYMPH % 6.5 % (9.0-44.0); LYMPHOCYTE # 0.4 TH/MM3 (1.0-4.8); MEAN CELL VOLUME 100.6 FL (80.0-100.0); MEAN CORPUSCULAR HGB CONC 32.7 % (32.0-36.0); MONO % 6.8 % (0.0-8.0); NEUT % 86.1 % (16.0-70.0); PLATELET COUNT 160 TH/MM3 (150-450); RED BLOOD COUNT 3.41 MIL/MM3 (4.00-5.30); RED CELL DISTRIBUTION WIDTH 15.7 % (11.6-17.2); WHITE BLOOD COUNT 5.8 TH/MM3 (4.0-11.0)
[2017-07-09 05:12] LABS: BICARBONATE 23.2 MEQ/L (21.0-32.0); POTASSIUM 3.7 MEQ/L (3.5-5.1)
[2017-07-09 06:32] VITALS: BP 130/67; PULSE 88; RESP 18; O2SAT 97
[2017-07-09] MEDS ORDERED: ZOFR4TAB3 SL (06:41)
== END 2017-07-09 06:57 | disposition home or self-care (01) ==
LOC: NEPE 04:21
DX: E11.649 Type 2 diabetes mellitus with hypoglycemia without coma (principal); T38.3X5A Adverse effect of insulin and oral hypoglycemic [antidiabetic] drugs, initial encounter; Z79.4 Long term (current) use of insulin
CPT/HCPCS: 80048; 85025; 99285

== ENCOUNTER 2017-09-18 08:49 | Day surgery (SDC) | payer OTHER, MEDICAID ==
[~2017-09-18 08:49] MED LIST changes: +ZOFR4TAB3 SL
[2017-09-18 09:16] LABS: AUTOMATED NEUTROPHIL # 3.9 TH/MM3 (1.8-7.7); BASOPHIL % 0.4 % (0.0-2.0); EOSINOPHIL # 0.1 TH/MM3 (0-0.4); EOSINOPHIL % 1.2 % (0.0-4.0); HEMATOCRIT 31.6 % (35.0-46.0); HEMOGLOBIN 10.6 GM/DL (11.6-15.3); LYMPH % 15.2 % (9.0-44.0); LYMPHOCYTE # 0.8 TH/MM3 (1.0-4.8); MEAN CELL VOLUME 97.3 FL (80.0-100.0); MEAN CORPUSCULAR HEMOGLOBIN 32.6 PG (27.0-34.0); MEAN CORPUSCULAR HGB CONC 33.5 % (32.0-36.0); MEAN PLATELET VOLUME 9.2 FL (7.0-11.0); MONO % 7.5 % (0.0-8.0); MONOCYTE # 0.4 TH/MM3 (0-0.9); NEUT % 75.7 % (16.0-70.0); PLATELET COUNT 139 TH/MM3 (150-450); RED BLOOD COUNT 3.25 MIL/MM3 (4.00-5.30); RED CELL DISTRIBUTION WIDTH 13.5 % (11.6-17.2); WHITE BLOOD COUNT 5.1 TH/MM3 (4.0-11.0)
[2017-09-18 09:21] LABS: INTERNATIONAL NORMALIZED RATIO 1.1 RATIO; PROTHROMBIN TIME - PATIENT 11.4 SEC (9.8-11.6)
[2017-09-18 09:50] LABS: ALBUMIN 2.7 GM/DL (3.4-5.0); AST (GOT) 61 U/L (15-37); BICARBONATE 28.6 MEQ/L (21.0-32.0); BLOOD UREA NITROGEN 32 MG/DL (7-18); CALCIUM 9.5 MG/DL (8.5-10.1); CHLORIDE 105 MEQ/L (98-107); CREATININE 1.24 MG/DL (0.50-1.00); GLOMERULAR FILTRATION RATE 43 ML/MIN (>89); GLUCOSE,FASTING 97 MG/DL (74-99); SODIUM (NA) 140 MEQ/L (136-145)
[2017-09-18 09:51] LABS: ALT (GPT) 41 U/L (10-53)
[2017-09-18 09:53] LABS: ALKALINE PHOSPHATASE 271 U/L (45-117); TOTAL BILIRUBIN ADULT 0.6 MG/DL (0.2-1.0); TOTAL PROTEIN 8.2 GM/DL (6.4-8.2)
[2017-09-18] MEDS ORDERED: ALBUMIN 25% INJ 0 ML IV ONE (11:30)
[2017-09-18 12:05] VITALS: BP 187/102; PULSE 88; RESP 18; TEMP 97.8; O2SAT 95
[2017-09-18] MEDS ORDERED: LIDOCAINE HCL 1% 20 ML VIAL ONE (12:14)
[2017-09-18 12:20] VITALS: BP 188/92; PULSE 89; RESP 18; O2SAT 94
--- NOTE | 2017-09-18 12:49 | RADRPT ---
EXAM DATE/TIME: 09/18/2017 10:29 [facility] COMPARISON: No previous studies available for comparison. EXTERNAL COMPARISON: [facility], MR ABDOMEN W/ AND W/O , Jul 16 2015, ULTRASOUND ABDOMEN LOWER LIMITED, JULY 12, 2015. INDICATIONS : Ascites. MEDICAL HISTORY : Hypertension. Arthritis. Osteoarthritis. Cirrhosis. Thyroid disease. Catatracts. Glaucoma. Peripheral neuropathy. Irregular heartbeat. Ovarian cysts. Mumps. Diabetes. Hepatitis. SURGICAL HISTORY : Hysterectomy. Appendectomy. Liver biopsy. Breast biopsy. ENCOUNTER: Initial ACUITY: 1 day PAIN SCORE: 0/10 LOCATION: Left lower quadrant FLUID: Total volume of 4,600 cc of Clear yellow/green. fluid was removed. Fluid was discarded. Paracentesis was therapeutic only. Post procedure scanning reveals no hematoma or other complication. TECHNIQUE: 1. Ultrasound guidance for abdominal paracentesis. 2. Paracentesis. The risks, benefits, and alternatives to ultrasound guided paracentesis were explained to the patient in detail including the risk of bleeding and infection. Written and verbal informed consent was obt ained. With the patient on the ultrasound table, ultrasound imaging was used to select the most appropriate approach for paracentesis. Overlying skin was prepped and draped in the usual sterile fashion and wi th a local anesthetic, a dermatotomy was made with an 11 blade scalpel. A 6 [place] [id number] ca theter was introduced into the peritoneal cavity and fluid was collected. The patient tolerated the procedure well and left the ultrasound suite in stable condition. CONCLUSION: Uncomplicated ultrasound guided paracentesis. Lex Higuera MD on September 18, 2017 at 12:47 Board Certified Radiologist. This report was verified electronically.
== END 2017-09-18 12:36 | disposition home or self-care (01) ==
LOC: HRAD 08:49 → HRIP 09:27 → HRAD 12:36
DX: R18.8 Other ascites (principal); I10 Essential (primary) hypertension; M19.90 Unspecified osteoarthritis, unspecified site; K74.60 Unspecified cirrhosis of liver; E07.9 Disorder of thyroid, unspecified; G62.9 Polyneuropathy, unspecified; E11.9 Type 2 diabetes mellitus without complications; Z79.4 Long term (current) use of insulin
CPT/HCPCS: 36415; 49083; 80053; 82105; 82140; 85025; 85610; 85730; C1729

== ENCOUNTER 2017-10-06 16:19 | Inpatient (IN) | payer OTHER, MEDICARE ==
[~2017-10-06] VITALS: Ht 157.5 cm; Wt 55.5 kg
[2017-10-06 16:22] VITALS: BP 108/62; PULSE 107; RESP 22; TEMP 97.5; O2SAT 96
--- NOTE | 2017-10-06 17:29 | PD ---
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 There is no dysuria, urgency, frequency. She has not had a bowel movement 24 hours but is passing gas. There is no blood in her vomit or her urine. PFSH Past Medical History Hx Anticoagulant Therapy: Yes (ASPIRIN 81mg) Arthritis: Yes Asthma: No Autoimmune Disease: Yes (HEPATITIS) Blood Disorders: No Anxiety: Yes Depression: Yes Heart Rhythm Problems: Yes (RBBB) Cancer: No Cardiovascular Problems: Yes (HTN) High Cholesterol: No Chemotherapy: No Chest Pain: No Congestive Heart Failure: No Cirrhosis: Yes COPD: No Cerebrovascular Accident: No Diabetes: Yes Diminished Hearing: No Endocrine: Yes Gastrointestinal Disorders: Yes (liver cirrhosis) GERD: No Genitourinary: No Headaches: Yes Hepatitis: Yes (AUTOIMMUNE) Hypertension: Yes Immune Disorder: Yes (autoimmune hepatitis) Implanted Vascular Access Dvce: No Musculoskeletal: No Neurologic: Yes (temporal arthritis) Psychiatric: Yes Reproductive: No Respiratory: No Immunizations Current: Yes Radiation Therapy: No Seizures: No Sleep Apnea: No Thyroid Disease: Yes Ovarian Cysts: Yes (1985) Past Surgical History Abdominal Surgery: Yes (APPENDECTOMY) Appendectomy: Yes Gynecologic Surgery: Yes (HYSTERECTOMY ) Hysterectomy: Yes Pacemaker: No Other Surgery: Yes (LIVER/BREAST BIOPSY 2005) Social History Alcohol Use: Yes Tobacco Use: No Substance Use: No (PT DENIES) Allergies-Medications (Allergen,Severity, Reaction): Coded Allergies: doxycycline (Unverified Allergy, Severe, Rash, 10/06/17) minocycline (Unverified Allergy, Severe, Rash, 10/06/17) morphine (Unverified Allergy, Severe, Rash, 10/06/17) penicillin G (Unverified Allergy, Severe, Rash, 10/06/17) tigecycline (Unverified Allergy, Severe, Rash, 10/06/17) Sulfa (Sulfonamide Antibiotics) (Unverified Allergy, Unknown, Rash, ) clindamycin (Unverified Allergy, Unknown, Nausea/Vomiting, 10/06/17) Reported Meds & Prescriptions Reported Meds & Active Scripts Active Amlodipine (Amlodipine Besylate) 2.5 Mg Tab 2.5 Mg PO DAILY Hydrochlorothiazide 12.5 Mg Cap 12.5 Mg PO DAILY Spironolactone 25 Mg Tab 25 Mg PO DAILY Prednisone 10 Mg Tab 10 Mg PO DAILY 30 Days Losartan (Losartan Potassium) 25 Mg Tab 25 Mg PO DAILY Clonidine (Clonidine HCl) 0.1 Mg Tab 0.1 Mg PO BID Pantoprazole (Pantoprazole Sodium) 40 Mg Tab 40 Mg PO DAILY Zoloft (Sertraline HCl) 50 Mg Tab 50 Mg PO DAILY Reported Xalatan Opth Drops (Latanoprost) 0.005% Drops 1 Drop EACH EYE HS Levemir Inj (Insulin Detemir) 1,000 unit/ 10 ML Vial 20 Units SQ BID Do not mix with any other Insulin. Levothyroxine (Levothyroxine Sodium) 88 Mcg Tab 88 Mcg PO DAILY Novolog Inj (Insulin Aspart) 1,000 Unit/10 Ml Vial 0 SQ DIRECTED Sliding Scale as directed. C-500 (Ascorbic Acid) 500 Mg Tab.chew 500 Mg PO DAILY Vitamin D3 (Cholecalciferol) 1,000 Unit Tab 1,000 Units PO DAILY Mercaptopurine 50 Mg Tab 50 Mg PO DAILY Enulose Liq (Lactulose (Encephalopathy) Liq) 10 Gm/15 Ml Soln 20 Gm PO BID Review of Systems Except as stated in HPI: all other systems reviewed are Neg General / Constitutional: No: Fever, Chills HENT: No: Headaches, Lightheadedness Cardiovascular: No: Chest Pain or Discomfort, Palpitations Respiratory: Positive: Cough, No: Shortness of Breath (Nonproductive) Gastrointestinal: Positive: Nausea, Vomiting, Abdominal Pain (With vomiting), No: Diarrhea, Hematemesis, Hematochezia Genitourinary: No: Dysuria, Incontinence Musculoskeletal: Positive: Weakness, No: Pain Neurologic: Positive: Weakness, No: Dizziness, Headache Physical Exam Narrative GENERAL: Well-developed well-nourished female in no acute respiratory distress. SKIN: Focused skin assessment warm/dry. HEAD: Atraumatic. Normocephalic. EYES: Pupils equal and round. No scleral icterus. No injection or drainage. ENT: No nasal bleeding or discharge. Mucous membranes pink and dry. NECK: Trachea midline. Supple. CARDIOVASCULAR: Rate in the high 90s.. No murmur appreciated. RESPIRATORY: No accessory muscle use. Clear to auscultation. Breath sounds equal bilaterally. GASTROINTESTINAL: Abdomen soft, non-tender, nondistended. Hepatic and splenic margins not palpable. MUSCULOSKELETAL: No obvious deformities. No clubbing. No cyanosis. No edema. Mild skin tenting. NEUROLOGICAL: Awake and alert. No obvious cranial nerve deficits. Motor grossly within normal limits. Normal speech. PSYCHIATRIC: Appropriate mood and affect; insight and judgment normal. Data Data Last Documented VS Vital Signs Date Time Temp Pulse Resp B/P (MAP) Pulse Ox O2 Delivery O2 Flow Rate FiO2 10/06/17 18:09 Room Air 10/06/17 18:05 82 18 136/74 (94) 96 10/06/17 16:22 97.5 Orders Orders Complete Blood Count With Diff (10/06/17 16:27) Comprehensive Metabolic Panel (10/06/17 16:27) Lipase (10/06/17 16:27) Prothrombin Time / Inr (Pt) (10/06/17 16:27) Act Partial Throm Time (Ptt) (10/06/17 16:27) Urinalysis - C+S If Indicated (10/06/17 16:27) Electrocardiogram (10/06/17 16:27) Beta Hydroxybutyrate (Acetone) (10/06/17 16:27) Ckmb (Isoenzyme) Profile (10/06/17 18:00) Troponin I (10/06/17 18:00) Sodium Chlor 0.9% 1000 Ml Inj (Ns 1000 M (10/06/17 19:30) Prochlorperazine Inj (Compazine Inj) (10/06/17 19:30) Labs Laboratory Tests Test 10/06/17 18:00 White Blood Count 4.6 TH/MM3 Red Blood Count 3.20 MIL/MM3 Hemoglobin 10.6 GM/DL Hematocrit 31.4 % Mean Corpuscular Volume 97.8 FL Mean Corpuscular Hemoglobin 33.1 PG Mean Corpuscular Hemoglobin Concent 33.9 % Red Cell Distribution Width 14.8 % Platelet Count 196 TH/MM3 Mean Platelet Volume 9.5 FL Neutrophils (%) (Auto) 74.8 % Lymphocytes (%) (Auto) 12.4 % Monocytes (%) (Auto) 10.8 % Eosinophils (%) (Auto) 1.2 % Basophils (%) (Auto) 0.8 % Neutrophils # (Auto) 3.5 TH/MM3 Lymphocytes # (Auto) 0.6 TH/MM3 Monocytes # (Auto) 0.5 TH/MM3 Eosinophils # (Auto) 0.1 TH/MM3 Basophils # (Auto) 0.0 TH/MM3 CBC Comment DIFF FINAL Differential Comment Prothrombin Time 11.1 SEC Prothromb Time International Ratio 1.1 RATIO Activated Partial Thromboplast Time 24.9 SEC Blood Urea Nitrogen 55 MG/DL Creatinine 2.13 MG/DL Random Glucose 81 MG/DL Total Protein 7.9 GM/DL Albumin 2.3 GM/DL Calcium Level 8.8 MG/DL Alkaline Phosphatase 276 U/L Aspartate Amino Transf (AST/SGOT) 44 U/L Alanine Aminotransferase (ALT/SGPT) 34 U/L Total Bilirubin 0.6 MG/DL Sodium Level 137 MEQ/L Potassium Level 5.2 MEQ/L Chloride Level 103 MEQ/L Carbon Dioxide Level 26.2 MEQ/L Anion Gap 8 MEQ/L Estimat Glomerular Filtration Rate 23 ML/MIN Total Creatine Kinase 51 U/L Troponin I LESS THAN 0.02 NG/ML Lipase 70 U/L B-Hydroxybutyrate 0.15 MMOL/L MDM Medical Decision Making Medical Screen Exam Complete: Yes Emergency Medical Condition: Yes Differential Diagnosis 67-year-old female with a history of diabetes mellitus, hepatitis induced cirrhosis, presents here with intractable nausea vomiting 3 days. The patient has Narrative Course This is a 67-year-old female with a history of diabetes mellitus, autoimmune- induced hepatitis/cirrhosis, presents here with nausea vomiting on inability to tolerate p.o.'s 3 days. The patient is noted to have acute on chronic kidney injury. Patient's hemoglobin is 10.0. Blood sugar is 81. The patient will be admitted under full admission to the [facility]. She has been given 1 L of IV fluid on 125 cc/h. She has also been given Compazine 10 mg IV 1 dose. Diagnosis Primary Impression: Intractable nausea and vomiting Additional Impressions: Diabetes mellitus Ovslu-[id number] kidney injury Anemia Autoimmune-induced hepatitis/cirrhosis Admitting Information Admitting Physician Requests: Admit Merlin Dockery MD Oct 06, 2017 17:29
[2017-10-06 18:05] VITALS: BP 136/74; PULSE 82; RESP 18; O2SAT 96
[2017-10-06 18:19] LABS: AUTOMATED NEUTROPHIL # 3.5 TH/MM3 (1.8-7.7); BASOPHIL % 0.8 % (0.0-2.0); EOSINOPHIL # 0.1 TH/MM3 (0-0.4); EOSINOPHIL % 1.2 % (0.0-4.0); HEMATOCRIT 31.4 % (35.0-46.0); HEMOGLOBIN 10.6 GM/DL (11.6-15.3); LYMPH % 12.4 % (9.0-44.0); LYMPHOCYTE # 0.6 TH/MM3 (1.0-4.8); MEAN CELL VOLUME 97.8 FL (80.0-100.0); MEAN CORPUSCULAR HEMOGLOBIN 33.1 PG (27.0-34.0); MEAN CORPUSCULAR HGB CONC 33.9 % (32.0-36.0); MEAN PLATELET VOLUME 9.5 FL (7.0-11.0); MONO % 10.8 % (0.0-8.0); MONOCYTE # 0.5 TH/MM3 (0-0.9); NEUT % 74.8 % (16.0-70.0); PLATELET COUNT 196 TH/MM3 (150-450); RED CELL DISTRIBUTION WIDTH 14.8 % (11.6-17.2); WHITE BLOOD COUNT 4.6 TH/MM3 (4.0-11.0)
[2017-10-06 18:27] LABS: INTERNATIONAL NORMALIZED RATIO 1.1 RATIO; PROTHROMBIN TIME - PATIENT 11.1 SEC (9.8-11.6)
[2017-10-06] MEDS ORDERED: LEVO88TA2 PO (18:28)
[2017-10-06] MEDS ORDERED: LEVEMIR SQ (18:28)
[2017-10-06] MEDS ORDERED: LATA.005%O EACH EYE (18:28)
[2017-10-06 18:44] LABS: ALBUMIN 2.3 GM/DL (3.4-5.0); ALT (GPT) 34 U/L (10-53); AST (GOT) 44 U/L (15-37); BICARBONATE 26.2 MEQ/L (21.0-32.0); BLOOD UREA NITROGEN 55 MG/DL (7-18); CALCIUM 8.8 MG/DL (8.5-10.1); CHLORIDE 103 MEQ/L (98-107); CREATININE 2.13 MG/DL (0.50-1.00); GLOMERULAR FILTRATION RATE 23 ML/MIN (>89); GLUCOSE,RANDOM 81 MG/DL (74-106); SODIUM (NA) 137 MEQ/L (136-145)
[2017-10-06 18:47] LABS: ALKALINE PHOSPHATASE 276 U/L (45-117); TOTAL BILIRUBIN ADULT 0.6 MG/DL (0.2-1.0); TOTAL PROTEIN 7.9 GM/DL (6.4-8.2); TROPONIN I LESS THAN 0.02 NG/ML (0.02-0.05)
[2017-10-06] MEDS ORDERED: PROCHLORPERAZINE INJ 10 MG/2 ML VIAL IV PUSH ONE (19:30)
[2017-10-06] MEDS: SODIUM CHLOR 0.9% 1000 ML INJ 1,000 ML IV SCH (19:52)
[2017-10-06 19:54] VITALS: BP 140/68; PULSE 72; RESP 17; O2SAT 99
--- NOTE | 2017-10-06 21:19 | HHI.HP ---
HPI Service [facility] Primary Care Physician Luis Clark DO Admission Diagnosis intractable nausea vomiting, acute on chronic kidney injury, DM, aut Diagnoses: Chief Complaint: Nausea and vomiting Travel History International Travel<30 Days: No Contact w/Intl Traveler <30 Da: No Traveled to Known Affected Are: No History of Present Illness 67-year-old female with a medical history significant for type 2 diabetes, liver cirrhosis secondary to autoimmune hepatitis, hypertension, esophageal strictures presents with complaint of intractable nausea and vomiting for the past 3 days. She reports she has not been able to eat anything. She is able to take some sips of liquids but has been unable to hold anything down. She denies any abdominal pain at rest but reports midepigastric discomfort with retching. She denies any hematemesis or diarrhea. She reports her blood sugars has been uncontrolled at home which she believes is the cause of her intractable nausea and vomiting. She denies any new changes to her medications. She is chronically on a low dose of steroid. She had a therapeutic paracentesis a couple weeks ago but reports her abdomen is increasingly distended again. Workup in the emergency room revealed acute on chronic renal failure and hyperkalemia. Review of Systems Constitutional: DENIES: Fever, Weight loss, Chills Gastrointestinal: COMPLAINS OF: Nausea, Vomiting Except as stated in HPI: all other systems reviewed are Neg Past Family Social History Past Medical History Autoimmune hepatitis Liver cirrhosis Temporal arthritis Diabetes mellitus Anxiety/depression Hypertension Esophageal strictures Past Surgical History Hysterectomy Liver biopsy Appendectomy EGD with dilatation Reported Medications Reported Meds & Active Scripts Active Amlodipine (Amlodipine Besylate) 2.5 Mg Tab 2.5 Mg PO DAILY Hydrochlorothiazide 12.5 Mg Cap 12.5 Mg PO DAILY Spironolactone 25 Mg Tab 25 Mg PO DAILY Prednisone 10 Mg Tab 10 Mg PO DAILY 30 Days Losartan (Losartan Potassium) 25 Mg Tab 25 Mg PO DAILY Clonidine (Clonidine HCl) 0.1 Mg Tab 0.1 Mg PO BID Pantoprazole (Pantoprazole Sodium) 40 Mg Tab 40 Mg PO DAILY Zoloft (Sertraline HCl) 50 Mg Tab 50 Mg PO DAILY Reported Xalatan Opth Drops (Latanoprost) 0.005% Drops 1 Drop EACH EYE HS Levemir Inj (Insulin Detemir) 1,000 unit/ 10 ML Vial 20 Units SQ BID Do not mix with any other Insulin. Levothyroxine (Levothyroxine Sodium) 88 Mcg Tab 88 Mcg PO DAILY Novolog Inj (Insulin Aspart) 1,000 Unit/10 Ml Vial 0 SQ DIRECTED Sliding Scale as directed. C-500 (Ascorbic Acid) 500 Mg Tab.chew 500 Mg PO DAILY Vitamin D3 (Cholecalciferol) 1,000 Unit Tab 1,000 Units PO DAILY Mercaptopurine 50 Mg Tab 50 Mg PO DAILY Enulose Liq (Lactulose (Encephalopathy) Liq) 10 Gm/15 Ml Soln 20 Gm PO BID Allergies: Coded Allergies: doxycycline (Unverified Allergy, Severe, Rash, 10/06/17) minocycline (Unverified Allergy, Severe, Rash, 10/06/17) morphine (Unverified Allergy, Severe, Rash, 10/06/17) penicillin G (Unverified Allergy, Severe, Rash, 10/06/17) tigecycline (Unverified Allergy, Severe, Rash, 10/06/17) Sulfa (Sulfonamide Antibiotics) (Unverified Allergy, Unknown, Rash, ) clindamycin (Unverified Allergy, Unknown, Nausea/Vomiting, 10/06/17) Family History Reviewed and found to be noncontributory. Social History Patient denies using tobacco, alcohol, or illicit drugs. Physical Exam Vital Signs Vital Signs Date Time Temp Pulse Resp B/P (MAP) Pulse Ox O2 Delivery O2 Flow Rate FiO2 10/06/17 19:54 72 17 140/68 (92) 99 Room Air 10/06/17 18:09 Room Air 10/06/17 18:05 82 18 136/74 (94) 96 10/06/17 16:22 97.5 107 22 108/62 (77) 96 Physical Exam GENERAL: This is a well-nourished, well-developed patient, in no apparent distress. SKIN: No rashes, ecchymoses or lesions. Cool and dry. HEAD: Atraumatic. Normocephalic. No temporal or scalp tenderness. EYES: Pupils equal round and reactive. Extraocular motions intact. No scleral icterus. No injection or drainage. ENT: Nose without bleeding, purulent drainage or septal hematoma. Throat without erythema, tonsillar hypertrophy or exudate. Uvula midline. Airway patent. NECK: Trachea midline. No JVD or lymphadenopathy. Supple, nontender, no meningeal signs. CARDIOVASCULAR: Regular rate and rhythm without murmurs, gallops, or rubs. RESPIRATORY: Clear to auscultation. Breath sounds equal bilaterally. No wheezes , rales, or rhonchi. GASTROINTESTINAL: Abdomen somewhat distended. Nontender. No guarding. MUSCULOSKELETAL: Extremities without clubbing, cyanosis, or edema. No joint tenderness, effusion, or edema noted. No calf tenderness. Negative Homans sign bilaterally. NEUROLOGICAL: Awake and alert. Cranial nerves II through XII intact. Motor and sensory grossly within normal limits. Five out of 5 muscle strength in all muscle groups. Normal speech. Laboratory Laboratory Tests Test 10/06/17 18:00 White Blood Count 4.6 Red Blood Count 3.20 Hemoglobin 10.6 Hematocrit 31.4 Mean Corpuscular Volume 97.8 Mean Corpuscular Hemoglobin 33.1 Mean Corpuscular Hemoglobin Concent 33.9 Red Cell Distribution Width 14.8 Platelet Count 196 Mean Platelet Volume 9.5 Neutrophils (%) (Auto) 74.8 Lymphocytes (%) (Auto) 12.4 Monocytes (%) (Auto) 10.8 Eosinophils (%) (Auto) 1.2 Basophils (%) (Auto) 0.8 Neutrophils # (Auto) 3.5 Lymphocytes # (Auto) 0.6 Monocytes # (Auto) 0.5 Eosinophils # (Auto) 0.1 Basophils # (Auto) 0.0 CBC Comment DIFF FINAL Differential Comment Prothrombin Time 11.1 Prothromb Time International Ratio 1.1 Activated Partial Thromboplast Time 24.9 Blood Urea Nitrogen 55 Creatinine 2.13 Random Glucose 81 Total Protein 7.9 Albumin 2.3 Calcium Level 8.8 Alkaline Phosphatase 276 Aspartate Amino Transf (AST/SGOT) 44 Alanine Aminotransferase (ALT/SGPT) 34 Total Bilirubin 0.6 Sodium Level 137 Potassium Level 5.2 Chloride Level 103 Carbon Dioxide Level 26.2 Anion Gap 8 Estimat Glomerular Filtration Rate 23 Total Creatine Kinase 51 Troponin I LESS THAN 0.02 Lipase 70 B-Hydroxybutyrate 0.15 Result Diagram: 10/06/17 1800 10/06/17 1800 Caprini VTE Risk Assessment Caprini VTE Risk Assessment: Mod/High Risk (score >= 2) VTE Pharm Contraindication: End Stage Liver Disease Caprini Risk Assessment Model Point Value = 1 Point Value = 2 Point Value = 3 Point Value = 5 Age 41-60 Minor surgery BMI > 25 kg/m2 Swollen legs Varicose veins or History of unexplained or recurrent spontaneous Oral contraceptives or hormone replacement Sepsis (< 1 month) Serious lung disease, including pneumonia (< 1 month) Abnormal pulmonary function Acute myocardial infarction Congestive heart failure (< 1 month) History of inflammatory bowel disease Medical patient at bed rest Age 61-74 Arthroscopic surgery Major open surgery (> 45 min) Laparoscopic surgery (> 45 min) Malignancy Confined to bed (> 72 hours) Immobilizing plaster cast Central venous access Age >= 75 History of VTE Family history of VTE Factor V Leiden Prothrombin [id number] Lupus anticoagulant Anticardiolipin antibodies Elevated serum homocysteine Heparin-induced thrombocytopenia Other congenital or acquired thrombophilia Stroke (< 1 month) Elective arthroplasty Hip, pelvis, or leg fracture Acute spinal cord injury (< 1 month) Prophylaxis Regimen Total Risk Factor Score Risk Level Prophylaxis Regimen 0-1 Low Early ambulation 2 Moderate Order ONE of the following: *Sequential Compression Device (SCD) *Heparin 5000 units SQ BID 3-4 Higher Order ONE of the following medications: *Heparin 5000 units SQ TID *Enoxaparin/Lovenox 40 mg SQ daily (WT < 150 kg, CrCl > 30 mL/min) *Enoxaparin/Lovenox 30 mg SQ daily (WT < 150 kg, CrCl > 10-29 mL/min) *Enoxaparin/Lovenox 30 mg SQ BID (WT < 150 kg, CrCl > 30 mL/min) AND/OR *Sequential Compression Device (SCD) 5 or more Highest Order ONE of the following medications: *Heparin 5000 units SQ TID (Preferred with Epidurals) *Enoxaparin/Lovenox 40 mg SQ daily (WT < 150 kg, CrCl > 30 mL/min) *Enoxaparin/Lovenox 30 mg SQ daily (WT < 150 kg, CrCl > 10-29 mL/min) *Enoxaparin/Lovenox 30 mg SQ BID (WT < 150 kg, CrCl > 30 mL/min) AND *Sequential Compression Device (SCD) Assessment and Plan Problem List: (1) Intractable nausea and vomiting ICD Code: R11.2 - Nausea with vomiting, unspecified Status: Acute Plan: Etiology unclear. Differential diagnoses include hyperglycemia, gastroparesis, worsening ascites. - Gently hydrate with IV fluids 1.5 L. - Antiemetics as needed. - monitor oral intake - Given extensive history of liver cirrhosis and esophageal strictures, consult GI for assistance. (2) [id number] kidney injury ICD Code: N17.9 - Acute kidney failure, unspecified; N18.9 - Chronic kidney disease, unspecified Status: Acute Plan: Likely worsened by dehydration. She does have liver cirrhosis but highly doubt hepatorenal syndrome at this point. - Monitor renal function. Expect some improvement with hydration. (3) Cirrhosis of liver with ascites ICD Code: K74.60 - Cirrhosis of liver with ascites Status: Acute Plan: Paracentesis 2 weeks ago but reports she is having increasing fluid. -Abdominal ultrasound to evaluate for ascites. Unclear if she will need repeat paracentesis. GI consult Permanent Comment: Last Edited By: Brandt Coker on Oct 06, 2017 21:42 (4) Type 2 diabetes mellitus ICD Code: E11.9 - Type 2 diabetes mellitus without complications Status: Chronic Plan: Resume Levemir 20 units twice daily Sliding scale insulin with Accu-Cheks (5) Autoimmune hepatitis ICD Code: K75.4 - Autoimmune hepatitis Status: Chronic Plan: Continue home medications GI consulted as above (6) HTN (hypertension) ICD Code: I10 - Essential (primary) hypertension Plan: Continue home medications except for losartan due to mild hyperkalemia and worsening renal function. Monitor BP and adjust antihypertensives as needed. (7) Hyperkalemia ICD Code: E87.5 - Hyperkalemia Plan: Mild. Repeat labs in AM. Discussed Condition With ED staff Physician Certification 2 Midnight Certification Type: Admission for Inpatient Services Order for Inpatient Services The services are ordered in accordance with Medicare regulations or non- Medicare payer requirements, as applicable. In the case of services not specified as inpatient-only, they are appropriately provided as inpatient services in accordance with the 2-midnight benchmark. Estimated LOS (days): 2 days is the estimated time the patient will need to remain in the hospital, assuming treatment plan goals are met and no additional complications. Post-Hospital Plan: Home Problem Qualifiers (1) [id number] kidney injury: Brandt Coker MD Oct 06, 2017 21:19
[2017-10-06] MEDS ORDERED: SODIUM CHLORIDE 0.9% FLUSH 10 ML FLUSH IV FLUSH PRN (21:45)
[2017-10-06] MEDS ORDERED: ACETAMINOPHEN 325 MG TAB PO PRN (21:45)
[2017-10-06] MEDS ORDERED: LACTULOSE SYRUP 20 GM/30 ML CUP PO PRN (21:45)
[2017-10-06] MEDS ORDERED: SENNOSIDES 8.6 MG TAB PO PRN (21:45)
[2017-10-06] MEDS ORDERED: GLUCAGON 1 MG/ML VIAL OTHER PRN (21:45)
[2017-10-06] MEDS ORDERED: NALOXONE HCL 0.4 MG/ML AMP IV PUSH PRN (21:45)
[2017-10-06] MEDS ORDERED: MAGNESIUM HYDROXIDE SUSP 30 ML CUP PO PRN (21:45)
[2017-10-06] MEDS ORDERED: BISACODYL 10 MG SUPP RECTAL PRN (21:45)
--- NOTE | 2017-10-06 22:50 | RADRPT ---
EXAM DATE/TIME: 10/06/2017 22:31 [facility] COMPARISON: No previous studies available for comparison. INDICATIONS : Ascities. MEDICAL HISTORY : Hypertension. Arthritis. Osteoarthritis. Cirrhosis. Thyroid disease. Catatracts. Glaucoma. Peripheral neuropathy. Irregular heartbeat. Ovarian cysts. Mumps. Diabetes. Hepatitis. SURGICAL HISTORY : Hysterectomy. Appendectomy. Liver biopsy. Breast biopsy. ENCOUNTER: Subsequent ACUITY: 3 weeks PAIN SCORE: 2/10 LOCATION: Abdomen. AREA EVALUATED: Abdomen. FINDINGS: Imaging of the abdomen and pelvis was performed to evaluate for ascites for possible paracentesis. CONCLUSION: 1. Moderate ascites is present Shaq Leal MD on October 06, 2017 at 22:49 Board Certified Radiologist. This report was verified electronically.
[2017-10-06 23:11] VITALS: BP 193/91; PULSE 93; RESP 16; TEMP 98; O2SAT 98
[2017-10-06 23:51] VITALS: BP 175/86; PULSE 87; RESP 16; TEMP 98; O2SAT 97
[2017-10-07] MEDS: SODIUM CHLOR 0.9% 1000 ML INJ 1,000 ML IV SCH (03:36)
[2017-10-07 04:10] VITALS: BP 158/73; PULSE 76; RESP 16; TEMP 98.5; O2SAT 94
[2017-10-07 06:59] LABS: AUTOMATED NEUTROPHIL # 2.2 TH/MM3 (1.8-7.7); BASOPHIL % 0.7 % (0.0-2.0); EOSINOPHIL # 0.1 TH/MM3 (0-0.4); EOSINOPHIL % 1.8 % (0.0-4.0); HEMATOCRIT 27.9 % (35.0-46.0); HEMOGLOBIN 9.5 GM/DL (11.6-15.3); LYMPH % 22.1 % (9.0-44.0); LYMPHOCYTE # 0.7 TH/MM3 (1.0-4.8); MEAN CELL VOLUME 97.1 FL (80.0-100.0); MEAN PLATELET VOLUME 9.4 FL (7.0-11.0); MONO % 10.3 % (0.0-8.0); MONOCYTE # 0.4 TH/MM3 (0-0.9); NEUT % 65.1 % (16.0-70.0); PLATELET COUNT 155 TH/MM3 (150-450); RED BLOOD COUNT 2.87 MIL/MM3 (4.00-5.30); RED CELL DISTRIBUTION WIDTH 14.9 % (11.6-17.2); WHITE BLOOD COUNT 3.4 TH/MM3 (4.0-11.0)
[2017-10-07] MEDS: LEVOTHYROXINE SODIUM 88 MCG TAB PO SCH (07:11)
[2017-10-07 07:20] LABS: AST (GOT) 31 U/L (15-37); BICARBONATE 27.7 MEQ/L (21.0-32.0); BLOOD UREA NITROGEN 52 MG/DL (7-18); CALCIUM 8.4 MG/DL (8.5-10.1); CHLORIDE 104 MEQ/L (98-107); CREATININE 1.63 MG/DL (0.50-1.00); GLOMERULAR FILTRATION RATE 32 ML/MIN (>89); GLUCOSE,RANDOM 194 MG/DL (74-106); SODIUM (NA) 138 MEQ/L (136-145)
[2017-10-07 07:22] LABS: ALT (GPT) 25 U/L (10-53)
[2017-10-07 07:29] LABS: ALKALINE PHOSPHATASE 234 U/L (45-117); TOTAL BILIRUBIN ADULT 0.7 MG/DL (0.2-1.0); TOTAL PROTEIN 6.6 GM/DL (6.4-8.2)
[2017-10-07 08:22] VITALS: BP 138/65; PULSE 89; RESP 18; TEMP 98.1; O2SAT 94
[2017-10-07] MEDS: INSULIN ASPART SUPPLEMENTAL SCALE SQ SCH ×4 (08:55→21:45)
[2017-10-07] MEDS: INSULIN DETEMIR 100 UNITS/ML VIAL SQ SCH ×2 (08:55→22:29)
[2017-10-07] MEDS: LACTULOSE SYRUP 20 GM/30 ML CUP PO SCH ×2 (08:57→20:48)
[2017-10-07] MEDS: PANTOPRAZOLE SOD 40 MG DELAYED RELEASE TAB PO SCH (08:58)
[2017-10-07] MEDS: cloNIDine HCL 0.1 MG TAB PO SCH ×2 (08:58→20:48)
[2017-10-07] MEDS: predniSONE 10 MG TAB PO SCH (08:58)
[2017-10-07] MEDS: CHOLECALCIFEROL (VIT D3) 1000 UNIT TAB PO SCH (08:58)
[2017-10-07] MEDS: SERTRALINE HCL 50 MG TAB PO SCH (08:58)
[2017-10-07] MEDS: SPIRONOLACTONE 25 MG TAB PO SCH (08:58)
[2017-10-07] MEDS: amLODIPine BESYLATE 5 MG TAB PO SCH (08:58)
[2017-10-07] MEDS: ASCORBIC ACID 500 MG TAB PO SCH (08:58)
[2017-10-07] MEDS: MERCAPTOPURINE 50 MG TAB PO SCH ×2 (09:00→11:11)
[2017-10-07] MEDS: SODIUM CHLORIDE 0.9% FLUSH 10 ML FLUSH IV FLUSH SCH ×2 (09:00→20:48)
--- NOTE | 2017-10-07 09:25 | PD.CONS ---
HPI History of Present Illness This is a 67 year old female with hx autoimmune hepatitis, esophageal stricture , who presented to ER for n/v. Onset 3 days ago. She vomits irrespective of eating, sometimes food and sometimes "phlegmy looking" emesis. no blood or coffee ground material in emesis. She admits abdominal pain in umbilical region that is relieved after vomiting. the pain is dull. She gets n/v when her blood sugar is high. She had a barium swallow a few weeks ago after bread was getting stuck and finding was presbyesophagus. She had EGD and dilatation of esophageal stricture 04/16/17 and a normal GES 04/17/17. US showed moderate ascites. She had paracentesis couple weeks ago but feels distended once more. She admits constipation recently but had a BM today and is feeling somewhat better. She has been taking spironolactone and lasix, and following a low sodium diet. (Amelia Greene) PFSH Past Medical History Autoimmune hepatitis Liver cirrhosis Temporal arthritis Diabetes mellitus Anxiety/depression Hypertension Esophageal strictures Past Surgical History Hysterectomy Liver biopsy Appendectomy EGD with dilatation (Amelia Greene) Coded Allergies: doxycycline (Unverified Allergy, Severe, Rash, 10/06/17) minocycline (Unverified Allergy, Severe, Rash, 10/06/17) morphine (Unverified Allergy, Severe, Rash, 10/06/17) penicillin G (Unverified Allergy, Severe, Rash, 10/06/17) tigecycline (Unverified Allergy, Severe, Rash, 10/06/17) Sulfa (Sulfonamide Antibiotics) (Unverified Allergy, Unknown, Rash, ) clindamycin (Unverified Allergy, Unknown, Nausea/Vomiting, 10/06/17) Family History Reviewed and found to be noncontributory. Social History Patient denies using tobacco, alcohol, or illicit drugs. (Amelia Greene) Review of Systems Constitutional: DENIES: Fever Endocrine: DENIES: Polydipsia Eyes: DENIES: Blurred vision Ears, nose, mouth, throat: DENIES: Hearing loss Respiratory: DENIES: Cough Cardiovascular: DENIES: Chest pain Gastrointestinal: COMPLAINS OF: Abdominal pain, Constipation, Nausea, Vomiting , DENIES: Black stools, Bloody stools, Diarrhea, Hematemesis Genitourinary: DENIES: Hematuria Musculoskeletal: DENIES: Muscle aches Integumentary: DENIES: Jaundice Hematologic/lymphatic: DENIES: Bruising Immunologic/allergic: DENIES: Eczema Neurologic: DENIES: Abnormal gait Psychiatric: DENIES: Confusion (Amelia Greene) GI Exam Vitals I&O Vital Signs Date Time Temp Pulse Resp B/P (MAP) Pulse Ox O2 Delivery O2 Flow Rate FiO2 10/07/17 08:22 98.1 89 18 138/65 (89) 94 10/07/17 04:10 98.5 76 16 158/73 (101) 94 10/06/17 23:51 98.0 87 16 175/86 (115) 97 10/06/17 23:11 98.0 93 16 193/91 (125) 98 10/06/17 22:52 10/06/17 19:54 72 17 140/68 (92) 99 Room Air 10/06/17 18:09 Room Air 10/06/17 18:05 82 18 136/74 (94) 96 10/06/17 16:22 97.5 107 22 108/62 (77) 96 I/O 10/06/17 10/06/17 10/06/17 10/07/17 10/07/17 10/07/17 07:00 15:00 23:00 07:00 15:00 23:00 Intake Total 300 ml Balance 300 ml Intake Oral 300 ml # Voids 1 # Bowel Movements 1 Imaging Last Impressions Abdomen Ultrasound 10/06/17 0000 Signed Impressions: Service Date/Time: Friday, October 06, 2017 22:31 - CONCLUSION: 1. Moderate ascites is present Shaq Leal MD Laboratory Test 10/06/17 18:00 10/07/17 05:54 White Blood Count 4.6 TH/MM3 3.4 TH/MM3 Red Blood Count 3.20 MIL/MM3 2.87 MIL/MM3 Hemoglobin 10.6 GM/DL 9.5 GM/DL Hematocrit 31.4 % 27.9 % Mean Corpuscular Volume 97.8 FL 97.1 FL Mean Corpuscular Hemoglobin 33.1 PG 33.0 PG Mean Corpuscular Hemoglobin Concent 33.9 % 34.0 % Red Cell Distribution Width 14.8 % 14.9 % Platelet Count 196 TH/MM3 155 TH/MM3 Mean Platelet Volume 9.5 FL 9.4 FL Neutrophils (%) (Auto) 74.8 % 65.1 % Lymphocytes (%) (Auto) 12.4 % 22.1 % Monocytes (%) (Auto) 10.8 % 10.3 % Eosinophils (%) (Auto) 1.2 % 1.8 % Basophils (%) (Auto) 0.8 % 0.7 % Neutrophils # (Auto) 3.5 TH/MM3 2.2 TH/MM3 Lymphocytes # (Auto) 0.6 TH/MM3 0.7 TH/MM3 Monocytes # (Auto) 0.5 TH/MM3 0.4 TH/MM3 Eosinophils # (Auto) 0.1 TH/MM3 0.1 TH/MM3 Basophils # (Auto) 0.0 TH/MM3 0.0 TH/MM3 CBC Comment DIFF FINAL DIFF FINAL Differential Comment Prothrombin Time 11.1 SEC Prothromb Time International Ratio 1.1 RATIO Activated Partial Thromboplast Time 24.9 SEC Blood Urea Nitrogen 55 MG/DL 52 MG/DL Creatinine 2.13 MG/DL 1.63 MG/DL Random Glucose 81 MG/DL 194 MG/DL Total Protein 7.9 GM/DL 6.6 GM/DL Albumin 2.3 GM/DL 2.0 GM/DL Calcium Level 8.8 MG/DL 8.4 MG/DL Alkaline Phosphatase 276 U/L 234 U/L Aspartate Amino Transf (AST/SGOT) 44 U/L 31 U/L Alanine Aminotransferase (ALT/SGPT) 34 U/L 25 U/L Total Bilirubin 0.6 MG/DL 0.7 MG/DL Sodium Level 137 MEQ/L 138 MEQ/L Potassium Level 5.2 MEQ/L 5.0 MEQ/L Chloride Level 103 MEQ/L 104 MEQ/L Carbon Dioxide Level 26.2 MEQ/L 27.7 MEQ/L Anion Gap 8 MEQ/L 6 MEQ/L Estimat Glomerular Filtration Rate 23 ML/MIN 32 ML/MIN Total Creatine Kinase 51 U/L Troponin I LESS THAN 0.02 NG/ML Lipase 70 U/L B-Hydroxybutyrate 0.15 MMOL/L Physical Examination HEENT: PERRL; normocephalic; atraumatic; no jaundice. CHEST: CTA CARDIAC: Regular rate and rhythm with no murmur gallop or rubs. ABDOMEN: Soft, distended, LUQ and epigastric TTP; no hepatosplenomegaly; bowel sounds are present in all four quadrants. EXTREMITIES: No clubbing, cyanosis, or edema. SKIN: Normal; no rash; no jaundice. PROCESS PLANT OPERATOR: No focal deficits; alert and oriented times three. (Amelia Greene) Assessment and Plan Plan ASSESSMENT - n/v, upper quadrant pain - onset 3 days ago. admits some constipation but had BM this morning and has had some relief. lipase 70. could be r/t ascites vs gastritis vs constipation. 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 US showed moderate ascites. She had a therapeutic paracentesis 09/18/17, 4600 cc fluid removed. PLAN - CT abd - EGD tomorrow - obtain consent - NPO after midnight - clears and advance today if tolerated - when eating, low sodium diet - continue diuretics - continue lactulose - further recs to follow pt seen by myself and Dr Byrd and this note is written on his behalf (Amelia Greene) Plan Patient was seen and examined, agree with above-noted, unclear etiology for the pain and the nausea vomiting, we'll plan upper endoscopy unless something on the CT scan that change the course of action (Maria M Byrd MD) Amelia Greene Oct 07, 2017 09:25 Maria M Byrd MD Oct 07, 2017 15:53
[2017-10-07] MEDS ORDERED: INFLUENZA VIRUS VACCINE (QUADRIVALENT) 0.5 ML SYR IM ONE (10:00)
--- NOTE | 2017-10-07 11:32 | EKG ---
Date Performed: 10/06/2017 Time Performed: 18:07:41 PTAGE: 67 years EKG: Sinus rhythm LEFT ATRIAL ENLARGEMENT POSSIBLE ANTERIOR MYOCARDIAL INFARCTION INFERIOR MYOCARDIAL INFARCTION ABNOR MAL ECG PREVIOUS TRACING : 04/29/2017 15.21 Since the prior tracing, there has been no significant newsome DOCTOR: Shaq Reyes Interpretating Date/Time 10/07/2017 11:30:57
[2017-10-07 12:02] VITALS: BP 97/53; PULSE 89; RESP 18; TEMP 98.3; O2SAT 96
[2017-10-07] MEDS ORDERED: DIATRIZOATE MEGLUM/DIATRIZOATE SOD 9 ML CUP PO ONE (12:30)
[2017-10-07] MEDS: ONDANSETRON HCL 4 MG/2 ML VIAL IVP PRN (12:35)
--- NOTE | 2017-10-07 15:18 | HHI.PR ---
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 Patient seen and examined today lying in bed. Reports she continues to have pain but only with palpation on her abdomen. States that EGD will be done tomorrow by GI. She will undergo MRI today. Otherwise, denies SOB/ dyspnea. Denies chest pain, palpitations, headaches, dizziness. Denies fevers, chills, n/v/d. Denies dysuria. Objective Vitals Vital Signs Date Time Temp Pulse Resp B/P (MAP) Pulse Ox O2 Delivery O2 Flow Rate FiO2 10/07/17 12:02 98.3 89 18 97/53 (68) 96 10/07/17 08:22 98.1 89 18 138/65 (89) 94 10/07/17 04:10 98.5 76 16 158/73 (101) 94 10/06/17 23:51 98.0 87 16 175/86 (115) 97 10/06/17 23:11 98.0 93 16 193/91 (125) 98 10/06/17 22:52 10/06/17 19:54 72 17 140/68 (92) 99 Room Air 10/06/17 18:09 Room Air 10/06/17 18:05 82 18 136/74 (94) 96 10/06/17 16:22 97.5 107 22 108/62 (77) 96 I/O 10/06/17 10/06/17 10/06/17 10/07/17 10/07/17 10/07/17 07:00 15:00 23:00 07:00 15:00 23:00 Intake Total 300 ml Balance 300 ml Intake Oral 300 ml # Voids 1 # Bowel Movements 1 Result Diagram: 10/07/17 0554 10/07/17 0554 Imaging Last Impressions Abdomen Ultrasound 10/06/17 0000 Signed Impressions: Service Date/Time: Friday, October 06, 2017 22:31 - CONCLUSION: 1. Moderate ascites is present Shaq Leal MD Objective Remarks GENERAL: This is a well-nourished, well-developed patient, in no apparent distress. SKIN: Warm and dry. HEENT: Normocephalic. Pupils equal round and reactive. Nose without bleeding. Airway patent. NECK: Trachea midline. No JVD. Supple. CARDIOVASCULAR: Regular rate and rhythm without murmurs, gallops, or rubs. RESPIRATORY: Clear to auscultation. Breath sounds equal bilaterally. No wheezes , rales, or rhonchi. GASTROINTESTINAL: Abdomen soft, nondistended. Bowel Sounds normoactive x4. Tenderness to palpation mid epigastric to right upper quadrant region MUSCULOSKELETAL: Extremities without clubbing, cyanosis, or edema. NEUROLOGICAL: Awake and alert. Oriented to time, place, person. No focal neuro deficit. Moves all extremities. Normal speech. A/P Problem List: (1) Intractable nausea and vomiting ICD Code: R11.2 - Nausea with vomiting, unspecified Status: Acute (2) Iavcm-yc-qilkvhx kidney injury ICD Code: N17.9 - Acute kidney failure, unspecified; N18.9 - Chronic kidney disease, unspecified Status: Acute (3) Cirrhosis of liver with ascites ICD Code: K74.60 - Cirrhosis of liver with ascites Status: Acute Permanent Comment: Last Edited By: Brandt Coker on Oct 06, 2017 21:42 (4) Type 2 diabetes mellitus ICD Code: E11.9 - Type 2 diabetes mellitus without complications Status: Chronic (5) Autoimmune hepatitis ICD Code: K75.4 - Autoimmune hepatitis Status: Chronic (6) HTN (hypertension) ICD Code: I10 - Essential (primary) hypertension (7) Hyperkalemia ICD Code: E87.5 - Hyperkalemia Assessment and Plan 67-year-old female with a medical history significant for type 2 diabetes, 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 Intractable nausea vomiting - Etiology is unclear however patient had history of liver cirrhosis, esophageal stricture, diabetes which can cause gastroparesis - Gastroenterology service consulted - Zofran as needed - IV fluid hydration Acute on chronic kidney injury - worsened by dehydration, highly unlikely hepatorenal syndrome at this point - Avoid nephrotoxins. Monitor renal function. Liver cirrhosis with ascites - Paracentesis done 2 weeks ago. Patient reports increasing fluids - Abdominal ultrasound showed ordered ascites present - Possible paracentesis DM 2 - Resume Levemir 20 units twice daily - Sliding scale insulin with Accu-Cheks HTN - Continue home medications except for losartan due to mild hyperkalemia and worsening renal function. - Monitor BP and adjust antihypertensives as needed. DVT prop SCDs Discharge Planning Plan for EGD tomorrow Problem Qualifiers (1) Uaajx-qi-ldagcbu kidney injury: Teresa Rosen Oct 07, 2017 15:18
[2017-10-07 15:23] VITALS: BP 139/66; PULSE 81; RESP 18; TEMP 98.2; O2SAT 97
[2017-10-07] MEDS ORDERED: IODIXANOL 320 MG/ML 10 ML VIAL (for Rad CT) IVCONTRAST ONE (17:28)
--- NOTE | 2017-10-07 17:38 | RADRPT ---
EXAM DATE/TIME: 10/07/2017 17:00 [facility] COMPARISON: CT ABDOMEN & PELVIS W CONTRAST, April 15, 2017, 20:18. INDICATIONS : Lower abdomen pain IV CONTRAST: 47 cc Visipaque (iodixanol) IV ORAL CONTRAST: Prescribed oral contrast ingested. RADIATION DOSE: 6.67 CTDIvol (mGy) MEDICAL HISTORY : Hypertension. Pancreatitis. Cirrhosis.Hepatitis diabetes,colitis SURGICAL HISTORY : Hysterectomy. ENCOUNTER: Initial ACUITY: 1 day PAIN SCALE: 4/10 LOCATION: Abdomen TECHNIQUE: Volumetric scanning of the abdomen and pelvis was performed. Using automated exposure control and ad justment of the mA and/or kV according to patient size, radiation dose was kept as low as reasonably achievable to obtain optimal diagnostic quality images. DICOM format image data is available electro nically for review and comparison. FINDINGS: LOWER LUNGS: Mild bibasilar atelectasis. LIVER: Markedly cirrhotic appearance as previously. No definite focal mass or biliary ductal dilatation. Abu ndant ascites. SPLEEN: Mildly enlarged without focal mass. PANCREAS: Within normal limits. KIDNEYS: Normal in size and shape. There is no mass, stone or hydronephrosis. ADRENAL GLANDS: Within normal limits. VASCULAR: There is no aortic aneurysm. BOWEL/MESENTERY: There is mild distention and possible mild concentric wall thickening involving the proximal colon, s pecifically the cecum which is nonspecific. Slight distention of small bowel loops which may be mild ileus ABDOMINAL WALL: Within normal limits. RETROPERITONEUM: There is no lymphadenopathy. BLADDER: No wall thickening or mass. REPRODUCTIVE: Uterus surgically absent. INGUINAL: There is no lymphadenopathy or hernia. MUSCULOSKELETAL: Within normal limits for patient age. CONCLUSION: Increased ascites. Mild possible proximal colonic wall thickening and mild nonspecific distention of small bowel and pro ximal colon. Yayo Miller MD on October 07, 2017 at 17:32 Board Certified Radiologist. This report was verified electronically.
[2017-10-07 19:40] VITALS: BP 153/81; PULSE 91; RESP 13; TEMP 97.5; O2SAT 97
[2017-10-07] MEDS: LATANOPROST 0.005% OPHT SOLN 2.5 ML BTL EACH EYE SCH (21:39)
[2017-10-07] MEDS ORDERED: CHLORHEXIDINE GLUCONATE 2 % 1 PACK (2 CLOTHS) TOPICAL PRN (21:45)
[2017-10-07] MEDS ORDERED: SODIUM CHLORID 0.9% 500 ML IV PRN (21:45)
[2017-10-07] MEDS ORDERED: LACTATED RINGER'S 1000 ML IV PRN (21:45)
[2017-10-07] MEDS ORDERED: METOPROLOL TARTRATE 25 MG TAB PO PRN (21:45)
[2017-10-07] MEDS ORDERED: POVIDONE IODINE 5% (ANTISEPSIS KIT) 4 APPLICATIONS EACH NARE PRN (21:45)
[2017-10-07 23:27] VITALS: BP 116/61; PULSE 69; RESP 16; TEMP 97.8; O2SAT 95
[2017-10-08 04:00] VITALS: BP 158/74; PULSE 96; RESP 15; TEMP 98; O2SAT 91
[2017-10-08] MEDS: DEXTROSE 50% IN WATER 50 ML VIAL(D50) IV PUSH PRN ×2 (04:04→08:45)
[2017-10-08] MEDS: LEVOTHYROXINE SODIUM 88 MCG TAB PO SCH (05:20)
[2017-10-08 07:29] VITALS: BP 142/65; PULSE 93; RESP 18; TEMP 98; O2SAT 93
[2017-10-08] MEDS: INSULIN ASPART SUPPLEMENTAL SCALE SQ SCH ×4 (08:36→21:19)
[2017-10-08] MEDS: SODIUM CHLORIDE 0.9% FLUSH 10 ML FLUSH IV FLUSH SCH ×2 (08:48→21:00)
[2017-10-08] MEDS: SERTRALINE HCL 50 MG TAB PO SCH (08:49)
[2017-10-08] MEDS: ASCORBIC ACID 500 MG TAB PO SCH (08:49)
[2017-10-08] MEDS: PANTOPRAZOLE SOD 40 MG DELAYED RELEASE TAB PO SCH (08:49)
[2017-10-08] MEDS: LACTULOSE SYRUP 20 GM/30 ML CUP PO SCH ×2 (08:50→21:15)
[2017-10-08] MEDS: SPIRONOLACTONE 25 MG TAB PO SCH (08:50)
[2017-10-08] MEDS: amLODIPine BESYLATE 5 MG TAB PO SCH (08:50)
[2017-10-08] MEDS: cloNIDine HCL 0.1 MG TAB PO SCH ×2 (08:50→21:15)
[2017-10-08] MEDS: predniSONE 10 MG TAB PO SCH (08:50)
[2017-10-08] MEDS: CHOLECALCIFEROL (VIT D3) 1000 UNIT TAB PO SCH (08:51)
[2017-10-08] MEDS: INSULIN DETEMIR 100 UNITS/ML VIAL SQ SCH (08:51)
[2017-10-08] MEDS: MERCAPTOPURINE 50 MG TAB PO SCH (08:53)
[2017-10-08] MEDS ORDERED: LIDOCAINE HCL 1% PF 5 ML SYRINGE OTHER ONE (12:00)
--- NOTE | 2017-10-08 12:38 | PD.PROCEDR ---
GI Procedure PROCEDURE PERFORMED EGD with biopsy INDICATION FOR PROCEDURE Nausea vomiting, cirrhosis PROCEDURE: The procedure, risks and benefits were discussed with Ms. Pichardo and informed consent was obtained. Anesthesia sedated her with Diprivan. She was placed in the left lateral decubitus position. EGD: The Pentax videoscope was introduced through the oropharynx and advanced to the second portion of the duodenum under direct visualization. Retroflexion was performed in the stomach. FINDINGS: The esophagus there was grade 1 esophageal varices 2 columns no stigmata of recent bleeding or high risk for bleeding otherwise unremarkable The stomach there was a small hiatal hernia there was patchy erythema in the antrum with some nodularity this is of unclear significance this was biopsied the rest of the stomach unremarkable with no gastric varices The duodenum this was normal ESTIMATED BLOOD LOSS: None SPECIMENS REMOVED: Gastric biopsies COMPLICATIONS: None IMPRESSION: Esophageal varices Hiatal hernia Gastritis PLAN: Await biopsies Continue with current supportive care Monitor labs Jered Caldwell MD Oct 08, 2017 12:37
--- NOTE | 2017-10-08 14:28 | HHI.PR ---
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 Patient seen and examined today lying in bed. Status post EGD patient states that they found esophageal varices if she could not remember the rest. States she is doing okay. Complaints of shortness of breath increasing with movement especially with ambulating towards the bathroom. Denies chest pain, palpitations, dizziness, headaches. His fevers, chills, nausea, vomiting, Dysuria. Objective Vitals Vital Signs Date Time Temp Pulse Resp B/P (MAP) Pulse Ox O2 Delivery O2 Flow Rate FiO2 10/08/17 12:30 97.4 64 16 101/64 (76) 96 10/08/17 12:12 97.4 60 14 99/64 (76) 96 10/08/17 07:29 98.0 93 18 142/65 (90) 93 10/08/17 04:00 98.0 96 15 158/74 (102) 91 10/07/17 23:27 97.8 69 16 116/61 (79) 95 10/07/17 19:40 97.5 91 13 153/81 (105) 97 10/07/17 15:23 98.2 81 18 139/66 (90) 97 I/O 10/07/17 10/07/17 10/07/17 10/08/17 10/08/17 10/08/17 07:00 15:00 23:00 07:00 15:00 23:00 Intake Total 300 ml 1000 ml 200 ml Balance 300 ml 1000 ml 200 ml Intake Oral 300 ml IV Total 1000 ml Other 200 ml # Voids 1 4 2 # Bowel Movements 1 1 Result Diagram: 10/07/17 0554 10/08/17 1014 Imaging Last Impressions Abdomen/Pelvis CT 10/07/17 0000 Signed Impressions: Service Date/Time: Saturday, October 07, 2017 17:00 - CONCLUSION: Increased ascites. Mild possible proximal colonic wall thickening and mild nonspecific distention of small bowel and proximal colon. Yayo Miller MD Abdomen Ultrasound 10/06/17 0000 Signed Impressions: Service Date/Time: Friday, October 06, 2017 22:31 - CONCLUSION: 1. Moderate ascites is present Shaq Leal MD Objective Remarks GENERAL: This is a well-nourished, well-developed patient, in no apparent distress. SKIN: Warm and dry. HEENT: Normocephalic. Pupils equal round and reactive. Nose without bleeding. Airway patent. NECK: Trachea midline. No JVD. Supple. CARDIOVASCULAR: Regular rate and rhythm without murmurs, gallops, or rubs. RESPIRATORY: Clear to auscultation. Breath sounds equal bilaterally. No wheezes , rales, or rhonchi. GASTROINTESTINAL: Abdomen soft, nondistended. Bowel Sounds normoactive x4. Tenderness to palpation mid epigastric to right upper quadrant region MUSCULOSKELETAL: Extremities without clubbing, cyanosis, or edema. NEUROLOGICAL: Awake and alert. Oriented to time, place, person. No focal neuro deficit. Moves all extremities. Normal speech. A/P Problem List: (1) Intractable nausea and vomiting ICD Code: R11.2 - Nausea with vomiting, unspecified Status: Acute (2) Uwqqw-pg-sebvidw kidney injury ICD Code: N17.9 - Acute kidney failure, unspecified; N18.9 - Chronic kidney disease, unspecified Status: Acute (3) Cirrhosis of liver with ascites ICD Code: K74.60 - Cirrhosis of liver with ascites Status: Acute Permanent Comment: Last Edited By: Brandt Coker on Oct 06, 2017 21:42 (4) Type 2 diabetes mellitus ICD Code: E11.9 - Type 2 diabetes mellitus without complications Status: Chronic (5) Autoimmune hepatitis ICD Code: K75.4 - Autoimmune hepatitis Status: Chronic (6) HTN (hypertension) ICD Code: I10 - Essential (primary) hypertension (7) Hyperkalemia ICD Code: E87.5 - Hyperkalemia Assessment and Plan 67-year-old female with a medical history significant for type 2 diabetes, 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 Intractable nausea vomiting Status post EGD 10/08/17 - Etiology is unclear however patient had history of liver cirrhosis, esophageal stricture, diabetes which can cause gastroparesis - Gastroenterology service consulted. Status post EGD found to have grade 1 esophageal varices, small hiatal hernia in the stomach and patchy erythema in the antrum with some nodularity which was biopsied. No gastric varices. The duodenum was normal. - Zofran as needed - On gentle hydration. Acute on chronic kidney injury - worsened by dehydration, highly unlikely hepatorenal syndrome at this point - Avoid nephrotoxins. Monitor renal function. 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 Liver cirrhosis with ascites - Paracentesis done 2 weeks ago. Patient reports increasing fluids - Abdominal ultrasound showed moderate ascites present - Plan for paracentesis as patient complaints of increasing shortness of breath and debility DM 2 - Levemir 20 units twice daily, hold for now blood glucoses been low, resume - Sliding scale insulin with Accu-Cheks HTN - Continue home medications except for losartan due to mild hyperkalemia and worsening renal function. - Monitor BP and adjust antihypertensives as needed. DVT prop SCDs Discharge Planning Plan to DC when clinically stable. Possible US guided paracentesis. Problem Qualifiers (1) Ethqm-dh-ktoxjbi kidney injury: Teresa Rosen Oct 08, 2017 14:28
[2017-10-08 14:55] VITALS: BP 157/89; PULSE 83; RESP 18; TEMP 97; O2SAT 99
[2017-10-08 20:00] VITALS: BP 160/74; PULSE 92; RESP 22; TEMP 98.4; O2SAT 96
[2017-10-08] MEDS: LATANOPROST 0.005% OPHT SOLN 2.5 ML BTL EACH EYE SCH (21:21)
[2017-10-08 22:32] LABS: BACTERIA, URINE OCC /hpf; BILIRUBIN, URINE NEG (NEG); BLOOD, URINE NEG (NEG); GLUCOSE,URINE 1000 mg/dL (NEG); HYALINE CAST, URINE 10 /lpf (RARE); KETONE, URINE NEG (NEG); NITRITE,URINE NEG (NEG); PH, URINE 5.5 (5.0-8.5); SQUAMOUS EPITHELIAL CELL URINE 1 /hpf (0-5); URINE COLOR YELLOW (YELLW/STRAW); URINE LEUKOCYTE ESTERASE MOD (NEG)
[2017-10-09] VITALS (15 sets, daily range): BP systolic 121–148; BP diastolic 63–75; PULSE 74–97; RESP 14–20; TEMP 98–100.5; O2SAT 93–98
[2017-10-09] MEDS: LEVOTHYROXINE SODIUM 88 MCG TAB PO SCH (05:54)
[2017-10-09 08:00] LABS: INTERNATIONAL NORMALIZED RATIO 1.1 RATIO; PROTHROMBIN TIME - PATIENT 11.5 SEC (9.8-11.6)
[2017-10-09 08:09] LABS: HEMATOCRIT 28.3 % (35.0-46.0); HEMOGLOBIN 9.5 GM/DL (11.6-15.3); MEAN CORPUSCULAR HEMOGLOBIN 32.9 PG (27.0-34.0); MEAN CORPUSCULAR HGB CONC 33.5 % (32.0-36.0); MEAN PLATELET VOLUME 9.3 FL (7.0-11.0); PLATELET COUNT 153 TH/MM3 (150-450); RED BLOOD COUNT 2.88 MIL/MM3 (4.00-5.30); RED CELL DISTRIBUTION WIDTH 15.4 % (11.6-17.2); WHITE BLOOD COUNT 3.3 TH/MM3 (4.0-11.0)
[2017-10-09 08:32] LABS: ALKALINE PHOSPHATASE 246 U/L (45-117); ALT (GPT) 26 U/L (10-53); AST (GOT) 34 U/L (15-37); BICARBONATE 22.9 MEQ/L (21.0-32.0); BLOOD UREA NITROGEN 43 MG/DL (7-18); CALCIUM 8.4 MG/DL (8.5-10.1); CHLORIDE 98 MEQ/L (98-107); CREATININE 1.37 MG/DL (0.50-1.00); GLOMERULAR FILTRATION RATE 39 ML/MIN (>89); SODIUM (NA) 132 MEQ/L (136-145); TOTAL BILIRUBIN ADULT 0.8 MG/DL (0.2-1.0); TOTAL PROTEIN 6.6 GM/DL (6.4-8.2)
[2017-10-09 08:40] LABS: GLUCOSE,RANDOM 482 MG/DL (74-106)
[2017-10-09] MEDS ORDERED: INSULIN ASPART 1,000 UNITS/10 ML VIAL SQ ONE ×2 (09:30→13:00)
[2017-10-09] MEDS: MERCAPTOPURINE 50 MG TAB PO SCH (09:36)
[2017-10-09] MEDS: SPIRONOLACTONE 25 MG TAB PO SCH (09:37)
[2017-10-09] MEDS: cloNIDine HCL 0.1 MG TAB PO SCH ×2 (09:37→20:31)
[2017-10-09] MEDS: INSULIN ASPART SUPPLEMENTAL SCALE SQ SCH ×4 (09:37→20:32)
[2017-10-09] MEDS: amLODIPine BESYLATE 5 MG TAB PO SCH (09:37)
[2017-10-09] MEDS: INSULIN DETEMIR 100 UNITS/ML VIAL SQ SCH ×2 (09:37→20:31)
[2017-10-09] MEDS: CHOLECALCIFEROL (VIT D3) 1000 UNIT TAB PO SCH (09:38)
[2017-10-09] MEDS: predniSONE 10 MG TAB PO SCH (09:38)
[2017-10-09] MEDS: SERTRALINE HCL 50 MG TAB PO SCH (09:38)
[2017-10-09] MEDS: PANTOPRAZOLE SOD 40 MG DELAYED RELEASE TAB PO SCH (09:38)
[2017-10-09] MEDS: ASCORBIC ACID 500 MG TAB PO SCH (09:38)
[2017-10-09] MEDS: LACTULOSE SYRUP 20 GM/30 ML CUP PO SCH ×2 (09:38→20:30)
[2017-10-09] MEDS: SODIUM CHLORIDE 0.9% FLUSH 10 ML FLUSH IV FLUSH SCH ×2 (09:38→20:36)
--- NOTE | 2017-10-09 13:00 | HHI.GIFU ---
Subjective Remarks Pt resting in bed. Admits loose stool in last few days. Eating well. Tender in upper quadrants (Amelia Greene SOLAR SALES REPRESENTATIVE AND ASSESSOR) Objective Vitals I&O Vital Signs Date Time Temp Pulse Resp B/P (MAP) Pulse Ox O2 Delivery O2 Flow Rate FiO2 10/09/17 09:55 82 10/09/17 08:00 98.4 82 17 148/67 (94) 93 10/09/17 07:49 90 10/09/17 04:20 99.9 91 18 124/63 (83) 95 10/09/17 00:55 100.5 97 20 137/72 (93) 93 10/08/17 20:00 98.4 92 22 160/74 (102) 96 10/08/17 14:55 97.0 83 18 157/89 (111) 99 I/O 10/08/17 10/08/17 10/08/17 10/09/17 10/09/17 10/09/17 07:00 15:00 23:00 07:00 15:00 23:00 Intake Total 200 ml 480 ml Output Total 75 ml Balance 200 ml 405 ml Intake Oral 480 ml Other 200 ml Emesis 75 ml # Voids 2 2 # Bowel Movements 1 0 Laboratory Laboratory Tests Test 10/08/17 22:00 10/09/17 07:30 Urine Color YELLOW Urine Turbidity CLEAR Urine pH 5.5 Urine Specific [place] 1.020 Urine Protein 30 Urine Glucose (UA) 1000 Urine Ketones NEG Urine Occult Blood NEG Urine Nitrite NEG Urine Bilirubin NEG Urine Urobilinogen 2.0 Urine Leukocyte Esterase MOD Urine RBC LESS THAN 1 Urine WBC 3 Urine Squamous Epithelial Cells 1 Urine Bacteria OCC Urine Hyaline Casts 10 Microscopic Urinalysis Comment CULT NOT INDICATED White Blood Count 3.3 Red Blood Count 2.88 Hemoglobin 9.5 Hematocrit 28.3 Mean Corpuscular Volume 98.0 Mean Corpuscular Hemoglobin 32.9 Mean Corpuscular Hemoglobin Concent 33.5 Red Cell Distribution Width 15.4 Platelet Count 153 Mean Platelet Volume 9.3 Prothrombin Time 11.5 Prothromb Time International Ratio 1.1 Activated Partial Thromboplast Time 25.7 Blood Urea Nitrogen 43 Creatinine 1.37 Random Glucose 482 Total Protein 6.6 Albumin 2.0 Calcium Level 8.4 Alkaline Phosphatase 246 Aspartate Amino Transf (AST/SGOT) 34 Alanine Aminotransferase (ALT/SGPT) 26 Total Bilirubin 0.8 Sodium Level 132 Potassium Level 5.4 Chloride Level 98 Carbon Dioxide Level 22.9 Anion Gap 11 Estimat Glomerular Filtration Rate 39 Imaging Last Impressions Abdomen/Pelvis CT 10/07/17 0000 Signed Impressions: Service Date/Time: Saturday, October 07, 2017 17:00 - CONCLUSION: Increased ascites. Mild possible proximal colonic wall thickening and mild nonspecific distention of small bowel and proximal colon. Yayo Miller MD Abdomen Ultrasound 10/06/17 0000 Signed Impressions: Service Date/Time: Friday, October 06, 2017 22:31 - CONCLUSION: 1. Moderate ascites is present Shaq Leal MD Physical Exam HEENT: PERRL; normocephalic; atraumatic; no jaundice. CHEST: CTA CARDIAC: RRR ABDOMEN: Soft, distended, upper quadrant TTP; bowel sounds are present in all four quadrants. EXTREMITIES: No clubbing, cyanosis, or edema. SKIN: Normal; no rash; no jaundice. SECURITY OPERATIONS ANALYST: No focal deficits; alert and oriented times three. (Amelia Greene) Assessment and Plan Plan ASSESSMENT - n/v, upper quadrant pain - onset 3 days ago. admits some constipation but had BM this morning and has had some relief. lipase 70. could be r/t ascites vs gastritis vs constipation. 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 US showed moderate ascites. She had a therapeutic paracentesis 09/18/17, 4600 cc fluid removed. 10/09/17 s /p EGD found esophageal varices, hiatal hernia, gastritis. n/v seems improved, pt eating well. now c/o loose stool. CT showed increased ascites, mild poss colon wall thickeing, non specific distention small bowel and proximal colon PLAN - KUB in am - await bx - when eating, low sodium diet - continue diuretics - continue lactulose - further recs to follow pt seen by myself and Dr Byrd and this note is written on his behalf (Amelia Greene) Plan Patient was seen and examined, agree with above note, we will repeat KUB tomorrow to rule out ileus, if continued to have tenderness patient will need a colonoscopy because of the thickening of the colon (Maria M Byrd MD) Amelia Greene Oct 09, 2017 13:00 Maria M Byrd MD Oct 09, 2017 18:05
--- NOTE | 2017-10-09 17:44 | HHI.PR ---
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 Patient seen and examined today. She status post paracentesis. States she is doing a lot better post paracentesis. Reports she has vomiting this morning and also elevated blood glucose. Patient's blood glucose is reported to be at 400s by staff. Patient states she has loose stools, described as pudding consistency. Patient is on lactulose. Discussed with patient possible vomiting may be related to increased girth secondary to ascites. States she will try to eat tonight and see how she feels. Denies chest pain, palpitations, dizziness, headaches. Denies fevers, chills, dysuria. Objective Vitals Vital Signs Date Time Temp Pulse Resp B/P (MAP) Pulse Ox O2 Delivery O2 Flow Rate FiO2 10/09/17 16:20 98.0 81 14 121/67 (85) 98 10/09/17 16:05 98.0 81 14 123/69 (87) 98 10/09/17 14:45 98.4 85 14 125/75 (92) 97 10/09/17 14:04 82 10/09/17 13:09 90 10/09/17 12:00 99.4 86 17 124/65 (84) 95 10/09/17 09:55 82 10/09/17 08:00 98.4 82 17 148/67 (94) 93 10/09/17 07:49 90 10/09/17 04:20 99.9 91 18 124/63 (83) 95 10/09/17 00:55 100.5 97 20 137/72 (93) 93 10/08/17 20:00 98.4 92 22 160/74 (102) 96 I/O 10/08/17 10/08/17 10/08/17 10/09/17 10/09/17 10/09/17 07:00 15:00 23:00 07:00 15:00 23:00 Intake Total 200 ml 930 ml Output Total 75 ml Balance 200 ml 855 ml Intake Oral 930 ml Other 200 ml Emesis 75 ml # Voids 2 5 # Bowel Movements 1 1 Result Diagram: 10/09/17 0730 10/09/17 0730 Imaging Last Impressions Abdomen/Pelvis CT 10/07/17 0000 Signed Impressions: Service Date/Time: Saturday, October 07, 2017 17:00 - CONCLUSION: Increased ascites. Mild possible proximal colonic wall thickening and mild nonspecific distention of small bowel and proximal colon. Yayo Miller MD Abdomen Ultrasound 10/06/17 0000 Signed Impressions: Service Date/Time: Friday, October 06, 2017 22:31 - CONCLUSION: 1. Moderate ascites is present Shaq Leal MD Objective Remarks GENERAL: This is a well-nourished, well-developed patient, in no apparent distress. SKIN: Warm and dry. Pale. HEENT: Normocephalic. Pupils equal round and reactive. Nose without bleeding. Airway patent. NECK: Trachea midline. CARDIOVASCULAR: Regular rate and rhythm without murmurs, gallops, or rubs. RESPIRATORY: Clear to auscultation. Breath sounds equal bilaterally. No wheezes , rales, or rhonchi. GASTROINTESTINAL: Abdomen soft. Bowel Sounds normoactive x4. Tenderness to palpation mid epigastric to right upper quadrant region. Minimal ascites MUSCULOSKELETAL: Extremities without clubbing, cyanosis. Bilat upper and lower ext +1 edema. NEUROLOGICAL: Awake and alert. Oriented to time, place, person. No focal neuro deficit. Moves all extremities. Normal speech. A/P Problem List: (1) Intractable nausea and vomiting ICD Code: R11.2 - Nausea with vomiting, unspecified Status: Acute (2) Kxtpa-hf-lwszxna kidney injury ICD Code: N17.9 - Acute kidney failure, unspecified; N18.9 - Chronic kidney disease, unspecified Status: Acute (3) Cirrhosis of liver with ascites ICD Code: K74.60 - Cirrhosis of liver with ascites Status: Acute Permanent Comment: Last Edited By: Brandt Coker on Oct 06, 2017 21:42 (4) Type 2 diabetes mellitus ICD Code: E11.9 - Type 2 diabetes mellitus without complications Status: Chronic (5) Autoimmune hepatitis ICD Code: K75.4 - Autoimmune hepatitis Status: Chronic (6) HTN (hypertension) ICD Code: I10 - Essential (primary) hypertension (7) Hyperkalemia ICD Code: E87.5 - Hyperkalemia Assessment and Plan 67-year-old female with a medical history significant for type 2 diabetes, 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 Intractable nausea vomiting Status post EGD 10/08/17 - Etiology is unclear however patient had history of liver cirrhosis, esophageal stricture, diabetes which can cause gastroparesis - Gastroenterology service consulted. Status post EGD found to have grade 1 esophageal varices, small hiatal hernia in the stomach and patchy erythema in the antrum with some nodularity which was biopsied. No gastric varices. The duodenum was normal. - Zofran as needed - Vomited today possibly related to increase in abdominal girth secondary to ascites versus gastroparesis. -Patient will attempt to try regular diet today and see how she does. If improved, will ask GI to clear patient in follow-up and outpatient. -Will start Reglan 5 mg before meals Acute on chronic kidney injury - worsened by dehydration, highly unlikely hepatorenal syndrome at this point - Avoid nephrotoxins. Monitor renal function. - Improving, CARPENTER 2.13 --> 1.63 --> 1.37 -Recheck labs tomorrow. Will restart Lasix and spironolactone depending on renal indices. Liver cirrhosis with ascites - Paracentesis previously done 09/18/17. Patient reports increasing fluids - Abdominal ultrasound showed moderate ascites present - Paracentesis done today. Improved SOB. DM 2 - Levemir 10units BID, restarted - BG elevated, diet has been changed to ADA from regular. - Sliding scale insulin with Accu-Cheks. Additional 5 units given today twice this patient's blood glucose has been in the 400 - Continue to monitor HTN - Continue amlodipine 2.5 mg daily, clonidine 0.1 mg twice daily, carotid lactone 25 mg daily - Monitor BP and adjust antihypertensives as needed. DVT prop SCDs Discharge Planning Plan to DC home tomorrow if clinically improved, cleared by GI. Problem Qualifiers (1) Dlynv-nc-pycftur kidney injury: Teresa Rosen Oct 09, 2017 17:44
[2017-10-09] MEDS: METOCLOPRAMIDE HCL SYRUP 10 MG/10 ML UDC PO SCH (20:31)
[2017-10-09] MEDS: LATANOPROST 0.005% OPHT SOLN 2.5 ML BTL EACH EYE SCH (20:32)
[2017-10-10 00:25] VITALS: BP 114/58; PULSE 72; RESP 16; TEMP 98.4; O2SAT 96
[2017-10-10 04:10] VITALS: BP 105/52; PULSE 65; RESP 16; TEMP 98.2; O2SAT 98
[2017-10-10] MEDS: LEVOTHYROXINE SODIUM 88 MCG TAB PO SCH (05:08)
[2017-10-10 08:00] VITALS: BP 121/67; PULSE 66; PULSE 69; RESP 18; TEMP 98.3; O2SAT 97
[2017-10-10] MEDS: SODIUM CHLORIDE 0.9% FLUSH 10 ML FLUSH IV FLUSH SCH ×2 (09:00→21:35)
[2017-10-10] MEDS: INSULIN DETEMIR 100 UNITS/ML VIAL SQ SCH ×2 (09:33→21:33)
[2017-10-10] MEDS: SERTRALINE HCL 50 MG TAB PO SCH (09:33)
[2017-10-10] MEDS: INSULIN ASPART SUPPLEMENTAL SCALE SQ SCH ×4 (09:33→21:34)
[2017-10-10] MEDS: amLODIPine BESYLATE 5 MG TAB PO SCH (09:34)
[2017-10-10] MEDS: SPIRONOLACTONE 25 MG TAB PO SCH (09:34)
[2017-10-10] MEDS: predniSONE 10 MG TAB PO SCH ×2 (09:34→10:07)
[2017-10-10] MEDS: CHOLECALCIFEROL (VIT D3) 1000 UNIT TAB PO SCH (09:34)
[2017-10-10] MEDS: cloNIDine HCL 0.1 MG TAB PO SCH ×2 (09:34→21:34)
[2017-10-10] MEDS: ASCORBIC ACID 500 MG TAB PO SCH (09:34)
[2017-10-10] MEDS: PANTOPRAZOLE SOD 40 MG DELAYED RELEASE TAB PO SCH (09:34)
[2017-10-10] MEDS: LACTULOSE SYRUP 20 GM/30 ML CUP PO SCH ×2 (09:34→21:34)
[2017-10-10] MEDS: METOCLOPRAMIDE HCL SYRUP 10 MG/10 ML UDC PO SCH ×4 (10:08→21:35)
[2017-10-10] MEDS: MERCAPTOPURINE 50 MG TAB PO SCH (10:11)
[2017-10-10 12:00] VITALS: BP 122/68; PULSE 66; RESP 18; TEMP 97.7; O2SAT 97
--- NOTE | 2017-10-10 12:19 | RADRPT ---
EXAM DATE/TIME: 10/09/2017 14:42 [facility] COMPARISON: US GUIDED ABD PARACENTESIS, September 18, 2017, 10:29. INDICATIONS : Ascites. MEDICAL HISTORY : Hypothyroidism. Gastroesophageal reflux disease. Hypercholesterolemia. Hypertension. Colitis. [place] a. Temporal arthritis. Mumps. Osteoarthritis. Liver disease. Diabetes. Measles. Cirrhosis. Hepatitis. SURGICAL HISTORY : Appendectomy. Hysterectomy. Liver biopsy. ENCOUNTER: Initial ACUITY: 3 weeks PAIN SCORE: 0/10 LOCATION: Right lower quadrant FLUID: Total volume of 5000 cc of clear, yellow fluid was removed. Fluid was discarded. Paracentesis was therapeutic only. Post procedure scanning reveals no hematoma or other complication. TECHNIQUE: 1. Ultrasound guidance for abdominal paracentesis. 2. Paracentesis. The risks, benefits, and alternatives to ultrasound guided paracentesis were explained to the patient in detail including the risk of bleeding and infection. Written and verbal informed consent was obt ained. With the patient on the ultrasound table, ultrasound imaging was used to select the most appropriate approach for paracentesis. Overlying skin was prepped and draped in the usual sterile fashion and wi th a local anesthetic, a dermatotomy was made with an 11 blade scalpel. A 6 Maced[place] Xug-K-ofpztrhc ca theter was introduced into the peritoneal cavity and fluid was collected. The patient tolerated the procedure well and left the ultrasound suite in stable condition. CONCLUSION: Uncomplicated ultrasound guided paracentesis. Marco Chaudhari MD FACR on October 10, 2017 at 12:18 Board Certified Radiologist. This report was verified electronically.
--- NOTE | 2017-10-10 12:46 | RADRPT ---
EXAM DATE/TIME: 10/09/2017 17:26 [facility] COMPARISON: CT ABDOMEN & PELVIS W CONTRAST, October 07, 2017, 17:00. INDICATIONS : Distention. MEDICAL HISTORY : Hypertension. Pancreatitis. Cirrhosis.Hepatitis diabetes,colitis SURGICAL HISTORY : Hysterectomy. ENCOUNTER: Subsequent ACUITY: 3 days PAIN SCORE: 0/10 LOCATION: Abdomen. FINDINGS: Supine view of the abdomen was performed. The abdominal bowel gas pattern is normal. No abnormal ma sses, calcifications, or organomegaly is seen. The osseous structures are unremarkable. CONCLUSION: Normal examination except some mild wall thickening of the transverse colon in the descending colon. Kane Norris MD on October 10, 2017 at 12:45 Board Certified Radiologist. This report was verified electronically.
--- NOTE | 2017-10-10 13:05 | HHI.GIFU ---
Subjective Remarks Pt resting in bed. c/o today of lower abd pain, worse in RLQ. she vomited yesterday but none today adn is tolerating diet. (Amelia Greene) Objective Vitals I&O Vital Signs Date Time Temp Pulse Resp B/P (MAP) Pulse Ox O2 Delivery O2 Flow Rate FiO2 10/10/17 12:00 97.7 66 18 122/68 (86) 97 10/10/17 08:00 98.3 66 18 121/67 (85) 97 10/10/17 04:10 98.2 65 16 105/52 (69) 98 10/10/17 00:25 98.4 72 16 114/58 (76) 96 10/09/17 19:50 98.1 74 17 125/69 (87) 98 10/09/17 19:00 77 10/09/17 18:30 86 10/09/17 17:57 80 10/09/17 16:20 98.0 81 14 121/67 (85) 98 10/09/17 16:05 98.0 81 14 123/69 (87) 98 10/09/17 14:45 98.4 85 14 125/75 (92) 97 10/09/17 14:04 82 10/09/17 13:09 90 I/O 10/09/17 10/09/17 10/09/17 10/10/17 10/10/17 10/10/17 07:00 15:00 23:00 07:00 15:00 23:00 Intake Total 930 ml 720 ml Output Total 75 ml Balance 855 ml 720 ml Intake Oral 930 ml 720 ml Emesis 75 ml # Voids 5 4 # Bowel Movements 1 0 Laboratory Laboratory Tests Test 10/06/17 18:00 10/07/17 05:54 10/08/17 22:00 10/09/17 07:30 Total Creatine Kinase 51 U/L Troponin I LESS THAN 0.02 NG/ML Lipase 70 U/L B-Hydroxybutyrate 0.15 MMOL/L Neutrophils (%) (Auto) 65.1 % Lymphocytes (%) (Auto) 22.1 % Monocytes (%) (Auto) 10.3 % Eosinophils (%) (Auto) 1.8 % Basophils (%) (Auto) 0.7 % Neutrophils # (Auto) 2.2 TH/MM3 Lymphocytes # (Auto) 0.7 TH/MM3 Monocytes # (Auto) 0.4 TH/MM3 Eosinophils # (Auto) 0.1 TH/MM3 Basophils # (Auto) 0.0 TH/MM3 CBC Comment DIFF FINAL Differential Comment Urine Color YELLOW Urine Turbidity CLEAR Urine pH 5.5 Urine Specific [place] 1.020 Urine Protein 30 mg/dL Urine Glucose (UA) 1000 mg/dL Urine Ketones NEG mg/dL Urine Occult Blood NEG Urine Nitrite NEG Urine Bilirubin NEG Urine Urobilinogen 2.0 MG/DL Urine Leukocyte Esterase MOD Urine RBC LESS THAN 1 /hpf Urine WBC 3 /hpf Urine Squamous Epithelial Cells 1 /hpf Urine Bacteria OCC /hpf Urine Hyaline Casts 10 /lpf Microscopic Urinalysis Comment CULT NOT INDICATED White Blood Count 3.3 TH/MM3 Red Blood Count 2.88 MIL/MM3 Hemoglobin 9.5 GM/DL Hematocrit 28.3 % Mean Corpuscular Volume 98.0 FL Mean Corpuscular Hemoglobin 32.9 PG Mean Corpuscular Hemoglobin Concent 33.5 % Red Cell Distribution Width 15.4 % Platelet Count 153 TH/MM3 Mean Platelet Volume 9.3 FL Prothrombin Time 11.5 SEC Prothromb Time International Ratio 1.1 RATIO Activated Partial Thromboplast Time 25.7 SEC Blood Urea Nitrogen 43 MG/DL Creatinine 1.37 MG/DL Random Glucose 482 MG/DL Total Protein 6.6 GM/DL Albumin 2.0 GM/DL Calcium Level 8.4 MG/DL Alkaline Phosphatase 246 U/L Aspartate Amino Transf (AST/SGOT) 34 U/L Alanine Aminotransferase (ALT/SGPT) 26 U/L Total Bilirubin 0.8 MG/DL Sodium Level 132 MEQ/L Potassium Level 5.4 MEQ/L Chloride Level 98 MEQ/L Carbon Dioxide Level 22.9 MEQ/L Anion Gap 11 MEQ/L Estimat Glomerular Filtration Rate 39 ML/MIN Imaging Last Impressions Cyst Biopsy Asp-Paracentesis US 10/09/17 0000 Signed Impressions: Service Date/Time: Monday, October 09, 2017 14:42 - CONCLUSION: Uncomplicated ultrasound guided paracentesis. Marco Chaudhari MD FACR Abdomen/Pelvis CT 10/07/17 0000 Signed Impressions: Service Date/Time: Saturday, October 07, 2017 17:00 - CONCLUSION: Increased ascites. Mild possible proximal colonic wall thickening and mild nonspecific distention of small bowel and proximal colon. Yayo Miller MD Abdomen Ultrasound 10/06/17 0000 Signed Impressions: Service Date/Time: Friday, October 06, 2017 22:31 - CONCLUSION: 1. Moderate ascites is present Shaq Leal MD Physical Exam HEENT: PERRL; normocephalic; atraumatic; no jaundice. CHEST: CTA CARDIAC: RRR ABDOMEN: Soft, distended, RLQ TTP; bowel sounds are present in all four quadrants. EXTREMITIES: No clubbing, cyanosis, or edema. SKIN: Normal; no rash; no jaundice. ENGINE INSPECTOR: No focal deficits; alert and oriented times three. (Amelia Greene) Assessment and Plan Plan ASSESSMENT - n/v, upper quadrant pain - onset 3 days ago. admits some constipation but had BM this morning and has had some relief. lipase 70. could be r/t ascites vs gastritis vs constipation. 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 US showed moderate ascites. She had a therapeutic paracentesis 09/18/17, 4600 cc fluid removed. 10/09/17 s /p EGD found esophageal varices, hiatal hernia, gastritis. n/v seems improved, pt eating well. now c/o loose stool. CT showed increased ascites, mild poss colon wall thickeing, non specific distention small bowel and proximal colon 10/10/17 KUB showed some mild wall thickening transverse and descending colon. pt has continued abd pain. vomited yesterday but none today and tolerating diet. EGD bx chemical gastropathy PLAN - consider colonoscopy, inpt vs outpt - await bx - when eating, low sodium diet - continue diuretics - continue lactulose - continue daily PPI pt see by myself and Dr Etienne and this note is on his behalf (Amelia Greene) Physician Comments Seen and examined with PRINCE, feeling better. ? colonoscopy next week due to anemia and lower abdominal discomfort. Pt. wants to do this inpt. (Cuong Etienne MD) Amelia Greene Oct 10, 2017 13:05 Cuong Etienne MD Oct 10, 2017 16:03
--- NOTE | 2017-10-10 13:11 | HHI.PR ---
Subjective Remarks Nausea and vomiting much improved today. The patient has tolerated that well. Denies chest pain or shortness of breath. Afebrile. Blood sugar noted to be severely elevated in the 400s range this a.m. Objective Vitals Vital Signs Date Time Temp Pulse Resp B/P (MAP) Pulse Ox O2 Delivery O2 Flow Rate FiO2 10/10/17 12:00 97.7 66 18 122/68 (86) 97 10/10/17 08:00 98.3 66 18 121/67 (85) 97 10/10/17 04:10 98.2 65 16 105/52 (69) 98 10/10/17 00:25 98.4 72 16 114/58 (76) 96 10/09/17 19:50 98.1 74 17 125/69 (87) 98 10/09/17 19:00 77 10/09/17 18:30 86 10/09/17 17:57 80 10/09/17 16:20 98.0 81 14 121/67 (85) 98 10/09/17 16:05 98.0 81 14 123/69 (87) 98 10/09/17 14:45 98.4 85 14 125/75 (92) 97 10/09/17 14:04 82 I/O 10/09/17 10/09/17 10/09/17 10/10/17 10/10/17 10/10/17 07:00 15:00 23:00 07:00 15:00 23:00 Intake Total 930 ml 720 ml Output Total 75 ml Balance 855 ml 720 ml Intake Oral 930 ml 720 ml Emesis 75 ml # Voids 5 4 # Bowel Movements 1 0 Result Diagram: 10/09/17 0730 10/09/17 0730 Imaging Last Impressions Cyst Biopsy Asp-Paracentesis US 10/09/17 0000 Signed Impressions: Service Date/Time: Monday, October 09, 2017 14:42 - CONCLUSION: Uncomplicated ultrasound guided paracentesis. Marco Chaudhari MD FACR Abdomen X-Ray 10/09/17 0000 Signed Impressions: Service Date/Time: Monday, October 09, 2017 17:26 - CONCLUSION: Normal examination except some mild wall thickening of the transverse colon in the descending colon. Kane Norris MD Abdomen/Pelvis CT 10/07/17 0000 Signed Impressions: Service Date/Time: Saturday, October 07, 2017 17:00 - CONCLUSION: Increased ascites. Mild possible proximal colonic wall thickening and mild nonspecific distention of small bowel and proximal colon. Yayo Miller MD Abdomen Ultrasound 10/06/17 0000 Signed Impressions: Service Date/Time: Friday, October 06, 2017 22:31 - CONCLUSION: 1. Moderate ascites is present Shaq Leal MD Objective Remarks GENERAL: This is a well-nourished, well-developed patient, in no apparent distress. SKIN: Warm and dry. Pale. HEENT: Normocephalic. Pupils equal round and reactive. Nose without bleeding. Airway patent. NECK: Trachea midline. CARDIOVASCULAR: Regular rate and rhythm without murmurs, gallops, or rubs. RESPIRATORY: Clear to auscultation. Breath sounds equal bilaterally. No wheezes , rales, or rhonchi. GASTROINTESTINAL: Abdomen soft. Bowel Sounds normoactive x4. Tenderness to palpation mid epigastric to right upper quadrant region. Minimal ascites MUSCULOSKELETAL: Extremities without clubbing, cyanosis. Bilat upper and lower ext +1 edema. NEUROLOGICAL: Awake and alert. Oriented to time, place, person. No focal neuro deficit. Moves all extremities. Normal speech. Procedures Status post EGD with biopsy. Patient with nodular gastritis and esophageal varices. Medications and IVs Current Medications Medications (Trade) Dose Ordered Sig/Miranda Route Start Time Stop Time Status Last Admin (Norvasc) 2.5 mg DAILY PO 10/07/17 09:00 10/10/17 09:34 (Vitamin D3) 1,000 units DAILY PO 10/07/17 09:00 10/10/17 09:34 (Catapres) 0.1 mg BID PO 10/07/17 09:00 10/10/17 09:34 (Xalatan 0.005% Opth Soln) 1 drop HS EACH EYE 10/07/17 21:00 10/09/17 20:32 (Synthroid) 88 mcg DAILY@0600 PO 10/07/17 06:00 10/10/17 05:08 (Purinethol) 50 mg DAILY PO 10/07/17 09:00 10/10/17 10:11 (Protonix) 40 mg DAILY PO 10/07/17 09:00 10/10/17 09:34 (Deltasone) 10 mg DAILY PO 10/07/17 09:00 10/10/17 10:07 (Zoloft) 50 mg DAILY PO 10/07/17 09:00 10/10/17 09:33 (Aldactone) 25 mg DAILY PO 10/07/17 09:00 10/10/17 09:34 (Vitamin C) 500 mg DAILY PO 10/07/17 09:00 10/10/17 09:34 (Lactulose Liq) 20 ml BID PO 10/07/17 09:00 10/10/17 09:34 (NS Flush) 2 ml UNSCH PRN IV FLUSH 10/06/17 21:45 (NS Flush) 2 ml BID IV FLUSH 10/07/17 09:00 10/10/17 09:00 (Tylenol) 650 mg Q4H PRN PO 10/06/17 21:45 (Zofran Inj) 4 mg Q6H PRN IVP 10/06/17 21:45 10/07/17 12:35 (Narcan Inj) 0.4 mg UNSCH PRN IV PUSH 10/06/17 21:45 (Milk Of Magnesia Liq) 30 ml Q12H PRN PO 10/06/17 21:45 (Senokot) 17.2 mg Q12H PRN PO 10/06/17 21:45 (Dulcolax Supp) 10 mg DAILY PRN RECTAL 10/06/17 21:45 (Lactulose Liq) 30 ml DAILY PRN PO 10/06/17 21:45 Lactated Ringer's 1,000 ml @ 30 mls/hr Q24H PRN IV 10/07/17 21:45 10/10/17 21:44 Sodium Chloride 500 ml @ 30 mls/hr [id number] PRN IV 10/07/17 21:45 10/10/17 21:44 (Lopressor) 25 mg DIE BAKER PRN PO 10/07/17 21:45 10/10/17 21:44 (Betadine 5% Antisepsis Kit) 1 applic DIE BAKER PRN EACH NARE 10/07/17 21:45 10/10/17 21:44 (Chlorhexidine 2% Cloth) 3 pack DIE BAKER PRN TOPICAL 10/07/17 21:45 10/10/17 21:44 (Reglan Liq) 5 mg ACHS PO 10/09/17 21:00 10/14/17 20:59 10/10/17 13:39 (D50w (Vial) Inj) 50 ml UNSCH PRN IV PUSH 10/10/17 13:15 (Glucagon Inj) 1 mg UNSCH PRN OTHER 10/10/17 13:15 (NovoLOG SUPPLEMENTAL SCALE) 1 ACHS SLIDING SCALE SQ 10/10/17 17:00 (Levemir Inj) 20 units Q12HR SQ 10/10/17 21:00 A/P Problem List: (1) Intractable nausea and vomiting ICD Code: R11.2 - Nausea with vomiting, unspecified Status: Acute (2) Emjru-xl-dwscrmg kidney injury ICD Code: N17.9 - Acute kidney failure, unspecified; N18.9 - Chronic kidney disease, unspecified Status: Acute (3) Cirrhosis of liver with ascites ICD Code: K74.60 - Cirrhosis of liver with ascites Status: Acute Permanent Comment: Last Edited By: Brandt Coker on Oct 06, 2017 21:42 (4) Type 2 diabetes mellitus ICD Code: E11.9 - Type 2 diabetes mellitus without complications Status: Chronic (5) Autoimmune hepatitis ICD Code: K75.4 - Autoimmune hepatitis Status: Chronic (6) HTN (hypertension) ICD Code: I10 - Essential (primary) hypertension (7) Hyperkalemia ICD Code: E87.5 - Hyperkalemia Assessment and Plan 67-year-old female with a medical history significant for type 2 diabetes, 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 Intractable nausea vomiting Status post EGD 10/08/17 - Etiology is unclear however patient had history of liver cirrhosis, esophageal stricture, diabetes which can cause gastroparesis - Gastroenterology service consulted. Status post EGD found to have grade 1 esophageal varices, small hiatal hernia in the stomach and patchy erythema in the antrum with some nodularity which was biopsied. No gastric varices. The duodenum was normal. - Zofran as needed - Vomited today possibly related to increase in abdominal girth secondary to ascites versus gastroparesis. - Reglan before meals - 10/10 Patient will have colonoscopy next week due to anemia and lower abdominal discomfort. Acute on chronic kidney injury - worsened by dehydration, highly unlikely hepatorenal syndrome at this point - Avoid nephrotoxins. Monitor renal function. 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 will order for AM. Continue to monitor BUN and creatinine, avoid nephrotoxins. Liver cirrhosis with ascites - Paracentesis previously done 09/18/17. Patient reports increasing fluids - Abdominal ultrasound showed moderate ascites present -Status post abdominal paracentesis. Shortness of breath much improved. DM 2 - Levemir 10units BID, restarted - BG elevated, diet has been changed to ADA from regular. - Sliding scale insulin with Accu-Cheks. Additional 5 units given today twice this patient's blood glucose has been in the 400 - Continue to monitor -3/3 blood sugar severely elevated in the 400s. Likely because the patient is eating well. I will increase the patient's Levemir to 26 units subcu twice daily and switch the SSI with insulin NovoLog from low-dose to high dose. Continue to monitor Accu-Cheks. HTN - Continue amlodipine 2.5 mg daily, clonidine 0.1 mg twice daily, carotid lactone 25 mg daily - Monitor BP and adjust antihypertensives as needed. 3/3 vital signs stable. Continue to monitor BP and manage with medications as detailed above. DVT prop SCDs Discharge Planning Continue to monitor on the medical floor. The patient to have colonoscopy as an inpatient next week. Problem Qualifiers (1) Udrds-gg-hhizmdd kidney injury: John Giron MD Oct 10, 2017 13:11
[2017-10-10] MEDS ORDERED: GLUCAGON 1 MG/ML VIAL OTHER PRN (13:15)
[2017-10-10 16:00] VITALS: BP 139/72; PULSE 71; RESP 18; TEMP 98.6; O2SAT 97
[2017-10-10 20:00] VITALS: BP_SYST 117; BP_SYST 174; BP_DIAS 64; BP_DIAS 77; PULSE 65; PULSE 77; RESP 15; RESP 16; TEMP 96.8; TEMP 97.2; O2SAT 97
[2017-10-10] MEDS: LATANOPROST 0.005% OPHT SOLN 2.5 ML BTL EACH EYE SCH (21:35)
[2017-10-11] VITALS: BP 115/65; PULSE 81; RESP 15; TEMP 98.1; O2SAT 96
[2017-10-11 04:00] VITALS: BP 100/50; PULSE 79; RESP 15; TEMP 98.6; O2SAT 95
[2017-10-11] MEDS: LEVOTHYROXINE SODIUM 88 MCG TAB PO SCH (06:53)
[2017-10-11 08:00] VITALS: BP 142/74; PULSE 79; RESP 18; TEMP 96.1; O2SAT 97
[2017-10-11] MEDS: LACTULOSE SYRUP 20 GM/30 ML CUP PO SCH ×2 (10:05→23:16)
[2017-10-11] MEDS: METOCLOPRAMIDE HCL SYRUP 10 MG/10 ML UDC PO SCH ×4 (10:05→23:16)
[2017-10-11] MEDS: ASCORBIC ACID 500 MG TAB PO SCH (10:06)
[2017-10-11] MEDS: SPIRONOLACTONE 25 MG TAB PO SCH (10:06)
[2017-10-11] MEDS: cloNIDine HCL 0.1 MG TAB PO SCH ×2 (10:06→21:00)
[2017-10-11] MEDS: PANTOPRAZOLE SOD 40 MG DELAYED RELEASE TAB PO SCH (10:06)
[2017-10-11] MEDS: amLODIPine BESYLATE 5 MG TAB PO SCH (10:06)
[2017-10-11] MEDS: predniSONE 10 MG TAB PO SCH (10:06)
[2017-10-11] MEDS: SERTRALINE HCL 50 MG TAB PO SCH (10:06)
[2017-10-11] MEDS: CHOLECALCIFEROL (VIT D3) 1000 UNIT TAB PO SCH (10:06)
[2017-10-11] MEDS: INSULIN ASPART SUPPLEMENTAL SCALE SQ SCH ×4 (10:07→23:14)
[2017-10-11] MEDS: SODIUM CHLORIDE 0.9% FLUSH 10 ML FLUSH IV FLUSH SCH ×2 (10:08→23:17)
[2017-10-11] MEDS: INSULIN DETEMIR 100 UNITS/ML VIAL SQ SCH ×2 (10:08→23:15)
[2017-10-11] MEDS: MERCAPTOPURINE 50 MG TAB PO SCH (10:11)
[2017-10-11 12:00] VITALS: BP 118/64; PULSE 73; RESP 18; TEMP 98.4; O2SAT 96
[2017-10-11] MEDS ORDERED: PEG (High)/E-LYTE SOLN 4000 ML BTL PO ONE (14:00)
--- NOTE | 2017-10-11 14:34 | HHI.GIFU ---
Subjective Remarks Resting in the bed Awake, feeling somewhat better, less bloating Denies any nausea vomiting diarrhea or constipation Afebrile (Geovanna Milian) Objective Vitals I&O Vital Signs Date Time Temp Pulse Resp B/P (MAP) Pulse Ox O2 Delivery O2 Flow Rate FiO2 10/11/17 12:00 98.4 73 18 118/64 (82) 96 10/11/17 08:00 96.1 79 18 142/74 (96) 97 10/11/17 04:00 98.6 79 15 100/50 (67) 95 10/11/17 00:00 98.1 81 15 115/65 (82) 96 10/10/17 20:00 96.8 77 15 117/64 (81) 97 10/10/17 16:00 98.6 71 18 139/72 (94) 97 I/O 10/10/17 10/10/17 10/10/17 10/11/17 10/11/17 10/11/17 07:00 15:00 23:00 07:00 15:00 23:00 Intake Total 720 ml 600 ml 800 ml Balance 720 ml 600 ml 800 ml Intake Oral 720 ml 600 ml 800 ml # Voids 4 3 2 0 # Bowel Movements 0 0 2 Imaging Last Impressions Cyst Biopsy Asp-Paracentesis US 10/09/17 0000 Signed Impressions: Service Date/Time: Monday, October 09, 2017 14:42 - CONCLUSION: Uncomplicated ultrasound guided paracentesis. Marco Chaudhari MD FACR Abdomen X-Ray 10/09/17 0000 Signed Impressions: Service Date/Time: Monday, October 09, 2017 17:26 - CONCLUSION: Normal examination except some mild wall thickening of the transverse colon in the descending colon. Kane Norris MD Abdomen/Pelvis CT 10/07/17 0000 Signed Impressions: Service Date/Time: Saturday, October 07, 2017 17:00 - CONCLUSION: Increased ascites. Mild possible proximal colonic wall thickening and mild nonspecific distention of small bowel and proximal colon. Yayo Miller MD Abdomen Ultrasound 10/06/17 0000 Signed Impressions: Service Date/Time: Friday, October 06, 2017 22:31 - CONCLUSION: 1. Moderate ascites is present Shaq Leal MD Physical Exam HEENT: PERRL; normocephalic; atraumatic; no jaundice. CHEST: CTA CARDIAC: RRR ABDOMEN: Soft, distended, RLQ TTP; bowel sounds are present in all four quadrants. EXTREMITIES: No clubbing, cyanosis, or edema. SKIN: Normal; no rash; no jaundice. 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 (Geovanna Milian) Assessment and Plan Plan ASSESSMENT - n/v, upper quadrant pain - onset 3 days ago. admits some constipation but had BM this morning and has had some relief. lipase 70. could be r/t ascites vs gastritis vs constipation. 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 US showed moderate ascites. She had a therapeutic paracentesis 09/18/17, 4600 cc fluid removed. Repeat paracentesis 10/09/2017 10/09/17 s /p EGD found esophageal varices, hiatal hernia, gastritis. n/v seems improved, pt eating well. now c/o loose stool. CT showed increased ascites, mild poss colon wall thickeing, non specific distention small bowel and proximal colon 10/10/17 KUB showed some mild wall thickening transverse and descending colon. pt has continued abd pain. vomited yesterday but none today and tolerating diet. EGD bx chemical gastropathy 10/11/17, patient does have some bloating, denies any symptoms of nausea vomiting diarrhea or constipation. Plan for colonoscopy in the morning with GoLYTELY prep. Discussed procedure and any questions with patient. Clear liquids this p.m. and for dinner. PLAN - Consent for colonoscopy in a.m - GoLYTELY prep - Continue Reglan by mouth - Continue Protonix - Zofran as needed for nausea - Diet change back to clear liquids for 10/11/17 pre-colonoscopy, patient ate breakfast and small lunch. - continue Aldactone - continue lactulose pt see by myself and Dr Etienne and this note is on his behalf (Geovanna Milian) Physician Comments Seen and examined with PRESTIDIGITATOR< cstill with some lower abdominal pain. Colonoscopy tomorrow. (Cuong Etienne MD) Geovanna Milian Oct 11, 2017 14:34 Cuong Etienne MD Oct 11, 2017 16:32
--- NOTE | 2017-10-11 14:36 | HHI.PR ---
Subjective Remarks Denies nausea, vomiting or abdominal pain Denies cp/sob. Objective Vitals Vital Signs Date Time Temp Pulse Resp B/P (MAP) Pulse Ox O2 Delivery O2 Flow Rate FiO2 10/11/17 12:00 98.4 73 18 118/64 (82) 96 10/11/17 08:00 96.1 79 18 142/74 (96) 97 10/11/17 04:00 98.6 79 15 100/50 (67) 95 10/11/17 00:00 98.1 81 15 115/65 (82) 96 10/10/17 20:00 96.8 77 15 117/64 (81) 97 10/10/17 16:00 98.6 71 18 139/72 (94) 97 I/O 10/10/17 10/10/17 10/10/17 10/11/17 10/11/17 10/11/17 07:00 15:00 23:00 07:00 15:00 23:00 Intake Total 720 ml 600 ml 800 ml 600 ml Balance 720 ml 600 ml 800 ml 600 ml Intake Oral 720 ml 600 ml 800 ml 600 ml # Voids 4 3 2 0 2 # Bowel Movements 0 0 2 0 Result Diagram: 10/09/17 0730 10/09/17 0730 Imaging Last Impressions Cyst Biopsy Asp-Paracentesis US 10/09/17 0000 Signed Impressions: Service Date/Time: Monday, October 09, 2017 14:42 - CONCLUSION: Uncomplicated ultrasound guided paracentesis. Marco Chaudhari MD FACR Abdomen X-Ray 10/09/17 0000 Signed Impressions: Service Date/Time: Monday, October 09, 2017 17:26 - CONCLUSION: Normal examination except some mild wall thickening of the transverse colon in the descending colon. Kane Norris MD Abdomen/Pelvis CT 10/07/17 0000 Signed Impressions: Service Date/Time: Saturday, October 07, 2017 17:00 - CONCLUSION: Increased ascites. Mild possible proximal colonic wall thickening and mild nonspecific distention of small bowel and proximal colon. Yayo Miller MD Abdomen Ultrasound 10/06/17 0000 Signed Impressions: Service Date/Time: Friday, October 06, 2017 22:31 - CONCLUSION: 1. Moderate ascites is present Shaq Leal MD Objective Remarks GENERAL: This is a well-nourished, well-developed patient, in no apparent distress. SKIN: Warm and dry. Pale. HEENT: Normocephalic. Pupils equal round and reactive. Nose without bleeding. Airway patent. NECK: Trachea midline. CARDIOVASCULAR: Regular rate and rhythm without murmurs, gallops, or rubs. RESPIRATORY: Clear to auscultation. Breath sounds equal bilaterally. No wheezes , rales, or rhonchi. GASTROINTESTINAL: Abdomen soft. Bowel Sounds normoactive x4. Tenderness to palpation mid epigastric to right upper quadrant region. Minimal ascites MUSCULOSKELETAL: Extremities without clubbing, cyanosis. Bilat upper and lower ext +1 edema. NEUROLOGICAL: Awake and alert. Oriented to time, place, person. No focal neuro deficit. Moves all extremities. Normal speech. Procedures Status post EGD with biopsy. Patient with nodular gastritis and esophageal varices. Medications and IVs Current Medications Medications (Trade) Dose Ordered Sig/Miranda Route Start Time Stop Time Status Last Admin (Norvasc) 2.5 mg DAILY PO 10/07/17 09:00 10/11/17 10:06 (Vitamin D3) 1,000 units DAILY PO 10/07/17 09:00 10/11/17 10:06 (Catapres) 0.1 mg BID PO 10/07/17 09:00 10/11/17 10:06 (Xalatan 0.005% Opth Soln) 1 drop HS EACH EYE 10/07/17 21:00 10/10/17 21:35 (Synthroid) 88 mcg DAILY@0600 PO 10/07/17 06:00 10/11/17 06:53 (Purinethol) 50 mg DAILY PO 10/07/17 09:00 10/11/17 10:11 (Protonix) 40 mg DAILY PO 10/07/17 09:00 10/11/17 10:06 (Deltasone) 10 mg DAILY PO 10/07/17 09:00 10/11/17 10:06 (Zoloft) 50 mg DAILY PO 10/07/17 09:00 10/11/17 10:06 (Aldactone) 25 mg DAILY PO 10/07/17 09:00 10/11/17 10:06 (Vitamin C) 500 mg DAILY PO 10/07/17 09:00 10/11/17 10:06 (Lactulose Liq) 20 ml BID PO 10/07/17 09:00 10/11/17 10:05 (NS Flush) 2 ml UNSCH PRN IV FLUSH 10/06/17 21:45 (NS Flush) 2 ml BID IV FLUSH 10/07/17 09:00 10/11/17 10:08 (Tylenol) 650 mg Q4H PRN PO 10/06/17 21:45 (Zofran Inj) 4 mg Q6H PRN IVP 10/06/17 21:45 10/07/17 12:35 (Narcan Inj) 0.4 mg UNSCH PRN IV PUSH 10/06/17 21:45 (Milk Of Magnesia Liq) 30 ml Q12H PRN PO 10/06/17 21:45 (Senokot) 17.2 mg Q12H PRN PO 10/06/17 21:45 (Dulcolax Supp) 10 mg DAILY PRN RECTAL 10/06/17 21:45 (Lactulose Liq) 30 ml DAILY PRN PO 10/06/17 21:45 (Reglan Liq) 5 mg ACHS PO 10/09/17 21:00 10/14/17 20:59 10/11/17 13:17 (D50w (Vial) Inj) 50 ml UNSCH PRN IV PUSH 10/10/17 13:15 (Glucagon Inj) 1 mg UNSCH PRN OTHER 10/10/17 13:15 (NovoLOG SUPPLEMENTAL SCALE) 1 ACHS SLIDING SCALE SQ 10/10/17 17:00 10/11/17 13:18 (Levemir Inj) 20 units Q12HR SQ 10/10/17 21:00 10/11/17 10:08 A/P Problem List: (1) Intractable nausea and vomiting ICD Code: R11.2 - Nausea with vomiting, unspecified Status: Acute (2) Mjehq-co-quurftu kidney injury ICD Code: N17.9 - Acute kidney failure, unspecified; N18.9 - Chronic kidney disease, unspecified Status: Acute (3) Cirrhosis of liver with ascites ICD Code: K74.60 - Cirrhosis of liver with ascites Status: Acute Permanent Comment: Last Edited By: Brandt Coker on Oct 06, 2017 21:42 (4) Type 2 diabetes mellitus ICD Code: E11.9 - Type 2 diabetes mellitus without complications Status: Chronic (5) Autoimmune hepatitis ICD Code: K75.4 - Autoimmune hepatitis Status: Chronic (6) HTN (hypertension) ICD Code: I10 - Essential (primary) hypertension (7) Hyperkalemia ICD Code: E87.5 - Hyperkalemia Assessment and Plan 67-year-old female with a medical history significant for type 2 diabetes, 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 Intractable nausea vomiting Status post EGD 10/08/17 - Etiology is unclear however patient had history of liver cirrhosis, esophageal stricture, diabetes which can cause gastroparesis - Gastroenterology service consulted. Status post EGD found to have grade 1 esophageal varices, small hiatal hernia in the stomach and patchy erythema in the antrum with some nodularity which was biopsied. No gastric varices. The duodenum was normal. - Zofran as needed - Vomited today possibly related to increase in abdominal girth secondary to ascites versus gastroparesis. - Reglan before meals - Patient will have colonoscopy tomorrow due to anemia and lower abdominal discomfort. Acute on chronic kidney injury - worsened by dehydration, highly unlikely hepatorenal syndrome at this point - Avoid nephrotoxins. Monitor renal function. 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 Liver cirrhosis with ascites - Paracentesis previously done 09/18/17. Patient reports increasing fluids - Abdominal ultrasound showed moderate ascites present -Status post abdominal paracentesis. Shortness of breath much improved. DM 2 - Levemir 10units BID, restarted - BG elevated, diet has been changed to ADA from regular. - Sliding scale insulin with Accu-Cheks. Additional 5 units given today twice this patient's blood glucose has been in the 400 - Continue to monitor -3/3 blood sugar severely elevated in the 400s. Likely because the patient is eating well. I will increase the patient's Levemir to 26 units subcu twice daily and switch the SSI with insulin NovoLog from low-dose to high dose. Continue to monitor Accu-Cheks. - Blood sugar control improving. Continue Levemir 26 units subcutaneously twice a day. Continue high-dose insulin NovoLog sliding scale. HTN - Continue amlodipine 2.5 mg daily, clonidine 0.1 mg twice daily, carotid lactone 25 mg daily - Monitor BP and adjust antihypertensives as needed. 3/3 vital signs stable. Continue to monitor BP and manage with medications as detailed above. DVT prop SCDs Discharge Planning Continue to monitor on the medical floor. The patient to have colonoscopy as an inpatient next week. Problem Qualifiers (1) Uxmmk-zm-vopgsex kidney injury: John Giron MD Oct 11, 2017 14:36
[2017-10-11 16:00] VITALS: BP 115/69; PULSE 79; RESP 18; TEMP 99.2; O2SAT 96
[2017-10-11] MEDS: ONDANSETRON HCL 4 MG/2 ML VIAL IVP PRN (16:28)
[2017-10-11 20:00] VITALS: BP 127/72; PULSE 84; RESP 15; TEMP 98.1; O2SAT 96
[2017-10-11] MEDS: LATANOPROST 0.005% OPHT SOLN 2.5 ML BTL EACH EYE SCH (23:18)
[2017-10-11] MEDS ORDERED: SODIUM CHLORID 0.9% 500 ML IV PRN (23:30)
[2017-10-11] MEDS ORDERED: POVIDONE IODINE 5% (ANTISEPSIS KIT) 4 APPLICATIONS EACH NARE PRN (23:30)
[2017-10-11] MEDS ORDERED: LACTATED RINGER'S 1000 ML IV PRN (23:30)
[2017-10-11] MEDS ORDERED: CHLORHEXIDINE GLUCONATE 2 % 1 PACK (2 CLOTHS) TOPICAL PRN (23:30)
[2017-10-11] MEDS ORDERED: METOPROLOL TARTRATE 25 MG TAB PO PRN (23:30)
[2017-10-12 04:00] VITALS: BP 160/80; PULSE 95; RESP 15; TEMP 98.2; O2SAT 95
[2017-10-12] MEDS: DEXTROSE 50% IN WATER 50 ML VIAL(D50) IV PUSH PRN ×2 (05:09→10:12)
[2017-10-12] MEDS: LEVOTHYROXINE SODIUM 88 MCG TAB PO SCH (06:00)
[2017-10-12 08:00] VITALS: BP 126/67; PULSE 84; RESP 17; TEMP 97.8; O2SAT 95
[2017-10-12] MEDS: INSULIN ASPART SUPPLEMENTAL SCALE SQ SCH ×2 (08:00→13:18)
[2017-10-12] MEDS: SERTRALINE HCL 50 MG TAB PO SCH (08:34)
[2017-10-12] MEDS: PANTOPRAZOLE SOD 40 MG DELAYED RELEASE TAB PO SCH (08:34)
[2017-10-12] MEDS: CHOLECALCIFEROL (VIT D3) 1000 UNIT TAB PO SCH (08:35)
[2017-10-12] MEDS: LACTULOSE SYRUP 20 GM/30 ML CUP PO SCH (08:35)
[2017-10-12] MEDS: ASCORBIC ACID 500 MG TAB PO SCH (08:35)
[2017-10-12] MEDS: cloNIDine HCL 0.1 MG TAB PO SCH (08:35)
[2017-10-12] MEDS: amLODIPine BESYLATE 5 MG TAB PO SCH (08:35)
[2017-10-12] MEDS: SPIRONOLACTONE 25 MG TAB PO SCH (08:35)
[2017-10-12] MEDS: predniSONE 10 MG TAB PO SCH (08:35)
[2017-10-12] MEDS: METOCLOPRAMIDE HCL SYRUP 10 MG/10 ML UDC PO SCH ×2 (08:36→13:17)
[2017-10-12] MEDS: MERCAPTOPURINE 50 MG TAB PO SCH (08:45)
[2017-10-12] MEDS: INSULIN DETEMIR 100 UNITS/ML VIAL SQ SCH (09:00)
--- NOTE | 2017-10-12 09:43 | GIPROC ---
[facility] [address] [facility]. [facility], [address] COLONOSCOPY PROCEDURE REPORT EXAM DATE: 10/12/2017 PATIENT NAME: Shaista Mooney MR #: [id number] BIRTHDATE: 1950 ENDOSCOPIST: Marline Higgins MD ORDER #: [id number] [employer]: Irma Gaona and Aranza Montemayor STATUS: inpatient INDICATIONS: The patient is a 67 yr old female here for a colonoscopy due to constipation PROCEDURE PERFORMED: Colonoscopy, diagnostic MEDICATIONS: None and Per Anesthesia. PREP QUALITY: poor PREP TYPE:GoLytely ESTIMATED BLOOD LOSS: None CONSENT: The patient understands the risks and benefits of the procedure and understands that these risks include, but are not limited to: sedation, allergic reaction, infection, perforation and/or bleeding. Alternative means of evaluation and treatment include, among others: physical exam, x-rays, and/or surgical intervention. The patient elects to proceed with this endoscopic procedure. medical equipment was checked for proper function. Hand hygiene and appropriate measures for infection prevention was taken. After the risks, benefits and alternatives of the procedure were thoroughly explained, Informed consent was verified, confirmed and timeout was successfully executed by the treatment team. A digital exam revealed no abnormalities of the rectum The Pentax [id number] endoscope was introduced through the anus and advanced to the cecum, which was identified by both the appendix and ileocecal valve. The instrument was then slowly withdrawn as the colon was fully examined. COLON FINDINGS: Diverticulum was found in the sigmoid colon. The opening was medium sized. Retroflexed views revealed no abnormalities The scope was then completely withdrawn from the patient and the procedure terminated. PROCEDURE WITHDRAWAL TIME:10minutes ADVERSE EVENTS: There were no complications. IMPRESSIONS: 1. Diverticulum in the sigmoid colon 2. Retroflexed views revealed no abnormalitie RECOMMENDATIONS: High fiber diet RECALL: Return 5 years Colonoscopy Marline Higgins MD eSigned: Marline Higgins MD 10/12/2017 9:42 AM cc:
[2017-10-12 11:30] VITALS: BP 147/73; PULSE 76; RESP 18; TEMP 96.3; O2SAT 100
[2017-10-12] MEDS ORDERED: PROPOFOL 200 MG/20 ML AMP IV ONE (12:00)
[2017-10-12] MEDS ORDERED: PHENYLEPH/NS 1000 MCG/10 ML SYR IV ONE (12:00)
[2017-10-12] MEDS ORDERED: LIDOCAINE HCL 1% PF 5 ML SYRINGE OTHER ONE (12:00)
[2017-10-12] MEDS ORDERED: DO NOT ADM ANY ANTICOAGULANT DRUGS PRN (13:00)
--- NOTE | 2017-10-12 13:05 | HHI.PR ---
Subjective Remarks back from colonoscopy- tolerated procedure well now eating lunch- no nausea or vomiting, no abdominal pain ear;ier BS- 57- was NPO overnight for procedure now taking po well good hypoglycemic awareness Objective Vitals Vital Signs Date Time Temp Pulse Resp B/P (MAP) Pulse Ox O2 Delivery O2 Flow Rate FiO2 10/12/17 11:30 96.3 76 18 147/73 (97) 100 10/12/17 10:40 97.6 65 20 125/76 (92) 96 Nasal Cannula 2 10/12/17 10:30 66 20 135/76 (95) 96 Nasal Cannula 2 10/12/17 10:15 67 20 95/64 (74) 96 Nasal Cannula 2 10/12/17 10:01 97.6 67 20 90/51 (64) 95 Nasal Cannula 2 10/12/17 09:53 86/48 (61) 10/12/17 09:50 67 16 71/42 (52) 97 10/12/17 08:00 97.8 84 17 126/67 (86) 95 10/12/17 04:00 98.2 95 15 160/80 (106) 95 10/11/17 20:00 98.1 84 15 127/72 (90) 96 10/11/17 16:00 99.2 79 18 115/69 (84) 96 I/O 10/11/17 10/11/17 10/11/17 10/12/17 10/12/17 10/12/17 07:00 15:00 23:00 07:00 15:00 23:00 Intake Total 600 ml 480 ml 800 ml Balance 600 ml 480 ml 800 ml Intake Oral 600 ml 480 ml IV Total 500 ml Other 300 ml # Voids 0 2 2 # Bowel Movements 0 2 Result Diagram: 10/09/1730 10/09/17 0730 Objective Remarks Last Impressions Cyst Biopsy Asp-Paracentesis US 10/09/17 0000 Signed Impressions: Service Date/Time: Monday, October 09, 2017 14:42 - CONCLUSION: Uncomplicated ultrasound guided paracentesis. Marco Chaudhari MD FACR Abdomen X-Ray 10/09/17 0000 Signed Impressions: Service Date/Time: Monday, October 09, 2017 17:26 - CONCLUSION: Normal examination except some mild wall thickening of the transverse colon in the descending colon. Kane Norris MD Abdomen/Pelvis CT 10/07/17 0000 Signed Impressions: Service Date/Time: Saturday, October 07, 2017 17:00 - CONCLUSION: Increased ascites. Mild possible proximal colonic wall thickening and mild nonspecific distention of small bowel and proximal colon. Yayo Miller MD Abdomen Ultrasound 10/06/17 0000 Signed Impressions: Service Date/Time: Friday, October 06, 2017 22:31 - CONCLUSION: 1. Moderate ascites is present Shaq Leal MD Procedures Status post EGD with biopsy. Patient with nodular gastritis and esophageal varices. 10/12- colonoscopy- diverticuloses A/P Problem List: (1) Intractable nausea and vomiting ICD Code: R11.2 - Nausea with vomiting, unspecified Status: Resolved (2) Eyffp-ra-xwjiesj kidney injury ICD Code: N17.9 - Acute kidney failure, unspecified; N18.9 - Chronic kidney disease, unspecified Status: Acute (3) Cirrhosis of liver with ascites ICD Code: K74.60 - Cirrhosis of liver with ascites Status: Chronic Permanent Comment: Last Edited By: Brandt Coker on Oct 06, 2017 21:42 (4) Type 2 diabetes mellitus ICD Code: E11.9 - Type 2 diabetes mellitus without complications Status: Chronic (5) Autoimmune hepatitis ICD Code: K75.4 - Autoimmune hepatitis Status: Chronic (6) HTN (hypertension) ICD Code: I10 - Essential (primary) hypertension (7) Hyperkalemia ICD Code: E87.5 - Hyperkalemia Assessment and Plan 67-year-old female with a medical history significant for type 2 diabetes, 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 Intractable nausea vomiting- Resolved Status post EGD 10/08/17 - Etiology is unclear however patient had history of liver cirrhosis, esophageal stricture, diabetes which can cause gastroparesis - Gastroenterology service consulted. Status post EGD found to have grade 1 esophageal varices, small hiatal hernia in the stomach and patchy erythema in the antrum with some nodularity which was biopsied. No gastric varices. The duodenum was normal. - Zofran as needed Acute on chronic kidney injury- creatinine improved - worsened by dehydration, highly unlikely hepatorenal syndrome at this point - Avoid nephrotoxins. Monitor renal function. 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 -OP ff up Liver cirrhosis with ascites - Paracentesis previously done 09/18/17. Patient reports increasing fluids - Abdominal ultrasound showed moderate ascites present -Status post abdominal paracentesis. Shortness of breath much improved. DM 2 inasulin requiring- per patient even as OP- erratic- per patient last a1C was around 8 Hypoglycemia- earlier due to NPO for procedure- now good- taking po well- post colonoscopy - Levemir 10units BID, restarted - BG elevated, diet has been changed to ADA from regular. - Sliding scale insulin with Accu-Cheks. - her Levemer was increased here - Blood sugar control improving. Continue Levemir 26 units subcutaneously twice a day. Continue high-dose insulin NovoLog sliding scale. 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 3/3 vital signs stable. Continue to monitor BP and manage with medications as detailed above. History of right temporal arteritis - continue on Prednisone 10 mg daily -OP ff up with her neurologist- Dr. Clrak - per patient - plan was to eventually taper off dc home today OP ff up with PCP OP ff up with naval science teacher- Dr. Haque's office OP ff up with GI- dr. olson Problem Qualifiers (1) Hbsjx-ql-xqhamch kidney injury: Anamaria Loomis MD Oct 12, 2017 13:05
[2017-10-12] MEDS: SODIUM CHLORIDE 0.9% FLUSH 10 ML FLUSH IV FLUSH SCH (13:19)
--- NOTE | 2017-10-12 13:29 | HHI.DS ---
Discharge Summary Admission Date Oct 06, 2017 at 19:45 Discharge Date: Oct 12, 2017 Admitting Diagnosis intractable nausea vomiting, acute on chronic kidney injury, DM, aut (1) Intractable nausea and vomiting ICD Code: R11.2 - Nausea with vomiting, unspecified Status: Resolved (2) Wqneh-va-arvtpou kidney injury ICD Code: N17.9 - Acute kidney failure, unspecified; N18.9 - Chronic kidney disease, unspecified Status: Acute (3) Cirrhosis of liver with ascites ICD Code: K74.60 - Cirrhosis of liver with ascites Status: Chronic (4) Type 2 diabetes mellitus ICD Code: E11.9 - Type 2 diabetes mellitus without complications Status: Chronic (5) Autoimmune hepatitis ICD Code: K75.4 - Autoimmune hepatitis Status: Chronic (6) HTN (hypertension) ICD Code: I10 - Essential (primary) hypertension Diagnosis: Secondary (7) Hyperkalemia ICD Code: E87.5 - Hyperkalemia Diagnosis: Secondary Procedures Status post EGD with biopsy. Patient with nodular gastritis and esophageal varices. 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 She reports she has not been able to eat anything. She is able to take some sips of liquids but has been unable to hold anything down. She denies any abdominal pain at rest but reports midepigastric discomfort with retching. She denies any hematemesis or diarrhea. She reports her blood sugars has been uncontrolled at home which she believes is the cause of her intractable nausea and vomiting. She denies any new changes to her medications. She is chronically on a low dose of steroid. She had a therapeutic paracentesis a couple weeks ago but reports her abdomen is increasingly distended again. Workup in the emergency room revealed acute on chronic renal failure and hyperkalemia. CBC/BMP: 10/09/17 0730 10/09/17 0730 Imaging Last Impressions Cyst Biopsy Asp-Paracentesis US 10/09/17 0000 Signed Impressions: Service Date/Time: Monday, October 09, 2017 14:42 - CONCLUSION: Uncomplicated ultrasound guided paracentesis. Marco Chaudhari MD FACR Abdomen X-Ray 10/09/17 0000 Signed Impressions: Service Date/Time: Monday, October 09, 2017 17:26 - CONCLUSION: Normal examination except some mild wall thickening of the transverse colon in the descending colon. Kane Norris MD Abdomen/Pelvis CT 10/07/17 0000 Signed Impressions: Service Date/Time: Saturday, October 07, 2017 17:00 - CONCLUSION: Increased ascites. Mild possible proximal colonic wall thickening and mild nonspecific distention of small bowel and proximal colon. Yayo Miller MD Abdomen Ultrasound 10/06/17 0000 Signed Impressions: Service Date/Time: Friday, October 06, 2017 22:31 - CONCLUSION: 1. Moderate ascites is present Shaq Leal MD PE at Discharge Last Impressions Cyst Biopsy Asp-Paracentesis US 10/09/17 0000 Signed Impressions: Service Date/Time: Monday, October 09, 2017 14:42 - CONCLUSION: Uncomplicated ultrasound guided paracentesis. Marco Chaudhari MD FACR Abdomen X-Ray 10/09/17 0000 Signed Impressions: Service Date/Time: Monday, October 09, 2017 17:26 - CONCLUSION: Normal examination except some mild wall thickening of the transverse colon in the descending colon. Kane Norris MD Abdomen/Pelvis CT 10/07/17 0000 Signed Impressions: Service Date/Time: Saturday, October 07, 2017 17:00 - CONCLUSION: Increased ascites. Mild possible proximal colonic wall thickening and mild nonspecific distention of small bowel and proximal colon. Yayo Miller MD Abdomen Ultrasound 10/06/17 0000 Signed Impressions: Service Date/Time: Friday, October 06, 2017 22:31 - CONCLUSION: 1. Moderate ascites is present Shaq Leal MD Pt update on day of discharge awake and alert. 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 Intractable nausea vomiting Status post EGD 10/08/17 - Etiology is unclear however patient had history of liver cirrhosis, esophageal stricture, diabetes which can cause gastroparesis - Gastroenterology service consulted. Status post EGD found to have grade 1 esophageal varices, small hiatal hernia in the stomach and patchy erythema in the antrum with some nodularity which was biopsied. No gastric varices. The duodenum was normal. - Zofran as needed - Vomited today possibly related to increase in abdominal girth secondary to ascites versus gastroparesis. - Reglan before meals - Patient will have colonoscopy tomorrow due to anemia and lower abdominal discomfort. Acute on chronic kidney injury - worsened by dehydration, highly unlikely hepatorenal syndrome at this point - Avoid nephrotoxins. Monitor renal function. 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 Liver cirrhosis with ascites - Paracentesis previously done 09/18/17. Patient reports increasing fluids - Abdominal ultrasound showed moderate ascites present -Status post abdominal paracentesis. Shortness of breath much improved. DM 2 - Levemir 10units BID, restarted - BG elevated, diet has been changed to ADA from regular. - Sliding scale insulin with Accu-Cheks. Additional 5 units given today twice this patient's blood glucose has been in the 400 - Continue to monitor -3/3 blood sugar severely elevated in the 400s. Likely because the patient is eating well. I will increase the patient's Levemir to 26 units subcu twice daily and switch the SSI with insulin NovoLog from low-dose to high dose. Continue to monitor Accu-Cheks. - Blood sugar control improving. Continue Levemir 26 units subcutaneously twice a day. Continue high-dose insulin NovoLog sliding scale. HTN - Continue amlodipine 2.5 mg daily, clonidine 0.1 mg twice daily, carotid lactone 25 mg daily - Monitor BP and adjust antihypertensives as needed. 3/3 vital signs stable. Continue to monitor BP and manage with medications as detailed above. History of right temporal arteritis -on chronic steroids- OP ff up with her neurologist- Dr. Clark Pt Condition on Discharge: Stable Discharge Disposition: Discharge Home Discharge Time: > 30 minutes Discharge Instructions DIET: Follow Instructions for: Heart Healthy Diet, Diabetic Diet, High Fiber Diet Speech Therapy-Diet Recommends: Regular Activities you can perform: Weight Bearing as Fernando Follow up Referrals: Endocrinology - 3-[address] Haque Gastroenterology - 4 Weeks with uCong Etienne MD PCP Follow-up - 3-5 Days with Rosie Bruner Orders: COMP MET PROF (CMP) - 10/14/17 Continued Medications: Amlodipine (Amlodipine) 2.5 Mg Tab 2.5 MG PO DAILY for Blood Pressure Management, #30 TAB 0 Refills Ascorbic Acid (C-500) 500 Mg Tab.chew 500 MG PO DAILY for Nutritional Supplement Cholecalciferol (Vitamin D3) 1,000 Unit Tab 1000 UNITS PO DAILY for Nutritional Supplement, #1 BOTTLE 0 Refills Clonidine (Clonidine) 0.1 Mg Tab 0.1 MG PO BID for Blood Pressure Management, #60 TAB 0 Refills Insulin Aspart Inj (Novolog Inj) 1,000 Unit/10 Ml Vial 0 SQ DIRECTED for Blood Sugar Management, #10 ML 0 Refills Sliding Scale as directed. Insulin Detemir Inj (Levemir Inj) 1,000 unit/ 10 ML Vial 20 UNITS SQ BID for Blood Sugar Management, VIAL 0 Refills Do not mix with any other Insulin. Lactulose (Encephalopathy) Liq (Enulose Liq) 10 Gm/15 Ml Soln 20 GM PO BID Latanoprost Opth Drops (Xalatan Opth Drops) 0.005% Drops 1 DROP EACH EYE HS for Glaucoma, #2.5 ML 0 Refills Levothyroxine (Levothyroxine) 88 Mcg Tab 88 MCG PO DAILY for Thyroid, #30 TAB 0 Refills Mercaptopurine (Mercaptopurine) 50 Mg Tab 50 MG PO DAILY for Chemotherapy Management, TAB 0 Refills Pantoprazole (Pantoprazole) 40 Mg Tab 40 MG PO DAILY for gastric protection, #30 TAB Prednisone (Prednisone) 10 Mg Tab 10 MG PO DAILY for inflammation for 30 Days, #30 TAB Sertraline (Zoloft) 50 Mg Tab 50 MG PO DAILY, #90 TAB 1 Refill Spironolactone (Spironolactone) 25 Mg Tab 25 MG PO DAILY for ascites, #30 TAB 0 Refills Anamaria Loomis MD Oct 12, 2017 13:29
[2017-10-12 14:24] LABS: AUTOMATED NEUTROPHIL # 4.4 TH/MM3 (1.8-7.7); BASOPHIL % 0.4 % (0.0-2.0); EOSINOPHIL % 0.3 % (0.0-4.0); HEMATOCRIT 29.6 % (35.0-46.0); HEMOGLOBIN 10.1 GM/DL (11.6-15.3); LYMPH % 7.5 % (9.0-44.0); LYMPHOCYTE # 0.4 TH/MM3 (1.0-4.8); MEAN PLATELET VOLUME 9.6 FL (7.0-11.0); MONO % 6.8 % (0.0-8.0); MONOCYTE # 0.4 TH/MM3 (0-0.9); PLATELET COUNT 192 TH/MM3 (150-450); RED BLOOD COUNT 3.05 MIL/MM3 (4.00-5.30); RED CELL DISTRIBUTION WIDTH 15.4 % (11.6-17.2); WHITE BLOOD COUNT 5.2 TH/MM3 (4.0-11.0)
[2017-10-12 14:41] LABS: BICARBONATE 24.5 MEQ/L (21.0-32.0); CALCIUM 8.2 MG/DL (8.5-10.1); CREATININE 1.23 MG/DL (0.50-1.00); MAGNESIUM 1.7 MG/DL (1.5-2.5); PHOSPHORUS 2.9 MG/DL (2.5-4.9)
[2017-10-12 14:45] LABS: OVALOCYTES 1+ (NORMAL)
[2017-10-12 16:00] VITALS: BP 136/78; PULSE 83; RESP 17; TEMP 97.4; O2SAT 99
== END 2017-10-12 16:38 | disposition home or self-care (01) | DRG 683 ==
LOC: NEPE 16:19 → NEDA 19:45 → NEPHCDU 22:44 → N06B 10-08 10:45
PROVIDERS: ADMIT Internal Medicine; ATTEND Internal Medicine
PROC: 0DB78ZX Excision of Stomach, Pylorus, Via Natural or Artificial Opening Endoscopic, Diagnostic (ICD-10-PCS; principal; 2017-10-08 11:00)
PROC: 0W9G3ZZ Drainage of Peritoneal Cavity, Percutaneous Approach (ICD-10-PCS; 2017-10-10)
PROC: 0DJD8ZZ Inspection of Lower Intestinal Tract, Via Natural or Artificial Opening Endoscopic (ICD-10-PCS; 2017-10-12)
DX: N17.9 Acute kidney failure, unspecified (principal); R18.8 Other ascites; I85.00 Esophageal varices without bleeding; E11.22 Type 2 diabetes mellitus with diabetic chronic kidney disease; E87.5 Hyperkalemia; K74.69 Other cirrhosis of liver; K75.4 Autoimmune hepatitis; K29.70 Gastritis, unspecified, without bleeding; N18.9 Chronic kidney disease, unspecified; I12.9 Hypertensive chronic kidney disease with stage 1 through stage 4 chronic kidney disease, or unspecified chronic kidney disease; D63.1 Anemia in chronic kidney disease; E86.0 Dehydration; K22.8 Other specified diseases of esophagus; K44.9 Diaphragmatic hernia without obstruction or gangrene; K31.9 Disease of stomach and duodenum, unspecified; E11.65 Type 2 diabetes mellitus with hyperglycemia; M19.90 Unspecified osteoarthritis, unspecified site; K57.30 Diverticulosis of large intestine without perforation or abscess without bleeding; E11.649 Type 2 diabetes mellitus with hypoglycemia without coma; M31.6 Other giant cell arteritis; F32.9 Major depressive disorder, single episode, unspecified; F41.9 Anxiety disorder, unspecified; Z23 Encounter for immunization; Z79.4 Long term (current) use of insulin; Z88.0 Allergy status to penicillin; Z88.1 Allergy status to other antibiotic agents; Z88.2 Allergy status to sulfonamides; Z88.5 Allergy status to narcotic agent
CPT/HCPCS: 49083; 74018; 74177; 76705; 80048; 80053; 81001; 82010; 82550; 82947; 82948; 83690; 83735; 84100; 84484; 85025; 85027; 85610; 85730; 88305; 90686; 93005; 99285; C1729; J0780; J1815; J2370; J2405; J7030; J7512; Q2038; Q9963; Q9967

== ENCOUNTER 2017-10-15 15:29 | Observation (INO) | payer OTHER ==
[~2017-10-15 15:29] MED LIST changes: -CHOL4POW3 PO; +LATA.005%O EACH EYE; -LEVO75TA3 PO; +LEVO88TA2 PO; -METO25TA3 PO; -ZOFR4TAB3 SL
[2017-10-15 15:43] VITALS: BP 85/53; PULSE 91; RESP 16; TEMP 98.8; O2SAT 96
[2017-10-15 17:20] LABS: AUTOMATED NEUTROPHIL # 4.3 TH/MM3 (1.8-7.7); BASOPHIL % 0.5 % (0.0-2.0); EOSINOPHIL % 0.2 % (0.0-4.0); HEMATOCRIT 30.4 % (35.0-46.0); HEMOGLOBIN 10.3 GM/DL (11.6-15.3); LYMPH % 8.4 % (9.0-44.0); LYMPHOCYTE # 0.4 TH/MM3 (1.0-4.8); MEAN CELL VOLUME 97.3 FL (80.0-100.0); MEAN CORPUSCULAR HEMOGLOBIN 33.1 PG (27.0-34.0); MEAN PLATELET VOLUME 9.2 FL (7.0-11.0); MONO % 10.5 % (0.0-8.0); MONOCYTE # 0.6 TH/MM3 (0-0.9); NEUT % 80.4 % (16.0-70.0); PLATELET COUNT 278 TH/MM3 (150-450); RED BLOOD COUNT 3.12 MIL/MM3 (4.00-5.30); RED CELL DISTRIBUTION WIDTH 15.9 % (11.6-17.2); WHITE BLOOD COUNT 5.3 TH/MM3 (4.0-11.0)
[2017-10-15 17:31] LABS: ALBUMIN 1.9 GM/DL (3.4-5.0); ALKALINE PHOSPHATASE 300 U/L (45-117); ALT (GPT) 33 U/L (10-53); AST (GOT) 62 U/L (15-37); BLOOD UREA NITROGEN 56 MG/DL (7-18); CALCIUM 8.5 MG/DL (8.5-10.1); CHLORIDE 97 MEQ/L (98-107); GLOMERULAR FILTRATION RATE 25 ML/MIN (>89); GLUCOSE,RANDOM 300 MG/DL (74-106); SODIUM (NA) 132 MEQ/L (136-145); TOTAL BILIRUBIN ADULT 0.8 MG/DL (0.2-1.0); TOTAL PROTEIN 7.3 GM/DL (6.4-8.2)
[2017-10-15] MEDS ORDERED: ONDANSETRON HCL 4 MG/2 ML VIAL IV PUSH ONE (18:15)
[2017-10-15] MEDS ORDERED: SODIUM CHLORID 0.9% 500 ML INJ 500 ML IV ONE (18:15)
[2017-10-15 18:19] VITALS: RESP 20; O2SAT 97
--- NOTE | 2017-10-15 19:04 | PD ---
HPI Chief Complaint: GI Complaint Time Seen by Provider: 18:02 Travel History International Travel<30 days: No Contact w/Intl Traveler<30days: No Traveled to known affect area: No History of Present Illness HPI Patient is a 67 year old female who comes in complaining of nausea and vomiting with SOB. She was here a few days ago for the same thing. She has history of cirrhosis from autoimmune hepatitis. She says she had a paracentesis while she was admitted and says the fluid has built back up and now she feels short of breath. She says she is unable to keep anything down. She says she feels like she should not have been discharged. She denies fever or chills. She says her abdomen hurts all over. Severity is mild to moderate. PFSH Past Medical History Hx Anticoagulant Therapy: Yes (ASPIRIN 81mg) Arthritis: Yes Asthma: No Autoimmune Disease: Yes (HEPATITIS) Blood Disorders: No Anxiety: Yes Depression: Yes Heart Rhythm Problems: Yes (RBBB) Cancer: No Cardiovascular Problems: Yes (HTN) High Cholesterol: Yes Chemotherapy: No Chest Pain: No Congestive Heart Failure: No Cirrhosis: Yes COPD: No Cerebrovascular Accident: No Diabetes: Yes Patient Takes Glucophage: No Diminished Hearing: No Endocrine: Yes Gastrointestinal Disorders: Yes (liver cirrhosis, Ascitis) GERD: No Genitourinary: No Headaches: Yes Hepatitis: Yes (AUTOIMMUNE) Hypertension: Yes Immune Disorder: Yes (autoimmune hepatitis) Implanted Vascular Access Dvce: No Musculoskeletal: Yes (uses walker) Neurologic: Yes (temporal arthritis) Psychiatric: Yes Reproductive: No Respiratory: No Immunizations Current: Yes Radiation Therapy: No Seizures: No Sleep Apnea: No Thyroid Disease: Yes Menopausal: Yes Ovarian Cysts: Yes (1985) Past Surgical History Abdominal Surgery: Yes (paracenthesis) Appendectomy: Yes Gynecologic Surgery: Yes (HYSTERECTOMY ) Hysterectomy: Yes Pacemaker: No Other Surgery: Yes (LIVER/BREAST BIOPSY 2005) Social History Alcohol Use: No Tobacco Use: No Substance Use: No Allergies-Medications (Allergen,Severity, Reaction): Coded Allergies: doxycycline (Unverified Allergy, Severe, Rash, 10/06/17) minocycline (Unverified Allergy, Severe, Rash, 10/06/17) morphine (Unverified Allergy, Severe, Rash, 10/06/17) penicillin G (Unverified Allergy, Severe, Rash, 10/06/17) tigecycline (Unverified Allergy, Severe, Rash, 10/06/17) Sulfa (Sulfonamide Antibiotics) (Unverified Allergy, Unknown, Rash, ) clindamycin (Unverified Allergy, Unknown, Nausea/Vomiting, 10/06/17) Reported Meds & Prescriptions Reported Meds & Active Scripts Active Amlodipine (Amlodipine Besylate) 2.5 Mg Tab 2.5 Mg PO DAILY Hydrochlorothiazide 12.5 Mg Cap 12.5 Mg PO DAILY Spironolactone 25 Mg Tab 25 Mg PO DAILY Prednisone 10 Mg Tab 10 Mg PO DAILY 30 Days Losartan (Losartan Potassium) 25 Mg Tab 25 Mg PO DAILY Clonidine (Clonidine HCl) 0.1 Mg Tab 0.1 Mg PO BID Pantoprazole (Pantoprazole Sodium) 40 Mg Tab 40 Mg PO DAILY Zoloft (Sertraline HCl) 50 Mg Tab 50 Mg PO DAILY Reported Xalatan Opth Drops (Latanoprost) 0.005% Drops 1 Drop EACH EYE HS Levemir Inj (Insulin Detemir) 1,000 unit/ 10 ML Vial 20 Units SQ BID Do not mix with any other Insulin. Levothyroxine (Levothyroxine Sodium) 88 Mcg Tab 88 Mcg PO DAILY Novolog Inj (Insulin Aspart) 1,000 Unit/10 Ml Vial 0 SQ DIRECTED Sliding Scale as directed. C-500 (Ascorbic Acid) 500 Mg Tab.chew 500 Mg PO DAILY Vitamin D3 (Cholecalciferol) 1,000 Unit Tab 1,000 Units PO DAILY Mercaptopurine 50 Mg Tab 50 Mg PO DAILY Enulose Liq (Lactulose (Encephalopathy) Liq) 10 Gm/15 Ml Soln 20 Gm PO BID Review of Systems Except as stated in HPI: all other systems reviewed are Neg General / Constitutional: No: Fever, Chills HENT: No: Headaches, Lightheadedness Cardiovascular: No: Chest Pain or Discomfort Respiratory: Positive: Shortness of Breath Gastrointestinal: Positive: Nausea, Vomiting, Abdominal Pain Musculoskeletal: No: Myalgias Skin: No Rash, No Change in Pigmentation Neurologic: No: Weakness, Dizziness Physical Exam Narrative GENERAL: Awake and alert, in no acute distress. SKIN: Focused skin assessment warm/dry. HEAD: Atraumatic. Normocephalic. EYES: Pupils equal and round. No scleral icterus. ENT: Mucous membranes pink and moist. NECK: Trachea midline. No JVD. CARDIOVASCULAR: Regular rate and rhythm. No murmur appreciated. RESPIRATORY: No accessory muscle use. Clear to auscultation. Breath sounds equal bilaterally. GASTROINTESTINAL: Ascitic abdomen, mildly tender to palpation, still soft. MUSCULOSKELETAL: No obvious deformities. No clubbing. No cyanosis. No edema. NEUROLOGICAL: Awake and alert. No obvious cranial nerve deficits. Motor grossly within normal limits. Normal speech. PSYCHIATRIC: Appropriate mood and affect; insight and judgment normal. Data Data Last Documented VS Vital Signs Date Time Temp Pulse Resp B/P (MAP) Pulse Ox O2 Delivery O2 Flow Rate FiO2 10/15/17 18:19 20 97 Room Air 10/15/17 15:43 98.8 91 85/53 (64) Orders Orders Complete Blood Count With Diff (10/15/17 15:45) Comprehensive Metabolic Panel (10/15/17 15:45) Urinalysis - C+S If Indicated (10/15/17 15:45) Iv Access Insert/Monitor (10/15/17 15:45) Oxygen Administration (10/15/17 15:45) Oximetry (10/15/17 15:45) Lipase (10/15/17 15:45) Sodium Chlorid 0.9% 500 Ml Inj (Ns 500 M (10/15/17 18:15) Chest, Single Ap (10/15/17 ) Ondansetron Inj (Zofran Inj) (10/15/17 18:15) Labs Laboratory Tests Test 10/15/17 16:37 White Blood Count 5.3 TH/MM3 Red Blood Count 3.12 MIL/MM3 Hemoglobin 10.3 GM/DL Hematocrit 30.4 % Mean Corpuscular Volume 97.3 FL Mean Corpuscular Hemoglobin 33.1 PG Mean Corpuscular Hemoglobin Concent 34.0 % Red Cell Distribution Width 15.9 % Platelet Count 278 TH/MM3 Mean Platelet Volume 9.2 FL Neutrophils (%) (Auto) 80.4 % Lymphocytes (%) (Auto) 8.4 % Monocytes (%) (Auto) 10.5 % Eosinophils (%) (Auto) 0.2 % Basophils (%) (Auto) 0.5 % Neutrophils # (Auto) 4.3 TH/MM3 Lymphocytes # (Auto) 0.4 TH/MM3 Monocytes # (Auto) 0.6 TH/MM3 Eosinophils # (Auto) 0.0 TH/MM3 Basophils # (Auto) 0.0 TH/MM3 CBC Comment DIFF FINAL Differential Comment Blood Urea Nitrogen 56 MG/DL Creatinine 2.00 MG/DL Random Glucose 300 MG/DL Total Protein 7.3 GM/DL Albumin 1.9 GM/DL Calcium Level 8.5 MG/DL Alkaline Phosphatase 300 U/L Aspartate Amino Transf (AST/SGOT) 62 U/L Alanine Aminotransferase (ALT/SGPT) 33 U/L Total Bilirubin 0.8 MG/DL Sodium Level 132 MEQ/L Potassium Level 5.6 MEQ/L Chloride Level 97 MEQ/L Carbon Dioxide Level 26.0 MEQ/L Anion Gap 9 MEQ/L Estimat Glomerular Filtration Rate 25 ML/MIN Lipase 90 U/L [facility] Medical Decision Making Medical Screen Exam Complete: Yes Emergency Medical Condition: Yes Medical Record Reviewed: Yes Differential Diagnosis intractable vomiting vs fluid overload vs gastritis vs gastroparesis Narrative Course Patient is a 67 year old female who comes in complaining of nausea and vomiting. Exam shows ascitic belly, still soft on palpation. IV established, labs sent. Labs concerning for elevated Cr to 2.00, up from 1.23 from 3/5. Given small dose of fluids. CXR shows no fluid overload. Given Zofran. will be placed in observation. Diagnosis Primary Impression: OSVALDO (acute kidney injury) Evi Aggarwal MD Oct 15, 2017 19:04
--- NOTE | 2017-10-15 19:05 | RADRPT ---
EXAM DATE/TIME: 10/15/2017 18:29 [facility] COMPARISON: CHEST SINGLE AP, January 22, 2017, 15:40. INDICATIONS : Short of breath. MEDICAL HISTORY : Auto immune hepatitis. SURGICAL HISTORY : None. ENCOUNTER: Subsequent ACUITY: 1 day PAIN SCORE: 0/10 LOCATION: Bilateral chest FINDINGS: Frontal view of the chest demonstrates a elongated horizontal there is opacity in the lower central r ight lung which may represent fluid in the minor fissure or a focal area of atelectasis. The remaind er of the lungs are clear. The heart is normal in size. Both costophrenic angles are well delineate d. CONCLUSION: Linear opacity in the right midlung may represent fluid in the minor fissure or discoid atelectasis. Jose Dye MD on October 15, 2017 at 19:02 Board Certified Radiologist. This report was verified electronically.
[2017-10-15 19:10] VITALS: BP 142/67; PULSE 86; RESP 16; O2SAT 97
[2017-10-15 19:46] LABS: BILIRUBIN, URINE NEG (NEG); BLOOD, URINE NEG (NEG); GLUCOSE,URINE NEG (NEG); HYALINE CAST, URINE 180 /lpf (RARE); KETONE, URINE NEG (NEG); NITRITE,URINE NEG (NEG); SQUAMOUS EPITHELIAL CELL URINE 2 /hpf (0-5); TRANSITIONAL EPI CELLS, URINE <1 /hpf; URINE COLOR DARK-YELLOW (YELLW/STRAW); URINE LEUKOCYTE ESTERASE SMALL (NEG)
[2017-10-15] MEDS ORDERED: ONDANSETRON HCL 4 MG/2 ML VIAL IVP PRN (20:30)
[2017-10-15] MEDS ORDERED: NALOXONE HCL 0.4 MG/ML AMP IV PUSH PRN (20:30)
[2017-10-15] MEDS ORDERED: GLUCAGON 1 MG/ML VIAL OTHER PRN (20:30)
[2017-10-15] MEDS ORDERED: ACETAMINOPHEN 325 MG TAB PO PRN (20:30)
[2017-10-15] MEDS ORDERED: SODIUM CHLORIDE 0.9% FLUSH 10 ML FLUSH IV FLUSH PRN (20:30)
[2017-10-15] MEDS ORDERED: DEXTROSE 50% IN WATER 50 ML VIAL(D50) IV PUSH PRN (20:30)
[2017-10-15] MEDS ORDERED: PILL SPLITTER OTHER PRN (20:45)
--- NOTE | 2017-10-15 20:48 | HHI.HP ---
[facility] Luis Clark DO Admission Diagnosis OSVALDO, intractable vomiting Diagnoses: Travel History International Travel<30 Days: No Contact w/Intl Traveler <30 Da: No Traveled to Known Affected Are: No History of Present Illness 67-year-old female with a past medical history significant for autoimmune hepatitis, cirrhosis managed with frequent paracentesis, diabetes mellitus, hypothyroidism, hypertension, hyperlipidemia and glaucoma presents to the emergency department with intractable nausea/vomiting. The patient was discharged from the hospital on Thursday afternoon and states that she was "discharged to early." She reports she has had daily nausea and vomiting since her discharge. She states that this is associated with food and she feels as though she is unable to eat anything. She also reports that she feels like she is volume overloaded. She states she has associated shortness of breath. She denies any fever/chills. Reports abdominal pain worse with palpation. Denies chest pain. Last paracentesis was 09/18/17. Review of Systems Except as stated in HPI: all other systems reviewed are Neg Past Family Social History Past Medical History Diabetes mellitus Autoimmune hepatitis Cirrhosis Hypothyroidism Glaucoma Hypertension Hyperlipidemia History of temporal arteritis Past Surgical History Hysterectomy Appendectomy Liver biopsy Breast biopsy Temporal artery biopsy Allergies: Coded Allergies: doxycycline (Unverified Allergy, Severe, Rash, 10/06/17) minocycline (Unverified Allergy, Severe, Rash, 10/06/17) morphine (Unverified Allergy, Severe, Rash, 10/06/17) penicillin G (Unverified Allergy, Severe, Rash, 10/06/17) tigecycline (Unverified Allergy, Severe, Rash, 10/06/17) Sulfa (Sulfonamide Antibiotics) (Unverified Allergy, Unknown, Rash, ) clindamycin (Unverified Allergy, Unknown, Nausea/Vomiting, 10/06/17) Active Ordered Medications Reported Meds & Active Scripts Active Amlodipine (Amlodipine Besylate) 2.5 Mg Tab 2.5 Mg PO DAILY Hydrochlorothiazide 12.5 Mg Cap 12.5 Mg PO DAILY Spironolactone 25 Mg Tab 25 Mg PO DAILY Prednisone 10 Mg Tab 10 Mg PO DAILY 30 Days Losartan (Losartan Potassium) 25 Mg Tab 25 Mg PO DAILY Clonidine (Clonidine HCl) 0.1 Mg Tab 0.1 Mg PO BID Pantoprazole (Pantoprazole Sodium) 40 Mg Tab 40 Mg PO DAILY Zoloft (Sertraline HCl) 50 Mg Tab 50 Mg PO DAILY Reported Xalatan Opth Drops (Latanoprost) 0.005% Drops 1 Drop EACH EYE HS Levemir Inj (Insulin Detemir) 1,000 unit/ 10 ML Vial 20 Units SQ BID Do not mix with any other Insulin. Levothyroxine (Levothyroxine Sodium) 88 Mcg Tab 88 Mcg PO DAILY Novolog Inj (Insulin Aspart) 1,000 Unit/10 Ml Vial 0 SQ DIRECTED Sliding Scale as directed. C-500 (Ascorbic Acid) 500 Mg Tab.chew 500 Mg PO DAILY Vitamin D3 (Cholecalciferol) 1,000 Unit Tab 1,000 Units PO DAILY Mercaptopurine 50 Mg Tab 50 Mg PO DAILY Enulose Liq (Lactulose (Encephalopathy) Liq) 10 Gm/15 Ml Soln 20 Gm PO BID Family History Mother with CAD Social History Denies alcohol, tobacco and illicit drugs Physical Exam Vital Signs Vital Signs Date Time Temp Pulse Resp B/P (MAP) Pulse Ox O2 Delivery O2 Flow Rate FiO2 10/15/17 19:10 86 16 142/67 (92) 97 Room Air 10/15/17 18:19 20 97 Room Air 10/15/17 18:19 97 Room Air 10/15/17 15:43 98.8 91 16 85/53 (64) 96 Physical Exam GENERAL: female lying in bed SKIN: No rashes, ecchymoses or lesions. Cool and dry. HEAD: Atraumatic. Normocephalic. No temporal or scalp tenderness. EYES: Pupils equal round and reactive. Extraocular motions intact. No scleral icterus. No injection or drainage. ENT: Nose without bleeding, purulent drainage or septal hematoma. Throat without erythema, tonsillar hypertrophy or exudate. Uvula midline. Airway patent. NECK: Trachea midline. No JVD or lymphadenopathy. Supple, nontender, no meningeal signs. CARDIOVASCULAR: Regular rate and rhythm without murmurs, gallops, or rubs. RESPIRATORY: Crackles present in the right lower lung bright GASTROINTESTINAL: Abdomen distended and diffusely tender to palpation MUSCULOSKELETAL: Extremities without clubbing, cyanosis, or edema. No joint tenderness, effusion, or edema noted. No calf tenderness. NEUROLOGICAL: Awake and alert. Cranial nerves II through XII intact. Motor and sensory grossly within normal limits. Normal speech. Laboratory Laboratory Tests Test 10/15/17 16:37 10/15/17 18:23 White Blood Count 5.3 Red Blood Count 3.12 Hemoglobin 10.3 Hematocrit 30.4 Mean Corpuscular Volume 97.3 Mean Corpuscular Hemoglobin 33.1 Mean Corpuscular Hemoglobin Concent 34.0 Red Cell Distribution Width 15.9 Platelet Count 278 Mean Platelet Volume 9.2 Neutrophils (%) (Auto) 80.4 Lymphocytes (%) (Auto) 8.4 Monocytes (%) (Auto) 10.5 Eosinophils (%) (Auto) 0.2 Basophils (%) (Auto) 0.5 Neutrophils # (Auto) 4.3 Lymphocytes # (Auto) 0.4 Monocytes # (Auto) 0.6 Eosinophils # (Auto) 0.0 Basophils # (Auto) 0.0 CBC Comment DIFF FINAL Differential Comment Blood Urea Nitrogen 56 Creatinine 2.00 Random Glucose 300 Total Protein 7.3 Albumin 1.9 Calcium Level 8.5 Alkaline Phosphatase 300 Aspartate Amino Transf (AST/SGOT) 62 Alanine Aminotransferase (ALT/SGPT) 33 Total Bilirubin 0.8 Sodium Level 132 Potassium Level 5.6 Chloride Level 97 Carbon Dioxide Level 26.0 Anion Gap 9 Estimat Glomerular Filtration Rate 25 Lipase 90 Urine Color DARK-YELLOW Urine Turbidity HAZY Urine pH 5.0 Urine Specific Cunningham 1.019 Urine Protein TRACE Urine Glucose (UA) NEG Urine Ketones NEG Urine Occult Blood NEG Urine Nitrite NEG Urine Bilirubin NEG Urine Urobilinogen 2.0 Urine Leukocyte Esterase SMALL Urine WBC 3 Urine Squamous Epithelial Cells 2 Urine Transitional Epithelial Cells <1 Urine Hyaline Casts 180 Microscopic Urinalysis Comment CULT NOT INDICATED Result Diagram: 10/15/17 1637 10/15/17 163 Caprini VTE Risk Assessment Caprini VTE Risk Assessment: Mod/High Risk (score >= 2) Caprini Risk Assessment Model Point Value = 1 Point Value = 2 Point Value = 3 Point Value = 5 Age 41-60 Minor surgery BMI > 25 kg/m2 Swollen legs Varicose veins or History of unexplained or recurrent spontaneous Oral contraceptives or hormone replacement Sepsis (< 1 month) Serious lung disease, including pneumonia (< 1 month) Abnormal pulmonary function Acute myocardial infarction Congestive heart failure (< 1 month) History of inflammatory bowel disease Medical patient at bed rest Age 61-74 Arthroscopic surgery Major open surgery (> 45 min) Laparoscopic surgery (> 45 min) Malignancy Confined to bed (> 72 hours) Immobilizing plaster cast Central venous access Age >= 75 History of VTE Family history of VTE Factor V Leiden Prothrombin [id number] Lupus anticoagulant Anticardiolipin antibodies Elevated serum homocysteine Heparin-induced thrombocytopenia Other congenital or acquired thrombophilia Stroke (< 1 month) Elective arthroplasty Hip, pelvis, or leg fracture Acute spinal cord injury (< 1 month) Prophylaxis Regimen Total Risk Factor Score Risk Level Prophylaxis Regimen 0-1 Low Early ambulation 2 Moderate Order ONE of the following: *Sequential Compression Device (SCD) *Heparin 5000 units SQ BID 3-4 Higher Order ONE of the following medications: *Heparin 5000 units SQ TID *Enoxaparin/Lovenox 40 mg SQ daily (WT < 150 kg, CrCl > 30 mL/min) *Enoxaparin/Lovenox 30 mg SQ daily (WT < 150 kg, CrCl > 10-29 mL/min) *Enoxaparin/Lovenox 30 mg SQ BID (WT < 150 kg, CrCl > 30 mL/min) AND/OR *Sequential Compression Device (SCD) 5 or more Highest Order ONE of the following medications: *Heparin 5000 units SQ TID (Preferred with Epidurals) *Enoxaparin/Lovenox 40 mg SQ daily (WT < 150 kg, CrCl > 30 mL/min) *Enoxaparin/Lovenox 30 mg SQ daily (WT < 150 kg, CrCl > 10-29 mL/min) *Enoxaparin/Lovenox 30 mg SQ BID (WT < 150 kg, CrCl > 30 mL/min) AND *Sequential Compression Device (SCD) Assessment and Plan Assessment and Plan Assessment/plan: 1. Intractable nausea/vomiting/abdominal pain Unclear etiology however patient previously treated for same symptoms Status post EGD and colonoscopy. EGD showed grade 1 esophageal varices, small hiatal hernia and patchy erythema in the antrum which was biopsied. Ultrasound pending for evaluation of ascites; patient may benefit from repeat paracentesis 2. Cirrhosis/autoimmune hepatitis Evaluate for paracentesis as above Continue home lactulose, spironolactone 3. Acute on chronic kidney injury BUN/creatinine 56/2.0; creatinine 1.23 on 10/12/17 Monitor renal function Avoid nephrotoxins Holding IV fluids at this time given patient's volume overload 4. Hyperkalemia Sample hemolyzed Repeat BMP in the a.m. 5. Type 2 diabetes mellitus Holding Levemir secondary to decreased by mouth intake Sliding scale insulin Monitor blood glucose 6. Hypertension/hyperlipidemia/hypothyroidism Continue home medications 7. History of right temporal arteritis Continue home steroid dosing Patient will follow up outpatient with her neurologist, Dr. Clark FEN Clear liquid diet Electrolytes: As above AYSHAs Daphne English MD Oct 15, 2017 20:48
[2017-10-15] MEDS ORDERED: LACTULOSE 20 GM PO SCH (21:00)
[2017-10-15] MEDS: LACTULOSE SYRUP 20 GM/30 ML CUP PO SCH (21:10)
[2017-10-15] MEDS: cloNIDine HCL 0.1 MG TAB PO SCH (21:10)
[2017-10-15] MEDS: INSULIN ASPART SUPPLEMENTAL SCALE SQ SCH (21:45)
[2017-10-15] MEDS: LATANOPROST 0.005% OPHT SOLN 2.5 ML BTL EACH EYE SCH (21:45)
[2017-10-15 21:46] VITALS: BP 132/69; PULSE 82; RESP 16; O2SAT 98
[2017-10-15] MEDS: SODIUM CHLORIDE 0.9% FLUSH 10 ML FLUSH IV FLUSH SCH (21:46)
[2017-10-15] MEDS: HEPARIN SODIUM - SQ 10,000 UNITS/ML VIAL SQ SCH ×2 (22:00→22:13)
--- NOTE | 2017-10-15 23:17 | RADRPT ---
EXAM DATE/TIME: 10/15/2017 22:49 [facility] COMPARISON: US ABDOMEN - LOWER LIMITED, October 06, 2017, 22:31. EXTERNAL COMPARISON : [facility], Limited abdomen ultrasound, July 12, 2015 INDICATIONS : Evaluate for ascites. MEDICAL HISTORY : Thyroid disease. Hypertension. Cirrhosis. GERD. Colitis. SURGICAL HISTORY : Hysterectomy. Paracentesis. Liver biopsy. Appendectomy. ENCOUNTER: Initial ACUITY: 1 day PAIN SCORE: 7/10 LOCATION: Bilateral lower quadrant AREA EVALUATED: Abdominal quadrants. FINDINGS: Imaging of the abdomen and pelvis was performed to evaluate for ascites for possible paracentesis. Mo derate to large diffuse ascites. CONCLUSION: Moderate to large ascites and enough to be safely drainable. aYyo Nelson MD on October 15, 2017 at 23:15 Board Certified Radiologist. This report was verified electronically.
[2017-10-16] VITALS (11 sets, daily range): BP systolic 99–135; BP diastolic 52–89; PULSE 64–95; RESP 16–18; TEMP 98.1–99.4; O2SAT 95–99
[2017-10-16] MEDS: HEPARIN SODIUM - SQ 10,000 UNITS/ML VIAL SQ SCH ×3 (05:55→20:25)
[2017-10-16 06:25] LABS: AUTOMATED NEUTROPHIL # 3.1 TH/MM3 (1.8-7.7); BASOPHIL % 0.6 % (0.0-2.0); EOSINOPHIL % 1.1 % (0.0-4.0); HEMATOCRIT 27.7 % (35.0-46.0); HEMOGLOBIN 9.4 GM/DL (11.6-15.3); LYMPHOCYTE # 0.8 TH/MM3 (1.0-4.8); MEAN CELL VOLUME 96.4 FL (80.0-100.0); MEAN CORPUSCULAR HEMOGLOBIN 32.9 PG (27.0-34.0); MEAN CORPUSCULAR HGB CONC 34.1 % (32.0-36.0); MEAN PLATELET VOLUME 9.2 FL (7.0-11.0); MONO % 13.2 % (0.0-8.0); MONOCYTE # 0.6 TH/MM3 (0-0.9); NEUT % 68.1 % (16.0-70.0); PLATELET COUNT 212 TH/MM3 (150-450); RED BLOOD COUNT 2.87 MIL/MM3 (4.00-5.30); RED CELL DISTRIBUTION WIDTH 15.8 % (11.6-17.2); WHITE BLOOD COUNT 4.5 TH/MM3 (4.0-11.0)
[2017-10-16] MEDS: LEVOTHYROXINE SODIUM 88 MCG TAB PO SCH (06:35)
[2017-10-16 06:49] LABS: ALBUMIN 1.7 GM/DL (3.4-5.0); ALKALINE PHOSPHATASE 253 U/L (45-117); ALT (GPT) 29 U/L (10-53); AST (GOT) 44 U/L (15-37); BICARBONATE 22.2 MEQ/L (21.0-32.0); BLOOD UREA NITROGEN 54 MG/DL (7-18); CALCIUM 8.2 MG/DL (8.5-10.1); CHLORIDE 100 MEQ/L (98-107); CREATININE 1.63 MG/DL (0.50-1.00); GLOMERULAR FILTRATION RATE 32 ML/MIN (>89); GLUCOSE,RANDOM 186 MG/DL (74-106); SODIUM (NA) 133 MEQ/L (136-145); TOTAL BILIRUBIN ADULT 0.6 MG/DL (0.2-1.0); TOTAL PROTEIN 6.6 GM/DL (6.4-8.2)
[2017-10-16] MEDS ORDERED: LOSARTAN 25 MG TAB PO SCH (09:00)
[2017-10-16] MEDS ORDERED: SPIRONOLACTONE 25 MG TAB PO SCH (09:00)
[2017-10-16] MEDS: LACTULOSE SYRUP 20 GM/30 ML CUP PO SCH ×3 (09:04→20:26)
[2017-10-16] MEDS: predniSONE 10 MG TAB PO SCH (09:04)
[2017-10-16] MEDS: cloNIDine HCL 0.1 MG TAB PO SCH ×2 (09:04→20:25)
[2017-10-16] MEDS: amLODIPine BESYLATE 5 MG TAB PO SCH (09:05)
[2017-10-16] MEDS: PANTOPRAZOLE SOD 40 MG DELAYED RELEASE TAB PO SCH (09:05)
[2017-10-16] MEDS: INSULIN ASPART SUPPLEMENTAL SCALE SQ SCH ×4 (09:05→20:42)
[2017-10-16] MEDS: SERTRALINE HCL 50 MG TAB PO SCH (09:28)
[2017-10-16] MEDS: HYDROCHLOROTHIAZIDE 12.5 MG CAP PO SCH (09:28)
[2017-10-16] MEDS: SODIUM CHLORIDE 0.9% FLUSH 10 ML FLUSH IV FLUSH SCH ×2 (09:31→20:27)
[2017-10-16] MEDS: MERCAPTOPURINE 50 MG TAB PO SCH (11:25)
[2017-10-16] MEDS ORDERED: LIDOCAINE HCL 1% 20 ML VIAL ONE (11:52)
--- NOTE | 2017-10-16 11:56 | RADRPT ---
EXAM DATE/TIME: 10/16/2017 09:29 [facility] COMPARISON: EXTERNAL COMPARISON: US GUIDED ABD PARACENTESIS, October 09, 2017, 14:42. [facility], MR ABDOMEN W/ AND W/O , Jul 16 2015, INDICATIONS : Ascities. MEDICAL HISTORY : Hypothyroidism. Gastroesophageal reflux disease. Hypercholesterolemia. Hypertension. Colitis. [place] a. Temporal arthritis. Mumps. Osteoarthritis. Liver disease. Diabetes. Measles. Cirrhosis. Hepatitis. SURGICAL HISTORY : Appendectomy. Hysterectomy. Liver biopsy. ENCOUNTER: Subsequent ACUITY: 1 month PAIN SCORE: 2/10 LOCATION: Right lower quadrant FLUID: Total volume of 6200 cc of clear, yellow fluid was removed. Fluid was discarded. Paracentesis was therapeutic only. Post procedure scanning reveals no hematoma or other complication. TECHNIQUE: 1. Ultrasound guidance for abdominal paracentesis. 2. Paracentesis. The risks, benefits, and alternatives to ultrasound guided paracentesis were explained to the patient in detail including the risk of bleeding and infection. Written and verbal informed consent was obt ained. With the patient on the ultrasound table, ultrasound imaging was used to select the most appropriate approach for paracentesis. Overlying skin was prepped and draped in the usual sterile fashion and wi th a local anesthetic, a dermatotomy was made with an 11 blade scalpel. A 6 [place] [id number] ca theter was introduced into the peritoneal cavity and fluid was collected. The patient tolerated the procedure well and left the ultrasound suite in stable condition. CONCLUSION: Uncomplicated ultrasound guided paracentesis. Idris Dumas MD on October 16, 2017 at 11:54 Board Certified Radiologist. This report was verified electronically.
--- NOTE | 2017-10-16 13:40 | HHI.PR ---
Subjective Remarks Follow-up nausea vomiting and ascites. Improved nausea and vomiting. Denies abdominal pain only complaint of abdominal pressure from swelling. Tolerated paracentesis. Discussed with nursing Objective Vitals Vital Signs Date Time Temp Pulse Resp B/P (MAP) Pulse Ox O2 Delivery O2 Flow Rate FiO2 10/16/17 13:33 68 18 123/67 (85) 97 10/16/17 11:43 64 18 126/60 (82) 98 Room Air 10/16/17 11:25 68 18 115/58 (77) 98 Room Air 10/16/17 08:30 77 18 135/64 (87) 96 Room Air 10/16/17 06:36 72 16 108/56 (73) 99 Room Air 10/16/17 05:27 82 16 132/67 (88) 99 Room Air 10/16/17 01:54 80 16 132/89 (103) 98 Room Air 10/15/17 21:46 82 16 132/69 (90) 98 Room Air 10/15/17 19:10 86 16 142/67 (92) 97 Room Air 10/15/17 18:19 20 97 Room Air 10/15/17 18:19 97 Room Air 10/15/17 15:43 98.8 91 16 85/53 (64) 96 I/O 10/15/17 10/15/17 10/15/17 10/16/17 10/16/17 10/16/17 07:00 15:00 23:00 07:00 15:00 23:00 Intake Total 500 ml Balance 500 ml Intake IV Total 500 ml Result Diagram: 10/16/17 0547 10/16/17 0547 Imaging Last Impressions Cyst Biopsy Asp-Paracentesis US 10/16/17 0000 Signed Impressions: Service Date/Time: Monday, October 16, 2017 09:29 - CONCLUSION: Uncomplicated ultrasound guided paracentesis. Idris Dumas MD Abdomen Ultrasound 10/15/172030 Signed Impressions: Service Date/Time: October 22:49 - CONCLUSION: Moderate to large ascites and enough to be safely drainable. Yayo Nelson MD Chest X-Ray 10/15/17 0000 Signed Impressions: Service Date/Time: October 18:29 - CONCLUSION: Linear opacity in the right midlung may represent fluid in the minor fissure or discoid atelectasis. Jose Dye MD Objective Remarks GENERAL: female lying in bed SKIN: No rashes, ecchymoses or lesions. Cool and dry. CARDIOVASCULAR: Regular rate and rhythm without murmurs, gallops, or rubs. RESPIRATORY: Crackles present in the right lower lung bright GASTROINTESTINAL: Abdomen distended and nontender MUSCULOSKELETAL: Extremities without clubbing, cyanosis but with minimal pedal edema. No joint tenderness, effusion, or edema noted. No calf tenderness. NEUROLOGICAL: Awake and alert. Cranial nerves II through XII intact. Motor and sensory grossly within normal limits. Normal speech. Procedures Large volume paracentesis A/P Problem List: (1) Cirrhosis of liver with ascites ICD Code: K74.60 - Cirrhosis of liver with ascites Status: Acute Permanent Comment: No ammonia - brittle diabetes Dr Etienne - EGD - Chari Berry 12/22 Chari Berry without active bleeding, esophagitis. Colonoscopy - 12/22 - polyp Last Edited By: Zia Self on Mar 05, 2015 15:25 Assessment and Plan 1. Intractable nausea/vomiting. Improving Unclear etiology however patient previously treated for same symptoms Status post EGD and colonoscopy. EGD showed grade 1 esophageal varices, small hiatal hernia and patchy erythema in the antrum which was biopsied. Colonic diverticulum 2. Cirrhosis/autoimmune hepatitis with ascites Tolerated large-volume paracentesis. Will give IV albumin per protocol Continue home lactulose 3. Acute on chronic kidney injury stage III BUN/creatinine 56/2.0; creatinine 1.23 on 10/12/17 Monitor renal function Avoid nephrotoxins hold Aldactone and losartan Holding IV fluids at this time given patient's volume overload 4. Hyperkalemia Sample hemolyzed Repeat BMP in the a.m. 5. Type 2 diabetes mellitus Hyperglycemia will restart Levemir at half of the home dose. Hypoglycemia protocol Sliding scale insulin Monitor blood glucose 6. Hypertension/hyperlipidemia/hypothyroidism Continue home medications 7. History of right temporal arteritis Continue home steroid dosing Patient will follow up outpatient with her neurologist, Dr. Eduardo ROONEY Advance diet as tolerated Electrolytes: As above SCDs Discharge Planning Possible discharge in the morning Bebeto Guevara MD Oct 16, 2017 13:40
[2017-10-16] MEDS ORDERED: ALBUMIN 25% IV ONE (14:15)
[2017-10-16] MEDS: LATANOPROST 0.005% OPHT SOLN 2.5 ML BTL EACH EYE SCH (20:25)
[2017-10-16] MEDS ORDERED: INSULIN DETEMIR 100 UNITS/ML VIAL SQ SCH (21:00)
[2017-10-17 03:42] VITALS: BP 108/52; PULSE 81; RESP 18; TEMP 99.7; O2SAT 94
[2017-10-17] MEDS: LEVOTHYROXINE SODIUM 88 MCG TAB PO SCH (06:59)
[2017-10-17] MEDS: HEPARIN SODIUM - SQ 10,000 UNITS/ML VIAL SQ SCH (06:59)
[2017-10-17 07:08] LABS: AUTOMATED NEUTROPHIL # 2.9 TH/MM3 (1.8-7.7); BASOPHIL % 0.5 % (0.0-2.0); EOSINOPHIL % 0.5 % (0.0-4.0); HEMATOCRIT 24.4 % (35.0-46.0); HEMOGLOBIN 8.5 GM/DL (11.6-15.3); LYMPH % 16.8 % (9.0-44.0); LYMPHOCYTE # 0.7 TH/MM3 (1.0-4.8); MEAN CELL VOLUME 94.9 FL (80.0-100.0); MEAN CORPUSCULAR HEMOGLOBIN 33.2 PG (27.0-34.0); MEAN PLATELET VOLUME 8.8 FL (7.0-11.0); MONO % 12.7 % (0.0-8.0); MONOCYTE # 0.5 TH/MM3 (0-0.9); NEUT % 69.5 % (16.0-70.0); PLATELET COUNT 212 TH/MM3 (150-450); RED BLOOD COUNT 2.57 MIL/MM3 (4.00-5.30); RED CELL DISTRIBUTION WIDTH 15.4 % (11.6-17.2); WHITE BLOOD COUNT 4.2 TH/MM3 (4.0-11.0)
--- NOTE | 2017-10-17 07:18 | HHI.PR ---
Subjective Remarks Follow-up ascites and diabetes mellitus. She is doing okay tolerating diet denies nausea and abdominal pain. Hyperglycemia will increase Levemir to home dose of 20 units twice a day. Discussed with nursing Objective Vitals Vital Signs Date Time Temp Pulse Resp B/P (MAP) Pulse Ox O2 Delivery O2 Flow Rate FiO2 10/17/17 03:42 99.7 81 18 108/52 (70) 94 10/16/17 23:19 99.4 85 18 99/52 (68) 96 10/16/17 19:55 99.0 95 18 125/59 (81) 95 10/16/17 15:51 98.1 82 16 124/62 (82) 97 10/16/17 13:48 98.4 75 18 122/60 (80) 98 10/16/17 13:33 68 18 123/67 (85) 97 10/16/17 11:43 64 18 126/60 (82) 98 Room Air 10/16/17 11:25 68 18 115/58 (77) 98 Room Air 10/16/17 08:30 77 18 135/64 (87) 96 Room Air I/O 10/16/17 10/16/17 10/16/17 10/17/17 10/17/17 10/17/17 07:00 15:00 23:00 07:00 15:00 23:00 Intake Total 500 ml Balance 500 ml Intake IV Total 500 ml Result Diagram: 10/17/17 0555 10/16/17 0547 Imaging Last Impressions Cyst Biopsy Asp-Paracentesis US 10/16/17 0000 Signed Impressions: Service Date/Time: Monday, October 16, 2017 09:29 - CONCLUSION: Uncomplicated ultrasound guided paracentesis. Idris Dumas MD Abdomen Ultrasound 10/15/172030 Signed Impressions: Service Date/Time: October 22:49 - CONCLUSION: Moderate to large ascites and enough to be safely drainable. Yayo Nelson MD Chest X-Ray 10/15/17 0000 Signed Impressions: Service Date/Time: October 18:29 - CONCLUSION: Linear opacity in the right midlung may represent fluid in the minor fissure or discoid atelectasis. Jose Dye MD Objective Remarks GENERAL: female lying in bed SKIN: No rashes, ecchymoses or lesions. Cool and dry. CARDIOVASCULAR: Regular rate and rhythm without murmurs, gallops, or rubs. RESPIRATORY: Clear lungs equal in expansion GASTROINTESTINAL: Abdomen distended and nontender MUSCULOSKELETAL: Extremities without clubbing, cyanosis but with minimal pedal edema. No joint tenderness, effusion, or edema noted. No calf tenderness. NEUROLOGICAL: Awake and alert. Cranial nerves II through XII intact. Motor and sensory grossly within normal limits. Normal speech. Procedures Large volume paracentesis A/P Problem List: (1) Cirrhosis of liver with ascites ICD Code: K74.60 - Cirrhosis of liver with ascites Status: Acute Permanent Comment: No ammonia - brittle diabetes Dr Etienne - EGD - Chari Berry 12/22 Chari Berry without active bleeding, esophagitis. Colonoscopy - 12/22 - polyp Last Edited By: Zia Self on Mar 05, 2015 15:25 Assessment and Plan 1. Intractable nausea/vomiting. Improving Unclear etiology however patient previously treated for same symptoms Status post EGD and colonoscopy. EGD showed grade 1 esophageal varices, small hiatal hernia and patchy erythema in the antrum which was biopsied. Colonic diverticulum 2. Cirrhosis/autoimmune hepatitis with ascites Tolerated large-volume paracentesis. Status post IV albumin per protocol Continue home lactulose 3. Acute on chronic kidney injury stage III. Improving BUN/creatinine 56/2.0; creatinine 1.23 on 10/12/17 Monitor renal function Avoid nephrotoxins hold losartan Holding IV fluids at this time given patient's volume overload 4. Hyperkalemia Sample hemolyzed Repeat BMP in 2 days 5. Type 2 diabetes mellitus Hyperglycemia will increase Levemir to 20 units twice a day. Hypoglycemia protocol Sliding scale insulin Monitor blood glucose 6. Hypertension/hyperlipidemia/hypothyroidism Continue home medications 7. History of right temporal arteritis Continue home steroid dosing Patient will follow up outpatient with her neurologist, Dr. Clark FEN Advance diet as tolerated Electrolytes: As above SCDs Discharge Planning Discharge patient to home Condition on discharge: Improved Regular Diet as tolerated, heart healthy diabetic diet. 1.5 L fluid restriction Ad Nila activity no driving Rx written: Lactulose Follow-up with primary care physician and Bebeto Hubbard MD Oct 17, 2017 07:18
[2017-10-17 07:24] LABS: BICARBONATE 24.6 MEQ/L (21.0-32.0); CALCIUM 7.8 MG/DL (8.5-10.1); CREATININE 1.55 MG/DL (0.50-1.00)
[2017-10-17 08:15] VITALS: BP 94/50; PULSE 68; RESP 16; TEMP 98.8; O2SAT 97
[2017-10-17] MEDS: amLODIPine BESYLATE 5 MG TAB PO SCH (09:00)
[2017-10-17] MEDS: cloNIDine HCL 0.1 MG TAB PO SCH (09:00)
[2017-10-17] MEDS ORDERED: INSULIN DETEMIR 100 UNITS/ML VIAL SQ SCH (09:00)
[2017-10-17] MEDS: LACTULOSE SYRUP 20 GM/30 ML CUP PO SCH (09:00)
[2017-10-17] MEDS ORDERED: INFLUENZA VIRUS VACCINE (QUADRIVALENT) 0.5 ML SYR IM ONE (10:00)
[2017-10-17] MEDS: SERTRALINE HCL 50 MG TAB PO SCH (10:02)
[2017-10-17] MEDS: predniSONE 10 MG TAB PO SCH (10:02)
[2017-10-17] MEDS: HYDROCHLOROTHIAZIDE 12.5 MG CAP PO SCH (10:03)
[2017-10-17] MEDS: PANTOPRAZOLE SOD 40 MG DELAYED RELEASE TAB PO SCH (10:03)
[2017-10-17] MEDS: SODIUM CHLORIDE 0.9% FLUSH 10 ML FLUSH IV FLUSH SCH (10:09)
[2017-10-17] MEDS: INSULIN ASPART SUPPLEMENTAL SCALE SQ SCH (10:09)
[2017-10-17] MEDS ORDERED: Lactulose Liq PO (10:51)
--- NOTE | 2017-10-17 10:51 | HHI.DCPOC ---
Discharge Care Plan Diagnosis: (1) Cirrhosis of liver with ascites Goals to Promote Your Health * To prevent worsening of your condition and complications * To maintain your health at the optimal level Directions to Meet Your Goals Take your medications as prescribed Follow your dietary instruction Follow activity as directed Keep your appointments as scheduled Take your immunizations and boosters as scheduled If your symptoms worsen call your PCP, if no PCP go to Urgent Care Center or Emergency Room Smoking is Dangerous to Your Health. Avoid second hand smoke Call the 24-hour hour crisis hotline for domestic abuse at Lela Raymond PA-C Oct 17, 2017 10:51 am
[2017-10-17] MEDS: MERCAPTOPURINE 50 MG TAB PO SCH (11:53)
== END 2017-10-17 13:39 | disposition home or self-care (01) ==
LOC: NEPE 15:29 → NEDA 19:16 → NEDH 10-16 01:20 → NEPGCP 10-16 13:56
PROVIDERS: ADMIT Internal Medicine; ATTEND Internal Medicine
DX: R11.2 Nausea with vomiting, unspecified (principal); K74.60 Unspecified cirrhosis of liver; R18.8 Other ascites; K75.4 Autoimmune hepatitis; N17.9 Acute kidney failure, unspecified; E87.5 Hyperkalemia; E87.70 Fluid overload, unspecified; R06.02 Shortness of breath; I12.9 Hypertensive chronic kidney disease with stage 1 through stage 4 chronic kidney disease, or unspecified chronic kidney disease; E11.22 Type 2 diabetes mellitus with diabetic chronic kidney disease; N18.9 Chronic kidney disease, unspecified; E78.00 Pure hypercholesterolemia, unspecified; E11.65 Type 2 diabetes mellitus with hyperglycemia; E03.9 Hypothyroidism, unspecified; I85.00 Esophageal varices without bleeding; K44.9 Diaphragmatic hernia without obstruction or gangrene; K22.6 Gastro-esophageal laceration-hemorrhage syndrome; K57.30 Diverticulosis of large intestine without perforation or abscess without bleeding; K21.9 Gastro-esophageal reflux disease without esophagitis; H40.9 Unspecified glaucoma; F41.9 Anxiety disorder, unspecified; F32.9 Major depressive disorder, single episode, unspecified; M19.90 Unspecified osteoarthritis, unspecified site; Z79.899 Other long term (current) drug therapy; Z79.82 Long term (current) use of aspirin
CPT/HCPCS: 49083; 71045; 76705; 80048; 80053; 81001; 82948; 83690; 83735; 85025; 96361; 96372; 96374; 99285; C1729; G0378; J1644; J1815; J2405; J7040; J7512; P9047

== ENCOUNTER 2017-10-19 13:10 | Emergency (ER) | payer OTHER, MEDICAID ==
[~2017-10-19] VITALS: Ht 157.5 cm; Wt 54.5 kg
[~2017-10-19 13:10] MED LIST changes: -LACT10SO47 PO; -LOSA25TA PO; +Lactulose Liq PO
[2017-10-19 13:39] VITALS: BP 123/64; PULSE 114; RESP 20; TEMP 99.3; O2SAT 96
[2017-10-19 15:58] LABS: BILIRUBIN, URINE NEG (NEG); BLOOD, URINE NEG (NEG); GLUCOSE,URINE NEG (NEG); HYALINE CAST, URINE 19 /lpf (RARE); KETONE, URINE NEG (NEG); NITRITE,URINE NEG (NEG); PH, URINE 5.5 (5.0-8.5); SQUAMOUS EPITHELIAL CELL URINE 4 /hpf (0-5); TRANSITIONAL EPI CELLS, URINE <1 /hpf; URINE COLOR YELLOW (YELLW/STRAW); URINE LEUKOCYTE ESTERASE LARGE (NEG)
--- NOTE | 2017-10-19 16:24 | PD ---
HPI Chief Complaint: Abdominal Pain Time Seen by Provider: 16:00 Travel History International Travel<30 days: No Contact w/Intl Traveler<30days: No Traveled to known affect area: No History of Present Illness HPI The patient is a 67-year-old female who presents to the emergency department for nausea, vomiting, and abdominal pain. 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 The patient is followed by her control system computer scientist, Dr. Etienne, and has been evaluated at the [facility] in the past for possible liver transplant list. However, the patient was advised she was not in need of a liver transplant at that time. She now notes increasing swelling of the abdomen, underwent paracentesis several days ago. The patient denies any fever, chills, or sweats. She does take lactulose for history of elevated ammonia level. The patient states she feels confused and "foggy" at times, is unable to tolerate being at home by herself during the day. The patient states she does all right at night, when her daughter is present. The patient does note her confusion is intermittent. She denies any headache or focal neurologic deficits. She denies any chest pain, shortness of breath, or edema of the upper or lower extremities. PFSH Past Medical History Hx Anticoagulant Therapy: Yes (ASPIRIN 81mg) Arthritis: Yes Asthma: No Autoimmune Disease: Yes (HEPATITIS) Blood Disorders: No Anxiety: Yes Depression: Yes Heart Rhythm Problems: Yes (RBBB) Cancer: No Cardiovascular Problems: Yes High Cholesterol: Yes Chemotherapy: No Chest Pain: Yes Congestive Heart Failure: No Cirrhosis: Yes COPD: No Cerebrovascular Accident: No Diabetes: Yes Diminished Hearing: No Endocrine: Yes Gastrointestinal Disorders: Yes (liver cirrhosis, Ascitis) GERD: No Genitourinary: No Headaches: Yes Hepatitis: Yes (AUTOIMMUNE) Hypertension: Yes Immune Disorder: Yes (autoimmune hepatitis) Implanted Vascular Access Dvce: No Musculoskeletal: Yes (uses walker) Neurologic: No Psychiatric: No Reproductive: Yes (ckd) Respiratory: No Immunizations Current: Yes Radiation Therapy: No Seizures: No Sleep Apnea: No Thyroid Disease: Yes Menopausal: Yes Ovarian Cysts: Yes (1985) Past Surgical History Abdominal Surgery: Yes (paracenthesis) Appendectomy: Yes Gynecologic Surgery: Yes (HYSTERECTOMY ) Hysterectomy: Yes Pacemaker: No Other Surgery: Yes (LIVER/BREAST BIOPSY 2005) Social History Alcohol Use: No Tobacco Use: No Substance Use: No Allergies-Medications (Allergen,Severity, Reaction): Coded Allergies: doxycycline (Verified Allergy, Severe, Rash, 10/19/17) minocycline (Verified Allergy, Severe, Rash, 10/19/17) morphine (Verified Allergy, Severe, Rash, 10/19/17) penicillin G (Verified Allergy, Severe, Rash, 10/19/17) tigecycline (Verified Allergy, Severe, Rash, 10/19/17) Sulfa (Sulfonamide Antibiotics) (Verified Allergy, Unknown, Rash, 10/19/17) clindamycin (Verified Allergy, Unknown, Nausea/Vomiting, 10/19/17) Reported Meds & Prescriptions Reported Meds & Active Scripts Active Zofran Odt (Ondansetron Odt) 8 Mg Tab 8 Mg SL Q8H PRN [Lactulose Liq] 30 ML Syrp 30 Ml PO QID Amlodipine (Amlodipine Besylate) 2.5 Mg Tab 2.5 Mg PO DAILY Hydrochlorothiazide 12.5 Mg Cap 12.5 Mg PO DAILY Spironolactone 25 Mg Tab 25 Mg PO DAILY Prednisone 10 Mg Tab 10 Mg PO DAILY 30 Days Clonidine (Clonidine HCl) 0.1 Mg Tab 0.1 Mg PO BID Pantoprazole (Pantoprazole Sodium) 40 Mg Tab 40 Mg PO DAILY Zoloft (Sertraline HCl) 50 Mg Tab 50 Mg PO DAILY Reported Xalatan Opth Drops (Latanoprost) 0.005% Drops 1 Drop EACH EYE HS Levemir Inj (Insulin Detemir) 1,000 unit/ 10 ML Vial 20 Units SQ BID Do not mix with any other Insulin. Levothyroxine (Levothyroxine Sodium) 88 Mcg Tab 88 Mcg PO DAILY Novolog Inj (Insulin Aspart) 1,000 Unit/10 Ml Vial 0 SQ DIRECTED Sliding Scale as directed. C-500 (Ascorbic Acid) 500 Mg Tab.chew 500 Mg PO DAILY Vitamin D3 (Cholecalciferol) 1,000 Unit Tab 1,000 Units PO DAILY Mercaptopurine 50 Mg Tab 50 Mg PO DAILY Review of Systems Except as stated in HPI: all other systems reviewed are Neg General / Constitutional: No: Fever HENT: No: Lightheadedness Cardiovascular: No: Chest Pain or Discomfort Respiratory: No: Shortness of Breath Gastrointestinal: Positive: Nausea, Vomiting, Abdominal Pain, No: Diarrhea Genitourinary: No: Dysuria Musculoskeletal: No: Edema Neurologic: Positive: Change in Mentation Physical Exam Narrative GENERAL: Awake, alert, nontoxic-appearing 67-year-old female who appears her stated age and is in no acute respiratory distress. SKIN: Focused skin assessment warm/dry. HEAD: Atraumatic. Normocephalic. Thinning hair noted. EYES: Pupils equal and round. No scleral icterus. No injection or drainage. ENT: No nasal bleeding or discharge. Mucous membranes pink and moist. NECK: Trachea midline. No JVD. CARDIOVASCULAR: Regular rate and rhythm. No murmur appreciated. RESPIRATORY: No accessory muscle use. Clear to auscultation. Breath sounds equal bilaterally. GASTROINTESTINAL: Abdomen soft, mild tenderness lower abdomen bilateral. Scar noted from previous subcutaneous injections. No guarding or rigidity. MUSCULOSKELETAL: No obvious deformities. No clubbing. No cyanosis. No edema. NEUROLOGICAL: Awake and alert. No obvious cranial nerve deficits. Motor grossly within normal limits. Normal speech. Nonfocal. Oriented 4. Follows commands without difficulty. PSYCHIATRIC: Appropriate mood and affect; insight and judgment normal. Data Data Last Documented VS Vital Signs Date Time Temp Pulse Resp B/P (MAP) Pulse Ox O2 Delivery O2 Flow Rate FiO2 10/19/17 22:22 10/19/17 21:00 112 16 98 Room Air 10/19/17 13:39 99.3 Orders Orders Complete Blood Count With Diff (10/19/17 13:41) Comprehensive Metabolic Panel (10/19/17 13:41) Lipase (10/19/17 13:41) Prothrombin Time / Inr (Pt) (10/19/17 13:41) Act Partial Throm Time (Ptt) (10/19/17 13:41) Urinalysis - C+S If Indicated (10/19/17 13:41) Ondansetron Inj (Zofran Inj) (10/19/17 16:30) Hydromorphone Pf Inj (Dilaudid Pf Inj) (10/19/17 16:30) Ammonia (10/19/17 16:24) Hydromorphone Pf Inj (Dilaudid Pf Inj) (10/19/17 17:15) Thyroid Stimulating Hormone (10/19/17 13:41) Sodium Chlorid 0.9% 500 Ml Inj (Ns 500 M (10/19/17 18:30) Dextrose 50% In Teri (Vial) Inj (D50w (Vi (10/19/17 18:30) Sodium Bicarbonate 8.4% Inj (Sodium Bica (10/19/17 18:30) Free T3 (10/19/17 17:03) Free Thyroxine (T4) (10/19/17 17:03) Albuterol Neb (Albuterol Neb) (10/19/17 19:45) Insulin Human Regular Inj (Novolin R Inj (10/19/17 19:45) Potassium, Serum (K) (10/19/17 21:00) Ed Discharge Order (10/19/17 21:56) Labs Laboratory Tests Test 10/19/17 14:35 10/19/17 17:03 10/19/17 21:09 10/19/17 21:44 Urine Color YELLOW Urine Turbidity CLEAR Urine pH 5.5 Urine Specific [place] 1.020 Urine Protein 30 mg/dL Urine Glucose (UA) NEG mg/dL Urine Ketones NEG mg/dL Urine Occult Blood NEG Urine Nitrite NEG Urine Bilirubin NEG Urine Urobilinogen 4.0 MG/DL Urine Leukocyte Esterase LARGE Urine WBC 4 /hpf Urine Squamous Epithelial Cells 4 /hpf Urine Transitional Epithelial Cells <1 /hpf Urine Hyaline Casts 19 /lpf Microscopic Urinalysis Comment CULT NOT INDICATED Blood Urea Nitrogen 46 MG/DL Creatinine 1.41 MG/DL Random Glucose 282 MG/DL Total Protein 7.3 GM/DL Albumin 2.1 GM/DL Calcium Level 8.8 MG/DL Alkaline Phosphatase 351 U/L Aspartate Amino Transf (AST/SGOT) 65 U/L Alanine Aminotransferase (ALT/SGPT) 40 U/L Total Bilirubin 0.6 MG/DL Sodium Level 132 MEQ/L Potassium Level 5.7 MEQ/L 5.2 MEQ/L Chloride Level 99 MEQ/L Carbon Dioxide Level 23.5 MEQ/L Anion Gap 10 MEQ/L Estimat Glomerular Filtration Rate 37 ML/MIN Ammonia 40 MCMOL/L Lipase 91 U/L Free Thyroxine 1.39 NG/DL Free Triiodothyronine (T3) pg/dL 2.07 PG/ML Thyroid Stimulating Hormone 3rd Gen 5.680 uIU/ML White Blood Count 5.2 TH/MM3 Red Blood Count 3.07 MIL/MM3 Hemoglobin 10.1 GM/DL Hematocrit 29.6 % Mean Corpuscular Volume 96.6 FL Mean Corpuscular Hemoglobin 32.8 PG Mean Corpuscular Hemoglobin Concent 34.0 % Red Cell Distribution Width 16.0 % Platelet Count 241 TH/MM3 Mean Platelet Volume 8.4 FL Neutrophils (%) (Auto) 73.5 % Lymphocytes (%) (Auto) 15.1 % Monocytes (%) (Auto) 10.3 % Eosinophils (%) (Auto) 0.4 % Basophils (%) (Auto) 0.7 % Neutrophils # (Auto) 3.8 TH/MM3 Lymphocytes # (Auto) 0.8 TH/MM3 Monocytes # (Auto) 0.5 TH/MM3 Eosinophils # (Auto) 0.0 TH/MM3 Basophils # (Auto) 0.0 TH/MM3 CBC Comment DIFF FINAL Differential Comment Prothrombin Time 10.9 SEC Prothromb Time International Ratio 1.1 RATIO Activated Partial Thromboplast Time 22.2 SEC MDM Medical Decision Making Medical Screen Exam Complete: Yes Emergency Medical Condition: Yes Medical Record Reviewed: Yes Interpretation(s) Laboratory Tests Test 10/19/17 14:35 10/19/17 17:03 10/19/17 21:09 10/19/17 21:44 Urine Color YELLOW Urine Turbidity CLEAR Urine pH 5.5 Urine Specific [place] 1.020 Urine Protein 30 mg/dL Urine Glucose (UA) NEG mg/dL Urine Ketones NEG mg/dL Urine Occult Blood NEG Urine Nitrite NEG Urine Bilirubin NEG Urine Urobilinogen 4.0 MG/DL Urine Leukocyte Esterase LARGE Urine WBC 4 /hpf Urine Squamous Epithelial Cells 4 /hpf Urine Transitional Epithelial Cells <1 /hpf Urine Hyaline Casts 19 /lpf Microscopic Urinalysis Comment CULT NOT INDICATED Blood Urea Nitrogen 46 MG/DL Creatinine 1.41 MG/DL Random Glucose 282 MG/DL Total Protein 7.3 GM/DL Albumin 2.1 GM/DL Calcium Level 8.8 MG/DL Alkaline Phosphatase 351 U/L Aspartate Amino Transf (AST/SGOT) 65 U/L Alanine Aminotransferase (ALT/SGPT) 40 U/L Total Bilirubin 0.6 MG/DL Sodium Level 132 MEQ/L Potassium Level 5.7 MEQ/L 5.2 MEQ/L Chloride Level 99 MEQ/L Carbon Dioxide Level 23.5 MEQ/L Anion Gap 10 MEQ/L Estimat Glomerular Filtration Rate 37 ML/MIN Ammonia 40 MCMOL/L Lipase 91 U/L Free Thyroxine 1.39 NG/DL Free Triiodothyronine (T3) pg/dL 2.07 PG/ML Thyroid Stimulating Hormone 3rd Gen 5.680 uIU/ML White Blood Count 5.2 TH/MM3 Red Blood Count 3.07 MIL/MM3 Hemoglobin 10.1 GM/DL Hematocrit 29.6 % Mean Corpuscular Volume 96.6 FL Mean Corpuscular Hemoglobin 32.8 PG Mean Corpuscular Hemoglobin Concent 34.0 % Red Cell Distribution Width 16.0 % Platelet Count 241 TH/MM3 Mean Platelet Volume 8.4 FL Neutrophils (%) (Auto) 73.5 % Lymphocytes (%) (Auto) 15.1 % Monocytes (%) (Auto) 10.3 % Eosinophils (%) (Auto) 0.4 % Basophils (%) (Auto) 0.7 % Neutrophils # (Auto) 3.8 TH/MM3 Lymphocytes # (Auto) 0.8 TH/MM3 Monocytes # (Auto) 0.5 TH/MM3 Eosinophils # (Auto) 0.0 TH/MM3 Basophils # (Auto) 0.0 TH/MM3 CBC Comment DIFF FINAL Differential Comment Prothrombin Time 10.9 SEC Prothromb Time International Ratio 1.1 RATIO Activated Partial Thromboplast Time 22.2 SEC Differential Diagnosis Differential diagnosis includes elevated ammonia level, hypothyroidism, depression, hyponatremia, dehydration, inability to care for self, liver failure , acute kidney injury. Narrative Course IV was established, labs are drawn and sent, and the patient was placed on cardiac telemetry monitoring and continuous pulse oximetry monitoring. Ammonia level was sent to lab. The patient was administered morphine and Zofran. The patient's TSH was elevated, therefore, free T4 and free T3 were ordered. Patient's potassium was 5.7, therefore, the patient was administered IV fluids, insulin, D50, and bicarbonate. Repeat potassium level was obtained. Repeat potassium is 5.2, there was improvement. Free T4 was normal, free T3 is mildly low. Patient is stable for outpatient follow-up with her primary physician. Return if symptoms worsen or progress. Diagnosis Primary Impression: Hyperkalemia Additional Impressions: [facility] Hypothyroidism Qualified Codes: E03.9 - Hypothyroidism, unspecified Patient Instructions: General Instructions Additional Instructions: Please provide the patient a copy of her labs at discharge. Follow-up with your primary physician. You may benefit from outpatient follow-up with your doctor in regards to home health care as needed. Return if symptoms worsen or progress. Med/Other Pt SpecificInfo: No Change to Meds Scripts Ondansetron Odt (Zofran Odt) 8 Mg Tab 8 MG SL Q8H Y for NAUSEA OR VOMITING, #10 TAB 0 Refills Prov: August Gates MD 10/19/17 Disposition: 01 DISCHARGE HOME Condition: Stable Hoang White MD Oct 19, 2017 16:24
[2017-10-19] MEDS ORDERED: ONDANSETRON HCL 4 MG/2 ML VIAL IV PUSH ONE (16:30)
[2017-10-19] MEDS ORDERED: HYDROmorphone HCL PF 1 MG/ML VIAL IV PUSH ONE (16:30)
[2017-10-19 17:14] VITALS: PULSE 95; RESP 16; O2SAT 98
[2017-10-19] MEDS ORDERED: HYDROmorphone HCL PF 2 MG/ML VIAL IV PUSH ONE (17:15)
[2017-10-19 18:08] LABS: ALBUMIN 2.1 GM/DL (3.4-5.0); ALT (GPT) 40 U/L (10-53); AST (GOT) 65 U/L (15-37); BICARBONATE 23.5 MEQ/L (21.0-32.0); BLOOD UREA NITROGEN 46 MG/DL (7-18); CALCIUM 8.8 MG/DL (8.5-10.1); CHLORIDE 99 MEQ/L (98-107); CREATININE 1.41 MG/DL (0.50-1.00); GLOMERULAR FILTRATION RATE 37 ML/MIN (>89); GLUCOSE,RANDOM 282 MG/DL (74-106); SODIUM (NA) 132 MEQ/L (136-145)
[2017-10-19 18:11] LABS: ALKALINE PHOSPHATASE 351 U/L (45-117); TOTAL BILIRUBIN ADULT 0.6 MG/DL (0.2-1.0); TOTAL PROTEIN 7.3 GM/DL (6.4-8.2)
[2017-10-19] MEDS ORDERED: INSULIN HUMAN REGULAR 1,000 UNITS/10 ML VIAL IV PUSH ONE ×2 (18:30→19:45)
[2017-10-19] MEDS ORDERED: SODIUM CHLORID 0.9% 500 ML INJ 500 ML IV ONE (18:30)
[2017-10-19] MEDS ORDERED: DEXTROSE 50% IN WATER 50 ML VIAL(D50) IV PUSH ONE (18:30)
[2017-10-19] MEDS ORDERED: SODIUM BICARBONATE 8.4% SOLN 50 MEQ/50 ML VIAL SLOW IVP ONE (18:30)
[2017-10-19 19:00] VITALS: BP 142/71; PULSE 97; RESP 16; O2SAT 94
[2017-10-19 19:18] LABS: FREE T3 2.07 PG/ML (2.18-3.98); FREE T4 1.39 NG/DL (0.76-1.46)
[2017-10-19 20:00] VITALS: BP 147/69; PULSE 98; RESP 16; O2SAT 98
[2017-10-19] MEDS: RESP: ALBUTEROL 2.5 MG/3 ML NEB (SCH) INH (20:07)
[2017-10-19 21:00] VITALS: BP 133/68; PULSE 112; RESP 16; O2SAT 98
[2017-10-19 22:21] LABS: AUTOMATED NEUTROPHIL # 3.8 TH/MM3 (1.8-7.7); BASOPHIL % 0.7 % (0.0-2.0); EOSINOPHIL % 0.4 % (0.0-4.0); HEMATOCRIT 29.6 % (35.0-46.0); HEMOGLOBIN 10.1 GM/DL (11.6-15.3); LYMPH % 15.1 % (9.0-44.0); LYMPHOCYTE # 0.8 TH/MM3 (1.0-4.8); MEAN CELL VOLUME 96.6 FL (80.0-100.0); MEAN CORPUSCULAR HEMOGLOBIN 32.8 PG (27.0-34.0); MEAN PLATELET VOLUME 8.4 FL (7.0-11.0); MONO % 10.3 % (0.0-8.0); MONOCYTE # 0.5 TH/MM3 (0-0.9); NEUT % 73.5 % (16.0-70.0); PLATELET COUNT 241 TH/MM3 (150-450); RED BLOOD COUNT 3.07 MIL/MM3 (4.00-5.30); WHITE BLOOD COUNT 5.2 TH/MM3 (4.0-11.0)
[2017-10-19] MEDS ORDERED: ZOFR8TAB4 SL (22:32)
[2017-10-19 22:41] LABS: INTERNATIONAL NORMALIZED RATIO 1.1 RATIO; PROTHROMBIN TIME - PATIENT 10.9 SEC (9.8-11.6)
== END 2017-10-19 22:48 | disposition home or self-care (01) ==
LOC: NEPC 13:10
DX: E87.5 Hyperkalemia (principal); E03.9 Hypothyroidism, unspecified; K75.4 Autoimmune hepatitis; K74.60 Unspecified cirrhosis of liver; K72.90 Hepatic failure, unspecified without coma; E78.00 Pure hypercholesterolemia, unspecified; I12.9 Hypertensive chronic kidney disease with stage 1 through stage 4 chronic kidney disease, or unspecified chronic kidney disease; E11.22 Type 2 diabetes mellitus with diabetic chronic kidney disease; N18.9 Chronic kidney disease, unspecified
CPT/HCPCS: 80053; 81001; 82140; 83690; 84132; 84439; 84443; 84481; 85025; 85610; 85730; 94640; 94664; 96360; 96361; 99284; J1170; J1815; J2405; J7040; J7613

== ENCOUNTER 2017-10-27 16:19 | Inpatient (IN) | payer OTHER, MEDICAID, MEDICARE ==
[~2017-10-27] VITALS: Ht 157.5 cm; Wt 61.4 kg
[~2017-10-27 16:19] MED LIST changes: +ZOFR8TAB4 SL
[2017-10-27 17:06] VITALS: BP 93/54; PULSE 97; RESP 20; TEMP 97.9; O2SAT 97
--- NOTE | 2017-10-27 17:53 | RADRPT ---
EXAM DATE/TIME: 10/27/2017 17:24 [facility] COMPARISON: CHEST SINGLE AP, October 15, 2017, 18:29. INDICATIONS : Short of breath. MEDICAL HISTORY : Hypothyroidism. Gastroesophageal reflux disease. Hypercholesterolemia.Hypertension. Colitis. Glaucoma . Temporal arthritis. Mumps. Osteoarthritis. Liver disease.Diabetes. Measles. Cirrhosis. Hepatitis SURGICAL HISTORY : Appendectomy. Hysterectomy. Liver biopsy ENCOUNTER: Initial ACUITY: 1 day PAIN SCORE: 1/10 LOCATION: Bilateral chest FINDINGS: No change in the linear infiltrate in the right lower lung. Otherwise, the lung bright are main clear . No new infiltrates are seen. There are no pleural effusions or pulmonary edema. Heart size is stabl e. Bony structures are stable. CONCLUSION: No change in the linear infiltrate in the right lower lung. Parag Corbett MD on October 27, 2017 at 17:50 Board Certified Radiologist. This report was verified electronically.
[2017-10-27 19:44] LABS: AUTOMATED NEUTROPHIL # 4.8 TH/MM3 (1.8-7.7); BASOPHIL % 0.2 % (0.0-2.0); EOSINOPHIL % 0.2 % (0.0-4.0); HEMATOCRIT 30.4 % (35.0-46.0); HEMOGLOBIN 10.1 GM/DL (11.6-15.3); LYMPH % 5.9 % (9.0-44.0); LYMPHOCYTE # 0.3 TH/MM3 (1.0-4.8); MEAN CELL VOLUME 98.6 FL (80.0-100.0); MEAN CORPUSCULAR HEMOGLOBIN 32.7 PG (27.0-34.0); MEAN CORPUSCULAR HGB CONC 33.1 % (32.0-36.0); MEAN PLATELET VOLUME 8.8 FL (7.0-11.0); MONO % 6.7 % (0.0-8.0); MONOCYTE # 0.4 TH/MM3 (0-0.9); PLATELET COUNT 306 TH/MM3 (150-450); RED BLOOD COUNT 3.08 MIL/MM3 (4.00-5.30); RED CELL DISTRIBUTION WIDTH 16.7 % (11.6-17.2); WHITE BLOOD COUNT 5.5 TH/MM3 (4.0-11.0)
[2017-10-27 19:57] LABS: AST (GOT) 60 U/L (15-37); BICARBONATE 22.7 MEQ/L (21.0-32.0); BLOOD UREA NITROGEN 69 MG/DL (7-18); CALCIUM 8.9 MG/DL (8.5-10.1); CHLORIDE 99 MEQ/L (98-107); CREATININE 2.04 MG/DL (0.50-1.00); GLOMERULAR FILTRATION RATE 24 ML/MIN (>89); GLUCOSE,RANDOM 328 MG/DL (74-106); SODIUM (NA) 133 MEQ/L (136-145)
[2017-10-27 19:59] LABS: PROTHROMBIN TIME - PATIENT 10.5 SEC (9.8-11.6)
[2017-10-27 20:01] LABS: ALKALINE PHOSPHATASE 444 U/L (45-117); ALT (GPT) 49 U/L (10-53); TOTAL BILIRUBIN ADULT 0.5 MG/DL (0.2-1.0); TOTAL PROTEIN 7.5 GM/DL (6.4-8.2)
--- NOTE | 2017-10-27 20:06 | RADRPT ---
EXAM DATE/TIME: 10/27/2017 18:36 [facility] COMPARISON: No previous studies available for comparison. [facility], July 16, 2015 INDICATIONS : Ascites. MEDICAL HISTORY : Hypercholesterolemia. Hypothyroidism. Gastroesophageal reflux disease. Hypertension. Colitis. [place] a. Temporal arthritis. Mumps. Osteoarthritis. Liver disease. SURGICAL HISTORY : Hysterectomy. Appendectomy. Liver biopsy. ENCOUNTER: [facility] ACUITY: 2 weeks PAIN SCORE: 5/10 LOCATION: Abdomen. AREA EVALUATED: Abdominal quadrants. FINDINGS: Imaging of the abdomen and pelvis was performed to evaluate for ascites for possible paracentesis. CONCLUSION: 1. Moderate to large ascites. Joel Cho MD on October 27, 2017 at 20:03 Board Certified Radiologist. This report was verified electronically.
[2017-10-27 22:33] VITALS: BP 143/67; PULSE 96; RESP 20; O2SAT 98
--- NOTE | 2017-10-27 23:57 | PD ---
HPI . Respiratory symptoms Chief Complaint: Respiratory Symptoms Time Seen by Provider: 22:36 Travel History International Travel<30 days: No Contact w/Intl Traveler<30days: No Traveled to known affect area: No History of Present Illness HPI 67-year-old female history of autoimmune hepatitis with resultant cirrhosis and ascites patient as a requirement of frequent paracentesis. Patient most recently had an observation admission with paracentesis performed by interventional radiology 8 days ago. Since then patient has had approximately 15 pound weight gain and notes having orthopnea having difficulty sleeping if sitting at less than a 30 elevation head of bed. Patient was sent in by her GI specialist Dr. Serrano evaluation and admission for paracentesis [facility] Past Medical History Narrative Medical Past medical history reviewed Hx Anticoagulant Therapy: Yes (ASPIRIN 81mg) Arthritis: Yes Asthma: No Autoimmune Disease: Yes (HEPATITIS) Blood Disorders: No Anxiety: Yes Depression: Yes Heart Rhythm Problems: Yes (RBBB) Cancer: No Cardiovascular Problems: Yes High Cholesterol: Yes Chemotherapy: No Chest Pain: Yes Congestive Heart Failure: No Cirrhosis: Yes COPD: No Cerebrovascular Accident: No Diabetes: Yes Patient Takes Glucophage: No Diminished Hearing: No Endocrine: Yes Gastrointestinal Disorders: Yes (liver cirrhosis, Ascitis) GERD: No Genitourinary: No Headaches: Yes Hepatitis: Yes (AUTOIMMUNE) Hypertension: Yes Immune Disorder: Yes (autoimmune hepatitis) Implanted Vascular Access Dvce: No Musculoskeletal: Yes (uses walker) Neurologic: No Psychiatric: No Reproductive: Yes (ckd) Respiratory: No Immunizations Current: Yes Radiation Therapy: No Renal Failure: Yes (acute/chronic kidney disease) Seizures: No Sleep Apnea: No Thyroid Disease: Yes Menopausal: Yes Ovarian Cysts: Yes (1985) Past Surgical History Abdominal Surgery: Yes (paracenthesis) Appendectomy: Yes Gynecologic Surgery: Yes (HYSTERECTOMY ) Hysterectomy: Yes Pacemaker: No Other Surgery: Yes (LIVER/BREAST BIOPSY 2005) Social History Alcohol Use: No Tobacco Use: No Substance Use: No Allergies-Medications (Allergen,Severity, Reaction): Coded Allergies: doxycycline (Verified Allergy, Severe, Rash, 10/19/17) minocycline (Verified Allergy, Severe, Rash, 10/19/17) morphine (Verified Allergy, Severe, Rash, 10/19/17) penicillin G (Verified Allergy, Severe, Rash, 10/19/17) tigecycline (Verified Allergy, Severe, Rash, 10/19/17) Sulfa (Sulfonamide Antibiotics) (Verified Allergy, Unknown, Rash, 10/19/17) clindamycin (Verified Allergy, Unknown, Nausea/Vomiting, 10/19/17) Reported Meds & Prescriptions Reported Meds & Active Scripts Active Zofran Odt (Ondansetron Odt) 8 Mg Tab 8 Mg SL Q8H PRN [Lactulose Liq] 30 ML Syrp 30 Ml PO QID Amlodipine (Amlodipine Besylate) 2.5 Mg Tab 2.5 Mg PO DAILY Hydrochlorothiazide 12.5 Mg Cap 12.5 Mg PO DAILY Spironolactone 25 Mg Tab 25 Mg PO DAILY Prednisone 10 Mg Tab 10 Mg PO DAILY 30 Days Clonidine (Clonidine HCl) 0.1 Mg Tab 0.1 Mg PO BID Zoloft (Sertraline HCl) 50 Mg Tab 50 Mg PO DAILY Reported Xalatan Opth Drops (Latanoprost) 0.005% Drops 1 Drop EACH EYE HS Levemir Inj (Insulin Detemir) 1,000 unit/ 10 ML Vial 20 Units SQ BID Do not mix with any other Insulin. Levothyroxine (Levothyroxine Sodium) 88 Mcg Tab 88 Mcg PO DAILY Novolog Inj (Insulin Aspart) 1,000 Unit/10 Ml Vial 0 SQ DIRECTED Sliding Scale as directed. C-500 (Ascorbic Acid) 500 Mg Tab.chew 500 Mg PO DAILY Vitamin D3 (Cholecalciferol) 1,000 Unit Tab 1,000 Units PO DAILY Mercaptopurine 50 Mg Tab 50 Mg PO DAILY Narrative Medication Allergies and medications reviewed Review of Systems Except as stated in HPI: all other systems reviewed are Neg General / Constitutional: No: Fever Eyes: No: Visual changes HENT: No: Headaches Cardiovascular: No: Chest Pain or Discomfort Respiratory: No: Shortness of Breath Gastrointestinal: No: Abdominal Pain Genitourinary: No: Dysuria Musculoskeletal: No: Pain Skin: No Rash Neurologic: No: Weakness Psychiatric: No: Depression Endocrine: No: Polydipsia Hematologic/Lymphatic: No: Easy Bruising Physical Exam Narrative GENERAL: Awake and alert oriented 3 in no acute distress vital signs afebrile normal and stable SKIN: Warm and dry. Color is normal no diaphoresis cyanosis pallor or jaundice HEAD: Atraumatic. Normocephalic. EYES: Pupils equal and round. No scleral icterus. No injection or drainage. ENT: No nasal bleeding or discharge. Mucous membranes pink and moist. NECK: Trachea midline. No JVD. Supple nontender full range of motion CARDIOVASCULAR: Regular rate and rhythm. RESPIRATORY: No accessory muscle use. Clear to auscultation. Breath sounds equal bilaterally. GASTROINTESTINAL: Abdomen soft, non-tender, distended with fluid wave. Hepatic and splenic margins not palpable. MUSCULOSKELETAL: Extremities without clubbing, cyanosis, or edema. No obvious deformities. NEUROLOGICAL: Awake and alert. No obvious focal deficits PSYCHIATRIC: Appropriate mood and affect; insight and judgment normal. Data Data Last Documented VS Vital Signs Date Time Temp Pulse Resp B/P (MAP) Pulse Ox O2 Delivery O2 Flow Rate FiO2 10/27/17 22:33 96 20 143/67 (92) 98 Room Air 10/27/17 17:06 97.9 Orders Orders Complete Blood Count With Diff (10/27/17 17:08) Comprehensive Metabolic Panel (10/27/17 17:08) Coag Profile (10/27/17 17:08) Chest, Pa & Lat (10/27/17 ) Us Abdomen Lower Limited (10/27/17 ) Place In Observation (10/27/17 ) Vital Signs (Adult) Q4H (10/27/17 23:47) Activity Oob With Assistance (10/27/17 23:47) Retail General Manager / Telemetry .CONTINUOUS (10/27/17 23:47) Sodium Chloride 0.9% Flush (Ns Flush) (10/28/17 00:00) Sodium Chloride 0.9% Flush (Ns Flush) (10/28/17 09:00) Basic Metabolic Panel (Bmp) (10/28/17 06:00) Complete Blood Count With Diff (10/28/17 06:00) Resp Oxygen Alejandro C Titrat 1-4 L (10/27/17 ) Case Management Consult (10/27/17 23:47) Naloxone Inj (Narcan Inj) (10/28/17 00:00) Sodium Polysty Sulfate Liq (Kayexalate L (10/28/17 00:00) Insulin Human Regular Inj (Novolin R Inj (10/28/17 00:00) Dextrose 50% In Teri (Vial) Inj (D50w (Vi (10/28/17 00:00) Admit Order (Ed Use Only) (10/27/17 23:52) Peritoneal Cell Count + Diff (10/27/17 23:53) Fluid Culture And Gram Stain (10/27/17 23:53) Us Guided Abd Paracentesis (10/28/17 ) Labs Laboratory Tests Test 10/27/17 18:18 White Blood Count 5.5 TH/MM3 Red Blood Count 3.08 MIL/MM3 Hemoglobin 10.1 GM/DL Hematocrit 30.4 % Mean Corpuscular Volume 98.6 FL Mean Corpuscular Hemoglobin 32.7 PG Mean Corpuscular Hemoglobin Concent 33.1 % Red Cell Distribution Width 16.7 % Platelet Count 306 TH/MM3 Mean Platelet Volume 8.8 FL Neutrophils (%) (Auto) 87.0 % Lymphocytes (%) (Auto) 5.9 % Monocytes (%) (Auto) 6.7 % Eosinophils (%) (Auto) 0.2 % Basophils (%) (Auto) 0.2 % Neutrophils # (Auto) 4.8 TH/MM3 Lymphocytes # (Auto) 0.3 TH/MM3 Monocytes # (Auto) 0.4 TH/MM3 Eosinophils # (Auto) 0.0 TH/MM3 Basophils # (Auto) 0.0 TH/MM3 CBC Comment DIFF FINAL Differential Comment Prothrombin Time 10.5 SEC Prothromb Time International Ratio 1.0 RATIO Activated Partial Thromboplast Time 22.4 SEC Blood Urea Nitrogen 69 MG/DL Creatinine 2.04 MG/DL Random Glucose 328 MG/DL Total Protein 7.5 GM/DL Albumin 2.0 GM/DL Calcium Level 8.9 MG/DL Alkaline Phosphatase 444 U/L Aspartate Amino Transf (AST/SGOT) 60 U/L Alanine Aminotransferase (ALT/SGPT) 49 U/L Total Bilirubin 0.5 MG/DL Sodium Level 133 MEQ/L Potassium Level 6.2 MEQ/L Chloride Level 99 MEQ/L Carbon Dioxide Level 22.7 MEQ/L Anion Gap 11 MEQ/L Estimat Glomerular Filtration Rate 24 ML/MIN MDM Medical Decision Making Medical Screen Exam Complete: Yes Emergency Medical Condition: Yes Medical Record Reviewed: Yes Differential Diagnosis Autoimmune hepatitis, cirrhosis, liver failure, ascites Narrative Course Case discussed with hospitalist service, admitted 4 paracentesis in the a.m. Diagnosis Primary Impression: Cirrhosis of liver with ascites Qualified Codes: K74.60 - Unspecified cirrhosis of liver Admitting Information Admitting Physician Requests: Juan Patricio MD Oct 27, 2017 23:57
[2017-10-28] VITALS (12 sets, daily range): BP systolic 102–143; BP diastolic 63–81; PULSE 80–98; RESP 16–18; TEMP 97.9–98.6; O2SAT 95–98
[2017-10-28] MEDS ORDERED: CALCIUM GLUCONATE 10% 1 GM/10 ML VIAL IV PUSH ONE
[2017-10-28] MEDS ORDERED: NALOXONE HCL 0.4 MG/ML AMP IV PUSH PRN
[2017-10-28] MEDS ORDERED: INSULIN HUMAN REGULAR 1,000 UNITS/10 ML VIAL IV PUSH ONE
[2017-10-28] MEDS ORDERED: DEXTROSE 50% IN WATER 50 ML VIAL(D50) IV PUSH ONE
[2017-10-28] MEDS ORDERED: SODIUM CHLORIDE 0.9% FLUSH 10 ML FLUSH IV FLUSH PRN
[2017-10-28] MEDS ORDERED: SODIUM POLYSTYRENE SULFONATE SUSP 15 GM/60 ML CUP PO ONE
[2017-10-28] MEDS ORDERED: CALCIUM GLUCONATE INJ 1 GM in SODIUM CHLORIDE 0.9% INJ 100 ML IV ONE ×2
[2017-10-28] MEDS ORDERED: ONDANSETRON HCL 4 MG/2 ML VIAL IV PUSH ONE (01:15)
[2017-10-28 05:48] LABS: AUTOMATED NEUTROPHIL # 3.1 TH/MM3 (1.8-7.7); BASOPHIL % 0.4 % (0.0-2.0); EOSINOPHIL % 0.4 % (0.0-4.0); HEMOGLOBIN 10.1 GM/DL (11.6-15.3); LYMPH % 11.3 % (9.0-44.0); LYMPHOCYTE # 0.5 TH/MM3 (1.0-4.8); MEAN CELL VOLUME 95.9 FL (80.0-100.0); MEAN CORPUSCULAR HEMOGLOBIN 32.3 PG (27.0-34.0); MEAN CORPUSCULAR HGB CONC 33.7 % (32.0-36.0); MEAN PLATELET VOLUME 8.7 FL (7.0-11.0); MONO % 9.3 % (0.0-8.0); MONOCYTE # 0.4 TH/MM3 (0-0.9); NEUT % 78.6 % (16.0-70.0); PLATELET COUNT 268 TH/MM3 (150-450); RED BLOOD COUNT 3.12 MIL/MM3 (4.00-5.30); RED CELL DISTRIBUTION WIDTH 16.7 % (11.6-17.2)
[2017-10-28 06:08] LABS: CALCIUM 9.2 MG/DL (8.5-10.1); CREATININE 1.95 MG/DL (0.50-1.00)
[2017-10-28] MEDS ORDERED: GLUCAGON 1 MG/ML VIAL OTHER PRN (07:15)
[2017-10-28] MEDS ORDERED: DEXTROSE 50% IN WATER 50 ML VIAL(D50) IV PUSH PRN (07:15)
[2017-10-28] MEDS: INSULIN ASPART SUPPLEMENTAL SCALE SQ SCH ×4 (07:52→22:45)
[2017-10-28] MEDS: SODIUM CHLORIDE 0.9% FLUSH 10 ML FLUSH IV FLUSH SCH ×2 (08:52→22:45)
--- NOTE | 2017-10-28 09:18 | HHI.HP ---
HPI Service [facility] Hospitalists Primary Care Physician Luis Clark, Admission Diagnosis Cirrhosis, ascites Diagnoses: Chief Complaint: abdominal distention Travel History International Travel<30 Days: No Contact w/Intl Traveler <30 Da: No Traveled to Known Affected Are: No History of Present Illness Written by Lela Raymond, acting as scribe for Dr. Darden on 10/28/17 at 09:18. 67-year-old female with a past medical history significant for autoimmune hepatitis, cirrhosis with frequent paracentesis, diabetes mellitus, hypothyroidism, hypertension, hyperlipidemia and glaucoma presents to the emergency department with worsening ascites. The patient was recently admitted to [facility], s/p paracentesis on 10/16, removed 6200cc. She returns to the ED because she has noticed increased abdominal distention, weight gain of 15lbs with associated increased shortness of breath and orthopnea. She also reports diffuse abdominal pain and multiple episodes of nausea/vomiting. She states she has been unable to keep down any food. Denies any diarrhea but does report recent constipation, however did have a formed BM this morning in the ED. Denies fevers/chills. She states her symptoms are consistent with previously when she required paracentesis. She reports compliance with her medications. She was seen by her call box wirer Dr. Etienne on Monday 10/23 who recommended admission for paracentesis. She has no other medical complaints at this time including no headache, lightheadedness, dizziness, chest pain, palpitations, or urinary complaints. Review of Systems Except as stated in HPI: all other systems reviewed are Neg Past Family Social History Past Medical History Diabetes mellitus Autoimmune hepatitis Cirrhosis Hypothyroidism Glaucoma Hypertension Hyperlipidemia History of temporal arteritis Past Surgical History Hysterectomy Appendectomy Liver biopsy Breast biopsy Temporal artery biopsy Reported Medications Zofran Odt (Ondansetron Odt) 8 Mg Tab 8 Mg SL Q8H PRN [Lactulose Liq] 30 ML Syrp 30 Ml PO QID Amlodipine (Amlodipine Besylate) 2.5 Mg Tab 2.5 Mg PO DAILY Hydrochlorothiazide 12.5 Mg Cap 12.5 Mg PO DAILY Spironolactone 25 Mg Tab 25 Mg PO DAILY Prednisone 10 Mg Tab 10 Mg PO DAILY 30 Days Clonidine (Clonidine HCl) 0.1 Mg Tab 0.1 Mg PO BID Zoloft (Sertraline HCl) 50 Mg Tab 50 Mg PO DAILY Xalatan Opth Drops (Latanoprost) 0.005% Drops 1 Drop EACH EYE HS Levemir Inj (Insulin Detemir) 1,000 unit/ 10 ML Vial 20 Units SQ BID Do not mix with any other Insulin. Levothyroxine (Levothyroxine Sodium) 88 Mcg Tab 88 Mcg PO DAILY Novolog Inj (Insulin Aspart) 1,000 Unit/10 Ml Vial 0 SQ DIRECTED Sliding Scale as directed. C-500 (Ascorbic Acid) 500 Mg Tab.chew 500 Mg PO DAILY Vitamin D3 (Cholecalciferol) 1,000 Unit Tab 1,000 Units PO DAILY Mercaptopurine 50 Mg Tab 50 Mg PO DAILY Allergies: Coded Allergies: doxycycline (Verified Allergy, Severe, Rash, 10/19/17) minocycline (Verified Allergy, Severe, Rash, 10/19/17) morphine (Verified Allergy, Severe, Rash, 10/19/17) penicillin G (Verified Allergy, Severe, Rash, 10/19/17) tigecycline (Verified Allergy, Severe, Rash, 10/19/17) Sulfa (Sulfonamide Antibiotics) (Verified Allergy, Unknown, Rash, 10/19/17) clindamycin (Verified Allergy, Unknown, Nausea/Vomiting, 10/19/17) Active Ordered Medications Current Medications Medications (Trade) Dose Ordered Sig/Miranda Route Start Time Stop Time Status Last Admin (NS Flush) 2 ml UNSCH PRN IV FLUSH 10/28/17 00:00 (NS Flush) 2 ml BID IV FLUSH 10/28/17 09:00 10/28/17 08:52 (Narcan Inj) 0.4 mg UNSCH PRN IV PUSH 10/28/17 00:00 (D50w (Vial) Inj) 50 ml UNSCH PRN IV PUSH 10/28/17 07:15 (Glucagon Inj) 1 mg UNSCH PRN OTHER 10/28/17 07:15 (NovoLOG SUPPLEMENTAL SCALE) 1 ACHS SLIDING SCALE SQ 10/28/17 08:00 Family History Mother with CAD Father with lung cancer, smoker, and melanoma Grandfather and Grandmother with heart disease Social History Denies any alcohol, tobacco, or illicit drug use. Physical Exam Vital Signs Vital Signs Date Time Temp Pulse Resp B/P (MAP) Pulse Ox O2 Delivery O2 Flow Rate FiO2 10/28/17 07:48 98 16 137/70 (92) 98 Room Air 10/28/17 05:27 96 18 139/74 (95) 98 Room Air 10/28/17 03:20 88 16 102/66 (78) 98 Room Air 10/27/17 22:33 96 20 143/67 (92) 98 Room Air 10/27/17 17:06 97.9 97 20 93/54 (67) 97 Physical Exam GENERAL: Well-nourished, well-developed pleasant female patient in [facility]. SKIN: Warm and dry. No rash. HEAD: Normocephalic. Atraumatic. EYES: Pupils equal and round. No scleral icterus. No injection or drainage. ENT: No nasal bleeding or discharge. Mucous membranes pink and moist. NECK: Supple. Trachea midline. CARDIOVASCULAR: Regular rate and rhythm. S1, S2 noted. No murmur appreciated. RESPIRATORY: No accessory muscle use. Bibasilar crackles. Breath sounds equal bilaterally. GASTROINTESTINAL: Abdomen soft, mild diffuse TTP, distended with ascites, + fluid wave, worse on the left however patient laying on left side in bed all morning. Normoactive bowel sounds x4. MUSCULOSKELETAL: No obvious deformities. Extremities without clubbing, cyanosis , or edema. NEUROLOGICAL: Awake and alert. No obvious cranial nerve deficits. Motor grossly within normal limits. 5/5 muscle strength in bilateral upper and lower extremities. Normal speech. PSYCHIATRIC: Appropriate mood and affect; insight and judgment normal. Laboratory Laboratory Tests Test 10/27/17 18:18 10/28/17 05:00 White Blood Count 5.5 4.0 Red Blood Count 3.08 3.12 Hemoglobin 10.1 10.1 Hematocrit 30.4 30.0 Mean Corpuscular Volume 98.6 95.9 Mean Corpuscular Hemoglobin 32.7 32.3 Mean Corpuscular Hemoglobin Concent 33.1 33.7 Red Cell Distribution Width 16.7 16.7 Platelet Count 306 268 Mean Platelet Volume 8.8 8.7 Neutrophils (%) (Auto) 87.0 78.6 Lymphocytes (%) (Auto) 5.9 11.3 Monocytes (%) (Auto) 6.7 9.3 Eosinophils (%) (Auto) 0.2 0.4 Basophils (%) (Auto) 0.2 0.4 Neutrophils # (Auto) 4.8 3.1 Lymphocytes # (Auto) 0.3 0.5 Monocytes # (Auto) 0.4 0.4 Eosinophils # (Auto) 0.0 0.0 Basophils # (Auto) 0.0 0.0 CBC Comment DIFF FINAL DIFF FINAL Differential Comment Prothrombin Time 10.5 Prothromb Time International Ratio 1.0 Activated Partial Thromboplast Time 22.4 Blood Urea Nitrogen 69 75 Creatinine 2.04 1.95 Random Glucose 328 180 Total Protein 7.5 Albumin 2.0 Calcium Level 8.9 9.2 Alkaline Phosphatase 444 Aspartate Amino Transf (AST/SGOT) 60 Alanine Aminotransferase (ALT/SGPT) 49 Total Bilirubin 0.5 Sodium Level 133 139 Potassium Level 6.2 5.4 Chloride Level 99 103 Carbon Dioxide Level 22.7 23.0 Anion Gap 11 13 Estimat Glomerular Filtration Rate 24 26 Result Diagram: 10/28/17 0500 10/28/17 0500 Imaging Last Impressions Chest X-Ray 10/27/17 0000 Signed Impressions: Service Date/Time: Friday, October 27, 2017 17:24 - CONCLUSION: No change in the linear infiltrate in the right lower lung. Parag Corbett MD Abdomen Ultrasound 10/27/17 0000 Signed Impressions: Service Date/Time: Friday, October 27, 2017 18:36 - CONCLUSION: 1. Moderate to large ascites. Joel Cho MD Capthuyi VTE Risk Assessment Caprini VTE Risk Assessment: Mod/High Risk (score >= 2) Caprini Risk Assessment Model Point Value = 1 Point Value = 2 Point Value = 3 Point Value = 5 Age 41-60 Minor surgery BMI > 25 kg/m2 Swollen legs Varicose veins or History of unexplained or recurrent spontaneous Oral contraceptives or hormone replacement Sepsis (< 1 month) Serious lung disease, including pneumonia (< 1 month) Abnormal pulmonary function Acute myocardial infarction Congestive heart failure (< 1 month) History of inflammatory bowel disease Medical patient at bed rest Age 61-74 Arthroscopic surgery Major open surgery (> 45 min) Laparoscopic surgery (> 45 min) Malignancy Confined to bed (> 72 hours) Immobilizing plaster cast Central venous access Age >= 75 History of VTE Family history of VTE Factor V Leiden Prothrombin [id number] Lupus anticoagulant Anticardiolipin antibodies Elevated serum homocysteine Heparin-induced thrombocytopenia Other congenital or acquired thrombophilia Stroke (< 1 month) Elective arthroplasty Hip, pelvis, or leg fracture Acute spinal cord injury (< 1 month) Prophylaxis Regimen Total Risk Factor Score Risk Level Prophylaxis Regimen 0-1 Low Early ambulation 2 Moderate Order ONE of the following: *Sequential Compression Device (SCD) *Heparin 5000 units SQ BID 3-4 Higher Order ONE of the following medications: *Heparin 5000 units SQ TID *Enoxaparin/Lovenox 40 mg SQ daily (WT < 150 kg, CrCl > 30 mL/min) *Enoxaparin/Lovenox 30 mg SQ daily (WT < 150 kg, CrCl > 10-29 mL/min) *Enoxaparin/Lovenox 30 mg SQ BID (WT < 150 kg, CrCl > 30 mL/min) AND/OR *Sequential Compression Device (SCD) 5 or more Highest Order ONE of the following medications: *Heparin 5000 units SQ TID (Preferred with Epidurals) *Enoxaparin/Lovenox 40 mg SQ daily (WT < 150 kg, CrCl > 30 mL/min) *Enoxaparin/Lovenox 30 mg SQ daily (WT < 150 kg, CrCl > 10-29 mL/min) *Enoxaparin/Lovenox 30 mg SQ BID (WT < 150 kg, CrCl > 30 mL/min) AND *Sequential Compression Device (SCD) Assessment and Plan Problem List: (1) Cirrhosis of liver with ascites ICD Code: K74.60 - Cirrhosis of liver with ascites Status: Acute Permanent Comment: No ammonia - brittle diabetes Dr Etienne - EGD - Chari Berry 12/22 Chari Berry without active bleeding, esophagitis. Colonoscopy - 12/22 - polyp Last Edited By: Zia Self on Mar 05, 2015 15:25 (2) OSVALDO (acute kidney injury) ICD Code: N17.9 - Acute kidney failure, unspecified Status: Acute Assessment and Plan 67-year-old female with a past medical history significant for autoimmune hepatitis, cirrhosis managed with frequent paracentesis, diabetes mellitus, hypothyroidism, hypertension, hyperlipidemia and glaucoma presents to the emergency department with worsening ascites. Recurrent Ascites with Abdominal Pain/Nausea/Vomiting: secondary to Cirrhosis with Autoimmune Hepatitis. Recent admit, s/p paracentesis on 10/16, removed 6200cc. -Abdominal U/S shows moderate to large ascites -CXR reviewed, shows no change in linear infiltrate with RLL, likely secondary to chronic ascites, patient without any cough/fevers -IR consulted for paracentesis, send fluid for studies -Diet as tolerated -Continue home lactulose however holding spironolactone with hyperkalemia and holding hctz with OSVALDO OSVALDO on CKD stage III: Cr 2.04, previously 1.41 on 10/19/17. Likely secondary to dehydration with recent nausea/vomiting and poor oral intake. -caution with diuresis -avoid nephrotoxins, holding home HCTZ -cannot give IVF at this time due to volume overload/ascites as above -monitor BMP, slowly improving Hyperkalemia: K 6.2 upon arrival, likely secondary to dehydration -repeat BMP shows improvement with K 5.4 -holding patient's aldactone -continue to monitor Diabetes Mellitus: chronic, patient with very labile blood glucose on prior admissions -continue patient's home Levemir 20u bid -monitor Accu-checks and cover with SSI Hypertension: chronic, BP fairly well controlled currently -restart patient's home meds including amlodipine, clonidine; holding hctz for now with OSVALDO -monitor BP, adjust antihypertensives as needed Hypothyroidism: chronic -continue patient's synthroid Temporal Arteritis: chronic -continue patient's home prednisone 10mg daily DVT Prophylaxis: teds/SCDs; holding chemoprophylaxis with upcoming paracentesis This note was transcribed by SHAZIA Zarate . I, Dr. Analisa Darden personally performed the history, physical exam, and medical decision making; and confirmed the accuracy of the information in the transcribed note. Authenticated by Dr. Analisa Darden on 10/28/17 at 09:18. Discussed Condition With Patient Physician Certification 2 Midnight Certification Type: Admission for Inpatient Services Order for Inpatient Services The services are ordered in accordance with Medicare regulations or non- Medicare payer requirements, as applicable. In the case of services not specified as inpatient-only, they are appropriately provided as inpatient services in accordance with the 2-midnight benchmark. Estimated LOS (days): 3 days is the estimated time the patient will need to remain in the hospital, assuming treatment plan goals are met and no additional complications. Post-Hospital Plan: Home Lela Raymond PA-C Oct 28, 2017 09:18 Analisa Darden MD Oct 28, 2017 12:33
[2017-10-28] MEDS: MERCAPTOPURINE 50 MG TAB PO SCH (11:15)
[2017-10-28] MEDS: SERTRALINE HCL 50 MG TAB PO SCH (11:59)
[2017-10-28] MEDS: predniSONE 10 MG TAB PO SCH (11:59)
[2017-10-28] MEDS: LEVOTHYROXINE SODIUM 88 MCG TAB PO SCH (11:59)
[2017-10-28] MEDS: LACTULOSE SYRUP 20 GM/30 ML CUP PO SCH ×3 (13:00→22:44)
[2017-10-28] MEDS ORDERED: ALBUMIN 25% INJ 0 ML IV ONE (15:30)
[2017-10-28] MEDS ORDERED: LIDOCAINE HCL 1% 20 ML VIAL ONE (15:34)
--- NOTE | 2017-10-28 16:03 | RADRPT ---
EXAM DATE/TIME: 10/28/2017 14:58 [facility] COMPARISON: No previous studies available for comparison. EXTERNAL COMPARISON: Edmar Casillas, ABDOMEN W/ & W/O , Jul 16 2015, US ABDOMEN LIMITED, July 12, 2015. INDICATIONS : Ascites. MEDICAL HISTORY : Hypothyroidism. Hypercholesterolemia. Osteoarthritis. GERD. HTN. Colitis. Glaucoma. Temporal arthriti s. Mumps. Diabetes. Measles. Cirrhosis. Hepatitis. Ascites. SURGICAL HISTORY : Appendectomy. Hysterectomy. Liver biopsy. Paracentesis. ENCOUNTER: Sequela ACUITY: 2 weeks PAIN SCORE: 0/10 LOCATION: Right lower quadrant FLUID: Total volume of 6,300 cc of clear, yellow fluid was removed. Fluid was discarded. Paracentesis was therapeutic only. Post procedure scanning reveals no hematoma or other complication. TECHNIQUE: 1. Ultrasound guidance for abdominal paracentesis. 2. Paracentesis. The risks, benefits, and alternatives to ultrasound guided paracentesis were explained to the patient in detail including the risk of bleeding and infection. Written and verbal informed consent was obt ained. With the patient on the ultrasound table, ultrasound imaging was used to select the most appropriate approach for paracentesis. Overlying skin was prepped and draped in the usual sterile fashion and wi th a local anesthetic, a dermatotomy was made with an 11 blade scalpel. A 6 Irish [id number]-[id number] ca theter was introduced into the peritoneal cavity and fluid was collected. The patient tolerated the procedure well and left the ultrasound suite in stable condition. CONCLUSION: Uncomplicated ultrasound guided paracentesis. Yayo Miller MD on October 28, 2017 at 16:00 Board Certified Radiologist. This report was verified electronically.
[2017-10-28] MEDS ORDERED: LATANOPROST 0.005% OPHT SOLN 2.5 ML BTL EACH EYE SCH (21:00)
[2017-10-28] MEDS: cloNIDine HCL 0.1 MG TAB PO SCH (22:44)
[2017-10-28] MEDS: INSULIN DETEMIR 100 UNITS/ML VIAL SQ SCH (22:45)
[2017-10-29 03:36] VITALS: BP 116/57; PULSE 86; RESP 16; TEMP 99.5; O2SAT 97
[2017-10-29] MEDS: LEVOTHYROXINE SODIUM 88 MCG TAB PO SCH (05:53)
[2017-10-29 06:53] VITALS: PULSE 84
[2017-10-29] MEDS: INSULIN ASPART SUPPLEMENTAL SCALE SQ SCH ×2 (08:00→13:53)
[2017-10-29] MEDS ORDERED: amLODIPine BESYLATE 5 MG TAB PO SCH (09:00)
[2017-10-29] MEDS ORDERED: SPIRONOLACTONE 25 MG TAB PO SCH (09:00)
[2017-10-29] MEDS: LACTULOSE SYRUP 20 GM/30 ML CUP PO SCH ×2 (09:09→13:54)
[2017-10-29] MEDS: MERCAPTOPURINE 50 MG TAB PO SCH (09:11)
[2017-10-29] MEDS: SERTRALINE HCL 50 MG TAB PO SCH (09:11)
[2017-10-29] MEDS: cloNIDine HCL 0.1 MG TAB PO SCH (09:12)
[2017-10-29] MEDS: INSULIN DETEMIR 100 UNITS/ML VIAL SQ SCH (09:13)
[2017-10-29] MEDS: SODIUM CHLORIDE 0.9% FLUSH 10 ML FLUSH IV FLUSH SCH (09:13)
[2017-10-29] MEDS: predniSONE 10 MG TAB PO SCH (09:15)
--- NOTE | 2017-10-29 09:30 | HHI.PR ---
Subjective Remarks Follow up for abdominal pain/nausea/vomiting with ascites. The patient is s/p paracentesis yesterday, drained 6L. She feels much better. Denies any abdominal pain. Denies any further nausea/vomiting. No fevers/chills. Loose stools expected with lactulose. She has been able to tolerate oral intake last night, awaiting breakfast today. Blood sugar 400 last night, dropped to 70 this morning , improved with orange juice. She states at home she's been taking Levemir 20u in am and only 10u at night. She admits her blood sugars are very labile. She has no other medical complaints at this time. Objective Vitals Vital Signs Date Time Temp Pulse Resp B/P (MAP) Pulse Ox O2 Delivery O2 Flow Rate FiO2 10/29/17 06:53 84 10/29/17 03:36 99.5 86 16 116/57 (76) 97 10/28/17 23:47 98.6 89 17 111/63 (79) 95 10/28/17 23:43 86 10/28/17 23:42 21 10/28/17 20:57 96 16 126/68 (87) 97 10/28/17 17:33 97.9 92 18 143/71 (95) 97 10/28/17 16:01 98.1 88 16 142/72 (95) 95 10/28/17 15:45 98.1 80 16 143/71 (95) 96 10/28/17 15:02 98.4 91 16 133/73 (93) 96 10/28/17 14:00 98.3 91 18 131/74 (93) 97 10/28/17 13:22 10/28/17 11:15 93 18 109/81 (90) 97 Room Air I/O 10/28/17 10/28/17 10/28/17 10/29/17 10/29/17 10/29/17 06:59 14:59 22:59 06:59 14:59 22:59 Intake Total 110 ml Balance 110 ml Intake IV Total 110 ml # Voids 1 1 2 # Bowel Movements 1 1 Result Diagram: 10/28/17 0500 10/28/17 0500 Imaging Last Impressions Cyst Biopsy Asp-Paracentesis US 10/28/17 0000 Signed Impressions: Service Date/Time: Saturday, October 28, 2017 14:58 - CONCLUSION: Uncomplicated ultrasound guided paracentesis. Yayo Miller MD Chest X-Ray 10/27/17 0000 Signed Impressions: Service Date/Time: Friday, October 27, 2017 17:24 - CONCLUSION: No change in the linear infiltrate in the right lower lung. Parag Corbett MD Abdomen Ultrasound 10/27/17 0000 Signed Impressions: Service Date/Time: Friday, October 27, 2017 18:36 - CONCLUSION: 1. Moderate to large ascites. Joel Cho MD Objective Remarks GENERAL: Well-nourished, well-developed pleasant female patient in [facility]. SKIN: Warm and dry. No rash. HEENT: Normocephalic. Atraumatic.Pupils equal and round. Mucous membranes pink and moist. CARDIOVASCULAR: Regular rate and rhythm. No murmur appreciated. RESPIRATORY: No accessory muscle use. Clear to auscultation. Breath sounds equal bilaterally. GASTROINTESTINAL: Abdomen soft, non-tender, nondistended. Minimal ascites, s/p paracentesis. Normoactive bowel sounds x4. MUSCULOSKELETAL: No obvious deformities. Extremities without clubbing, cyanosis , or edema. NEUROLOGICAL: Awake and alert. No obvious cranial nerve deficits. Motor grossly within normal limits. Normal speech. PSYCHIATRIC: Appropriate mood and affect; insight and judgment normal. Medications and IVs Current Medications Medications (Trade) Dose Ordered Sig/Miranda Route Start Time Stop Time Status Last Admin (NS Flush) 2 ml UNSCH PRN IV FLUSH 10/28/17 00:00 (NS Flush) 2 ml BID IV FLUSH 10/28/17 09:00 10/29/17 09:13 (Narcan Inj) 0.4 mg UNSCH PRN IV PUSH 10/28/17 00:00 (D50w (Vial) Inj) 50 ml UNSCH PRN IV PUSH 10/28/17 07:15 (Glucagon Inj) 1 mg UNSCH PRN OTHER 10/28/17 07:15 (NovoLOG SUPPLEMENTAL SCALE) 1 ACHS SLIDING SCALE SQ 10/28/17 08:00 10/28/17 22:45 (Norvasc) 2.5 mg DAILY PO 10/29/17 09:00 10/29/17 09:12 (Catapres) 0.1 mg BID PO 10/28/17 21:00 10/29/17 09:12 (Levemir Inj) 20 units BID SQ 10/28/17 21:00 10/29/17 09:13 (Xalatan 0.005% Opth Soln) 1 drop HS EACH EYE 10/28/17 21:00 (Synthroid) 88 mcg DAILY@0600 PO 10/28/17 11:15 10/29/17 05:53 (Purinethol) 50 mg DAILY PO 10/28/17 11:15 10/29/17 09:11 (Deltasone) 10 mg DAILY PO 10/28/17 11:15 10/29/17 09:15 (Zoloft) 50 mg DAILY PO 10/28/17 11:15 10/29/17 09:11 (Aldactone) 25 mg DAILY PO 10/29/17 09:00 Future Hold (Lactulose Liq) 30 ml QID PO 10/28/17 13:00 10/29/17 09:09 (Flu (Quadrivalent) Vaccine Inj) 0.5 ml ONCE ONCE IM 10/29/17 10:00 10/29/17 10:01 A/P Problem List: (1) Cirrhosis of liver with ascites ICD Code: K74.60 - Cirrhosis of liver with ascites Status: Acute Permanent Comment: No ammonia - brittle diabetes Dr Etienne - EGD - Chari Berry 12/22 Chari Berry without active bleeding, esophagitis. Colonoscopy - 12/22 - polyp Last Edited By: Zia Self on Mar 05, 2015 15:25 (2) OSVALDO (acute kidney injury) ICD Code: N17.9 - Acute kidney failure, unspecified Status: Acute Assessment and Plan 67-year-old female with a past medical history significant for autoimmune hepatitis, cirrhosis managed with frequent paracentesis, diabetes mellitus, hypothyroidism, hypertension, hyperlipidemia and glaucoma presents to the emergency department with worsening ascites. Recurrent Ascites with Abdominal Pain/Nausea/Vomiting: secondary to Cirrhosis with Autoimmune Hepatitis. Recent admit, s/p paracentesis on 10/16, removed 6200cc. -Abdominal U/S shows moderate to large ascites -CXR reviewed, shows no change in linear infiltrate with RLL, likely secondary to chronic ascites, patient without any cough/fevers -S/p U/S guided paracentesis on 10/28, removed 6.3L -Advance Diet as tolerated, patient tolerating well, symptoms much improved -Continued home lactulose however holding spironolactone with hyperkalemia and holding hctz with OSVALDO OSVALDO on CKD stage III: Cr 2.04, previously 1.41 on 10/19/17. Likely secondary to dehydration with recent nausea/vomiting and poor oral intake. -caution with diuresis -avoid nephrotoxins, holding home HCTZ -cannot give IVF at this time due to volume overload/ascites as above -monitor BMP, slowly improving Hyperkalemia: K 6.2 upon arrival, likely secondary to dehydration -repeat BMP shows improvement with K 5.4 -holding patient's aldactone -continue to monitor -repeat labs today pending Diabetes Mellitus: chronic, patient with very labile blood glucose on prior admissions -continue patient's home Levemir, patient takes 20u in am, 10u in pm -monitor Accu-checks and cover with SSI Hypertension: chronic, BP fairly well controlled currently -restart patient's home meds including amlodipine, clonidine; holding hctz for now with OSVALDO -monitor BP, adjust antihypertensives as needed Hypothyroidism: chronic -continue patient's Synthroid Temporal Arteritis: chronic -continue patient's home prednisone 10mg daily DVT Prophylaxis: teds/SCDs Discharge Planning Likely discharge later today if BMP improves, BG improves, and tolerating oral intake. 1610hrs: BMP resulted, much improved with K 4.4 and Cr 1.5. Blood glucose also much improved in the 100s. Patient tolerating oral intake. Stable for discharge. Discharge patient to home Condition on discharge: Stable Diabetic Diet as tolerated Ad Nila activity Rx written: no new meds Follow-up with primary care physician and nut packer Lela Toure PA-C Oct 29, 2017 09:30
[2017-10-29 09:33] VITALS: BP 118/70; PULSE 85; RESP 18; TEMP 98.6; O2SAT 98
--- NOTE | 2017-10-29 09:35 | HHI.DCPOC ---
Discharge Care Plan Diagnosis: (1) Cirrhosis of liver with ascites (2) HTN (hypertension) (3) Hyperkalemia (4) Insulin dependent diabetes mellitus Goals to Promote Your Health * To prevent worsening of your condition and complications * To maintain your health at the optimal level Directions to Meet Your Goals Take your medications as prescribed Follow your dietary instruction Follow activity as directed Keep your appointments as scheduled Take your immunizations and boosters as scheduled If your symptoms worsen call your PCP, if no PCP go to Urgent Care Center or Emergency Room Smoking is Dangerous to Your Health. Avoid second hand smoke Call the 24-hour hour crisis hotline for domestic abuse at Lela Raymond PA-C Oct 29, 2017 9:35 am
[2017-10-29] MEDS ORDERED: INFLUENZA VIRUS VACCINE (QUADRIVALENT) 0.5 ML SYR IM ONE (10:00)
[2017-10-29 11:26] LABS: BICARBONATE 27.9 MEQ/L (21.0-32.0); CALCIUM 8.5 MG/DL (8.5-10.1); CREATININE 1.59 MG/DL (0.50-1.00)
[2017-10-29 13:17] VITALS: BP 111/62; PULSE 81; RESP 18; TEMP 98.5; O2SAT 95
== END 2017-10-29 19:18 | disposition home or self-care (01) | DRG 433 ==
LOC: NED 16:19 → NEDA 23:54 → NEDH 10-28 04:21 → OBSVTOIN 10-28 04:50 → NEPHCDU 10-28 13:36
PROVIDERS: ADMIT Hospitalist; ATTEND Hospitalist
PROC: 0W9G3ZZ Drainage of Peritoneal Cavity, Percutaneous Approach (ICD-10-PCS; principal; 2017-10-28)
DX: K74.60 Unspecified cirrhosis of liver (principal); R18.8 Other ascites; N17.9 Acute kidney failure, unspecified; E11.22 Type 2 diabetes mellitus with diabetic chronic kidney disease; E87.5 Hyperkalemia; M31.6 Other giant cell arteritis; K75.4 Autoimmune hepatitis; M19.90 Unspecified osteoarthritis, unspecified site; I45.10 Unspecified right bundle-branch block; E78.5 Hyperlipidemia, unspecified; E86.0 Dehydration; I12.9 Hypertensive chronic kidney disease with stage 1 through stage 4 chronic kidney disease, or unspecified chronic kidney disease; R11.2 Nausea with vomiting, unspecified; H40.9 Unspecified glaucoma; E03.9 Hypothyroidism, unspecified; F32.9 Major depressive disorder, single episode, unspecified; F41.9 Anxiety disorder, unspecified; Z79.4 Long term (current) use of insulin; Z88.0 Allergy status to penicillin; Z88.1 Allergy status to other antibiotic agents; Z88.2 Allergy status to sulfonamides; Z88.5 Allergy status to narcotic agent
CPT/HCPCS: 49083; 71046; 76705; 76937; 80048; 80053; 82948; 85025; 85610; 85730; 99285; C1729; J0610; J1815; J2405; J7512; P9047

== ENCOUNTER 2017-11-01 15:26 | Inpatient (IN) | payer OTHER, MEDICAID, MEDICARE ==
[~2017-11-01] VITALS: Ht 157.5 cm; Wt 53.0 kg
[~2017-11-01 15:26] MED LIST changes: -PANT40TA3 PO
[2017-11-01 15:39] VITALS: BP 143/76; PULSE 107; RESP 18; TEMP 98.9; O2SAT 97
[2017-11-01 16:52] LABS: AUTOMATED NEUTROPHIL # 4.5 TH/MM3 (1.8-7.7); BASOPHIL % 0.5 % (0.0-2.0); EOSINOPHIL % 0.3 % (0.0-4.0); HEMOGLOBIN 12.2 GM/DL (11.6-15.3); LYMPH % 10.1 % (9.0-44.0); LYMPHOCYTE # 0.6 TH/MM3 (1.0-4.8); MEAN CELL VOLUME 96.6 FL (80.0-100.0); MEAN CORPUSCULAR HEMOGLOBIN 32.6 PG (27.0-34.0); MEAN CORPUSCULAR HGB CONC 33.8 % (32.0-36.0); MONO % 7.7 % (0.0-8.0); MONOCYTE # 0.4 TH/MM3 (0-0.9); NEUT % 81.4 % (16.0-70.0); PLATELET COUNT 324 TH/MM3 (150-450); RED BLOOD COUNT 3.72 MIL/MM3 (4.00-5.30); RED CELL DISTRIBUTION WIDTH 17.3 % (11.6-17.2); WHITE BLOOD COUNT 5.5 TH/MM3 (4.0-11.0)
[2017-11-01 17:07] LABS: ALBUMIN 2.2 GM/DL (3.4-5.0); AST (GOT) 60 U/L (15-37); BICARBONATE 27.4 MEQ/L (21.0-32.0); BLOOD UREA NITROGEN 54 MG/DL (7-18); CHLORIDE 95 MEQ/L (98-107); CREATININE 1.74 MG/DL (0.50-1.00); GLOMERULAR FILTRATION RATE 29 ML/MIN (>89); GLUCOSE,RANDOM 245 MG/DL (74-106); SODIUM (NA) 135 MEQ/L (136-145)
[2017-11-01 17:15] LABS: ALKALINE PHOSPHATASE 377 U/L (45-117); ALT (GPT) 41 U/L (10-53); TOTAL BILIRUBIN ADULT 0.9 MG/DL (0.2-1.0); TOTAL PROTEIN 7.5 GM/DL (6.4-8.2)
[2017-11-01] MEDS ORDERED: LOSA25TA PO (17:26)
--- NOTE | 2017-11-01 17:32 | PD ---
HPI Chief Complaint: Abdominal Pain Time Seen by Provider: 17:26 Travel History International Travel<30 days: No Contact w/Intl Traveler<30days: No Traveled to known affect area: No History of Present Illness HPI Patient comes in complaining of ongoing nausea vomiting with any ingestion of food or even water. She states that her abdomen when she was admitted was much more tense and distended, but after the procedure she has been doing better. However she continues to have this nausea and vomiting as well. Patient denies any associated abdominal pain. But the main thing that is bothering her is that she is not able to tolerate p.o. Stated that she got better while she was in the hospital but over the last 2 days she has been getting worse. Her daughter brings her and states the same and corroborates her story. Since this the weekend the patient has not being able to contact Drs. olson who is her GI doctor. However she has been referred to the [facility] for further evaluation and care. Patient and daughter are both just bleeding tubal have this stopped, she cannot continue living in this way, where she goes through these waves of inability to tolerate any p.o., and ongoing nausea and vomiting cycles. It is noted that family as well as patient are both frustrated, however a advised the patient and the family that this is the nature of the chronic condition that she has. 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, GERD, colitis, inflammatory bowel disease, appendectomy, hysterectomy, PFSH Past Medical History Hx Anticoagulant Therapy: Yes (ASPIRIN 81mg) Arthritis: Yes Asthma: No Autoimmune Disease: Yes (HEPATITIS) Blood Disorders: No Anxiety: Yes Depression: Yes Heart Rhythm Problems: Yes (RBBB) Cancer: No Cardiovascular Problems: Yes High Cholesterol: Yes Chemotherapy: No Chest Pain: Yes Congestive Heart Failure: No Cirrhosis: Yes COPD: No Cerebrovascular Accident: No Diabetes: Yes Patient Takes Glucophage: No Diminished Hearing: No Endocrine: Yes Gastrointestinal Disorders: Yes (liver cirrhosis, Ascitis) GERD: No Genitourinary: No Headaches: Yes Hepatitis: Yes (AUTOIMMUNE) Hypertension: Yes Immune Disorder: Yes (autoimmune hepatitis) Implanted Vascular Access Dvce: No Musculoskeletal: Yes (uses walker) Neurologic: No Psychiatric: No Reproductive: Yes (ckd) Respiratory: No Immunizations Current: Yes Radiation Therapy: No Renal Failure: Yes (acute/chronic kidney disease) Seizures: No Sleep Apnea: No Thyroid Disease: Yes Menopausal: Yes Ovarian Cysts: Yes (1985) Past Surgical History Abdominal Surgery: Yes (paracenthesis) Appendectomy: Yes Gynecologic Surgery: Yes (HYSTERECTOMY ) Hysterectomy: Yes Pacemaker: No Other Surgery: Yes (LIVER/BREAST BIOPSY 2005) Social History Alcohol Use: No Tobacco Use: No Substance Use: No Allergies-Medications (Allergen,Severity, Reaction): Coded Allergies: doxycycline (Verified Allergy, Severe, Rash, 11/01/17) minocycline (Verified Allergy, Severe, Rash, 11/01/17) morphine (Verified Allergy, Severe, Rash, 11/01/17) penicillin G (Verified Allergy, Severe, Rash, 11/01/17) tigecycline (Verified Allergy, Severe, Rash, 11/01/17) Sulfa (Sulfonamide Antibiotics) (Verified Allergy, Unknown, Rash, 11/01/17) clindamycin (Verified Allergy, Unknown, Nausea/Vomiting, 11/01/17) Reported Meds & Prescriptions Reported Meds & Active Scripts Active Zofran Odt (Ondansetron Odt) 8 Mg Tab 8 Mg SL Q8H PRN [Lactulose Liq] 30 ML Syrp 30 Ml PO QID Amlodipine (Amlodipine Besylate) 2.5 Mg Tab 2.5 Mg PO DAILY Hydrochlorothiazide 12.5 Mg Cap 12.5 Mg PO DAILY Spironolactone 25 Mg Tab 25 Mg PO DAILY Prednisone 10 Mg Tab 10 Mg PO DAILY 30 Days Clonidine (Clonidine HCl) 0.1 Mg Tab 0.1 Mg PO BID Zoloft (Sertraline HCl) 50 Mg Tab 50 Mg PO DAILY Reported Losartan (Losartan Potassium) 25 Mg Tab 25 Mg PO DAILY Xalatan Opth Drops (Latanoprost) 0.005% Drops 1 Drop EACH EYE HS Levemir Inj (Insulin Detemir) 1,000 unit/ 10 ML Vial 20 Units SQ BID Do not mix with any other Insulin. Levothyroxine (Levothyroxine Sodium) 88 Mcg Tab 88 Mcg PO DAILY Novolog Inj (Insulin Aspart) 1,000 Unit/10 Ml Vial 0 SQ DIRECTED Sliding Scale as directed. C-500 (Ascorbic Acid) 500 Mg Tab.chew 500 Mg PO DAILY Vitamin D3 (Cholecalciferol) 1,000 Unit Tab 1,000 Units PO DAILY Mercaptopurine 50 Mg Tab 50 Mg PO DAILY Review of Systems General / Constitutional: No: Fever Eyes: No: Visual changes HENT: No: Headaches Cardiovascular: No: Chest Pain or Discomfort Respiratory: No: Shortness of Breath Gastrointestinal: Positive: Abdominal Pain Genitourinary: No: Dysuria Musculoskeletal: No: Pain Skin: No Rash Neurologic: No: Weakness Psychiatric: No: Depression Endocrine: No: Polydipsia Hematologic/Lymphatic: No: Easy Bruising Physical Exam Narrative GENERAL: SKIN: Warm and dry. HEAD: Atraumatic. Normocephalic. EYES: Pupils equal and round. No scleral icterus. No injection or drainage. ENT: No nasal bleeding or discharge. Mucous membranes pink and moist. NECK: Trachea midline. No JVD. CARDIOVASCULAR: Regular rate and rhythm. RESPIRATORY: No accessory muscle use. Clear to auscultation. Breath sounds equal bilaterally. GASTROINTESTINAL: Abdomen soft, non-tender, nondistended. MUSCULOSKELETAL: Extremities without clubbing, cyanosis, or edema. No obvious deformities. NEUROLOGICAL: Awake and alert. No obvious cranial nerve deficits. Motor grossly within normal limits. Five out of 5 muscle strength in the arms and legs. Normal speech. PSYCHIATRIC: Appropriate mood and affect; insight and judgment normal. Data Data Last Documented VS Vital Signs Date Time Temp Pulse Resp B/P (MAP) Pulse Ox O2 Delivery O2 Flow Rate FiO2 11/01/17 19:28 101 17 132/65 (87) 98 Room Air 11/01/17 15:39 98.9 Orders Orders Complete Blood Count With Diff (11/01/17 15:44) Comprehensive Metabolic Panel (11/01/17 15:44) Urinalysis - C+S If Indicated (11/01/17 15:44) Iv Access Insert/Monitor (11/01/17 15:44) Lipase (11/01/17 15:44) Ct Abd/Pel W/O Iv Contrast (11/01/17 17:36) Ecg Monitoring (11/01/17 17:36) Oximetry (11/01/17 17:36) NPO (11/01/17 17:36) Ondansetron Inj (Zofran Inj) (11/01/17 17:45) Sodium Chloride 0.9% Flush (Ns Flush) (11/01/17 17:45) Ketorolac Inj (Toradol Inj) (11/01/17 17:45) Hydromorphone Pf Inj (Dilaudid Pf Inj) (11/01/17 18:30) Ns (Bolus) Inj (11/01/17 20:30) Labs Laboratory Tests Test 11/01/17 16:00 White Blood Count 5.5 TH/MM3 Red Blood Count 3.72 MIL/MM3 Hemoglobin 12.2 GM/DL Hematocrit 36.0 % Mean Corpuscular Volume 96.6 FL Mean Corpuscular Hemoglobin 32.6 PG Mean Corpuscular Hemoglobin Concent 33.8 % Red Cell Distribution Width 17.3 % Platelet Count 324 TH/MM3 Mean Platelet Volume 9.0 FL Neutrophils (%) (Auto) 81.4 % Lymphocytes (%) (Auto) 10.1 % Monocytes (%) (Auto) 7.7 % Eosinophils (%) (Auto) 0.3 % Basophils (%) (Auto) 0.5 % Neutrophils # (Auto) 4.5 TH/MM3 Lymphocytes # (Auto) 0.6 TH/MM3 Monocytes # (Auto) 0.4 TH/MM3 Eosinophils # (Auto) 0.0 TH/MM3 Basophils # (Auto) 0.0 TH/MM3 CBC Comment DIFF FINAL Differential Comment Blood Urea Nitrogen 54 MG/DL Creatinine 1.74 MG/DL Random Glucose 245 MG/DL Total Protein 7.5 GM/DL Albumin 2.2 GM/DL Calcium Level 9.0 MG/DL Alkaline Phosphatase 377 U/L Aspartate Amino Transf (AST/SGOT) 60 U/L Alanine Aminotransferase (ALT/SGPT) 41 U/L Total Bilirubin 0.9 MG/DL Sodium Level 135 MEQ/L Potassium Level 5.6 MEQ/L Chloride Level 95 MEQ/L Carbon Dioxide Level 27.4 MEQ/L Anion Gap 13 MEQ/L Estimat Glomerular Filtration Rate 29 ML/MIN Lipase 58 U/L MDM Medical Decision Making Medical Screen Exam Complete: Yes Emergency Medical Condition: Yes Medical Record Reviewed: Yes Differential Diagnosis Liver disease versus pancreatitis versus colitis versus diverticular disease versus microperforation versus perforation versus SBO versus ileus Narrative Course Chemistry shows sodium 135 potassium 5.6 chloride 95 BUN and creatinine are normal 54/1.74 however patient is known to be a chronic renal patient. Also the potassium is only slightly elevated. LFTs are mildly elevated with an AST of 60 and an ALT of 41 alk phos is 377 but with a normal bilirubin. Also normal pancreatic enzymes CBC shows no leukocytosis, no anemia, normal platelet count, and slight neutrophilia of 81% Diagnosis Primary Impression: Dehydration Additional Impression: Intractable vomiting with nausea Qualified Codes: R11.2 - Nausea with vomiting, unspecified Admitting Information Admitting Physician Requests: Observation August Gates MD Nov 01, 2017 17:32
[2017-11-01 17:34] VITALS: BP 137/78; PULSE 105; RESP 18; O2SAT 98
[2017-11-01] MEDS ORDERED: ONDANSETRON HCL 4 MG/2 ML VIAL IVP ONE (17:45)
[2017-11-01] MEDS ORDERED: SODIUM CHLORIDE 0.9% FLUSH 10 ML FLUSH IV FLUSH PRN ×2 (17:45→20:30)
[2017-11-01] MEDS ORDERED: KETOROLAC TROMETHAMINE 30 MG/ML (IVP) VIAL IVP ONE (17:45)
[2017-11-01] MEDS ORDERED: HYDROmorphone HCL PF 2 MG/ML VIAL IV PUSH ONE (18:30)
[2017-11-01 19:28] VITALS: BP 132/65; PULSE 101; RESP 17; O2SAT 98
--- NOTE | 2017-11-01 19:56 | RADRPT ---
EXAM DATE/TIME: 11/01/2017 19:35 [facility] COMPARISON: CT ABDOMEN & PELVIS W CONTRAST, October 07, 2017, 17:00. CT ABDOMEN & PELVIS W/O CONTRAST, December 12, 2014, 15:11. INDICATIONS : Abdominal pain, nausea and vomiting X one month; increasing pain in the last week. ORAL CONTRAST: No oral contrast ingested. RADIATION DOSE: 4.87 CTDIvol (mGy) MEDICAL HISTORY : Cardiovascular disease. Hypertension. Renal failure, chronic.GERD, Diabetes, Hepatitis, Cirrhosis SURGICAL HISTORY : Appendectomy. Hysterectomy. ENCOUNTER: Initial ACUITY: 1 month PAIN SCALE: 7/10 LOCATION: abdomen TECHNIQUE: Volumetric scanning of the abdomen and pelvis was performed. Using automated exposure control and ad justment of the mA and/or kV according to patient size, radiation dose was kept as low as reasonably achievable to obtain optimal diagnostic quality images. DICOM format image data is available electro nically for review and comparison. FINDINGS: Minimal probable changes right lung base. Marked tense ascites with small shrunken liver The spleen and pancreas are normal size Scattered stool throughout the colon Right and left kidneys are unremarkable Moderate vascular calcifications Pelvic contents are unremarkable Review of bone was reveals only degenerative changes. CONCLUSION: Moderate ascites the small shrunken liver stable from the previous exam. Marco Chaudhari MD FACR on November 01, 2017 at 19:52 Board Certified Radiologist. This report was verified electronically.
[2017-11-01] MEDS ORDERED: GLUCAGON 1 MG/ML VIAL OTHER PRN (20:30)
[2017-11-01] MEDS ORDERED: SODIUM CHLORID 0.9% 500 ML INJ 500 ML IV ONE (20:30)
[2017-11-01] MEDS ORDERED: DEXTROSE 50% IN WATER 50 ML VIAL(D50) IV PUSH PRN (20:30)
[2017-11-01] MEDS ORDERED: BISACODYL 10 MG SUPP RECTAL PRN (20:30)
[2017-11-01] MEDS ORDERED: MAGNESIUM HYDROXIDE SUSP 30 ML CUP PO PRN (20:30)
[2017-11-01] MEDS ORDERED: LACTULOSE SYRUP 20 GM/30 ML CUP PO PRN (20:30)
[2017-11-01] MEDS ORDERED: SENNOSIDES 8.6 MG TAB PO PRN (20:30)
--- NOTE | 2017-11-01 20:33 | HHI.HP ---
[facility], Admission Diagnosis INTRACTABLE N/V, HEPATORENAL SYNDROME, AUTOIMMUNE HEPATITIS Diagnoses: (1) Intractable nausea and vomiting Diagnosis: Principal (2) Ascites Diagnosis: Principal (3) Autoimmune hepatitis Diagnosis: Principal (4) Hyperkalemia Diagnosis: Principal (5) Renal insufficiency Diagnosis: Principal (6) DM (diabetes mellitus) Diagnosis: Principal Travel History International Travel<30 Days: No Contact w/Intl Traveler <30 Da: No Traveled to Known Affected Are: No History of Present Illness This is a 67-year-old female with a PMH of HTN, Hyperlipidemia, Autoimmune Hepatitis, Cirrhosis, Recurrent Ascites, Anxiety, Depression, CKD and DM who presented to the ER with complaints of dizziness in addition to nausea and vomiting for approx 2 days. Recent admit 10/28-10/29/17 for ascites requiring paracentesis, s/p 6L removed. Denies significant abdominal distention/ascites at this time. No diarrhea, no fever, no chills. On arrival, BP 137/78, HR 105 , O2 sat 98% on RA, Afebrile. CBC at baseline. K+ 5.6. Creatinine 1.74, previously 1.59 on 10/29/2017. LFTs at baseline. CT Abdomen/Pelvis with moderate ascites, small shrunken liver stable from previous exam. s/p IVF, Dilaudid, Toradol and Zofran with persistent symptoms. Review of Systems Except as stated in HPI: all other systems reviewed are Neg ROS: 14 point review of systems otherwise negative. Past Family Social History Past Medical History PMH: HTN, Hyperlipidemia, Autoimmune Hepatitis, Cirrhosis, Recurrent Ascites, Anxiety, Depression, CKD and DM Past Surgical History PAST SURGICAL HISTORY: Appendectomy, Hysterectomy, Liver/Breast Biopsy Allergies: Coded Allergies: doxycycline (Verified Allergy, Severe, Rash, 11/01/17) minocycline (Verified Allergy, Severe, Rash, 11/01/17) morphine (Verified Allergy, Severe, Rash, 11/01/17) penicillin G (Verified Allergy, Severe, Rash, 11/01/17) tigecycline (Verified Allergy, Severe, Rash, 11/01/17) Sulfa (Sulfonamide Antibiotics) (Verified Allergy, Unknown, Rash, 11/01/17) clindamycin (Verified Allergy, Unknown, Nausea/Vomiting, 11/01/17) Family History PAST FAMILY HISTORY: Reviewed. No h/o DM or CAD Social History PAST SOCIAL HISTORY: Negative for alcohol, tobacco or drugs. Physical Exam Vital Signs Vital Signs Date Time Temp Pulse Resp B/P (MAP) Pulse Ox O2 Delivery O2 Flow Rate FiO2 11/01/17 19:28 101 17 132/65 (87) 98 Room Air 11/01/17 19:28 17 98 Room Air 11/01/17 17:34 105 18 137/78 (97) 98 Room Air 11/01/17 17:27 18 11/01/17 15:39 98.9 107 18 143/76 (98) 97 Physical Exam PE: GENERAL: Very pleasant middle-aged white female in no acute distress. HEENT: PERRLA, EOMI. No scleral icterus or conjunctival pallor. No lid lag or facial droop. CARDIOVASCULAR: Regular rate and rhythm. No obvious murmurs to auscultation. No chest tenderness to palpation. RESPIRATORY: No obvious rhonchi or wheezing. Clear to auscultation. Breath sounds equal bilaterally. GASTROINTESTINAL: Abdomen soft, mild abdominal distention, no tenderness to palpation. BS normal. MUSCULOSKELETAL: Extremities without clubbing, cyanosis, or edema. No obvious deformities. NEUROLOGICAL: Awake, alert and oriented x4. No focal neurologic deficits. Moving both upper and lower extremities spontaneously. Laboratory Laboratory Tests Test 11/01/17 16:00 White Blood Count 5.5 Red Blood Count 3.72 Hemoglobin 12.2 Hematocrit 36.0 Mean Corpuscular Volume 96.6 Mean Corpuscular Hemoglobin 32.6 Mean Corpuscular Hemoglobin Concent 33.8 Red Cell Distribution Width 17.3 Platelet Count 324 Mean Platelet Volume 9.0 Neutrophils (%) (Auto) 81.4 Lymphocytes (%) (Auto) 10.1 Monocytes (%) (Auto) 7.7 Eosinophils (%) (Auto) 0.3 Basophils (%) (Auto) 0.5 Neutrophils # (Auto) 4.5 Lymphocytes # (Auto) 0.6 Monocytes # (Auto) 0.4 Eosinophils # (Auto) 0.0 Basophils # (Auto) 0.0 CBC Comment DIFF FINAL Differential Comment Blood Urea Nitrogen 54 Creatinine 1.74 Random Glucose 245 Total Protein 7.5 Albumin 2.2 Calcium Level 9.0 Alkaline Phosphatase 377 Aspartate Amino Transf (AST/SGOT) 60 Alanine Aminotransferase (ALT/SGPT) 41 Total Bilirubin 0.9 Sodium Level 135 Potassium Level 5.6 Chloride Level 95 Carbon Dioxide Level 27.4 Anion Gap 13 Estimat Glomerular Filtration Rate 29 Lipase 58 Result Diagram: 11/01/17 1600 11/01/17 1600 [place] VTE Risk Assessment Caprini VTE Risk Assessment: No/Low Risk (score <= 1) Caprini Risk Assessment Model Point Value = 1 Point Value = 2 Point Value = 3 Point Value = 5 Age 41-60 Minor surgery BMI > 25 kg/m2 Swollen legs Varicose veins or History of unexplained or recurrent spontaneous Oral contraceptives or hormone replacement Sepsis (< 1 month) Serious lung disease, including pneumonia (< 1 month) Abnormal pulmonary function Acute myocardial infarction Congestive heart failure (< 1 month) History of inflammatory bowel disease Medical patient at bed rest Age 61-74 Arthroscopic surgery Major open surgery (> 45 min) Laparoscopic surgery (> 45 min) Malignancy Confined to bed (> 72 hours) Immobilizing plaster cast Central venous access Age >= 75 History of VTE Family history of VTE Factor V Leiden Prothrombin [id number] Lupus anticoagulant Anticardiolipin antibodies Elevated serum homocysteine Heparin-induced thrombocytopenia Other congenital or acquired thrombophilia Stroke (< 1 month) Elective arthroplasty Hip, pelvis, or leg fracture Acute spinal cord injury (< 1 month) Prophylaxis Regimen Total Risk Factor Score Risk Level Prophylaxis Regimen 0-1 Low Early ambulation 2 Moderate Order ONE of the following: *Sequential Compression Device (SCD) *Heparin 5000 units SQ BID 3-4 Higher Order ONE of the following medications: *Heparin 5000 units SQ TID *Enoxaparin/Lovenox 40 mg SQ daily (WT < 150 kg, CrCl > 30 mL/min) *Enoxaparin/Lovenox 30 mg SQ daily (WT < 150 kg, CrCl > 10-29 mL/min) *Enoxaparin/Lovenox 30 mg SQ BID (WT < 150 kg, CrCl > 30 mL/min) AND/OR *Sequential Compression Device (SCD) 5 or more Highest Order ONE of the following medications: *Heparin 5000 units SQ TID (Preferred with Epidurals) *Enoxaparin/Lovenox 40 mg SQ daily (WT < 150 kg, CrCl > 30 mL/min) *Enoxaparin/Lovenox 30 mg SQ daily (WT < 150 kg, CrCl > 10-29 mL/min) *Enoxaparin/Lovenox 30 mg SQ BID (WT < 150 kg, CrCl > 30 mL/min) AND *Sequential Compression Device (SCD) Assessment and Plan Problem List: (1) Autoimmune hepatitis ICD Code: K75.4 - Autoimmune hepatitis Status: Acute Permanent Comment: 07/24/16: Evaluated at [facility] for liver transplant. Declined, too early for transplant. 06/09/16: UGD_minimal grade 1 esophageal viruses, normal stomach, normal examined duodenum Colonoscopy: one 3 mm polyp in the transverse colon, ( hyperplastic polyp), examination, otherwise normal. MRI abdomen without plus with/CSY: Cirrhotic hepatic morphology. No suspicious lipid lesions. Conventional hepatic arterial anatomy. Portal veins and hepatic veins are patent. Prominent portal-systemic collateral veins about the EEG junction. Patent paraumbilical collateral. Splenomegaly. Trace ascites. Adult transthoracic echocardiogram: EF 70%. Normal global and regional left ventricular systolic function. Normal left ventricular diastolic function. Last Edited By: Naa Enrique on Jul 29, 2016 08:32 (2) Intractable nausea and vomiting ICD Code: R11.2 - Nausea with vomiting, unspecified (3) Ascites ICD Code: R18.8 - Other ascites (4) Hyperkalemia ICD Code: E87.5 - Hyperkalemia (5) Renal insufficiency ICD Code: N28.9 - Disorder of kidney and ureter, unspecified (6) DM (diabetes mellitus) ICD Code: E11.9 - Type 2 diabetes mellitus without complications Assessment and Plan A/P: 1. Autoimmune Hepatitis: follows w/ Dr. Etienne as outpatient, will consult for further recommendations. Resume home Mercaptopurine, Aldactone, Prednisone. 2. Ascites: Recurrent. CT Abd/Pelvis w/ moderate ascites, images reviewed by me, on exam abdomen is soft, +distention but no need for urgent paracentesis. Monitor I/O, resume home medications. 3. Renal Insufficiency: Creatinine 1.74, previously 1.59. IVF for hydration- caution w/ cirrhosis/ascites, monitor I/O. Repeat labs in am. 4. Intractable NV: c/o dizziness, nausea/vomiting. IVF, Zofran/Compazine, Ativan/Meclizine prn 5. DM: Sliding scale w/ Accu-Cheks. Hold Insulin as not taking adequate PO due to NV. 6. DVT Prophylaxis: SCD/Teds. 7. Social work for d/c planning as needed 8. Case discussed w/ ER physician at length, labs/records/imaging reviewed by me. Iesha Brock MD Nov 01, 2017 20:33
[2017-11-01] MEDS ORDERED: MECLIZINE HCL 25 MG TAB PO PRN (21:00)
[2017-11-01] MEDS ORDERED: FAMOTIDINE 20 MG/2 ML VIAL IV PUSH SCH (21:00)
[2017-11-01] MEDS ORDERED: LORazepam 2 MG/ML VIAL IV PUSH PRN (21:00)
[2017-11-01] MEDS ORDERED: DEXT 5%-NACL 0.9% 500 ML INJ 500 ML IV ONE (21:00)
[2017-11-01] MEDS ORDERED: oxyCODONE HCL 10 MG CONTROLLED RELEASE TAB PO PRN (21:00)
[2017-11-01 21:47] VITALS: BP 130/71; PULSE 98; RESP 18; TEMP 96.3; O2SAT 95
[2017-11-01] MEDS: INSULIN ASPART SUPPLEMENTAL SCALE SQ SCH (22:00)
[2017-11-01] MEDS: cloNIDine HCL 0.1 MG TAB PO SCH (22:00)
[2017-11-01] MEDS: DOCUSATE SODIUM 50 MG/SENNA 8.6 MG TAB PO SCH (22:00)
[2017-11-01] MEDS: SODIUM CHLORIDE 0.9% FLUSH 10 ML FLUSH IV FLUSH SCH (22:01)
[2017-11-01] MEDS: LATANOPROST 0.005% OPHT SOLN 2.5 ML BTL EACH EYE SCH (23:13)
[2017-11-02 00:06] VITALS: BP 124/68; PULSE 81; RESP 18; TEMP 96.8; O2SAT 95
[2017-11-02 03:51] VITALS: BP 110/61; PULSE 82; RESP 18; TEMP 95.9; O2SAT 95
[2017-11-02 04:18] LABS: AUTOMATED NEUTROPHIL # 3.1 TH/MM3 (1.8-7.7); BASOPHIL % 0.7 % (0.0-2.0); EOSINOPHIL % 0.5 % (0.0-4.0); HEMATOCRIT 30.6 % (35.0-46.0); HEMOGLOBIN 10.4 GM/DL (11.6-15.3); LYMPH % 15.5 % (9.0-44.0); LYMPHOCYTE # 0.7 TH/MM3 (1.0-4.8); MEAN CELL VOLUME 96.2 FL (80.0-100.0); MEAN CORPUSCULAR HEMOGLOBIN 32.7 PG (27.0-34.0); MEAN CORPUSCULAR HGB CONC 33.9 % (32.0-36.0); MEAN PLATELET VOLUME 8.5 FL (7.0-11.0); MONO % 13.9 % (0.0-8.0); MONOCYTE # 0.6 TH/MM3 (0-0.9); NEUT % 69.4 % (16.0-70.0); PLATELET COUNT 256 TH/MM3 (150-450); RED BLOOD COUNT 3.18 MIL/MM3 (4.00-5.30); RED CELL DISTRIBUTION WIDTH 17.2 % (11.6-17.2); WHITE BLOOD COUNT 4.5 TH/MM3 (4.0-11.0)
[2017-11-02 04:29] LABS: INTERNATIONAL NORMALIZED RATIO 1.1 RATIO; PROTHROMBIN TIME - PATIENT 11.4 SEC (9.8-11.6)
[2017-11-02 04:51] LABS: ALBUMIN 1.9 GM/DL (3.4-5.0); ALKALINE PHOSPHATASE 315 U/L (45-117); ALT (GPT) 33 U/L (10-53); AST (GOT) 39 U/L (15-37); BICARBONATE 25.4 MEQ/L (21.0-32.0); BLOOD UREA NITROGEN 61 MG/DL (7-18); CALCIUM 8.2 MG/DL (8.5-10.1); CHLORIDE 100 MEQ/L (98-107); CREATININE 2.13 MG/DL (0.50-1.00); GLOMERULAR FILTRATION RATE 23 ML/MIN (>89); GLUCOSE,RANDOM 217 MG/DL (74-106); SODIUM (NA) 136 MEQ/L (136-145); TOTAL BILIRUBIN ADULT 0.7 MG/DL (0.2-1.0); TOTAL PROTEIN 6.5 GM/DL (6.4-8.2)
[2017-11-02] MEDS: LEVOTHYROXINE SODIUM 88 MCG TAB PO SCH (05:32)
[2017-11-02 08:24] VITALS: BP 99/57; PULSE 76; RESP 16; TEMP 98.7; O2SAT 96
[2017-11-02] MEDS: amLODIPine BESYLATE 5 MG TAB PO SCH (09:00)
[2017-11-02] MEDS: cloNIDine HCL 0.1 MG TAB PO SCH ×2 (09:00→20:43)
[2017-11-02] MEDS: SPIRONOLACTONE 25 MG TAB PO SCH (09:00)
--- NOTE | 2017-11-02 09:35 | HHI.PR ---
Subjective Remarks Follow up for intractable nausea/vomiting. The patient reports continued intermittent nausea but no vomiting today. She is concerned that food is getting stuck with associated dysphagia. She reports history of EGD with dilatation. Her most recent EGD was on 10/08 which showed esophageal varices, hiatal hernia, and gastritis. The patient denies any bloody emesis or stools. She reports small hard pebble bowel movement yesterday. No melena/hematochezia. Denies fevers/chills. She reports occasional diffuse lower abdominal discomfort and cramping, currently with minimal discomfort. She does not feel as distended as a few days ago when she required paracentesis. She has no other medical complaints at this time. Objective Vitals Vital Signs Date Time Temp Pulse Resp B/P (MAP) Pulse Ox O2 Delivery O2 Flow Rate FiO2 11/02/17 08:24 98.7 76 16 99/57 (71) 96 11/02/17 03:51 95.9 82 18 110/61 (77) 95 11/02/17 00:06 96.8 81 18 124/68 (86) 95 11/01/17 21:53 11/01/17 21:47 96.3 98 18 130/71 (90) 95 11/01/17 19:28 101 17 132/65 (87) 98 Room Air 11/01/17 19:28 17 98 Room Air 11/01/17 17:34 105 18 137/78 (97) 98 Room Air 11/01/17 17:27 18 11/01/17 15:39 98.9 107 18 143/76 (98) 97 I/O 11/01/17 11/01/17 11/01/17 11/02/17 11/02/17 11/02/17 07:00 15:00 23:00 07:00 15:00 23:00 Intake Total 1000 ml 50 ml Balance 1000 ml 50 ml Intake Oral 50 ml IV Total 1000 ml # Voids 0 # Bowel Movements 0 Result Diagram: 11/02/1734411/02/17344 Objective Remarks GENERAL: Well-nourished, well-developed pleasant patient in NAD. SKIN: Warm and dry. No rash. HEENT: Normocephalic. Atraumatic. Pupils equal and round. Mucous membranes pink and moist. CARDIOVASCULAR: Regular rate and rhythm. S1, S2 noted. No murmur appreciated. RESPIRATORY: No accessory muscle use. Clear to auscultation. Breath sounds equal bilaterally. GASTROINTESTINAL: Abdomen soft, non-tender, nondistended but with minimal ascites. Normoactive bowel sounds x4. MUSCULOSKELETAL: No obvious deformities. Extremities without clubbing, cyanosis , or edema. NEUROLOGICAL: Awake and alert. No obvious cranial nerve deficits. Motor grossly within normal limits. Normal speech. PSYCHIATRIC: Appropriate mood and affect; insight and judgment normal. Medications and IVs Current Medications Medications (Trade) Dose Ordered Sig/Miranda Route Start Time Stop Time Status Last Admin (D50w (Vial) Inj) 50 ml UNSCH PRN IV PUSH 11/01/17 20:30 (Glucagon Inj) 1 mg UNSCH PRN OTHER 11/01/17 20:30 (NovoLOG SUPPLEMENTAL SCALE) 1 ACHS SLIDING SCALE SQ 11/01/17 21:00 11/02/17 11:07 (Compazine Inj) 10 mg Q4H PRN IV PUSH 11/01/17 20:30 (NS Flush) 2 ml UNSCH PRN IV FLUSH 11/01/17 20:30 (NS Flush) 2 ml BID IV FLUSH 11/01/17 21:00 11/02/17 11:06 (Zofran Inj) 4 mg Q6H PRN IVP 11/01/17 20:30 (Roxicodone) 5 mg Q4H PRN PO 11/01/17 20:30 (Sherlyn-Colace) 1 tab BID PO 11/01/17 21:00 11/02/17 11:06 (Milk Of Magnesia Liq) 30 ml Q12H PRN PO 11/01/17 20:30 (Senokot) 17.2 mg Q12H PRN PO 11/01/17 20:30 (Dulcolax Supp) 10 mg DAILY PRN RECTAL 11/01/17 20:30 (Lactulose Liq) 30 ml DAILY PRN PO 11/01/17 20:30 (Norvasc) 2.5 mg DAILY PO 11/02/17 09:00 (Catapres) 0.1 mg BID PO 11/01/17 21:00 11/01/17 22:00 (Xalatan 0.005% Opth Soln) 1 drop HS EACH EYE 11/01/17 21:00 11/01/17 23:13 (Synthroid) 88 mcg DAILY@0600 PO 11/02/17 06:00 11/02/17 05:32 (Deltasone) 10 mg DAILY PO 11/02/17 09:00 11/02/17 11:06 (Zoloft) 50 mg DAILY PO 11/02/17 09:00 11/02/17 11:06 (Aldactone) 25 mg DAILY PO 11/02/17 09:00 (Pepcid Inj) 10 mg Q12HR IV PUSH 11/01/17 21:00 11/01/17 22:00 (Ativan Inj) 0.5 mg Q2H PRN IV PUSH 11/01/17 21:00 11/01/17 21:36 (Antivert) 25 mg Q6HR PRN PO 11/01/17 21:00 (Roxicodone) 10 mg Q4H PRN PO 11/01/17 21:00 A/P Problem List: (1) Autoimmune hepatitis ICD Code: K75.4 - Autoimmune hepatitis Status: Acute Permanent Comment: 07/24/16: Evaluated at [facility] for liver transplant. Declined, too early for transplant. 06/09/16: UGD_minimal grade 1 esophageal viruses, normal stomach, normal examined duodenum Colonoscopy: one 3 mm polyp in the transverse colon, ( hyperplastic polyp), examination, otherwise normal. MRI abdomen without plus with/CSY: Cirrhotic hepatic morphology. No suspicious lipid lesions. Conventional hepatic arterial anatomy. Portal veins and hepatic veins are patent. Prominent portal-systemic collateral veins about the EEG junction. Patent paraumbilical collateral. Splenomegaly. Trace ascites. Adult transthoracic echocardiogram: EF 70%. Normal global and regional left ventricular systolic function. Normal left ventricular diastolic function. Last Edited By: Naa Enrique on Jul 29, 2016 8:32 am (2) Intractable nausea and vomiting ICD Code: R11.2 - Nausea with vomiting, unspecified (3) Ascites ICD Code: R18.8 - Other ascites (4) Hyperkalemia ICD Code: E87.5 - Hyperkalemia (5) Renal insufficiency ICD Code: N28.9 - Disorder of kidney and ureter, unspecified (6) DM (diabetes mellitus) ICD Code: E11.9 - Type 2 diabetes mellitus without complications Assessment and Plan 67-year-old female with a PMH of HTN, HLD, Autoimmune Hepatitis, Cirrhosis, Recurrent Ascites, Anxiety, Depression, CKD and DM who presented to the ER with complaints of dizziness in addition to nausea and vomiting for approx 2 days. Recent admit 10/28-10/29/17 for ascites requiring paracentesis, s/p 6L removed. Intractable Nausea/Vomiting with Dysphagia: unclear etiology. Hx of recent EGD on 10/08 showed esophageal varices, hiatal hernia, and gastritis. Also has hx of esophageal stricture and dilatation. -CT abd/pelvis 11/01 images reviewed, shows moderate ascites with small shrunken liver; stable from previous exam. -Give gentle IVF, caution with cirrhosis -Antiemetics prn and pain control prn -Consult GI, plan for repeat EGD tomorrow 11/03 Recurrent Ascites with Cirrhosis secondary to Autoimmune Hepatitis: s/p paracentesis on 10/16 and 10/28. -does not appear to have any significant ascites currently, last paracentesis 5 days ago -continue patient's home meds including lactulose qid, spironolactone, mercaptopurine. No lasix due to OSVALDO and soft BP. -caution with IVF OSVALDO on CKD stage III: Cr 2.13, baseline around 1.4. Likely secondary to dehydration with recent nausea/vomiting and poor oral intake. -give gentle IVF hydration -avoid nephrotoxins, holding home HCTZ and losartan -monitor BMP Hyperkalemia: K 5.6 upon arrival, likely secondary to dehydration, patient also on spironolactone -repeat BMP shows improvement with K 5.1 -continue to monitor Diabetes Mellitus: chronic, patient with very labile blood glucose on prior admissions -patient's takes Levemir 20u in am, 10u in pm, will give morning dose today, hold patient's evening dose tonight as she will be NPO for EGD tomorrow -monitor Accu-checks and cover with SSI Hypertension: chronic, BP fairly well controlled currently -restart patient's home meds including amlodipine, clonidine; holding hctz/ losartan for now with OSVALDO -monitor BP, adjust antihypertensives as needed Hypothyroidism: chronic -continue patient's Synthroid Temporal Arteritis: chronic -continue patient's home prednisone 10mg daily DVT Prophylaxis: teds/SCDs. Avoid chemoprophylaxis with upcoming procedure. Lela Raymond PA-C Nov 02, 2017 9:35 am
--- NOTE | 2017-11-02 11:02 | PD.CONS ---
HPI History of Present Illness This is a 67 year old F with PMH significant for DM, CKD, anxiety, autoimmune hepatitis, cirrhosis, recurrent ascites, hyperlipidemia, and HTN. Pt presented to the ER with multiple complaints, however the only new complaint is severe weakness progressing over the past couple days. States she has not been able to keep any food down and has vomited every time she has taken medication or food. The way she describes it sounds like part of it is regurgitation because she is unable to completely swallow due to dysphagia. Reports dysphagia with both solids and liquids, has had EGD with dilatation in the past for esophageal stricture. Also complaining of abdominal tenderness, states the distention does not actually seem to be that bad. Recent paracentesis done last week in which over 6 L of fluid was removed. States has had three total this month. Reports that the nausea and vomiting has been for over a month and that the paracentesis did not seem to help with symptoms. Denies hematemesis and coffee ground emesis. Recent EGD (10/08/16) --> Esophageal varices, hiatal hernia, gastritis. 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 Colonoscopy (10/12/17) --> Diverticulum in the sigmoid colon. Pt reports lower abdominal pain for multiple months as well as chronic constipation. Was previously taking Lactulose QID which was helping but has not been able to hold this down. (Patricia Castellon) PFSH Past Medical History PMH: HTN, Hyperlipidemia, Autoimmune Hepatitis, Cirrhosis, Recurrent Ascites, Anxiety, Depression, CKD and DM Past Surgical History PAST SURGICAL HISTORY: Appendectomy, Hysterectomy, Liver/Breast Biopsy (Patricia Castellon) Coded Allergies: doxycycline (Verified Allergy, Severe, Rash, 11/01/17) minocycline (Verified Allergy, Severe, Rash, 11/01/17) morphine (Verified Allergy, Severe, Rash, 11/01/17) penicillin G (Verified Allergy, Severe, Rash, 11/01/17) tigecycline (Verified Allergy, Severe, Rash, 11/01/17) Sulfa (Sulfonamide Antibiotics) (Verified Allergy, Unknown, Rash, 11/01/17) clindamycin (Verified Allergy, Unknown, Nausea/Vomiting, 11/01/17) Family History PAST FAMILY HISTORY: Reviewed. No h/o DM or CAD Social History PAST SOCIAL HISTORY: Negative for alcohol, tobacco or drugs. (Patricia Castellon) Review of Systems Gastrointestinal: COMPLAINS OF: Abdominal pain, Constipation, Nausea, Vomiting , Difficulty Swallowing, Swelling of Abdomen, DENIES: Black stools, Bloody stools, Diarrhea, Odynophagia, Heartburn, Hematemesis (Patricia Castellon) GI Exam Vitals I&O Vital Signs Date Time Temp Pulse Resp B/P (MAP) Pulse Ox O2 Delivery O2 Flow Rate FiO2 11/02/17 08:24 98.7 76 16 99/57 (71) 96 11/02/17 03:51 95.9 82 18 110/61 (77) 95 11/02/17 00:06 96.8 81 18 124/68 (86) 95 11/01/17 21:53 11/01/17 21:47 96.3 98 18 130/71 (90) 95 11/01/17 19:28 101 17 132/65 (87) 98 Room Air 11/01/17 19:28 17 98 Room Air 11/01/17 17:34 105 18 137/78 (97) 98 Room Air 11/01/17 17:27 18 11/01/17 15:39 98.9 107 18 143/76 (98) 97 I/O 11/01/17 11/01/17 11/01/17 11/02/17 11/02/17 11/02/17 07:00 15:00 23:00 07:00 15:00 23:00 Intake Total 1000 ml 50 ml Balance 1000 ml 50 ml Intake Oral 50 ml IV Total 1000 ml # Voids 0 # Bowel Movements 0 Laboratory Test 11/01/17 16:00 11/02/17 03:45 White Blood Count 5.5 TH/MM3 4.5 TH/MM3 Red Blood Count 3.72 MIL/MM3 3.18 MIL/MM3 Hemoglobin 12.2 GM/DL 10.4 GM/DL Hematocrit 36.0 % 30.6 % Mean Corpuscular Volume 96.6 FL 96.2 FL Mean Corpuscular Hemoglobin 32.6 PG 32.7 PG Mean Corpuscular Hemoglobin Concent 33.8 % 33.9 % Red Cell Distribution Width 17.3 % 17.2 % Platelet Count 324 TH/MM3 256 TH/MM3 Mean Platelet Volume 9.0 FL 8.5 FL Neutrophils (%) (Auto) 81.4 % 69.4 % Lymphocytes (%) (Auto) 10.1 % 15.5 % Monocytes (%) (Auto) 7.7 % 13.9 % Eosinophils (%) (Auto) 0.3 % 0.5 % Basophils (%) (Auto) 0.5 % 0.7 % Neutrophils # (Auto) 4.5 TH/MM3 3.1 TH/MM3 Lymphocytes # (Auto) 0.6 TH/MM3 0.7 TH/MM3 Monocytes # (Auto) 0.4 TH/MM3 0.6 TH/MM3 Eosinophils # (Auto) 0.0 TH/MM3 0.0 TH/MM3 Basophils # (Auto) 0.0 TH/MM3 0.0 TH/MM3 CBC Comment DIFF FINAL DIFF FINAL Differential Comment Blood Urea Nitrogen 54 MG/DL 61 MG/DL Creatinine 1.74 MG/DL 2.13 MG/DL Random Glucose 245 MG/DL 217 MG/DL Total Protein 7.5 GM/DL 6.5 GM/DL Albumin 2.2 GM/DL 1.9 GM/DL Calcium Level 9.0 MG/DL 8.2 MG/DL Alkaline Phosphatase 377 U/L 315 U/L Aspartate Amino Transf (AST/SGOT) 60 U/L 39 U/L Alanine Aminotransferase (ALT/SGPT) 41 U/L 33 U/L Total Bilirubin 0.9 MG/DL 0.7 MG/DL Sodium Level 135 MEQ/L 136 MEQ/L Potassium Level 5.6 MEQ/L 5.1 MEQ/L Chloride Level 95 MEQ/L 100 MEQ/L Carbon Dioxide Level 27.4 MEQ/L 25.4 MEQ/L Anion Gap 13 MEQ/L 11 MEQ/L Estimat Glomerular Filtration Rate 29 ML/MIN 23 ML/MIN Lipase 58 U/L Prothrombin Time 11.4 SEC Prothromb Time International Ratio 1.1 RATIO Physical Examination HEENT: Normocephalic; atraumatic CHEST: Even/unlabored CARDIAC: RRR ABDOMEN: Distended, soft, diffuse TTP, bowel sounds active SKIN: Normal; no rash; no jaundice. 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 (Patricia Castellon) Assessment and Plan Plan Assessment: - Weakness- main complaint on arrival- states so severe she has been having difficulty standing- relates it to all the vomiting she has been having - Nausea and vomiting- states this has been going on for over a month. States she is now unable to keep pills or food down. She reports what sounds to be a regurgitation of food because states the food is getting stuck and she is unable to swallow completely. Denies hematemesis and coffee ground emesis. History of EGD with dilatation for esophageal stricture Last EGD October [address] Caldwell --> Esophageal varices, gastritis. Hiatal hernia. Pathology consistent with chemical gastropathy. Pt with DM- ? of gastroparesis in the past- GES done in 2016 normal. - Ascites- Has had three paracentesis this month, last one October 28 with over 6 L removed, pt denies feeling like her abdomen is swollen at this time although it does appear distended, states not as bad as normal - Cirrhosis secondary to autoimmune hepatitis - Lower abdominal pain- states for multiple months- Last colonoscopy done earlier this month revealed diverticulum in sigmoid colon, otherwise normal. Pt does report constipation for the past couple weeks, was previously managed with Lactulose QID but has been unable to keep this down CT abdomen and pelvis (11/01) Moderate ascites the small shrunken liver stable from previous exam - CKD- GFR currently 23- unable to have Lasix Plan: Repeat EGD with dilatation tomorrow Obtain consent NPO after MN Prednisone Spironolactone Lactulose QID ? repeat GES if EGD not significant Further recommendations based on findings of above and clinical course Pt has been seen and examined by myself and Dr. Caldwell and this note is written on his behalf (Patricia Castellon) Physician Comments Patient seen and examined Agree with above Continue with current supportive care Monitor lab Plan for an EGD tomorrow (Jered Caldwell MD) Patricia Castellon Nov 02, 2017 11:02 Jered Caldwell MD Nov 03, 2017 00:00
[2017-11-02] MEDS: DOCUSATE SODIUM 50 MG/SENNA 8.6 MG TAB PO SCH ×2 (11:06→20:43)
[2017-11-02] MEDS: predniSONE 10 MG TAB PO SCH (11:06)
[2017-11-02] MEDS: SODIUM CHLORIDE 0.9% FLUSH 10 ML FLUSH IV FLUSH SCH ×2 (11:06→20:43)
[2017-11-02] MEDS: SERTRALINE HCL 50 MG TAB PO SCH (11:06)
[2017-11-02] MEDS: INSULIN ASPART SUPPLEMENTAL SCALE SQ SCH ×4 (11:07→21:00)
[2017-11-02 11:38] VITALS: BP 126/60; PULSE 91; RESP 18; TEMP 98.8; O2SAT 97
[2017-11-02] MEDS: LACTULOSE SYRUP 20 GM/30 ML CUP PO SCH ×3 (14:34→20:43)
[2017-11-02] MEDS: PANTOPRAZOLE SODIUM 40 MG VIAL IV PUSH SCH (14:34)
[2017-11-02] MEDS: INSULIN DETEMIR 100 UNITS/ML VIAL SQ SCH (15:43)
[2017-11-02 15:53] VITALS: BP 117/62; PULSE 87; RESP 18; TEMP 98.4; O2SAT 97
[2017-11-02] MEDS ORDERED: SODIUM CHLORID 0.9% 500 ML IV PRN (17:00)
[2017-11-02] MEDS ORDERED: LACTATED RINGER'S 1000 ML IV PRN (17:00)
[2017-11-02] MEDS ORDERED: POVIDONE IODINE 5% (ANTISEPSIS KIT) 4 APPLICATIONS EACH NARE PRN (17:15)
[2017-11-02] MEDS ORDERED: CHLORHEXIDINE GLUCONATE 2 % 1 PACK (2 CLOTHS) TOPICAL PRN (17:15)
[2017-11-02] MEDS ORDERED: METOPROLOL TARTRATE 25 MG TAB PO PRN (17:15)
[2017-11-02] MEDS: ONDANSETRON HCL 4 MG/2 ML VIAL IVP PRN (19:44)
[2017-11-02 20:28] VITALS: BP 109/67; PULSE 87; RESP 16; TEMP 97.9; O2SAT 96
[2017-11-02] MEDS: LATANOPROST 0.005% OPHT SOLN 2.5 ML BTL EACH EYE SCH (20:43)
[2017-11-02] MEDS ORDERED: INSULIN DETEMIR 100 UNITS/ML VIAL SQ SCH (21:00)
[2017-11-02] MEDS ORDERED: SODIUM CHLOR 0.9% 1000 ML INJ 1,000 ML IV SCH (22:30)
[2017-11-03] MEDS: PANTOPRAZOLE SODIUM 40 MG VIAL IV PUSH SCH ×2 (02:09→13:52)
[2017-11-03 02:36] VITALS: BP 111/67; PULSE 83; RESP 16; TEMP 97.8; O2SAT 98
[2017-11-03] MEDS: LEVOTHYROXINE SODIUM 88 MCG TAB PO SCH (05:07)
[2017-11-03 06:24] VITALS: BP 105/67; PULSE 80; RESP 16; TEMP 98.5; O2SAT 96
--- NOTE | 2017-11-03 08:02 | HHI.PR ---
Subjective Remarks Follow-up on patient with ascites, intractable nausea/vomiting. Patient seen and examined today. She is currently nothing by mouth for EGD later this morning. Patient reports ongoing nausea and has had 2 episodes of nonbloody vomiting this morning. She endorses lower abdominal pain. She denies any dysuria or hematuria. She denies any fever or chills. She denies any chest pain or shortness of breath. She reports a good BM this morning. She is status post paracentesis last week. Objective Vitals Vital Signs Date Time Temp Pulse Resp B/P (MAP) Pulse Ox O2 Delivery O2 Flow Rate FiO2 11/03/17 06:24 98.5 80 16 105/67 (80) 96 11/03/17 02:36 97.8 83 16 111/67 (82) 98 11/02/17 20:28 97.9 87 16 109/67 (81) 96 11/02/17 15:53 98.4 87 18 117/62 (80) 97 11/02/17 11:38 98.8 91 18 126/60 (82) 97 11/02/17 08:24 98.7 76 16 99/57 (71) 96 I/O 11/02/17 11/02/17 11/02/17 11/03/17 11/03/17 11/03/17 07:00 15:00 23:00 07:00 15:00 23:00 Intake Total 50 ml Balance 50 ml Intake Oral 50 ml # Voids 0 2 # Bowel Movements 0 Result Diagram: 11/02/17 0345 11/02/17 0345 Imaging Last Impressions Abdomen/Pelvis CT 11/01/17 1736 Signed Impressions: Service Date/Time: Wednesday, November 01, 2017 19:35 - CONCLUSION: Moderate ascites the small shrunken liver stable from the previous exam. Marco Chaudhari MD FACR Objective Remarks GENERAL: Well-nourished, well-developed female patient in NAD. Awake and alert. Sitting up in bed. SKIN: Warm and dry. No rash. HEENT: Normocephalic. Atraumatic. EOMI. Mucous membranes pink and moist. CARDIOVASCULAR: Regular rate and rhythm. S1, S2 noted. No murmur appreciated. RESPIRATORY: Nonlabored. Clear to auscultation. Breath sounds equal bilaterally. GASTROINTESTINAL: Abdomen soft, distended. Normoactive bowel sounds x4. (+) Mild diffuse abdominal pain. MUSCULOSKELETAL: No obvious deformities. Extremities without clubbing, cyanosis or edema. NEUROLOGICAL: Awake and alert. No obvious cranial nerve deficits. Motor grossly within normal limits. Normal speech. PSYCHIATRIC: Appropriate mood and affect; insight and judgment normal. Medications and IVs Current Medications Medications (Trade) Dose Ordered Sig/Miranda Route Start Time Stop Time Status Last Admin (D50w (Vial) Inj) 50 ml UNSCH PRN IV PUSH 11/01/17 20:30 (Glucagon Inj) 1 mg UNSCH PRN OTHER 11/01/17 20:30 (NovoLOG SUPPLEMENTAL SCALE) 1 ACHS SLIDING SCALE SQ 11/01/17 21:00 11/02/17 18:31 (Compazine Inj) 10 mg Q4H PRN IV PUSH 11/01/17 20:30 (NS Flush) 2 ml UNSCH PRN IV FLUSH 11/01/17 20:30 (NS Flush) 2 ml BID IV FLUSH 11/01/17 21:00 11/02/17 20:43 (Zofran Inj) 4 mg Q6H PRN IVP 11/01/17 20:30 11/02/17 19:44 (Roxicodone) 5 mg Q4H PRN PO 11/01/17 20:30 (Sherlyn-Colace) 1 tab BID PO 11/01/17 21:00 11/02/17 20:43 (Milk Of Magnesia Liq) 30 ml Q12H PRN PO 11/01/17 20:30 (Senokot) 17.2 mg Q12H PRN PO 11/01/17 20:30 (Dulcolax Supp) 10 mg DAILY PRN RECTAL 11/01/17 20:30 (Norvasc) 2.5 mg DAILY PO 11/02/17 09:00 (Catapres) 0.1 mg BID PO 11/01/17 21:00 11/02/17 20:43 (Xalatan 0.005% Opth Soln) 1 drop HS EACH EYE 11/01/17 21:00 11/02/17 20:43 (Synthroid) 88 mcg DAILY@0600 PO 11/02/17 06:00 11/03/17 05:07 (Deltasone) 10 mg DAILY PO 11/02/17 09:00 11/02/17 11:06 (Zoloft) 50 mg DAILY PO 11/02/17 09:00 11/02/17 11:06 (Aldactone) 25 mg DAILY PO 11/02/17 09:00 (Ativan Inj) 0.5 mg Q2H PRN IV PUSH 11/01/17 21:00 11/01/17 21:36 (Antivert) 25 mg Q6HR PRN PO 11/01/17 21:00 (Roxicodone) 10 mg Q4H PRN PO 11/01/17 21:00 (Lactulose Liq) 30 ml QID PO 11/02/17 13:00 11/02/17 20:43 (Levemir Inj) 20 units DAILY SQ 11/02/17 11:45 11/02/17 15:43 (Protonix Inj) 40 mg Q12H IV PUSH 11/02/17 14:00 11/03/17 02:09 Lactated Ringer's 1,000 ml @ 30 mls/hr Q24H PRN IV 11/02/17 17:00 11/05/17 16:59 Sodium Chloride 500 ml @ 30 mls/hr [id number] PRN IV 11/02/17 17:00 11/05/17 16:59 (Lopressor) 25 mg [employer] PRN PO 11/02/17 17:15 11/05/17 17:14 (Betadine 5% Antisepsis Kit) 1 applic [employer] PRN EACH NARE 11/02/17 17:15 11/05/17 17:14 (Chlorhexidine 2% Cloth) 3 pack [employer] PRN TOPICAL 11/02/17 17:15 11/05/17 17:14 (Levemir Inj) 10 units HS SQ 11/02/17 21:00 Sodium Chloride 1,000 ml @ 42 mls/hr [id number] IV 11/02/17 22:30 11/03/17 22:18 11/02/17 22:51 A/P Problem List: (1) Autoimmune hepatitis ICD Code: K75.4 - Autoimmune hepatitis Status: Acute Permanent Comment: 07/24/16: Evaluated at [facility] for liver transplant. Declined, too early for transplant. 06/09/16: UGD_minimal grade 1 esophageal viruses, normal stomach, normal examined duodenum Colonoscopy: one 3 mm polyp in the transverse colon, ( hyperplastic polyp), examination, otherwise normal. MRI abdomen without plus with/CSY: Cirrhotic hepatic morphology. No suspicious lipid lesions. Conventional hepatic arterial anatomy. Portal veins and hepatic veins are patent. Prominent portal-systemic collateral veins about the EEG junction. Patent paraumbilical collateral. Splenomegaly. Trace ascites. Adult transthoracic echocardiogram: EF 70%. Normal global and regional left ventricular systolic function. Normal left ventricular diastolic function. Last Edited By: Naa Enrique on Jul 29, 2016 08:32 (2) Intractable nausea and vomiting ICD Code: R11.2 - Nausea with vomiting, unspecified (3) Ascites ICD Code: R18.8 - Other ascites (4) Hyperkalemia ICD Code: E87.5 - Hyperkalemia (5) Renal insufficiency ICD Code: N28.9 - Disorder of kidney and ureter, unspecified (6) DM (diabetes mellitus) ICD Code: E11.9 - Type 2 diabetes mellitus without complications Assessment and Plan 67-year-old female with a PMH of HTN, HLD, Autoimmune Hepatitis, Cirrhosis, Recurrent Ascites, Anxiety, Depression, CKD and DM who presented to the ER with complaints of dizziness in addition to nausea and vomiting for approx 2 days. Recent admit 10/28-10/29/17 for ascites requiring paracentesis, s/p 6L removed. Intractable Nausea/Vomiting with Dysphagia: unclear etiology. Hx of recent EGD on 10/08 showed esophageal varices, hiatal hernia, and gastritis. Also has hx of esophageal stricture and dilatation. ?Gastroparesis. -CT abd/pelvis 11/01 images reviewed, shows moderate ascites with small shrunken liver; stable from previous exam. -Give gentle IVF, caution with cirrhosis. Currently NPO for upcoming EGD. -Antiemetics prn and pain control prn -GI following, having EGD with dilatation later this morning -c/o lower abdominal pain, denies any dysuria. Afebrile. WBC WNL. Obtain UA. Recurrent Ascites with Cirrhosis secondary to Autoimmune Hepatitis: s/p paracentesis on 10/16 and 10/28, 6L removed. -does not appear to have any significant ascites currently, last paracentesis 6 days ago -continue patient's home meds including lactulose qid, spironolactone, mercaptopurine. No lasix due to OSVALDO and soft BP. -caution with IVF OSVALDO on CKD stage III: Cr 2.13, baseline around 1.4. Likely secondary to dehydration with recent nausea/vomiting and poor oral intake. -give gentle IVF hydration -avoid nephrotoxins, holding home HCTZ and losartan -monitor BMP - repeat lab pending for today Hyperkalemia: K 5.6 upon arrival, likely secondary to dehydration, patient also on spironolactone -repeat BMP shows improvement with K 5.1 -continue to monitor Diabetes Mellitus: chronic, patient with very labile blood glucose on prior admissions -obtain A1c level -patient's takes Levemir 20u in am, 10u in pm, did not receive evening dose of Levemir secondary to NPO this am. BS 81 this morning. Hold all Levemir for now. Continue to monitor blood sugars. -monitor Accu-checks and cover with SSI Hypertension: chronic, hypotensive this am, BP 105/67 -restart patient's home meds including amlodipine, clonidine; holding hctz/ losartan for now with OSVALDO. Add holding parameters to Norvasc and Clonidine. -monitor BP, adjust antihypertensives as needed Hypothyroidism: chronic -continue patient's Synthroid -TSH 5.680 10/19/17 Temporal Arteritis: chronic -continue patient's home prednisone 10mg daily DVT Prophylaxis: teds/SCDs. Avoid chemoprophylaxis with upcoming procedure. Discharge Planning Pending EGD results, clinical course and Gastroenterology clearance Lia Lopez Nov 03, 2017 08:02
[2017-11-03] MEDS: INSULIN ASPART SUPPLEMENTAL SCALE SQ SCH ×4 (08:24→22:59)
[2017-11-03 08:26] VITALS: BP 136/79; PULSE 90; RESP 16; TEMP 98.6; O2SAT 97
[2017-11-03] MEDS: cloNIDine HCL 0.1 MG TAB PO SCH ×2 (09:04→21:01)
[2017-11-03] MEDS: SERTRALINE HCL 50 MG TAB PO SCH (09:04)
[2017-11-03] MEDS: LACTULOSE SYRUP 20 GM/30 ML CUP PO SCH ×4 (09:05→21:03)
[2017-11-03] MEDS: SPIRONOLACTONE 25 MG TAB PO SCH (09:05)
[2017-11-03] MEDS: amLODIPine BESYLATE 5 MG TAB PO SCH (09:05)
[2017-11-03] MEDS: predniSONE 10 MG TAB PO SCH (09:05)
[2017-11-03] MEDS: DOCUSATE SODIUM 50 MG/SENNA 8.6 MG TAB PO SCH ×2 (09:05→21:01)
[2017-11-03] MEDS: SODIUM CHLORIDE 0.9% FLUSH 10 ML FLUSH IV FLUSH SCH ×2 (09:05→21:01)
--- NOTE | 2017-11-03 10:25 | PD.PROCEDR ---
GI Procedure PROCEDURE PERFORMED EGD with biopsy INDICATION FOR PROCEDURE Nausea and vomiting with known history of autoimmune hepatitis and cirrhosis PROCEDURE: The procedure, risks and benefits were discussed with Ms. Pichardo and informed consent was obtained. Anesthesia sedated her with Diprivan. She was placed in the left lateral decubitus position. EGD: The Pentax videoscope was introduced through the oropharynx and advanced to the second portion of the duodenum under direct visualization. Retroflexion was performed in the stomach. FINDINGS: The esophagus this was unremarkable except for one column of grade 1 esophageal varices no stigmata of recent bleed The stomach there was still some food residue noted in the gastric body and fundus no gastric varices were noted there was some patchy changes in the antrum of unclear significance this was biopsied no blood or bleeding was seen in the stomach The duodenum this was normal ESTIMATED BLOOD LOSS: None SPECIMENS REMOVED: Antral biopsy COMPLICATIONS: None IMPRESSION: Grade 1 esophageal varix 1: Food residue suggestive of gastroparesis Abnormal antral mucosa of unclear significance possible gastritis PLAN: Await biopsies Continue PPI Gastroparesis precautions Consider Reglan or bethanechol or erythromycin depending on symptoms Follow-up with GI post discharge Jered Caldwell MD Nov 03, 2017 10:25
[2017-11-03] MEDS ORDERED: DO NOT ADM ANY ANTICOAGULANT DRUGS PRN (10:31)
[2017-11-03] MEDS ORDERED: LIDOCAINE HCL 1% PF 5 ML SYRINGE OTHER ONE (12:00)
[2017-11-03] MEDS ORDERED: PROPOFOL 200 MG/20 ML AMP IV ONE (12:00)
[2017-11-03] MEDS ORDERED: SUCCINYLCHOLINE CHLORIDE 100 MG/5 ML SYRINGE IV PUSH ONE (12:00)
[2017-11-03 12:35] VITALS: BP 114/67; PULSE 76; RESP 18; TEMP 98.2; O2SAT 96
[2017-11-03 12:39] LABS: BICARBONATE 26.2 MEQ/L (21.0-32.0); CALCIUM 8.3 MG/DL (8.5-10.1); CREATININE 2.26 MG/DL (0.50-1.00)
[2017-11-03 16:28] VITALS: BP 114/64; PULSE 72; RESP 18; TEMP 98.2; O2SAT 97
--- NOTE | 2017-11-03 18:38 | RADRPT ---
EXAM DATE/TIME: 11/03/2017 17:41 [facility] COMPARISON: CT ABDOMEN & PELVIS W/O CONTRAST, November 01, 2017, 19:35. EXTERNAL COMPARISON : [facility], MRI ABDOMEN W & W/O CONTRAST, July 16, 2015 INDICATIONS : Increased BUN/Creatinine. MEDICAL HISTORY : Hypothyroidism. Hypercholesterolemia. Osteoarthritis. GERD. HTN. Colitis. Glaucoma. Temporal arthriti s. Mumps. Diabetes. Measles. Cirrhosis. Hepatitis. Ascites. SURGICAL HISTORY : Appendectomy. Hysterectomy. Liver biopsy. Paracentesis. ENCOUNTER: Initial ACUITY: 1 day PAIN SCORE: 2/10 LOCATION: Bilateral flank MEASUREMENTS: RIGHT KIDNEY: 10.7 x 5.0 x 4.3 cm LEFT KIDNEY: 10.8 x 3.9 x 4.7 cm FINDINGS: RIGHT KIDNEY: Renal cortex is normal in thickness and echotexture. No hydronephrosis, stone. There is a 1 cm mass at the lower pole. LEFT KIDNEY: Renal cortex is normal in thickness and echotexture. No hydronephrosis, stone, or mass. BLADDER: Within normal limits given the degree of distension. OTHER: : There is a moderate amount of ascites seen. CONCLUSION: 1. No acute abnormality is seen in the kidneys. 2. 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 Thi s can be seen on the CT examination. 3. Moderate ascites. Yayo Hall MD on November 03, 2017 at 18:34 Board Certified Radiologist. This report was verified electronically.
[2017-11-03 20:32] VITALS: BP 157/83; PULSE 91; RESP 14; TEMP 97.6; O2SAT 96
[2017-11-03] MEDS ORDERED: INSULIN DETEMIR 100 UNITS/ML VIAL SQ SCH (21:00)
[2017-11-03] MEDS: LATANOPROST 0.005% OPHT SOLN 2.5 ML BTL EACH EYE SCH (21:01)
[2017-11-03] MEDS: ONDANSETRON HCL 4 MG/2 ML VIAL IVP PRN (21:01)
[2017-11-04] VITALS (10 sets, daily range): BP systolic 86–141; BP diastolic 51–75; PULSE 73–94; RESP 14–18; TEMP 97.6–98.3; O2SAT 96–99
[2017-11-04] MEDS ORDERED: SODIUM CHLORID 0.9% 500 ML INJ 500 ML IV ONE (01:00)
[2017-11-04] MEDS: PANTOPRAZOLE SODIUM 40 MG VIAL IV PUSH SCH (02:18)
[2017-11-04] MEDS: LEVOTHYROXINE SODIUM 88 MCG TAB PO SCH (05:47)
[2017-11-04] MEDS: INSULIN ASPART SUPPLEMENTAL SCALE SQ SCH ×4 (08:00→21:00)
[2017-11-04 09:00] LABS: AUTOMATED NEUTROPHIL # 4.1 TH/MM3 (1.8-7.7); BASOPHIL % 0.3 % (0.0-2.0); EOSINOPHIL % 0.9 % (0.0-4.0); HEMATOCRIT 29.4 % (35.0-46.0); HEMOGLOBIN 9.8 GM/DL (11.6-15.3); LYMPHOCYTE # 0.6 TH/MM3 (1.0-4.8); MEAN CELL VOLUME 97.3 FL (80.0-100.0); MEAN CORPUSCULAR HEMOGLOBIN 32.5 PG (27.0-34.0); MEAN CORPUSCULAR HGB CONC 33.4 % (32.0-36.0); MEAN PLATELET VOLUME 8.7 FL (7.0-11.0); MONOCYTE # 0.4 TH/MM3 (0-0.9); NEUT % 79.8 % (16.0-70.0); PLATELET COUNT 218 TH/MM3 (150-450); RED BLOOD COUNT 3.02 MIL/MM3 (4.00-5.30); WHITE BLOOD COUNT 5.1 TH/MM3 (4.0-11.0)
[2017-11-04] MEDS: DOCUSATE SODIUM 50 MG/SENNA 8.6 MG TAB PO SCH (09:00)
[2017-11-04] MEDS: cloNIDine HCL 0.1 MG TAB PO SCH (09:00)
[2017-11-04] MEDS: amLODIPine BESYLATE 5 MG TAB PO SCH (09:00)
[2017-11-04] MEDS: INSULIN DETEMIR 100 UNITS/ML VIAL SQ SCH (09:04)
[2017-11-04] MEDS: LACTULOSE SYRUP 20 GM/30 ML CUP PO SCH ×2 (09:07→18:42)
[2017-11-04] MEDS: SPIRONOLACTONE 25 MG TAB PO SCH (09:08)
[2017-11-04] MEDS: predniSONE 10 MG TAB PO SCH (09:08)
[2017-11-04] MEDS: SERTRALINE HCL 50 MG TAB PO SCH (09:08)
[2017-11-04] MEDS: SODIUM CHLORIDE 0.9% FLUSH 10 ML FLUSH IV FLUSH SCH ×2 (09:09→22:22)
[2017-11-04 09:20] LABS: ALBUMIN 1.9 GM/DL (3.4-5.0); AST (GOT) 35 U/L (15-37); BICARBONATE 26.8 MEQ/L (21.0-32.0); BLOOD UREA NITROGEN 61 MG/DL (7-18); CALCIUM 8.3 MG/DL (8.5-10.1); CHLORIDE 103 MEQ/L (98-107); CREATININE 2.06 MG/DL (0.50-1.00); GLOMERULAR FILTRATION RATE 24 ML/MIN (>89); GLUCOSE,RANDOM 94 MG/DL (74-106); SODIUM (NA) 138 MEQ/L (136-145)
[2017-11-04 09:22] LABS: ALT (GPT) 29 U/L (10-53)
[2017-11-04 09:25] LABS: ALKALINE PHOSPHATASE 270 U/L (45-117); TOTAL BILIRUBIN ADULT 0.5 MG/DL (0.2-1.0); TOTAL PROTEIN 6.7 GM/DL (6.4-8.2)
--- NOTE | 2017-11-04 09:26 | RADRPT ---
EXAM DATE/TIME: 11/04/2017 08:35 [facility] COMPARISON: CHEST SINGLE AP, October 15, 2017, 18:29. INDICATIONS : Cough. MEDICAL HISTORY : Hypothyroidism. Hypercholesterolemia. Osteoarthritis. GERD. HTN. Colitis. Glaucoma. Temporal arthriti s. Mumps. Diabetes. Measles. Cirrhosis. Hepatitis. Ascites. SURGICAL HISTORY : Appendectomy. Hysterectomy. Liver biopsy. Paracentesis. ENCOUNTER: Subsequent ACUITY: 3 days PAIN SCORE: 2/10 LOCATION: Bilateral chest FINDINGS: A single view of the chest demonstrates the lungs to be symmetrically aerated without evidence of mas s, infiltrate or effusion. The cardiomediastinal contours are unremarkable. Osseous structures are intact. CONCLUSION: No acute disease. Jose Waggoner Jr., MD on November 04, 2017 at 9:23 Board Certified Radiologist. This report was verified electronically.
[2017-11-04 09:43] LABS: CREATININE, RANDOM URINE 145.1 MG/DL
[2017-11-04 09:44] LABS: AMORPHOUS SEDIMENT, URINE RARE; BACTERIA, URINE FEW /hpf; BILIRUBIN, URINE NEG (NEG); BLOOD, URINE NEG (NEG); GLUCOSE,URINE NEG (NEG); HYALINE CAST, URINE 10 /lpf (RARE); KETONE, URINE NEG (NEG); MUCUS URINE FEW /lpf (OCC); NITRITE,URINE NEG (NEG); PH, URINE 5.5 (5.0-8.5); SQUAMOUS EPITHELIAL CELL URINE 1 /hpf (0-5); URINE COLOR YELLOW (YELLW/STRAW); URINE LEUKOCYTE ESTERASE SMALL (NEG)
--- NOTE | 2017-11-04 10:17 | HHI.PR ---
Subjective Remarks Follow-up on patient with ascites, intractable nausea/vomiting. Patient seen and examined. Patient states she feels like her abdomen is swelling similar to when she's needed her paracentesis. She complains of increased shortness of breath and cough. She denies any fever or chills. She continues to have nausea and poor oral intake although does not report any vomiting today. She's had ongoing diarrhea and C. difficile is pending. Objective Vitals Vital Signs Date Time Temp Pulse Resp B/P (MAP) Pulse Ox O2 Delivery O2 Flow Rate FiO2 11/04/17 07:38 97.9 81 18 97/61 (73) 97 11/04/17 04:40 98.0 94 14 110/68 (82) 98 11/04/17 02:18 76 117/72 (87) 11/04/17 00:51 85 18 86/51 (63) 97 11/04/17 00:50 77 18 88/53 (65) 97 11/04/17 00:37 97.6 73 14 92/53 (66) 96 11/03/17 20:32 97.6 91 14 157/83 (107) 96 11/03/17 16:28 98.2 72 18 114/64 (81) 97 11/03/17 12:35 98.2 76 18 114/67 (83) 96 11/03/17 11:15 76 16 108/65 (79) 97 Room Air 11/03/17 11:00 98.2 78 16 104/64 (77) 97 Room Air 11/03/17 10:45 79 16 107/66 (80) 96 Room Air 11/03/17 10:35 97.6 81 16 103/61 (75) 96 Room Air I/O 11/03/17 11/03/17 11/03/17 11/04/17 11/04/17 11/04/17 07:00 15:00 23:00 07:00 15:00 23:00 Intake Total 340 ml 500 ml Balance 340 ml 500 ml Intake Oral 240 ml IV Total 500 ml Other 100 ml # Voids 2 1 # Bowel Movements 1 Result Diagram: 11/04/17 0837 11/04/17 0837 Imaging Last Impressions Chest X-Ray 11/04/17 0000 Signed Impressions: Service Date/Time: Saturday, November 04, 2017 08:35 - CONCLUSION: No acute disease. Jose Waggoner Jr., MD Renal Ultrasound 11/03/17 0000 Signed Impressions: Service Date/Time: Friday, November 03, 2017 17:41 - CONCLUSION: 1. No acute abnormality is seen in the kidneys. 2. 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 This can be seen on the CT examination. 3. Moderate ascites. Yayo Hall MD Abdomen/Pelvis CT 11/01/17 1736 Signed Impressions: Service Date/Time: Wednesday, November 01, 2017 19:35 - CONCLUSION: Moderate ascites the small shrunken liver stable from the previous exam. Marco Chaudhari MD FACR Objective Remarks GENERAL: Thin female patient in NAD. Awake and alert. Lying in bed. SKIN: Warm and dry. No rash. HEENT: Normocephalic. Atraumatic. EOMI. Mucous membranes pink and moist. CARDIOVASCULAR: Regular rate and rhythm. S1, S2 noted. No murmur appreciated. RESPIRATORY: Nonlabored. Few right sided basilar crackles noted on exam. GASTROINTESTINAL: Abdomen soft, more distended. Hypoactive bowel sounds x4. (+) Mild diffuse abdominal pain. MUSCULOSKELETAL: No obvious deformities. Extremities without clubbing, cyanosis or edema. NEUROLOGICAL: Awake and alert. No obvious cranial nerve deficits. Motor grossly within normal limits. Normal speech. PSYCHIATRIC: Appropriate mood and affect; insight and judgment normal. Medications and IVs Current Medications Medications (Trade) Dose Ordered Sig/Miranda Route Start Time Stop Time Status Last Admin (D50w (Vial) Inj) 50 ml UNSCH PRN IV PUSH 11/01/17 20:30 (Glucagon Inj) 1 mg UNSCH PRN OTHER 11/01/17 20:30 (NovoLOG SUPPLEMENTAL SCALE) 1 ACHS SLIDING SCALE SQ 11/01/17 21:00 11/03/17 22:59 (Compazine Inj) 10 mg Q4H PRN IV PUSH 11/01/17 20:30 (NS Flush) 2 ml UNSCH PRN IV FLUSH 11/01/17 20:30 (NS Flush) 2 ml BID IV FLUSH 11/01/17 21:00 11/04/17 09:09 (Zofran Inj) 4 mg Q6H PRN IVP 11/01/17 20:30 11/03/17 21:01 (Roxicodone) 5 mg Q4H PRN PO 11/01/17 20:30 (Sherlyn-Colace) 1 tab BID PO 11/01/17 21:00 11/03/17 21:01 (Milk Of Magnesia Liq) 30 ml Q12H PRN PO 11/01/17 20:30 (Senokot) 17.2 mg Q12H PRN PO 11/01/17 20:30 (Dulcolax Supp) 10 mg DAILY PRN RECTAL 11/01/17 20:30 (Norvasc) 2.5 mg DAILY PO 11/02/17 09:00 11/03/17 09:05 (Catapres) 0.1 mg BID PO 11/01/17 21:00 11/03/17 21:01 (Xalatan 0.005% Opth Soln) 1 drop HS EACH EYE 11/01/17 21:00 11/03/17 21:01 (Synthroid) 88 mcg DAILY@0600 PO 11/02/17 06:00 11/04/17 05:47 (Deltasone) 10 mg DAILY PO 11/02/17 09:00 11/04/17 09:08 (Zoloft) 50 mg DAILY PO 11/02/17 09:00 11/04/17 09:08 (Aldactone) 25 mg DAILY PO 11/02/17 09:00 11/04/17 09:08 (Ativan Inj) 0.5 mg Q2H PRN IV PUSH 11/01/17 21:00 11/01/17 21:36 (Antivert) 25 mg Q6HR PRN PO 11/01/17 21:00 (Roxicodone) 10 mg Q4H PRN PO 11/01/17 21:00 11/03/17 21:03 (Lactulose Liq) 30 ml QID PO 11/02/17 13:00 11/04/17 09:07 (Levemir Inj) 20 units DAILY SQ 11/02/17 11:45 Future hold 11/04/17 09:04 (Protonix Inj) 40 mg Q12H IV PUSH 11/02/17 14:00 11/04/17 02:18 Lactated Ringer's 1,000 ml @ 30 mls/hr Q24H PRN IV 11/02/17 17:00 11/05/17 16:59 Sodium Chloride 500 ml @ 30 mls/hr [id number] PRN IV 11/02/17 17:00 11/05/17 16:59 (Lopressor) 25 mg RESCUE BOAT OPERATOR PRN PO 11/02/17 17:15 11/05/17 17:14 (Betadine 5% Antisepsis Kit) 1 applic RESCUE BOAT OPERATOR PRN EACH NARE 11/02/17 17:15 11/05/17 17:14 (Chlorhexidine 2% Cloth) 3 pack RESCUE BOAT OPERATOR PRN TOPICAL 11/02/17 17:15 11/05/17 17:14 Miscellaneous Information ALL NURSING DEPARTME... UNSCH PRN .XX 11/03/17 10:31 11/04/17 10:30 (Levemir Inj) 5 units HS SQ 11/03/17 21:00 11/03/17 22:59 A/P Problem List: (1) Autoimmune hepatitis ICD Code: K75.4 - Autoimmune hepatitis Status: Acute Permanent Comment: 07/24/16: Evaluated at [facility] for liver transplant. Declined, too early for transplant. 06/09/16: UGD_minimal grade 1 esophageal viruses, normal stomach, normal examined duodenum Colonoscopy: one 3 mm polyp in the transverse colon, ( hyperplastic polyp), examination, otherwise normal. MRI abdomen without plus with/CSY: Cirrhotic hepatic morphology. No suspicious lipid lesions. Conventional hepatic arterial anatomy. Portal veins and hepatic veins are patent. Prominent portal-systemic collateral veins about the EEG junction. Patent paraumbilical collateral. Splenomegaly. Trace ascites. Adult transthoracic echocardiogram: EF 70%. Normal global and regional left ventricular systolic function. Normal left ventricular diastolic function. Last Edited By: Naa Enrique on Jul 29, 2016 08:32 (2) Intractable nausea and vomiting ICD Code: R11.2 - Nausea with vomiting, unspecified (3) Ascites ICD Code: R18.8 - Other ascites (4) Hyperkalemia ICD Code: E87.5 - Hyperkalemia (5) Renal insufficiency ICD Code: N28.9 - Disorder of kidney and ureter, unspecified (6) DM (diabetes mellitus) ICD Code: E11.9 - Type 2 diabetes mellitus without complications Assessment and Plan 67-year-old female with a PMH of HTN, HLD, Autoimmune Hepatitis, Cirrhosis, Recurrent Ascites, Anxiety, Depression, CKD and DM who presented to the ER with complaints of dizziness in addition to nausea and vomiting for approx 2 days. Recent admit 10/28-10/29/17 for ascites requiring paracentesis, s/p 6L removed. Intractable Nausea/Vomiting with Dysphagia: unclear etiology. Hx of recent EGD on 10/08 showed esophageal varices, hiatal hernia, and gastritis. Also has hx of esophageal stricture and dilatation. ?Gastroparesis. -CT abd/pelvis 11/01 images reviewed, shows moderate ascites with small shrunken liver; stable from previous exam. -Antiemetics prn and pain control prn -GI following, s/p EGD showing grade 1 varices, residual food suggestive gastroparesis, abnormal antral mucosa possible gastritis. Recs: PPI, gastroparesis precautions, consider Reglan, bethanechol or erythromycin, f/u as outpt -UA unremarkable Recurrent Ascites with Cirrhosis secondary to Autoimmune Hepatitis: s/p paracentesis on 10/16 and 10/28, 6L removed. -last paracentesis 7 days ago -continue patient's home meds including lactulose qid, spironolactone, mercaptopurine. No lasix due to OSVALDO and soft BP. -patient c/o abdominal distention similar to when she needs paracentesis. IR consulted for US guided paracentesis. Diarrhea -on lactulose. Will decrease dose to TID. -C diff pending OSVALDO on CKD stage III: Cr 2.13, baseline around 1.4. Likely secondary to dehydration with recent nausea/vomiting and poor oral intake. Suspect hepatorenal syndrome -worsening creatinine, did improve some with small IVF bolus overnight -FENa 0.1%, prerenal -Consult Nephrology -IV Albumin ordered -avoid nephrotoxins, continue to hold home HCTZ and losartan -continue to monitor renal indices - repeat BMP in am Hyperkalemia: K 5.6 upon arrival, likely secondary to dehydration, patient also on spironolactone -repeat BMP shows improvement with K 4.5 -continue to monitor Diabetes Mellitus: chronic, patient with very labile blood glucose on prior admissions -A1c level pending -BS running low. Levemir dose adjusted, now on Levemir 20u daily and Levemir 5u at night. BS 87 this am. Hold nighttime Levemir dose. -monitor Accu-checks and cover with SSI Hypertension: chronic Now hypotensive -Clonidine and Norvasc on hold secondary to low BP. HCTZ/losartan on hold for OSVALDO. -monitor BP, adjust antihypertensives as needed Hypothyroidism: chronic -continue patient's Synthroid -TSH 5.680 10/19/17 Temporal Arteritis: chronic -continue patient's home prednisone 10mg daily DVT Prophylaxis: teds/SCDs. Avoid chemoprophylaxis with upcoming procedure. Discharge Planning Pending improvement in clinical course, GI clearance, C diff results Lia Lopez Nov 04, 2017 10:17
[2017-11-04] MEDS: ONDANSETRON HCL 4 MG/2 ML VIAL IVP PRN (10:28)
[2017-11-04] MEDS: ALBUMIN 25% INJ 100 ML IV SCH ×2 (13:00→22:22)
[2017-11-04] MEDS ORDERED: LIDOCAINE HCL 1% PF 30 ML VIAL ONE ×2 (13:31→14:49)
[2017-11-04 13:48] LABS: INTERNATIONAL NORMALIZED RATIO 1.1 RATIO; PROTHROMBIN TIME - PATIENT 10.9 SEC (9.8-11.6)
--- NOTE | 2017-11-04 14:49 | PD.RAD ---
Post US Procedure Prog Note Pre Procedure Diagnosis: (1) Cirrhosis of liver with ascites Post Procedure Diagnosis: (1) Cirrhosis of liver with ascites Procedure Date: Nov 04, 2017 Supervising Radiologist: Yaw Josue Proceduralist/Assist: Kaye Concepcion RDMS Anesthesia: Local Plan of Activity Patient to Unit: Other Patient Condition: Fair See PACS Report for procedural detail/treatment Drainage Procedure Procedure 1 Imaging Guidance: Ultrasound Side: Left Procedure Type: Paracentesis Procedure: Removal Ukrainian: 6 Drainage: Suction Fluid Removal (CCs): 5300 Fluid Description: Cloudy, Yellow Yaw Josue MD Nov 04, 2017 14:49
--- NOTE | 2017-11-04 14:52 | RADRPT ---
EXAM DATE/TIME: 11/04/2017 10:43 [facility] COMPARISON: EXTERNAL COMPARISON: US GUIDED ABD PARACENTESIS, October 28, 2017, 14:58. [facility]. MR Abdomen, Jul 16 2015. U /S Abdomen limited 07/12/2015. INDICATIONS : Ascites. MEDICAL HISTORY : Hypothyroid. Hypercholesterol. GERD. HTN. Diabetic. Cirrhosis. Hepatitis. SURGICAL HISTORY : appendectomy. Hysterectomy. Liver biopsy. Paracentesis. ENCOUNTER: Subsequent ACUITY: 1 month PAIN SCORE: 3/10 LOCATION: Left lower quadrant FLUID: Total volume of 5300 cc of clear, yellow fluid was removed. Fluid was discarded. Paracentesis was therapeutic only. Post procedure scanning reveals no hematoma or other complication. TECHNIQUE: 1. Ultrasound guidance for abdominal paracentesis. 2. Paracentesis. The risks, benefits, and alternatives to ultrasound guided paracentesis were explained to the patient in detail including the risk of bleeding and infection. Written and verbal informed consent was obt ained. With the patient on the ultrasound table, ultrasound imaging was used to select the most appropriate approach for paracentesis. Overlying skin was prepped and draped in the usual sterile fashion and wi th a local anesthetic, a dermatotomy was made with an 11 blade scalpel. A 6 Indonesian [id number] ca theter was introduced into the peritoneal cavity and fluid was collected. The patient tolerated the procedure well and left the ultrasound suite in stable condition. CONCLUSION: Uncomplicated ultrasound guided paracentesis. Ywa Josue MD on November 04, 2017 at 14:45 Board Certified Radiologist. This report was verified electronically.
[2017-11-04] MEDS ORDERED: ALBUMIN HUMAN 25% 25GM-W/12.5GM FOR 37.5GM IV ONE (15:00)
[2017-11-04] MEDS ORDERED: ALBUMIN HUMAN 25% 12.5GM-W/25GM FOR 37.5GM IV ONE (15:00)
--- NOTE | 2017-11-04 16:28 | PD.CONS ---
HPI Service Nephrology Consult Requested By Dr. Lopez Reason for Consult Heptorenal syndrome with acute kidney injury Primary Care Physician Luis Clark, DO History of Present Illness Patient is a 67-year-old female with a PMH of HTN, Hyperlipidemia, Autoimmune Hepatitis, Cirrhosis, Recurrent Ascites, Anxiety, Depression, CKD stage 3 and DM. Presented to the ER with complaints of dizziness,nausea and vomiting. Recent admission 10/28-10/29/17 for ascites requiring paracentesis, s/p 6L removed. Nephrology is consulted for acute kidney injury with creatinine today of 2.06 abd potassium WNL. On admission K+ 5.6. Creatinine 1.74. Reviewing records patient appears to have CKD stage 3. Creatinine in 06/26 at 1.40. Renal US with no acute abnormality. Patient is s/p paracentesis today for 5300L. (Kathy Monsivais) Review of Systems Constitutional: COMPLAINS OF: Fatigue, Change in appetite Respiratory: COMPLAINS OF: Shortness of breath Cardiovascular: COMPLAINS OF: Dyspnea on Exertion Gastrointestinal: COMPLAINS OF: Diarrhea, Nausea Musculoskeletal: COMPLAINS OF: Stiffness (Kathy Monsivais) Past Family Social History Allergies: Coded Allergies: doxycycline (Verified Allergy, Severe, Rash, 11/01/17) minocycline (Verified Allergy, Severe, Rash, 11/01/17) morphine (Verified Allergy, Severe, Rash, 11/01/17) penicillin G (Verified Allergy, Severe, Rash, 11/01/17) tigecycline (Verified Allergy, Severe, Rash, 11/01/17) Sulfa (Sulfonamide Antibiotics) (Verified Allergy, Unknown, Rash, 11/01/17) clindamycin (Verified Allergy, Unknown, Nausea/Vomiting, 11/01/17) Past Medical History HTN Hyperlipidemia Autoimmune Hepatitis Cirrhosis Recurrent Ascites Anxiety Depression CKD stage 3 DM Past Surgical History Appendectomy Hysterectomy Liver/Breast Biopsy Active Ordered Medications Current Medications Medications (Trade) Dose Ordered Sig/Miranda Route Start Time Stop Time Status Last Admin (D50w (Vial) Inj) 50 ml UNSCH PRN IV PUSH 11/01/17 20:30 (Glucagon Inj) 1 mg UNSCH PRN OTHER 11/01/17 20:30 (NovoLOG SUPPLEMENTAL SCALE) 1 ACHS SLIDING SCALE SQ 11/01/17 21:00 11/03/17 22:59 (Compazine Inj) 10 mg Q4H PRN IV PUSH 11/01/17 20:30 (NS Flush) 2 ml UNSCH PRN IV FLUSH 11/01/17 20:30 (NS Flush) 2 ml BID IV FLUSH 11/01/17 21:00 11/04/17 09:09 (Zofran Inj) 4 mg Q6H PRN IVP 11/01/17 20:30 11/04/17 10:28 (Roxicodone) 5 mg Q4H PRN PO 11/01/17 20:30 (Sherlyn-Colace) 1 tab BID PO 11/01/17 21:00 Future Hold 11/03/17 21:01 (Milk Of Chantel Liq) 30 ml Q12H PRN PO 11/01/17 20:30 (Senokot) 17.2 mg Q12H PRN PO 11/01/17 20:30 (Dulcolax Supp) 10 mg DAILY PRN RECTAL 11/01/17 20:30 (Norvasc) 2.5 mg DAILY PO 11/02/17 09:00 Future Hold 11/03/17 09:05 (Catapres) 0.1 mg BID PO 11/01/17 21:00 Future Hold 11/03/17 21:01 (Xalatan 0.005% Opth Soln) 1 drop HS EACH EYE 11/01/17 21:00 11/03/17 21:01 (Synthroid) 88 mcg DAILY@0600 PO 11/02/17 06:00 11/04/17 05:47 (Deltasone) 10 mg DAILY PO 11/02/17 09:00 11/04/17 09:08 (Zoloft) 50 mg DAILY PO 11/02/17 09:00 11/04/17 09:08 (Aldactone) 25 mg DAILY PO 11/02/17 09:00 11/04/17 09:08 (Ativan Inj) 0.5 mg Q2H PRN IV PUSH 11/01/17 21:00 11/01/17 21:36 (Antivert) 25 mg Q6HR PRN PO 11/01/17 21:00 (Roxicodone) 10 mg Q4H PRN PO 11/01/17 21:00 11/03/17 21:03 (Levemir Inj) 20 units DAILY SQ 11/02/17 11:45 Future hold 11/04/17 09:04 Lactated Ringer's 1,000 ml @ 30 mls/hr Q24H PRN IV 11/02/17 17:00 11/05/17 16:59 Sodium Chloride 500 ml @ 30 mls/hr [id number] PRN IV 11/02/17 17:00 11/05/17 16:59 (Lopressor) 25 mg SHOE CUTTER PRN PO 11/02/17 17:15 11/05/17 17:14 (Betadine 5% Antisepsis Kit) 1 applic SHOE CUTTER PRN EACH NARE 11/02/17 17:15 11/05/17 17:14 (Chlorhexidine 2% Cloth) 3 pack SHOE CUTTER PRN TOPICAL 11/02/17 17:15 11/05/17 17:14 (Levemir Inj) 5 units HS SQ 11/03/17 21:00 Future Hold 11/03/17 22:59 (Protonix) 40 mg DAILY PO 11/05/17 09:00 Albumin Human 100 ml @ 60 mls/hr Q8H IV 11/04/17 13:00 11/06/17 12:59 (Lactulose Liq) 30 ml TID PO 11/04/17 18:00 Family History Mother with CAD Father with lung CA No family history of kidney disease Social History Denies smoking or ETOH use Lives with DTR (Kathy Monsivais) Physical Exam Vital Signs Vital Signs Date Time Temp Pulse Resp B/P (MAP) Pulse Ox O2 Delivery O2 Flow Rate FiO2 11/04/17 15:45 98.2 74 18 132/64 (86) 99 11/04/17 12:25 98.1 92 18 110/67 (81) 96 11/04/17 07:38 97.9 81 18 97/61 (73) 97 11/04/17 04:40 98.0 94 14 110/68 (82) 98 11/04/17 02:18 76 117/72 (87) 11/04/17 00:51 85 18 86/51 (63) 97 11/04/17 00:50 77 18 88/53 (65) 97 11/04/17 00:37 97.6 73 14 92/53 (66) 96 11/03/17 20:32 97.6 91 14 157/83 (107) 96 11/03/17 16:28 98.2 72 18 114/64 (81) 97 Physical Exam GENERAL: Alert and oriented. SKIN: Warm and dry. Dressing on abdomen HEAD: Normocephalic. EYES: No scleral icterus. No injection or drainage. NECK: Supple, trachea midline. No JVD or lymphadenopathy. CARDIOVASCULAR: Regular rate and rhythm without murmurs, gallops, or rubs. RESPIRATORY: Breath sounds equal bilaterally. No accessory muscle use. GASTROINTESTINAL: Abdomen soft, non-tender, nondistended. MUSCULOSKELETAL: No cyanosis, or edema. BACK: Nontender without obvious deformity. No CVA tenderness. Laboratory Laboratory Tests Test 11/04/17 08:37 11/04/17 09:00 11/04/17 12:15 11/04/17 13:15 White Blood Count 5.1 Red Blood Count 3.02 Hemoglobin 9.8 Hematocrit 29.4 Mean Corpuscular Volume 97.3 Mean Corpuscular Hemoglobin 32.5 Mean Corpuscular Hemoglobin Concent 33.4 Red Cell Distribution Width 18.0 Platelet Count 218 Mean Platelet Volume 8.7 Neutrophils (%) (Auto) 79.8 Lymphocytes (%) (Auto) 12.0 Monocytes (%) (Auto) 7.0 Eosinophils (%) (Auto) 0.9 Basophils (%) (Auto) 0.3 Neutrophils # (Auto) 4.1 Lymphocytes # (Auto) 0.6 Monocytes # (Auto) 0.4 Eosinophils # (Auto) 0.0 Basophils # (Auto) 0.0 CBC Comment DIFF FINAL Differential Comment Blood Urea Nitrogen 61 Creatinine 2.06 Random Glucose 94 Total Protein 6.7 Albumin 1.9 Calcium Level 8.3 Alkaline Phosphatase 270 Aspartate Amino Transf (AST/SGOT) 35 Alanine Aminotransferase (ALT/SGPT) 29 Total Bilirubin 0.5 Sodium Level 138 Potassium Level 4.5 Chloride Level 103 Carbon Dioxide Level 26.8 Anion Gap 8 Estimat Glomerular Filtration Rate 24 Urine Color YELLOW Urine Turbidity HAZY Urine pH 5.5 Urine Specific [place] 1.020 Urine Protein TRACE Urine Glucose (UA) NEG Urine Ketones NEG Urine Occult Blood NEG Urine Nitrite NEG Urine Bilirubin NEG Urine Urobilinogen 2.0 Urine Leukocyte Esterase SMALL Urine RBC 1 Urine WBC 3 Urine Squamous Epithelial Cells 1 Urine Amorphous Sediment RARE Urine Bacteria FEW Urine Hyaline Casts 10 Urine Mucus FEW Microscopic Urinalysis Comment CULT NOT INDICATED Urine Random Creatinine 145.1 Urine Random Sodium 6 Stool C. difficile Toxin (PCR) NEGATIVE Stl C. difficile Toxin Epiderm 027 PRESUMPTIVE NEGATIVE Prothrombin Time 10.9 Prothromb Time International Ratio 1.1 B-Type Natriuretic Peptide 57 (Kathy Monsivais) Result Diagram: 11/04/17 0837 11/04/17 0837 Imaging Last Impressions Cyst Biopsy Asp-Paracentesis US 11/04/17 0000 Signed Impressions: Service Date/Time: Saturday, November 04, 2017 10:43 - CONCLUSION: Uncomplicated ultrasound guided paracentesis. Yaw Josue MD Chest X-Ray 11/04/17 0000 Signed Impressions: Service Date/Time: Saturday, November 04, 2017 08:35 - CONCLUSION: No acute disease. Jose Waggoner Jr., MD Renal Ultrasound 11/03/17 0000 Signed Impressions: Service Date/Time: Friday, November 03, 2017 17:41 - CONCLUSION: 1. No acute abnormality is seen in the kidneys. 2. 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 This can be seen on the CT examination. 3. Moderate ascites. Yayo Hall MD Abdomen/Pelvis CT 11/01/17 4416 Signed Impressions: Service Date/Time: Wednesday, November 01, 2017 19:35 - CONCLUSION: Moderate ascites the small shrunken liver stable from the previous exam. Marco Chaudhari MD FACR (Kathy Monsivais) Assessment and Plan Problem List: (1) OSVALDO (acute kidney injury) ICD Codes: N17.9 - Acute kidney failure, unspecified Status: Acute Plan: CKD stage 3 with creatinine noted in 06/26 at 1.40 trace proteinuria noted. Most likely related to heptorenal syndrome Acute Kidney injury with FeNa of 0.06% suggesting prerenal however can also be low with ATN in cirrhosis. With past medical history of n/v/d prerenal is likely Creatinine slightly improved at 2.06 from 2.26 Renal US: . No acute abnormality is seen in the kidneys. Plan Continue to hold losartan and HCTZ Will continue to monitor UOP and BMP Avoid nephrotoxins when possible Oral Fluids encouraged Serology ordered (2) Anemia ICD Codes: D64.9 - Anemia, unspecified Status: Acute Plan: Anemia will monitor (3) Type 2 diabetes mellitus ICD Codes: E11.9 - Type 2 diabetes mellitus without complications Status: Chronic Plan: Maintain BS between 140mg/dl to 180mg/dl (4) HTN (hypertension) ICD Codes: I10 - Essential (primary) hypertension Plan: Continue current medication Blood pressure labile (Kathy Monsivais) Problem List: (1) OSVALDO (acute kidney injury) ICD Codes: N17.9 - Acute kidney failure, unspecified Status: Acute Plan: CKD stage 3 with creatinine noted in 06/26 at 1.40 trace proteinuria noted. Most likely related to pre renal, need to rule out heptorenal syndrome Acute Kidney injury with FeNa of 0.06% suggesting prerenal however can also be low with ATN in cirrhosis. With past medical history of n/v/d prerenal is likely Creatinine slightly improved at 2.06 from 2.26 Renal US: . No acute abnormality is seen in the kidneys. Plan Continue to hold losartan and HCTZ Will continue to monitor UOP and BMP Avoid nephrotoxins when possible Oral Fluids encouraged Serology ordered. Patient seen and examined, agree with above. Has Chronic kidney disease and develop OSVALDO. Follow the urine out put and BMP. (2) Anemia ICD Codes: D64.9 - Anemia, unspecified Status: Acute Plan: Anemia will monitor (3) Type 2 diabetes mellitus ICD Codes: E11.9 - Type 2 diabetes mellitus without complications Status: Chronic Plan: Maintain BS between 140mg/dl to 180mg/dl (4) HTN (hypertension) ICD Codes: I10 - Essential (primary) hypertension Plan: Continue current medication Blood pressure labile (Pantera Wilkins MD) Kathy Monsivais Nov 04, 2017 16:28 Pantera Wilkins MD Nov 04, 2017 18:43
--- NOTE | 2017-11-04 16:59 | HHI.GIFU ---
Subjective Remarks resting in bed family in decreased appetite No vomiting HGB 9.8 (Geovanna Milian) Objective Vitals I&O Vital Signs Date Time Temp Pulse Resp B/P (MAP) Pulse Ox O2 Delivery O2 Flow Rate FiO2 11/04/17 15:45 98.2 74 18 132/64 (86) 99 11/04/17 12:25 98.1 92 18 110/67 (81) 96 11/04/17 07:38 97.9 81 18 97/61 (73) 97 11/04/17 04:40 98.0 94 14 110/68 (82) 98 11/04/17 02:18 76 117/72 (87) 11/04/17 00:51 85 18 86/51 (63) 97 11/04/17 00:50 77 18 88/53 (65) 97 11/04/17 00:37 97.6 73 14 92/53 (66) 96 11/03/17 20:32 97.6 91 14 157/83 (107) 96 I/O 11/03/17 11/03/17 11/03/17 11/04/17 11/04/17 11/04/17 07:00 15:00 23:00 07:00 15:00 23:00 Intake Total 340 ml 500 ml Balance 340 ml 500 ml Intake Oral 240 ml IV Total 500 ml Other 100 ml # Voids 2 1 # Bowel Movements 1 Laboratory Laboratory Tests Test 11/04/17 08:37 11/04/17 09:00 11/04/17 12:15 11/04/17 13:15 White Blood Count 5.1 Red Blood Count 3.02 Hemoglobin 9.8 Hematocrit 29.4 Mean Corpuscular Volume 97.3 Mean Corpuscular Hemoglobin 32.5 Mean Corpuscular Hemoglobin Concent 33.4 Red Cell Distribution Width 18.0 Platelet Count 218 Mean Platelet Volume 8.7 Neutrophils (%) (Auto) 79.8 Lymphocytes (%) (Auto) 12.0 Monocytes (%) (Auto) 7.0 Eosinophils (%) (Auto) 0.9 Basophils (%) (Auto) 0.3 Neutrophils # (Auto) 4.1 Lymphocytes # (Auto) 0.6 Monocytes # (Auto) 0.4 Eosinophils # (Auto) 0.0 Basophils # (Auto) 0.0 CBC Comment DIFF FINAL Differential Comment Blood Urea Nitrogen 61 Creatinine 2.06 Random Glucose 94 Total Protein 6.7 Albumin 1.9 Calcium Level 8.3 Alkaline Phosphatase 270 Aspartate Amino Transf (AST/SGOT) 35 Alanine Aminotransferase (ALT/SGPT) 29 Total Bilirubin 0.5 Sodium Level 138 Potassium Level 4.5 Chloride Level 103 Carbon Dioxide Level 26.8 Anion Gap 8 Estimat Glomerular Filtration Rate 24 Urine Color YELLOW Urine Turbidity HAZY Urine pH 5.5 Urine Specific [place] 1.020 Urine Protein TRACE Urine Glucose (UA) NEG Urine Ketones NEG Urine Occult Blood NEG Urine Nitrite NEG Urine Bilirubin NEG Urine Urobilinogen 2.0 Urine Leukocyte Esterase SMALL Urine RBC 1 Urine WBC 3 Urine Squamous Epithelial Cells 1 Urine Amorphous Sediment RARE Urine Bacteria FEW Urine Hyaline Casts 10 Urine Mucus FEW Microscopic Urinalysis Comment CULT NOT INDICATED Urine Random Creatinine 145.1 Urine Random Sodium 6 Stool C. difficile Toxin (PCR) NEGATIVE Stl C. difficile Toxin Epiderm 027 PRESUMPTIVE NEGATIVE Prothrombin Time 10.9 Prothromb Time International Ratio 1.1 B-Type Natriuretic Peptide 57 Imaging Last Impressions Cyst Biopsy Asp-Paracentesis US 11/04/17 0000 Signed Impressions: Service Date/Time: Saturday, November 04, 2017 10:43 - CONCLUSION: Uncomplicated ultrasound guided paracentesis. Yaw Josue MD Chest X-Ray 11/04/17 0000 Signed Impressions: Service Date/Time: Saturday, November 04, 2017 08:35 - CONCLUSION: No acute disease. Jose Waggoner Jr., MD Renal Ultrasound 11/03/17 0000 Signed Impressions: Service Date/Time: Friday, November 03, 2017 17:41 - CONCLUSION: 1. No acute abnormality is seen in the kidneys. 2. 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 This can be seen on the CT examination. 3. Moderate ascites. Yayo Hall MD Abdomen/Pelvis CT 11/01/17 [id number] Signed Impressions: Service Date/Time: Wednesday, November 01, 2017 19:35 - CONCLUSION: Moderate ascites the small shrunken liver stable from the previous exam. Marco Chaudhari MD FACR Physical Exam HEENT: Pupils round and reactive to light; normocephalic; atraumatic NECK: Neck is supple CHEST: Diminished BS CARDIAC: Regular rate and rhythm ABDOMEN: large for her size, taut, nondistended, mild lower tenderness; bowel sounds are present in all four quadrants. EXTREMITIES: No edema. SKIN: pale VOLUNTEER SERVICES ASSISTANT: No focal deficits; alert and oriented times three. (Geovanna Milian) Assessment and Plan Plan Assessment: - Weakness- main complaint on arrival- states so severe she has been having difficulty standing- relates it to all the vomiting she has been having - Nausea and vomiting- states this has been going on for over a month. States she is now unable to keep pills or food down. She reports what sounds to be a regurgitation of food because states the food is getting stuck and she is unable to swallow completely. Denies hematemesis and coffee ground emesis. History of EGD with dilatation for esophageal stricture Last EGD October [address] Caldwell --> Esophageal varices, gastritis. Hiatal hernia. Pathology consistent with chemical gastropathy. Pt with DM- ? of gastroparesis in the past- GES done in 2017 normal. - Ascites- Has had three paracentesis this month, last one October 28 with over 6 L removed, pt denies feeling like her abdomen is swollen at this time although it does appear distended, states not as bad as normal - Cirrhosis secondary to autoimmune hepatitis - Lower abdominal pain- states for multiple months- Last colonoscopy done earlier this month revealed diverticulum in sigmoid colon, otherwise normal. Pt does report constipation for the past couple weeks, was previously managed with Lactulose QID but has been unable to keep this down CT abdomen and pelvis (11/01) Moderate ascites the small shrunken liver stable from previous exam - CKD- GFR currently 23- unable to have Lasix EGD 11/03/17, Grade 1 esophageal varix ,Food residue , possible gastroparesis Abnormal antral mucosa of unclear significance possible gastritis Paracentesis, 11/04/17, sucessful, mild lower Abd. soreness, decreased appetite PLAN: Clear liquids Await biopsies Continue PPI Gastroparesis precautions Consider Reglan or bethanechol or erythromycin depending on symptoms Follow-up with GI post discharge Encouraged small drinks and clear/full liquids to build up appetite Supportive care Pt has been seen and examined by myself and Dr. Caldwell and this note is written on his behalf (Geovanna Milian) Physician Comments Patient seen and examined Agree with above Continue with current supportive care Monitor labs (Jered Caldwell MD) Geovanna Milian Nov 04, 2017 16:59 Jered Caldwell MD Nov 04, 2017 23:01
[2017-11-04] MEDS ORDERED: LACTULOSE SYRUP 20 GM/30 ML CUP PO SCH (21:00)
[2017-11-04] MEDS: LATANOPROST 0.005% OPHT SOLN 2.5 ML BTL EACH EYE SCH (22:22)
[2017-11-04 22:30] LABS: HEMOGLOBIN A1C 8.2 % (4.3-6.0)
[2017-11-05 03:00] VITALS: BP 112/55; PULSE 95; RESP 16; TEMP 98.3; O2SAT 97
[2017-11-05] MEDS: LEVOTHYROXINE SODIUM 88 MCG TAB PO SCH (06:04)
[2017-11-05] MEDS: ALBUMIN 25% INJ 100 ML IV SCH ×3 (06:04→22:26)
[2017-11-05 07:56] VITALS: BP 110/59; PULSE 89; RESP 18; TEMP 98.2; O2SAT 98
[2017-11-05] MEDS: LACTULOSE SYRUP 20 GM/30 ML CUP PO SCH ×3 (09:00→18:38)
--- NOTE | 2017-11-05 09:04 | HHI.PR ---
Subjective Remarks Follow-up on patient with ascites, intractable nausea/vomiting. Patient seen and examined. Patient states she feels more fatigued today. She denies any fever or chills. Her cough and shortness of breath has resolved since getting the repeat paracentesis yesterday. She has discussed undergoing TIPS procedure with her physician at [place]. She has continued nausea and little appetite. She reports one soft BM today. C diff was negative. She denies any dysuria. She is afebrile. VSS. Objective Vitals Vital Signs Date Time Temp Pulse Resp B/P (MAP) Pulse Ox O2 Delivery O2 Flow Rate FiO2 11/05/17 07:56 98.2 89 18 110/59 (76) 98 11/05/17 03:00 98.3 95 16 112/55 (74) 97 11/04/17 23:13 98.3 84 16 113/63 (80) 98 11/04/17 19:28 97.8 80 16 141/75 (97) 98 11/04/17 15:45 98.2 74 18 132/64 (86) 99 11/04/17 12:25 98.1 92 18 110/67 (81) 96 I/O 11/04/17 11/04/17 11/04/17 11/05/17 11/05/17 11/05/17 07:00 15:00 23:00 07:00 15:00 23:00 Intake Total 500 ml Balance 500 ml IV Total 500 ml # Voids 4 # Bowel Movements 1 Result Diagram: 11/04/17 0837 11/04/17 0837 Imaging Last Impressions Cyst Biopsy Asp-Paracentesis US 11/04/17 0000 Signed Impressions: Service Date/Time: Saturday, November 04, 2017 10:43 - CONCLUSION: Uncomplicated ultrasound guided paracentesis. Yaw Josue MD Chest X-Ray 11/04/17 0000 Signed Impressions: Service Date/Time: Saturday, November 04, 2017 08:35 - CONCLUSION: No acute disease. Jose Waggoner Jr., MD Renal Ultrasound 11/03/17 0000 Signed Impressions: Service Date/Time: Friday, November 03, 2017 17:41 - CONCLUSION: 1. No acute abnormality is seen in the kidneys. 2. 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 This can be seen on the CT examination. 3. Moderate ascites. Yayo Hall MD Abdomen/Pelvis CT 11/01/17 [id number] Signed Impressions: Service Date/Time: Wednesday, November 01, 2017 19:35 - CONCLUSION: Moderate ascites the small shrunken liver stable from the previous exam. Marco Chaudhari MD FACR Objective Remarks GENERAL: Thin somewhat ill appearing female patient in NAD. Awake and alert. Lying in bed. SKIN: Warm and dry. No rash. HEENT: Normocephalic. Atraumatic. EOMI. Mucous membranes pink and moist. CARDIOVASCULAR: Regular rate and rhythm. S1, S2 noted. No murmur appreciated. RESPIRATORY: Nonlabored. Clear to auscultation bilaterally. GASTROINTESTINAL: Abdomen soft, mildly distended. Hypoactive bowel sounds x4. ( +)mild lower abdominal tenderness to palpation. s/p paracentesis yesterday, site with dressing C/D/I. MUSCULOSKELETAL: No obvious deformities. Extremities without clubbing, cyanosis or edema. NEUROLOGICAL: Awake and alert. No obvious cranial nerve deficits. Motor grossly within normal limits. Normal speech. PSYCHIATRIC: Appropriate mood and affect; insight and judgment normal. Medications and IVs Current Medications Medications (Trade) Dose Ordered Sig/Miranda Route Start Time Stop Time Status Last Admin (D50w (Vial) Inj) 50 ml UNSCH PRN IV PUSH 11/01/17 20:30 (Glucagon Inj) 1 mg UNSCH PRN OTHER 11/01/17 20:30 (NovoLOG SUPPLEMENTAL SCALE) 1 ACHS SLIDING SCALE SQ 11/01/17 21:00 11/03/17 22:59 (Compazine Inj) 10 mg Q4H PRN IV PUSH 11/01/17 20:30 (NS Flush) 2 ml UNSCH PRN IV FLUSH 11/01/17 20:30 (NS Flush) 2 ml BID IV FLUSH 11/01/17 21:00 11/04/17 22:22 (Zofran Inj) 4 mg Q6H PRN IVP 11/01/17 20:30 11/04/17 10:28 (Roxicodone) 5 mg Q4H PRN PO 11/01/17 20:30 (Sherlyn-Colace) 1 tab BID PO 11/01/17 21:00 Future Hold 11/03/17 21:01 (Milk Of Magnmarshall Liq) 30 ml Q12H PRN PO 11/01/17 20:30 (Senokot) 17.2 mg Q12H PRN PO 11/01/17 20:30 (Dulcolax Supp) 10 mg DAILY PRN RECTAL 11/01/17 20:30 (Norvasc) 2.5 mg DAILY PO 11/02/17 09:00 Future Hold 11/03/17 09:05 (Catapres) 0.1 mg BID PO 11/01/17 21:00 Future Hold 11/03/17 21:01 (Xalatan 0.005% Opth Soln) 1 drop HS EACH EYE 11/01/17 21:00 11/04/17 22:22 (Synthroid) 88 mcg DAILY@0600 PO 11/02/17 06:00 11/05/17 06:04 (Deltasone) 10 mg DAILY PO 11/02/17 09:00 11/04/17 09:08 (Zoloft) 50 mg DAILY PO 11/02/17 09:00 11/04/17 09:08 (Aldactone) 25 mg DAILY PO 11/02/17 09:00 11/04/17 09:08 (Ativan Inj) 0.5 mg Q2H PRN IV PUSH 11/01/17 21:00 11/01/17 21:36 (Antivert) 25 mg Q6HR PRN PO 11/01/17 21:00 (Roxicodone) 10 mg Q4H PRN PO 11/01/17 21:00 11/03/17 21:03 (Levemir Inj) 20 units DAILY SQ 11/02/17 11:45 Future Hold 11/04/17 09:04 Lactated Ringer's 1,000 ml @ 30 mls/hr Q24H PRN IV 11/02/17 17:00 11/05/17 16:59 Sodium Chloride 500 ml @ 30 mls/hr [id number] PRN IV 11/02/17 17:00 11/05/17 16:59 (Lopressor) 25 mg SIGNAL MECHANIC PRN PO 11/02/17 17:15 11/05/17 17:14 (Betadine 5% Antisepsis Kit) 1 applic SIGNAL MECHANIC PRN EACH NARE 11/02/17 17:15 11/05/17 17:14 (Chlorhexidine 2% Cloth) 3 pack SIGNAL MECHANIC PRN TOPICAL 11/02/17 17:15 11/05/17 17:14 (Levemir Inj) 5 units HS SQ 11/03/17 21:00 Future Hold 11/03/17 22:59 (Protonix) 40 mg DAILY PO 11/05/17 09:00 Albumin Human 100 ml @ 60 mls/hr Q8H IV 11/04/17 13:00 11/06/17 12:59 11/05/17 06:04 (Lactulose Liq) 30 ml TID PO 11/04/17 18:00 11/04/17 18:42 A/P Problem List: (1) Autoimmune hepatitis ICD Code: K75.4 - Autoimmune hepatitis Status: Acute Permanent Comment: 07/24/16: Evaluated at [facility] for liver transplant. Declined, too early for transplant. 06/09/16: UGD_minimal grade 1 esophageal viruses, normal stomach, normal examined duodenum Colonoscopy: one 3 mm polyp in the transverse colon, ( hyperplastic polyp), examination, otherwise normal. MRI abdomen without plus with/CSY: Cirrhotic hepatic morphology. No suspicious lipid lesions. Conventional hepatic arterial anatomy. Portal veins and hepatic veins are patent. Prominent portal-systemic collateral veins about the EEG junction. Patent paraumbilical collateral. Splenomegaly. Trace ascites. Adult transthoracic echocardiogram: EF 70%. Normal global and regional left ventricular systolic function. Normal left ventricular diastolic function. Last Edited By: Naa Enrique on Jul 29, 2016 08:32 (2) Intractable nausea and vomiting ICD Code: R11.2 - Nausea with vomiting, unspecified (3) Ascites ICD Code: R18.8 - Other ascites (4) Hyperkalemia ICD Code: E87.5 - Hyperkalemia (5) Renal insufficiency ICD Code: N28.9 - Disorder of kidney and ureter, unspecified (6) DM (diabetes mellitus) ICD Code: E11.9 - Type 2 diabetes mellitus without complications Assessment and Plan 67-year-old female with a PMH of HTN, HLD, Autoimmune Hepatitis, Cirrhosis, Recurrent Ascites, Anxiety, Depression, CKD and DM who presented to the ER with complaints of dizziness in addition to nausea and vomiting for approx 2 days. Recent admit 10/28-10/29/17 for ascites requiring paracentesis, s/p 6L removed. Intractable Nausea/Vomiting with Dysphagia: unclear etiology. Hx of recent EGD on 10/08 showed esophageal varices, hiatal hernia, and gastritis. Also has hx of esophageal stricture and dilatation. ?Gastroparesis. -CT abd/pelvis 11/01 images reviewed, shows moderate ascites with small shrunken liver; stable from previous exam. -Antiemetics prn and pain control prn -GI following, s/p EGD showing grade 1 varices, residual food suggestive gastroparesis, abnormal antral mucosa possible gastritis. Recs: PPI, gastroparesis precautions, consider Reglan, bethanechol or erythromycin, f/u as outpt -UA unremarkable -tolerating clear liquids, diet advanced to soft per GI Recurrent Ascites with Cirrhosis secondary to Autoimmune Hepatitis: s/p paracentesis on 10/16 and 10/28, 6L removed. -last paracentesis yesterday 5300L removed. Has discussed TIPS procedure with her [place] physician. -continue patient's home meds including lactulose qid, spironolactone, mercaptopurine. No lasix due to OSVALDO and soft BP. Diarrhea, improved -on lactulose, dose decreased to TID. Discussed with patient importance of 2 -3 soft BMs daily, will need to increase dose of Lactulose or add Rifaximin if not enough stools. -C diff negative OSVALDO on CKD stage III: Cr 2.13, baseline around 1.4. Likely secondary to dehydration with recent nausea/vomiting and poor oral intake. Suspect hepatorenal syndrome -todays creatinine pending -FENa 0.1%, suggestive of prerenal -Nephrology following, appreciate assistance -Continue IV Albumin -monitor UOP -avoid nephrotoxins, continue to hold home HCTZ and losartan Hyperkalemia: K 5.6 upon arrival, likely secondary to dehydration, patient also on spironolactone -repeat BMP shows improvement with K 4.5 -continue to monitor Diabetes Mellitus: chronic, patient with very labile blood glucose on prior admissions -A1c level 8.2 -Hypoglycemic overnight, BS as low as 40. Did not receive nighttime dose of Levemir last night. Holding all long-acting insulin at this time. -monitor Accu-checks and cover with SSI Hypertension: chronic -Clonidine and Norvasc on hold secondary to low BP. HCTZ/losartan on hold for OSVALDO. -monitor BP, adjust antihypertensives as needed Hypothyroidism: chronic -continue patient's Synthroid -TSH 5.680 10/19/17 Temporal Arteritis: chronic -continue patient's home prednisone 10mg daily DVT Prophylaxis: teds/SCDs. Heparin sq Discharge Planning Pending improvement in clinical course, GI clearance and Nephrology clearance Lia Lopez Nov 05, 2017 09:04
--- NOTE | 2017-11-05 10:24 | HHI.GIFU ---
Subjective Remarks Pt states she is having some lower abdominal pain today, she said it was better last night Reports loose stools, approx 6 a day Tolerating clear liquids (Patricia Castellon) Objective Vitals I&O Vital Signs Date Time Temp Pulse Resp B/P (MAP) Pulse Ox O2 Delivery O2 Flow Rate FiO2 11/05/17 07:56 98.2 89 18 110/59 (76) 98 11/05/17 03:00 98.3 95 16 112/55 (74) 97 11/04/17 23:13 98.3 84 16 113/63 (80) 98 11/04/17 19:28 97.8 80 16 141/75 (97) 98 11/04/17 15:45 98.2 74 18 132/64 (86) 99 11/04/17 12:25 98.1 92 18 110/67 (81) 96 I/O 11/04/17 11/04/17 11/04/17 11/05/17 11/05/17 11/05/17 07:00 15:00 23:00 07:00 15:00 23:00 Intake Total 500 ml Balance 500 ml IV Total 500 ml # Voids 4 # Bowel Movements 1 Laboratory Laboratory Tests Test 11/04/17 12:15 11/04/17 13:15 Prothrombin Time 10.9 Prothromb Time International Ratio 1.1 B-Type Natriuretic Peptide 57 Imaging Last Impressions Cyst Biopsy Asp-Paracentesis US 11/04/17 0000 Signed Impressions: Service Date/Time: Saturday, November 04, 2017 10:43 - CONCLUSION: Uncomplicated ultrasound guided paracentesis. Yaw Josue MD Chest X-Ray 11/04/17 0000 Signed Impressions: Service Date/Time: Saturday, November 04, 2017 08:35 - CONCLUSION: No acute disease. Jose Waggoner Jr., MD Renal Ultrasound 11/03/17 0000 Signed Impressions: Service Date/Time: Friday, November 03, 2017 17:41 - CONCLUSION: 1. No acute abnormality is seen in the kidneys. 2. 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 This can be seen on the CT examination. 3. Moderate ascites. Yayo Hall MD Abdomen/Pelvis CT 11/01/17 [id number] Signed Impressions: Service Date/Time: Wednesday, November 01, 2017 19:35 - CONCLUSION: Moderate ascites the small shrunken liver stable from the previous exam. Marco Chaudhari MD FACR Physical Exam HEENT: Normocephalic; atraumatic CHEST: Even/unlabored CARDIAC: RRR ABDOMEN: Soft, nondistended, mild lower abdominal TTP, bowel sounds active SKIN: Pale ENVIRONMENTAL PROJECT MANAGER: No focal deficits; alert and oriented times three. (Patricia Castellon [facility]) Assessment and Plan Plan Assessment: - Weakness- main complaint on arrival- states so severe she has been having difficulty standing- relates it to all the vomiting she has been having - Nausea and vomiting- states this has been going on for over a month. States she is now unable to keep pills or food down. She reports what sounds to be a regurgitation of food because states the food is getting stuck and she is unable to swallow completely. Denies hematemesis and coffee ground emesis. History of EGD with dilatation for esophageal stricture Last EGD October [address] Caldwell --> Esophageal varices, gastritis. Hiatal hernia. Pathology consistent with chemical gastropathy. Pt with DM- ? of gastroparesis in the past- GES done in 2017 normal. - Ascites- Has had three paracentesis this month, last one October 28 with over 6 L removed, pt denies feeling like her abdomen is swollen at this time although it does appear distended, states not as bad as normal - Cirrhosis secondary to autoimmune hepatitis - Lower abdominal pain- states for multiple months- Last colonoscopy done earlier this month revealed diverticulum in sigmoid colon, otherwise normal. Pt does report constipation for the past couple weeks, was previously managed with Lactulose QID but has been unable to keep this down CT abdomen and pelvis (11/01) Moderate ascites the small shrunken liver stable from previous exam - CKD- GFR currently 23- unable to have Lasix EGD (11/03) --> Esophageal varix 1, food residue suggestive of gastroparesis, abnormal antral mucosa of unclear significance, possible gastritis. Pathology (antrum) Ulcerated gastric antral mucosal biopsies with severe acute suppurative non-specific gastritis negative for intestinal metaplasia and dysplasia, negative for H. Pylori Paracentesis (11/04) --> 5300 cc of clear, yellow fluid removed. Therapeutic only. (11/05) Pt reports lower abdominal pain this morning, states was feeling better last night. Tolerating clear liquids. Having multiple loose BMs, states 6 a day although chart only has one documented. Pt also complaining of poor appetite with early satiety. Nephrology now following for impaired renal function. PLAN: Advance diet to soft foods- sodium restriction Spironolactone Protonix Monitor stool count- hesitant to add Bethanechol based on pts reports of diarrhea Further recommendations based on clinical course Pt has been seen and examined by myself and Dr. Caldwell and this note is written on his behalf (Patricia Castellon) Physician Comments Seen and examined Agree with above Continue with current supportive care Monitor labs The diarrhea potentially could be related to her diabetes or could be related to medications and treatment Patient will need to be on a proton pump inhibitor Patient needs to be on a low-salt diet Patient will benefit from spironolactone I would increase the dose to at least 100 mg and possibly even a small dose of Lasix possibly 20 mg Need to limit IV fluids (Jered Caldwell MD) Patricia Castellon Nov 05, 2017 10:24 Jered Caldwell MD Nov 05, 2017 21:49
[2017-11-05] MEDS: INSULIN ASPART SUPPLEMENTAL SCALE SQ SCH ×4 (10:25→21:59)
[2017-11-05] MEDS: PANTOPRAZOLE SOD 40 MG DELAYED RELEASE TAB PO SCH (10:26)
[2017-11-05] MEDS: SERTRALINE HCL 50 MG TAB PO SCH (10:26)
[2017-11-05] MEDS: predniSONE 10 MG TAB PO SCH (10:26)
[2017-11-05] MEDS: SODIUM CHLORIDE 0.9% FLUSH 10 ML FLUSH IV FLUSH SCH ×2 (10:26→22:26)
[2017-11-05] MEDS: SPIRONOLACTONE 25 MG TAB PO SCH (10:26)
[2017-11-05 11:16] VITALS: BP 123/65; PULSE 87; RESP 18; TEMP 98.4; O2SAT 98
--- NOTE | 2017-11-05 11:31 | HHI.NPPN ---
Subjective Renal Failure: Chronic, Acute, Stage III History of Present Illness Patient is a 67-year-old female with a PMH of HTN, Hyperlipidemia, Autoimmune Hepatitis, Cirrhosis, Recurrent Ascites, Anxiety, Depression, CKD stage 3 and DM. Presented to the ER with complaints of dizziness,nausea and vomiting. Recent admission 10/28-10/29/17 for ascites requiring paracentesis, s/p 6L removed. Nephrology is consulted for acute kidney injury with creatinine today of 2.06 abd potassium WNL. On admission K+ 5.6. Creatinine 1.74. Reviewing records patient appears to have CKD stage 3. Creatinine in 06/26 at 1.40. Renal US with no acute abnormality. Patient is s/p paracentesis today for 5300L. Additional Remarks Patient is resting comfortably. Poor PO intake. labs are pending. (Kathy Monsivais) Review of Systems General Constitutional: Fatigue (Kathy Monsivais) Respiratory Respiratory Remarks No SOB (Kathy Monsivais) Cardiovascular Cardiac Remarks No CP (Kathy Monsivais) Gastrointestinal Gastrointestinal: Nausea & Vomiting GI Remarks Poor appetite (Kathy Monsivais) Objective Data Data Vital Signs Date Time Temp Pulse Resp B/P (MAP) Pulse Ox O2 Delivery O2 Flow Rate FiO2 11/05/17 11:16 98.4 87 18 123/65 (84) 98 11/05/17 07:56 98.2 89 18 110/59 (76) 98 11/05/17 03:00 98.3 95 16 112/55 (74) 97 11/04/17 23:13 98.3 84 16 113/63 (80) 98 11/04/17 19:28 97.8 80 16 141/75 (97) 98 11/04/17 15:45 98.2 74 18 132/64 (86) 99 11/04/17 12:25 98.1 92 18 110/67 (81) 96 (Kathy Monsivais) -: 11/04/17 0837 11/04/17 0837 Imaging Last Impressions Cyst Biopsy Asp-Paracentesis US 11/04/17 0000 Signed Impressions: Service Date/Time: Saturday, November 04, 2017 10:43 - CONCLUSION: Uncomplicated ultrasound guided paracentesis. Yaw Josue MD Chest X-Ray 11/04/17 0000 Signed Impressions: Service Date/Time: Saturday, November 04, 2017 08:35 - CONCLUSION: No acute disease. Jose Waggoner Jr., MD Renal Ultrasound 11/03/17 0000 Signed Impressions: Service Date/Time: Friday, November 03, 2017 17:41 - CONCLUSION: 1. No acute abnormality is seen in the kidneys. 2. 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 This can be seen on the CT examination. 3. Moderate ascites. Yayo Hall MD Abdomen/Pelvis CT 11/01/17 1736 Signed Impressions: Service Date/Time: Wednesday, November 01, 2017 19:35 - CONCLUSION: Moderate ascites the small shrunken liver stable from the previous exam. Marco Chaudhari MD FACR (GellermannKathy M. IS SUPPORT ANALYST) Physical Exam General Appearance: No Acute Distress, Anxious (GellermannKathy M. IS SUPPORT ANALYST) Pulmonary Resp Exam: Breath Sounds Equal, No Distress, Diminished Breath Sounds (GellermannKathy M. IS SUPPORT ANALYST) Cardiology CV Exam: Regular (GellermannKathy M. IS SUPPORT ANALYST) Gastrointestinal/Abdomen GI Exam: Soft, Non-Tender (Gellermann,Kathy M. IS SUPPORT ANALYST) Genitourinary Exam: Flank Non-Tender (GellermannKathy M. IS SUPPORT ANALYST) Integumentary Skin Exam: Clear, Warm, Dry (GellermannKathy M. IS SUPPORT ANALYST) Extremeties Extremities Exam: No Edema (GellermannKathy M. IS SUPPORT ANALYST) Neurologic Neuro Exam: Alert, Awake, Oriented (GellermannKathy M. IS SUPPORT ANALYST) Psychiatric Psych Exam: Appropriate Responses (GellermannKathy M. IS SUPPORT ANALYST) Assessment/Plan Problem List: (1) OSVALDO (acute kidney injury) ICD Codes: N17.9 - Acute kidney failure, unspecified Status: Acute Plan: CKD stage 3 with creatinine noted in 06/26 at 1.40 trace proteinuria noted. Most likely related to pre renal, need to rule out heptorenal syndrome Acute Kidney injury with FeNa of 0.06% suggesting prerenal however can also be low with ATN in cirrhosis. With past medical history of n/v/d prerenal is likely Renal US: . No acute abnormality is seen in the kidneys. Plan Continue albumin Continue to hold losartan and HCTZ Will continue to monitor UOP and BMP Avoid nephrotoxins when possible Oral Fluids encouraged Labs are pending if rise in creatinine may benefit from gentle hydration with poor PO intake. (2) Anemia ICD Codes: D64.9 - Anemia, unspecified Status: Acute Plan: Anemia will monitor (3) Type 2 diabetes mellitus ICD Codes: E11.9 - Type 2 diabetes mellitus without complications Status: Chronic Plan: Maintain BS between 140mg/dl to 180mg/dl (4) HTN (hypertension) ICD Codes: I10 - Essential (primary) hypertension Plan: Continue current medication Blood pressure labile (Kathy Monsivais) Problem List: (1) OSVALDO (acute kidney injury) ICD Codes: N17.9 - Acute kidney failure, unspecified Status: Acute Plan: CKD stage 3 with creatinine noted in 06/26 at 1.40 trace proteinuria noted. Most likely related to pre renal, need to rule out heptorenal syndrome Acute Kidney injury with FeNa of 0.06% suggesting prerenal however can also be low with ATN in cirrhosis. With past medical history of n/v/d prerenal is likely Renal US: . No acute abnormality is seen in the kidneys. Plan Continue albumin Continue to hold losartan and HCTZ Will continue to monitor UOP and BMP Avoid nephrotoxins when possible Oral Fluids encouraged Labs are pending if rise in creatinine may benefit from gentle hydration with poor PO intake. Patient seen and examined, agree with above. No new labs, follow in AM. (2) Anemia ICD Codes: D64.9 - Anemia, unspecified Status: Acute Plan: Anemia will monitor (3) Type 2 diabetes mellitus ICD Codes: E11.9 - Type 2 diabetes mellitus without complications Status: Chronic Plan: Maintain BS between 140mg/dl to 180mg/dl (4) HTN (hypertension) ICD Codes: I10 - Essential (primary) hypertension Plan: Continue current medication Blood pressure labile (Pantera Wilkins MD) Kathy Monsivais Nov 05, 2017 11:31 Pantera Wilkins MD Nov 05, 2017 18:03
[2017-11-05] MEDS: INSULIN DETEMIR 100 UNITS/ML VIAL SQ SCH (11:45)
[2017-11-05 16:00] VITALS: BP 136/64; PULSE 95; RESP 16; TEMP 98; O2SAT 95
[2017-11-05 20:00] VITALS: BP 165/75; PULSE 16; RESP 16; TEMP 98.3; O2SAT 98
[2017-11-05 21:01] LABS: AUTOMATED NEUTROPHIL # 3.6 TH/MM3 (1.8-7.7); BASOPHIL % 0.2 % (0.0-2.0); EOSINOPHIL % 0.1 % (0.0-4.0); HEMATOCRIT 24.5 % (35.0-46.0); HEMOGLOBIN 8.5 GM/DL (11.6-15.3); LYMPH % 7.5 % (9.0-44.0); LYMPHOCYTE # 0.3 TH/MM3 (1.0-4.8); MEAN CELL VOLUME 95.7 FL (80.0-100.0); MEAN CORPUSCULAR HEMOGLOBIN 33.1 PG (27.0-34.0); MEAN CORPUSCULAR HGB CONC 34.5 % (32.0-36.0); MEAN PLATELET VOLUME 8.9 FL (7.0-11.0); MONO % 7.3 % (0.0-8.0); MONOCYTE # 0.3 TH/MM3 (0-0.9); NEUT % 84.9 % (16.0-70.0); PLATELET COUNT 185 TH/MM3 (150-450); RED BLOOD COUNT 2.57 MIL/MM3 (4.00-5.30); RED CELL DISTRIBUTION WIDTH 17.5 % (11.6-17.2); WHITE BLOOD COUNT 4.2 TH/MM3 (4.0-11.0)
[2017-11-05 21:29] LABS: BICARBONATE 24.6 MEQ/L (21.0-32.0); CALCIUM 8.3 MG/DL (8.5-10.1); CREATININE 1.51 MG/DL (0.50-1.00); PHOSPHORUS 1.9 MG/DL (2.5-4.9)
[2017-11-05] MEDS: LATANOPROST 0.005% OPHT SOLN 2.5 ML BTL EACH EYE SCH (21:58)
[2017-11-05] MEDS: HEPARIN SODIUM - SQ 10,000 UNITS/ML VIAL SQ SCH (22:26)
[2017-11-06] VITALS: BP 122/66; PULSE 92; RESP 16; TEMP 98.7; O2SAT 98
[2017-11-06] MEDS: ALBUMIN 25% INJ 100 ML IV SCH (06:15)
[2017-11-06] MEDS: LEVOTHYROXINE SODIUM 88 MCG TAB PO SCH (06:16)
[2017-11-06 08:00] VITALS: BP 127/65; PULSE 89; RESP 18; TEMP 97.9; O2SAT 97
[2017-11-06] MEDS: INSULIN ASPART SUPPLEMENTAL SCALE SQ SCH ×4 (08:00→21:54)
[2017-11-06 08:35] LABS: BICARBONATE 26.3 MEQ/L (21.0-32.0); CALCIUM 8.6 MG/DL (8.5-10.1); CREATININE 1.25 MG/DL (0.50-1.00)
[2017-11-06] MEDS: LACTULOSE SYRUP 20 GM/30 ML CUP PO SCH ×3 (08:37→17:04)
[2017-11-06] MEDS: predniSONE 10 MG TAB PO SCH (08:38)
[2017-11-06] MEDS: PANTOPRAZOLE SOD 40 MG DELAYED RELEASE TAB PO SCH (08:39)
[2017-11-06] MEDS: SERTRALINE HCL 50 MG TAB PO SCH (08:39)
[2017-11-06] MEDS: HEPARIN SODIUM - SQ 10,000 UNITS/ML VIAL SQ SCH (08:39)
[2017-11-06] MEDS: SPIRONOLACTONE 25 MG TAB PO SCH (08:51)
[2017-11-06] MEDS: SODIUM CHLORIDE 0.9% FLUSH 10 ML FLUSH IV FLUSH SCH ×2 (08:51→19:44)
[2017-11-06] MEDS: INSULIN DETEMIR 100 UNITS/ML VIAL SQ SCH (08:51)
--- NOTE | 2017-11-06 10:00 | HHI.NPPN ---
Subjective Renal Failure: Chronic, Acute, Stage III History of Present Illness Patient is a 67-year-old female with a PMH of HTN, Hyperlipidemia, Autoimmune Hepatitis, Cirrhosis, Recurrent Ascites, Anxiety, Depression, CKD stage 3 and DM. Presented to the ER with complaints of dizziness,nausea and vomiting. Recent admission 10/28-10/29/17 for ascites requiring paracentesis, s/p 6L removed. Nephrology is consulted for acute kidney injury with creatinine today of 2.06 abd potassium WNL. On admission K+ 5.6. Creatinine 1.74. Reviewing records patient appears to have CKD stage 3. Creatinine in 06/26 at 1.40. Renal US with no acute abnormality. Patient is s/p paracentesis today for 5300L. Additional Remarks Patient is resting comfortably and reports feeling better today. Creatinine has been improving. (Kathy Monsivais) Review of Systems General Constitutional: Fatigue (Kathy Monsivais) Respiratory Respiratory Remarks No SOB (Kathy Monsivais) Cardiovascular Cardiac Remarks No CP (Kathy Monsivais) Gastrointestinal GI Remarks appetite improving (Kathy Monsivais) Objective Data Data Vital Signs Date Time Temp Pulse Resp B/P (MAP) Pulse Ox O2 Delivery O2 Flow Rate FiO2 11/06/17 00:00 98.7 92 16 122/66 (84) 98 11/05/17 20:00 98.3 16 16 165/75 (105) 98 11/05/17 16:00 98.0 95 16 136/64 (88) 95 11/05/17 11:16 98.4 87 18 123/65 (84) 98 (Kathy Monsivais) -: 11/05/17 19511/06/17 0621 Physical Exam General Appearance: No Acute Distress, Anxious (Kathy Monsivais) Pulmonary Resp Exam: Breath Sounds Equal, No Distress, Diminished Breath Sounds (Kathy Monsivais) Cardiology CV Exam: Regular (Kathy Monsivais) Gastrointestinal/Abdomen GI Exam: Soft, Non-Tender, Distended (Kathy Monsivais) Genitourinary Exam: Flank Non-Tender (Kathy Monsivais) Integumentary Skin Exam: Clear, Warm, Dry (Kathy Monsivais) Extremeties Extremities Exam: No Edema (Kathy Monsivais) Neurologic Neuro Exam: Alert, Awake, Oriented (Kathy Monsivais) Psychiatric Psych Exam: Appropriate Responses (Kathy Monsivais) Assessment/Plan Discussed Condition With: Patient Assessment Summary: OSVALDO/Acute Renal Failure Problem List: (1) OSVALDO (acute kidney injury) ICD Codes: N17.9 - Acute kidney failure, unspecified Status: Acute Plan: CKD stage 3 with creatinine noted in 06/26 at 1.40 trace proteinuria noted. Most likely related to pre renal, need to rule out heptorenal syndrome Acute Kidney injury with FeNa of 0.06% suggesting prerenal however can also be low with ATN in cirrhosis. With past medical history of n/v/d prerenal is likely Renal US: . No acute abnormality is seen in the kidneys. Plan Continue albumin Continue to hold losartan and HCTZ Will continue to monitor UOP and BMP Avoid nephrotoxins when possible Oral Fluids encouraged Creatinine is at baseline. (2) Anemia ICD Codes: D64.9 - Anemia, unspecified Status: Acute Plan: Anemia will monitor (3) Type 2 diabetes mellitus ICD Codes: E11.9 - Type 2 diabetes mellitus without complications Status: Chronic Plan: Maintain BS between 140mg/dl to 180mg/dl (4) HTN (hypertension) ICD Codes: I10 - Essential (primary) hypertension Plan: Continue current medication Blood pressure labile (Kathy Monsivais) Problem List: (1) OSVALDO (acute kidney injury) ICD Codes: N17.9 - Acute kidney failure, unspecified Status: Acute Plan: CKD stage 3 with creatinine noted in 06/26 at 1.40 trace proteinuria noted. Most likely related to pre renal, need to rule out heptorenal syndrome Acute Kidney injury with FeNa of 0.06% suggesting prerenal however can also be low with ATN in cirrhosis. With past medical history of n/v/d prerenal is likely Renal US: . No acute abnormality is seen in the kidneys. Plan Continue albumin Continue to hold losartan and HCTZ Will continue to monitor UOP and BMP Avoid nephrotoxins when possible Oral Fluids encouraged Creatinine is at baseline. Patient seen and examined,agree with above. BP was low, meds. on hold, now better. Creatinine improving, on Aldactone. (2) Anemia ICD Codes: D64.9 - Anemia, unspecified Status: Acute Plan: Anemia will monitor (3) Type 2 diabetes mellitus ICD Codes: E11.9 - Type 2 diabetes mellitus without complications Status: Chronic Plan: Maintain BS between 140mg/dl to 180mg/dl (4) HTN (hypertension) ICD Codes: I10 - Essential (primary) hypertension Plan: Continue current medication Blood pressure labile (Pantera Wilkins MD) Kathy Monsivais Nov 06, 2017 10:00 Pantera Wilkins MD Nov 06, 2017 15:20
--- NOTE | 2017-11-06 11:10 | HHI.GIFU ---
Objective Vitals I&O Vital Signs Date Time Temp Pulse Resp B/P (MAP) Pulse Ox O2 Delivery O2 Flow Rate FiO2 11/06/17 00:00 98.7 92 16 122/66 (84) 98 11/05/17 20:00 98.3 16 16 165/75 (105) 98 11/05/17 16:00 98.0 95 16 136/64 (88) 95 11/05/17 11:16 98.4 87 18 123/65 (84) 98 I/O 11/05/17 11/05/17 11/05/17 11/06/17 11/06/17 11/06/17 06:59 14:59 22:59 06:59 14:59 22:59 Intake Total 600 ml Balance 600 ml Intake Oral 600 ml # Voids 2 # Bowel Movements 0 Laboratory Laboratory Tests Test 11/05/17 19:57 11/06/17 06:21 White Blood Count 4.2 Red Blood Count 2.57 Hemoglobin 8.5 Hematocrit 24.5 Mean Corpuscular Volume 95.7 Mean Corpuscular Hemoglobin 33.1 Mean Corpuscular Hemoglobin Concent 34.5 Red Cell Distribution Width 17.5 Platelet Count 185 Mean Platelet Volume 8.9 Neutrophils (%) (Auto) 84.9 Lymphocytes (%) (Auto) 7.5 Monocytes (%) (Auto) 7.3 Eosinophils (%) (Auto) 0.1 Basophils (%) (Auto) 0.2 Neutrophils # (Auto) 3.6 Lymphocytes # (Auto) 0.3 Monocytes # (Auto) 0.3 Eosinophils # (Auto) 0.0 Basophils # (Auto) 0.0 CBC Comment DIFF FINAL Differential Comment Blood Urea Nitrogen 43 39 Creatinine 1.51 1.25 Random Glucose 201 77 Calcium Level 8.3 8.6 Phosphorus Level 1.9 Sodium Level 136 137 Potassium Level 4.4 4.2 Chloride Level 102 103 Carbon Dioxide Level 24.6 26.3 Anion Gap 9 8 Estimat Glomerular Filtration Rate 34 43 Physical Exam HEENT: Normocephalic; atraumatic CHEST: Even/unlabored CARDIAC: RRR ABDOMEN: Soft, nondistended, mild lower abdominal TTP, bowel sounds active SKIN: Pale INDUCTION MACHINE SETTER: No focal deficits; alert and oriented times three. Assessment and Plan Plan History - Weakness- main complaint on arrival- states so severe she has been having difficulty standing- relates it to all the vomiting she has been having - Nausea and vomiting- states this has been going on for over a month. States she is now unable to keep pills or food down. She reports what sounds to be a regurgitation of food because states the food is getting stuck and she is unable to swallow completely. Denies hematemesis and coffee ground emesis. History of EGD with dilatation for esophageal stricture Last EGD October [address] Caldwell --> Esophageal varices, gastritis. Hiatal hernia. Pathology consistent with chemical gastropathy. Pt with DM- ? of gastroparesis in the past- GES done in 2016 normal. - Ascites- Has had three paracentesis this month, last one October 28 with over 6 L removed, pt denies feeling like her abdomen is swollen at this time although it does appear distended, states not as bad as normal - Cirrhosis secondary to autoimmune hepatitis - Lower abdominal pain- states for multiple months- Last colonoscopy done earlier this month revealed diverticulum in sigmoid colon, otherwise normal. Pt does report constipation for the past couple weeks, was previously managed with Lactulose QID but has been unable to keep this down CT abdomen and pelvis (11/01) Moderate ascites the small shrunken liver stable from previous exam - CKD- GFR currently 23- unable to have Lasix EGD (11/03) --> Esophageal varix 1, food residue suggestive of gastroparesis, abnormal antral mucosa of unclear significance, possible gastritis. Pathology (antrum) Ulcerated gastric antral mucosal biopsies with severe acute suppurative non-specific gastritis negative for intestinal metaplasia and dysplasia, negative for H. Pylori Paracentesis (11/04) --> 5300 cc of clear, yellow fluid removed. Therapeutic only. Diarrhea, possibly secondary to meds, DM (11/05) Pt reports lower abdominal pain this morning, states was feeling better last night. Tolerating clear liquids. Having multiple loose BMs, states 6 a day although chart only has one documented. Pt also complaining of poor appetite with early satiety. Nephrology now following for impaired renal function. 11/06/17 PLAN: Advance diet to soft foods- sodium restriction Spironolactone Protonix Monitor stool count- hesitant to add Bethanechol based on pts reports of diarrhea Monitor and limit hydration Further recommendations based on clinical course Pt has been seen and examined by myself and Dr. Caldwell and this note is written on his behalf Geovanna Milian Nov 06, 2017 11:10
--- NOTE | 2017-11-06 11:54 | HHI.GIFU ---
Subjective Remarks Sitting up in chair Awake, conversational Still has some mild weakness Generalized color is pale Afebrile (Geovanna Milian) Objective Vitals I&O Vital Signs Date Time Temp Pulse Resp B/P (MAP) Pulse Ox O2 Delivery O2 Flow Rate FiO2 11/06/17 00:00 98.7 92 16 122/66 (84) 98 11/05/17 20:00 98.3 16 16 165/75 (105) 98 11/05/17 16:00 98.0 95 16 136/64 (88) 95 I/O 11/05/17 11/05/17 11/05/17 11/06/17 11/06/17 11/06/17 07:00 15:00 23:00 07:00 15:00 23:00 Intake Total 600 ml Balance 600 ml Intake Oral 600 ml # Voids 2 # Bowel Movements 0 Laboratory Laboratory Tests Test 11/05/17 19:57 11/06/17 06:21 White Blood Count 4.2 Red Blood Count 2.57 Hemoglobin 8.5 Hematocrit 24.5 Mean Corpuscular Volume 95.7 Mean Corpuscular Hemoglobin 33.1 Mean Corpuscular Hemoglobin Concent 34.5 Red Cell Distribution Width 17.5 Platelet Count 185 Mean Platelet Volume 8.9 Neutrophils (%) (Auto) 84.9 Lymphocytes (%) (Auto) 7.5 Monocytes (%) (Auto) 7.3 Eosinophils (%) (Auto) 0.1 Basophils (%) (Auto) 0.2 Neutrophils # (Auto) 3.6 Lymphocytes # (Auto) 0.3 Monocytes # (Auto) 0.3 Eosinophils # (Auto) 0.0 Basophils # (Auto) 0.0 CBC Comment DIFF FINAL Differential Comment Blood Urea Nitrogen 43 39 Creatinine 1.51 1.25 Random Glucose 201 77 Calcium Level 8.3 8.6 Phosphorus Level 1.9 Sodium Level 136 137 Potassium Level 4.4 4.2 Chloride Level 102 103 Carbon Dioxide Level 24.6 26.3 Anion Gap 9 8 Estimat Glomerular Filtration Rate 34 43 Imaging Last Impressions Cyst Biopsy Asp-Paracentesis US 11/04/17 0000 Signed Impressions: Service Date/Time: Saturday, November 04, 2017 10:43 - CONCLUSION: Uncomplicated ultrasound guided paracentesis. Yaw Josue MD Chest X-Ray 11/04/17 0000 Signed Impressions: Service Date/Time: Saturday, November 04, 2017 08:35 - CONCLUSION: No acute disease. Jose Waggoner Jr., MD Renal Ultrasound 11/03/17 0000 Signed Impressions: Service Date/Time: Friday, November 03, 2017 17:41 - CONCLUSION: 1. No acute abnormality is seen in the kidneys. 2. 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 This can be seen on the CT examination. 3. Moderate ascites. Yayo Hall MD Abdomen/Pelvis CT 11/01/17 1736 Signed Impressions: Service Date/Time: Wednesday, November 01, 2017 19:35 - CONCLUSION: Moderate ascites the small shrunken liver stable from the previous exam. 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 (Geovanna Milian) Assessment and Plan Plan History - Weakness- main complaint on arrival- states so severe she has been having difficulty standing- relates it to all the vomiting she has been having - Nausea and vomiting- states this has been going on for over a month. States she is now unable to keep pills or food down. She reports what sounds to be a regurgitation of food because states the food is getting stuck and she is unable to swallow completely. Denies hematemesis and coffee ground emesis. History of EGD with dilatation for esophageal stricture Last EGD October [address] Caldwell --> Esophageal varices, gastritis. Hiatal hernia. Pathology consistent with chemical gastropathy. Pt with DM- ? of gastroparesis in the past- GES done in 2017 normal. - Ascites- Has had three paracentesis this month, last one October 28 with over 6 L removed, pt denies feeling like her abdomen is swollen at this time although it does appear distended, states not as bad as normal - Cirrhosis secondary to autoimmune hepatitis - Lower abdominal pain- states for multiple months- Last colonoscopy done earlier this month revealed diverticulum in sigmoid colon, otherwise normal. Pt does report constipation for the past couple weeks, was previously managed with Lactulose QID but has been unable to keep this down CT abdomen and pelvis (11/01) Moderate ascites the small shrunken liver stable from previous exam - CKD- GFR currently 23- unable to have Lasix EGD (11/03) --> Esophageal varix 1, food residue suggestive of gastroparesis, abnormal antral mucosa of unclear significance, possible gastritis. Pathology (antrum) Ulcerated gastric antral mucosal biopsies with severe acute suppurative non-specific gastritis negative for intestinal metaplasia and dysplasia, negative for H. Pylori Paracentesis (11/04) --> 5300 cc of clear, yellow fluid removed. Therapeutic only. Diarrhea, possibly secondary to meds, DM. Labs show C. difficile negative (11/05) Pt reports lower abdominal pain this morning, states was feeling better last night. Tolerating clear liquids. Having multiple loose BMs, states 6 a day although chart only has one documented. Pt also complaining of poor appetite with early satiety. Nephrology now following for impaired renal function. 11/06/17 patient is sitting up in chair denies any nausea or vomiting. Loose large diarrhea stool yesterday but none today. Hemoglobin 8.5 today which is a consistent drop from yesterday 9.8. On admission hemoglobin was noted to be 12.2. This could be related to hydration or GI bleeding patient has history of varices and ulcerated gastric antral. Hemoccult is pending. Anemia with hemoglobins trending down. PLAN: Advance diet to soft foods- sodium restriction Spironolactone Some of her liver workup labs are pending Protonix Monitor intake and output currently diarrhea is resolved today Monitor and limit hydration Further recommendations based on clinical course, Hemoccult is pending. Discussed with attending. Pt has been seen and examined by myself and Dr. Caldwell and this note is written on his behalf (Geovanna Milian) Physician Comments Patient seen and examined Agree with above Continue with current supportive care Monitor labs (Jered Caldwell MD) Geovanna Milian Nov 06, 2017 11:54 Jered Caldwell MD Nov 06, 2017 23:32
[2017-11-06 12:00] VITALS: BP 142/67; PULSE 90; RESP 16; TEMP 99.1; O2SAT 96
--- NOTE | 2017-11-06 12:49 | HHI.PR ---
Subjective Remarks Nursing denies any deterioration since last night. Patient tolerating p.o. intake well. Reports very minimal nausea. Also reports having multiple bowel movements. Denies any melena or bright red blood per rectum. Objective Vital Signs Date Time Temp Pulse Resp B/P (MAP) Pulse Ox O2 Delivery O2 Flow Rate FiO2 11/06/17 12:00 99.1 90 16 142/67 (92) 96 11/06/17 08:00 97.9 89 18 127/65 (85) 97 11/06/17 00:00 98.7 92 16 122/66 (84) 98 11/05/17 20:00 98.3 16 16 165/75 (105) 98 11/05/17 16:00 98.0 95 16 136/64 (88) 95 I/O 11/05/17 11/05/17 11/05/17 11/06/17 11/06/17 11/06/17 07:00 15:00 23:00 07:00 15:00 23:00 Intake Total 600 ml Balance 600 ml Intake Oral 600 ml # Voids 2 # Bowel Movements 0 Result Diagram: 11/05/17195611/06/17 0621 Objective Remarks Sitting up in chair, no acute distress Abdomen has mild discomfort upon palpation, mild ascites, slightly distended, relatively soft A/P Assessment and Plan 67-year-old female with a PMH of HTN, HLD, Autoimmune Hepatitis, Cirrhosis, Recurrent Ascites, Anxiety, Depression, CKD and DM who presented to the ER with complaints of dizziness in addition to nausea and vomiting for approx 2 days. Recent admit 10/28-10/29/17 for ascites requiring paracentesis, s/p 6L removed. Nausea/Vomiting with Dysphagia: - Improved since admission, - suspected gastroparesis as EGD upon this admission w/ residual food and antral gastritis - continue reglan - Antiemetics prn and pain control prn - GI following, s/p EGD showing grade 1 varices, residual food suggestive gastroparesis, abnormal antral mucosa possible gastritis. - tolerating clear liquids, diet advanced to soft per GI Dropping h/h - D/w GI, ordered stool Hemoccult, recheck h/h in AM, may need possible colonoscopy -Stopping Lovenox/heparin, continue with SCDs Recurrent Ascites with Cirrhosis secondary to Autoimmune Hepatitis: s/p paracentesis on 10/16 and 10/28, 6L removed. -last paracentesis yesterday 5300L removed. Has discussed TIPS procedure with her [facility] physician. -continue patient's home meds including lactulose qid, spironolactone, mercaptopurine. No lasix due to OSVALDO and soft BP. Diarrhea, improved -on lactulose, dose decreased to TID. Discussed with patient importance of 2-3 soft BMs daily, will need to increase dose of Lactulose or add Rifaximin if not enough stools. -C diff negative OSVALDO on CKD stage III: Cr 2.13, baseline around 1.4. -Nephrology following, continue IV Albumin -avoid nephrotoxins, continue to hold home HCTZ and losartan Hyperkalemia: K 5.6 upon arrival, likely secondary to dehydration, patient also on spironolactone -repeat BMP shows improvement with K 4.5 -continue to monitor Diabetes Mellitus: chronic, patient with very labile blood glucose on prior admissions -A1c level 8.2 -Hypoglycemic overnight, BS as low as 40. Did not receive nighttime dose of Levemir last night. Holding all long-acting insulin at this time. -monitor Accu-checks and cover with SSI Hypertension: chronic -Clonidine and Norvasc on hold secondary to low BP. HCTZ/losartan on hold for OSVALDO. -monitor BP, adjust antihypertensives as needed Hypothyroidism: chronic -continue patient's Synthroid -TSH 5.680 10/19/17 Temporal Arteritis: chronic -continue patient's home prednisone 10mg daily DVT Prophylaxis: teds/SCDs. Heparin sq Discharge Planning Pending improvement in clinical course once h/h holds stable, GI clearance and Nephrology clearance Sekou Ricardo MD Nov 06, 2017 12:49
[2017-11-06 16:00] VITALS: BP 126/60; PULSE 90; RESP 18; TEMP 98.3; O2SAT 97
[2017-11-06] MEDS: LATANOPROST 0.005% OPHT SOLN 2.5 ML BTL EACH EYE SCH (19:44)
[2017-11-06 20:00] VITALS: BP 121/62; PULSE 96; RESP 18; TEMP 98.5; O2SAT 96
[2017-11-06] MEDS: ONDANSETRON HCL 4 MG/2 ML VIAL IVP PRN (22:00)
[2017-11-07] VITALS: BP 133/67; PULSE 103; RESP 18; TEMP 98.5; O2SAT 95
[2017-11-07] MEDS ORDERED: INSULIN ASPART 1,000 UNITS/10 ML VIAL SQ ONE (03:15)
[2017-11-07] MEDS: PROCHLORPERAZINE INJ 10 MG/2 ML VIAL IV PUSH PRN ×2 (03:35→18:13)
[2017-11-07] MEDS: LEVOTHYROXINE SODIUM 88 MCG TAB PO SCH (05:13)
[2017-11-07 08:00] VITALS: BP 104/61; PULSE 99; RESP 17; TEMP 99; O2SAT 96
[2017-11-07 08:24] LABS: AUTOMATED NEUTROPHIL # 3.1 TH/MM3 (1.8-7.7); BASOPHIL % 0.7 % (0.0-2.0); EOSINOPHIL % 0.7 % (0.0-4.0); HEMATOCRIT 26.4 % (35.0-46.0); HEMOGLOBIN 8.9 GM/DL (11.6-15.3); LYMPH % 17.5 % (9.0-44.0); LYMPHOCYTE # 0.8 TH/MM3 (1.0-4.8); MEAN CELL VOLUME 96.8 FL (80.0-100.0); MEAN CORPUSCULAR HEMOGLOBIN 32.6 PG (27.0-34.0); MEAN CORPUSCULAR HGB CONC 33.6 % (32.0-36.0); MEAN PLATELET VOLUME 8.9 FL (7.0-11.0); MONO % 13.5 % (0.0-8.0); MONOCYTE # 0.6 TH/MM3 (0-0.9); NEUT % 67.6 % (16.0-70.0); PLATELET COUNT 182 TH/MM3 (150-450); RED BLOOD COUNT 2.73 MIL/MM3 (4.00-5.30); RED CELL DISTRIBUTION WIDTH 17.4 % (11.6-17.2); WHITE BLOOD COUNT 4.6 TH/MM3 (4.0-11.0)
--- NOTE | 2017-11-07 08:38 | HHI.PR ---
Subjective Remarks This is a pleasant 67 y/o Female with Hypertension, Hyperlipidemia, Autoimmune hepatitis, Cirrhosis, recurrent ascites, Anxiety disorder Depression, CKD and DM, Recent admit 10/28-10/29/17 for ascites requiring paracentesis, s/p 6L removed. Seen in her bedroom, abdomen is not distended, EGD 11/03 found gastroparesis, Gastritis, negative H pylori, was advance diet by GI specialist on Spironolactone. Patient apparently had been in a liver transplant program in the past but has not followed up Patient will probably require to follow-up with a transplant center she may need TIPS or splenorenal shunt to reduce risk of bleeding from her varices this will be determined by a transplant center Objective Vital Signs Date Time Temp Pulse Resp B/P (MAP) Pulse Ox O2 Delivery O2 Flow Rate FiO2 11/07/17 00:00 98.5 103 18 133/67 (89) 95 11/06/17 20:00 98.5 96 18 121/62 (81) 96 11/06/17 16:00 98.3 90 18 126/60 (82) 97 11/06/17 12:00 99.1 90 16 142/67 (92) 96 I/O 11/06/17 11/06/17 11/06/17 11/07/17 11/07/17 11/07/17 07:00 15:00 23:00 07:00 15:00 23:00 Intake Total 800 ml 240 ml Balance 800 ml 240 ml Intake Oral 800 ml 240 ml # Voids 4 3 # Bowel Movements 2 1 Result Diagram: 11/07/17 0735 11/06/17 0621 Imaging Last Impressions Cyst Biopsy Asp-Paracentesis US 11/04/17 0000 Signed Impressions: Service Date/Time: Saturday, November 04, 2017 10:43 - CONCLUSION: Uncomplicated ultrasound guided paracentesis. Yaw Josue MD Chest X-Ray 11/04/17 0000 Signed Impressions: Service Date/Time: Saturday, November 04, 2017 08:35 - CONCLUSION: No acute disease. Joes Waggoner Jr., MD Renal Ultrasound 11/03/17 0000 Signed Impressions: Service Date/Time: Friday, November 03, 2017 17:41 - CONCLUSION: 1. No acute abnormality is seen in the kidneys. 2. 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 This can be seen on the CT examination. 3. Moderate ascites. Yayo Hall MD Abdomen/Pelvis CT 11/01/17 1736 Signed Impressions: Service Date/Time: Wednesday, November 01, 2017 19:35 - CONCLUSION: Moderate ascites the small shrunken liver stable from the previous exam. Marco Chaudhari MD FACR Procedures Paracentesis. Other Results Laboratory Tests Test 11/01/17 16:00 11/02/17 21:50 11/03/17 11:55 11/04/17 08:37 Lipase 58 U/L Tumor Marker Alpha Fetoprotein 1.6 NG/ML Ammonia 67 MCMOL/L Hemoglobin A1c 8.2 % Blood Urea Nitrogen 61 MG/DL Creatinine 2.06 MG/DL Random Glucose 94 MG/DL Total Protein 6.7 GM/DL Albumin 1.9 GM/DL Calcium Level 8.3 MG/DL Alkaline Phosphatase 270 U/L Aspartate Amino Transf (AST/SGOT) 35 U/L Alanine Aminotransferase (ALT/SGPT) 29 U/L Total Bilirubin 0.5 MG/DL Sodium Level 138 MEQ/L Potassium Level 4.5 MEQ/L Chloride Level 103 MEQ/L Carbon Dioxide Level 26.8 MEQ/L Test 11/04/17 09:00 11/04/17 12:15 11/04/17 13:15 11/05/17 19:57 Urine Color YELLOW Urine Turbidity HAZY Urine pH 5.5 Urine Specific [place] 1.020 Urine Protein TRACE mg/dL Urine Glucose (UA) NEG mg/dL Urine Ketones NEG mg/dL Urine Occult Blood NEG Urine Nitrite NEG Urine Bilirubin NEG Urine Urobilinogen 2.0 MG/DL Urine Leukocyte Esterase SMALL Urine RBC 1 /hpf Urine WBC 3 /hpf Urine Squamous Epithelial Cells 1 /hpf Urine Amorphous Sediment RARE Urine Bacteria FEW /hpf Urine Hyaline Casts 10 /lpf Urine Mucus FEW /lpf Microscopic Urinalysis Comment CULT NOT INDICATED Urine Random Creatinine 145.1 MG/DL Urine Random Sodium 6 MEQ/L Stool C. difficile Toxin (PCR) NEGATIVE Stl C. difficile Toxin Epiderm 027 PRESUMPTIVE NEGATIVE Prothrombin Time 10.9 SEC Prothromb Time International Ratio 1.1 RATIO B-Type Natriuretic Peptide 57 PG/ML Blood Urea Nitrogen 43 MG/DL Creatinine 1.51 MG/DL Random Glucose 201 MG/DL Calcium Level 8.3 MG/DL Phosphorus Level 1.9 MG/DL Sodium Level 136 MEQ/L Potassium Level 4.4 MEQ/L Chloride Level 102 MEQ/L Carbon Dioxide Level 24.6 MEQ/L Anti-Nuclear Antibody Screen NEG Test 11/06/17 06:21 11/07/17 07:35 Blood Urea Nitrogen 39 MG/DL Creatinine 1.25 MG/DL Random Glucose 77 MG/DL Calcium Level 8.6 MG/DL Sodium Level 137 MEQ/L Potassium Level 4.2 MEQ/L Chloride Level 103 MEQ/L Carbon Dioxide Level 26.3 MEQ/L Anion Gap 8 MEQ/L Estimat Glomerular Filtration Rate 43 ML/MIN White Blood Count 4.6 TH/MM3 Red Blood Count 2.73 MIL/MM3 Hemoglobin 8.9 GM/DL Hematocrit 26.4 % Mean Corpuscular Volume 96.8 FL Mean Corpuscular Hemoglobin 32.6 PG Mean Corpuscular Hemoglobin Concent 33.6 % Red Cell Distribution Width 17.4 % Platelet Count 182 TH/MM3 Mean Platelet Volume 8.9 FL Neutrophils (%) (Auto) 67.6 % Lymphocytes (%) (Auto) 17.5 % Monocytes (%) (Auto) 13.5 % Eosinophils (%) (Auto) 0.7 % Basophils (%) (Auto) 0.7 % Neutrophils # (Auto) 3.1 TH/MM3 Lymphocytes # (Auto) 0.8 TH/MM3 Monocytes # (Auto) 0.6 TH/MM3 Eosinophils # (Auto) 0.0 TH/MM3 Basophils # (Auto) 0.0 TH/MM3 CBC Comment DIFF FINAL Differential Comment Objective Remarks GENERAL: Alert and oriented, no acute distress. SKIN: Warm and dry. No rash. HEENT: Normocephalic. Atraumatic. EOMI. Mucous membranes pink and moist. CARDIOVASCULAR: Regular rate and rhythm. S1, S2 noted. No murmur appreciated. RESPIRATORY: Nonlabored. Clear to auscultation bilaterally. GASTROINTESTINAL: Soft, non tender, mild distention. MUSCULOSKELETAL: No obvious deformities. Extremities without clubbing, cyanosis or edema. NEUROLOGICAL: Awake and alert. No obvious cranial nerve deficits. PSYCHIATRIC: Appropriate mood and affect. Medications and IVs Current Medications Medications (Trade) Dose Ordered Sig/Miranda Route Start Time Stop Time Status Last Admin (D50w (Vial) Inj) 50 ml UNSCH PRN IV PUSH 11/01/17 20:30 11/06/17 01:24 (Glucagon Inj) 1 mg UNSCH PRN OTHER 11/01/17 20:30 (NovoLOG SUPPLEMENTAL SCALE) 1 ACHS SLIDING SCALE SQ 11/01/17 21:00 11/06/17 21:54 (Compazine Inj) 10 mg Q4H PRN IV PUSH 11/01/17 20:30 11/07/17 03:35 (NS Flush) 2 ml UNSCH PRN IV FLUSH 11/01/17 20:30 (NS Flush) 2 ml BID IV FLUSH 11/01/17 21:00 11/06/17 19:44 (Zofran Inj) 4 mg Q6H PRN IVP 11/01/17 20:30 11/06/17 22:00 (Roxicodone) 5 mg Q4H PRN PO 11/01/17 20:30 (Sherlyn-Colace) 1 tab BID PO 11/01/17 21:00 Future Hold 11/03/17 21:01 (Milk Of Chantel Liq) 30 ml Q12H PRN PO 11/01/17 20:30 (Senokot) 17.2 mg Q12H PRN PO 11/01/17 20:30 (Dulcolax Supp) 10 mg DAILY PRN RECTAL 11/01/17 20:30 (Norvasc) 2.5 mg DAILY PO 11/02/17 09:00 Future Hold 11/03/17 09:05 (Catapres) 0.1 mg BID PO 11/01/17 21:00 Future Hold 11/03/17 21:01 (Xalatan 0.005% Opth Soln) 1 drop HS EACH EYE 11/01/17 21:00 11/06/17 19:44 (Synthroid) 88 mcg DAILY@0600 PO 11/02/17 06:00 11/07/17 05:13 (Deltasone) 10 mg DAILY PO 11/02/17 09:00 11/06/17 08:38 (Zoloft) 50 mg DAILY PO 11/02/17 09:00 11/06/17 08:39 (Aldactone) 25 mg DAILY PO 11/02/17 09:00 11/06/17 08:51 (Ativan Inj) 0.5 mg Q2H PRN IV PUSH 11/01/17 21:00 11/01/17 21:36 (Antivert) 25 mg Q6HR PRN PO 11/01/17 21:00 (Roxicodone) 10 mg Q4H PRN PO 11/01/17 21:00 11/03/17 21:03 (Levemir Inj) 20 units DAILY SQ 11/02/17 11:45 Future Hold 11/05/17 11:45 (Levemir Inj) 5 units HS SQ 11/03/17 21:00 Future Hold 11/03/17 22:59 (Protonix) 40 mg DAILY PO 11/05/17 09:00 11/06/17 08:39 (Lactulose Liq) 30 ml TID PO 11/04/17 18:00 11/06/17 17:04 A/P Assessment and Plan Nausea/Vomiting with Dysphagia: - Improved since admission, - EGD 11/03 found gastroparesis, Gastritis, negative H pylori, was advance diet by GI specialist on Spironolactone. Patient apparently had been in a liver transplant program in the past but has not followed up Patient will probably require to follow-up with a transplant center she may need TIPS or splenorenal shunt to reduce risk of bleeding from her varices this will be determined by a transplant center continue antiemetics, Recurrent Ascites with Cirrhosis secondary to Autoimmune Hepatitis: s/p paracentesis on 10/16 and 10/28, 6L removed. -last paracentesis yesterday 5300L removed. Has discussed TIPS procedure with her [place] physician. -continue patient's home meds including lactulose qid, spironolactone, mercaptopurine. No lasix due to OSVALDO and soft BP. Diarrhea, improved -on lactulose, dose decreased to TID. Discussed with patient importance of 2-3 soft BMs daily, will need to increase dose of Lactulose or add Rifaximin if not enough stools. -C diff negative OSVALDO on CKD stage III: Cr 2.13, baseline around 1.4. today 1.25 -Nephrology following, continue IV Albumin -avoid nephrotoxins, continue to hold home HCTZ and losartan Hyperkalemia: K 5.6 upon arrival, likely secondary to dehydration, patient also on spironolactone -repeat BMP shows improvement with K 4.5 Diabetes Mellitus: chronic, patient with very labile blood glucose on prior admissions -A1c level 8.2 -continue sliding scale. Hypertension: chronic -Clonidine and Norvasc on hold secondary to low BP. HCTZ/losartan on hold for OSVALDO. -monitor BP, adjust antihypertensives as needed Hypothyroidism: chronic -continue patient's Synthroid -TSH 5.680 10/19/17 Temporal Arteritis: chronic -continue patient's home prednisone 10mg daily DVT Prophylaxis: teds/SCDs. Heparin sq Discharge Planning once cleared by GI and nephrology specialist. Chuck Hancock MD Nov 07, 2017 08:38
[2017-11-07] MEDS: LACTULOSE SYRUP 20 GM/30 ML CUP PO SCH ×3 (09:00→16:53)
[2017-11-07] MEDS: INSULIN ASPART SUPPLEMENTAL SCALE SQ SCH ×4 (09:04→20:26)
[2017-11-07] MEDS: SODIUM CHLORIDE 0.9% FLUSH 10 ML FLUSH IV FLUSH SCH ×2 (09:04→20:18)
[2017-11-07] MEDS: PANTOPRAZOLE SOD 40 MG DELAYED RELEASE TAB PO SCH (09:05)
[2017-11-07] MEDS: predniSONE 10 MG TAB PO SCH (09:05)
[2017-11-07] MEDS: SPIRONOLACTONE 25 MG TAB PO SCH (09:05)
[2017-11-07] MEDS: INSULIN DETEMIR 100 UNITS/ML VIAL SQ SCH (09:06)
[2017-11-07] MEDS: SERTRALINE HCL 50 MG TAB PO SCH (09:06)
--- NOTE | 2017-11-07 09:30 | HHI.NPPN ---
Subjective Renal Failure: Chronic, Acute, Stage III History of Present Illness Patient is a 67-year-old female with a PMH of HTN, Hyperlipidemia, Autoimmune Hepatitis, Cirrhosis, Recurrent Ascites, Anxiety, Depression, CKD stage 3 and DM. Presented to the ER with complaints of dizziness,nausea and vomiting. Recent admission 10/28-10/29/17 for ascites requiring paracentesis, s/p 6L removed. Nephrology is consulted for acute kidney injury with creatinine today of 2.06 abd potassium WNL. On admission K+ 5.6. Creatinine 1.74. Reviewing records patient appears to have CKD stage 3. Creatinine in 06/26 at 1.40. Renal US with no acute abnormality. Patient is s/p paracentesis today for 5300L. Additional Remarks Patient is alert, has loose BM over night and vomited once, started eating some this AM. Review of Systems General Constitutional: Fatigue Respiratory Respiratory Remarks No SOB Cardiovascular Cardiac Remarks No CP Gastrointestinal GI Remarks appetite improving Objective Data Data Vital Signs Date Time Temp Pulse Resp B/P (MAP) Pulse Ox O2 Delivery O2 Flow Rate FiO2 11/07/17 08:00 99.0 99 17 104/61 (75) 96 11/07/17 00:00 98.5 103 18 133/67 (89) 95 11/06/17 20:00 98.5 96 18 121/62 (81) 96 11/06/17 16:00 98.3 90 18 126/60 (82) 97 11/06/17 12:00 99.1 90 16 142/67 (92) 96 -: 11/07/17 0735 11/06/17 0621 Microbiology 11/06/17 Stool Occult Blood (ALICE) - Final, Complete HEMOCCULT NEGATIVE Physical Exam General Appearance: No Acute Distress, Anxious Pulmonary Resp Exam: Breath Sounds Equal, No Distress, Diminished Breath Sounds Cardiology CV Exam: Regular Gastrointestinal/Abdomen GI Exam: Soft, Non-Tender, Distended Genitourinary Exam: Flank Non-Tender Integumentary Skin Exam: Clear, Warm, Dry Extremeties Extremities Exam: No Edema Neurologic Neuro Exam: Alert, Awake, Oriented Psychiatric Psych Exam: Appropriate Responses Assessment/Plan Discussed Condition With: Patient Assessment Summary: OSVALDO/Acute Renal Failure Problem List: (1) OSVALDO (acute kidney injury) ICD Codes: N17.9 - Acute kidney failure, unspecified Status: Acute Plan: CKD stage 3 with creatinine noted in 06/26 at 1.40 trace proteinuria noted. Most likely related to pre renal, need to rule out heptorenal syndrome Acute Kidney injury with FeNa of 0.06% suggesting prerenal however can also be low with ATN in cirrhosis. With past medical history of n/v/d prerenal is likely Renal US: . No acute abnormality is seen in the kidneys. Plan Continue albumin Continue to hold losartan and HCTZ Will continue to monitor UOP and BMP Avoid nephrotoxins when possible Oral Fluids encouraged Creatinine is at baseline. BP is better, no new BMP, will get in AM. (2) Anemia ICD Codes: D64.9 - Anemia, unspecified Status: Acute Plan: Anemia will monitor (3) Type 2 diabetes mellitus ICD Codes: E11.9 - Type 2 diabetes mellitus without complications Status: Chronic Plan: Maintain BS between 140mg/dl to 180mg/dl (4) HTN (hypertension) ICD Codes: I10 - Essential (primary) hypertension Plan: Continue current medication Blood pressure labile Pantera Wilkins MD Nov 07, 2017 09:30
--- NOTE | 2017-11-07 11:32 | HHI.GIFU ---
Subjective Remarks Hemoglobin monitored, 8.5 on 11/06/17, 8.9 on 11/07/17 Resting in the bed Abdomen taut, continues to be distended Highest temp 99.1 for the past 24 hours (Geovanna Milian) Objective Vitals I&O Vital Signs Date Time Temp Pulse Resp B/P (MAP) Pulse Ox O2 Delivery O2 Flow Rate FiO2 11/07/17 08:00 99.0 99 17 104/61 (75) 96 11/07/17 00:00 98.5 103 18 133/67 (89) 95 11/06/17 20:00 98.5 96 18 121/62 (81) 96 11/06/17 16:00 98.3 90 18 126/60 (82) 97 11/06/17 12:00 99.1 90 16 142/67 (92) 96 I/O 11/06/17 11/06/17 11/06/17 11/07/17 11/07/17 11/07/17 07:00 15:00 23:00 07:00 15:00 23:00 Intake Total 800 ml 240 ml Balance 800 ml 240 ml Intake Oral 800 ml 240 ml # Voids 4 3 # Bowel Movements 2 1 Laboratory Laboratory Tests Test 11/07/17 07:35 White Blood Count 4.6 Red Blood Count 2.73 Hemoglobin 8.9 Hematocrit 26.4 Mean Corpuscular Volume 96.8 Mean Corpuscular Hemoglobin 32.6 Mean Corpuscular Hemoglobin Concent 33.6 Red Cell Distribution Width 17.4 Platelet Count 182 Mean Platelet Volume 8.9 Neutrophils (%) (Auto) 67.6 Lymphocytes (%) (Auto) 17.5 Monocytes (%) (Auto) 13.5 Eosinophils (%) (Auto) 0.7 Basophils (%) (Auto) 0.7 Neutrophils # (Auto) 3.1 Lymphocytes # (Auto) 0.8 Monocytes # (Auto) 0.6 Eosinophils # (Auto) 0.0 Basophils # (Auto) 0.0 CBC Comment DIFF FINAL Differential Comment Date/Time Source Procedure Growth Status 11/06/17 15:50 Stool Stool Stool Occult Blood (ALICE) - Final HEMOCCULT NEGATIVE Complete Imaging Last Impressions Cyst Biopsy Asp-Paracentesis US 11/04/17 0000 Signed Impressions: Service Date/Time: Saturday, November 04, 2017 10:43 - CONCLUSION: Uncomplicated ultrasound guided paracentesis. Yaw Josue MD Chest X-Ray 11/04/17 0000 Signed Impressions: Service Date/Time: Saturday, November 04, 2017 08:35 - CONCLUSION: No acute disease. Jose Waggoner Jr., MD Renal Ultrasound 11/03/17 0000 Signed Impressions: Service Date/Time: Friday, November 03, 2017 17:41 - CONCLUSION: 1. No acute abnormality is seen in the kidneys. 2. 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 This can be seen on the CT examination. 3. Moderate ascites. Yayo Hall MD Abdomen/Pelvis CT 11/01/17 1736 Signed Impressions: Service Date/Time: Wednesday, November 01, 2017 19:35 - CONCLUSION: Moderate ascites the small shrunken liver stable from the previous exam. 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 (Geovanna Milian) Assessment and Plan Plan History - Weakness- main complaint on arrival- states so severe she has been having difficulty standing- relates it to all the vomiting she has been having - Nausea and vomiting- states this has been going on for over a month. States she is now unable to keep pills or food down. She reports what sounds to be a regurgitation of food because states the food is getting stuck and she is unable to swallow completely. Denies hematemesis and coffee ground emesis. History of EGD with dilatation for esophageal stricture Last EGD October [address] Caldwell --> Esophageal varices, gastritis. Hiatal hernia. Pathology consistent with chemical gastropathy. Pt with DM- ? of gastroparesis in the past- GES done in 2017 normal. - Ascites- Has had three paracentesis this month, last one October 28 with over 6 L removed, pt denies feeling like her abdomen is swollen at this time although it does appear distended, states not as bad as normal - Cirrhosis secondary to autoimmune hepatitis - Lower abdominal pain- states for multiple months- Last colonoscopy done earlier this month revealed diverticulum in sigmoid colon, otherwise normal. Pt does report constipation for the past couple weeks, was previously managed with Lactulose QID but has been unable to keep this down CT abdomen and pelvis (11/01) Moderate ascites the small shrunken liver stable from previous exam - CKD- GFR currently 23- unable to have Lasix EGD (11/03) --> Esophageal varix 1, food residue suggestive of gastroparesis, abnormal antral mucosa of unclear significance, possible gastritis. Pathology (antrum) Ulcerated gastric antral mucosal biopsies with severe acute suppurative non-specific gastritis negative for intestinal metaplasia and dysplasia, negative for H. Pylori Paracentesis (11/04) --> 5300 cc of clear, yellow fluid removed. Therapeutic only. Diarrhea, possibly secondary to meds, DM. Labs show C. difficile negative (11/05) Pt reports lower abdominal pain this morning, states was feeling better last night. Tolerating clear liquids. Having multiple loose BMs, states 6 a day although chart only has one documented. Pt also complaining of poor appetite with early satiety. Nephrology now following for impaired renal function. 11/06/17 patient is sitting up in chair denies any nausea or vomiting. Loose large diarrhea stool yesterday but none today. Hemoglobin 8.5 today which is a consistent drop from yesterday 9.8. On admission hemoglobin was noted to be 12.2. This could be related to hydration or GI bleeding patient has history of varices and ulcerated gastric antral. Hemoccult is pending. Anemia with hemoglobins trending down. 11/07/17 hemoglobin 8.9 today no obvious bleeding. Was noted to be trending down during this hospital admission. Last paracentesis done on the , patient continues to feel bloating. Appears with chronic fatigue, tired. Encourage 4-6 feedings a day maintain appetite, monitoring liver workup labs. Due to hemoglobin trending down checked Hemoccult. Currently negative. Will continue to monitor PLAN: Advance diet to soft foods- sodium restriction Spironolactone Protonix Monitor intake and output Monitor and limit hydration Further recommendations based on clinical course Supportive care Monitor hemoglobin and labs Pt has been seen and examined by myself and Dr. Caldwell and this note is written on his behalf (Geovanna Milian) Physician Comments Patient seen and examined Agree with above Continue with current supportive care Monitor labs Patient apparently had been in a liver transplant program in the past but has not followed up Patient will probably require to follow-up with a transplant center she may need TIPS or splenorenal shunt to reduce risk of bleeding from her varices this will be determined by a transplant center (Jered Caldwell MD) Geovanna Milian Nov 07, 2017 11:32 Jered Caldwell MD Nov 07, 2017 16:03
[2017-11-07 12:00] VITALS: BP 116/63; PULSE 92; RESP 20; TEMP 98.2; O2SAT 96
[2017-11-07 16:00] VITALS: BP 117/67; PULSE 93; RESP 16; TEMP 98.1; O2SAT 96
[2017-11-07] MEDS: ONDANSETRON HCL 4 MG/2 ML VIAL IVP PRN (16:21)
[2017-11-07 20:00] VITALS: BP 98/56; PULSE 96; RESP 18; TEMP 98; O2SAT 97
[2017-11-07] MEDS: LATANOPROST 0.005% OPHT SOLN 2.5 ML BTL EACH EYE SCH (20:17)
[2017-11-08] VITALS: BP 106/58; PULSE 85; RESP 18; TEMP 98; O2SAT 96
[2017-11-08 05:44] LABS: BICARBONATE 25.2 MEQ/L (21.0-32.0); CALCIUM 8.5 MG/DL (8.5-10.1); CREATININE 2.39 MG/DL (0.50-1.00)
[2017-11-08] MEDS: LEVOTHYROXINE SODIUM 88 MCG TAB PO SCH (05:46)
[2017-11-08 08:00] VITALS: BP 103/57; PULSE 92; RESP 19; TEMP 97.9; O2SAT 96
[2017-11-08] MEDS: SERTRALINE HCL 50 MG TAB PO SCH (08:37)
[2017-11-08] MEDS: SPIRONOLACTONE 25 MG TAB PO SCH (08:37)
[2017-11-08] MEDS: PANTOPRAZOLE SOD 40 MG DELAYED RELEASE TAB PO SCH (08:37)
[2017-11-08] MEDS: predniSONE 10 MG TAB PO SCH (08:37)
[2017-11-08] MEDS: LACTULOSE SYRUP 20 GM/30 ML CUP PO SCH ×3 (08:37→17:13)
[2017-11-08] MEDS: SODIUM CHLORIDE 0.9% FLUSH 10 ML FLUSH IV FLUSH SCH ×2 (08:38→21:00)
[2017-11-08] MEDS: INSULIN DETEMIR 100 UNITS/ML VIAL SQ SCH (08:38)
[2017-11-08] MEDS: INSULIN ASPART SUPPLEMENTAL SCALE SQ SCH ×4 (08:38→23:16)
[2017-11-08 12:00] VITALS: BP 127/70; PULSE 89; RESP 16; TEMP 97.9; O2SAT 96
--- NOTE | 2017-11-08 12:01 | HHI.GIFU ---
Subjective Remarks Pt resting in bed. Says she feels sleepybut less so than yesterday. Tolerating diet. (Amelia Greene) Objective Vitals I&O Vital Signs Date Time Temp Pulse Resp B/P (MAP) Pulse Ox O2 Delivery O2 Flow Rate FiO2 11/08/17 08:00 97.9 92 19 103/57 (72) 96 11/08/17 00:00 98.0 85 18 106/58 (74) 96 11/07/17 20:00 98.0 96 18 98/56 (70) 97 11/07/17 16:00 98.1 93 16 117/67 (84) 96 11/07/17 12:00 98.2 92 20 116/63 (80) 96 I/O 11/07/17 11/07/17 11/07/17 11/08/17 11/08/17 11/08/17 07:00 15:00 23:00 07:00 15:00 23:00 Intake Total 240 ml 390 ml 120 ml Balance 240 ml 390 ml 120 ml Intake Oral 240 ml 390 ml 120 ml # Voids 3 1 1 3 # Bowel Movements 1 1 0 0 Laboratory Laboratory Tests Test 11/08/17 03:36 Blood Urea Nitrogen 47 Creatinine 2.39 Random Glucose 78 Calcium Level 8.5 Sodium Level 134 Potassium Level 4.8 Chloride Level 101 Carbon Dioxide Level 25.2 Anion Gap 8 Estimat Glomerular Filtration Rate 20 Date/Time Source Procedure Growth Status 11/06/17 15:50 Stool Stool Stool Occult Blood (ALICE) - Final HEMOCCULT NEGATIVE Complete Imaging Last Impressions Cyst Biopsy Asp-Paracentesis US 11/04/17 0000 Signed Impressions: Service Date/Time: Saturday, November 04, 2017 10:43 - CONCLUSION: Uncomplicated ultrasound guided paracentesis. Yaw Josue MD Chest X-Ray 11/04/17 0000 Signed Impressions: Service Date/Time: Saturday, November 04, 2017 08:35 - CONCLUSION: No acute disease. Jose Waggoner Jr., MD Renal Ultrasound 11/03/17 0000 Signed Impressions: Service Date/Time: Friday, November 03, 2017 17:41 - CONCLUSION: 1. No acute abnormality is seen in the kidneys. 2. 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 This can be seen on the CT examination. 3. Moderate ascites. Yayo Hall MD Abdomen/Pelvis CT 11/01/17 1736 Signed Impressions: Service Date/Time: Wednesday, November 01, 2017 19:35 - CONCLUSION: Moderate ascites the small shrunken liver stable from the previous exam. Marco Chaudhari MD FACR Physical Exam HEENT: Normocephalic; atraumatic CHEST: CTA CARDIAC: Regular rate and rhythm ABDOMEN: Soft, mild distention, mild lower abd TTP, bowel sounds active SKIN: Pale FORENSIC DNA ANALYST: No focal deficits; alert and oriented times three. (Amelia Greene TILE PROFESSIONAL) Assessment and Plan Plan History - Weakness- main complaint on arrival- states so severe she has been having difficulty standing- relates it to all the vomiting she has been having - Nausea and vomiting- states this has been going on for over a month. States she is now unable to keep pills or food down. She reports what sounds to be a regurgitation of food because states the food is getting stuck and she is unable to swallow completely. Denies hematemesis and coffee ground emesis. History of EGD with dilatation for esophageal stricture Last EGD October [address] Caldwell --> Esophageal varices, gastritis. Hiatal hernia. Pathology consistent with chemical gastropathy. Pt with DM- ? of gastroparesis in the past- GES done in 2016 normal. - Ascites- Has had three paracentesis this month, last one October 28 with over 6 L removed, pt denies feeling like her abdomen is swollen at this time although it does appear distended, states not as bad as normal - Cirrhosis secondary to autoimmune hepatitis - Lower abdominal pain- states for multiple months- Last colonoscopy done earlier this month revealed diverticulum in sigmoid colon, otherwise normal. Pt does report constipation for the past couple weeks, was previously managed with Lactulose QID but has been unable to keep this down CT abdomen and pelvis (11/01) Moderate ascites the small shrunken liver stable from previous exam - CKD- GFR currently 23- unable to have Lasix EGD (11/03) --> Esophageal varix 1, food residue suggestive of gastroparesis, abnormal antral mucosa of unclear significance, possible gastritis. Pathology (antrum) Ulcerated gastric antral mucosal biopsies with severe acute suppurative non-specific gastritis negative for intestinal metaplasia and dysplasia, negative for H. Pylori Paracentesis (11/04) --> 5300 cc of clear, yellow fluid removed. Therapeutic only. Diarrhea, possibly secondary to meds, DM. Labs show C. difficile negative (11/05) Pt reports lower abdominal pain this morning, states was feeling better last night. Tolerating clear liquids. Having multiple loose BMs, states 6 a day although chart only has one documented. Pt also complaining of poor appetite with early satiety. Nephrology now following for impaired renal function. 11/06/17 patient is sitting up in chair denies any nausea or vomiting. Loose large diarrhea stool yesterday but none today. Hemoglobin 8.5 today which is a consistent drop from yesterday 9.8. On admission hemoglobin was noted to be 12.2. This could be related to hydration or GI bleeding patient has history of varices and ulcerated gastric antral. Hemoccult is pending. Anemia with hemoglobins trending down. 11/07/17 hemoglobin 8.9 today no obvious bleeding. Was noted to be trending down during this hospital admission. Last paracentesis done on the , patient continues to feel bloating. Appears with chronic fatigue, tired. Encourage 4-6 feedings a day maintain appetite, monitoring liver workup labs. Due to hemoglobin trending down checked Hemoccult. Currently negative. Will continue to monitor 11/08/17 tolerating diet. feels more alert today. creatinine up today. PLAN: low sodium diet Spironolactone Protonix monitor labs Supportive care f/u with [facility] Pt has been seen and examined by myself and Dr. Caldwell and this note is written on his behalf (Amelia Greene) Physician Comments Patient seen and examined Agree with above Continue with current supportive care Monitor labs (Jered Caldwell MD) Amelia Greene Nov 08, 2017 12:01 Jered Caldwell MD Nov 08, 2017 18:52
--- NOTE | 2017-11-08 12:47 | HHI.NPPN ---
Subjective Renal Failure: Chronic, Acute, Stage III History of Present Illness Patient is a 67-year-old female with a PMH of HTN, Hyperlipidemia, Autoimmune Hepatitis, Cirrhosis, Recurrent Ascites, Anxiety, Depression, CKD stage 3 and DM. Presented to the ER with complaints of dizziness,nausea and vomiting. Recent admission 10/28-10/29/17 for ascites requiring paracentesis, s/p 6L removed. Nephrology is consulted for acute kidney injury with creatinine today of 2.06 abd potassium WNL. On admission K+ 5.6. Creatinine 1.74. Reviewing records patient appears to have CKD stage 3. Creatinine in 06/26 at 1.40. Renal US with no acute abnormality. Patient is s/p paracentesis today for 5300L. Additional Remarks Patient is alert, feeling better, not in distress. Review of Systems General Constitutional: Fatigue Respiratory Respiratory Remarks No SOB Cardiovascular Cardiac Remarks No CP Gastrointestinal GI Remarks appetite improving Objective Data Data Vital Signs Date Time Temp Pulse Resp B/P (MAP) Pulse Ox O2 Delivery O2 Flow Rate FiO2 11/08/17 08:00 97.9 92 19 103/57 (72) 96 11/08/17 00:00 98.0 85 18 106/58 (74) 96 11/07/17 20:00 98.0 96 18 98/56 (70) 97 11/07/17 16:00 98.1 93 16 117/67 (84) 96 -: 11/07/17 0735 11/08/17 0336 Physical Exam General Appearance: No Acute Distress, Anxious Pulmonary Resp Exam: Breath Sounds Equal, No Distress, Diminished Breath Sounds Cardiology CV Exam: Regular Gastrointestinal/Abdomen GI Exam: Soft, Non-Tender, Distended Genitourinary Exam: Flank Non-Tender Integumentary Skin Exam: Clear, Warm, Dry Extremeties Extremities Exam: No Edema Neurologic Neuro Exam: Alert, Awake, Oriented Psychiatric Psych Exam: Appropriate Responses Assessment/Plan Discussed Condition With: Patient Assessment Summary: OSVALDO/Acute Renal Failure Problem List: (1) OSVALDO (acute kidney injury) ICD Codes: N17.9 - Acute kidney failure, unspecified Status: Acute Plan: CKD stage 3 with creatinine noted in 06/26 at 1.40 trace proteinuria noted. Most likely related to pre renal, need to rule out heptorenal syndrome Acute Kidney injury with FeNa of 0.06% suggesting prerenal however can also be low with ATN in cirrhosis. With past medical history of n/v/d prerenal is likely Renal US: . No acute abnormality is seen in the kidneys. Plan Continue albumin Continue to hold losartan and HCTZ Will continue to monitor UOP and BMP Avoid nephrotoxins when possible Oral Fluids encouraged Creatinine is now increased to 2.3, possibly pre renal due to vomiting and diarrhea. I will give gentle hydration. Follow up BMP in AM. (2) Anemia ICD Codes: D64.9 - Anemia, unspecified Status: Acute Plan: Anemia will monitor (3) Type 2 diabetes mellitus ICD Codes: E11.9 - Type 2 diabetes mellitus without complications Status: Chronic Plan: Maintain BS between 140mg/dl to 180mg/dl (4) HTN (hypertension) ICD Codes: I10 - Essential (primary) hypertension Plan: Continue current medication Blood pressure labile Pantera Wilkins MD Nov 08, 2017 12:47
[2017-11-08] MEDS: SODIUM CHLOR 0.9% 1000 ML INJ 1,000 ML IV SCH ×2 (12:52→23:17)
[2017-11-08 16:00] VITALS: BP 127/66; PULSE 91; RESP 17; TEMP 97.9; O2SAT 95
--- NOTE | 2017-11-08 16:03 | HHI.PR ---
Subjective Remarks This is a pleasant 67 y/o Female with Hypertension, Hyperlipidemia, Autoimmune hepatitis, Cirrhosis, recurrent ascites, Anxiety disorder Depression, CKD and DM, Recent admit 10/28-10/29/17 for ascites requiring paracentesis, s/p 6L removed. Seen in her bedroom, abdomen is not distended, EGD 11/03 found gastroparesis, Gastritis, negative H pylori, was advance diet by GI specialist on Spironolactone. Patient apparently had been in a liver transplant program in the past but has not followed up Patient will probably require to follow-up with a transplant center she may need TIPS or splenorenal shunt to reduce risk of bleeding from her varices this will be determined by a transplant center 11/08: Seen in her bedroom, stable but worsening renal function Nephrology specialist following, recommended to continue Albumin, on hold Losartan HCTZ, Avoid nephrotoxins, probable prerenal. Objective Vital Signs Date Time Temp Pulse Resp B/P (MAP) Pulse Ox O2 Delivery O2 Flow Rate FiO2 11/08/17 12:00 97.9 89 16 127/70 (89) 96 11/08/17 08:00 97.9 92 19 103/57 (72) 96 11/08/17 00:00 98.0 85 18 106/58 (74) 96 11/07/17 20:00 98.0 96 18 98/56 (70) 97 11/07/17 16:00 98.1 93 16 117/67 (84) 96 I/O 11/07/17 11/07/17 11/07/17 11/08/17 11/08/17 11/08/17 07:00 15:00 23:00 07:00 15:00 23:00 Intake Total 240 ml 390 ml 120 ml Balance 240 ml 390 ml 120 ml Intake Oral 240 ml 390 ml 120 ml # Voids 3 1 1 3 # Bowel Movements 1 1 0 0 Result Diagram: 11/07/17 0735 11/08/17 0336 Imaging Last Impressions Cyst Biopsy Asp-Paracentesis US 11/04/17 0000 Signed Impressions: Service Date/Time: Saturday, November 04, 2017 10:43 - CONCLUSION: Uncomplicated ultrasound guided paracentesis. Yaw Josue MD Chest X-Ray 11/04/17 0000 Signed Impressions: Service Date/Time: Saturday, November 04, 2017 08:35 - CONCLUSION: No acute disease. Jose Waggoner Jr., MD Renal Ultrasound 11/03/17 0000 Signed Impressions: Service Date/Time: Friday, November 03, 2017 17:41 - CONCLUSION: 1. No acute abnormality is seen in the kidneys. 2. 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 This can be seen on the CT examination. 3. Moderate ascites. Yayo Hall MD Abdomen/Pelvis CT 11/01/17 1736 Signed Impressions: Service Date/Time: Wednesday, November 01, 2017 19:35 - CONCLUSION: Moderate ascites the small shrunken liver stable from the previous exam. Marco Chaudhari MD FACR Procedures Paracentesis. Other Results Laboratory Tests Test 11/01/17 16:00 11/02/17 21:50 11/03/17 11:55 11/04/17 08:37 Lipase 58 U/L Tumor Marker Alpha Fetoprotein 1.6 NG/ML Ammonia 67 MCMOL/L Hemoglobin A1c 8.2 % Blood Urea Nitrogen 61 MG/DL Creatinine 2.06 MG/DL Random Glucose 94 MG/DL Total Protein 6.7 GM/DL Albumin 1.9 GM/DL Calcium Level 8.3 MG/DL Alkaline Phosphatase 270 U/L Aspartate Amino Transf (AST/SGOT) 35 U/L Alanine Aminotransferase (ALT/SGPT) 29 U/L Total Bilirubin 0.5 MG/DL Sodium Level 138 MEQ/L Potassium Level 4.5 MEQ/L Chloride Level 103 MEQ/L Carbon Dioxide Level 26.8 MEQ/L Test 11/04/17 09:00 11/04/17 12:15 11/04/17 13:15 11/05/17 19:57 Urine Color YELLOW Urine Turbidity HAZY Urine pH 5.5 Urine Specific [place] 1.020 Urine Protein TRACE mg/dL Urine Glucose (UA) NEG mg/dL Urine Ketones NEG mg/dL Urine Occult Blood NEG Urine Nitrite NEG Urine Bilirubin NEG Urine Urobilinogen 2.0 MG/DL Urine Leukocyte Esterase SMALL Urine RBC 1 /hpf Urine WBC 3 /hpf Urine Squamous Epithelial Cells 1 /hpf Urine Amorphous Sediment RARE Urine Bacteria FEW /hpf Urine Hyaline Casts 10 /lpf Urine Mucus FEW /lpf Microscopic Urinalysis Comment CULT NOT INDICATED Urine Random Creatinine 145.1 MG/DL Urine Random Sodium 6 MEQ/L Stool C. difficile Toxin (PCR) NEGATIVE Stl C. difficile Toxin Epiderm 027 PRESUMPTIVE NEGATIVE Prothrombin Time 10.9 SEC Prothromb Time International Ratio 1.1 RATIO B-Type Natriuretic Peptide 57 PG/ML Blood Urea Nitrogen 43 MG/DL Creatinine 1.51 MG/DL Random Glucose 201 MG/DL Calcium Level 8.3 MG/DL Phosphorus Level 1.9 MG/DL Sodium Level 136 MEQ/L Potassium Level 4.4 MEQ/L Chloride Level 102 MEQ/L Carbon Dioxide Level 24.6 MEQ/L Anti-Nuclear Antibody Screen NEG Test 11/07/17 07:35 11/08/17 03:36 White Blood Count 4.6 TH/MM3 Red Blood Count 2.73 MIL/MM3 Hemoglobin 8.9 GM/DL Hematocrit 26.4 % Mean Corpuscular Volume 96.8 FL Mean Corpuscular Hemoglobin 32.6 PG Mean Corpuscular Hemoglobin Concent 33.6 % Red Cell Distribution Width 17.4 % Platelet Count 182 TH/MM3 Mean Platelet Volume 8.9 FL Neutrophils (%) (Auto) 67.6 % Lymphocytes (%) (Auto) 17.5 % Monocytes (%) (Auto) 13.5 % Eosinophils (%) (Auto) 0.7 % Basophils (%) (Auto) 0.7 % Neutrophils # (Auto) 3.1 TH/MM3 Lymphocytes # (Auto) 0.8 TH/MM3 Monocytes # (Auto) 0.6 TH/MM3 Eosinophils # (Auto) 0.0 TH/MM3 Basophils # (Auto) 0.0 TH/MM3 CBC Comment DIFF FINAL Differential Comment Blood Urea Nitrogen 47 MG/DL Creatinine 2.39 MG/DL Random Glucose 78 MG/DL Calcium Level 8.5 MG/DL Sodium Level 134 MEQ/L Potassium Level 4.8 MEQ/L Chloride Level 101 MEQ/L Carbon Dioxide Level 25.2 MEQ/L Anion Gap 8 MEQ/L Estimat Glomerular Filtration Rate 20 ML/MIN Objective Remarks GENERAL: Alert and oriented, no acute distress. SKIN: Warm and dry. No rash. HEENT: Normocephalic. Atraumatic. EOMI. Mucous membranes pink and moist. CARDIOVASCULAR: Regular rate and rhythm. S1, S2 noted. No murmur appreciated. RESPIRATORY: Nonlabored. Clear to auscultation bilaterally. GASTROINTESTINAL: Soft, non tender, mild distention. MUSCULOSKELETAL: No obvious deformities. Extremities without clubbing, cyanosis or edema. NEUROLOGICAL: Awake and alert. No obvious cranial nerve deficits. PSYCHIATRIC: Appropriate mood and affect. Medications and IVs Current Medications Medications (Trade) Dose Ordered Sig/Miranda Route Start Time Stop Time Status Last Admin (D50w (Vial) Inj) 50 ml UNSCH PRN IV PUSH 11/01/17 20:30 11/06/17 01:24 (Glucagon Inj) 1 mg UNSCH PRN OTHER 11/01/17 20:30 (NovoLOG SUPPLEMENTAL SCALE) 1 ACHS SLIDING SCALE SQ 11/01/17 21:00 11/08/17 12:18 (Compazine Inj) 10 mg Q4H PRN IV PUSH 11/01/17 20:30 11/07/17 18:13 (NS Flush) 2 ml UNSCH PRN IV FLUSH 11/01/17 20:30 (NS Flush) 2 ml BID IV FLUSH 11/01/17 21:00 11/08/17 08:38 (Zofran Inj) 4 mg Q6H PRN IVP 11/01/17 20:30 11/07/17 16:21 (Roxicodone) 5 mg Q4H PRN PO 11/01/17 20:30 (Sherlyn-Colace) 1 tab BID PO 11/01/17 21:00 Future Hold 11/03/17 21:01 (Milk Of Magnesia Liq) 30 ml Q12H PRN PO 11/01/17 20:30 (Senokot) 17.2 mg Q12H PRN PO 11/01/17 20:30 (Dulcolax Supp) 10 mg DAILY PRN RECTAL 11/01/17 20:30 (Norvasc) 2.5 mg DAILY PO 11/02/17 09:00 Future Hold 11/03/17 09:05 (Catapres) 0.1 mg BID PO 11/01/17 21:00 Future Hold 11/03/17 21:01 (Xalatan 0.005% Opth Soln) 1 drop HS EACH EYE 11/01/17 21:00 11/07/17 20:17 (Synthroid) 88 mcg DAILY@0600 PO 11/02/17 06:00 11/08/17 05:46 (Deltasone) 10 mg DAILY PO 11/02/17 09:00 11/08/17 08:37 (Zoloft) 50 mg DAILY PO 11/02/17 09:00 11/08/17 08:37 (Aldactone) 25 mg DAILY PO 11/02/17 09:00 11/08/17 08:37 (Ativan Inj) 0.5 mg Q2H PRN IV PUSH 11/01/17 21:00 11/01/17 21:36 (Antivert) 25 mg Q6HR PRN PO 11/01/17 21:00 (Roxicodone) 10 mg Q4H PRN PO 11/01/17 21:00 11/03/17 21:03 (Levemir Inj) 20 units DAILY SQ 11/02/17 11:45 Future Hold 11/08/17 08:38 (Levemir Inj) 5 units HS SQ 11/03/17 21:00 Future Hold 11/03/17 22:59 (Protonix) 40 mg DAILY PO 11/05/17 09:00 11/08/17 08:37 (Lactulose Liq) 30 ml TID PO 11/04/17 18:00 11/08/17 13:15 Sodium Chloride 1,000 ml @ 84 mls/hr [id number] IV 11/08/17 12:45 11/08/17 12:52 A/P Assessment and Plan Nausea/Vomiting with Dysphagia: - Improved since admission, - EGD 11/03 found gastroparesis, Gastritis, negative H pylori, was advance diet by GI specialist on Spironolactone. Patient apparently had been in a liver transplant program in the past but has not followed up Patient will probably require to follow-up with a transplant center she may need TIPS or splenorenal shunt to reduce risk of bleeding from her varices this will be determined by a transplant center continue antiemetics, low sodium diet. Recurrent Ascites with Cirrhosis secondary to Autoimmune Hepatitis: s/p paracentesis on 10/16 and 10/28, 6L removed. -last paracentesis yesterday 5300L removed. Has discussed TIPS procedure with her [place] physician. -continue patient's home meds including lactulose qid, spironolactone, mercaptopurine. No lasix due to OSVALDO and soft BP. Diarrhea, improved -on lactulose, dose decreased to TID. Discussed with patient importance of 2-3 soft BMs daily, will need to increase dose of Lactulose or add Rifaximin if not enough stools. -C diff negative OSVALDO on CKD stage III: Cr 2.13, baseline around 1.4. today today Creatinine 2.39 worsening nephrology following, started IV fluids. -continue IV Albumin, avoid nephrotoxins, continue to hold home HCTZ and losartan Hyperkalemia: K 5.6 upon arrival, likely secondary to dehydration, patient also on spironolactone -repeat BMP shows improvement with K 4.8 Diabetes Mellitus: chronic, patient with very labile blood glucose on prior admissions -A1c level 8.2 -continue sliding scale. Hypertension: chronic -Clonidine and Norvasc on hold secondary to low BP. HCTZ/losartan on hold for OSVALDO. -monitor BP, adjust antihypertensives as needed Hypothyroidism: chronic -continue patient's Synthroid -TSH 5.680 10/19/17 Temporal Arteritis: chronic -continue patient's home prednisone 10mg daily DVT Prophylaxis: teds/SCDs. Heparin sq Discharge Planning once cleared by GI and nephrology specialist. Chuck Hancock MD Nov 08, 2017 16:03
[2017-11-08] MEDS: PROCHLORPERAZINE INJ 10 MG/2 ML VIAL IV PUSH PRN (19:14)
[2017-11-08 20:00] VITALS: BP 111/61; PULSE 94; RESP 18; TEMP 98; O2SAT 95
[2017-11-08] MEDS: LATANOPROST 0.005% OPHT SOLN 2.5 ML BTL EACH EYE SCH (23:11)
[2017-11-08 23:57] VITALS: BP 123/59; PULSE 90; RESP 18; TEMP 98.1; O2SAT 95
[2017-11-09] MEDS: LEVOTHYROXINE SODIUM 88 MCG TAB PO SCH (05:24)
[2017-11-09 08:00] VITALS: BP 135/61; PULSE 93; RESP 18; TEMP 98.6; O2SAT 95
[2017-11-09] MEDS: INSULIN ASPART SUPPLEMENTAL SCALE SQ SCH ×4 (08:00→20:45)
--- NOTE | 2017-11-09 08:04 | HHI.PR ---
Subjective Remarks This is a pleasant 67 y/o Female with Hypertension, Hyperlipidemia, Autoimmune hepatitis, Cirrhosis, recurrent ascites, Anxiety disorder Depression, CKD and DM, Recent admit 10/28-10/29/17 for ascites requiring paracentesis, s/p 6L removed. Seen in her bedroom, abdomen is not distended, EGD 11/03 found gastroparesis, Gastritis, negative H pylori, was advance diet by GI specialist on Spironolactone. Patient apparently had been in a liver transplant program in the past but has not followed up Patient will probably require to follow-up with a transplant center she may need TIPS or splenorenal shunt to reduce risk of bleeding from her varices this will be determined by a transplant center 11/08: Seen in her bedroom, stable but worsening renal function Nephrology specialist following, recommended to continue Albumin, on hold Losartan HCTZ, Avoid nephrotoxins, probable prerenal. 11/09: Stable in her bedroom, Improving her renal function, not yet cleared for discharge by Nephrology specialist, no nausea, vomit or diarrhea has increased abdominal distention may need another paracentesis. will follow GI specialist recommendations. Objective Vital Signs Date Time Temp Pulse Resp B/P (MAP) Pulse Ox O2 Delivery O2 Flow Rate FiO2 11/08/17 23:57 98.1 90 18 123/59 (80) 95 11/08/17 20:00 98.0 94 18 111/61 (78) 95 11/08/17 16:00 97.9 91 17 127/66 (86) 95 11/08/17 12:00 97.9 89 16 127/70 (89) 96 I/O 11/08/17 11/08/17 11/08/17 11/09/17 11/09/17 11/09/17 07:00 15:00 23:00 07:00 15:00 23:00 Intake Total 120 ml 475 ml 120 ml Balance 120 ml 475 ml 120 ml Intake Oral 120 ml 475 ml 120 ml # Voids 3 2 1 # Bowel Movements 0 0 1 Result Diagram: 11/07/17 0735 11/08/17 0336 Imaging Last Impressions Cyst Biopsy Asp-Paracentesis US 11/04/17 0000 Signed Impressions: Service Date/Time: Saturday, November 04, 2017 10:43 - CONCLUSION: Uncomplicated ultrasound guided paracentesis. Yaw Josue MD Chest X-Ray 11/04/17 0000 Signed Impressions: Service Date/Time: Saturday, November 04, 2017 08:35 - CONCLUSION: No acute disease. Jose Waggoner Jr., MD Renal Ultrasound 11/03/17 0000 Signed Impressions: Service Date/Time: Friday, November 03, 2017 17:41 - CONCLUSION: 1. No acute abnormality is seen in the kidneys. 2. 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 This can be seen on the CT examination. 3. Moderate ascites. Yayo Hall MD Abdomen/Pelvis CT 11/01/17 1736 Signed Impressions: Service Date/Time: Wednesday, November 01, 2017 19:35 - CONCLUSION: Moderate ascites the small shrunken liver stable from the previous exam. Marco Chaudhari MD FACR Procedures Paracentesis. Other Results Laboratory Tests Test 11/01/17 16:00 11/02/17 21:50 11/03/17 11:55 11/04/17 08:37 Lipase 58 U/L Tumor Marker Alpha Fetoprotein 1.6 NG/ML Ammonia 67 MCMOL/L Hemoglobin A1c 8.2 % Blood Urea Nitrogen 61 MG/DL Creatinine 2.06 MG/DL Random Glucose 94 MG/DL Total Protein 6.7 GM/DL Albumin 1.9 GM/DL Calcium Level 8.3 MG/DL Alkaline Phosphatase 270 U/L Aspartate Amino Transf (AST/SGOT) 35 U/L Alanine Aminotransferase (ALT/SGPT) 29 U/L Total Bilirubin 0.5 MG/DL Sodium Level 138 MEQ/L Potassium Level 4.5 MEQ/L Chloride Level 103 MEQ/L Carbon Dioxide Level 26.8 MEQ/L Test 11/04/17 09:00 11/04/17 12:15 11/04/17 13:15 11/05/17 19:57 Urine Color YELLOW Urine Turbidity HAZY Urine pH 5.5 Urine Specific Castell 1.020 Urine Protein TRACE mg/dL Urine Glucose (UA) NEG mg/dL Urine Ketones NEG mg/dL Urine Occult Blood NEG Urine Nitrite NEG Urine Bilirubin NEG Urine Urobilinogen 2.0 MG/DL Urine Leukocyte Esterase SMALL Urine RBC 1 /hpf Urine WBC 3 /hpf Urine Squamous Epithelial Cells 1 /hpf Urine Amorphous Sediment RARE Urine Bacteria FEW /hpf Urine Hyaline Casts 10 /lpf Urine Mucus FEW /lpf Microscopic Urinalysis Comment CULT NOT INDICATED Urine Random Creatinine 145.1 MG/DL Urine Random Sodium 6 MEQ/L Stool C. difficile Toxin (PCR) NEGATIVE Stl C. difficile Toxin Epiderm 027 PRESUMPTIVE NEGATIVE Prothrombin Time 10.9 SEC Prothromb Time International Ratio 1.1 RATIO B-Type Natriuretic Peptide 57 PG/ML Blood Urea Nitrogen 43 MG/DL Creatinine 1.51 MG/DL Random Glucose 201 MG/DL Calcium Level 8.3 MG/DL Phosphorus Level 1.9 MG/DL Sodium Level 136 MEQ/L Potassium Level 4.4 MEQ/L Chloride Level 102 MEQ/L Carbon Dioxide Level 24.6 MEQ/L Anti-Nuclear Antibody Screen NEG Test 11/07/17 07:35 11/08/17 03:36 White Blood Count 4.6 TH/MM3 Red Blood Count 2.73 MIL/MM3 Hemoglobin 8.9 GM/DL Hematocrit 26.4 % Mean Corpuscular Volume 96.8 FL Mean Corpuscular Hemoglobin 32.6 PG Mean Corpuscular Hemoglobin Concent 33.6 % Red Cell Distribution Width 17.4 % Platelet Count 182 TH/MM3 Mean Platelet Volume 8.9 FL Neutrophils (%) (Auto) 67.6 % Lymphocytes (%) (Auto) 17.5 % Monocytes (%) (Auto) 13.5 % Eosinophils (%) (Auto) 0.7 % Basophils (%) (Auto) 0.7 % Neutrophils # (Auto) 3.1 TH/MM3 Lymphocytes # (Auto) 0.8 TH/MM3 Monocytes # (Auto) 0.6 TH/MM3 Eosinophils # (Auto) 0.0 TH/MM3 Basophils # (Auto) 0.0 TH/MM3 CBC Comment DIFF FINAL Differential Comment Blood Urea Nitrogen 47 MG/DL Creatinine 2.39 MG/DL Random Glucose 78 MG/DL Calcium Level 8.5 MG/DL Sodium Level 134 MEQ/L Potassium Level 4.8 MEQ/L Chloride Level 101 MEQ/L Carbon Dioxide Level 25.2 MEQ/L Anion Gap 8 MEQ/L Estimat Glomerular Filtration Rate 20 ML/MIN Objective Remarks GENERAL: Alert and oriented, no acute distress. SKIN: Warm and dry. No rash. HEENT: Normocephalic. Atraumatic. EOMI. Mucous membranes pink and moist. CARDIOVASCULAR: Regular rate and rhythm. S1, S2 noted. No murmur appreciated. RESPIRATORY: Nonlabored. Clear to auscultation bilaterally. GASTROINTESTINAL: Soft, non tender, moderate distention. MUSCULOSKELETAL: No obvious deformities. Extremities without clubbing, cyanosis or edema. NEUROLOGICAL: Awake and alert. No obvious cranial nerve deficits. PSYCHIATRIC: Appropriate mood and affect. Medications and IVs Current Medications Medications (Trade) Dose Ordered Sig/Miranda Route Start Time Stop Time Status Last Admin (D50w (Vial) Inj) 50 ml UNSCH PRN IV PUSH 11/01/17 20:30 11/06/17 01:24 (Glucagon Inj) 1 mg UNSCH PRN OTHER 11/01/17 20:30 (NovoLOG SUPPLEMENTAL SCALE) 1 ACHS SLIDING SCALE SQ 11/01/17 21:00 11/08/17 23:16 (Compazine Inj) 10 mg Q4H PRN IV PUSH 11/01/17 20:30 11/08/17 19:14 (NS Flush) 2 ml UNSCH PRN IV FLUSH 11/01/17 20:30 (NS Flush) 2 ml BID IV FLUSH 11/01/17 21:00 11/08/17 08:38 (Zofran Inj) 4 mg Q6H PRN IVP 11/01/17 20:30 11/07/17 16:21 (Roxicodone) 5 mg Q4H PRN PO 11/01/17 20:30 (Sherlyn-Colace) 1 tab BID PO 11/01/17 21:00 Future Hold 11/03/17 21:01 (Milk Of Magnesia Liq) 30 ml Q12H PRN PO 11/01/17 20:30 (Senokot) 17.2 mg Q12H PRN PO 11/01/17 20:30 (Dulcolax Supp) 10 mg DAILY PRN RECTAL 11/01/17 20:30 (Norvasc) 2.5 mg DAILY PO 11/02/17 09:00 Future Hold 11/03/17 09:05 (Catapres) 0.1 mg BID PO 11/01/17 21:00 Future Hold 11/03/17 21:01 (Xalatan 0.005% Opth Soln) 1 drop HS EACH EYE 11/01/17 21:00 11/08/17 23:11 (Synthroid) 88 mcg DAILY@0600 PO 11/02/17 06:00 11/09/17 05:24 (Deltasone) 10 mg DAILY PO 11/02/17 09:00 11/08/17 08:37 (Zoloft) 50 mg DAILY PO 11/02/17 09:00 11/08/17 08:37 (Aldactone) 25 mg DAILY PO 11/02/17 09:00 11/08/17 08:37 (Ativan Inj) 0.5 mg Q2H PRN IV PUSH 11/01/17 21:00 11/01/17 21:36 (Antivert) 25 mg Q6HR PRN PO 11/01/17 21:00 (Roxicodone) 10 mg Q4H PRN PO 11/01/17 21:00 11/03/17 21:03 (Levemir Inj) 20 units DAILY SQ 11/02/17 11:45 Future Hold 11/08/17 08:38 (Levemir Inj) 5 units HS SQ 11/03/17 21:00 Future Hold 11/03/17 22:59 (Protonix) 40 mg DAILY PO 11/05/17 09:00 11/08/17 08:37 (Lactulose Liq) 30 ml TID PO 11/04/17 18:00 11/08/17 17:13 Sodium Chloride 1,000 ml @ 84 mls/hr [id number] IV 11/08/17 12:45 11/08/17 23:17 A/P Assessment and Plan Nausea/Vomiting with Dysphagia: - Improved since admission, - EGD 11/03 found gastroparesis, Gastritis, negative H pylori, was advance diet by GI specialist on Spironolactone. Patient apparently had been in a liver transplant program in the past but has not followed up Patient will probably require to follow-up with a transplant center she may need TIPS or splenorenal shunt to reduce risk of bleeding from her varices this will be determined by a transplant center continue antiemetics, low sodium diet. has increased Abdominal distention, may need another paracentesis. Recurrent Ascites with Cirrhosis secondary to Autoimmune Hepatitis: s/p paracentesis on 10/16 and 10/28, 6L removed. -last paracentesis yesterday 5300L removed. Has discussed TIPS procedure with her [place] physician. -continue patient's home meds including lactulose qid, spironolactone, mercaptopurine. No lasix due to OSVALDO and soft BP. Diarrhea, improved -on lactulose, dose decreased to TID. Discussed with patient importance of 2-3 soft BMs daily, will need to increase dose of Lactulose or add Rifaximin if not enough stools. -C diff negative OSVALDO on CKD stage III: Cr 2.13, baseline around 1.4. today 2.09 Improving , started IV fluids. -continue IV Albumin, avoid nephrotoxins, continue to hold home HCTZ and losartan Hyperkalemia: K 5.6 upon arrival, likely secondary to dehydration, patient also on spironolactone -repeat BMP shows improvement with K 5 Diabetes Mellitus: chronic, patient with very labile blood glucose on prior admissions -A1c level 8.2 -continue sliding scale. continue Levemir 20 units in am, but continue Uncontrolled will give 5 units at bed time again and follow. Hypertension: chronic -Clonidine and Norvasc on hold secondary to low BP. HCTZ/losartan on hold for OSVALDO. -monitor BP, adjust antihypertensives as needed Hypothyroidism: chronic -continue patient's Synthroid -TSH 5.680 10/19/17 Temporal Arteritis: chronic -continue patient's home prednisone 10mg daily DVT Prophylaxis: teds/SCDs. Heparin sq Discharge Planning once cleared by GI and nephrology specialist. Chuck Hancock MD Nov 09, 2017 08:04
[2017-11-09] MEDS: LACTULOSE SYRUP 20 GM/30 ML CUP PO SCH ×3 (08:20→17:28)
[2017-11-09] MEDS: PANTOPRAZOLE SOD 40 MG DELAYED RELEASE TAB PO SCH (08:20)
[2017-11-09] MEDS: SERTRALINE HCL 50 MG TAB PO SCH (08:20)
[2017-11-09] MEDS: predniSONE 10 MG TAB PO SCH (08:20)
[2017-11-09] MEDS: SODIUM CHLORIDE 0.9% FLUSH 10 ML FLUSH IV FLUSH SCH ×2 (08:20→20:45)
[2017-11-09] MEDS: SPIRONOLACTONE 25 MG TAB PO SCH (08:20)
[2017-11-09] MEDS: INSULIN DETEMIR 100 UNITS/ML VIAL SQ SCH ×2 (08:54→20:46)
--- NOTE | 2017-11-09 09:19 | HHI.NPPN ---
Subjective Renal Failure: Chronic, Acute, Stage III History of Present Illness Patient is a 67-year-old female with a PMH of HTN, Hyperlipidemia, Autoimmune Hepatitis, Cirrhosis, Recurrent Ascites, Anxiety, Depression, CKD stage 3 and DM. Presented to the ER with complaints of dizziness,nausea and vomiting. Recent admission 10/28-10/29/17 for ascites requiring paracentesis, s/p 6L removed. Nephrology is consulted for acute kidney injury with creatinine today of 2.06 abd potassium WNL. On admission K+ 5.6. Creatinine 1.74. Reviewing records patient appears to have CKD stage 3. Creatinine in 06/26 at 1.40. Renal US with no acute abnormality. Patient is s/p paracentesis today for 5300L. Additional Remarks Patient is alert and oriented. Complaining of nausea and abdominal distention. (Kathy Monsivais) Review of Systems General Constitutional: Fatigue (Kathy Monsivais) Respiratory Respiratory Remarks No SOB (Kathy Monsivais) Cardiovascular Cardiac Remarks No CP (Kathy Monsivais) Gastrointestinal Gastrointestinal: Nausea & Vomiting (Kathy Monsivais) Objective Data Data Vital Signs Date Time Temp Pulse Resp B/P (MAP) Pulse Ox O2 Delivery O2 Flow Rate FiO2 11/09/17 08:00 98.6 93 18 135/61 (85) 95 11/08/17 23:57 98.1 90 18 123/59 (80) 95 11/08/17 20:00 98.0 94 18 111/61 (78) 95 11/08/17 16:00 97.9 91 17 127/66 (86) 95 11/08/17 12:00 97.9 89 16 127/70 (89) 96 (Kathy Monsivais) -: 11/07/17 0735 11/08/17 0336 Physical Exam General Appearance: No Acute Distress, Anxious (Kathy Monsivais) Pulmonary Resp Exam: Breath Sounds Equal, No Distress, Diminished Breath Sounds (Kathy Monsivais) Cardiology CV Exam: Regular (Kathy Monsivais) Gastrointestinal/Abdomen GI Exam: Soft, Non-Tender, Distended (Kathy Monsivais) Genitourinary Exam: Flank Non-Tender (Kathy Monsivais) Integumentary Skin Exam: Clear, Warm, Dry (Kathy Monsivais) Extremeties Extremities Exam: No Edema (Kathy Monsivais) Neurologic Neuro Exam: Alert, Awake, Oriented (Kathy Monsivais) Psychiatric Psych Exam: Appropriate Responses (Kathy Monsivais) Assessment/Plan Discussed Condition With: Patient Assessment Summary: OSVALDO/Acute Renal Failure Problem List: (1) OSVALDO (acute kidney injury) ICD Codes: N17.9 - Acute kidney failure, unspecified Status: Acute Plan: CKD stage 3 with creatinine noted in 06/26 at 1.40 trace proteinuria noted. Most likely related to pre renal, need to rule out heptorenal syndrome Acute Kidney injury with FeNa of 0.06% suggesting prerenal however can also be low with ATN in cirrhosis. With past medical history of n/v/d prerenal is likely Renal US: . No acute abnormality is seen in the kidneys. Plan Continue to hold losartan and HCTZ with increase in creatinine Continue gentle hydration. Will continue to monitor UOP and BMP Avoid nephrotoxins when possible BMP is pending this AM (2) Anemia ICD Codes: D64.9 - Anemia, unspecified Status: Acute Plan: Anemia will monitor (3) Type 2 diabetes mellitus ICD Codes: E11.9 - Type 2 diabetes mellitus without complications Status: Chronic Plan: Maintain BS between 140mg/dl to 180mg/dl (4) HTN (hypertension) ICD Codes: I10 - Essential (primary) hypertension Plan: Continue current medication Blood pressure labile (Kathy Monsivais) Problem List: (1) OSVALDO (acute kidney injury) ICD Codes: N17.9 - Acute kidney failure, unspecified Status: Acute Plan: CKD stage 3 with creatinine noted in 06/26 at 1.40 trace proteinuria noted. Most likely related to pre renal, need to rule out heptorenal syndrome Acute Kidney injury with FeNa of 0.06% suggesting prerenal however can also be low with ATN in cirrhosis. With past medical history of n/v/d prerenal is likely Renal US: . No acute abnormality is seen in the kidneys. Plan Continue to hold losartan and HCTZ with increase in creatinine Continue gentle hydration. Will continue to monitor UOP and BMP Avoid nephrotoxins when possible BMP is pending this AM Patient seen and examined, agree with above. Creatinine is slightly better, now 2.0. Encourage oral intake. (2) Anemia ICD Codes: D64.9 - Anemia, unspecified Status: Acute Plan: Anemia will monitor (3) Type 2 diabetes mellitus ICD Codes: E11.9 - Type 2 diabetes mellitus without complications Status: Chronic Plan: Maintain BS between 140mg/dl to 180mg/dl (4) HTN (hypertension) ICD Codes: I10 - Essential (primary) hypertension Plan: Continue current medication Blood pressure labile (Pantera Wilkins MD) Kathy Monsivais Nov 09, 2017 09:19 Pantera Wilkins MD Nov 09, 2017 17:45
[2017-11-09 10:07] LABS: BICARBONATE 23.1 MEQ/L (21.0-32.0); CALCIUM 8.3 MG/DL (8.5-10.1); CREATININE 2.04 MG/DL (0.50-1.00)
[2017-11-09] MEDS ORDERED: INSULIN DETEMIR 100 UNITS/ML VIAL SQ ONE (11:45)
[2017-11-09 12:00] VITALS: BP 144/68; PULSE 88; RESP 18; TEMP 98.3; O2SAT 94
[2017-11-09] MEDS: SODIUM CHLOR 0.9% 1000 ML INJ 1,000 ML IV SCH (12:35)
--- NOTE | 2017-11-09 14:30 | HHI.GIFU ---
Subjective Remarks Pt resting in bed in NAD. c/o of abd discomfort. (Amelia Greene [employer]) Objective Vitals I&O Vital Signs Date Time Temp Pulse Resp B/P (MAP) Pulse Ox O2 Delivery O2 Flow Rate FiO2 11/09/17 12:00 98.3 88 18 144/68 (93) 94 11/09/17 08:00 98.6 93 18 135/61 (85) 95 11/08/17 23:57 98.1 90 18 123/59 (80) 95 11/08/17 20:00 98.0 94 18 111/61 (78) 95 11/08/17 16:00 97.9 91 17 127/66 (86) 95 I/O 11/08/17 11/08/17 11/08/17 11/09/17 11/09/17 11/09/17 07:00 15:00 23:00 07:00 15:00 23:00 Intake Total 120 ml 475 ml 120 ml Balance 120 ml 475 ml 120 ml Intake Oral 120 ml 475 ml 120 ml # Voids 3 2 1 # Bowel Movements 0 0 1 Laboratory Laboratory Tests Test 11/09/17 09:17 Blood Urea Nitrogen 47 Creatinine 2.04 Random Glucose 304 Calcium Level 8.3 Sodium Level 134 Potassium Level 5.0 Chloride Level 103 Carbon Dioxide Level 23.1 Anion Gap 8 Estimat Glomerular Filtration Rate 24 Date/Time Source Procedure Growth Status 11/06/17 15:50 Stool Stool Stool Occult Blood (ALICE) - Final HEMOCCULT NEGATIVE Complete Imaging Last Impressions Cyst Biopsy Asp-Paracentesis US 11/04/17 0000 Signed Impressions: Service Date/Time: Saturday, November 04, 2017 10:43 - CONCLUSION: Uncomplicated ultrasound guided paracentesis. Yaw Josue MD Chest X-Ray 11/04/17 0000 Signed Impressions: Service Date/Time: Saturday, November 04, 2017 08:35 - CONCLUSION: No acute disease. Jose Waggoner Jr., MD Renal Ultrasound 11/03/17 0000 Signed Impressions: Service Date/Time: Friday, November 03, 2017 17:41 - CONCLUSION: 1. No acute abnormality is seen in the kidneys. 2. 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 This can be seen on the CT examination. 3. Moderate ascites. Yayo Hall MD Abdomen/Pelvis CT 11/01/17 1736 Signed Impressions: Service Date/Time: Wednesday, November 01, 2017 19:35 - CONCLUSION: Moderate ascites the small shrunken liver stable from the previous exam. Marco Chaudhari MD FACR Physical Exam HEENT: Normocephalic; atraumatic CHEST: CTA CARDIAC: Regular rate and rhythm ABDOMEN: Soft,distended, mild diffuse TTP, bowel sounds active SKIN: Pale D[employer] EQUIPMENT REPA[employer]ER: No focal deficits; alert and oriented times three. (Amelia Greene [facility]) Assessment and Plan Plan ASSESSMENT History - Weakness- main complaint on arrival- states so severe she has been having difficulty standing- relates it to all the vomiting she has been having - Nausea and vomiting- states this has been going on for over a month. States she is now unable to keep pills or food down. She reports what sounds to be a regurgitation of food because states the food is getting stuck and she is unable to swallow completely. Denies hematemesis and coffee ground emesis. History of EGD with dilatation for esophageal stricture Last EGD October [address] Caldwell --> Esophageal varices, gastritis. Hiatal hernia. Pathology consistent with chemical gastropathy. Pt with DM- ? of gastroparesis in the past- GES done in 2016 normal. - Ascites- Has had three paracentesis this month, last one October 28 with over 6 L removed, pt denies feeling like her abdomen is swollen at this time although it does appear distended, states not as bad as normal - Cirrhosis secondary to autoimmune hepatitis - Lower abdominal pain- states for multiple months- Last colonoscopy done earlier this month revealed diverticulum in sigmoid colon, otherwise normal. Pt does report constipation for the past couple weeks, was previously managed with Lactulose QID but has been unable to keep this down CT abdomen and pelvis (11/01) Moderate ascites the small shrunken liver stable from previous exam - CKD- GFR currently 23- unable to have Lasix EGD (11/03) --> Esophageal varix 1, food residue suggestive of gastroparesis, abnormal antral mucosa of unclear significance, possible gastritis. Pathology (antrum) Ulcerated gastric antral mucosal biopsies with severe acute suppurative non-specific gastritis negative for intestinal metaplasia and dysplasia, negative for H. Pylori Paracentesis (11/04) --> 5300 cc of clear, yellow fluid removed. Therapeutic only. Diarrhea, possibly secondary to meds, DM. Labs show C. difficile negative (11/05) Pt reports lower abdominal pain this morning, states was feeling better last night. Tolerating clear liquids. Having multiple loose BMs, states 6 a day although chart only has one documented. Pt also complaining of poor appetite with early satiety. Nephrology now following for impaired renal function. 11/06/17 patient is sitting up in chair denies any nausea or vomiting. Loose large diarrhea stool yesterday but none today. Hemoglobin 8.5 today which is a consistent drop from yesterday 9.8. On admission hemoglobin was noted to be 12.2. This could be related to hydration or GI bleeding patient has history of varices and ulcerated gastric antral. Hemoccult is pending. Anemia with hemoglobins trending down. 11/07/17 hemoglobin 8.9 today no obvious bleeding. Was noted to be trending down during this hospital admission. Last paracentesis done on the , patient continues to feel bloating. Appears with chronic fatigue, tired. Encourage 4-6 feedings a day maintain appetite, monitoring liver workup labs. Due to hemoglobin trending down checked Hemoccult. Currently negative. Will continue to monitor 11/08/17 tolerating diet. feels more alert today. creatinine up today. 11/09/17 pt with some abd discomfort and distention but is not tense.. creatinine mildly improved today PLAN: could consider paracentesis low sodium diet Spironolactone Protonix monitor labs Supportive care f/u with [place] [facility] Pt has been seen and examined by myself and and this note is written on his behalf (Amelia Greene) Physician Comments Seen and examined with [employer], worsening abdominal distension. Repeat paracentesis ordered. Monitor labs. LFTs normal, on prednisone. (Cuong Etienne MD) Amelia Greene Nov 09, 2017 14:30 Cuong Etienne MD Nov 09, 2017 20:15
[2017-11-09 16:00] VITALS: BP 116/56; PULSE 94; RESP 18; TEMP 98.5; O2SAT 95
[2017-11-09 20:00] VITALS: BP 132/60; PULSE 94; RESP 18; TEMP 97.9; O2SAT 97
[2017-11-09] MEDS: LATANOPROST 0.005% OPHT SOLN 2.5 ML BTL EACH EYE SCH (20:44)
[2017-11-10] VITALS (8 sets, daily range): BP systolic 120–149; BP diastolic 59–83; PULSE 84–103; RESP 16–18; TEMP 97.8–98.9; O2SAT 97–100
[2017-11-10] MEDS: LEVOTHYROXINE SODIUM 88 MCG TAB PO SCH (05:00)
[2017-11-10] MEDS: SODIUM CHLOR 0.9% 1000 ML INJ 1,000 ML IV SCH ×3 (05:01→21:24)
[2017-11-10] MEDS ORDERED: INSULIN ASPART 1,000 UNITS/10 ML VIAL SQ SCH (08:00)
[2017-11-10] MEDS: INSULIN ASPART SUPPLEMENTAL SCALE SQ SCH ×4 (08:00→21:20)
[2017-11-10] MEDS: SERTRALINE HCL 50 MG TAB PO SCH (08:35)
[2017-11-10] MEDS: LACTULOSE SYRUP 20 GM/30 ML CUP PO SCH ×3 (08:35→17:08)
[2017-11-10] MEDS: predniSONE 10 MG TAB PO SCH (08:35)
[2017-11-10] MEDS: SPIRONOLACTONE 25 MG TAB PO SCH (08:35)
[2017-11-10] MEDS: SODIUM CHLORIDE 0.9% FLUSH 10 ML FLUSH IV FLUSH SCH ×2 (08:35→21:00)
[2017-11-10] MEDS: PANTOPRAZOLE SOD 40 MG DELAYED RELEASE TAB PO SCH (08:35)
--- NOTE | 2017-11-10 08:36 | HHI.PR ---
Subjective Remarks This is a pleasant 67 y/o Female with Hypertension, Hyperlipidemia, Autoimmune hepatitis, Cirrhosis, recurrent ascites, Anxiety disorder Depression, CKD and DM, Recent admit 10/28-10/29/17 for ascites requiring paracentesis, s/p 6L removed. Seen in her bedroom, abdomen is not distended, EGD 11/03 found gastroparesis, Gastritis, negative H pylori, was advance diet by GI specialist on Spironolactone. Patient apparently had been in a liver transplant program in the past but has not followed up Patient will probably require to follow-up with a transplant center she may need TIPS or splenorenal shunt to reduce risk of bleeding from her varices this will be determined by a transplant center 11/08: Seen in her bedroom, stable but worsening renal function Nephrology specialist following, recommended to continue Albumin, on hold Losartan HCTZ, Avoid nephrotoxins, probable prerenal. 11/09: Stable in her bedroom, Improving her renal function, not yet cleared for discharge by Nephrology specialist, has increased abdominal distention may need another paracentesis. will follow GI specialist recommendations. 11/10: GI specialist recommended paracentesis awaiting for Interventional Radiology, as per nephrology to continue IV fluids. Objective Vital Signs Date Time Temp Pulse Resp B/P (MAP) Pulse Ox O2 Delivery O2 Flow Rate FiO2 11/10/17 00:00 98.6 97 18 120/66 (84) 97 11/09/17 20:00 97.9 94 18 132/60 (84) 97 11/09/17 16:00 98.5 94 18 116/56 (76) 95 11/09/17 12:00 98.3 88 18 144/68 (93) 94 I/O 11/09/17 11/09/17 11/09/17 11/10/17 11/10/17 11/10/17 07:00 15:00 23:00 07:00 15:00 23:00 Intake Total 120 ml 720 ml Balance 120 ml 720 ml Intake Oral 120 ml 720 ml IV Total 0 ml # Voids 1 4 1 # Bowel Movements 1 1 2 Result Diagram: 11/07/17 0735 11/09/17 0917 Imaging Last Impressions Cyst Biopsy Asp-Paracentesis US 11/04/17 0000 Signed Impressions: Service Date/Time: Saturday, November 04, 2017 10:43 - CONCLUSION: Uncomplicated ultrasound guided paracentesis. Yaw Josue MD Chest X-Ray 11/04/17 0000 Signed Impressions: Service Date/Time: Saturday, November 04, 2017 08:35 - CONCLUSION: No acute disease. Jose Waggoner Jr., MD Renal Ultrasound 11/03/17 0000 Signed Impressions: Service Date/Time: Friday, November 03, 2017 17:41 - CONCLUSION: 1. No acute abnormality is seen in the kidneys. 2. 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 This can be seen on the CT examination. 3. Moderate ascites. Yayo Hall MD Abdomen/Pelvis CT 11/01/17 1736 Signed Impressions: Service Date/Time: Wednesday, November 01, 2017 19:35 - CONCLUSION: Moderate ascites the small shrunken liver stable from the previous exam. Marco Chaudhari MD FACR Procedures Paracentesis. Other Results Laboratory Tests Test 11/01/17 16:00 11/02/17 21:50 11/03/17 11:55 11/04/17 08:37 Lipase 58 U/L Tumor Marker Alpha Fetoprotein 1.6 NG/ML Ammonia 67 MCMOL/L Hemoglobin A1c 8.2 % Blood Urea Nitrogen 61 MG/DL Creatinine 2.06 MG/DL Random Glucose 94 MG/DL Total Protein 6.7 GM/DL Albumin 1.9 GM/DL Calcium Level 8.3 MG/DL Alkaline Phosphatase 270 U/L Aspartate Amino Transf (AST/SGOT) 35 U/L Alanine Aminotransferase (ALT/SGPT) 29 U/L Total Bilirubin 0.5 MG/DL Sodium Level 138 MEQ/L Potassium Level 4.5 MEQ/L Chloride Level 103 MEQ/L Carbon Dioxide Level 26.8 MEQ/L Test 11/04/17 09:00 11/04/17 12:15 11/04/17 13:15 11/05/17 19:57 Urine Color YELLOW Urine Turbidity HAZY Urine pH 5.5 Urine Specific [place] 1.020 Urine Protein TRACE mg/dL Urine Glucose (UA) NEG mg/dL Urine Ketones NEG mg/dL Urine Occult Blood NEG Urine Nitrite NEG Urine Bilirubin NEG Urine Urobilinogen 2.0 MG/DL Urine Leukocyte Esterase SMALL Urine RBC 1 /hpf Urine WBC 3 /hpf Urine Squamous Epithelial Cells 1 /hpf Urine Amorphous Sediment RARE Urine Bacteria FEW /hpf Urine Hyaline Casts 10 /lpf Urine Mucus FEW /lpf Microscopic Urinalysis Comment CULT NOT INDICATED Urine Random Creatinine 145.1 MG/DL Urine Random Sodium 6 MEQ/L Stool C. difficile Toxin (PCR) NEGATIVE Stl C. difficile Toxin Epiderm 027 PRESUMPTIVE NEGATIVE Prothrombin Time 10.9 SEC Prothromb Time International Ratio 1.1 RATIO B-Type Natriuretic Peptide 57 PG/ML Blood Urea Nitrogen 43 MG/DL Creatinine 1.51 MG/DL Random Glucose 201 MG/DL Calcium Level 8.3 MG/DL Phosphorus Level 1.9 MG/DL Sodium Level 136 MEQ/L Potassium Level 4.4 MEQ/L Chloride Level 102 MEQ/L Carbon Dioxide Level 24.6 MEQ/L Anti-Nuclear Antibody Screen NEG Anti-Proteinase 3 (c-ANCA) LESS THAN 1.0 AI Anti-Myeloperoxidase Ab (p-ANCA) 1.1 AI Test 11/07/17 07:35 11/09/17 09:17 White Blood Count 4.6 TH/MM3 Red Blood Count 2.73 MIL/MM3 Hemoglobin 8.9 GM/DL Hematocrit 26.4 % Mean Corpuscular Volume 96.8 FL Mean Corpuscular Hemoglobin 32.6 PG Mean Corpuscular Hemoglobin Concent 33.6 % Red Cell Distribution Width 17.4 % Platelet Count 182 TH/MM3 Mean Platelet Volume 8.9 FL Neutrophils (%) (Auto) 67.6 % Lymphocytes (%) (Auto) 17.5 % Monocytes (%) (Auto) 13.5 % Eosinophils (%) (Auto) 0.7 % Basophils (%) (Auto) 0.7 % Neutrophils # (Auto) 3.1 TH/MM3 Lymphocytes # (Auto) 0.8 TH/MM3 Monocytes # (Auto) 0.6 TH/MM3 Eosinophils # (Auto) 0.0 TH/MM3 Basophils # (Auto) 0.0 TH/MM3 CBC Comment DIFF FINAL Differential Comment Blood Urea Nitrogen 47 MG/DL Creatinine 2.04 MG/DL Random Glucose 304 MG/DL Calcium Level 8.3 MG/DL Sodium Level 134 MEQ/L Potassium Level 5.0 MEQ/L Chloride Level 103 MEQ/L Carbon Dioxide Level 23.1 MEQ/L Anion Gap 8 MEQ/L Estimat Glomerular Filtration Rate 24 ML/MIN Objective Remarks GENERAL: Alert and oriented, no acute distress. SKIN: Warm and dry. No rash. HEENT: Normocephalic. Atraumatic. EOMI. Mucous membranes pink and moist. CARDIOVASCULAR: Regular rate and rhythm. S1, S2 noted. No murmur appreciated. RESPIRATORY: Nonlabored. Clear to auscultation bilaterally. GASTROINTESTINAL: Soft, non tender, moderate distention. MUSCULOSKELETAL: No obvious deformities. Extremities without clubbing, cyanosis or edema. NEUROLOGICAL: Awake and alert. No obvious cranial nerve deficits. PSYCHIATRIC: Appropriate mood and affect. Medications and IVs Current Medications Medications (Trade) Dose Ordered Sig/Miranda Route Start Time Stop Time Status Last Admin (D50w (Vial) Inj) 50 ml UNSCH PRN IV PUSH 11/01/17 20:30 11/06/17 01:24 (Glucagon Inj) 1 mg UNSCH PRN OTHER 11/01/17 20:30 (Compazine Inj) 10 mg Q4H PRN IV PUSH 11/01/17 20:30 11/08/17 19:14 (NS Flush) 2 ml UNSCH PRN IV FLUSH 11/01/17 20:30 (NS Flush) 2 ml BID IV FLUSH 11/01/17 21:00 11/09/17 20:45 (Zofran Inj) 4 mg Q6H PRN IVP 11/01/17 20:30 11/07/17 16:21 (Roxicodone) 5 mg Q4H PRN PO 11/01/17 20:30 (Sherlyn-Colace) 1 tab BID PO 11/01/17 21:00 Future Hold 11/03/17 21:01 (Milk Of Magnesia Liq) 30 ml Q12H PRN PO 11/01/17 20:30 (Senokot) 17.2 mg Q12H PRN PO 11/01/17 20:30 (Dulcolax Supp) 10 mg DAILY PRN RECTAL 11/01/17 20:30 (Norvasc) 2.5 mg DAILY PO 11/02/17 09:00 Future Hold 11/03/17 09:05 (Catapres) 0.1 mg BID PO 11/01/17 21:00 Future Hold 11/03/17 21:01 (Xalatan 0.005% Opth Soln) 1 drop HS EACH EYE 11/01/17 21:00 11/09/17 20:44 (Synthroid) 88 mcg DAILY@0600 PO 11/02/17 06:00 11/10/17 05:00 (Deltasone) 10 mg DAILY PO 11/02/17 09:00 11/09/17 08:20 (Zoloft) 50 mg DAILY PO 11/02/17 09:00 11/09/17 08:20 (Aldactone) 25 mg DAILY PO 11/02/17 09:00 11/09/17 08:20 (Ativan Inj) 0.5 mg Q2H PRN IV PUSH 11/01/17 21:00 11/01/17 21:36 (Antivert) 25 mg Q6HR PRN PO 11/01/17 21:00 (Roxicodone) 10 mg Q4H PRN PO 11/01/17 21:00 11/03/17 21:03 (Levemir Inj) 20 units DAILY SQ 11/02/17 11:45 Future Hold 11/09/17 08:54 (Protonix) 40 mg DAILY PO 11/05/17 09:00 11/09/17 08:20 (Lactulose Liq) 30 ml TID PO 11/04/17 18:00 11/09/17 17:28 Sodium Chloride 1,000 ml @ 84 mls/hr [id number] IV 11/08/17 12:45 11/10/17 05:01 (Levemir Inj) 5 units HS SQ 11/09/17 21:00 11/09/17 20:46 (NovoLOG SUPPLEMENTAL SCALE) 1 ACHS SLIDING SCALE SQ 11/09/17 17:00 11/09/17 20:45 (NovoLOG INJ) 5 units TIDAC SQ 11/10/17 08:00 A/P Assessment and Plan Nausea/Vomiting with Dysphagia: - Improved since admission, - EGD 11/03 found gastroparesis, Gastritis, negative H pylori, was advance diet by GI specialist on Spironolactone. Patient apparently had been in a liver transplant program in the past but has not followed up Patient will probably require to follow-up with a transplant center she may need TIPS or splenorenal shunt to reduce risk of bleeding from her varices this will be determined by a transplant center continue antiemetics, low sodium diet. has increased Abdominal distention, may need another paracentesis. Recurrent Ascites with Cirrhosis secondary to Autoimmune Hepatitis: s/p paracentesis on 10/16 and 10/28, 6L removed. -last paracentesis yesterday 5300L removed. Has discussed TIPS procedure with her [place] physician. -continue patient's home meds including lactulose qid, spironolactone, mercaptopurine. No lasix due to OSVALDO and soft BP. Diarrhea, improved -on lactulose, dose decreased to TID. Discussed with patient importance of 2-3 soft BMs daily, will need to increase dose of Lactulose or add Rifaximin if not enough stools. -C diff negative OSVALDO on CKD stage III: Cr 2.13, baseline around 1.4. today 2.09 Improving , started IV fluids. -continue IV Albumin, avoid nephrotoxins, continue to hold home HCTZ and losartan Hyperkalemia: K 5.6 upon arrival, likely secondary to dehydration, patient also on spironolactone -repeat BMP shows improvement with K 5 Diabetes Mellitus: chronic, patient with very labile blood glucose on prior admissions -A1c level 8.2 -continue sliding scale. continue Levemir 20 units in am, but continue Uncontrolled will give 5 units at bed time again and follow. Hypertension: chronic -Clonidine and Norvasc on hold secondary to low BP. HCTZ/losartan on hold for OSVALDO. -monitor BP, adjust antihypertensives as needed Hypothyroidism: chronic -continue patient's Synthroid -TSH 5.680 10/19/17 Temporal Arteritis: chronic -continue patient's home prednisone 10mg daily DVT Prophylaxis: teds/SCDs. Heparin sq Discharge Planning once cleared by GI and nephrology specialist. Chuck Hancock MD Nov 10, 2017 08:36
--- NOTE | 2017-11-10 08:54 | HHI.NPPN ---
Subjective Renal Failure: Chronic, Acute, Stage III History of Present Illness Patient is a 67-year-old female with a PMH of HTN, Hyperlipidemia, Autoimmune Hepatitis, Cirrhosis, Recurrent Ascites, Anxiety, Depression, CKD stage 3 and DM. Presented to the ER with complaints of dizziness,nausea and vomiting. Recent admission 10/28-10/29/17 for ascites requiring paracentesis, s/p 6L removed. Nephrology is consulted for acute kidney injury with creatinine today of 2.06 abd potassium WNL. On admission K+ 5.6. Creatinine 1.74. Reviewing records patient appears to have CKD stage 3. Creatinine in 06/26 at 1.40. Renal US with no acute abnormality. Patient is s/p paracentesis today for 5300L. Additional Remarks Patient is sitting up eating breakfast. Continues to report mild SOB and N/V last night. (Kathy Monsivais) Review of Systems General Constitutional: Fatigue (Kathy Monsivais) Respiratory Respiratory Remarks No SOB (Kathy Monsivais) Cardiovascular Cardiac Remarks No CP (Kathy Monsivais) Gastrointestinal Gastrointestinal: Nausea & Vomiting (Kathy Monsivais) Objective Data Data Vital Signs Date Time Temp Pulse Resp B/P (MAP) Pulse Ox O2 Delivery O2 Flow Rate FiO2 11/10/17 00:00 98.6 97 18 120/66 (84) 97 11/09/17 20:00 97.9 94 18 132/60 (84) 97 11/09/17 16:00 98.5 94 18 116/56 (76) 95 11/09/17 12:00 98.3 88 18 144/68 (93) 94 (Kathy Monsivais) -: 11/07/17 0735 11/09/17 0917 Physical Exam General Appearance: No Acute Distress, Anxious (Kathy Monsivais) Pulmonary Resp Exam: Breath Sounds Equal, No Distress, Diminished Breath Sounds (Kathy Monsivais) Cardiology CV Exam: Regular (Kathy Monsivais) Gastrointestinal/Abdomen GI Exam: Soft, Non-Tender, Distended (Kathy Monsivais) Genitourinary Exam: Flank Non-Tender (Kathy Monsivais) Integumentary Skin Exam: Clear, Warm, Dry (Kathy Monsivais) Extremeties Extremities Exam: No Edema (Kathy Monsivais) Neurologic Neuro Exam: Alert, Awake, Oriented (Kathy Monsivais) Psychiatric Psych Exam: Appropriate Responses (Kathy Monsivais) Assessment/Plan Discussed Condition With: Patient Assessment Summary: OSVALDO/Acute Renal Failure Problem List: (1) OSVALDO (acute kidney injury) ICD Codes: N17.9 - Acute kidney failure, unspecified Status: Acute Plan: CKD stage 3 with creatinine noted in 06/26 at 1.40 trace proteinuria noted. Most likely related to pre renal, need to rule out heptorenal syndrome Acute Kidney injury with FeNa of 0.06% suggesting prerenal however can also be low with ATN in cirrhosis. With past medical history of n/v/d prerenal is likely Renal US: . No acute abnormality is seen in the kidneys. Plan Continue to hold losartan and HCTZ with increase in creatinine Continue gentle hydration will check renal panel in AM and if improved will discontinue IVF's Will continue to monitor UOP and BMP Avoid nephrotoxins when possible Renal panel in AM (2) Anemia ICD Codes: D64.9 - Anemia, unspecified Status: Acute Plan: Anemia will monitor (3) Type 2 diabetes mellitus ICD Codes: E11.9 - Type 2 diabetes mellitus without complications Status: Chronic Plan: Maintain BS between 140mg/dl to 180mg/dl (4) HTN (hypertension) ICD Codes: I10 - Essential (primary) hypertension Plan: Well controlled (5) Insomnia ICD Codes: G47.00 - Insomnia, unspecified Plan: Ambien PRN (Kathy Monsivais) Problem List: (1) OSVALDO (acute kidney injury) ICD Codes: N17.9 - Acute kidney failure, unspecified Status: Acute Plan: CKD stage 3 with creatinine noted in 06/26 at 1.40 trace proteinuria noted. Most likely related to pre renal, need to rule out heptorenal syndrome Acute Kidney injury with FeNa of 0.06% suggesting prerenal however can also be low with ATN in cirrhosis. With past medical history of n/v/d prerenal is likely Renal US: . No acute abnormality is seen in the kidneys. Plan Continue to hold losartan and HCTZ with increase in creatinine Continue gentle hydration will check renal panel in AM and if improved will discontinue IVF's Will continue to monitor UOP and BMP Avoid nephrotoxins when possible Renal panel in AM. Patient seen and examined, agree with above. No BMP today, Creatinine was 2.0 yesterday. (2) Anemia ICD Codes: D64.9 - Anemia, unspecified Status: Acute Plan: Anemia will monitor (3) Type 2 diabetes mellitus ICD Codes: E11.9 - Type 2 diabetes mellitus without complications Status: Chronic Plan: Maintain BS between 140mg/dl to 180mg/dl (4) HTN (hypertension) ICD Codes: I10 - Essential (primary) hypertension Plan: Well controlled (5) Insomnia ICD Codes: G47.00 - Insomnia, unspecified Plan: Tai THIBODEAUX (Pantera Wilkins MD) Kathy Monsivais Nov 10, 2017 08:54 Pantera Wilkins MD Nov 10, 2017 18:37
[2017-11-10] MEDS ORDERED: ZOLPIDEM TARTRATE 5 MG TAB PO PRN (09:00)
[2017-11-10] MEDS: INSULIN DETEMIR 100 UNITS/ML VIAL SQ SCH ×2 (09:00→21:20)
[2017-11-10] MEDS ORDERED: LIDOCAINE HCL 1% 20 ML VIAL ONE (12:11)
--- NOTE | 2017-11-10 13:25 | HHI.GIFU ---
Subjective Remarks Pt just back from paracentesis. Says her abd feels somewhat better. Wants to go to [facility] after d/c. (Amelia Greene) Objective Vitals I&O Vital Signs Date Time Temp Pulse Resp B/P (MAP) Pulse Ox O2 Delivery O2 Flow Rate FiO2 11/10/17 12:21 98.9 85 16 148/80 (102) 99 11/10/17 12:04 98.5 86 16 142/79 (100) 100 11/10/17 11:16 98.2 86 16 137/83 (101) 99 11/10/17 00:00 98.6 97 18 120/66 (84) 97 11/09/17 20:00 97.9 94 18 132/60 (84) 97 11/09/17 16:00 98.5 94 18 116/56 (76) 95 I/O 11/09/17 11/09/17 11/09/17 11/10/17 11/10/17 11/10/17 07:00 15:00 23:00 07:00 15:00 23:00 Intake Total 120 ml 720 ml Balance 120 ml 720 ml Intake Oral 120 ml 720 ml IV Total 0 ml # Voids 1 4 1 # Bowel Movements 1 1 2 Laboratory Last Impressions Date/Time Source Procedure Growth Status 11/06/17 15:50 Stool Stool Stool Occult Blood (ALICE) - Final HEMOCCULT NEGATIVE Complete Imaging Last Impressions Cyst Biopsy Asp-Paracentesis US 11/04/17 0000 Signed Impressions: Service Date/Time: Saturday, November 04, 2017 10:43 - CONCLUSION: Uncomplicated ultrasound guided paracentesis. Yaw Josue MD Chest X-Ray 11/04/17 0000 Signed Impressions: Service Date/Time: Saturday, November 04, 2017 08:35 - CONCLUSION: No acute disease. Jose Waggoner Jr., MD Renal Ultrasound 11/03/17 0000 Signed Impressions: Service Date/Time: Friday, November 03, 2017 17:41 - CONCLUSION: 1. No acute abnormality is seen in the kidneys. 2. 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 This can be seen on the CT examination. 3. Moderate ascites. Yayo Hall MD Abdomen/Pelvis CT 11/01/17 8292 Signed Impressions: Service Date/Time: Wednesday, November 01, 2017 19:35 - CONCLUSION: Moderate ascites the small shrunken liver stable from the previous exam. Marco Chaudhari MD FACR Physical Exam HEENT: Normocephalic; atraumatic CHEST: CTA CARDIAC: Regular rate and rhythm ABDOMEN: Soft,mildly distended, nontender, bowel sounds active SKIN: Pale ANSWERING SERVICE OPERATOR: No focal deficits; alert and oriented times three. (Amelia Greene [facility]) Assessment and Plan Plan ASSESSMENT History - Weakness- main complaint on arrival- states so severe she has been having difficulty standing- relates it to all the vomiting she has been having - Nausea and vomiting- states this has been going on for over a month. States she is now unable to keep pills or food down. She reports what sounds to be a regurgitation of food because states the food is getting stuck and she is unable to swallow completely. Denies hematemesis and coffee ground emesis. History of EGD with dilatation for esophageal stricture Last EGD October [address] Caldwell --> Esophageal varices, gastritis. Hiatal hernia. Pathology consistent with chemical gastropathy. Pt with DM- ? of gastroparesis in the past- GES done in 2016 normal. - Ascites- Has had three paracentesis this month, last one October 28 with over 6 L removed, pt denies feeling like her abdomen is swollen at this time although it does appear distended, states not as bad as normal - Cirrhosis secondary to autoimmune hepatitis - Lower abdominal pain- states for multiple months- Last colonoscopy done earlier this month revealed diverticulum in sigmoid colon, otherwise normal. Pt does report constipation for the past couple weeks, was previously managed with Lactulose QID but has been unable to keep this down CT abdomen and pelvis (11/01) Moderate ascites the small shrunken liver stable from previous exam - CKD- GFR currently 23- unable to have Lasix EGD (11/03) --> Esophageal varix 1, food residue suggestive of gastroparesis, abnormal antral mucosa of unclear significance, possible gastritis. Pathology (antrum) Ulcerated gastric antral mucosal biopsies with severe acute suppurative non-specific gastritis negative for intestinal metaplasia and dysplasia, negative for H. Pylori Paracentesis (11/04) --> 5300 cc of clear, yellow fluid removed. Therapeutic only. Diarrhea, possibly secondary to meds, DM. Labs show C. difficile negative (11/05) Pt reports lower abdominal pain this morning, states was feeling better last night. Tolerating clear liquids. Having multiple loose BMs, states 6 a day although chart only has one documented. Pt also complaining of poor appetite with early satiety. Nephrology now following for impaired renal function. 11/06/17 patient is sitting up in chair denies any nausea or vomiting. Loose large diarrhea stool yesterday but none today. Hemoglobin 8.5 today which is a consistent drop from yesterday 9.8. On admission hemoglobin was noted to be 12.2. This could be related to hydration or GI bleeding patient has history of varices and ulcerated gastric antral. Hemoccult is pending. Anemia with hemoglobins trending down. 11/07/17 hemoglobin 8.9 today no obvious bleeding. Was noted to be trending down during this hospital admission. Last paracentesis done on the , patient continues to feel bloating. Appears with chronic fatigue, tired. Encourage 4-6 feedings a day maintain appetite, monitoring liver workup labs. Due to hemoglobin trending down checked Hemoccult. Currently negative. Will continue to monitor 11/08/17 tolerating diet. feels more alert today. creatinine up today. 11/09/17 pt with some abd discomfort and distention but is not tense.. creatinine mildly improved today 11/10/17 s/p paracentesis, less distended and uncomfortable today. wants to get d/c to [facility] prior to f/u with [place] PLAN: low sodium diet Spironolactone Protonix monitor labs Supportive care f/u with [facility] [facility] Pt has been seen and examined by myself and and this note is written on his behalf (Amelia Greene) Physician Comments Seen and examined with SHELL MACHINE OPERATOR, s/p paracentesis today. Feels better. Trying to get an appointment with [facility]. Last seen there a few years ago. Requiring frequent paracentesis now. ? TIPS. Can dc home with gi fu. Thank you (Cuong Etienne MD) Amelia Greene Nov 10, 2017 13:25 Cuong Etienne MD Nov 10, 2017 14:57
--- NOTE | 2017-11-10 16:55 | RADRPT ---
EXAM DATE/TIME: 11/10/2017 09:40 [facility] COMPARISON: EXTERNAL COMPARISON: US GUIDED ABD PARACENTESIS, November 04, 2017, 10:43. [place] ABD[place] W/ & W/O, Jul 16, ULTRASOUND ABDOMEN LIMITED, July 12, 2015. INDICATIONS : Ascites. MEDICAL HISTORY : Hypothyroidism. Hypercholesterolemia. Cirrhosis. HTN. GERD. Diabetes. Hepatitis. Ascites. SURGICAL HISTORY : Appendectomy. Hysterectomy. Liver biopsy. Paracentesis. ENCOUNTER: Subsequent ACUITY: 1 week PAIN SCORE: 3/10 LOCATION: Right lower quadrant FLUID: Total volume of 4100 cc of clear, yellow fluid was removed. Fluid was discarded. Paracentesis was therapeutic only. Post procedure scanning reveals no hematoma or other complication. TECHNIQUE: 1. Ultrasound guidance for abdominal paracentesis. 2. Paracentesis. The risks, benefits, and alternatives to ultrasound guided paracentesis were explained to the patient in detail including the risk of bleeding and infection. Written and verbal informed consent was obt ained. With the patient on the ultrasound table, ultrasound imaging was used to select the most appropriate approach for paracentesis. Overlying skin was prepped and draped in the usual sterile fashion and wi th a local anesthetic, a dermatotomy was made with an 11 blade scalpel. A 6 [place] [id number] ca theter was introduced into the peritoneal cavity and fluid was collected. The patient tolerated the procedure well and left the ultrasound suite in stable condition. CONCLUSION: Uncomplicated ultrasound guided paracentesis. Satish Moeller MD on November 10, 2017 at 16:53 Board Certified Radiologist. This report was verified electronically.
[2017-11-10] MEDS: LATANOPROST 0.005% OPHT SOLN 2.5 ML BTL EACH EYE SCH (21:25)
[2017-11-11] VITALS: BP 128/67; PULSE 88; RESP 17; TEMP 98.1; O2SAT 97
[2017-11-11 04:00] VITALS: BP 130/67; PULSE 76; RESP 17; TEMP 97.8; O2SAT 98
[2017-11-11] MEDS: LEVOTHYROXINE SODIUM 88 MCG TAB PO SCH (06:46)
[2017-11-11 08:00] VITALS: BP 122/73; PULSE 91; RESP 18; TEMP 98.3; O2SAT 100
[2017-11-11] MEDS: INSULIN ASPART SUPPLEMENTAL SCALE SQ SCH ×4 (08:00→21:59)
[2017-11-11 09:05] LABS: ALBUMIN 2.6 GM/DL (3.4-5.0); BICARBONATE 22.1 MEQ/L (21.0-32.0); CALCIUM 8.1 MG/DL (8.5-10.1); CREATININE 1.08 MG/DL (0.50-1.00); PHOSPHORUS 1.4 MG/DL (2.5-4.9)
--- NOTE | 2017-11-11 09:48 | HHI.NPPN ---
Subjective Renal Failure: Chronic, Acute, Stage III History of Present Illness Patient is a 67-year-old female with a PMH of HTN, Hyperlipidemia, Autoimmune Hepatitis, Cirrhosis, Recurrent Ascites, Anxiety, Depression, CKD stage 3 and DM. Presented to the ER with complaints of dizziness,nausea and vomiting. Recent admission 10/28-10/29/17 for ascites requiring paracentesis, s/p 6L removed. Nephrology is consulted for acute kidney injury with creatinine today of 2.06 abd potassium WNL. On admission K+ 5.6. Creatinine 1.74. Reviewing records patient appears to have CKD stage 3. Creatinine in 06/26 at 1.40. Renal US with no acute abnormality. Patient is s/p paracentesis today for 5300L. Additional Remarks Patient reports that she is feeling much better. No SOB. Creatinine has improved. (Kathy Monsivais) Review of Systems General Constitutional: Fatigue (Kathy Monsivais) Respiratory Respiratory Remarks No SOB (Kathy Monsivais) Cardiovascular Cardiac Remarks No CP (Kathy Monsivais) Gastrointestinal Gastrointestinal: Nausea & Vomiting (Kathy Monsivais) Objective Data Data Vital Signs Date Time Temp Pulse Resp B/P (MAP) Pulse Ox O2 Delivery O2 Flow Rate FiO2 11/11/17 08:00 98.3 91 18 122/73 (89) 100 11/11/17 04:00 97.8 76 17 130/67 (88) 98 11/11/17 00:00 98.1 88 17 128/67 (87) 97 11/10/17 20:00 97.8 89 17 146/76 (99) 100 11/10/17 16:00 97.9 84 16 133/59 (83) 99 11/10/17 12:21 98.9 85 16 148/80 (102) 99 11/10/17 12:04 98.5 86 16 142/79 (100) 100 11/10/17 12:00 97.8 86 16 125/77 (93) 97 11/10/17 11:16 98.2 86 16 137/83 (101) 99 (Kathy Monsivais) -: 11/07/17 0735 11/11/17 0708 Physical Exam General Appearance: No Acute Distress, Anxious (Kathy Monsivais) Pulmonary Resp Exam: Breath Sounds Equal, No Distress, Diminished Breath Sounds (Kathy Monsivais) Cardiology CV Exam: Regular (Kathy Monsivais) Gastrointestinal/Abdomen GI Exam: Soft, Non-Tender, Distended (Kathy Monsivais) Genitourinary Exam: Flank Non-Tender (Kathy Monsivais) Integumentary Skin Exam: Clear, Warm, Dry (Kathy Monsivais) Extremeties Extremities Exam: No Edema (Kathy Monsivais) Neurologic Neuro Exam: Alert, Awake, Oriented (Kathy Monsivais) Psychiatric Psych Exam: Appropriate Responses (Kathy Monsivais) Assessment/Plan Discussed Condition With: Patient Assessment Summary: OSVALDO/Acute Renal Failure Problem List: (1) OSVALDO (acute kidney injury) ICD Codes: N17.9 - Acute kidney failure, unspecified Status: Acute Plan: CKD stage 3 with creatinine noted in 06/26 at 1.40 trace proteinuria noted. Most likely related to pre renal, need to rule out heptorenal syndrome Acute Kidney injury with FeNa of 0.06% suggesting prerenal however can also be low with ATN in cirrhosis. With past medical history of n/v/d prerenal is likely Renal US: . No acute abnormality is seen in the kidneys. Plan Phosphorus level low will add IV replacement Creatinine at 1.08 IVF discontinued. Will continue to monitor UOP and BMP Avoid nephrotoxins when possible (2) Anemia ICD Codes: D64.9 - Anemia, unspecified Status: Acute Plan: Anemia will monitor (3) Type 2 diabetes mellitus ICD Codes: E11.9 - Type 2 diabetes mellitus without complications Status: Chronic Plan: Maintain BS between 140mg/dl to 180mg/dl (4) HTN (hypertension) ICD Codes: I10 - Essential (primary) hypertension Plan: Well controlled (5) Insomnia ICD Codes: G47.00 - Insomnia, unspecified Plan: Ambien PRN (Kathy Monsivais) Problem List: (1) OSVALDO (acute kidney injury) ICD Codes: N17.9 - Acute kidney failure, unspecified Status: Acute Plan: CKD stage 3 with creatinine noted in 06/26 at 1.40 trace proteinuria noted. Most likely related to pre renal, or third spacing. Acute Kidney injury with FeNa of 0.06% suggesting prerenal however can also be low with ATN in cirrhosis. With past medical history of n/v/d prerenal is likely Renal US: . No acute abnormality is seen in the kidneys. Plan Phosphorus level low will add IV replacement Creatinine at 1.08 IVF discontinued. Will continue to monitor UOP and BMP Avoid nephrotoxins when possible. Patient seen and examined, agree with above. Paracentesis done and 4.1 liters removed. BP is stable, Creatinine is better. (2) Anemia ICD Codes: D64.9 - Anemia, unspecified Status: Acute Plan: Anemia will monitor (3) Type 2 diabetes mellitus ICD Codes: E11.9 - Type 2 diabetes mellitus without complications Status: Chronic Plan: Maintain BS between 140mg/dl to 180mg/dl (4) HTN (hypertension) ICD Codes: I10 - Essential (primary) hypertension Plan: Well controlled (5) Insomnia ICD Codes: G47.00 - Insomnia, unspecified Plan: Tai THIBODEAUX (Pantera Wilkins MD) Kathy Monsivais Nov 11, 2017 09:48 Pantera Wilkins MD Nov 11, 2017 17:58
[2017-11-11] MEDS: predniSONE 10 MG TAB PO SCH (09:57)
[2017-11-11] MEDS: SERTRALINE HCL 50 MG TAB PO SCH (09:57)
[2017-11-11] MEDS: LACTULOSE SYRUP 20 GM/30 ML CUP PO SCH ×3 (09:57→16:59)
[2017-11-11] MEDS: SPIRONOLACTONE 25 MG TAB PO SCH (09:57)
[2017-11-11] MEDS: PANTOPRAZOLE SOD 40 MG DELAYED RELEASE TAB PO SCH (09:57)
[2017-11-11] MEDS ORDERED: SODIUM PHOSPHATE INJ 15 MMOL in SODIUM CHLORIDE 0.9% INJ 150 ML IV ONE (10:00)
[2017-11-11] MEDS ORDERED: OXYC-392 PO (11:38)
[2017-11-11] MEDS ORDERED: PANT40TA3 PO (11:38)
[2017-11-11] MEDS ORDERED: LEVEMIR SQ ×2 (11:38)
[2017-11-11] MEDS ORDERED: AMLO5 PO (11:38)
[2017-11-11 12:00] VITALS: BP 148/80; PULSE 101; RESP 18; TEMP 98.5; O2SAT 99
[2017-11-11] MEDS: INSULIN DETEMIR 100 UNITS/ML VIAL SQ SCH ×2 (12:20→21:56)
[2017-11-11] MEDS: SODIUM CHLORIDE 0.9% FLUSH 10 ML FLUSH IV FLUSH SCH ×2 (12:24→21:55)
[2017-11-11 16:00] VITALS: BP 121/68; PULSE 98; RESP 18; TEMP 98.3; O2SAT 97
--- NOTE | 2017-11-11 17:11 | HHI.PR ---
Subjective Remarks This is a pleasant 67 y/o Female with Hypertension, Hyperlipidemia, Autoimmune hepatitis, Cirrhosis, recurrent ascites, Anxiety disorder Depression, CKD and DM, Recent admit 10/28-10/29/17 for ascites requiring paracentesis, s/p 6L removed. Seen in her bedroom, abdomen is not distended, EGD 11/03 found gastroparesis, Gastritis, negative H pylori, was advance diet by GI specialist on Spironolactone. Patient apparently had been in a liver transplant program in the past but has not followed up Patient will probably require to follow-up with a transplant center she may need TIPS or splenorenal shunt to reduce risk of bleeding from her varices this will be determined by a transplant center 11/08: Seen in her bedroom, stable but worsening renal function Nephrology specialist following, recommended to continue Albumin, on hold Losartan HCTZ, Avoid nephrotoxins, probable prerenal. 11/09: Stable in her bedroom, Improving her renal function, not yet cleared for discharge by Nephrology specialist, has increased abdominal distention may need another paracentesis. will follow GI specialist recommendations. 11/10: GI specialist recommended paracentesis awaiting for Interventional Radiology, as per nephrology to continue IV fluids. 11/11: Seen in her bedroom, stable as per GI specialist okay for discharge to SNF , as per Nephrology specialist if improving her renal function okay for discharge, her renal function improved but her Phosphorus level in 1.4 giving Phosphorus replacement, will continue monitoring as per Nephrology but not yet cleared for discharge. Objective Vital Signs Date Time Temp Pulse Resp B/P (MAP) Pulse Ox O2 Delivery O2 Flow Rate FiO2 11/11/17 12:00 98.5 101 18 148/80 (102) 99 11/11/17 08:00 98.3 91 18 122/73 (89) 100 11/11/17 04:00 97.8 76 17 130/67 (88) 98 11/11/17 00:00 98.1 88 17 128/67 (87) 97 11/10/17 20:00 97.8 89 17 146/76 (99) 100 I/O 11/10/17 11/10/17 11/10/17 11/11/17 11/11/17 11/11/17 07:00 15:00 23:00 07:00 15:00 23:00 Intake Total 480 ml 240 ml Balance 480 ml 240 ml Intake Oral 480 ml 240 ml # Voids 1 4 3 # Bowel Movements 2 1 Result Diagram: 11/07/17 0735 11/11/17 0708 Imaging Last Impressions Cyst Biopsy Asp-Paracentesis US 11/10/17 0000 Signed Impressions: Service Date/Time: Friday, November 10, 2017 09:40 - CONCLUSION: Uncomplicated ultrasound guided paracentesis. Satish Moeller MD Chest X-Ray 11/04/17 0000 Signed Impressions: Service Date/Time: Saturday, November 04, 2017 08:35 - CONCLUSION: No acute disease. Jose Waggoner Jr., MD Renal Ultrasound 11/03/17 0000 Signed Impressions: Service Date/Time: Friday, November 03, 2017 17:41 - CONCLUSION: 1. No acute abnormality is seen in the kidneys. 2. 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 This can be seen on the CT examination. 3. Moderate ascites. Yayo Hall MD Abdomen/Pelvis CT 11/01/17 1736 Signed Impressions: Service Date/Time: Wednesday, November 01, 2017 19:35 - CONCLUSION: Moderate ascites the small shrunken liver stable from the previous exam. Marco Chaudhari MD FACR Procedures Paracentesis x 2. Other Results Laboratory Tests Test 11/01/17 16:00 11/02/17 21:50 11/03/17 11:55 11/04/17 08:37 Lipase 58 U/L Tumor Marker Alpha Fetoprotein 1.6 NG/ML Ammonia 67 MCMOL/L Hemoglobin A1c 8.2 % Blood Urea Nitrogen 61 MG/DL Creatinine 2.06 MG/DL Random Glucose 94 MG/DL Total Protein 6.7 GM/DL Albumin 1.9 GM/DL Calcium Level 8.3 MG/DL Alkaline Phosphatase 270 U/L Aspartate Amino Transf (AST/SGOT) 35 U/L Alanine Aminotransferase (ALT/SGPT) 29 U/L Total Bilirubin 0.5 MG/DL Sodium Level 138 MEQ/L Potassium Level 4.5 MEQ/L Chloride Level 103 MEQ/L Carbon Dioxide Level 26.8 MEQ/L Test 11/04/17 09:00 11/04/17 12:15 11/04/17 13:15 11/05/17 19:57 Urine Color YELLOW Urine Turbidity HAZY Urine pH 5.5 Urine Specific Victor 1.020 Urine Protein TRACE mg/dL Urine Glucose (UA) NEG mg/dL Urine Ketones NEG mg/dL Urine Occult Blood NEG Urine Nitrite NEG Urine Bilirubin NEG Urine Urobilinogen 2.0 MG/DL Urine Leukocyte Esterase SMALL Urine RBC 1 /hpf Urine WBC 3 /hpf Urine Squamous Epithelial Cells 1 /hpf Urine Amorphous Sediment RARE Urine Bacteria FEW /hpf Urine Hyaline Casts 10 /lpf Urine Mucus FEW /lpf Microscopic Urinalysis Comment CULT NOT INDICATED Urine Random Creatinine 145.1 MG/DL Urine Random Sodium 6 MEQ/L Stool C. difficile Toxin (PCR) NEGATIVE Stl C. difficile Toxin Epiderm 027 PRESUMPTIVE NEGATIVE Prothrombin Time 10.9 SEC Prothromb Time International Ratio 1.1 RATIO B-Type Natriuretic Peptide 57 PG/ML Anti-Nuclear Antibody Screen NEG Anti-Proteinase 3 (c-ANCA) LESS THAN 1.0 AI Anti-Myeloperoxidase Ab (p-ANCA) 1.1 AI Test 11/07/17 07:35 11/11/17 07:08 White Blood Count 4.6 TH/MM3 Red Blood Count 2.73 MIL/MM3 Hemoglobin 8.9 GM/DL Hematocrit 26.4 % Mean Corpuscular Volume 96.8 FL Mean Corpuscular Hemoglobin 32.6 PG Mean Corpuscular Hemoglobin Concent 33.6 % Red Cell Distribution Width 17.4 % Platelet Count 182 TH/MM3 Mean Platelet Volume 8.9 FL Neutrophils (%) (Auto) 67.6 % Lymphocytes (%) (Auto) 17.5 % Monocytes (%) (Auto) 13.5 % Eosinophils (%) (Auto) 0.7 % Basophils (%) (Auto) 0.7 % Neutrophils # (Auto) 3.1 TH/MM3 Lymphocytes # (Auto) 0.8 TH/MM3 Monocytes # (Auto) 0.6 TH/MM3 Eosinophils # (Auto) 0.0 TH/MM3 Basophils # (Auto) 0.0 TH/MM3 CBC Comment DIFF FINAL Differential Comment Blood Urea Nitrogen 33 MG/DL Creatinine 1.08 MG/DL Random Glucose 84 MG/DL Albumin 2.6 GM/DL Calcium Level 8.1 MG/DL Phosphorus Level 1.4 MG/DL Sodium Level 138 MEQ/L Potassium Level 4.7 MEQ/L Chloride Level 108 MEQ/L Carbon Dioxide Level 22.1 MEQ/L Anion Gap 8 MEQ/L Estimat Glomerular Filtration Rate 51 ML/MIN Objective Remarks GENERAL: Alert and oriented, no acute distress. SKIN: Warm and dry. No rash. HEENT: Normocephalic. Atraumatic. EOMI. Mucous membranes pink and moist. CARDIOVASCULAR: Regular rate and rhythm. S1, S2 noted. No murmur appreciated. RESPIRATORY: Nonlabored. Clear to auscultation bilaterally. GASTROINTESTINAL: Soft, non tender, moderate distention. MUSCULOSKELETAL: No obvious deformities. Extremities without clubbing, cyanosis or edema. NEUROLOGICAL: Awake and alert. No obvious cranial nerve deficits. PSYCHIATRIC: Appropriate mood and affect. Medications and IVs Current Medications Medications (Trade) Dose Ordered Sig/Miranda Route Start Time Stop Time Status Last Admin (D50w (Vial) Inj) 50 ml UNSCH PRN IV PUSH 11/01/17 20:30 11/06/17 01:24 (Glucagon Inj) 1 mg UNSCH PRN OTHER 11/01/17 20:30 (Compazine Inj) 10 mg Q4H PRN IV PUSH 11/01/17 20:30 11/08/17 19:14 (NS Flush) 2 ml UNSCH PRN IV FLUSH 11/01/17 20:30 (NS Flush) 2 ml BID IV FLUSH 11/01/17 21:00 11/11/17 12:24 (Zofran Inj) 4 mg Q6H PRN IVP 11/01/17 20:30 11/07/17 16:21 (Roxicodone) 5 mg Q4H PRN PO 11/01/17 20:30 (Sherlyn-Colace) 1 tab BID PO 11/01/17 21:00 Future Hold 11/03/17 21:01 (Milk Of Magnesia Liq) 30 ml Q12H PRN PO 11/01/17 20:30 (Senokot) 17.2 mg Q12H PRN PO 11/01/17 20:30 (Dulcolax Supp) 10 mg DAILY PRN RECTAL 11/01/17 20:30 (Norvasc) 2.5 mg DAILY PO 11/02/17 09:00 Future Hold 11/03/17 09:05 (Catapres) 0.1 mg BID PO 11/01/17 21:00 Future Hold 11/03/17 21:01 (Xalatan 0.005% Opth Soln) 1 drop HS EACH EYE 11/01/17 21:00 11/10/17 21:25 (Synthroid) 88 mcg DAILY@0600 PO 11/02/17 06:00 11/11/17 06:46 (Deltasone) 10 mg DAILY PO 11/02/17 09:00 11/11/17 09:57 (Zoloft) 50 mg DAILY PO 11/02/17 09:00 11/11/17 09:57 (Aldactone) 25 mg DAILY PO 11/02/17 09:00 11/11/17 09:57 (Ativan Inj) 0.5 mg Q2H PRN IV PUSH 11/01/17 21:00 11/01/17 21:36 (Antivert) 25 mg Q6HR PRN PO 11/01/17 21:00 (Roxicodone) 10 mg Q4H PRN PO 11/01/17 21:00 11/03/17 21:03 (Levemir Inj) 20 units DAILY SQ 11/02/17 11:45 Future Hold 11/11/17 12:20 (Protonix) 40 mg DAILY PO 11/05/17 09:00 11/11/17 09:57 (Lactulose Liq) 30 ml TID PO 11/04/17 18:00 11/11/17 16:59 (Levemir Inj) 5 units HS SQ 11/09/17 21:00 11/10/17 21:20 (NovoLOG SUPPLEMENTAL SCALE) 1 ACHS SLIDING SCALE SQ 11/10/17 12:00 11/11/17 17:00 (Ambien) 5 mg HS PRN PO 11/10/17 09:00 A/P Assessment and Plan Nausea/Vomiting with Dysphagia: - today had nausea and vomit in am. - EGD 11/03 found gastroparesis, Gastritis, negative H pylori, was advance diet by GI specialist on Spironolactone. Patient apparently had been in a liver transplant program in the past but has not followed up Patient will probably require to follow-up with a transplant center she may need TIPS or splenorenal shunt to reduce risk of bleeding from her varices this will be determined by a transplant center Status post paracentesis obtained 4100 ml of fluid. Okay to discharge as per GI Specialist. Recurrent Ascites with Cirrhosis secondary to Autoimmune Hepatitis: s/p paracentesis on 10/16 and 10/28, 6L removed. -last paracentesis yesterday 5300L removed. Has discussed TIPS procedure with her Center physician. -continue patient's home meds including lactulose qid, spironolactone, mercaptopurine. No lasix due to OSVALDO and soft BP. New Ultrasound Guided paracentesis 11/10/17 obtained 4100 ml of fluid. Diarrhea, improved -on lactulose, dose decreased to TID. Discussed with patient importance of 2-3 soft BMs daily, will need to increase dose of Lactulose or add Rifaximin if not enough stools. -C diff negative OSVALDO on CKD stage III: Cr 2.13, baseline around 1.4. today Improved to 1.08 -continue IV Albumin, avoid nephrotoxins, continue to hold home HCTZ and losartan Has Hypophosphatemia replaced by Nephrology specialist and following. Hyperkalemia: K 5.6 upon arrival, Improved. today 4.7 Diabetes Mellitus: chronic, patient with very labile blood glucose on prior admissions -A1c level 8.2 -developed again hypoglycemia with insulin, decreased Levemir to 10 units in am and 5 units in PM. Hypertension: chronic -Clonidine and Norvasc on hold secondary to low BP. HCTZ/losartan on hold for OSVALDO. -Controlled today. Hypothyroidism: chronic -continue patient's Synthroid -TSH 5.680 10/19/17 Temporal Arteritis: chronic -continue patient's home prednisone 10mg daily DVT Prophylaxis: teds/SCDs. Heparin sq Discharge Planning Once cleared by Nephrology specialist not yet cleared. Chuck Hancock MD Nov 11, 2017 17:11
[2017-11-11 20:00] VITALS: BP 128/65; PULSE 91; RESP 18; TEMP 98.1; O2SAT 97
[2017-11-11] MEDS: LATANOPROST 0.005% OPHT SOLN 2.5 ML BTL EACH EYE SCH (21:53)
[2017-11-12] VITALS: BP 124/65; PULSE 89; RESP 17; TEMP 97.2; O2SAT 98
[2017-11-12] MEDS: LEVOTHYROXINE SODIUM 88 MCG TAB PO SCH (05:08)
[2017-11-12 05:45] LABS: CALCIUM 8.1 MG/DL (8.5-10.1); CREATININE 1.13 MG/DL (0.50-1.00); PHOSPHORUS 1.9 MG/DL (2.5-4.9)
[2017-11-12 08:00] VITALS: BP 138/63; PULSE 90; RESP 18; TEMP 97.8; O2SAT 98
[2017-11-12] MEDS ORDERED: INSULIN DETEMIR 100 UNITS/ML VIAL SQ SCH (08:00)
[2017-11-12] MEDS: INSULIN ASPART SUPPLEMENTAL SCALE SQ SCH ×4 (08:00→17:01)
--- NOTE | 2017-11-12 08:27 | HHI.PR ---
Subjective Remarks Follow-up for autoimmune hepatitis, cirrhosis/ascites. Patient is currently doing well. No acute concerns. No fever or chills. Objective Vitals Vital Signs Date Time Temp Pulse Resp B/P (MAP) Pulse Ox O2 Delivery O2 Flow Rate FiO2 11/12/17 00:00 97.2 89 17 124/65 (84) 98 11/11/17 20:00 98.1 91 18 128/65 (86) 97 11/11/17 16:00 98.3 98 18 121/68 (85) 97 11/11/17 12:00 98.5 101 18 148/80 (102) 99 I/O 11/11/17 11/11/17 11/11/17 11/12/17 11/12/17 11/12/17 07:00 15:00 23:00 07:00 15:00 23:00 Intake Total 240 ml 800 ml 240 ml Output Total 4 ml Balance 240 ml 796 ml 240 ml Intake Oral 240 ml 800 ml 240 ml Output Urine Total 4 ml # Voids 3 3 Result Diagram: 11/12/17 0310 Imaging Last Impressions Cyst Biopsy Asp-Paracentesis US 11/10/17 0000 Signed Impressions: Service Date/Time: Friday, November 10, 2017 09:40 - CONCLUSION: Uncomplicated ultrasound guided paracentesis. Satish Moeller MD Chest X-Ray 11/04/17 0000 Signed Impressions: Service Date/Time: Saturday, November 04, 2017 08:35 - CONCLUSION: No acute disease. Jose Waggoner Jr., MD Renal Ultrasound 11/03/17 0000 Signed Impressions: Service Date/Time: Friday, November 03, 2017 17:41 - CONCLUSION: 1. No acute abnormality is seen in the kidneys. 2. 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 This can be seen on the CT examination. 3. Moderate ascites. Yayo Hall MD Abdomen/Pelvis CT 11/01/17 [id number] Signed Impressions: Service Date/Time: Wednesday, November 01, 2017 19:35 - CONCLUSION: Moderate ascites the small shrunken liver stable from the previous exam. Marco Chaudhari MD FACR Objective Remarks GENERAL: SKIN: Warm and dry. HEAD: Normocephalic. EYES: No scleral icterus. No injection or drainage. NECK: Supple, trachea midline. No JVD or lymphadenopathy. CARDIOVASCULAR: Regular rate and rhythm without murmurs, gallops, or rubs. RESPIRATORY: Breath sounds equal bilaterally. No accessory muscle use. GASTROINTESTINAL: Abdomen soft, non-tender, nondistended. MUSCULOSKELETAL: No cyanosis, or edema. BACK: Nontender without obvious deformity. No CVA tenderness. Procedures EGD 10/31/2017 Grade 1 esophageal varix 1: Food residue suggestive of gastroparesis Abnormal antral mucosa of unclear significance possible gastritis 10/27/2017 -paracentesis. Fluid removal 5300 cc. A/P Problem List: (1) Autoimmune hepatitis ICD Code: K75.4 - Autoimmune hepatitis Status: Acute Permanent Comment: 07/24/16: Evaluated at [facility] for liver transplant. Declined, too early for transplant. 06/09/16: UGD_minimal grade 1 esophageal viruses, normal stomach, normal examined duodenum Colonoscopy: one 3 mm polyp in the transverse colon, ( hyperplastic polyp), examination, otherwise normal. MRI abdomen without plus with/CSY: Cirrhotic hepatic morphology. No suspicious lipid lesions. Conventional hepatic arterial anatomy. Portal veins and hepatic veins are patent. Prominent portal-systemic collateral veins about the EEG junction. Patent paraumbilical collateral. Splenomegaly. Trace ascites. Adult transthoracic echocardiogram: EF 70%. Normal global and regional left ventricular systolic function. Normal left ventricular diastolic function. Last Edited By: Naa Enrique on Jul 29, 2016 8:32 am (2) Intractable nausea and vomiting ICD Code: R11.2 - Nausea with vomiting, unspecified (3) Ascites ICD Code: R18.8 - Other ascites (4) Hyperkalemia ICD Code: E87.5 - Hyperkalemia (5) Renal insufficiency ICD Code: N28.9 - Disorder of kidney and ureter, unspecified (6) DM (diabetes mellitus) ICD Code: E11.9 - Type 2 diabetes mellitus without complications Assessment and Plan This is a 67-year-old female with a PMH of HTN, Hyperlipidemia, Autoimmune Hepatitis, Cirrhosis, Recurrent Ascites, Anxiety, Depression, CKD and DM who presented to the ER with complaints of dizziness in addition to nausea and vomiting for approx 2 days prior to this admission on 11/01/2017. Recent admit -10/29/17 for ascites requiring paracentesis, s/p 6L removed. On arrival, BP 137/78, HR 105, O2 sat 98% on RA, Afebrile. CBC at baseline. K+ 5.6. Creatinine 1.74, previously 1.59 on 10/29/2017. LFTs at baseline. CT Abdomen/ Pelvis with moderate ascites, small shrunken liver stable from previous exam. Dysphagia Gastroenteritis Today had nausea and vomit in am. EGD 11/03 found gastroparesis, Gastritis, negative H pylori, was advance diet by GI. Currently on Spironolactone. Patient apparently had been in a liver transplant program in the past but has not followed up Patient will probably require to follow-up with a transplant center she may need TIPS or splenorenal shunt to reduce risk of bleeding from her varices this will be determined by a transplant center Status post paracentesis obtained 4100 ml of fluid. Okay to discharge as per GI Recurrent Ascites with Cirrhosis secondary to Autoimmune Hepatitis: s/p paracentesis on 10/16 and 10/28, 6L removed. Paracentesis 11/04/2017 5300L removed. Has discussed TIPS procedure with her [place] physician. Continue patient's home meds including lactulose qid, spironolactone, mercaptopurine. No Lasix due to OSVALDO and soft BP. New Ultrasound Guided paracentesis 11/10/17 obtained 4100 ml of fluid. Diarrhea, improved on lactulose, dose decreased to TID. Discussed with patient importance of 2-3 soft BMs daily, will need to increase dose of Lactulose or add Rifaximin if not enough stools. C diff negative OSVALDO on CKD stage III: Cr 2.13, baseline around 1.4. Improved to 1.08, 1.13. continue IV Albumin, avoid nephrotoxins, continue to hold home HCTZ and losartan Has Hypophosphatemia replaced by Nephrology and following. Hyperkalemia: K 5.6 upon arrival, Improved. today 4.7 Diabetes Mellitus: chronic, patient with very labile blood glucose on prior admissions A1c level 8.2 developed again hypoglycemia with insulin, decreased Levemir to 5 units at night only and gradually increase the dose as needed. Hypertension: chronic Clonidine and Norvasc on hold. Currently normotensive. Hypothyroidism: chronic continue patient's Synthroid TSH 5.680 10/19/17 Temporal Arteritis: chronic continue patient's home prednisone 10mg daily DVT Prophylaxis: teds/SCDs. Heparin sq Full code. Discharge plan: I placed a call to discuss with Jeffy dean regarding SNF placement. Patient does not feel comfortable going home since she is at home by herself most of the day. 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 Carl Skaggs DO Nov 12, 2017 8:26 am
[2017-11-12] MEDS: PANTOPRAZOLE SOD 40 MG DELAYED RELEASE TAB PO SCH (10:42)
[2017-11-12] MEDS: SPIRONOLACTONE 25 MG TAB PO SCH (10:42)
[2017-11-12] MEDS: predniSONE 10 MG TAB PO SCH (10:42)
[2017-11-12] MEDS: SERTRALINE HCL 50 MG TAB PO SCH (10:42)
[2017-11-12] MEDS: LACTULOSE SYRUP 20 GM/30 ML CUP PO SCH ×3 (10:42→18:05)
[2017-11-12] MEDS: SODIUM CHLORIDE 0.9% FLUSH 10 ML FLUSH IV FLUSH SCH (10:42)
[2017-11-12 11:26] VITALS: BP 126/68; PULSE 90; RESP 18; TEMP 97.9; O2SAT 98
--- NOTE | 2017-11-12 12:14 | HHI.NPPN ---
Subjective Renal Failure: Chronic, Acute, Stage III History of Present Illness Patient is a 67-year-old female with a PMH of HTN, Hyperlipidemia, Autoimmune Hepatitis, Cirrhosis, Recurrent Ascites, Anxiety, Depression, CKD stage 3 and DM. Presented to the ER with complaints of dizziness,nausea and vomiting. Recent admission 10/28-10/29/17 for ascites requiring paracentesis, s/p 6L removed. Nephrology is consulted for acute kidney injury with creatinine today of 2.06 abd potassium WNL. On admission K+ 5.6. Creatinine 1.74. Reviewing records patient appears to have CKD stage 3. Creatinine in 06/26 at 1.40. Renal US with no acute abnormality. Patient is s/p paracentesis today for 5300L. Additional Remarks Patient reports that she is feeling much better. No SOB, CP, or nausea. (Kathy Monsivais) Review of Systems General Constitutional: Fatigue (Kathy Monsivais) Respiratory Respiratory Remarks No SOB (Kathy Monsivais) Cardiovascular Cardiac Remarks No CP (Kathy Monsivais) Gastrointestinal Gastrointestinal: Nausea & Vomiting (Kathy Monsivais) Objective Data Data Vital Signs Date Time Temp Pulse Resp B/P (MAP) Pulse Ox O2 Delivery O2 Flow Rate FiO2 11/12/17 11:26 97.9 90 18 126/68 (87) 98 11/12/17 08:00 97.8 90 18 138/63 (88) 98 11/12/17 00:00 97.2 89 17 124/65 (84) 98 11/11/17 20:00 98.1 91 18 128/65 (86) 97 11/11/17 16:00 98.3 98 18 121/68 (85) 97 (Kathy Monsivais) -: 11/12/17 0310 Physical Exam General Appearance: No Acute Distress, Anxious (Kathy Monsivais) Pulmonary Resp Exam: Breath Sounds Equal, No Distress, Diminished Breath Sounds (Kathy Monsivais) Cardiology CV Exam: Regular (Kathy Monsivais) Gastrointestinal/Abdomen GI Exam: Soft, Non-Tender, Distended (Kathy Monsivais) Genitourinary Exam: Flank Non-Tender (Kathy Monsivais) Integumentary Skin Exam: Clear, Warm, Dry (Ktahy Monsivais) Extremeties Extremities Exam: No Edema (Kathy Monsivais) Neurologic Neuro Exam: Alert, Awake, Oriented (Kathy Monsivais) Psychiatric Psych Exam: Appropriate Responses (Kathy Monsivais) Assessment/Plan Discussed Condition With: Patient Assessment Summary: OSVALDO/Acute Renal Failure Problem List: (1) OSVALDO (acute kidney injury) ICD Codes: N17.9 - Acute kidney failure, unspecified Status: Acute Plan: CKD stage 3 with creatinine noted in 06/26 at 1.40 trace proteinuria noted. Most likely related to pre renal, or third spacing. Acute Kidney injury with FeNa of 0.06% suggesting prerenal however can also be low with ATN in cirrhosis. With past medical history of n/v/d prerenal is likely Renal US: . No acute abnormality is seen in the kidneys. Paracentesis done and 4.1 liters removed. Plan Phosphorus level low will add IV replacement Will continue to monitor UOP and BMP Avoid nephrotoxins when possible. (2) Anemia ICD Codes: D64.9 - Anemia, unspecified Status: Acute Plan: Anemia will monitor (3) Type 2 diabetes mellitus ICD Codes: E11.9 - Type 2 diabetes mellitus without complications Status: Chronic Plan: Maintain BS between 140mg/dl to 180mg/dl (4) HTN (hypertension) ICD Codes: I10 - Essential (primary) hypertension Plan: Well controlled (5) Insomnia ICD Codes: G47.00 - Insomnia, unspecified Plan: Ambien PRN (Kathy Monsivais) Problem List: (1) OSVALDO (acute kidney injury) ICD Codes: N17.9 - Acute kidney failure, unspecified Status: Acute Plan: CKD stage 3 with creatinine noted in 06/26 at 1.40 trace proteinuria noted. Most likely related to pre renal, or third spacing. Acute Kidney injury with FeNa of 0.06% suggesting prerenal however can also be low with ATN in cirrhosis. With past medical history of n/v/d prerenal is likely Renal US: . No acute abnormality is seen in the kidneys. Paracentesis done and 4.1 liters removed. Plan Phosphorus level low will add IV replacement Will continue to monitor UOP and BMP Avoid nephrotoxins when possible. Patient seen and examined, agree with above. For discharge, follow with her PCP. (2) Anemia ICD Codes: D64.9 - Anemia, unspecified Status: Acute Plan: Anemia will monitor (3) Type 2 diabetes mellitus ICD Codes: E11.9 - Type 2 diabetes mellitus without complications Status: Chronic Plan: Maintain BS between 140mg/dl to 180mg/dl (4) HTN (hypertension) ICD Codes: I10 - Essential (primary) hypertension Plan: Well controlled (5) Insomnia ICD Codes: G47.00 - Insomnia, unspecified Plan: Tai THIBODEAUX (Pantera Wilkins MD) Kathy Monsivais Nov 12, 2017 12:14 Pantera Wilkins MD Nov 12, 2017 18:54
[2017-11-12] MEDS ORDERED: SODIUM PHOSPHATE INJ 15 MMOL in SODIUM CHLORIDE 0.9% INJ 150 ML IV ONE (14:00)
--- NOTE | 2017-11-12 14:22 | HHI.FF ---
Face to Face Verification Diagnosis: (1) Autoimmune hepatitis (2) DM (diabetes mellitus) (3) Hyperkalemia Physical Therapy Order: Evaluate and Treat, Improve ambulation, Strength and gait training Home Health Nursing Order: Medical education Signs/symptoms of disease process Nursing assessment with vital signs Home Health Aide Order: To Assist In: Bathing and personal care, carbonation tester and meal prep I have seen patient Shaista Mooney on 11/12/17. My clinical findings support the need for the requested home health care services because: Ltd mobility - disease progression Deconditioned w/ increased weakness Limited ability to care for self Need for psychosocial assistance Impaired cognition/judgement High risk of falls Infection w/ risk of complications I certify that my clinical findings support that this patient is homebound because: Impaired cognitive ability/safety Unsteady gait/balance Unsafe to leave home unassisted Need for psychosocial assistance Unable to use public transportation Carl Skaggs DO Nov 12, 2017 2:22 pm
[2017-11-12] MEDS ORDERED: LEVEMIR SQ (14:24)
[2017-11-12 15:32] VITALS: BP 126/72; PULSE 107; RESP 18; TEMP 97.6; O2SAT 100
== END 2017-11-12 18:30 | disposition home health service (06) | DRG 441 ==
LOC: NEPD 15:26 → NEDA 20:28 → NEPHCDU 21:40 → OBSVTOIN 11-04 12:36 → N07A 11-05 12:48
PROVIDERS: ADMIT Hospitalist; ATTEND Hospitalist
PROC: 0DB78ZX Excision of Stomach, Pylorus, Via Natural or Artificial Opening Endoscopic, Diagnostic (ICD-10-PCS; principal; 2017-11-03 09:55)
PROC: 0W9G3ZZ Drainage of Peritoneal Cavity, Percutaneous Approach (ICD-10-PCS; 2017-11-04)
PROC: 0W9G3ZZ Drainage of Peritoneal Cavity, Percutaneous Approach (ICD-10-PCS; 2017-11-10)
DX: K75.4 Autoimmune hepatitis (principal); K76.7 Hepatorenal syndrome; N17.9 Acute kidney failure, unspecified; I95.9 Hypotension, unspecified; R18.8 Other ascites; E11.22 Type 2 diabetes mellitus with diabetic chronic kidney disease; I85.00 Esophageal varices without bleeding; E11.649 Type 2 diabetes mellitus with hypoglycemia without coma; K29.00 Acute gastritis without bleeding; K31.84 Gastroparesis; E11.43 Type 2 diabetes mellitus with diabetic autonomic (poly)neuropathy; N18.3 Chronic kidney disease, stage 3 (moderate); E87.5 Hyperkalemia; R13.10 Dysphagia, unspecified; K74.60 Unspecified cirrhosis of liver; R16.1 Splenomegaly, not elsewhere classified; E03.9 Hypothyroidism, unspecified; E86.0 Dehydration; K21.9 Gastro-esophageal reflux disease without esophagitis; I12.9 Hypertensive chronic kidney disease with stage 1 through stage 4 chronic kidney disease, or unspecified chronic kidney disease; K44.9 Diaphragmatic hernia without obstruction or gangrene; K57.30 Diverticulosis of large intestine without perforation or abscess without bleeding; K59.09 Other constipation; E78.5 Hyperlipidemia, unspecified; D63.1 Anemia in chronic kidney disease; M31.6 Other giant cell arteritis; G47.00 Insomnia, unspecified; E83.39 Other disorders of phosphorus metabolism; M19.90 Unspecified osteoarthritis, unspecified site; F32.9 Major depressive disorder, single episode, unspecified; F41.9 Anxiety disorder, unspecified; Z79.4 Long term (current) use of insulin; Z88.0 Allergy status to penicillin; Z88.1 Allergy status to other antibiotic agents; Z88.2 Allergy status to sulfonamides
CPT/HCPCS: 49083; 71045; 74176; 76775; 76937; 80048; 80053; 80069; 81001; 82105; 82140; 82272; 82570; 82948; 83036; 83690; 83880; 84100; 84300; 85025; 85610; 86021; 86038; 87493; 88305; 88312; 94150; 96361; 96372; 96374; 96375; C1729; C9113; G0378; G8987-GP; G8988-GP; J0330; J0780; J1170; J1644; J1815; J1885; J2060; J2405; J7030; J7040; J7042; J7512; P9047

== ENCOUNTER 2017-11-14 10:44 | Emergency (ER) | payer OTHER ==
[~2017-11-14] VITALS: Ht 157.5 cm; Wt 55.0 kg
[~2017-11-14 10:44] MED LIST changes: -AMLO2.5T PO; +AMLO5 PO; -HYDR12.57 PO; +OXYC-392 PO; +PANT40TA3 PO
[2017-11-14 10:57] VITALS: BP 110/65; PULSE 80; RESP 18; O2SAT 94
--- NOTE | 2017-11-14 11:19 | PD ---
HPI Chief Complaint: Dizziness Time Seen by Provider: 11:01 Travel History International Travel<30 days: No Contact w/Intl Traveler<30days: No Traveled to known affect area: No History of Present Illness HPI 67-year-old female with PMH of brittle DM, hepatitis C, liver failure, esophageal varices, ascites presents to the ED via EMS for evaluation of low blood pressures with accompanying dizziness and blurred vision. Onset this morning. On presentation she endorses "mild" frontal headache, onset 10-15 minutes ago. She endorses similar headaches in the past. She endorses chronic weakness and accompanying shortness of breath, worsened by large volume of ascites. She denies chest pain, palpitations, nausea, vomiting, hematemesis, cough, changes in bowel habits. The patient was just discharged from the hospital 2 days ago, currently staying in [facility]. 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, GERD, COLITIS) GERD: No Genitourinary: Yes (CKD) Headaches: Yes Hepatitis: Yes (AUTOIMMUNE) Hypertension: Yes Immune Disorder: Yes (AUTOIMMUNE HEPATITIS) Implanted Vascular Access Dvce: No Musculoskeletal: Yes (ARTHRITIS) Neurologic: No Psychiatric: No Reproductive: No Respiratory: No Immunizations Current: Yes Radiation Therapy: No Renal Failure: Yes (acute/chronic kidney disease) Seizures: No Sleep Apnea: No Thyroid Disease: Yes (HYPOTHYROIDISM) ?: Not Menopausal: Yes Ovarian Cysts: Yes (1985) Past Surgical History Abdominal Surgery: Yes (paracenthesis) Appendectomy: Yes Gynecologic Surgery: Yes (HYSTERECTOMY ) Hysterectomy: Yes Pacemaker: No Other Surgery: Yes (LIVER/BREAST BIOPSY 2005) Social History Alcohol Use: No Tobacco Use: No Substance Use: No Allergies-Medications (Allergen,Severity, Reaction): Coded Allergies: doxycycline (Verified Allergy, Severe, Rash, 11/01/17) minocycline (Verified Allergy, Severe, Rash, 11/01/17) morphine (Verified Allergy, Severe, Rash, 11/01/17) penicillin G (Verified Allergy, Severe, Rash, 11/01/17) tigecycline (Verified Allergy, Severe, Rash, 11/01/17) Sulfa (Sulfonamide Antibiotics) (Verified Allergy, Unknown, Rash, 11/01/17) clindamycin (Verified Allergy, Unknown, Nausea/Vomiting, 11/01/17) Reported Meds & Prescriptions Reported Meds & Active Scripts Active Macrobid (Nitrofurantoin Monoh/Nitrofur Macro) 100 Mg Cap 100 Mg PO BID 5 Days Levemir Inj (Insulin Detemir) 1,000 unit/ 10 ML Vial 10 Units SQ HS Do not mix with any other Insulin. GIVE ONE DOSE AT BED TIME, AND TITRATE NEEDED. Pantoprazole (Pantoprazole Sodium) 40 Mg Tab 40 Mg PO DAILY Oxycodone (Oxycodone HCl) 5 Mg Tab 5 Mg PO Q4H PRN DO NOT USE THIS MEDICINE IF YOU WILL DRIVE A CAR OR USE A MACHINE, ONLY USE IT WHEN RESTING AT HOME. Norvasc (Amlodipine Besylate) 5 Mg Tab 2.5 Mg PO DAILY Zofran Odt (Ondansetron Odt) 8 Mg Tab 8 Mg SL Q8H PRN [Lactulose Liq] 30 ML Syrp 30 Ml PO QID Spironolactone 25 Mg Tab 25 Mg PO DAILY Prednisone 10 Mg Tab 10 Mg PO DAILY 30 Days Clonidine (Clonidine HCl) 0.1 Mg Tab 0.1 Mg PO BID Zoloft (Sertraline HCl) 50 Mg Tab 50 Mg PO DAILY Reported Xalatan Opth Drops (Latanoprost) 0.005% Drops 1 Drop EACH EYE HS Levothyroxine (Levothyroxine Sodium) 88 Mcg Tab 88 Mcg PO DAILY Novolog Inj (Insulin Aspart) 1,000 Unit/10 Ml Vial 0 SQ DIRECTED Sliding Scale as directed. C-500 (Ascorbic Acid) 500 Mg Tab.chew 500 Mg PO DAILY Vitamin D3 (Cholecalciferol) 1,000 Unit Tab 1,000 Units PO DAILY Mercaptopurine 50 Mg Tab 50 Mg PO DAILY Review of Systems Except as stated in HPI: all other systems reviewed are Neg Physical Exam Narrative GENERAL: Well-nourished, well-developed white female in no acute distress. SKIN: Focused skin assessment warm/dry. HEAD: Normocephalic. Atraumatic. EYES: No scleral icterus. No injection or drainage. PERRLA. EOMI. NECK: Supple, trachea midline. No JVD or lymphadenopathy. CARDIOVASCULAR: Regular rate and rhythm without murmurs, gallops, or rubs. RESPIRATORY: Breath sounds clear and equal bilaterally. No accessory muscle use. GASTROINTESTINAL: Abdomen soft, diffusely mildly tender, mild distention. No fluid wave. Active bowel sounds. MUSCULOSKELETAL: No cyanosis, or edema. Moves extremities spontaneously. NEUROLOGICAL: Awake and alert. Cranial nerves II through XII intact. Motor and sensory grossly within normal limits. Five out of 5 muscle strength in all muscle groups. Normal speech. BACK: Nontender without obvious deformity. No CVA tenderness. Data Data Last Documented VS Vital Signs Date Time Temp Pulse Resp B/P (MAP) Pulse Ox O2 Delivery O2 Flow Rate FiO2 11/14/17 11:46 86 16 99 Room Air 11/14/17 11:44 106/59 (75) 91/53 (66) 83/53 (63) Orders Orders Electrocardiogram (11/14/17 11:19) Complete Blood Count With Diff (11/14/17 11:19) Comprehensive Metabolic Panel (11/14/17 11:19) Ckmb (Isoenzyme) Profile (11/14/17 11:19) Troponin I (11/14/17 11:19) Act Partial Throm Time (Ptt) (11/14/17 11:19) Prothrombin Time / Inr (Pt) (11/14/17 11:19) Urinalysis - C+S If Indicated (11/14/17 11:19) Chest, Single Ap (11/14/17 11:19) Ct Brain W/O Iv Contrast(Rout) (11/14/17 11:19) Ecg Monitoring (11/14/17 11:19) Iv Access Insert/Monitor (11/14/17 11:19) Oximetry (11/14/17 11:19) Sodium Chloride 0.9% Flush (Ns Flush) (11/14/17 11:30) Sodium Chlorid 0.9% 500 Ml Inj (Ns 500 M (11/14/17 11:30) Ammonia (11/14/17 11:21) Orthostatic Vital Signs (11/14/17 11:21) Blood Glucose (11/14/17 11:21) Vascular Access Team Consult/P PRN (11/14/17 11:52) Vascular Poc Ultrasound (11/14/17 ) Urine Culture (11/14/17 14:45) Ed Discharge Order (11/14/17 15:41) Labs Laboratory Tests Test 11/14/17 12:20 11/14/17 12:25 11/14/17 14:45 White Blood Count 6.0 TH/MM3 Red Blood Count 2.82 MIL/MM3 Hemoglobin 9.4 GM/DL Hematocrit 27.1 % Mean Corpuscular Volume 96.2 FL Mean Corpuscular Hemoglobin 33.3 PG Mean Corpuscular Hemoglobin Concent 34.6 % Red Cell Distribution Width 17.5 % Platelet Count 209 TH/MM3 Mean Platelet Volume 8.9 FL Neutrophils (%) (Auto) 77.7 % Lymphocytes (%) (Auto) 13.5 % Monocytes (%) (Auto) 8.5 % Eosinophils (%) (Auto) 0.1 % Basophils (%) (Auto) 0.2 % Neutrophils # (Auto) 4.7 TH/MM3 Lymphocytes # (Auto) 0.8 TH/MM3 Monocytes # (Auto) 0.5 TH/MM3 Eosinophils # (Auto) 0.0 TH/MM3 Basophils # (Auto) 0.0 TH/MM3 CBC Comment DIFF FINAL Differential Comment Prothrombin Time 10.6 SEC Prothromb Time International Ratio 1.0 RATIO Activated Partial Thromboplast Time 24.9 SEC Blood Urea Nitrogen 46 MG/DL Creatinine 1.73 MG/DL Random Glucose 242 MG/DL Total Protein 6.6 GM/DL Albumin 2.6 GM/DL Calcium Level 8.5 MG/DL Alkaline Phosphatase 299 U/L Aspartate Amino Transf (AST/SGOT) 50 U/L Alanine Aminotransferase (ALT/SGPT) 36 U/L Total Bilirubin 0.5 MG/DL Sodium Level 134 MEQ/L Potassium Level 5.7 MEQ/L Chloride Level 103 MEQ/L Carbon Dioxide Level 21.6 MEQ/L Anion Gap 9 MEQ/L Estimat Glomerular Filtration Rate 29 ML/MIN Total Creatine Kinase 48 U/L Troponin I 0.02 NG/ML Ammonia 26 MCMOL/L Urine Color YELLOW Urine Turbidity HAZY Urine pH 5.0 Urine Specific [place] 1.018 Urine Protein TRACE mg/dL Urine Glucose (UA) NEG mg/dL Urine Ketones NEG mg/dL Urine Occult Blood NEG Urine Nitrite NEG Urine Bilirubin NEG Urine Urobilinogen 2.0 MG/DL Urine Leukocyte Esterase SMALL Urine RBC 1 /hpf Urine WBC 20 /hpf Urine Squamous Epithelial Cells 3 /hpf Urine Transitional Epithelial Cells 9 /hpf Urine Bacteria OCC /hpf Urine Hyaline Casts 90 /lpf Urine Mucus FEW /lpf Microscopic Urinalysis Comment CULTURE INDICATED MDM Medical Decision Making Medical Screen Exam Complete: Yes Emergency Medical Condition: Yes Medical Record Reviewed: Yes Differential Diagnosis dehydration versus orthostatic hypotension versus anemia versus encephalopathy versus ICH versus metabolic derangement versus ACS versus DM versus other Narrative Course 67-year-old female with PMH of brittle DM, hepatitis C, liver failure, esophageal varices, ascites presents to the ED via EMS for evaluation of low blood pressures with accompanying dizziness and blurred vision. Onset this morning. She endorses chronic weakness and accompanying shortness of breath, worsened by large volume of ascites. She denies chest pain, palpitations, nausea, vomiting, hematemesis, cough, changes in bowel habits. The patient was just discharged from the hospital 2 days ago, currently staying in [facility]. Patient's afebrile on presentation. On exam is a nontoxic- appearing white female in no acute distress. Breath sounds clear and equal bilaterally. Moderately distended nontender abdomen without fluid wave shift. No lower extremity edema. Patient was administered 500 mL of normal saline. EKG rate 80, sinus rhythm. AL interval 185, QRS 94, QTc 449 ms. Normal axis. No acute ST changes. Reviewed by Dr. Cruz. Orthostatics: Positive. CXR: CT brain: No acute infarct, hemorrhage, mass or edema. CBC: WBC 6.0. Hemoglobin 9.4, anemia chronic. Improved since last blood draw. INR 1.0. CMP: BUN 46, creatinine 1.73. Ammonia 26. UA: Hazy, small leukocyte esterase, occasional bacteria. Culture pending. On recheck patient reports improvement of symptoms. I suspect her dizziness and hypotension was secondary to dehydration. She is currently in an DETENTION, has close follow-up. She is stable and discharged home. Diagnosis Primary Impression: Orthostatic hypotension Additional Impression: UTI (urinary tract infection) Qualified Codes: N39.0 - Urinary tract infection, site not specified Referrals: Primary Care Physician Additional Instructions: Rest, hydrate. Return to normal, gentle activities as tolerated. Take antibiotics as prescribed until the last pill is gone. Resume at home medications as prescribed. Follow-up with your primary care provider. Return to the ED for any urgent/ emergent medical condition. Scripts Nitrofurantoin Monohydrate Macrocrystals (Macrobid) 100 Mg Cap 100 MG PO BID for Infection for 5 Days, #10 CAP 0 Refills Prov: Kane Cruz MD 11/14/17 Disposition: 01 DISCHARGE HOME Condition: Stable Alejandra Dickey Nov 14, 2017 11:19
[2017-11-14] MEDS ORDERED: SODIUM CHLORIDE 0.9% FLUSH 10 ML FLUSH IVF PRN (11:30)
[2017-11-14] MEDS ORDERED: SODIUM CHLORID 0.9% 500 ML INJ 500 ML IV ONE (11:30)
[2017-11-14 11:44] VITALS: BP_SYST 106; BP_SYST 83; BP_SYST 91; BP_DIAS 53; BP_DIAS 59; RESP 14; RESP 16; O2SAT 100
--- NOTE | 2017-11-14 12:31 | RADRPT ---
EXAM DATE/TIME: 11/14/2017 12:01 [facility] COMPARISON: CHEST SINGLE AP, November 04, 2017, 8:35. INDICATIONS : Heart Palpitations MEDICAL HISTORY : None. SURGICAL HISTORY : None. ENCOUNTER: Initial ACUITY: 1 day PAIN SCORE: 0/10 LOCATION: chest FINDINGS: A single view of the chest demonstrates the lungs to be symmetrically aerated without evidence of mas s, infiltrate or effusion. The cardiomediastinal contours are unremarkable. Osseous structures are intact. CONCLUSION: No acute disease. Nena Bonilla MD on November 14, 2017 at 12:29 Board Certified Radiologist. This report was verified electronically.
[2017-11-14 12:51] LABS: AUTOMATED NEUTROPHIL # 4.7 TH/MM3 (1.8-7.7); BASOPHIL % 0.2 % (0.0-2.0); EOSINOPHIL % 0.1 % (0.0-4.0); HEMATOCRIT 27.1 % (35.0-46.0); HEMOGLOBIN 9.4 GM/DL (11.6-15.3); LYMPH % 13.5 % (9.0-44.0); LYMPHOCYTE # 0.8 TH/MM3 (1.0-4.8); MEAN CELL VOLUME 96.2 FL (80.0-100.0); MEAN CORPUSCULAR HEMOGLOBIN 33.3 PG (27.0-34.0); MEAN CORPUSCULAR HGB CONC 34.6 % (32.0-36.0); MEAN PLATELET VOLUME 8.9 FL (7.0-11.0); MONO % 8.5 % (0.0-8.0); MONOCYTE # 0.5 TH/MM3 (0-0.9); NEUT % 77.7 % (16.0-70.0); PLATELET COUNT 209 TH/MM3 (150-450); RED BLOOD COUNT 2.82 MIL/MM3 (4.00-5.30); RED CELL DISTRIBUTION WIDTH 17.5 % (11.6-17.2)
[2017-11-14 12:56] LABS: PROTHROMBIN TIME - PATIENT 10.6 SEC (9.8-11.6)
[2017-11-14 13:24] LABS: ALBUMIN 2.6 GM/DL (3.4-5.0); ALKALINE PHOSPHATASE 299 U/L (45-117); ALT (GPT) 36 U/L (10-53); AST (GOT) 50 U/L (15-37); BICARBONATE 21.6 MEQ/L (21.0-32.0); BLOOD UREA NITROGEN 46 MG/DL (7-18); CALCIUM 8.5 MG/DL (8.5-10.1); CHLORIDE 103 MEQ/L (98-107); CREATININE 1.73 MG/DL (0.50-1.00); GLOMERULAR FILTRATION RATE 29 ML/MIN (>89); GLUCOSE,RANDOM 242 MG/DL (74-106); SODIUM (NA) 134 MEQ/L (136-145); TOTAL BILIRUBIN ADULT 0.5 MG/DL (0.2-1.0); TOTAL PROTEIN 6.6 GM/DL (6.4-8.2); TROPONIN I 0.02 NG/ML (0.02-0.05)
--- NOTE | 2017-11-14 13:47 | RADRPT ---
EXAM DATE/TIME: 11/14/2017 13:04 [facility] COMPARISON: CT BRAIN W/O CONTRAST, April 10, 2017, 18:42. INDICATIONS : Patient complains of dizziness. RADIATION DOSE: 56.35 CTDIvol (mGy) MEDICAL HISTORY : Diabetes mellitus type 1. Hypertension. Cirrhosis. SURGICAL HISTORY : Appendectomy. Hysterectomy. ENCOUNTER: Initial ACUITY: 1 day PAIN SCALE: 0/10 LOCATION: cranial TECHNIQUE: Multiple contiguous axial images were obtained of the head. Using automated exposure control and adj ustment of the mA and/or kV according to patient size, radiation dose was kept as low as reasonably a chievable to obtain optimal diagnostic quality images. DICOM format image data is available electro nically for review and comparison. FINDINGS: CEREBRUM: The ventricles have enlarged compared to the prior study. No evidence of midline shift, mass lesion, hemorrhage or acute infarction. No extra-axial fluid collections are seen. POSTERIOR FOSSA: The cerebellum and brainstem are intact. The 4th ventricle is midline. The cerebellopontine angle i s unremarkable. EXTRACRANIAL: The visualized portion of the orbits is intact. SKULL: The calvaria is intact. No evidence of skull fracture. CONCLUSION: 1. Interval enlargement of the ventricular system without apparent cause. 2. No evidence of acute infarct, hemorrhage, mass or edema. Yaw Josue MD on November 14, 2017 at 13:42 Board Certified Radiologist. This report was verified electronically.
[2017-11-14 15:31] LABS: BACTERIA, URINE OCC /hpf; BILIRUBIN, URINE NEG (NEG); BLOOD, URINE NEG (NEG); GLUCOSE,URINE NEG (NEG); HYALINE CAST, URINE 90 /lpf (RARE); KETONE, URINE NEG (NEG); MUCUS URINE FEW /lpf (OCC); NITRITE,URINE NEG (NEG); SQUAMOUS EPITHELIAL CELL URINE 3 /hpf (0-5); TRANSITIONAL EPI CELLS, URINE 9 /hpf; URINE COLOR YELLOW (YELLW/STRAW); URINE LEUKOCYTE ESTERASE SMALL (NEG)
[2017-11-14] MEDS ORDERED: MACR100C2 PO (15:40)
--- NOTE | 2017-11-16 09:46 | EKG ---
Date Performed: 11/14/2017 Time Performed: 11:28:45 PTAGE: 67 years EKG: Sinus rhythm INFERIOR MYOCARDIAL INFARCTION ANTEROLATERAL MYOCARDIAL INFARCTION ABNORMAL ECG PREVIOUS TRACING : 10/06/2017 18.07 Since previous tracing, there is improvement in T-waves in lead V2, otherwise no significant change. DOCTOR: Toni Pickett Interpretating Date/Time 11/16/2017 09:46:03
== END 2017-11-14 17:08 | disposition home or self-care (01) ==
LOC: NEPE 10:44
DX: I95.1 Orthostatic hypotension (principal); N39.0 Urinary tract infection, site not specified; R94.31 Abnormal electrocardiogram [ECG] [EKG]; I12.9 Hypertensive chronic kidney disease with stage 1 through stage 4 chronic kidney disease, or unspecified chronic kidney disease; E10.22 Type 1 diabetes mellitus with diabetic chronic kidney disease; N18.9 Chronic kidney disease, unspecified; B19.20 Unspecified viral hepatitis C without hepatic coma; K72.90 Hepatic failure, unspecified without coma; K74.60 Unspecified cirrhosis of liver
CPT/HCPCS: 70450; 71045; 76937; 80053; 81001; 82140; 82550; 84484; 85025; 85610; 85730; 87086; 93005; 96360; 99285; J7040

== ENCOUNTER 2017-11-17 15:18 | Emergency (ER) | payer OTHER ==
[~2017-11-17 15:18] MED LIST changes: +MACR100C2 PO
[2017-11-17 15:23] VITALS: BP 112/75; PULSE 79; RESP 20; TEMP 98.4; O2SAT 99
--- NOTE | 2017-11-17 16:06 | PD ---
HPI Chief Complaint: Edema Time Seen by Provider: 15:35 Travel History International Travel<30 days: No Contact w/Intl Traveler<30days: No Traveled to known affect area: No History of Present Illness HPI This is a 67-year-old female with history of cirrhosis who presents via EMS requesting paracentesis. She reports abdominal distention on a chronic basis, gradually worsening, alleviated with paracentesis. She has had several paracentesis in the past. Denies fevers, chills, nausea, vomiting, diarrhea, constipation. She has been compliant with spironolactone and Lasix therapy. Primary care physician is Dr. Martinez. [employer] Dr. Garza. No other complaints at this time. 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, GERD, COLITIS) GERD: No Genitourinary: Yes (CKD) Headaches: Yes Hepatitis: Yes (AUTOIMMUNE) Hypertension: Yes Immune Disorder: Yes (AUTOIMMUNE HEPATITIS) Implanted Vascular Access Dvce: No Musculoskeletal: Yes (ARTHRITIS) Neurologic: No Psychiatric: No Reproductive: No Respiratory: No Immunizations Current: Yes Radiation Therapy: No Renal Failure: Yes (acute/chronic kidney disease) Seizures: No Sleep Apnea: No Thyroid Disease: Yes (HYPOTHYROIDISM) Menopausal: Yes Ovarian Cysts: Yes (1985) Past Surgical History Abdominal Surgery: Yes (paracenthesis) Appendectomy: Yes Gynecologic Surgery: Yes (HYSTERECTOMY ) Hysterectomy: Yes Pacemaker: No Other Surgery: Yes (LIVER/BREAST BIOPSY 2005) Social History Alcohol Use: No Tobacco Use: No Substance Use: No Allergies-Medications (Allergen,Severity, Reaction): Coded Allergies: doxycycline (Verified Allergy, Severe, Rash, 11/17/17) minocycline (Verified Allergy, Severe, Rash, 11/17/17) morphine (Verified Allergy, Severe, Rash, 11/17/17) penicillin G (Verified Allergy, Severe, Rash, 11/17/17) tigecycline (Verified Allergy, Severe, Rash, 11/17/17) Sulfa (Sulfonamide Antibiotics) (Verified Allergy, Unknown, Rash, 11/17/17) clindamycin (Verified Allergy, Unknown, Nausea/Vomiting, 11/17/17) Reported Meds & Prescriptions Reported Meds & Active Scripts Active Macrobid (Nitrofurantoin Monoh/Nitrofur Macro) 100 Mg Cap 100 Mg PO BID 5 Days Levemir Inj (Insulin Detemir) 1,000 unit/ 10 ML Vial 10 Units SQ HS Do not mix with any other Insulin. GIVE ONE DOSE AT BED TIME, AND TITRATE NEEDED. Pantoprazole (Pantoprazole Sodium) 40 Mg Tab 40 Mg PO DAILY Oxycodone (Oxycodone HCl) 5 Mg Tab 5 Mg PO Q4H PRN DO NOT USE THIS MEDICINE IF YOU WILL DRIVE A CAR OR USE A MACHINE, ONLY USE IT WHEN RESTING AT HOME. Norvasc (Amlodipine Besylate) 5 Mg Tab 2.5 Mg PO DAILY Zofran Odt (Ondansetron Odt) 8 Mg Tab 8 Mg SL Q8H PRN [Lactulose Liq] 30 ML Syrp 30 Ml PO QID Spironolactone 25 Mg Tab 25 Mg PO DAILY Prednisone 10 Mg Tab 10 Mg PO DAILY 30 Days Clonidine (Clonidine HCl) 0.1 Mg Tab 0.1 Mg PO BID Zoloft (Sertraline HCl) 50 Mg Tab 50 Mg PO DAILY Reported Xalatan Opth Drops (Latanoprost) 0.005% Drops 1 Drop EACH EYE HS Levothyroxine (Levothyroxine Sodium) 88 Mcg Tab 88 Mcg PO DAILY Novolog Inj (Insulin Aspart) 1,000 Unit/10 Ml Vial 0 SQ DIRECTED Sliding Scale as directed. C-500 (Ascorbic Acid) 500 Mg Tab.chew 500 Mg PO DAILY Vitamin D3 (Cholecalciferol) 1,000 Unit Tab 1,000 Units PO DAILY Mercaptopurine 50 Mg Tab 50 Mg PO DAILY Review of Systems Except as stated in HPI: all other systems reviewed are Neg Physical Exam Narrative GENERAL: Well-developed well-nourished female no acute distress SKIN: Warm and dry. HEAD: Atraumatic. Normocephalic. EYES: Pupils equal and round. No scleral icterus. No injection or drainage. ENT: No nasal bleeding or discharge. Mucous membranes pink and moist. NECK: Trachea midline. No JVD. CARDIOVASCULAR: Regular rate and rhythm. No murmur appreciated. RESPIRATORY: No accessory muscle use. Clear to auscultation. Breath sounds equal bilaterally. GASTROINTESTINAL: Distended, mild generalized tenderness to palpation without guarding. MUSCULOSKELETAL: No obvious deformities. Trace tibial edema bilaterally. NEUROLOGICAL: Awake and alert. No obvious cranial nerve deficits. Motor grossly within normal limits. Normal speech. Data Data Last Documented VS Vital Signs Date Time Temp Pulse Resp B/P (MAP) Pulse Ox O2 Delivery O2 Flow Rate FiO2 11/17/17 15:23 98.4 79 20 112/75 (87) 99 MDM Medical Decision Making Medical Screen Exam Complete: Yes Emergency Medical Condition: Yes Medical Record Reviewed: Yes Differential Diagnosis Ascites, cirrhosis, spontaneous bacterial peritonitis Narrative Course 67-year-old female with cirrhosis and ascites presents requesting therapeutic paracentesis. I discussed with interventional radiology department who would like the patient have this scheduled as an outpatient. Therefore an order has been written for the patient and faxed to the IR scheduling department. I reviewed her lab work from 3 days ago. She had a platelet count of 209, PT and PTT were normal. Discussed this with the interventional radiology team he reports that this does not need to be repeated. Patient is stable for discharge. Diagnosis Primary Impression: Cirrhosis of liver with ascites Additional Instructions: As discussed, call the number annual order sheet to schedule therapeutic paracentesis for tomorrow. 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 Med/Other Pt SpecificInfo: No Change to Meds Disposition: 01 DISCHARGE HOME Condition: Stable Armando Barrett Nov 17, 2017 16:05
== END 2017-11-17 16:15 | disposition home or self-care (01) ==
LOC: NEDAMB 15:18
DX: K74.60 Unspecified cirrhosis of liver (principal); R18.8 Other ascites; K75.9 Inflammatory liver disease, unspecified; I12.9 Hypertensive chronic kidney disease with stage 1 through stage 4 chronic kidney disease, or unspecified chronic kidney disease; E10.22 Type 1 diabetes mellitus with diabetic chronic kidney disease; N18.9 Chronic kidney disease, unspecified; F32.9 Major depressive disorder, single episode, unspecified; E78.00 Pure hypercholesterolemia, unspecified; E03.9 Hypothyroidism, unspecified
CPT/HCPCS: 99281

== ENCOUNTER 2017-11-19 10:11 | Day surgery (SDC) | payer OTHER ==
[2017-11-19 10:27] VITALS: BP 138/82; PULSE 84; RESP 16; TEMP 97.9; O2SAT 98
[2017-11-19] MEDS ORDERED: LIDOCAINE HCL 1% 20 ML VIAL ONE (11:25)
[2017-11-19] MEDS ORDERED: ALBUMIN 25% INJ 0 ML IV ONE (12:00)
[2017-11-19 12:25] VITALS: BP 123/68; PULSE 76; RESP 16; TEMP 97.9; O2SAT 97
[2017-11-19 12:40] VITALS: BP 130/75; PULSE 75; RESP 18; O2SAT 96
--- NOTE | 2017-11-19 13:41 | PD.RAD ---
Post US Procedure Prog Note Pre Procedure Diagnosis: (1) Cirrhosis of liver with ascites Post Procedure Diagnosis: (1) Cirrhosis of liver with ascites Procedure Date: Nov 19, 2017 Supervising Radiologist: Yayo Renee Estimated blood loss: none. Anesthesia: Local Plan of Activity Patient to Unit: ROPU Patient Condition: Good See PACS Report for procedural detail/treatment Drainage Procedure Procedure 1 Imaging Guidance: Ultrasound Side: Right Procedure Type: Paracentesis Drainage: Suction Fluid Removal (CCs): 7400 Fluid Description: Clear, Yellow Plan to ROPU for albumin then discharge. Yayo Renee MD Nov 19, 2017 13:40
--- NOTE | 2017-11-19 13:42 | RADRPT ---
EXAM DATE/TIME: 11/19/2017 10:28 [facility] COMPARISON: EXTERNAL COMPARISON: US GUIDED ABD PARACENTESIS, November 10, 2017, 9:40. [facility], MR ABDOMEN W/ & W/O, Jul 16, ULTRASOUND ABDOMEN LIMITED, July 12, 2015. INDICATIONS : Ascites. MEDICAL HISTORY : Hypothyroidism. Hypercholesterolemia. Cirrhosis. HTN. GERD. Diabetes. Hepatitis. Ascites. SURGICAL HISTORY : Appendectomy. Hysterectomy. Liver biopsy. Paracentesis. ENCOUNTER: Subsequent ACUITY: 1 week PAIN SCORE: 3/10 LOCATION: Right lower quadrant FLUID: Total volume of 7400 cc of clear, yellow fluid was removed. Fluid was discarded. Paracentesis was therapeutic only. Post procedure scanning reveals no hematoma or other complication. TECHNIQUE: 1. Ultrasound guidance for abdominal paracentesis. 2. Paracentesis. The risks, benefits, and alternatives to ultrasound guided paracentesis were explained to the patient in detail including the risk of bleeding and infection. Written and verbal informed consent was obt ained. With the patient on the ultrasound table, ultrasound imaging was used to select the most appropriate approach for paracentesis. Overlying skin was prepped and draped in the usual sterile fashion and wi th a local anesthetic, a dermatotomy was made with an 11 blade scalpel. A 6 Yi [id number] ca theter was introduced into the peritoneal cavity and fluid was collected. The patient tolerated the procedure well and left the ultrasound suite in stable condition. CONCLUSION: Uncomplicated ultrasound guided paracentesis. Yayo Renee MD on November 19, 2017 at 13:37 Board Certified Radiologist. This report was verified electronically.
== END 2017-11-19 14:05 | disposition home or self-care (01) ==
LOC: HRAD 10:11 → HRIP 10:34 → HRAD 14:05
PROVIDERS: ATTEND Physician Assistant Medical
DX: R18.8 Other ascites (principal); E03.9 Hypothyroidism, unspecified; E78.00 Pure hypercholesterolemia, unspecified; K74.60 Unspecified cirrhosis of liver; I10 Essential (primary) hypertension; K21.9 Gastro-esophageal reflux disease without esophagitis; E11.9 Type 2 diabetes mellitus without complications; K75.9 Inflammatory liver disease, unspecified
CPT/HCPCS: 49083; 96365; C1729; P9047

== ENCOUNTER 2017-11-24 09:32 | Inpatient (IN) | payer OTHER, MEDICARE ==
[~2017-11-24] VITALS: Ht 157.5 cm; Wt 48.7 kg
[2017-11-24 09:42] VITALS: BP 140/79; PULSE 89; RESP 18; TEMP 98.2; O2SAT 98
[2017-11-24 09:55] VITALS: RESP 20; O2SAT 98
--- NOTE | 2017-11-24 09:55 | PD ---
HPI Chief Complaint: Low blood sugars Time Seen by Provider: 09:41 Travel History International Travel<30 days: No Contact w/Intl Traveler<30days: No History of Present Illness HPI 67-year-old female patient with history of chronic liver disease, ascites, had her paracentesis done 4 days ago, presents to the ER today brought in by EMS because she was feeling shaky, was found to have low blood sugar of 60 and was given dextrose. She currently still complains of feeling shaky and mildly short of breath. She also complains of diffuse abdominal discomfort, bloating. She states that she has been having vomiting intermittently, not keeping things down. Modifying Factors: None Associated Signs & Symptoms: Feeling shaky, low blood sugar, vomiting Risk Factors: Liver disease 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, GERD, COLITIS) GERD: No Genitourinary: Yes (CKD) Headaches: Yes Hepatitis: Yes (AUTOIMMUNE) Hypertension: Yes Immune Disorder: Yes (AUTOIMMUNE HEPATITIS) Implanted Vascular Access Dvce: No Musculoskeletal: Yes (ARTHRITIS) Neurologic: No Psychiatric: No Reproductive: No Respiratory: No Immunizations Current: Yes Radiation Therapy: No Renal Failure: Yes (acute/chronic kidney disease) Seizures: No Sleep Apnea: No Thyroid Disease: Yes (HYPOTHYROIDISM) Menopausal: Yes Ovarian Cysts: Yes (1985) Past Surgical History Abdominal Surgery: Yes (paracenthesis) Appendectomy: Yes Gynecologic Surgery: Yes (HYSTERECTOMY ) Hysterectomy: Yes Pacemaker: No Other Surgery: Yes (LIVER/BREAST BIOPSY 2005) Social History Alcohol Use: No Tobacco Use: No Substance Use: No Allergies-Medications (Allergen,Severity, Reaction): Coded Allergies: doxycycline (Verified Allergy, Severe, Rash, 11/17/17) minocycline (Verified Allergy, Severe, Rash, 11/17/17) morphine (Verified Allergy, Severe, Rash, 11/17/17) penicillin G (Verified Allergy, Severe, Rash, 11/17/17) tigecycline (Verified Allergy, Severe, Rash, 11/17/17) Sulfa (Sulfonamide Antibiotics) (Verified Allergy, Unknown, Rash, 11/17/17) clindamycin (Verified Allergy, Unknown, Nausea/Vomiting, 11/17/17) Reported Meds & Prescriptions Reported Meds & Active Scripts Active Macrobid (Nitrofurantoin Monoh/Nitrofur Macro) 100 Mg Cap 100 Mg PO BID 5 Days Levemir Inj (Insulin Detemir) 1,000 unit/ 10 ML Vial 10 Units SQ HS Do not mix with any other Insulin. GIVE ONE DOSE AT BED TIME, AND TITRATE NEEDED. Pantoprazole (Pantoprazole Sodium) 40 Mg Tab 40 Mg PO DAILY Oxycodone (Oxycodone HCl) 5 Mg Tab 5 Mg PO Q4H PRN DO NOT USE THIS MEDICINE IF YOU WILL DRIVE A CAR OR USE A MACHINE, ONLY USE IT WHEN RESTING AT HOME. Norvasc (Amlodipine Besylate) 5 Mg Tab 2.5 Mg PO DAILY Zofran Odt (Ondansetron Odt) 8 Mg Tab 8 Mg SL Q8H PRN [Lactulose Liq] 30 ML Syrp 30 Ml PO QID Spironolactone 25 Mg Tab 25 Mg PO DAILY Prednisone 10 Mg Tab 10 Mg PO DAILY 30 Days Clonidine (Clonidine HCl) 0.1 Mg Tab 0.1 Mg PO BID Zoloft (Sertraline HCl) 50 Mg Tab 50 Mg PO DAILY Reported Xalatan Opth Drops (Latanoprost) 0.005% Drops 1 Drop EACH EYE HS Levothyroxine (Levothyroxine Sodium) 88 Mcg Tab 88 Mcg PO DAILY Novolog Inj (Insulin Aspart) 1,000 Unit/10 Ml Vial 0 SQ DIRECTED Sliding Scale as directed. C-500 (Ascorbic Acid) 500 Mg Tab.chew 500 Mg PO DAILY Vitamin D3 (Cholecalciferol) 1,000 Unit Tab 1,000 Units PO DAILY Mercaptopurine 50 Mg Tab 50 Mg PO DAILY Review of Systems Except as stated in HPI: all other systems reviewed are Neg Physical Exam Narrative GENERAL: Well-developed elderly white female patient currently and mild distress. Awake and oriented 3. SKIN: Focused skin assessment warm/dry. HEAD: Atraumatic. Normocephalic. EYES: Pupils equal and round. No scleral icterus. No injection or drainage. ENT: No nasal bleeding or discharge. Mucous membranes pink and moist. NECK: Trachea midline. No JVD. CARDIOVASCULAR: Regular rate and rhythm. No murmur appreciated. RESPIRATORY: No accessory muscle use. Clear to auscultation. Breath sounds equal bilaterally. GASTROINTESTINAL: Abdomen soft, mild diffuse tenderness without guarding or rebound, mildly distended. Hepatic and splenic margins not palpable. MUSCULOSKELETAL: No obvious deformities. No clubbing. No cyanosis. No edema. NEUROLOGICAL: Awake and alert. No obvious cranial nerve deficits. Motor grossly within normal limits. Normal speech. PSYCHIATRIC: Appropriate mood and affect; insight and judgment normal. Data Data Last Documented VS Vital Signs Date Time Temp Pulse Resp B/P (MAP) Pulse Ox O2 Delivery O2 Flow Rate FiO2 11/24/17 12:29 98.8 77 16 151/74 (99) 100 Room Air Orders Orders Electrocardiogram (11/24/17 09:47) Complete Blood Count With Diff (11/24/17 09:47) Comprehensive Metabolic Panel (11/24/17 09:47) Magnesium (Mg) (11/24/17 09:47) Ckmb (Isoenzyme) Profile (11/24/17 09:47) Troponin I (11/24/17 09:47) Act Partial Throm Time (Ptt) (11/24/17 09:47) Prothrombin Time / Inr (Pt) (11/24/17 09:47) Urinalysis - C+S If Indicated (11/24/17 09:47) Chest, Single Ap (11/24/17 09:47) Ecg Monitoring (11/24/17 09:47) Iv Access Insert/Monitor (11/24/17 09:47) Oximetry (11/24/17 09:47) Sodium Chloride 0.9% Flush (Ns Flush) (11/24/17 10:00) Sodium Chlorid 0.9% 500 Ml Inj (Ns 500 M (11/24/17 11:45) Admit Order (Ed Use Only) (11/24/17 12:26) Labs Laboratory Tests Test 11/24/17 10:10 White Blood Count 6.9 TH/MM3 Red Blood Count 3.55 MIL/MM3 Hemoglobin 11.6 GM/DL Hematocrit 34.3 % Mean Corpuscular Volume 96.8 FL Mean Corpuscular Hemoglobin 32.8 PG Mean Corpuscular Hemoglobin Concent 33.9 % Red Cell Distribution Width 18.0 % Platelet Count 200 TH/MM3 Mean Platelet Volume 8.5 FL Neutrophils (%) (Auto) 83.5 % Lymphocytes (%) (Auto) 9.5 % Monocytes (%) (Auto) 6.8 % Eosinophils (%) (Auto) 0.1 % Basophils (%) (Auto) 0.1 % Neutrophils # (Auto) 5.8 TH/MM3 Lymphocytes # (Auto) 0.7 TH/MM3 Monocytes # (Auto) 0.5 TH/MM3 Eosinophils # (Auto) 0.0 TH/MM3 Basophils # (Auto) 0.0 TH/MM3 CBC Comment DIFF FINAL Differential Comment Prothrombin Time 10.8 SEC Prothromb Time International Ratio 1.1 RATIO Activated Partial Thromboplast Time 21.1 SEC Urine Color YELLOW Urine Turbidity CLEAR Urine pH 5.5 Urine Specific [place] 1.016 Urine Protein TRACE mg/dL Urine Glucose (UA) 300 mg/dL Urine Ketones NEG mg/dL Urine Occult Blood NEG Urine Nitrite NEG Urine Bilirubin NEG Urine Urobilinogen 2.0 MG/DL Urine Leukocyte Esterase NEG Urine RBC LESS THAN 1 /hpf Urine WBC 1 /hpf Urine Transitional Epithelial Cells <1 /hpf Urine Hyaline Casts 16 /lpf Urine Mucus FEW /lpf Microscopic Urinalysis Comment CULT NOT INDICATED Blood Urea Nitrogen 56 MG/DL Creatinine 1.84 MG/DL Random Glucose 97 MG/DL Total Protein 7.0 GM/DL Albumin 2.5 GM/DL Calcium Level 8.8 MG/DL Magnesium Level 2.2 MG/DL Alkaline Phosphatase 346 U/L Aspartate Amino Transf (AST/SGOT) 84 U/L Alanine Aminotransferase (ALT/SGPT) 58 U/L Total Bilirubin 0.8 MG/DL Sodium Level 135 MEQ/L Potassium Level 5.0 MEQ/L Chloride Level 102 MEQ/L Carbon Dioxide Level 18.9 MEQ/L Anion Gap 14 MEQ/L Estimat Glomerular Filtration Rate 27 ML/MIN Total Creatine Kinase 50 U/L Troponin I 0.02 NG/ML MDM Medical Decision Making Medical Screen Exam Complete: Yes Emergency Medical Condition: Yes Medical Record Reviewed: Yes Interpretation(s) Laboratory Tests Test 11/24/17 10:10 Red Blood Count 3.55 MIL/MM3 (4.00-5.30) Hematocrit 34.3 % (35.0-46.0) Red Cell Distribution Width 18.0 % (11.6-17.2) Neutrophils (%) (Auto) 83.5 % (16.0-70.0) Lymphocytes # (Auto) 0.7 TH/MM3 (1.0-4.8) Activated Partial Thromboplast Time 21.1 SEC (24.3-30.1) Urine Glucose (UA) 300 mg/dL (NEG) Urine Mucus FEW /lpf (OCC) Blood Urea Nitrogen 56 MG/DL (7-18) Creatinine 1.84 MG/DL (0.50-1.00) Albumin 2.5 GM/DL (3.4-5.0) Alkaline Phosphatase 346 U/L (45-117) Aspartate Amino Transf (AST/SGOT) 84 U/L (15-37) Alanine Aminotransferase (ALT/SGPT) 58 U/L (10-53) Sodium Level 135 MEQ/L (136-145) Carbon Dioxide Level 18.9 MEQ/L (21.0-32.0) Estimat Glomerular Filtration Rate 27 ML/MIN (>89) Differential Diagnosis Dehydration versus metabolic issues versus sepsis Narrative Course Lab work shows significant elevation in BUN and creatinine concerning for underlying dehydration. IV fluids were ordered for the patient. At this point , considering she has been having ongoing problems with nausea and vomiting and now is having hypoglycemic episodes because of it, my plan would be to admit her as an observation for further follow-up of glucose levels and IV fluids. Case was discussed with Dr. Baker for admission. Diagnosis Primary Impression: Intractable nausea and vomiting Additional Impressions: Dehydration Hypoglycemia Admitting Information Admitting Physician Requests: Admit Renita Yarbrough MD Nov 24, 2017 09:55
[2017-11-24] MEDS ORDERED: SODIUM CHLORIDE 0.9% FLUSH 10 ML FLUSH IVF PRN (10:00)
--- NOTE | 2017-11-24 10:17 | RADRPT ---
EXAM DATE/TIME: 11/24/2017 09:55 [facility] COMPARISON: CHEST SINGLE AP, November 14, 2017, 12:01. INDICATIONS : Palpitations MEDICAL HISTORY : Hypothyroidism. Hypercholesterolemia. Hypertension. auto immune hepatitis, diabetes, Cirrhosis, a scites SURGICAL HISTORY : liver biopsy, many paracetesis ENCOUNTER: Initial ACUITY: 1 day PAIN SCORE: 0/10 LOCATION: Bilateral chest FINDINGS: A single view of the chest demonstrates the lungs to be symmetrically aerated without evidence of mas s, infiltrate or effusion. The cardiomediastinal contours are unremarkable. Osseous structures are intact. CONCLUSION: No acute disease. Dejan Trejo MD on November 24, 2017 at 10:15 Board Certified Radiologist. This report was verified electronically.
[2017-11-24 10:42] LABS: AUTOMATED NEUTROPHIL # 5.8 TH/MM3 (1.8-7.7); BASOPHIL % 0.1 % (0.0-2.0); EOSINOPHIL % 0.1 % (0.0-4.0); HEMATOCRIT 34.3 % (35.0-46.0); HEMOGLOBIN 11.6 GM/DL (11.6-15.3); LYMPH % 9.5 % (9.0-44.0); LYMPHOCYTE # 0.7 TH/MM3 (1.0-4.8); MEAN CELL VOLUME 96.8 FL (80.0-100.0); MEAN CORPUSCULAR HEMOGLOBIN 32.8 PG (27.0-34.0); MEAN CORPUSCULAR HGB CONC 33.9 % (32.0-36.0); MEAN PLATELET VOLUME 8.5 FL (7.0-11.0); MONO % 6.8 % (0.0-8.0); MONOCYTE # 0.5 TH/MM3 (0-0.9); NEUT % 83.5 % (16.0-70.0); PLATELET COUNT 200 TH/MM3 (150-450); RED BLOOD COUNT 3.55 MIL/MM3 (4.00-5.30); WHITE BLOOD COUNT 6.9 TH/MM3 (4.0-11.0)
[2017-11-24 10:51] LABS: BILIRUBIN, URINE NEG (NEG); BLOOD, URINE NEG (NEG); GLUCOSE,URINE 300 mg/dL (NEG); HYALINE CAST, URINE 16 /lpf (RARE); KETONE, URINE NEG (NEG); MUCUS URINE FEW /lpf (OCC); NITRITE,URINE NEG (NEG); PH, URINE 5.5 (5.0-8.5); TRANSITIONAL EPI CELLS, URINE <1 /hpf; URINE COLOR YELLOW (YELLW/STRAW); URINE LEUKOCYTE ESTERASE NEG (NEG)
[2017-11-24 10:55] LABS: INTERNATIONAL NORMALIZED RATIO 1.1 RATIO; PROTHROMBIN TIME - PATIENT 10.8 SEC (9.8-11.6)
[2017-11-24 11:09] LABS: ALBUMIN 2.5 GM/DL (3.4-5.0); ALKALINE PHOSPHATASE 346 U/L (45-117); ALT (GPT) 58 U/L (10-53); AST (GOT) 84 U/L (15-37); BICARBONATE 18.9 MEQ/L (21.0-32.0); BLOOD UREA NITROGEN 56 MG/DL (7-18); CALCIUM 8.8 MG/DL (8.5-10.1); CHLORIDE 102 MEQ/L (98-107); CREATININE 1.84 MG/DL (0.50-1.00); GLOMERULAR FILTRATION RATE 27 ML/MIN (>89); GLUCOSE,RANDOM 97 MG/DL (74-106); MAGNESIUM 2.2 MG/DL (1.5-2.5); SODIUM (NA) 135 MEQ/L (136-145); TOTAL BILIRUBIN ADULT 0.8 MG/DL (0.2-1.0); TROPONIN I 0.02 NG/ML (0.02-0.05)
[2017-11-24] MEDS ORDERED: SODIUM CHLORID 0.9% 500 ML INJ 500 ML IV ONE ×2 (11:45→13:45)
[2017-11-24 12:29] VITALS: BP 151/74; PULSE 77; RESP 16; TEMP 98.8; O2SAT 100
--- NOTE | 2017-11-24 12:51 | HHI.HP ---
[facility] Luis Clark DO Admission Diagnosis Hypoglycemia/dehydration Diagnoses: (1) Hypoglycemia Diagnosis: Principal (2) Dehydration Diagnosis: Principal Chief Complaint: intractable nause and vomiting. Travel History International Travel<30 Days: No Contact w/Intl Traveler <30 Da: No Traveled to Known Affected Are: No History of Present Illness This is a 67-year-old female with a PMH of HTN, Hyperlipidemia, Autoimmune Hepatitis, Cirrhosis, Ascites, Anxiety, Depression, CKD who presented to ER with nausea and vomiting. she was admitted to this hospital recently and underwent GI w/u including EGD and thoracentesis and then was discharged home. she says that she's been having nausea and emesis over the past few days. she says that she hasn't been able to keep the food down. she denies any abdominal pain or change in BM. she denies any fever. she says that ' her blood sugar was low this morning'. Review of Systems Constitutional: DENIES: Fever, Weight loss, Chills, Night Sweats Eyes: DENIES: Blurred vision, Diplopia, Vision loss, Double Vision Ears, nose, mouth, throat: DENIES: Tinnitus, Vertigo, Throat pain, Epistaxis Respiratory: DENIES: Apneas, Cough, Snoring, Wheezing, Hemoptysis, Sputum production, Shortness of breath Cardiovascular: DENIES: Chest pain, Palpitations, Syncope, Dyspnea on Exertion , PND, Lower Extremity Edema, Orthopnea, Claudication Gastrointestinal: COMPLAINS OF: Nausea, Vomiting, DENIES: Abdominal pain, Black stools, Bloody stools, Constipation, Diarrhea, Difficulty Swallowing, Anorexia Genitourinary: DENIES: Urinary frequency, Urgency, Hematuria, Dysuria Musculoskeletal: DENIES: Joint pain, Muscle aches, Stiffness, Joint Swelling Integumentary: DENIES: Rash Neurologic: DENIES: Abnormal gait, Headache, Localized weakness, Paresthesias, Seizures, Speech Problems, Tremor, Poor Balance Psychiatric: DENIES: Anxiety, Confusion, Mood changes, Depression, Hallucinations, Agitation, Suicidal Ideation, Homicidal Ideation, Delusions Past Family Social History Past Medical History HTN, Hyperlipidemia, Autoimmune Hepatitis, Cirrhosis, Recurrent Ascites, Anxiety, Depression, CKD Past Surgical History hysterectomy. Reported Medications Macrobid (Nitrofurantoin Monoh/Nitrofur Macro) 100 Mg Cap 100 Mg PO BID 5 Days Levemir Inj (Insulin Detemir) 1,000 unit/ 10 ML Vial 10 Units SQ HS Do not mix with any other Insulin. GIVE ONE DOSE AT BED TIME, AND TITRATE NEEDED. Pantoprazole (Pantoprazole Sodium) 40 Mg Tab 40 Mg PO DAILY Oxycodone (Oxycodone HCl) 5 Mg Tab 5 Mg PO Q4H PRN DO NOT USE THIS MEDICINE IF YOU WILL DRIVE A CAR OR USE A MACHINE, ONLY USE IT WHEN RESTING AT HOME. Norvasc (Amlodipine Besylate) 5 Mg Tab 2.5 Mg PO DAILY Zofran Odt (Ondansetron Odt) 8 Mg Tab 8 Mg SL Q8H PRN [Lactulose Liq] 30 ML Syrp 30 Ml PO QID Spironolactone 25 Mg Tab 25 Mg PO DAILY Prednisone 10 Mg Tab 10 Mg PO DAILY 30 Days Clonidine (Clonidine HCl) 0.1 Mg Tab 0.1 Mg PO BID Zoloft (Sertraline HCl) 50 Mg Tab 50 Mg PO DAILY Reported Xalatan Opth Drops (Latanoprost) 0.005% Drops 1 Drop EACH EYE HS Levothyroxine (Levothyroxine Sodium) 88 Mcg Tab 88 Mcg PO DAILY Novolog Inj (Insulin Aspart) 1,000 Unit/10 Ml Vial 0 SQ DIRECTED Sliding Scale as directed. C-500 (Ascorbic Acid) 500 Mg Tab.chew 500 Mg PO DAILY Vitamin D3 (Cholecalciferol) 1,000 Unit Tab 1,000 Units PO DAILY Mercaptopurine 50 Mg Tab 50 Mg PO DAILY Allergies: Coded Allergies: doxycycline (Verified Allergy, Severe, Rash, 11/17/17) minocycline (Verified Allergy, Severe, Rash, 11/17/17) morphine (Verified Allergy, Severe, Rash, 11/17/17) penicillin G (Verified Allergy, Severe, Rash, 11/17/17) tigecycline (Verified Allergy, Severe, Rash, 11/17/17) Sulfa (Sulfonamide Antibiotics) (Verified Allergy, Unknown, Rash, 11/17/17) clindamycin (Verified Allergy, Unknown, Nausea/Vomiting, 11/17/17) Active Ordered Medications Inpatient Medications Sodium Chloride 500 ml @ 500 mls/hr BOLUS ONCE IV Last administered on at 11:59; Start 11/24/17 at 11:45; Stop 11/24/17 at 12:44 Sodium Chloride (NS Flush) 2 ml UNSCH PRN IVF FLUSH AFTER USING IV ACCESS; Start 11/24/17 at 10:00 Social History no smoking or drinking. Physical Exam Vital Signs Vital Signs Date Time Temp Pulse Resp B/P (MAP) Pulse Ox O2 Delivery O2 Flow Rate FiO2 11/24/17 12:29 98.8 77 16 151/74 (99) 100 Room Air 11/24/17 09:55 20 98 Room Air 11/24/17 09:42 98.2 89 18 140/79 (99) 98 Physical Exam GENERAL: This is a well-nourished, well-developed patient, in no apparent distress. SKIN: No rashes, ecchymoses or lesions. Cool and dry. HEAD: Atraumatic. Normocephalic. No temporal or scalp tenderness. EYES: Pupils equal round and reactive. Extraocular motions intact. No scleral icterus. No injection or drainage. ENT: Nose without bleeding, purulent drainage or septal hematoma. Throat without erythema, tonsillar hypertrophy or exudate. Uvula midline. Airway patent. NECK: Trachea midline. No JVD or lymphadenopathy. Supple, nontender, no meningeal signs. CARDIOVASCULAR: Regular rate and rhythm without murmurs, gallops, or rubs. RESPIRATORY: Clear to auscultation. Breath sounds equal bilaterally. No wheezes , rales, or rhonchi. GASTROINTESTINAL: Abdomen soft, non-tender, nondistended. No hepato-splenomegaly , or palpable masses. No guarding. MUSCULOSKELETAL: Extremities without clubbing, cyanosis, or edema. No joint tenderness, effusion, or edema noted. No calf tenderness. Negative Homans sign bilaterally. NEUROLOGICAL: Awake and alert. Cranial nerves II through XII intact. Motor and sensory grossly within normal limits. Five out of 5 muscle strength in all muscle groups. Normal speech. Laboratory Laboratory Tests Test 11/24/17 10:10 White Blood Count 6.9 Red Blood Count 3.55 Hemoglobin 11.6 Hematocrit 34.3 Mean Corpuscular Volume 96.8 Mean Corpuscular Hemoglobin 32.8 Mean Corpuscular Hemoglobin Concent 33.9 Red Cell Distribution Width 18.0 Platelet Count 200 Mean Platelet Volume 8.5 Neutrophils (%) (Auto) 83.5 Lymphocytes (%) (Auto) 9.5 Monocytes (%) (Auto) 6.8 Eosinophils (%) (Auto) 0.1 Basophils (%) (Auto) 0.1 Neutrophils # (Auto) 5.8 Lymphocytes # (Auto) 0.7 Monocytes # (Auto) 0.5 Eosinophils # (Auto) 0.0 Basophils # (Auto) 0.0 CBC Comment DIFF FINAL Differential Comment Prothrombin Time 10.8 Prothromb Time International Ratio 1.1 Activated Partial Thromboplast Time 21.1 Urine Color YELLOW Urine Turbidity CLEAR Urine pH 5.5 Urine Specific [place]ona 1.016 Urine Protein TRACE Urine Glucose (UA) 300 Urine Ketones NEG Urine Occult Blood NEG Urine Nitrite NEG Urine Bilirubin NEG Urine Urobilinogen 2.0 Urine Leukocyte Esterase NEG Urine RBC LESS THAN 1 Urine WBC 1 Urine Transitional Epithelial Cells <1 Urine Hyaline Casts 16 Urine Mucus FEW Microscopic Urinalysis Comment CULT NOT INDICATED Blood Urea Nitrogen 56 Creatinine 1.84 Random Glucose 97 Total Protein 7.0 Albumin 2.5 Calcium Level 8.8 Magnesium Level 2.2 Alkaline Phosphatase 346 Aspartate Amino Transf (AST/SGOT) 84 Alanine Aminotransferase (ALT/SGPT) 58 Total Bilirubin 0.8 Sodium Level 135 Potassium Level 5.0 Chloride Level 102 Carbon Dioxide Level 18.9 Anion Gap 14 Estimat Glomerular Filtration Rate 27 Total Creatine Kinase 50 Troponin I 0.02 Result Diagram: 11/24/17 1010 11/24/17 1010 Imaging Last Impressions Chest X-Ray 11/24/17 0947 Signed Impressions: Service Date/Time: Friday, November 24, 2017 09:55 - CONCLUSION: No acute disease. Dejan Trejo MD Caprini VTE Risk Assessment Caprini VTE Risk Assessment: Mod/High Risk (score >= 2) Caprini Risk Assessment Model Point Value = 1 Point Value = 2 Point Value = 3 Point Value = 5 Age 41-60 Minor surgery BMI > 25 kg/m2 Swollen legs Varicose veins or History of unexplained or recurrent spontaneous Oral contraceptives or hormone replacement Sepsis (< 1 month) Serious lung disease, including pneumonia (< 1 month) Abnormal pulmonary function Acute myocardial infarction Congestive heart failure (< 1 month) History of inflammatory bowel disease Medical patient at bed rest Age 61-74 Arthroscopic surgery Major open surgery (> 45 min) Laparoscopic surgery (> 45 min) Malignancy Confined to bed (> 72 hours) Immobilizing plaster cast Central venous access Age >= 75 History of VTE Family history of VTE Factor V Leiden Prothrombin [id number] Lupus anticoagulant Anticardiolipin antibodies Elevated serum homocysteine Heparin-induced thrombocytopenia Other congenital or acquired thrombophilia Stroke (< 1 month) Elective arthroplasty Hip, pelvis, or leg fracture Acute spinal cord injury (< 1 month) Prophylaxis Regimen Total Risk Factor Score Risk Level Prophylaxis Regimen 0-1 Low Early ambulation 2 Moderate Order ONE of the following: *Sequential Compression Device (SCD) *Heparin 5000 units SQ BID 3-4 Higher Order ONE of the following medications: *Heparin 5000 units SQ TID *Enoxaparin/Lovenox 40 mg SQ daily (WT < 150 kg, CrCl > 30 mL/min) *Enoxaparin/Lovenox 30 mg SQ daily (WT < 150 kg, CrCl > 10-29 mL/min) *Enoxaparin/Lovenox 30 mg SQ BID (WT < 150 kg, CrCl > 30 mL/min) AND/OR *Sequential Compression Device (SCD) 5 or more Highest Order ONE of the following medications: *Heparin 5000 units SQ TID (Preferred with Epidurals) *Enoxaparin/Lovenox 40 mg SQ daily (WT < 150 kg, CrCl > 30 mL/min) *Enoxaparin/Lovenox 30 mg SQ daily (WT < 150 kg, CrCl > 10-29 mL/min) *Enoxaparin/Lovenox 30 mg SQ BID (WT < 150 kg, CrCl > 30 mL/min) AND *Sequential Compression Device (SCD) Assessment and Plan Assessment and Plan A/P - intractable nausea/vomiting/ dehydration received IV fluid fluid in ER- will start on diet and monitor- continue with supportive care with IV fluid and antiemetics as needed. of note had EGD last month with Grade 1 esophageal varix 1/Food residue suggestive of gastroparesis and Abnormal antral mucosa of unclear significance possible gastritis. will consider GI evaluation if no improvement ( being followed up by ). -reported hypoglycemic episode with history of diabetes mellitus- hold hypoglycemic agents- monitor accu-check for now- no coverge. -autoimmune hepatitis/ cirrhosis; continue lactulose and prednisone- hold Aldactone for now due to renal insufficiency -hypertension;resume norvasc and clonidine- -CKD; hold Aldactone for now- will monitor renal function; BMP tomorrow. -DVT prophylaxis with SCD's Discussed Condition With ER physician and the patient. Shivam Cortes MD Nov 24, 2017 12:51
[2017-11-24] MEDS: LACTULOSE SYRUP 20 GM/30 ML CUP PO SCH ×3 (14:39→22:02)
[2017-11-24] MEDS ORDERED: DEXTROSE 50% IN WATER 50 ML VIAL(D50) IV PUSH PRN (17:45)
[2017-11-24] MEDS ORDERED: GLUCAGON 1 MG/ML VIAL OTHER PRN (17:45)
[2017-11-24] MEDS: INSULIN ASPART SUPPLEMENTAL SCALE SQ SCH ×2 (18:53→22:02)
[2017-11-24 20:33] VITALS: BP 100/56; PULSE 81; RESP 18; TEMP 97.8; O2SAT 99
[2017-11-24] MEDS: cloNIDine HCL 0.1 MG TAB PO SCH (22:01)
[2017-11-24] MEDS: LATANOPROST 0.005% OPHT SOLN 2.5 ML BTL EACH EYE SCH (22:02)
[2017-11-25 01:45] VITALS: BP 101/60; PULSE 79; RESP 15; TEMP 98.1; O2SAT 99
[2017-11-25] MEDS: LEVOTHYROXINE SODIUM 88 MCG TAB PO SCH (05:27)
[2017-11-25 07:35] LABS: BICARBONATE 17.7 MEQ/L (21.0-32.0); CALCIUM 8.6 MG/DL (8.5-10.1); CREATININE 1.64 MG/DL (0.50-1.00)
[2017-11-25 07:47] VITALS: BP 122/62; PULSE 83; RESP 18; TEMP 98.2; O2SAT 98
[2017-11-25] MEDS: PANTOPRAZOLE SOD 40 MG DELAYED RELEASE TAB PO SCH (08:59)
[2017-11-25] MEDS: SERTRALINE HCL 50 MG TAB PO SCH (09:00)
[2017-11-25] MEDS: amLODIPine BESYLATE 5 MG TAB PO SCH (09:00)
[2017-11-25] MEDS: cloNIDine HCL 0.1 MG TAB PO SCH ×2 (09:00→21:46)
[2017-11-25] MEDS: predniSONE 10 MG TAB PO SCH (09:00)
[2017-11-25] MEDS: LACTULOSE SYRUP 20 GM/30 ML CUP PO SCH ×4 (09:00→21:45)
[2017-11-25] MEDS: INSULIN ASPART SUPPLEMENTAL SCALE SQ SCH ×4 (09:01→21:50)
[2017-11-25] MEDS: MERCAPTOPURINE 50 MG TAB PO SCH (09:50)
--- NOTE | 2017-11-25 10:43 | HHI.PR ---
Subjective Remarks in no acute distress. says that she's feeling weak. complaining of dysphagia. nausea is better today. Objective Vitals Vital Signs Date Time Temp Pulse Resp B/P (MAP) Pulse Ox O2 Delivery O2 Flow Rate FiO2 11/25/17 07:47 98.2 83 18 122/62 (82) 98 11/25/17 01:45 98.1 79 15 101/60 (74) 99 11/24/17 20:33 97.8 81 18 100/56 (71) 99 11/24/17 19:28 11/24/17 12:29 98.8 77 16 151/74 (99) 100 Room Air I/O 11/24/17 11/24/17 11/24/17 11/25/17 11/25/17 11/25/17 07:00 15:00 23:00 07:00 15:00 23:00 Intake Total 240 ml Balance 240 ml Intake Oral 240 ml # Voids 3 # Bowel Movements 4 Result Diagram: 11/24/17 1010 11/25/17 0555 Imaging Last Impressions Chest X-Ray 11/24/17 0947 Signed Impressions: Service Date/Time: Friday, November 24, 2017 09:55 - CONCLUSION: No acute disease. Dejan Trejo MD Objective Remarks GENERAL: This is a well-nourished, well-developed patient, in no apparent distress. CARDIOVASCULAR: Regular rate and regular rhythm without murmurs, gallops, or rubs. RESPIRATORY: Clear to auscultation. Breath sounds equal bilaterally. No wheezes , rales, or rhonchi. GASTROINTESTINAL: Abdomen soft, non-tender, mildly distended. Normal, active bowel sounds MUSCULOSKELETAL: Extremities without clubbing, cyanosis, or edema. NEURO: Alert & Oriented x4 to person, place, time, situation. Moves all ext x4 Medications and IVs Inpatient Medications Amlodipine Besylate (Norvasc) 2.5 mg DAILY PO Last administered on 11/25/17at 09 :00; Start 11/25/17 at 09:00 Clonidine (Catapres) 0.1 mg BID PO Last administered on 11/24/17at 22:01; Start 11/24/17 at 21:00 Dextrose (D50w (Vial) Inj) 50 ml UNSCH PRN IV PUSH HYPOGLYCEMIA-SEE COMMENTS; Start 11/24/17 at 17:45 Glucagon (Glucagon Inj) 1 mg UNSCH PRN OTHER HYPOGLYCEMIA-SEE COMMENTS; Start 11/24/17 at 17:45 Insulin Aspart (NovoLOG SUPPLEMENTAL SCALE) 1 ACHS SLIDING SCALE SQ Last administered on 11/25/17at 09:01; Start 11/24/17 at 18:45 Lactulose (Lactulose Liq) 30 ml QID PO Last administered on 11/25/17 09:00; Start 11/24/17 at 13:45 Latanoprost (Xalatan 0.005% Opt Soln) 1 drop HS EACH EYE Last administered on 11/24/17 22:02; Start 11/24/17 at 21:00 Levothyroxine Sodium (Synthroid) 88 mcg DAILY@0600 PO Last administered on 11/25 05:27; Start 11/25/17 at 06:00 Mercaptopurine (Purinethol) 50 mg DAILY PO Last administered on 11/25/17at 09:50 ; Start 11/25/17 at 09:00 Ondansetron HCl (Zofran Inj) 4 mg Q8HR PRN IV PUSH NAUSEA; Start 11/24/17 at 12 :45 Oxycodone HCl (Roxicodone) 5 mg Q6H PRN PO PAIN 6-10; Start 11/24/17 at 13:45 Pantoprazole Sodium (Protonix) 40 mg DAILY PO Last administered on 11/25/17 08 :59; Start 11/25/17 at 09:00 Prednisone (Deltasone) 10 mg DAILY PO Last administered on 11/25/17 09:00; Start 11/25/17 at 09:00 Sertraline HCl (Zoloft) 50 mg DAILY PO Last administered on 11/25/17 09:00; Start 11/25/17 at 09:00 Sodium Chloride 500 ml @ 50 mls/hr Q10H ONCE IV Last administered on at 14:39; Start 11/24/17 at 13:45; Stop 11/24/17 at 23:44; Status DC Sodium Chloride (NS Flush) 2 ml UNSCH PRN IVF FLUSH AFTER USING IV ACCESS; Start 11/24/17 at 10:00 A/P Problem List: (1) Hypoglycemia ICD Code: E16.2 - Hypoglycemia, unspecified (2) Dehydration ICD Code: E86.0 - Dehydration Assessment and Plan - intractable nausea/vomiting/ dehydration- overall better. received IV fluid fluid in ER- will start on diet and monitor- continue with supportive care with IV fluid and antiemetics as needed. of note had EGD last month with Grade 1 esophageal varix 1/Food residue suggestive of gastroparesis and Abnormal antral mucosa of unclear significance possible gastritis. - dysphagia; will consult GI -reported hypoglycemic episode with history of diabetes mellitus- has resolved- will resume long-acting insulin. monitor accu-check with SSI. -autoimmune hepatitis/ cirrhosis; continue lactulose and prednisone- hold Aldactone for now due to renal insufficiency -hypertension;resumed norvasc and clonidine- -CKD; hold Aldactone for now- will monitor renal function. -DVT prophylaxis with SCD's Discharge Planning discharge within the next 24 hrs- pending GI and PT evaluation. Shivam Cortes MD Nov 25, 2017 10:43
[2017-11-25 11:43] VITALS: BP 113/67; PULSE 88; RESP 18; TEMP 98.1; O2SAT 99
--- NOTE | 2017-11-25 12:12 | PD.CONS ---
HPI History of Present Illness This is a 67 year old female with autoimmune hepatitis, cirrhosis, ascites who presented with vomiting. She admits difficulty swallowing for the last month. If she eats too much it feels like it gets stuck and then she vomits. She has this difficulty with solids and sometimes liquids. She does not feel she is more distended than when she was discharged. Denies painful swallowing. No blood or nausea, just regurgitation of food. No fevers. She is known to us from previous admission. Had EGD 11/03/17 foudn 1 esophageal varix, food residue suggestive of gastroparesis, bx revealed severe acute suppurative non specific gastritis. (Amelia Greene) PFSH Past Medical History HTN, Hyperlipidemia, Autoimmune Hepatitis, Cirrhosis, Recurrent Ascites, Anxiety, Depression, CKD Past Surgical History hysterectomy. (Amelia Greene) Coded Allergies: doxycycline (Verified Allergy, Severe, Rash, 11/17/17) minocycline (Verified Allergy, Severe, Rash, 11/17/17) morphine (Verified Allergy, Severe, Rash, 11/17/17) penicillin G (Verified Allergy, Severe, Rash, 11/17/17) tigecycline (Verified Allergy, Severe, Rash, 11/17/17) Sulfa (Sulfonamide Antibiotics) (Verified Allergy, Unknown, Rash, 11/17/17) clindamycin (Verified Allergy, Unknown, Nausea/Vomiting, 11/17/17) Family History lung ca - father Social History no smoking or drinking. (Amelia Greene) Review of Systems Constitutional: DENIES: Fever Endocrine: DENIES: Polydipsia Eyes: DENIES: Blurred vision Ears, nose, mouth, throat: DENIES: Hearing loss Respiratory: DENIES: Cough Cardiovascular: DENIES: Chest pain Gastrointestinal: COMPLAINS OF: Diarrhea, Vomiting, Difficulty Swallowing, DENIES: Abdominal pain, Black stools, Bloody stools, Nausea, Hematemesis Genitourinary: DENIES: Hematuria Musculoskeletal: DENIES: Muscle aches Integumentary: DENIES: Abnormal pigmentation Hematologic/lymphatic: DENIES: Bruising Immunologic/allergic: DENIES: Eczema Neurologic: DENIES: Headache Psychiatric: DENIES: Confusion (Amelia Greene) GI Exam Vitals I&O Vital Signs Date Time Temp Pulse Resp B/P (MAP) Pulse Ox O2 Delivery O2 Flow Rate FiO2 11/25/17 11:43 98.1 88 18 113/67 (82) 99 11/25/17 07:47 98.2 83 18 122/62 (82) 98 11/25/17 01:45 98.1 79 15 101/60 (74) 99 11/24/17 20:33 97.8 81 18 100/56 (71) 99 11/24/17 19:28 11/24/17 12:29 98.8 77 16 151/74 (99) 100 Room Air I/O 11/24/17 11/24/17 11/24/17 11/25/17 11/25/17 11/25/17 07:00 15:00 23:00 07:00 15:00 23:00 Intake Total 240 ml Balance 240 ml Intake Oral 240 ml # Voids 3 # Bowel Movements 4 Imaging Last Impressions Chest X-Ray 11/24/17 0963 Signed Impressions: Service Date/Time: Friday, November 24, 2017 09:55 - CONCLUSION: No acute disease. Dejan Trejo MD Laboratory Test 11/25/17 05:55 Blood Urea Nitrogen 58 MG/DL Creatinine 1.64 MG/DL Random Glucose 225 MG/DL Calcium Level 8.6 MG/DL Sodium Level 137 MEQ/L Potassium Level 4.5 MEQ/L Chloride Level 106 MEQ/L Carbon Dioxide Level 17.7 MEQ/L Anion Gap 13 MEQ/L Estimat Glomerular Filtration Rate 31 ML/MIN Physical Examination HEENT: PERRL; normocephalic; atraumatic; no jaundice. CHEST: CTA CARDIAC: RRR ABDOMEN: Soft, distended, nontender; no hepatosplenomegaly; bowel sounds are present in all four quadrants. EXTREMITIES: No clubbing, cyanosis, or edema. SKIN: Normal; no rash; no jaundice. SOLE RUFFER: No focal deficits; alert and oriented times three. (Amelia Greene [facility]) Assessment and Plan Plan ASSESSMENT - vomiting, dysphagia - for last month has bolus sensation and regurgitation or vomiting of food. Mostly with solids but at times with liquids. Had EGD 11/03/17 foudn 1 esophageal varix, food residue suggestive of gastroparesis, bx revealed severe acute suppurative non specific gastritis. had normal GES 04/2017. - autoimmune hepatitis, cirrhosis, ascites PLAN - EGD tomorrow - obtain consent - NPO after MN - full liquids - ba swallow - further recs to follow pt seen by myself and Dr Perea and this note is on her behalf (Amelia Greene) Physician Comments seen, examined agree with above had gastric emptying study last year -normal we will review her chart from office (Jacklyn Perea MD) Amelia Greene Nov 25, 2017 12:12 Jacklyn Perea MD Nov 25, 2017 18:09
--- NOTE | 2017-11-25 13:19 | RADRPT ---
EXAM DATE/TIME: 11/25/2017 12:51 [facility] COMPARISON: No previous studies available for comparison. INDICATIONS : Vomiting. FLUORO TIME: 1.3 minutes IMAGE COUNT: 11 CONTRAST: 1. Liquid E-Z Paque Barium Sulfate (60% w/v, 41% w.w) MEDICAL HISTORY : Hypertension. Gastroesophageal reflux disease. Cirrhosis. Colitis. Diabetes. Renal failure. BBB. SURGICAL HISTORY : Hysterectomy. ENCOUNTER: Initial ACUITY: 1 month PAIN SCORE: 0/10 LOCATION: Esophagus. FINDINGS: Limited barium swallow performed in the prone oblique position shows no aspiration and marked presbye sophagus without obstructing mass. Exam is limited by patient's condition. CONCLUSION: No obstructing mass. Marked presbyesophagus. Marco Chaudhari MD FACR on November 25, 2017 at 13:16 Board Certified Radiologist. This report was verified electronically.
[2017-11-25 15:48] VITALS: BP 112/65; PULSE 95; RESP 18; TEMP 98.5; O2SAT 98
[2017-11-25] MEDS ORDERED: SODIUM CHLORID 0.9% 500 ML IV PRN (18:45)
[2017-11-25] MEDS ORDERED: METOPROLOL TARTRATE 25 MG TAB PO PRN (18:45)
[2017-11-25] MEDS ORDERED: POVIDONE IODINE 5% (ANTISEPSIS KIT) 4 APPLICATIONS EACH NARE PRN (18:45)
[2017-11-25] MEDS ORDERED: CHLORHEXIDINE GLUCONATE 2 % 1 PACK (2 CLOTHS) TOPICAL PRN (18:45)
[2017-11-25] MEDS ORDERED: LACTATED RINGER'S 1000 ML IV PRN (18:45)
[2017-11-25 21:20] VITALS: BP 88/54; PULSE 93; RESP 16; TEMP 98.6; O2SAT 97
[2017-11-25] MEDS: INSULIN DETEMIR 100 UNITS/ML VIAL SQ SCH (21:45)
[2017-11-25] MEDS: LATANOPROST 0.005% OPHT SOLN 2.5 ML BTL EACH EYE SCH (21:47)
--- NOTE | 2017-11-25 23:19 | EKG ---
Date Performed: 11/24/2017 Time Performed: 09:56:54 PTAGE: 67 years EKG: Sinus rhythm INFERIOR MYOCARDIAL INFARCTION ANTEROLATERAL MYOCARDIAL INFARCTION ABNORMAL ECG Since the PREVIOUS TRACING , no significant change noted DOCTOR: Anai Caro Interpretating Date/Time 11/25/2017 23:18:32
[2017-11-25 23:49] VITALS: BP 106/62; PULSE 82; RESP 16; TEMP 98.1; O2SAT 97
[2017-11-26 04:08] VITALS: BP 110/61; PULSE 74; RESP 16; TEMP 98.5; O2SAT 96
[2017-11-26] MEDS: LEVOTHYROXINE SODIUM 88 MCG TAB PO SCH (05:54)
[2017-11-26 07:40] VITALS: BP 105/66; PULSE 79; RESP 18; TEMP 98.1; O2SAT 97
[2017-11-26] MEDS: INSULIN ASPART SUPPLEMENTAL SCALE SQ SCH ×4 (08:00→21:00)
--- NOTE | 2017-11-26 09:11 | HHI.PR ---
Subjective Remarks in no acute distress. denies pain. no nausea or vomiting. awaiting EGD today. Objective Vitals Vital Signs Date Time Temp Pulse Resp B/P (MAP) Pulse Ox O2 Delivery O2 Flow Rate FiO2 11/26/17 07:40 98.1 79 18 105/66 (79) 97 11/26/17 04:08 98.5 74 16 110/61 (77) 96 11/25/17 23:49 98.1 82 16 106/62 (77) 97 11/25/17 21:20 98.6 93 16 88/54 (65) 97 11/25/17 15:48 98.5 95 18 112/65 (81) 98 11/25/17 11:43 98.1 88 18 113/67 (82) 99 I/O 11/25/17 11/25/17 11/25/17 11/26/17 11/26/17 11/26/17 07:00 15:00 23:00 07:00 15:00 23:00 Intake Total 240 ml Output Total 400 ml Balance 240 ml -400 ml Intake Oral 240 ml Output Urine Total 400 ml # Voids 3 # Bowel Movements 4 2 Result Diagram: 11/24/17 1010 11/25/17 0555 Imaging Last Impressions Barium Swallow X-Ray 11/25/17 0000 Signed Impressions: Service Date/Time: Saturday, November 25, 2017 12:51 - CONCLUSION: No obstructing mass. Marked presbyesophagus. Marco Chaudhari MD FACR Chest X-Ray 11/24/17 0947 Signed Impressions: Service Date/Time: Friday, November 24, 2017 09:55 - CONCLUSION: No acute disease. Dejan Trejo MD Objective Remarks GENERAL: This is a well-nourished, well-developed patient, in no apparent distress. CARDIOVASCULAR: Regular rate and regular rhythm without murmurs, gallops, or rubs. RESPIRATORY: Clear to auscultation. Breath sounds equal bilaterally. No wheezes , rales, or rhonchi. GASTROINTESTINAL: Abdomen soft, non-tender, mildly distended. Normal, active bowel sounds MUSCULOSKELETAL: Extremities without clubbing, cyanosis, or edema. NEURO: Alert & Oriented x4 to person, place, time, situation. Moves all ext x4 Medications and IVs Inpatient Medications Amlodipine Besylate (Norvasc) 2.5 mg DAILY PO Last administered on 11/25/17at 09 :00; Start 11/25/17 at 09:00 Chlorhexidine Gluconate (Chlorhexidine 2% Cloth) 3 pack AMBULATORY CARE COORDINATOR PRN TOPICAL SEE LABEL COMMENTS; Start 11/25/17 at 18:45; Stop 11/28/17 at 18:44 Clonidine (Catapres) 0.1 mg BID PO Last administered on 11/25/17at 21:46; Start 11/24/17 at 21:00 Dextrose (D50w (Vial) Inj) 50 ml UNSCH PRN IV PUSH HYPOGLYCEMIA-SEE COMMENTS; Start 11/24/17 at 17:45 Glucagon (Glucagon Inj) 1 mg UNSCH PRN OTHER HYPOGLYCEMIA-SEE COMMENTS; Start 11/24/17 at 17:45 Insulin Aspart (NovoLOG SUPPLEMENTAL SCALE) 1 ACHS SLIDING SCALE SQ Last administered on 11/25/17at 21:50; Start 11/24/17 at 18:45 Insulin Detemir (Levemir Inj) 10 units HS SQ Last administered on 11/25/17at 21: 45; Start 11/25/17 at 21:00 Lactated Ringer's 1,000 ml @ 30 mls/hr Q24H PRN IV SEE LABEL COMMENTS; Start at 18:45; Stop 11/28/17 at 18:44 Lactulose (Lactulose Liq) 30 ml QID PO Last administered on 11/25/17at 21:45; Start 11/24/17 at 13:45 Latanoprost (Xalatan 0.005% Opt Soln) 1 drop HS EACH EYE Last administered on 11/25/17at 21:47; Start 11/24/17 at 21:00 Levothyroxine Sodium (Synthroid) 88 mcg DAILY@0600 PO Last administered on 11/26at 05:54; Start 11/25/17 at 06:00 Mercaptopurine (Purinethol) 50 mg DAILY PO Last administered on 11/25/17at 09:50 ; Start 11/25/17 at 09:00 Metoprolol Tartrate (Lopressor) 25 mg AMBULATORY CARE COORDINATOR PRN PO SEE LABEL COMMENTS; Start 11/25/17 at 18:45; Stop 11/28/17 at 18:44 Ondansetron HCl (Zofran Inj) 4 mg Q8HR PRN IV PUSH NAUSEA; Start 11/24/17 at 12 :45 Oxycodone HCl (Roxicodone) 5 mg Q6H PRN PO PAIN 6-10; Start 11/24/17 at 13:45 Pantoprazole Sodium (Protonix) 40 mg DAILY PO Last administered on 11/25/17at 08 :59; Start 11/25/17 at 09:00 Povidone Iodine (Betadine 5% Antisepsis Kit) 1 applic AMBULATORY CARE COORDINATOR PRN EACH NARE SEE LABEL COMMENTS; Start 11/25/17 at 18:45; Stop 11/28/17 at 18:44 Prednisone (Deltasone) 10 mg DAILY PO Last administered on 11/25/17at 09:00; Start 11/25/17 at 09:00 Sertraline HCl (Zoloft) 50 mg DAILY PO Last administered on 11/25/17at 09:00; Start 11/25/17 at 09:00 Sodium Chloride 500 ml @ 30 mls/hr [id number] PRN IV SEE LABEL COMMENTS; Start at 18:45; Stop 11/28/17 at 18:44 Sodium Chloride (NS Flush) 2 ml UNSCH PRN IVF FLUSH AFTER USING IV ACCESS; Start 11/24/17 at 10:00 A/P Problem List: (1) Hypoglycemia ICD Code: E16.2 - Hypoglycemia, unspecified (2) Dehydration ICD Code: E86.0 - Dehydration Assessment and Plan - intractable nausea/vomiting/ dehydration- overall better. received IV fluid fluid in ER- will start on diet and monitor- continue with supportive care with IV fluid and antiemetics as needed. of note had EGD last month with Grade 1 esophageal varix 1/Food residue suggestive of gastroparesis and Abnormal antral mucosa of unclear significance possible gastritis. - dysphagia; GI consulted; plan for EGD today. -reported hypoglycemic episode with history of diabetes mellitus- has resolved- resumed long-acting insulin. monitor accu-check with SSI. -autoimmune hepatitis/ cirrhosis; continue lactulose and prednisone- hold Aldactone for now due to renal insufficiency -hypertension;resumed norvasc and clonidine- -CKD; hold Aldactone for now- will monitor renal function. -DVT prophylaxis with SCD's Discharge Planning discharge within the next 24 hrs- pending GI w/u and clearance. case management for dc planning; [facility]. Shivam Cortes MD Nov 26, 2017 09:11
--- NOTE | 2017-11-26 09:12 | HHI.FF ---
Face to Face Verification Diagnosis: (1) Nausea & vomiting Physical Therapy Order: Evaluate and Treat Home Health Nursing Order: Medical education Signs/symptoms of disease process I have seen patient Shaista Mooney on 11/26/17. My clinical findings support the need for the requested home health care services because: Ltd mobility - disease progression I certify that my clinical findings support that this patient is homebound because: Unsteady gait/balance Shivam Cortes MD Nov 26, 2017 09:12
[2017-11-26] MEDS: SERTRALINE HCL 50 MG TAB PO SCH (09:27)
[2017-11-26] MEDS: cloNIDine HCL 0.1 MG TAB PO SCH ×2 (09:27→22:44)
[2017-11-26] MEDS: LACTULOSE SYRUP 20 GM/30 ML CUP PO SCH ×5 (09:27→21:00)
[2017-11-26] MEDS: amLODIPine BESYLATE 5 MG TAB PO SCH (09:27)
[2017-11-26] MEDS: PANTOPRAZOLE SOD 40 MG DELAYED RELEASE TAB PO SCH (09:27)
[2017-11-26] MEDS: predniSONE 10 MG TAB PO SCH (09:27)
[2017-11-26] MEDS: MERCAPTOPURINE 50 MG TAB PO SCH (09:31)
[2017-11-26] MEDS: ONDANSETRON HCL 4 MG/2 ML VIAL IV PUSH PRN (10:47)
--- NOTE | 2017-11-26 12:58 | GIPROC ---
[facility] [address] [facility]. [facility], [address] EGD PROCEDURE REPORT EXAM DATE: 11/26/2017 PATIENT NAME: Shaista Mooney MR #: [id number] BIRTHDATE: 1950 ATTENDING: Jacklyn Perea MD ORDER #: [id number] LUMBER SORTER MACHINE: Jorge Snowden and Janis Brooks STATUS: inpatient INDICATIONS: The patient is a 67 yr old female here for an EGD due to nausea, vomiting , dysphagia PROCEDURE PERFORMED: EGD w/ biopsy MEDICATIONS: None and Per Anesthesia. TOPICAL ANESTHETIC: none CONSENT: The patient understands the risks and benefits of the procedure and understands that these risks include, but are not limited to: sedation, allergic reaction, infection, perforation and/or bleeding. Alternative means of evaluation and treatment include, among others: physical exam, x-rays, and/or surgical intervention. The patient elects to proceed with this endoscopic procedure. medical equipment was checked for proper function. Hand hygiene and appropriate measures for infection prevention was taken. After the risks, benefits and alternatives of the procedure were thoroughly explained, Informed consent was verified, confirmed and timeout was successfully executed by the treatment team. The patient was anesthetized with topical anesthesia and the Pentax [id number] endoscope was introduced through the mouth and advanced to the second portion of the duodenum. Retroflexed views revealed a hiatal hernia The gastroscope was then slowly withdrawn and removed. Portal gastropathy gastritis antrum-biopsy duodenum normal-biopsy white deposits r/o elvin-no biopsy or dilatation done due to presence of esophageal varices esophageal varices grade 1. ADVERSE EVENTS: There were no complications. IMPRESSIONS: 1. Portal gastropathy gastritis antrum-biopsy duodenum normal-biopsy white deposits r/o elvin-no biopsy or dilatation done due to presence of esophageal varices esophageal varices grade 1 2. Retroflexed views revealed a hiatal hernia RECOMMENDATIONS: 1. Await biopsy results. Biopsy results will not be ready for 7-10 days. If you don't hear from us in two weeks, call our office for biopsy results. 2. Anti-reflux regimen 3. Continue PPI 4. Nystatin trial of Bethanechol 10 mg po tid PATIENT CONDITION: stable DISPOSITION: Inpatient REPEAT EXAM: Return 6 months EGD Jacklyn Perea MD eSigned: Jacklyn Perea MD 11/26/2017 12:57 PM cc: PATIENT NAME: Shaista Mooney MR#: [id number]
[2017-11-26] MEDS: NYSTATIN SUSP 500,000 U/5 ML CUP SWISH-SWAL SCH ×3 (14:52→22:44)
[2017-11-26] MEDS: METOCLOPRAMIDE HCL 10 MG/2 ML VIAL IV PUSH SCH ×2 (14:52→22:44)
[2017-11-26 15:39] VITALS: BP 107/66; PULSE 76; RESP 18; TEMP 97.7; O2SAT 99
[2017-11-26] MEDS ORDERED: BETH10TA2 PO (17:26)
[2017-11-26] MEDS ORDERED: Nystatin Liq SWISH-SWAL (17:26)
[2017-11-26 19:55] VITALS: BP 101/54; PULSE 78; RESP 16; TEMP 97.9; O2SAT 99
[2017-11-26] MEDS: LATANOPROST 0.005% OPHT SOLN 2.5 ML BTL EACH EYE SCH (21:00)
[2017-11-26] MEDS: INSULIN DETEMIR 100 UNITS/ML VIAL SQ SCH (21:00)
[2017-11-27 01:31] VITALS: BP 110/66; PULSE 68; RESP 16; TEMP 98.1; O2SAT 96
[2017-11-27 04:19] VITALS: BP 101/54; PULSE 62; RESP 16; TEMP 98; O2SAT 97
[2017-11-27 08:08] VITALS: BP 116/60; PULSE 70; RESP 18; TEMP 97.9; O2SAT 98
--- NOTE | 2017-11-27 08:40 | HHI.PR ---
Subjective Remarks in no acute distress. overall doing better. no pain, nausea or vomiting. Objective Vitals Vital Signs Date Time Temp Pulse Resp B/P (MAP) Pulse Ox O2 Delivery O2 Flow Rate FiO2 11/27/17 08:08 97.9 70 18 116/60 (78) 98 11/27/17 04:19 98.0 62 16 101/54 (70) 97 11/27/17 01:31 98.1 68 16 110/66 (81) 96 11/26/17 19:55 97.9 78 16 101/54 (70) 99 11/26/17 15:39 97.7 76 18 107/66 (80) 99 11/26/17 13:12 95.9 65 18 106/64 (78) 98 I/O 11/26/17 11/26/17 11/26/17 11/27/17 11/27/17 11/27/17 07:00 15:00 23:00 07:00 15:00 23:00 Intake Total 100 ml 200 ml Balance 100 ml 200 ml Intake Oral 200 ml Other 100 ml # Voids 3 # Bowel Movements 2 Result Diagram: 11/24/17 1010 11/25/17 0555 Imaging Last Impressions Barium Swallow X-Ray 11/25/17 0000 Signed Impressions: Service Date/Time: Saturday, November 25, 2017 12:51 - CONCLUSION: No obstructing mass. Marked presbyesophagus. Marco Chaudhari MD FACR Chest X-Ray 11/24/17 0947 Signed Impressions: Service Date/Time: Friday, November 24, 2017 09:55 - CONCLUSION: No acute disease. Dejan Trejo MD Objective Remarks GENERAL: This is a well-nourished, well-developed patient, in no apparent distress. CARDIOVASCULAR: Regular rate and regular rhythm without murmurs, gallops, or rubs. RESPIRATORY: Clear to auscultation. Breath sounds equal bilaterally. No wheezes , rales, or rhonchi. GASTROINTESTINAL: Abdomen soft, non-tender, mildly distended. Normal, active bowel sounds MUSCULOSKELETAL: Extremities without clubbing, cyanosis, or edema. NEURO: Alert & Oriented x4 to person, place, time, situation. Moves all ext x4 Medications and IVs Inpatient Medications Amlodipine Besylate (Norvasc) 2.5 mg DAILY PO Last administered on 11/26/17at 09 :27; Start 11/25/17 at 09:00 Chlorhexidine Gluconate (Chlorhexidine 2% Cloth) 3 pack COMPETITIVE ATHLETE PRN TOPICAL SEE LABEL COMMENTS; Start 11/25/17 at 18:45; Stop 11/28/17 at 18:44 Clonidine (Catapres) 0.1 mg BID PO Last administered on 11/26/17at 22:44; Start 11/24/17 at 21:00 Dextrose (D50w (Vial) Inj) 50 ml UNSCH PRN IV PUSH HYPOGLYCEMIA-SEE COMMENTS; Start 11/24/17 at 17:45 Glucagon (Glucagon Inj) 1 mg UNSCH PRN OTHER HYPOGLYCEMIA-SEE COMMENTS; Start 11/24/17 at 17:45 Insulin Aspart (NovoLOG SUPPLEMENTAL SCALE) 1 ACHS SLIDING SCALE SQ Last administered on 11/26/17at 18:54; Start 11/24/17 at 18:45 Insulin Detemir (Levemir Inj) 10 units HS SQ Last administered on 11/25/17at 21: 45; Start 11/25/17 at 21:00 Lactated Ringer's 1,000 ml @ 30 mls/hr Q24H PRN IV SEE LABEL COMMENTS Last administered on 11/26/17at 11:21; Start 11/25/17 at 18:45; Stop 11/28/17 at 18:44 Lactulose (Lactulose Liq) 30 ml QID PO Last administered on 11/26/17at 21:00; Start 11/24/17 at 13:45 Latanoprost (Xalatan 0.005% Opt Soln) 1 drop HS EACH EYE Last administered on 11/26/17at 21:00; Start 11/24/17 at 21:00 Levothyroxine Sodium (Synthroid) 88 mcg DAILY@0600 PO Last administered on 11/26at 05:54; Start 11/25/17 at 06:00 Mercaptopurine (Purinethol) 50 mg DAILY PO Last administered on 11/26/17at 09:31 ; Start 11/25/17 at 09:00 Metoclopramide HCl (Reglan Inj) 5 mg Q8HR IV PUSH Last administered on at 22:44; Start 11/26/17 at 14:00 Metoprolol Tartrate (Lopressor) 25 mg COMPETITIVE ATHLETE PRN PO SEE LABEL COMMENTS; Start 11/25/17 at 18:45; Stop 11/28/17 at 18:44 Nystatin (Mycostatin Liq) 5 ml QID SWISH-SWAL Last administered on 11/26/17at 22:44; Start 11/26/17 at 13:00 Ondansetron HCl (Zofran Inj) 4 mg Q8HR PRN IV PUSH NAUSEA Last administered on 11/26/17at 10:47; Start 11/24/17 at 12:45 Oxycodone HCl (Roxicodone) 5 mg Q6H PRN PO PAIN 6-10; Start 11/24/17 at 13:45 Pantoprazole Sodium (Protonix) 40 mg DAILY PO Last administered on 11/26/17at 09 :27; Start 11/25/17 at 09:00 Povidone Iodine (Betadine 5% Antisepsis Kit) 1 applic COMPETITIVE ATHLETE PRN EACH NARE SEE LABEL COMMENTS; Start 11/25/17 at 18:45; Stop 11/28/17 at 18:44 Prednisone (Deltasone) 10 mg DAILY PO Last administered on 11/26/17at 09:27; Start 11/25/17 at 09:00 Sertraline HCl (Zoloft) 50 mg DAILY PO Last administered on 11/26/17at 09:27; Start 11/25/17 at 09:00 Sodium Chloride 500 ml @ 30 mls/hr [id number] PRN IV SEE LABEL COMMENTS; Start at 18:45; Stop 11/28/17 at 18:44 Sodium Chloride (NS Flush) 2 ml UNSCH PRN IVF FLUSH AFTER USING IV ACCESS; Start 11/24/17 at 10:00 A/P Problem List: (1) Hypoglycemia ICD Code: E16.2 - Hypoglycemia, unspecified (2) Dehydration ICD Code: E86.0 - Dehydration Assessment and Plan - intractable nausea/vomiting/ dehydration- overall better. continue with supportive care with IV fluid and antiemetics as needed. of note had EGD last month with Grade 1 esophageal varix 1/Food residue suggestive of gastroparesis and Abnormal antral mucosa of unclear significance possible gastritis. - dysphagia; GI consulted; s/p EGD on 11/26 with Portal gastropathy/ gastritis antrum-biopsy duodenum normal-biopsy white deposits r/o elvin-no biopsy or dilatation done due to presence of esophageal varices esophageal varices grade 1 -reported hypoglycemic episode with history of diabetes mellitus- has resolved- resumed long-acting insulin. monitor accu-check with SSI. -autoimmune hepatitis/ cirrhosis; continue lactulose and prednisone- hold Aldactone for now due to renal insufficiency -hypertension;resumed norvasc and clonidine- -CKD; hold Aldactone for now- will monitor renal function. -DVT prophylaxis with SCD's Discharge Planning discharge later this afternoon if blood sugar stable and cleared by GI. see med list. f/u; pcp and GI. d/w the patient. Shivam Cortes MD Nov 27, 2017 08:40
--- NOTE | 2017-11-27 08:43 | HHI.DS ---
Discharge Summary Admission Date Nov 24, 2017 at 12:29 Discharge Date: Nov 27, 2017 Admitting Diagnosis Hypoglycemia/dehydration (1) Hypoglycemia ICD Code: E16.2 - Hypoglycemia, unspecified Diagnosis: Principal (2) Dehydration ICD Code: E86.0 - Dehydration Diagnosis: Principal Procedures EGD Brief History - From Admission This is a 67-year-old female with a PMH of HTN, Hyperlipidemia, Autoimmune Hepatitis, Cirrhosis, Ascites, Anxiety, Depression, CKD who presented to ER with nausea and vomiting. she was admitted to this hospital recently and underwent GI w/u including EGD and thoracentesis and then was discharged home. she says that she's been having nausea and emesis over the past few days. she says that she hasn't been able to keep the food down. she denies any abdominal pain or change in BM. she denies any fever. she says that ' her blood sugar was low this morning'. CBC/BMP: 11/24/17 1010 11/25/17 0555 Significant Findings Laboratory Tests Test 11/24/17 10:10 11/25/17 05:55 Red Blood Count 3.55 MIL/MM3 (4.00-5.30) Hematocrit 34.3 % (35.0-46.0) Red Cell Distribution Width 18.0 % (11.6-17.2) Neutrophils (%) (Auto) 83.5 % (16.0-70.0) Lymphocytes # (Auto) 0.7 TH/MM3 (1.0-4.8) Activated Partial Thromboplast Time 21.1 SEC (24.3-30.1) Urine Glucose (UA) 300 mg/dL (NEG) Urine Mucus FEW /lpf (OCC) Blood Urea Nitrogen 56 MG/DL (7-18) 58 MG/DL (7-18) Creatinine 1.84 MG/DL (0.50-1.00) 1.64 MG/DL (0.50-1.00) Albumin 2.5 GM/DL (3.4-5.0) Alkaline Phosphatase 346 U/L (45-117) Aspartate Amino Transf (AST/SGOT) 84 U/L (15-37) Alanine Aminotransferase (ALT/SGPT) 58 U/L (10-53) Sodium Level 135 MEQ/L (136-145) Carbon Dioxide Level 18.9 MEQ/L (21.0-32.0) 17.7 MEQ/L (21.0-32.0) Estimat Glomerular Filtration Rate 27 ML/MIN (>89) 31 ML/MIN (>89) Random Glucose 225 MG/DL (74-106) PE at Discharge GENERAL: This is a well-nourished, well-developed patient, in no apparent distress. CARDIOVASCULAR: Regular rate and regular rhythm without murmurs, gallops, or rubs. RESPIRATORY: Clear to auscultation. Breath sounds equal bilaterally. No wheezes , rales, or rhonchi. GASTROINTESTINAL: Abdomen soft, non-tender, mildly distended. Normal, active bowel sounds MUSCULOSKELETAL: Extremities without clubbing, cyanosis, or edema. NEURO: Alert & Oriented x4 to person, place, time, situation. Moves all ext x4 Hospital Course - intractable nausea/vomiting/ dehydration- overall better. continue with supportive care with IV fluid and antiemetics as needed. of note had EGD last month with Grade 1 esophageal varix 1/Food residue suggestive of gastroparesis and Abnormal antral mucosa of unclear significance possible gastritis. - dysphagia; GI consulted; s/p EGD on 11/26 with Portal gastropathy/ gastritis antrum-biopsy duodenum normal-biopsy white deposits r/o elvin-no biopsy or dilatation done due to presence of esophageal varices esophageal varices grade 1 -reported hypoglycemic episode with history of diabetes mellitus- has resolved- resumed long-acting insulin. monitor accu-check with SSI. -autoimmune hepatitis/ cirrhosis; continue lactulose and prednisone- hold Aldactone for now due to renal insufficiency -hypertension;resumed norvasc and clonidine- -CKD; hold Aldactone for now- will monitor renal function. -DVT prophylaxis with SCD's Pt Condition on Discharge: Stable Discharge Disposition: RUDY with [facility] Discharge Time: <= 30 minutes Discharge Instructions DIET: Follow Instructions for: Diabetic Diet Activities you can perform: Regular-No Restrictions Shivam Cortes MD Nov 27, 2017 08:43
[2017-11-27] MEDS: METOCLOPRAMIDE HCL 10 MG/2 ML VIAL IV PUSH SCH ×3 (08:54→21:58)
[2017-11-27] MEDS ORDERED: INSULIN DETEMIR 100 UNITS/ML VIAL SQ ONE (09:00)
--- NOTE | 2017-11-27 09:26 | HHI.GIFU ---
Subjective Remarks Pt resting in bed Tolerating full liquid diet Denies nausea, vomiting, abdominal pain Reports BM since EGD States planning on going home today (Patricia Castellon) Objective Vitals I&O Vital Signs Date Time Temp Pulse Resp B/P (MAP) Pulse Ox O2 Delivery O2 Flow Rate FiO2 11/27/17 08:08 97.9 70 18 116/60 (78) 98 11/27/17 04:19 98.0 62 16 101/54 (70) 97 11/27/17 01:31 98.1 68 16 110/66 (81) 96 11/26/17 19:55 97.9 78 16 101/54 (70) 99 11/26/17 15:39 97.7 76 18 107/66 (80) 99 11/26/17 13:12 95.9 65 18 106/64 (78) 98 I/O 11/26/17 11/26/17 11/26/17 11/27/17 11/27/17 11/27/17 07:00 15:00 23:00 07:00 15:00 23:00 Intake Total 100 ml 200 ml Balance 100 ml 200 ml Intake Oral 200 ml Other 100 ml # Voids 3 # Bowel Movements 2 Imaging Last Impressions Barium Swallow X-Ray 11/25/17 0000 Signed Impressions: Service Date/Time: Saturday, November 25, 2017 12:51 - CONCLUSION: No obstructing mass. Marked presbyesophagus. Marco Chaudhari MD FACR Chest X-Ray 11/24/17 0947 Signed Impressions: Service Date/Time: Friday, November 24, 2017 09:55 - CONCLUSION: No acute disease. Dejan Trejo MD Physical Exam HEENT: Normocephalic; atraumatic CHEST: Even/unlabored CARDIAC: RRR ABDOMEN: Soft, mildly distended, nontender; bowel sounds active SKIN: Normal; no rash; no jaundice. TIMBER HAND: No focal deficits; alert and oriented times three. (Patricia Castellon) Assessment and Plan Plan ASSESSMENT - Cirrhosis secondary to autoimmune hepatitis- managed outpatient by Dr. Nicolas. On Prednisone. Labs on admission AST-84 ALT-58 Alk [id number] History of multiple paracentesis for ascites. Spironolactone as home med. - Dysphagia- S/P EGD (11/26) --> Portal gastropathy. Gastritis in the antrum. Normal duodenum. White deposits rule out elvin- no dilatation or biopsy done due to presence of varices. Esophageal varices grade 1. Hiatal hernia. Barium swallow (11/25) --> No obstructing mass. Marked presbyesophagus. Nutrition has recommended Glucerna shakes TID. PLAN - Pantoprazole - Reglan- can DC home on 5 mg PO TID PRN - Nystatin 5mL swish and swallow - EGD biopsy pending - Continue home medication - Follow up with Dr. Etienne after DC Pt has been seen and examined by myself and Dr. Perea and this note is written on her behalf (Patricia Castellon) Patricia Castellon Nov 27, 2017 09:26 Jacklyn Perea MD Nov 27, 2017 17:07
[2017-11-27] MEDS: NYSTATIN SUSP 500,000 U/5 ML CUP SWISH-SWAL SCH ×4 (11:59→21:56)
[2017-11-27] MEDS: INSULIN ASPART SUPPLEMENTAL SCALE SQ SCH ×4 (11:59→22:07)
[2017-11-27] MEDS: LACTULOSE SYRUP 20 GM/30 ML CUP PO SCH ×4 (12:00→21:00)
[2017-11-27] MEDS: amLODIPine BESYLATE 5 MG TAB PO SCH (12:01)
[2017-11-27] MEDS: predniSONE 10 MG TAB PO SCH (12:01)
[2017-11-27] MEDS: PANTOPRAZOLE SOD 40 MG DELAYED RELEASE TAB PO SCH (12:01)
[2017-11-27] MEDS: SERTRALINE HCL 50 MG TAB PO SCH (12:01)
[2017-11-27] MEDS: cloNIDine HCL 0.1 MG TAB PO SCH ×2 (12:04→21:00)
[2017-11-27] MEDS: MERCAPTOPURINE 50 MG TAB PO SCH (12:11)
[2017-11-27] MEDS: LEVOTHYROXINE SODIUM 88 MCG TAB PO SCH (12:12)
[2017-11-27 12:42] VITALS: BP 120/60; PULSE 68; RESP 20; TEMP 98.2; O2SAT 98
[2017-11-27] MEDS ORDERED: INSULIN ASPART SUPPLEMENTAL SCALE SQ SCH (17:00)
[2017-11-27 20:45] VITALS: BP 96/53; PULSE 86; RESP 16; TEMP 98.6; O2SAT 98
[2017-11-27] MEDS: LATANOPROST 0.005% OPHT SOLN 2.5 ML BTL EACH EYE SCH (21:57)
[2017-11-27] MEDS: INSULIN DETEMIR 100 UNITS/ML VIAL SQ SCH (22:06)
[2017-11-27 23:12] VITALS: BP 100/58; PULSE 68; RESP 17; TEMP 98; O2SAT 96
[2017-11-28 03:57] VITALS: BP 110/62; PULSE 82; RESP 17; TEMP 98.8; O2SAT 97
[2017-11-28] MEDS: METOCLOPRAMIDE HCL 10 MG/2 ML VIAL IV PUSH SCH ×2 (05:56→14:04)
[2017-11-28] MEDS: LEVOTHYROXINE SODIUM 88 MCG TAB PO SCH (05:56)
[2017-11-28 07:50] VITALS: BP 127/71; PULSE 81; RESP 16; TEMP 98.4; O2SAT 98
[2017-11-28] MEDS: INSULIN ASPART SUPPLEMENTAL SCALE SQ SCH ×4 (08:00→21:00)
[2017-11-28] MEDS: LACTULOSE SYRUP 20 GM/30 ML CUP PO SCH ×3 (09:00→18:00)
[2017-11-28] MEDS ORDERED: INSULIN DETEMIR 100 UNITS/ML VIAL SQ SCH (09:00)
[2017-11-28] MEDS: PANTOPRAZOLE SOD 40 MG DELAYED RELEASE TAB PO SCH (09:38)
[2017-11-28] MEDS: NYSTATIN SUSP 500,000 U/5 ML CUP SWISH-SWAL SCH ×3 (09:39→18:00)
[2017-11-28] MEDS: cloNIDine HCL 0.1 MG TAB PO SCH (09:42)
[2017-11-28] MEDS: MERCAPTOPURINE 50 MG TAB PO SCH (09:42)
[2017-11-28] MEDS: predniSONE 10 MG TAB PO SCH (09:43)
[2017-11-28] MEDS: amLODIPine BESYLATE 5 MG TAB PO SCH (09:43)
[2017-11-28] MEDS: SERTRALINE HCL 50 MG TAB PO SCH (09:43)
--- NOTE | 2017-11-28 10:44 | HHI.PR ---
Subjective Remarks in no acute distress. abdominal distention is worse and now ' she feels some pressure'. no nausea or vomiting. blood sugar trend noted. Objective Vitals Vital Signs Date Time Temp Pulse Resp B/P (MAP) Pulse Ox O2 Delivery O2 Flow Rate FiO2 11/28/17 07:50 98.4 81 16 127/71 (89) 98 11/28/17 03:57 98.8 82 17 110/62 (78) 97 11/27/17 23:12 98.0 68 17 100/58 (72) 96 11/27/17 20:45 98.6 86 16 96/53 (67) 98 11/27/17 12:42 98.2 68 20 120/60 (80) 98 I/O 11/27/17 11/27/17 11/27/17 11/28/17 11/28/17 11/28/17 07:00 15:00 23:00 07:00 15:00 23:00 Intake Total 200 ml Output Total 300 ml Balance 200 ml -300 ml Intake Oral 200 ml Output Urine Total 300 ml # Voids 4 # Bowel Movements 2 Result Diagram: 11/24/17 1010 11/27/17 1447 Imaging Last Impressions Barium Swallow X-Ray 11/25/17 0000 Signed Impressions: Service Date/Time: Saturday, November 25, 2017 12:51 - CONCLUSION: No obstructing mass. Marked presbyesophagus. Marco Chaudhari MD FACR Chest X-Ray 11/24/17 0947 Signed Impressions: Service Date/Time: Friday, November 24, 2017 09:55 - CONCLUSION: No acute disease. Dejan Trejo MD Objective Remarks GENERAL: This is a well-nourished, well-developed patient, in no apparent distress. CARDIOVASCULAR: Regular rate and regular rhythm without murmurs, gallops, or rubs. RESPIRATORY: Clear to auscultation. Breath sounds equal bilaterally. No wheezes , rales, or rhonchi. GASTROINTESTINAL: Abdomen soft, non-tender, mildly distended. Normal, active bowel sounds MUSCULOSKELETAL: Extremities without clubbing, cyanosis, or edema. NEURO: Alert & Oriented x4 to person, place, time, situation. Moves all ext x4 Procedures EGD Medications and IVs Inpatient Medications Amlodipine Besylate (Norvasc) 2.5 mg DAILY PO Last administered on 11/28/17at 09 :43; Start 11/25/17 at 09:00 Chlorhexidine Gluconate (Chlorhexidine 2% Cloth) 3 pack PSYCHIATRIC ARNP PRN TOPICAL SEE LABEL COMMENTS; Start 11/25/17 at 18:45; Stop 11/28/17 at 18:44 Clonidine (Catapres) 0.1 mg BID PO Last administered on 11/28/17at 09:42; Start 11/24/17 at 21:00 Dextrose (D50w (Vial) Inj) 50 ml UNSCH PRN IV PUSH HYPOGLYCEMIA-SEE COMMENTS; Start 11/24/17 at 17:45 Glucagon (Glucagon Inj) 1 mg UNSCH PRN OTHER HYPOGLYCEMIA-SEE COMMENTS; Start 11/24/17 at 17:45 Insulin Aspart (NovoLOG SUPPLEMENTAL SCALE) 1 ACHS SLIDING SCALE SQ Last administered on 11/28/17at 08:00; Start 11/27/17 at 15:48 Insulin Detemir (Levemir Inj) 5 units DAILY SQ ; Start 11/28/17 at 09:00 Lactated Ringer's 1,000 ml @ 30 mls/hr Q24H PRN IV SEE LABEL COMMENTS Last administered on 11/26/17at 11:21; Start 11/25/17 at 18:45; Stop 11/28/17 at 18:44 Lactulose (Lactulose Liq) 30 ml QID PO Last administered on 11/27/17at 18:28; Start 11/24/17 at 13:45 Latanoprost (Xalatan 0.005% Opt Soln) 1 drop HS EACH EYE Last administered on 11/27/17at 21:57; Start 11/24/17 at 21:00 Levothyroxine Sodium (Synthroid) 88 mcg DAILY@0600 PO Last administered on 11/28at 05:56; Start 11/25/17 at 06:00 Mercaptopurine (Purinethol) 50 mg DAILY PO Last administered on 11/28/17at 09:42 ; Start 11/25/17 at 09:00 Metoclopramide HCl (Reglan Inj) 5 mg Q8HR IV PUSH Last administered on at 05:56; Start 11/26/17 at 14:00 Metoprolol Tartrate (Lopressor) 25 mg PSYCHIATRIC ARNP PRN PO SEE LABEL COMMENTS; Start 11/25/17 at 18:45; Stop 11/28/17 at 18:44 Nystatin (Mycostatin Liq) 5 ml QID SWISH-SWAL Last administered on 11/28/17at 09:39; Start 11/26/17 at 13:00 Ondansetron HCl (Zofran Inj) 4 mg Q8HR PRN IV PUSH NAUSEA Last administered on 11/26/17at 10:47; Start 11/24/17 at 12:45 Oxycodone HCl (Roxicodone) 5 mg Q6H PRN PO PAIN 6-10; Start 11/24/17 at 13:45 Pantoprazole Sodium (Protonix) 40 mg DAILY PO Last administered on 11/28/17at 09 :38; Start 11/25/17 at 09:00 Povidone Iodine (Betadine 5% Antisepsis Kit) 1 applic PSYCHIATRIC ARNP PRN EACH NARE SEE LABEL COMMENTS; Start 11/25/17 at 18:45; Stop 11/28/17 at 18:44 Prednisone (Deltasone) 10 mg DAILY PO Last administered on 11/28/17at 09:43; Start 11/25/17 at 09:00 Sertraline HCl (Zoloft) 50 mg DAILY PO Last administered on 11/28/17at 09:43; Start 11/25/17 at 09:00 Sodium Chloride 500 ml @ 30 mls/hr [id number] PRN IV SEE LABEL COMMENTS; Start at 18:45; Stop 11/28/17 at 18:44 Sodium Chloride (NS Flush) 2 ml UNSCH PRN IVF FLUSH AFTER USING IV ACCESS Last administered on 11/27/17at 21:57; Start 11/24/17 at 10:00 A/P Problem List: (1) Hypoglycemia ICD Code: E16.2 - Hypoglycemia, unspecified (2) Dehydration ICD Code: E86.0 - Dehydration Assessment and Plan - intractable nausea/vomiting/ dehydration- overall better. continue with supportive care with IV fluid and antiemetics as needed. of note had EGD last month with Grade 1 esophageal varix 1/Food residue suggestive of gastroparesis and Abnormal antral mucosa of unclear significance possible gastritis. - dysphagia; GI consulted; s/p EGD on 11/26 with Portal gastropathy/ gastritis antrum-biopsy duodenum normal-biopsy white deposits r/o elvin-no biopsy or dilatation done due to presence of esophageal varices esophageal varices grade 1 - diabetes mellitus with hypoglycemic episode- change sliding scale back to low scale- monitor blood sugar and adjust the regimen accordingly. -autoimmune hepatitis/ cirrhosis; abdominal distention is worse- continue lactulose and prednisone- hold Aldactone for now due to renal insufficiency- consult IR for therapeutic paracentesis. -hypertension;resumed norvasc and clonidine- -CKD; hold Aldactone for now- will monitor renal function. -DVT prophylaxis with SCD's Discharge Planning discharge later this afternoon if blood sugar stable and cleared by GI. see med list. f/u; pcp and GI. d/w the patient. Shivam Cortes MD Nov 28, 2017 10:44
[2017-11-28 11:45] VITALS: BP 110/61; PULSE 86; RESP 18; TEMP 98.6; O2SAT 98
[2017-11-28] MEDS ORDERED: LIDOCAINE HCL 1% PF 10 ML VIAL ONE (13:40)
--- NOTE | 2017-11-28 13:45 | RADRPT ---
EXAM DATE/TIME: 11/28/2017 11:25 [place] COMPARISON: EXTERNAL COMPARISON: US GUIDED ABD PARACENTESIS, November 19, 2017, 10:28. US GUIDED ABD PARACENTESIS, November 10, 2017, 9:40. [place] INDICATIONS : Ascites. MEDICAL HISTORY : Hypothyroidism. Hypercholesterolemia. Cirrhosis. HTN. GERD. Diabetes. Hepatitis. Ascites. SURGICAL HISTORY : Appendectomy. Hysterectomy. Liver biopsy. Paracentesis. ENCOUNTER: Subsequent ACUITY: 4 - 6 months PAIN SCORE: 0/10 LOCATION: Right lower quadrant FLUID: Total volume of 6100 cc of clear, yellow fluid was removed. Fluid was discarded. Paracentesis was therapeutic only. Post procedure scanning reveals no hematoma or other complication. TECHNIQUE: 1. Ultrasound guidance for abdominal paracentesis. 2. Paracentesis. The risks, benefits, and alternatives to ultrasound guided paracentesis were explained to the patient in detail including the risk of bleeding and infection. Written and verbal informed consent was obt ained. With the patient on the ultrasound table, ultrasound imaging was used to select the most appropriate approach for paracentesis. Overlying skin was prepped and draped in the usual sterile fashion and wi th a local anesthetic, a dermatotomy was made with an 11 blade scalpel. A 6 [place] [id number] ca theter was introduced into the peritoneal cavity and fluid was collected. The patient tolerated the procedure well and left the ultrasound suite in stable condition. CONCLUSION: Uncomplicated ultrasound guided paracentesis. Idris Dumas MD on November 28, 2017 at 13:42 Board Certified Radiologist. This report was verified electronically.
[2017-11-28 15:50] VITALS: BP 131/61; PULSE 70; RESP 18; TEMP 97.8; O2SAT 99
[2017-11-28 19:54] VITALS: BP 132/60; PULSE 82; RESP 16; TEMP 99.2; O2SAT 98
[2017-11-28] MEDS ORDERED: INSULIN HUMAN REGULAR 1,000 UNITS/10 ML VIAL IV PUSH ONE ×2 (20:15→23:45)
[2017-11-28] MEDS: INSULIN DETEMIR 100 UNITS/ML VIAL SQ SCH (21:00)
[2017-11-28 23:16] LABS: BICARBONATE 20.2 MEQ/L (21.0-32.0); CREATININE 2.08 MG/DL (0.50-1.00)
[2017-11-28] MEDS ORDERED: SODIUM CHLOR 0.9% 1000 ML INJ 1,000 ML IV ONE (23:30)
[2017-11-28] MEDS ORDERED: INSULIN DETEMIR 100 UNITS/ML VIAL SQ ONE (23:45)
[2017-11-29] VITALS (7 sets, daily range): BP systolic 106–132; BP diastolic 60–73; PULSE 74–89; RESP 16–18; TEMP 97.6–98.9; O2SAT 97–99
[2017-11-29] MEDS: LATANOPROST 0.005% OPHT SOLN 2.5 ML BTL EACH EYE SCH ×2 (00:01→22:01)
[2017-11-29] MEDS: NYSTATIN SUSP 500,000 U/5 ML CUP SWISH-SWAL SCH ×5 (00:14→21:53)
[2017-11-29] MEDS ORDERED: MISC INFORMATION OTHER ONE (01:45)
[2017-11-29] MEDS ORDERED: DEXTROSE 50% IN WATER 50 ML VIAL(D50) IV PUSH PRN ×2 (01:45→13:30)
[2017-11-29] MEDS ORDERED: INSULIN REGULAR (IV INFUSION) 100 UNITS in SODIUM CHLORIDE 0.9% INJ 99 ML IV PRN (01:45)
[2017-11-29] MEDS ORDERED: SODIUM CHLORIDE FLUSH PRN IV FLUSH (02:15)
[2017-11-29] MEDS ORDERED: INSULIN HUMAN REGULAR 1,000 UNITS/10 ML VIAL IV PUSH ONE ×2 (02:45→04:15)
[2017-11-29 05:23] LABS: BICARBONATE 17.1 MEQ/L (21.0-32.0); CALCIUM 7.6 MG/DL (8.5-10.1); CREATININE 1.68 MG/DL (0.50-1.00)
[2017-11-29] MEDS: METOCLOPRAMIDE HCL 10 MG/2 ML VIAL IV PUSH SCH ×4 (06:07→21:53)
[2017-11-29] MEDS: LEVOTHYROXINE SODIUM 88 MCG TAB PO SCH (06:08)
[2017-11-29] MEDS: predniSONE 10 MG TAB PO SCH (08:50)
[2017-11-29] MEDS: LACTULOSE SYRUP 20 GM/30 ML CUP PO SCH ×5 (08:50→21:00)
[2017-11-29] MEDS: PANTOPRAZOLE SOD 40 MG DELAYED RELEASE TAB PO SCH (08:50)
[2017-11-29] MEDS: SODIUM CHLORIDE FLUSH BID IV FLUSH SCH ×2 (08:50→21:54)
[2017-11-29] MEDS: SERTRALINE HCL 50 MG TAB PO SCH (08:50)
[2017-11-29] MEDS: MERCAPTOPURINE 50 MG TAB PO SCH (08:57)
[2017-11-29] MEDS: amLODIPine BESYLATE 5 MG TAB PO SCH (09:00)
[2017-11-29] MEDS: cloNIDine HCL 0.1 MG TAB PO SCH ×3 (09:00→21:53)
[2017-11-29] MEDS: ONDANSETRON HCL 4 MG/2 ML VIAL IV PUSH PRN ×2 (09:21→17:39)
--- NOTE | 2017-11-29 10:30 | HHI.PR ---
Subjective Remarks Patient with nausea vomiting to keep anything down. Blood sugar 500 she was started on insulin drip. No abdominal pain. No diarrhea she had a normal bowel movement. Denies any headaches. No fever or chills no cough. Denies any chest pain diaphoresis. Objective Vitals Vital Signs Date Time Temp Pulse Resp B/P (MAP) Pulse Ox O2 Delivery O2 Flow Rate FiO2 11/29/17 07:00 98.0 77 16 106/62 (77) 97 11/29/17 03:00 97.6 74 18 115/73 (87) 97 11/29/17 00:27 97.6 89 17 132/60 (84) 98 11/28/17 19:54 99.2 82 16 132/60 (84) 98 11/28/17 15:50 97.8 70 18 131/61 (84) 99 11/28/17 11:45 98.6 86 18 110/61 (77) 98 I/O 11/28/17 11/28/17 11/28/17 11/29/17 11/29/17 11/29/17 07:00 15:00 23:00 07:00 15:00 23:00 Intake Total 700 ml 2141 ml Output Total 0 ml 300 ml Balance 700 ml 1841 ml Intake Oral 700 ml 120 ml IV Total 2021 ml Output Urine Total 300 ml Stool Total 0 ml # Voids 2 # Bowel Movements 1 Result Diagram: 11/29/17 0343 Imaging Reported Meds & Active Scripts Active Bethanechol 10 Mg Tab 10 Mg PO TID 14 Days [Nystatin Liq] 5 ML Susp 5 Ml SWISH-SWAL QID 14 Days Levemir Inj (Insulin Detemir) 1,000 unit/ 10 ML Vial 10 Units SQ HS Do not mix with any other Insulin. GIVE ONE DOSE AT BED TIME, AND TITRATE NEEDED. Pantoprazole (Pantoprazole Sodium) 40 Mg Tab 40 Mg PO DAILY Oxycodone (Oxycodone HCl) 5 Mg Tab 5 Mg PO Q4H PRN DO NOT USE THIS MEDICINE IF YOU WILL DRIVE A CAR OR USE A MACHINE, ONLY USE IT WHEN RESTING AT HOME. Norvasc (Amlodipine Besylate) 5 Mg Tab 2.5 Mg PO DAILY Zofran Odt (Ondansetron Odt) 8 Mg Tab 8 Mg SL Q8H PRN [Lactulose Liq] 30 ML Syrp 30 Ml PO QID Spironolactone 25 Mg Tab 25 Mg PO DAILY Prednisone 10 Mg Tab 10 Mg PO DAILY 30 Days Clonidine (Clonidine HCl) 0.1 Mg Tab 0.1 Mg PO BID Zoloft (Sertraline HCl) 50 Mg Tab 50 Mg PO DAILY Reported Xalatan Opth Drops (Latanoprost) 0.005% Drops 1 Drop EACH EYE HS Levothyroxine (Levothyroxine Sodium) 88 Mcg Tab 88 Mcg PO DAILY Novolog Inj (Insulin Aspart) 1,000 Unit/10 Ml Vial 0 SQ DIRECTED Sliding Scale as directed. C-500 (Ascorbic Acid) 500 Mg Tab.chew 500 Mg PO DAILY Vitamin D3 (Cholecalciferol) 1,000 Unit Tab 1,000 Units PO DAILY Mercaptopurine 50 Mg Tab 50 Mg PO DAILY Objective Remarks GENERAL: This is a well-nourished, well-developed patient, in no apparent distress. CARDIOVASCULAR: Regular rate and regular rhythm without murmurs, gallops, or rubs. RESPIRATORY: Clear to auscultation. Breath sounds equal bilaterally. No wheezes , rales, or rhonchi. GASTROINTESTINAL: Abdomen soft, non-tender, mildly distended. Normal, active bowel sounds MUSCULOSKELETAL: Extremities without clubbing, cyanosis, or edema. NEURO: Alert & Oriented x4 to person, place, time, situation. Moves all ext x4 Procedures EGD A/P Problem List: (1) Hypoglycemia ICD Code: E16.2 - Hypoglycemia, unspecified (2) Dehydration ICD Code: E86.0 - Dehydration Assessment and Plan Intractable nausea/vomiting/ dehydration- overall better. continue with supportive care with IV fluid and antiemetics as needed. of note had EGD last month with Grade 1 esophageal varix 1/Food residue suggestive of gastroparesis and Abnormal antral mucosa of unclear significance possible gastritis. Dysphagia. GI consulted; s/p EGD on 11/26 with Portal gastropathy/ gastritis antrum-biopsy duodenum normal-biopsy white deposits r/o elvin-no biopsy or dilatation done due to presence of esophageal varices esophageal varices grade 1 Diabetes mellitus labile with hypoglycemic episode and persistent hyperglycemia Now with hyperglycemia uncontrolled BS Placed on insulin drip taper per protocol monitor blood sugar and adjust the regimen accordingly. Autoimmune hepatitis/ cirrhosis: abdominal distention is worse- continue lactulose and prednisone- hold Aldactone for now due to renal insufficiency- consult IR for therapeutic paracentesis. Hypertension: resumed norvasc and clonidine- CKD; hold Aldactone for now- will monitor renal function. DVT prophylaxis with SCD's Discharge Planning BS is not controlled placed on insulin drip, titrate. DC home with home health when cleared by GI and when BS normalized f/u; pcp and GI as OP discussed with the patient, nurse. Analisa Darden MD Nov 29, 2017 10:30
[2017-11-29] MEDS ORDERED: GLUCAGON 1 MG/ML VIAL OTHER PRN (13:30)
[2017-11-29] MEDS: INSULIN ASPART SUPPLEMENTAL SCALE SQ SCH ×2 (17:01→22:01)
[2017-11-30] VITALS (8 sets, daily range): BP systolic 102–130; BP diastolic 60–74; PULSE 72–93; RESP 16–18; TEMP 98.1–98.5; O2SAT 96–99
[2017-11-30 04:17] LABS: AUTOMATED NEUTROPHIL # 4.1 TH/MM3 (1.8-7.7); BASOPHIL % 0.3 % (0.0-2.0); EOSINOPHIL % 0.7 % (0.0-4.0); HEMATOCRIT 31.5 % (35.0-46.0); HEMOGLOBIN 10.5 GM/DL (11.6-15.3); LYMPH % 16.9 % (9.0-44.0); LYMPHOCYTE # 0.9 TH/MM3 (1.0-4.8); MEAN CELL VOLUME 97.3 FL (80.0-100.0); MEAN CORPUSCULAR HEMOGLOBIN 32.3 PG (27.0-34.0); MEAN CORPUSCULAR HGB CONC 33.2 % (32.0-36.0); MEAN PLATELET VOLUME 8.9 FL (7.0-11.0); MONO % 8.3 % (0.0-8.0); MONOCYTE # 0.5 TH/MM3 (0-0.9); NEUT % 73.8 % (16.0-70.0); PLATELET COUNT 152 TH/MM3 (150-450); RED BLOOD COUNT 3.24 MIL/MM3 (4.00-5.30); WHITE BLOOD COUNT 5.5 TH/MM3 (4.0-11.0)
[2017-11-30 04:32] LABS: BICARBONATE 21.8 MEQ/L (21.0-32.0); CALCIUM 8.3 MG/DL (8.5-10.1); CREATININE 1.43 MG/DL (0.50-1.00)
[2017-11-30] MEDS: LEVOTHYROXINE SODIUM 88 MCG TAB PO SCH (06:14)
[2017-11-30] MEDS: METOCLOPRAMIDE HCL 10 MG/2 ML VIAL IV PUSH SCH ×3 (06:14→21:40)
[2017-11-30] MEDS: INSULIN ASPART SUPPLEMENTAL SCALE SQ SCH ×5 (07:57→21:00)
--- NOTE | 2017-11-30 08:17 | HHI.PR ---
Subjective Remarks This is a pleasant 67 y/o Female with Hypertension, Hyperlipidemia, Autoimmune Hepatitis, Cirrhosis, Ascites, Anxiety disorder, Depression CKD who came to ER with nausea and vomit, recently hospitalized and status post EGD and Thoracentesis, admitted 11/24/1711/30: Yesterday was vomiting, increased blood sugar, uncontrolled blood sugar, giving Insulin Subcutaneous and IV and following, GI specialist consulted, Dysphagia and Portal gastropathy, status post EGD 11/26 , Esophageal Varices grade 1, Hiatal hernia, Barium Swallow, On Protonix, Reglan to continue 5 mg TID PRN, Nystatin 5 ml swish and swallow, Follow up with Doctor Lowell after DC. Objective Vital Signs Date Time Temp Pulse Resp B/P (MAP) Pulse Ox O2 Delivery O2 Flow Rate FiO2 11/30/17 04:00 98.1 76 18 126/65 (85) 96 11/30/17 04:00 76 11/30/17 00:00 72 11/30/17 00:00 98.5 72 18 115/64 (81) 99 11/29/17 20:00 79 11/29/17 19:45 98.4 80 18 124/67 (86) 98 11/29/17 15:00 98.9 89 16 118/69 (85) 99 11/29/17 11:00 98.5 77 16 112/68 (83) 99 I/O 11/29/17 11/29/17 11/29/17 11/30/17 11/30/17 11/30/17 06:59 14:59 22:59 06:59 14:59 22:59 Intake Total 1141 ml 1000 ml 1051 ml 240 ml Output Total 300 ml 400 ml 350 ml Balance 841 ml 1000 ml 651 ml -110 ml Intake Oral 120 ml 1020 ml 240 ml IV Total 1021 ml 1000 ml 31 ml Output Urine Total 300 ml 400 ml 350 ml # Bowel Movements 2 0 Result Diagram: 11/30/17 0330 11/30/17 0330 Imaging Last Impressions Cyst Biopsy Asp-Paracentesis US 11/28/17 0000 Signed Impressions: Service Date/Time: Tuesday, November 28, 2017 11:25 - CONCLUSION: Uncomplicated ultrasound guided paracentesis. Idris Dumas MD Barium Swallow X-Ray 11/25/17 0000 Signed Impressions: Service Date/Time: Saturday, November 25, 2017 12:51 - CONCLUSION: No obstructing mass. Marked presbyesophagus. Marco Chaudhari MD FACR Chest X-Ray 11/24/17 0947 Signed Impressions: Service Date/Time: Friday, November 24, 2017 09:55 - CONCLUSION: No acute disease. Dejan Trejo MD Procedures EGD Other Results Laboratory Tests Test 11/24/17 10:10 11/28/17 22:30 11/30/17 03:30 Prothrombin Time 10.8 SEC Prothromb Time International Ratio 1.1 RATIO Activated Partial Thromboplast Time 21.1 SEC Urine Color YELLOW Urine Turbidity CLEAR Urine pH 5.5 Urine Specific [place] 1.016 Urine Protein TRACE mg/dL Urine Glucose (UA) 300 mg/dL Urine Ketones NEG mg/dL Urine Occult Blood NEG Urine Nitrite NEG Urine Bilirubin NEG Urine Urobilinogen 2.0 MG/DL Urine Leukocyte Esterase NEG Urine RBC LESS THAN 1 /hpf Urine WBC 1 /hpf Urine Transitional Epithelial Cells <1 /hpf Urine Hyaline Casts 16 /lpf Urine Mucus FEW /lpf Microscopic Urinalysis Comment CULT NOT INDICATED Blood Urea Nitrogen 56 MG/DL 58 MG/DL Creatinine 1.84 MG/DL 1.43 MG/DL Random Glucose 97 MG/DL 232 MG/DL Total Protein 7.0 GM/DL Albumin 2.5 GM/DL Calcium Level 8.8 MG/DL 8.3 MG/DL Magnesium Level 2.2 MG/DL Alkaline Phosphatase 346 U/L Aspartate Amino Transf (AST/SGOT) 84 U/L Alanine Aminotransferase (ALT/SGPT) 58 U/L Total Bilirubin 0.8 MG/DL Sodium Level 135 MEQ/L 135 MEQ/L Potassium Level 5.0 MEQ/L 5.7 MEQ/L Chloride Level 102 MEQ/L 103 MEQ/L Carbon Dioxide Level 18.9 MEQ/L 21.8 MEQ/L Total Creatine Kinase 50 U/L Troponin I 0.02 NG/ML B-Hydroxybutyrate 0.19 MMOL/L White Blood Count 5.5 TH/MM3 Red Blood Count 3.24 MIL/MM3 Hemoglobin 10.5 GM/DL Hematocrit 31.5 % Mean Corpuscular Volume 97.3 FL Mean Corpuscular Hemoglobin 32.3 PG Mean Corpuscular Hemoglobin Concent 33.2 % Red Cell Distribution Width 18.0 % Platelet Count 152 TH/MM3 Mean Platelet Volume 8.9 FL Neutrophils (%) (Auto) 73.8 % Lymphocytes (%) (Auto) 16.9 % Monocytes (%) (Auto) 8.3 % Eosinophils (%) (Auto) 0.7 % Basophils (%) (Auto) 0.3 % Neutrophils # (Auto) 4.1 TH/MM3 Lymphocytes # (Auto) 0.9 TH/MM3 Monocytes # (Auto) 0.5 TH/MM3 Eosinophils # (Auto) 0.0 TH/MM3 Basophils # (Auto) 0.0 TH/MM3 CBC Comment DIFF FINAL Differential Comment Anion Gap 10 MEQ/L Estimat Glomerular Filtration Rate 37 ML/MIN Objective Remarks GENERAL: No acute distress. CARDIOVASCULAR: Regular rate and regular rhythm without murmurs, gallops, or rubs. RESPIRATORY: Clear to auscultation. Breath sounds equal bilaterally. No wheezes , rales, or rhonchi. GASTROINTESTINAL: Abdomen soft, non-tender, mildly distended. Normal, active bowel sounds MUSCULOSKELETAL: Extremities without clubbing, cyanosis, or edema. NEURO: Alert & Oriented x4 to person, place, time, situation. Moves all ext x4 Medications and IVs Current Medications Medications (Trade) Dose Ordered Sig/Miranda Route Start Time Stop Time Status Last Admin (Zofran Inj) 4 mg Q8HR PRN IV PUSH 11/24/17 12:45 11/29/17 17:39 (Roxicodone) 5 mg Q6H PRN PO 11/24/17 13:45 (Norvasc) 2.5 mg DAILY PO 11/25/17 09:00 11/28/17 09:43 (Catapres) 0.1 mg BID PO 11/24/17 21:00 11/29/17 21:53 (Xalatan 0.005% Opth Soln) 1 drop HS EACH EYE 11/24/17 21:00 11/29/17 22:01 (Synthroid) 88 mcg DAILY@0600 PO 11/25/17 06:00 11/30/17 06:14 (Purinethol) 50 mg DAILY PO 11/25/17 09:00 11/29/17 08:57 (Protonix) 40 mg DAILY PO 11/25/17 09:00 11/29/17 08:50 (Deltasone) 10 mg DAILY PO 11/25/17 09:00 11/29/17 08:50 (Zoloft) 50 mg DAILY PO 11/25/17 09:00 11/29/17 08:50 (Lactulose Liq) 30 ml QID PO 11/24/17 13:45 11/29/17 08:50 (Mycostatin Liq) 5 ml QID SWISH-SWAL 11/26/17 13:00 11/29/17 21:53 (Reglan Inj) 5 mg Q8HR IV PUSH 11/26/17 14:00 11/30/17 06:14 (NS Flush) 2 ml BID IV FLUSH 11/29/17 09:00 11/29/17 21:54 (NS Flush) 2 ml UNSCH PRN IV FLUSH 11/29/17 02:15 (D50w (Vial) Inj) 50 ml UNSCH PRN IV PUSH 11/29/17 13:30 (Glucagon Inj) 1 mg UNSCH PRN OTHER 11/29/17 13:30 (NovoLOG SUPPLEMENTAL SCALE) 1 ACHS SLIDING SCALE SQ 11/29/17 17:00 11/30/17 07:57 A/P Assessment and Plan Intractable nausea/vomiting/ dehydration- overall better. continue with supportive care with IV fluid and antiemetics as needed. of note had EGD last month with Grade 1 esophageal varix 1/Food residue suggestive of gastroparesis and Abnormal antral mucosa of unclear significance possible gastritis. recommended by GI specialist GI specialist consulted, Dysphagia and Portal gastropathy, status post EGD 11/26, Esophageal Varices grade 1, Hiatal hernia, Barium Swallow, On Protonix, Reglan to continue 5 mg TID PRN, Nystatin 5 ml swish and swallow, Follow up with Doctor Lowell after DC. Dysphagia. GI consulted; s/p EGD on 11/26 with Portal gastropathy/ gastritis antrum-biopsy duodenum normal-biopsy white deposits r/o elvin-no biopsy or dilatation done due to presence of esophageal varices esophageal varices grade 1 Diabetes mellitus labile with hypoglycemic episode and persistent hyperglycemia Now with hyperglycemia uncontrolled BS today she is off Insulin drip, started on Levemir 10 units, and giving sliding scale. following at this time blood sugar 173 mg/dl and following. Autoimmune hepatitis/ cirrhosis: abdominal distention is worse- continue lactulose and prednisone- hold Aldactone for now due to renal insufficiency- consult IR for therapeutic paracentesis. Hypertension: resumed Norvasc and clonidine- CKD; hold Aldactone for now- will monitor renal function. Improving condition. Hyperkalemia will not give Kayexalate due to that is receiving insulin for increased blood sugar. DVT prophylaxis with SCD's Discharge Planning Will discharge Home once Blood sugar normalized. Chuck Hancock MD Nov 30, 2017 08:17
[2017-11-30] MEDS: LACTULOSE SYRUP 20 GM/30 ML CUP PO SCH ×4 (09:00→21:39)
[2017-11-30] MEDS: NYSTATIN SUSP 500,000 U/5 ML CUP SWISH-SWAL SCH ×4 (09:06→21:40)
[2017-11-30] MEDS: SERTRALINE HCL 50 MG TAB PO SCH (09:07)
[2017-11-30] MEDS: PANTOPRAZOLE SOD 40 MG DELAYED RELEASE TAB PO SCH (09:09)
[2017-11-30] MEDS: cloNIDine HCL 0.1 MG TAB PO SCH ×2 (09:09→21:39)
[2017-11-30] MEDS: predniSONE 10 MG TAB PO SCH (09:09)
[2017-11-30] MEDS: MERCAPTOPURINE 50 MG TAB PO SCH (09:09)
[2017-11-30] MEDS: amLODIPine BESYLATE 5 MG TAB PO SCH (09:10)
[2017-11-30] MEDS: SODIUM CHLORIDE FLUSH BID IV FLUSH SCH ×2 (09:10→21:00)
[2017-11-30] MEDS ORDERED: INSULIN HUMAN REGULAR 1,000 UNITS/10 ML VIAL SQ ONE (11:45)
[2017-11-30] MEDS ORDERED: INSULIN HUMAN REGULAR 1,000 UNITS/10 ML VIAL IV PUSH ONE (11:45)
[2017-11-30] MEDS ORDERED: INSULIN DETEMIR 100 UNITS/ML VIAL SQ SCH (12:30)
--- NOTE | 2017-11-30 16:06 | PD.CONS ---
History of Present Illness Service Endocrinology Consult Requested By Dr Darden Reason for Consult Uncontrolled Diabetes Primary Care Physician Luis Clark DO Diagnoses: History of Present Illness This is a pleasant 67 years old lady from [place] who was recently admitted for intractable nausea and vomiting after an EGD. The patient has a complicated history consisting of autoimmune hepatitis, cirrhosis, hypothyroidism, diabetes , anxiety, depression and HTN. She is an only child and does not have a history of diabetes in the family. She used to be heavy and recalls being at about 150 lbs when she was diagnosed with diabetes in the year 1999. Otherwise she is currently on Levemir 20 units QAM and 10 units QPM with what sounds like a corrective sliding scale. She reports having lost at least 30 lbs since her diagnosis. At home her intake is poor. Currently she has been having difficulty with her oral intake but has been tolerating the clear liquid diet it seems. She spends the most of her time in bed except for going to the restroom. She has not been trained on counting her carbohydrates at home it seems. Otherwise she has had cataract surgery and has a history of PNP and was found to have some food in her stomach during the EGD suggestive/Consistent with some degree of Gastroparesis. At home the tends to have a fair amount of hypoglycemic events with no specific pattern. She reports her threshold to be around 60-70mg/ dl and to be warned by tremors and other adrenergic symptoms. Her blood glucose during this hospitalization have been fluctuating reason for the consultation to endocrinology. Review of Systems Constitutional: COMPLAINS OF: Fatigue, Weight loss, Change in appetite Endocrine: COMPLAINS OF: Polydipsia, Polyuria, Polyphagia Eyes: COMPLAINS OF: Blurred vision (only when her glucose is high) Ears, nose, mouth, throat: DENIES: Tinnitus, Hearing loss, Vertigo, Nasal discharge, Oral lesions, Throat pain, Hoarseness, Ear Pain, Running Nose, Epistaxis, Sinus Pain, Toothache, Odynophagia Gastrointestinal: COMPLAINS OF: Nausea, Vomiting, Difficulty Swallowing, Anorexia Neurologic: COMPLAINS OF: Paresthesias (in her feet related to her history of peripheral neuropathy) Psychiatric: COMPLAINS OF: Anxiety (history of), Depression (being treated) Past Family Social History Allergies: Coded Allergies: doxycycline (Verified Allergy, Severe, Rash, 11/17/17) minocycline (Verified Allergy, Severe, Rash, 11/17/17) morphine (Verified Allergy, Severe, Rash, 11/17/17) penicillin G (Verified Allergy, Severe, Rash, 11/17/17) tigecycline (Verified Allergy, Severe, Rash, 11/17/17) Sulfa (Sulfonamide Antibiotics) (Verified Allergy, Unknown, Rash, 11/17/17) clindamycin (Verified Allergy, Unknown, Nausea/Vomiting, 11/17/17) Past Medical History DM, hypothyroidism, PNP, autoimmune hepatitis, cirrhosis, ascites, pleural effusions, HTN, Hx gastritis, CKD, deafness in left ear, lonstanding use of steroids, longstanding use of insulin. Past Surgical History hysterectomy, appendectomy, multiple paracentesis and thoracocentesis Active Ordered Medications Current Medications Medications (Trade) Dose Ordered Sig/Miranda Route Start Time Stop Time Status Last Admin (Zofran Inj) 4 mg Q8HR PRN IV PUSH 11/24/17 12:45 11/29/17 17:39 (Roxicodone) 5 mg Q6H PRN PO 11/24/17 13:45 (Norvasc) 2.5 mg DAILY PO 11/25/17 09:00 11/30/17 09:10 (Catapres) 0.1 mg BID PO 11/24/17 21:00 11/30/17 09:09 (Xalatan 0.005% Opth Soln) 1 drop HS EACH EYE 11/24/17 21:00 11/29/17 22:01 (Synthroid) 88 mcg DAILY@0600 PO 11/25/17 06:00 11/30/17 06:14 (Purinethol) 50 mg DAILY PO 11/25/17 09:00 11/30/17 09:09 (Protonix) 40 mg DAILY PO 11/25/17 09:00 11/30/17 09:09 (Deltasone) 10 mg DAILY PO 11/25/17 09:00 11/30/17 09:09 (Zoloft) 50 mg DAILY PO 11/25/17 09:00 11/30/17 09:07 (Lactulose Liq) 30 ml QID PO 11/24/17 13:45 11/30/17 13:00 (Mycostatin Liq) 5 ml QID SWISH-SWAL 11/26/17 13:00 11/30/17 13:00 (Reglan Inj) 5 mg Q8HR IV PUSH 11/26/17 14:00 11/30/17 14:05 (NS Flush) 2 ml BID IV FLUSH 11/29/17 09:00 11/30/17 09:10 (NS Flush) 2 ml UNSCH PRN IV FLUSH 11/29/17 02:15 (D50w (Vial) Inj) 50 ml UNSCH PRN IV PUSH 11/29/17 13:30 (Glucagon Inj) 1 mg UNSCH PRN OTHER 11/29/17 13:30 (NovoLOG SUPPLEMENTAL SCALE) 1 ACHS SLIDING SCALE SQ 11/29/17 17:00 11/30/17 07:57 (Levemir Inj) 10 units DAILY SQ 11/30/17 12:30 11/30/17 12:30 Family History She is an only [place] and has a family history of CAD in her mother, maternal grandmother and maternal grandfather. Her father was a smoker and from lung cancer. 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 She moved to [place] to be next to her only next of kin which is her daughter. She denies a history of smoking, drinking or illicit drug use. Physical Exam Vital Signs Vital Signs Date Time Temp Pulse Resp B/P (MAP) Pulse Ox O2 Delivery O2 Flow Rate FiO2 11/30/17 11:00 93 11/30/17 11:00 98.3 74 16 102/60 (74) 97 11/30/17 07:00 98.3 93 16 130/63 (85) 96 11/30/17 07:00 93 11/30/17 04:00 98.1 76 18 126/65 (85) 96 11/30/17 04:00 76 11/30/17 00:00 72 11/30/17 00:00 98.5 72 18 115/64 (81) 99 11/29/17 20:00 79 11/29/17 19:45 98.4 80 18 124/67 (86) 98 Physical Exam GENERAL: This is pleasant thin frail woman. She is a soft spoken good historian in no apparent distress. SKIN: No rashes, ecchymoses or lesions. Cool and dry. HEAD: Atraumatic. Normocephalic. No temporal or scalp tenderness. No [place] Sign. EYES: Pupils equal round. Extraocular motions intact. No scleral icterus. No injection or drainage. ENT: Nose without bleeding, purulent drainage or septal hematoma. Airway patent. NECK: Trachea midline. No JVD or lymphadenopathy. Supple, nontender, no meningeal signs. Thyroid is not enlarged. She has good carotid pulses and no bruits. CARDIOVASCULAR: Regular rate and rhythm without gallops or rubs. She does have a holosystolic murmur at the lower left parasternal border. RESPIRATORY: Clear to auscultation in the upper lung bright but she does have bilateral fine crepitations at both bases. No wheezes, rales, or rhonchi. GASTROINTESTINAL: Abdomen soft, non-tender, nondistended. No guarding. She does have ascites. MUSCULOSKELETAL: Extremities without clubbing, cyanosis, or edema. She is frail. No joint tenderness, effusion, or edema noted. No calf tenderness. Negative Homans sign bilaterally. NEUROLOGICAL: Awake and alert. Cranial nerves II through XII grossly intact. Motor and sensory grossly within normal limits. Laboratory Laboratory Tests Test 11/30/17 03:30 White Blood Count 5.5 Red Blood Count 3.24 Hemoglobin 10.5 Hematocrit 31.5 Mean Corpuscular Volume 97.3 Mean Corpuscular Hemoglobin 32.3 Mean Corpuscular Hemoglobin Concent 33.2 Red Cell Distribution Width 18.0 Platelet Count 152 Mean Platelet Volume 8.9 Neutrophils (%) (Auto) 73.8 Lymphocytes (%) (Auto) 16.9 Monocytes (%) (Auto) 8.3 Eosinophils (%) (Auto) 0.7 Basophils (%) (Auto) 0.3 Neutrophils # (Auto) 4.1 Lymphocytes # (Auto) 0.9 Monocytes # (Auto) 0.5 Eosinophils # (Auto) 0.0 Basophils # (Auto) 0.0 CBC Comment DIFF FINAL Differential Comment Blood Urea Nitrogen 58 Creatinine 1.43 Random Glucose 232 Calcium Level 8.3 Sodium Level 135 Potassium Level 5.7 Chloride Level 103 Carbon Dioxide Level 21.8 Anion Gap 10 Estimat Glomerular Filtration Rate 37 Result Diagram: 11/30/17 03311/30/17329 Assessment and Plan Problem List: (1) Diabetes mellitus ICD Codes: E11.9 - Type 2 diabetes mellitus without complications Status: Acute (2) Hypothyroidism ICD Codes: E03.9 - Hypothyroidism, unspecified Status: Chronic (3) Renal insufficiency ICD Codes: N28.9 - Disorder of kidney and ureter, unspecified (4) liver cirhhsois (5) Hypertension ICD Codes: I10 - Essential (primary) hypertension Status: Chronic (6) Nausea & vomiting ICD Codes: R11.2 - Nausea with vomiting, unspecified Assessment and Plan Diabetes Uncontrolled Nausea and Vomiting Hypothyroidism Cirrhosis Peripheral Neuropathy Currently in her case recommend a target blood glucose of about 150 mg/dl due to her poor intake as well as her presumptive decrease in hepatic gluconeogenesis capability. She has been on clear liquids. Recommend to give her premeal insulin based on her liquid carb intake in the form of her meal replacement. Also recommend to divide the Levemir in 2 dosages a day which will give more manoeuvrability in case of hypoglycemia. Nutritional assessment reviewed. Patient has been ordered clear liquids and getting one vanilla Glucerna shake TID which provides 26 grams of carbohydrates. Will adjust Premeal insulin to 1 units TID AC when capillary blood glucose is between 80 and 150 and 2 units plus the low dose corrective scale when pre-meal capillary blood glucose levels are 150 mg/dl or more. Otherwise once she is discharged highly recommend a Freestyle Ingrid which will allow her to do far more monitoring seen her widely fluctuating blood glucose levels as well as her risk of hypoglycemia. Thank you for the opportunity to participate in the medical management of this nice lady. [place] taken to write the orders and will follow with you. Edi Tony MD Nov 30, 2017 16:06
[2017-11-30] MEDS: INSULIN ASPART 1,000 UNITS/10 ML VIAL SQ SCH ×2 (17:00→17:12)
[2017-11-30] MEDS: LATANOPROST 0.005% OPHT SOLN 2.5 ML BTL EACH EYE SCH (21:40)
[2017-11-30] MEDS: ONDANSETRON HCL 4 MG/2 ML VIAL IV PUSH PRN (22:08)
[2017-12-01 03:00] VITALS: BP 123/68; PULSE 76; RESP 16; TEMP 99.4; O2SAT 98
[2017-12-01] MEDS: METOCLOPRAMIDE HCL 10 MG/2 ML VIAL IV PUSH SCH ×3 (06:42→21:08)
[2017-12-01] MEDS: LEVOTHYROXINE SODIUM 88 MCG TAB PO SCH (06:42)
[2017-12-01 07:00] VITALS: BP 124/71; PULSE 72; PULSE 73; RESP 16; TEMP 98.7; O2SAT 95
[2017-12-01] MEDS: INSULIN ASPART 1,000 UNITS/10 ML VIAL SQ SCH ×6 (07:46→18:03)
[2017-12-01] MEDS: INSULIN DETEMIR 100 UNITS/ML VIAL SQ SCH ×3 (08:04→21:09)
[2017-12-01] MEDS: INSULIN ASPART SUPPLEMENTAL SCALE SQ SCH ×4 (08:05→20:56)
[2017-12-01] MEDS: LACTULOSE SYRUP 20 GM/30 ML CUP PO SCH ×4 (09:00→21:00)
[2017-12-01] MEDS: PANTOPRAZOLE SOD 40 MG DELAYED RELEASE TAB PO SCH (09:02)
[2017-12-01] MEDS: SERTRALINE HCL 50 MG TAB PO SCH (09:02)
[2017-12-01] MEDS: predniSONE 10 MG TAB PO SCH (09:02)
[2017-12-01] MEDS: SODIUM CHLORIDE FLUSH BID IV FLUSH SCH ×2 (09:02→21:08)
[2017-12-01] MEDS: NYSTATIN SUSP 500,000 U/5 ML CUP SWISH-SWAL SCH ×4 (09:03→21:08)
[2017-12-01] MEDS: amLODIPine BESYLATE 5 MG TAB PO SCH (09:03)
[2017-12-01] MEDS: cloNIDine HCL 0.1 MG TAB PO SCH ×2 (09:03→21:08)
[2017-12-01] MEDS: MERCAPTOPURINE 50 MG TAB PO SCH (09:10)
--- NOTE | 2017-12-01 09:10 | HHI.PR ---
Subjective Remarks Follow-up severe gastroparesis/intractable nausea and vomiting/labile blood glucose December 01, 2017-patient seen and examined, still complained of nausea without any emesis this a.m. Blood glucose labile Objective Vitals Vital Signs Date Time Temp Pulse Resp B/P (MAP) Pulse Ox O2 Delivery O2 Flow Rate FiO2 12/01/17 07:00 95 Room Air 12/01/17 07:00 73 12/01/17 07:00 98.7 72 16 124/71 (88) 95 12/01/17 03:00 99.4 76 16 123/68 (86) 98 12/01/17 03:00 76 11/30/17 23:00 98.3 78 18 111/74 (86) 97 11/30/17 23:00 78 11/30/17 19:00 78 11/30/17 19:00 98.5 78 18 116/66 (83) 97 11/30/17 16:00 98.5 79 16 109/69 (82) 97 11/30/17 15:00 80 11/30/17 11:00 93 11/30/17 11:00 98.3 74 16 102/60 (74) 97 I/O 11/30/17 11/30/17 11/30/17 12/01/17 12/01/17 12/01/17 07:00 15:00 23:00 07:00 15:00 23:00 Intake Total 240 ml 1600 ml 240 ml Output Total 350 ml 750 ml 500 ml Balance -110 ml 850 ml -260 ml Intake Oral 240 ml 1600 ml 240 ml Output Urine Total 350 ml 750 ml 500 ml # Bowel Movements 0 0 1 Result Diagram: 11/30/17 0330 11/30/17 0330 Imaging Last Impressions Cyst Biopsy Asp-Paracentesis US 11/28/17 0000 Signed Impressions: Service Date/Time: Tuesday, November 28, 2017 11:25 - CONCLUSION: Uncomplicated ultrasound guided paracentesis. Idris Dumas MD Barium Swallow X-Ray 11/25/17 0000 Signed Impressions: Service Date/Time: Saturday, November 25, 2017 12:51 - CONCLUSION: No obstructing mass. Marked presbyesophagus. Marco Chaudhari MD FACR Chest X-Ray 11/24/17 0947 Signed Impressions: Service Date/Time: Friday, November 24, 2017 09:55 - CONCLUSION: No acute disease. Dejan Trejo MD Objective Remarks GENERAL: NAD SKIN: Warm and dry. HEAD: Normocephalic. EYES: No scleral icterus. No injection or drainage. NECK: Supple, trachea midline. No JVD or lymphadenopathy. CARDIOVASCULAR: Regular rate and rhythm without murmurs, gallops, or rubs. RESPIRATORY: Breath sounds equal bilaterally. No accessory muscle use. GASTROINTESTINAL: Abdomen soft, non-tender, nondistended. MUSCULOSKELETAL: No cyanosis, or edema. BACK: Nontender without obvious deformity. No CVA tenderness. Procedures EGD A/P Problem List: (1) Hypoglycemia ICD Code: E16.2 - Hypoglycemia, unspecified (2) Dehydration ICD Code: E86.0 - Dehydration Assessment and Plan 67-year-old female with Intractable nausea/vomiting/ dehydration status post EGD 11/26, Esophageal Varices grade 1, Hiatal hernia, Barium Swallow, On Protonix, Reglan to continue 5 mg TID PRN, Nystatin 5 ml swish and swallow, Follow up with Doctor Lowell after DC. Dysphagia. GI consulted; s/p EGD on 11/26 with Portal gastropathy/ gastritis antrum-biopsy duodenum normal-biopsy white deposits r/o elvin-no biopsy or dilatation done due to presence of esophageal varices esophageal varices grade 1 Diabetes mellitus labile with hypoglycemic episode and persistent hyperglycemia Labile BG off Insulin drip, currently on Levemir 5 units Q12H and Aspart 2 units TID along with ISS Appreciate input from endocrinology Autoimmune hepatitis/ cirrhosis: abdominal distention is worse- continue lactulose and prednisone- hold Aldactone for now due to renal insufficiency- consult IR for therapeutic paracentesis. Hypertension: Continue Norvasc and clonidine- CKD; hold Aldactone for now- will monitor renal function. Improving condition. DVT prophylaxis with SCD's Dejan Pereira MD Dec 01, 2017 09:10
[2017-12-01] MEDS: ONDANSETRON HCL 4 MG/2 ML VIAL IV PUSH PRN (09:39)
[2017-12-01 11:00] VITALS: BP 111/71; PULSE 73; PULSE 74; RESP 16; TEMP 97.5; O2SAT 97
[2017-12-01 12:21] LABS: BICARBONATE 21.6 MEQ/L (21.0-32.0); CALCIUM 8.4 MG/DL (8.5-10.1); CREATININE 1.74 MG/DL (0.50-1.00)
[2017-12-01 15:51] VITALS: BP 121/73; PULSE 75; RESP 16; TEMP 97.8; O2SAT 97
--- NOTE | 2017-12-01 19:59 | HHI.PR ---
Subjective Remarks the patient has been doing better per her report as it pertains to her nausea. She has been able to keep her food down today. She is still on clear liquids but per her report it seems she has not been getting the Glucerna shakes TID as before. Her blood sugars have been fluctuating with some post prandial hyperglycemic component. Otherwise she has not had hypoglycemic events. Objective Vital Signs Date Time Temp Pulse Resp B/P (MAP) Pulse Ox O2 Delivery O2 Flow Rate FiO2 12/01/17 15:51 75 12/01/17 15:51 97.8 75 16 121/73 (89) 97 12/01/17 11:00 74 12/01/17 11:00 97.5 73 16 111/71 (84) 97 12/01/17 07:00 95 Room Air 12/01/17 07:00 73 12/01/17 07:00 98.7 72 16 124/71 (88) 95 12/01/17 03:00 99.4 76 16 123/68 (86) 98 12/01/17 03:00 76 11/30/17 23:00 98.3 78 18 111/74 (86) 97 11/30/17 23:00 78 I/O 11/30/17 11/30/17 11/30/17 12/01/17 12/01/17 12/01/17 07:00 15:00 23:00 07:00 15:00 23:00 Intake Total 240 ml 1600 ml 240 ml 480 ml 480 ml Output Total 350 ml 750 ml 500 ml 300 ml Balance -110 ml 850 ml -260 ml 180 ml 480 ml Intake Oral 240 ml 1600 ml 240 ml 480 ml 480 ml Output Urine Total 350 ml 750 ml 500 ml 300 ml # Voids 2 # Bowel Movements 0 0 1 1 1 Result Diagram: 11/30/17 0330 12/01/17 1127 Procedures EGD Other Results Capillary blood glucose readings reviewed. Assessment and Plan Problem List: (1) Diabetes mellitus ICD Codes: E11.9 - Type 2 diabetes mellitus without complications Status: Acute (2) Hypothyroidism ICD Codes: E03.9 - Hypothyroidism, unspecified Status: Chronic (3) Renal insufficiency ICD Codes: N28.9 - Disorder of kidney and ureter, unspecified (4) liver cirhhsois (5) Hypertension ICD Codes: I10 - Essential (primary) hypertension Status: Chronic (6) Nausea & vomiting ICD Codes: R11.2 - Nausea with vomiting, unspecified Assessment and Plan Diabetes Uncontrolled Nausea and Vomiting Hypothyroidism Cirrhosis Peripheral Neuropathy Currently in her case recommend to keep her basal insulin the same and to adjust her premeal insulin to 1 units TID AC when capillary blood glucose is between 80 and 100 and 2 units plus the low dose corrective scale when pre-meal capillary blood glucose levels are 100 mg/dl or more. Otherwise once she is discharged highly recommend a Freestyle Ingrid which I have discussed with her in detail in today. this will allow her to monitor her blood glucose almost on a continuous basis as needed and can provide very usefull insights into her blood glucose behavior especially seen her compromised liver reserve and hence her decreased capacity for gluconeogenesis. . Thank you for the opportunity to participate in the medical management of this nice lady. [place] taken to write the orders and will follow with you. Edi Tony MD Dec 01, 2017 19:59
[2017-12-01 20:00] VITALS: BP 116/69; PULSE 80; RESP 18; TEMP 98.2; O2SAT 97
[2017-12-01 20:07] VITALS: PULSE 76
[2017-12-01] MEDS: LATANOPROST 0.005% OPHT SOLN 2.5 ML BTL EACH EYE SCH (21:00)
[2017-12-02] VITALS (22 sets, daily range): BP systolic 105–146; BP diastolic 59–90; PULSE 58–92; RESP 16–20; TEMP 98–98.5; O2SAT 97–98
[2017-12-02] MEDS: LEVOTHYROXINE SODIUM 88 MCG TAB PO SCH (06:39)
[2017-12-02] MEDS: METOCLOPRAMIDE HCL 10 MG/2 ML VIAL IV PUSH SCH ×3 (06:40→21:02)
[2017-12-02 07:09] LABS: BICARBONATE 19.2 MEQ/L (21.0-32.0); CALCIUM 8.4 MG/DL (8.5-10.1); CREATININE 1.56 MG/DL (0.50-1.00)
[2017-12-02] MEDS: INSULIN ASPART SUPPLEMENTAL SCALE SQ SCH ×4 (08:00→21:02)
[2017-12-02] MEDS: INSULIN ASPART 1,000 UNITS/10 ML VIAL SQ SCH ×6 (08:00→17:00)
[2017-12-02] MEDS: cloNIDine HCL 0.1 MG TAB PO SCH ×2 (08:45→21:01)
[2017-12-02] MEDS: NYSTATIN SUSP 500,000 U/5 ML CUP SWISH-SWAL SCH ×3 (08:45→21:01)
[2017-12-02] MEDS: LACTULOSE SYRUP 20 GM/30 ML CUP PO SCH ×3 (08:45→21:00)
[2017-12-02] MEDS: predniSONE 10 MG TAB PO SCH (08:46)
[2017-12-02] MEDS: PANTOPRAZOLE SOD 40 MG DELAYED RELEASE TAB PO SCH (08:46)
[2017-12-02] MEDS: amLODIPine BESYLATE 5 MG TAB PO SCH (08:46)
[2017-12-02] MEDS: SERTRALINE HCL 50 MG TAB PO SCH (08:46)
[2017-12-02] MEDS: INSULIN DETEMIR 100 UNITS/ML VIAL SQ SCH ×2 (08:47→21:03)
[2017-12-02] MEDS: MERCAPTOPURINE 50 MG TAB PO SCH (08:47)
[2017-12-02] MEDS: SODIUM CHLORIDE FLUSH BID IV FLUSH SCH ×2 (08:52→21:03)
[2017-12-02 09:12] LABS: AUTOMATED NEUTROPHIL # 4.6 TH/MM3 (1.8-7.7); BASOPHIL % 0.4 % (0.0-2.0); EOSINOPHIL # 0.1 TH/MM3 (0-0.4); EOSINOPHIL % 1.2 % (0.0-4.0); HEMATOCRIT 33.9 % (35.0-46.0); HEMOGLOBIN 11.3 GM/DL (11.6-15.3); LYMPH % 18.8 % (9.0-44.0); LYMPHOCYTE # 1.2 TH/MM3 (1.0-4.8); MEAN CELL VOLUME 97.6 FL (80.0-100.0); MEAN CORPUSCULAR HEMOGLOBIN 32.6 PG (27.0-34.0); MEAN CORPUSCULAR HGB CONC 33.4 % (32.0-36.0); MEAN PLATELET VOLUME 8.6 FL (7.0-11.0); MONO % 7.5 % (0.0-8.0); MONOCYTE # 0.5 TH/MM3 (0-0.9); NEUT % 72.1 % (16.0-70.0); PLATELET COUNT 216 TH/MM3 (150-450); RED BLOOD COUNT 3.47 MIL/MM3 (4.00-5.30); RED CELL DISTRIBUTION WIDTH 17.2 % (11.6-17.2); WHITE BLOOD COUNT 6.4 TH/MM3 (4.0-11.0)
[2017-12-02] MEDS: ONDANSETRON HCL 4 MG/2 ML VIAL IV PUSH PRN (09:53)
--- NOTE | 2017-12-02 17:49 | HHI.PR ---
Subjective Remarks Patient states still feeling nauseous, vomited x1 in am. Denies cp/sob Objective Vitals Vital Signs Date Time Temp Pulse Resp B/P (MAP) Pulse Ox O2 Delivery O2 Flow Rate FiO2 12/02/17 15:00 78 12/02/17 11:20 98.2 85 16 146/90 (108) 98 12/02/17 11:00 80 12/02/17 08:00 Room Air 12/02/17 07:15 98.1 71 16 116/71 (86) 98 12/02/17 07:00 70 12/02/17 04:00 98.5 67 18 108/59 (75) 97 12/02/17 00:06 69 12/02/17 00:00 98.2 68 18 105/60 (75) 97 12/01/17 20:07 76 12/01/17 20:00 98.2 80 18 116/69 (85) 97 I/O 12/01/17 12/01/17 12/01/17 12/02/17 12/02/17 12/02/17 07:00 15:00 23:00 07:00 15:00 23:00 Intake Total 240 ml 480 ml 480 ml Output Total 500 ml 300 ml 150 ml Balance -260 ml 180 ml 480 ml -150 ml Intake Oral 240 ml 480 ml 480 ml Output Urine Total 500 ml 300 ml 150 ml # Voids 2 # Bowel Movements 1 1 1 Result Diagram: 12/02/17 0851 12/02/17 0550 Objective Remarks GENERAL: NAD SKIN: Warm and dry. HEAD: Normocephalic. EYES: No scleral icterus. No injection or drainage. NECK: Supple, trachea midline. No JVD or lymphadenopathy. CARDIOVASCULAR: Regular rate and rhythm without murmurs, gallops, or rubs. RESPIRATORY: Breath sounds equal bilaterally. No accessory muscle use. GASTROINTESTINAL: Abdomen soft, non-tender, nondistended. MUSCULOSKELETAL: No cyanosis, or edema. BACK: Nontender without obvious deformity. No CVA tenderness. Procedures EGD Medications and IVs Current Medications Medications (Trade) Dose Ordered Sig/Miranda Route Start Time Stop Time Status Last Admin (Zofran Inj) 4 mg Q8HR PRN IV PUSH 11/24/17 12:45 12/02/17 09:53 (Roxicodone) 5 mg Q6H PRN PO 11/24/17 13:45 (Norvasc) 2.5 mg DAILY PO 11/25/17 09:00 12/02/17 08:46 (Catapres) 0.1 mg BID PO 11/24/17 21:00 12/02/17 21:01 (Xalatan 0.005% Opth Soln) 1 drop HS EACH EYE 11/24/17 21:00 12/02/17 21:03 (Synthroid) 88 mcg DAILY@0600 PO 11/25/17 06:00 12/02/17 06:39 (Purinethol) 50 mg DAILY PO 11/25/17 09:00 12/02/17 08:47 (Protonix) 40 mg DAILY PO 11/25/17 09:00 12/02/17 08:46 (Deltasone) 10 mg DAILY PO 11/25/17 09:00 12/02/17 08:46 (Zoloft) 50 mg DAILY PO 11/25/17 09:00 12/02/17 08:46 (Lactulose Liq) 30 ml QID PO 11/24/17 13:45 12/02/17 13:05 (Mycostatin Liq) 5 ml QID SWISH-SWAL 11/26/17 13:00 12/02/17 21:01 (NS Flush) 2 ml BID IV FLUSH 11/29/17 09:00 12/02/17 21:03 (NS Flush) 2 ml UNSCH PRN IV FLUSH 11/29/17 02:15 (D50w (Vial) Inj) 50 ml UNSCH PRN IV PUSH 11/29/17 13:30 (Glucagon Inj) 1 mg UNSCH PRN OTHER 11/29/17 13:30 (NovoLOG SUPPLEMENTAL SCALE) 1 ACHS SLIDING SCALE SQ 11/29/17 17:00 12/02/17 21:02 (Levemir Inj) 5 units Q12HR SQ 12/01/17 08:00 12/02/17 21:03 (NovoLOG INJ) 1 units TIDAC SQ 11/30/17 17:00 (NovoLOG INJ) 2 units TIDAC SQ 11/30/17 17:00 12/02/17 17:00 (Reglan Inj) 10 mg Q8HR IV PUSH 12/02/17 22:00 12/02/17 21:02 A/P Problem List: (1) Hypoglycemia ICD Code: E16.2 - Hypoglycemia, unspecified (2) Dehydration ICD Code: E86.0 - Dehydration Assessment and Plan 67-year-old female with Intractable nausea/vomiting/ dehydration status post EGD 11/26, Esophageal Varices grade 1, Hiatal hernia, Barium Swallow, On Protonix, Reglan to continue 5 mg TID PRN, Nystatin 5 ml swish and swallow, Follow up with Doctor Lowell after DC. 12/02 Patient still with nausea. Increase dose of Reglan to 10 mg po tid. Continue Zofran as needed for nausea or vomiting. Dysphagia. GI consulted; s/p EGD on 11/26 with Portal gastropathy/ gastritis antrum-biopsy duodenum normal-biopsy white deposits r/o elvin-no biopsy or dilatation done due to presence of esophageal varices esophageal varices grade 1 Diabetes mellitus labile with hypoglycemic episode and persistent hyperglycemia Labile BG off Insulin drip, currently on Levemir 5 units Q12H and Aspart 2 units TID along with ISS Appreciate input from endocrinology Autoimmune hepatitis/ cirrhosis: abdominal distention is worse- continue lactulose and prednisone- hold Aldactone for now due to renal insufficiency- SP US guided paracentesis on 11/28. 12/02 Start patient on lasix and spironolactone. Hypertension: Continue Norvasc and clonidine- BP stable. Monitor vital signs OSVALDO on CKD stage III; OSVALDO resolved. Creatinine peaked at 2 Aldactone held due to worsening renal function. Upon review of records baseline creatinine at 1.4 to 1.5. Creatinine likely at baseline now. Will resume diuretics. DVT prophylaxis with SCD's Discharge Planning Dc pending improvement of intractable nausea. John Giron MD Dec 02, 2017 17:49
[2017-12-02] MEDS: LATANOPROST 0.005% OPHT SOLN 2.5 ML BTL EACH EYE SCH (21:03)
[2017-12-03] VITALS (29 sets, daily range): BP systolic 91–123; BP diastolic 57–71; PULSE 66–115; RESP 17–20; TEMP 97.7–98.9; O2SAT 97–99
[2017-12-03] MEDS: LEVOTHYROXINE SODIUM 88 MCG TAB PO SCH (05:24)
[2017-12-03] MEDS: METOCLOPRAMIDE HCL 10 MG/2 ML VIAL IV PUSH SCH ×3 (05:25→20:53)
[2017-12-03 06:40] LABS: AUTOMATED NEUTROPHIL # 3.5 TH/MM3 (1.8-7.7); BASOPHIL % 0.4 % (0.0-2.0); EOSINOPHIL # 0.1 TH/MM3 (0-0.4); EOSINOPHIL % 1.1 % (0.0-4.0); HEMOGLOBIN 10.7 GM/DL (11.6-15.3); LYMPH % 21.2 % (9.0-44.0); LYMPHOCYTE # 1.1 TH/MM3 (1.0-4.8); MEAN CELL VOLUME 97.4 FL (80.0-100.0); MEAN CORPUSCULAR HEMOGLOBIN 32.6 PG (27.0-34.0); MEAN CORPUSCULAR HGB CONC 33.5 % (32.0-36.0); MEAN PLATELET VOLUME 8.5 FL (7.0-11.0); MONO % 8.4 % (0.0-8.0); MONOCYTE # 0.4 TH/MM3 (0-0.9); NEUT % 68.9 % (16.0-70.0); PLATELET COUNT 183 TH/MM3 (150-450); RED BLOOD COUNT 3.28 MIL/MM3 (4.00-5.30); RED CELL DISTRIBUTION WIDTH 16.9 % (11.6-17.2); WHITE BLOOD COUNT 5.1 TH/MM3 (4.0-11.0)
[2017-12-03] MEDS: INSULIN ASPART 1,000 UNITS/10 ML VIAL SQ SCH ×6 (08:00→17:00)
[2017-12-03] MEDS: INSULIN ASPART SUPPLEMENTAL SCALE SQ SCH ×4 (08:00→21:04)
[2017-12-03] MEDS: MERCAPTOPURINE 50 MG TAB PO SCH (08:49)
[2017-12-03] MEDS: SERTRALINE HCL 50 MG TAB PO SCH (08:50)
[2017-12-03] MEDS: PANTOPRAZOLE SOD 40 MG DELAYED RELEASE TAB PO SCH (08:50)
[2017-12-03] MEDS: NYSTATIN SUSP 500,000 U/5 ML CUP SWISH-SWAL SCH ×4 (08:50→20:53)
[2017-12-03] MEDS: SPIRONOLACTONE 25 MG TAB PO SCH (08:50)
[2017-12-03] MEDS: FUROSEMIDE 40 MG TAB PO SCH (08:50)
[2017-12-03] MEDS: amLODIPine BESYLATE 5 MG TAB PO SCH (08:50)
[2017-12-03] MEDS: cloNIDine HCL 0.1 MG TAB PO SCH ×2 (08:50→20:55)
[2017-12-03] MEDS: predniSONE 10 MG TAB PO SCH (08:50)
[2017-12-03] MEDS: LACTULOSE SYRUP 20 GM/30 ML CUP PO SCH ×4 (08:51→20:52)
[2017-12-03] MEDS: SODIUM CHLORIDE FLUSH BID IV FLUSH SCH ×2 (08:51→20:53)
[2017-12-03] MEDS: INSULIN DETEMIR 100 UNITS/ML VIAL SQ SCH ×2 (09:00→21:19)
[2017-12-03 10:55] LABS: BICARBONATE 23.6 MEQ/L (21.0-32.0); CALCIUM 8.1 MG/DL (8.5-10.1); CREATININE 1.47 MG/DL (0.50-1.00)
[2017-12-03] MEDS ORDERED: DEXTROSE 50% IN WATER 50 ML SYRINGE IV PUSH ONE (14:00)
[2017-12-03] MEDS ORDERED: INSULIN HUMAN REGULAR 1,000 UNITS/10 ML VIAL IV PUSH ONE (14:00)
--- NOTE | 2017-12-03 14:02 | HHI.PR ---
Subjective Remarks Patient feels fairly bloated and distended Denies sob but is really uncomfortable Denies cp Patient states nausea is much improved and has not vomited Objective Vitals Vital Signs Date Time Temp Pulse Resp B/P (MAP) Pulse Ox O2 Delivery O2 Flow Rate FiO2 12/03/17 11:30 98.1 71 18 91/57 (68) 97 12/03/17 08:30 97.7 77 18 119/69 (86) 99 12/03/17 08:30 99 Room Air 12/03/17 07:01 67 12/03/17 06:00 70 12/03/17 05:00 70 12/03/17 04:00 98.6 78 20 100/58 (72) 97 12/03/17 04:00 73 12/03/17 04:00 Room Air 12/03/17 03:00 76 12/03/17 02:00 76 12/03/17 01:00 74 12/03/17 00:00 98.9 77 20 123/71 (88) 97 12/03/17 00:00 77 12/02/17 23:00 80 12/02/17 22:00 76 12/02/17 21:00 82 12/02/17 20:00 83 12/02/17 20:00 Room Air 12/02/17 20:00 98.1 83 20 115/74 (88) 98 12/02/17 18:00 88 12/02/17 17:00 76 12/02/17 16:00 76 12/02/17 15:00 78 I/O 12/02/17 12/02/17 12/02/17 12/03/17 12/03/17 12/03/17 07:00 15:00 23:00 07:00 15:00 23:00 Intake Total 720 ml Output Total 150 ml 800 ml Balance -150 ml -80 ml Intake Oral 720 ml Output Urine Total 150 ml 800 ml # Voids 3 # Bowel Movements 2 Result Diagram: 12/03/17 0525 12/03/17 1011 Imaging Last Impressions Cyst Biopsy Asp-Paracentesis US 11/28/17 0000 Signed Impressions: Service Date/Time: Tuesday, November 28, 2017 11:25 - CONCLUSION: Uncomplicated ultrasound guided paracentesis. Idris Dumas MD Barium Swallow X-Ray 11/25/17 0000 Signed Impressions: Service Date/Time: Saturday, November 25, 2017 12:51 - CONCLUSION: No obstructing mass. Marked presbyesophagus. Marco Chaudhari MD FACR Chest X-Ray 11/24/17 0947 Signed Impressions: Service Date/Time: Friday, November 24, 2017 09:55 - CONCLUSION: No acute disease. Dejan Trejo MD Objective Remarks GENERAL: NAD SKIN: Warm and dry. HEAD: Normocephalic. EYES: No scleral icterus. No injection or drainage. NECK: Supple, trachea midline. No JVD or lymphadenopathy. CARDIOVASCULAR: Regular rate and rhythm without murmurs, gallops, or rubs. RESPIRATORY: Breath sounds equal bilaterally. No accessory muscle use. GASTROINTESTINAL: Abdomen soft, non-tender, nondistended. MUSCULOSKELETAL: No cyanosis, or edema. BACK: Nontender without obvious deformity. No CVA tenderness. Procedures EGD Medications and IVs Current Medications Medications (Trade) Dose Ordered Sig/Miranda Route Start Time Stop Time Status Last Admin (Zofran Inj) 4 mg Q8HR PRN IV PUSH 11/24/17 12:45 12/02/17 09:53 (Roxicodone) 5 mg Q6H PRN PO 11/24/17 13:45 (Norvasc) 2.5 mg DAILY PO 11/25/17 09:00 12/03/17 08:50 (Catapres) 0.1 mg BID PO 11/24/17 21:00 12/03/17 08:50 (Xalatan 0.005% Opth Soln) 1 drop HS EACH EYE 11/24/17 21:00 12/02/17 21:03 (Synthroid) 88 mcg DAILY@0600 PO 11/25/17 06:00 12/03/17 05:24 (Purinethol) 50 mg DAILY PO 11/25/17 09:00 12/03/17 08:49 (Protonix) 40 mg DAILY PO 11/25/17 09:00 12/03/17 08:50 (Deltasone) 10 mg DAILY PO 11/25/17 09:00 12/03/17 08:50 (Zoloft) 50 mg DAILY PO 11/25/17 09:00 12/03/17 08:50 (Lactulose Liq) 30 ml QID PO 4/17/18 13:45 12/02/17 13:05 (Mycostatin Liq) 5 ml QID SWISH-SWAL 11/26/17 13:00 12/03/17 18:00 (NS Flush) 2 ml BID IV FLUSH 11/29/17 09:00 12/03/17 08:51 (NS Flush) 2 ml UNSCH PRN IV FLUSH 11/29/17 02:15 (D50w (Vial) Inj) 50 ml UNSCH PRN IV PUSH 11/29/17 13:30 (Glucagon Inj) 1 mg UNSCH PRN OTHER 11/29/17 13:30 (NovoLOG SUPPLEMENTAL SCALE) 1 ACHS SLIDING SCALE SQ 11/29/17 17:00 12/03/17 12:00 (Levemir Inj) 5 units Q12HR SQ 12/01/17 08:00 12/03/17 09:00 (NovoLOG INJ) 1 units TIDAC SQ 11/30/17 17:00 (NovoLOG INJ) 2 units TIDAC SQ 11/30/17 17:00 12/03/17 12:00 (Reglan Inj) 10 mg Q8HR IV PUSH 12/02/17 22:00 12/03/17 14:03 (Lasix) 40 mg DAILY PO 12/03/17 09:00 12/03/17 08:50 (Aldactone) 25 mg DAILY PO 12/03/17 09:00 12/03/17 08:50 A/P Problem List: (1) Hypoglycemia ICD Code: E16.2 - Hypoglycemia, unspecified (2) Dehydration ICD Code: E86.0 - Dehydration Assessment and Plan 67-year-old female with Intractable nausea/vomiting/ dehydration status post EGD 11/26, Esophageal Varices grade 1, Hiatal hernia, Barium Swallow, On Protonix, Reglan to continue 5 mg TID PRN, Nystatin 5 ml swish and swallow, Follow up with Doctor Lowell after DC. 12/02 Patient still with nausea. Increase dose of Reglan to 10 mg po tid. Continue Zofran as needed for nausea or vomiting. 12/03 nausea much improved. Continue Reglan as above. Dysphagia. GI consulted; s/p EGD on 11/26 with Portal gastropathy/ gastritis antrum-biopsy duodenum normal-biopsy white deposits r/o elvin-no biopsy or dilatation done due to presence of esophageal varices esophageal varices grade 1 Diabetes mellitus labile with hypoglycemic episode and persistent hyperglycemia Labile BG off Insulin drip, currently on Levemir 5 units Q12H and Aspart 2 units TID along with ISS Appreciate input from endocrinology Autoimmune hepatitis/ cirrhosis/ Ascites: abdominal distention is worse- continue lactulose and prednisone- hold Aldactone for now due to renal insufficiency- SP US guided paracentesis on 11/28. 12/02 Start patient on lasix and spironolactone. 12/03 Patient with worsening ascites - will order a repeat US guided paracentesis prior to discharge. Hypertension: Continue Norvasc and clonidine- BP stable. Monitor vital signs OSVALDO on CKD stage III; OSVALDO resolved. Creatinine peaked at 2 Aldactone held due to worsening renal function. Upon review of records baseline creatinine at 1.4 to 1.5. Creatinine likely at baseline now. Will resume diuretics. DVT prophylaxis with SCD's Discharge Planning DC in am if stable after paracentesis. John Giron MD Dec 03, 2017 14:02
--- NOTE | 2017-12-03 17:26 | HHI.PR ---
Subjective Remarks The patient has not been eating today. Seh reprots she has no nausea but due to abdominal distention she has not been feeling like eating. Her blood sugars today have been better than yesterday with no incidence of hypoglycemia. Her blood sugars today have been up to now: 134 - 164 - 94 while yesterday she had blood glucose numbers of 105 - 180 - 183 - 232 mg/dl. She reports she is scheduled for a therapeutic paracentesis tomorrow. Objective Vital Signs Date Time Temp Pulse Resp B/P (MAP) Pulse Ox O2 Delivery O2 Flow Rate FiO2 12/03/17 16:01 98.0 77 18 116/68 (84) 98 12/03/17 11:30 98.1 71 18 91/57 (68) 97 12/03/17 08:30 97.7 77 18 119/69 (86) 99 12/03/17 08:30 99 Room Air 12/03/17 07:01 67 12/03/17 06:00 70 12/03/17 05:00 70 12/03/17 04:00 98.6 78 20 100/58 (72) 97 12/03/17 04:00 73 12/03/17 04:00 Room Air 12/03/17 03:00 76 12/03/17 02:00 76 12/03/17 01:00 74 12/03/17 00:00 98.9 77 20 123/71 (88) 97 12/03/17 00:00 77 12/02/17 23:00 80 12/02/17 22:00 76 12/02/17 21:00 82 12/02/17 20:00 83 12/02/17 20:00 Room Air 12/02/17 20:00 98.1 83 20 115/74 (88) 98 12/02/17 18:00 88 I/O 12/02/17 12/02/17 12/02/17 12/03/17 12/03/17 12/03/17 07:00 15:00 23:00 07:00 15:00 23:00 Intake Total 720 ml Output Total 150 ml 800 ml Balance -150 ml -80 ml Intake Oral 720 ml Output Urine Total 150 ml 800 ml # Voids 3 # Bowel Movements 2 Result Diagram: 12/03/17 0525 12/03/17 1011 Procedures EGD Other Results Blood glucose readings reviewed. Assessment and Plan Problem List: (1) Diabetes mellitus ICD Codes: E11.9 - Type 2 diabetes mellitus without complications Status: Acute (2) Hypothyroidism ICD Codes: E03.9 - Hypothyroidism, unspecified Status: Chronic (3) Renal insufficiency ICD Codes: N28.9 - Disorder of kidney and ureter, unspecified (4) liver cirhhsois (5) Hypertension ICD Codes: I10 - Essential (primary) hypertension Status: Chronic (6) Nausea & vomiting ICD Codes: R11.2 - Nausea with vomiting, unspecified Assessment and Plan Diabetes Uncontrolled Cirrhosis Currently will continue with the same management. Once she starts eating again will reassess the appropriateness of her regimen both basal and if she was to start eating again I will recommend to start the same dose of prandial insulin plus the correction. Thank you for the opportunity to participate in the medical management of this nice lady I will follow with you. Edi Tony MD Dec 03, 2017 17:26
[2017-12-03 17:33] LABS: INTERNATIONAL NORMALIZED RATIO 1.1 RATIO; PROTHROMBIN TIME - PATIENT 10.9 SEC (9.8-11.6)
[2017-12-03] MEDS ORDERED: SODIUM POLYSTYRENE SULFONATE SUSP 15 GM/60 ML CUP PO ONE (20:15)
[2017-12-03] MEDS: LATANOPROST 0.005% OPHT SOLN 2.5 ML BTL EACH EYE SCH (21:00)
[2017-12-03] MEDS: ONDANSETRON HCL 4 MG/2 ML VIAL IV PUSH PRN (23:46)
[2017-12-04] VITALS (21 sets, daily range): BP systolic 97–150; BP diastolic 51–86; PULSE 67–128; RESP 16–18; TEMP 98–99; O2SAT 96–99
[2017-12-04] MEDS: METOCLOPRAMIDE HCL 10 MG/2 ML VIAL IV PUSH SCH ×3 (05:30→22:10)
[2017-12-04] MEDS: LEVOTHYROXINE SODIUM 88 MCG TAB PO SCH (05:30)
[2017-12-04 06:00] LABS: ALBUMIN 2.2 GM/DL (3.4-5.0); ALKALINE PHOSPHATASE 585 U/L (45-117); ALT (GPT) 74 U/L (10-53); AST (GOT) 114 U/L (15-37); BICARBONATE 21.5 MEQ/L (21.0-32.0); BLOOD UREA NITROGEN 50 MG/DL (7-18); CALCIUM 8.4 MG/DL (8.5-10.1); CHLORIDE 101 MEQ/L (98-107); CREATININE 1.77 MG/DL (0.50-1.00); GLOMERULAR FILTRATION RATE 29 ML/MIN (>89); GLUCOSE,RANDOM 182 MG/DL (74-106); MAGNESIUM 2.2 MG/DL (1.5-2.5); PHOSPHORUS 3.7 MG/DL (2.5-4.9); SODIUM (NA) 135 MEQ/L (136-145); TOTAL BILIRUBIN ADULT 1.2 MG/DL (0.2-1.0); TOTAL PROTEIN 6.4 GM/DL (6.4-8.2)
[2017-12-04] MEDS: INSULIN ASPART 1,000 UNITS/10 ML VIAL SQ SCH ×6 (08:00→18:14)
[2017-12-04] MEDS: INSULIN ASPART SUPPLEMENTAL SCALE SQ SCH ×4 (08:00→20:04)
[2017-12-04] MEDS: INSULIN DETEMIR 100 UNITS/ML VIAL SQ SCH ×2 (09:00→20:09)
[2017-12-04] MEDS: NYSTATIN SUSP 500,000 U/5 ML CUP SWISH-SWAL SCH ×4 (09:00→20:02)
[2017-12-04] MEDS ORDERED: ALBUMIN 25% INJ 0 ML IV ONE (11:30)
[2017-12-04] MEDS ORDERED: PILL SPLITTER OTHER PRN (11:45)
--- NOTE | 2017-12-04 12:12 | RADRPT ---
EXAM DATE/TIME: 12/04/2017 10:00 [facility] COMPARISON: EXTERNAL COMPARISON: US GUIDED ABD PARACENTESIS, November 28, 2017, 11:25. Edmar Casillas, MR ABDOMEN W/ & W/O, Jul 16, US ABDOMEN LOWER LIMITED, July 12, 2015. INDICATIONS : Ascites. MEDICAL HISTORY : Hypothyroidism. Hypercholesterolemia. Cirrhosis. HTN. GERD. Diabetes. Hepatitis. Ascites. SURGICAL HISTORY : Appendectomy. Hysterectomy. Liver biopsy. Paracentesis. ENCOUNTER: Sequela ACUITY: 1 week PAIN SCORE: 4/10 LOCATION: Right lower quadrant FLUID: Total volume of 5800 cc of clear, yellow fluid was removed. Fluid was discarded. Paracentesis was therapeutic only. Post procedure scanning reveals no hematoma or other complication. TECHNIQUE: 1. Ultrasound guidance for abdominal paracentesis. 2. Paracentesis. The risks, benefits, and alternatives to ultrasound guided paracentesis were explained to the patient in detail including the risk of bleeding and infection. Written and verbal informed consent was obt ained. With the patient on the ultrasound table, ultrasound imaging was used to select the most appropriate approach for paracentesis. Overlying skin was prepped and draped in the usual sterile fashion and wi th a local anesthetic, a dermatotomy was made with an 11 blade scalpel. A 6 [place] Edz-D-[id number] ca theter was introduced into the peritoneal cavity and fluid was collected. The patient tolerated the procedure well and left the ultrasound suite in stable condition. CONCLUSION: Uncomplicated ultrasound guided paracentesis. Lex Higuera MD on December 04, 2017 at 12:09 Board Certified Radiologist. This report was verified electronically.
[2017-12-04] MEDS ORDERED: ALBUMIN HUMAN 25% 12.5GM-W/25GM FOR 37.5GM IV ONE (12:15)
[2017-12-04] MEDS ORDERED: ALBUMIN HUMAN 25% 25GM-W/12.5GM FOR 37.5GM IV ONE (12:15)
[2017-12-04] MEDS: FUROSEMIDE 40 MG TAB PO SCH (12:32)
[2017-12-04] MEDS: cloNIDine HCL 0.1 MG TAB PO SCH ×2 (12:32→20:02)
[2017-12-04] MEDS: SPIRONOLACTONE 25 MG TAB PO SCH (12:33)
[2017-12-04] MEDS: amLODIPine BESYLATE 5 MG TAB PO SCH (12:33)
[2017-12-04] MEDS: PANTOPRAZOLE SOD 40 MG DELAYED RELEASE TAB PO SCH (12:33)
[2017-12-04] MEDS: LACTULOSE SYRUP 20 GM/30 ML CUP PO SCH ×4 (12:33→20:04)
[2017-12-04] MEDS: predniSONE 10 MG TAB PO SCH (12:36)
[2017-12-04] MEDS: MERCAPTOPURINE 50 MG TAB PO SCH (12:36)
[2017-12-04] MEDS: SERTRALINE HCL 50 MG TAB PO SCH (12:37)
[2017-12-04] MEDS: ONDANSETRON HCL 4 MG/2 ML VIAL IV PUSH PRN (12:49)
[2017-12-04] MEDS: SODIUM CHLORIDE FLUSH BID IV FLUSH SCH ×2 (12:50→20:01)
[2017-12-04] MEDS ORDERED: LIDOCAINE HCL 1% PF 30 ML VIAL ONE (14:31)
--- NOTE | 2017-12-04 17:46 | HHI.PR ---
Subjective Remarks Pt feels better. s/p paracentesis. no nausea or vomiting. no abdominal pain Objective Vitals Vital Signs Date Time Temp Pulse Resp B/P (MAP) Pulse Ox O2 Delivery O2 Flow Rate FiO2 12/04/17 15:12 98.2 67 17 101/51 (68) 99 12/04/17 15:00 70 12/04/17 12:24 98.0 81 18 150/86 (107) 97 12/04/17 11:49 98.7 84 16 113/70 (84) 98 12/04/17 11:34 98.8 86 16 126/80 (95) 98 12/04/17 09:56 98.6 90 16 120/79 (93) 98 12/04/17 07:14 98.9 94 18 117/65 (82) 97 12/04/17 07:14 97 Room Air 12/04/17 07:00 94 12/04/17 06:00 95 12/04/17 05:00 98 12/04/17 04:08 99.0 118 17 108/67 (81) 96 12/04/17 04:00 101 12/04/17 04:00 102 12/04/17 02:00 104 12/04/17 01:00 128 12/04/17 00:56 98.4 128 18 97/55 (69) 97 12/04/17 00:00 104 12/04/17 00:00 104 12/03/17 23:44 98.8 115 18 109/68 (82) 97 12/03/17 23:00 102 12/03/17 22:00 100 12/03/17 21:00 94 12/03/17 20:43 98.8 87 17 109/66 (80) 97 12/03/17 20:43 97 Room Air 12/03/17 20:43 87 12/03/17 20:00 86 12/03/17 19:00 86 12/03/17 18:01 76 I/O 12/03/17 12/03/17 12/03/17 12/04/17 12/04/17 12/04/17 07:00 15:00 23:00 07:00 15:00 23:00 Intake Total 120 ml 240 ml 60 ml Output Total 600 ml 300 ml Balance -480 ml -60 ml 60 ml Intake Oral 120 ml 240 ml IV Total 60 ml Output Urine Total 600 ml 300 ml # Voids 3 3 # Bowel Movements 1 Result Diagram: 12/03/17 0525 12/04/17 0455 Imaging Last Impressions Cyst Biopsy Asp-Paracentesis US 12/04/17 0000 Signed Impressions: Service Date/Time: Monday, December 04, 2017 10:00 - CONCLUSION: Uncomplicated ultrasound guided paracentesis. Lex Higuera MD Barium Swallow X-Ray 11/25/17 0000 Signed Impressions: Service Date/Time: Saturday, November 25, 2017 12:51 - CONCLUSION: No obstructing mass. Marked presbyesophagus. Marco Chaudhari MD FACR Chest X-Ray 11/24/17 0947 Signed Impressions: Service Date/Time: Friday, November 24, 2017 09:55 - CONCLUSION: No acute disease. Dejan Trejo MD Objective Remarks GENERAL: NAD CARDIOVASCULAR: Regular rate and rhythm without murmurs RESPIRATORY: Breath sounds equal bilaterally. No accessory muscle use. GASTROINTESTINAL: Abdomen soft, non-tender, nondistended. MUSCULOSKELETAL: No edema. Procedures EGD A/P Problem List: (1) Hypoglycemia ICD Code: E16.2 - Hypoglycemia, unspecified (2) Dehydration ICD Code: E86.0 - Dehydration Assessment and Plan 67-year-old female with Intractable nausea/vomiting/ dehydration status post EGD 11/26, Esophageal Varices grade 1, Hiatal hernia, Barium Swallow, On Protonix, Reglan to continue 10 mg TID PRN, Nystatin 5 ml swish and swallow, Follow up with Doctor Lowell after DC. nausea much improved. Continue Reglan/zofran as above. Dysphagia. GI consulted; s/p EGD on 11/26 with Portal gastropathy/ gastritis antrum-biopsy duodenum normal-biopsy white deposits r/o elvin-no biopsy or dilatation done due to presence of esophageal varices esophageal varices grade 1 Diabetes mellitus labile with hypoglycemic episode and persistent hyperglycemia Labile BG off Insulin drip, currently on Levemir 5 units Q12H and Aspart 2 units TID along with ISS Appreciate input from endocrinology Autoimmune hepatitis/ cirrhosis/ Ascites: abdominal distention is worse- continue lactulose and prednisone- hold Aldactone for now due to renal insufficiency- SP US guided paracentesis on 11/28. on lasix and spironolactone. s/p repeat US guided paracentesis Hypertension: Continue Norvasc and clonidine- BP stable. Monitor vital signs OSVALDO on CKD stage III; Cr 1.77 today. Repeat in AM. Creatinine peaked at 2 Aldactone has been resumed but consider holding if worsening renal function. Upon review of records baseline creatinine at 1.4 to 1.5. I have decreased lasix to 20mg po daily. DVT prophylaxis with SCD's Discharge Planning If creatinine stable and not worsening, d/c to home w home health care in AM Antonella Zuniga MD Dec 04, 2017 17:46
[2017-12-04] MEDS: LATANOPROST 0.005% OPHT SOLN 2.5 ML BTL EACH EYE SCH (20:01)
[2017-12-05] VITALS (19 sets, daily range): BP systolic 93–120; BP diastolic 49–71; PULSE 70–99; RESP 16–18; TEMP 98–98.5; O2SAT 97–98
[2017-12-05 04:36] LABS: AUTOMATED NEUTROPHIL # 3.1 TH/MM3 (1.8-7.7); BASOPHIL % 0.2 % (0.0-2.0); EOSINOPHIL % 0.3 % (0.0-4.0); HEMATOCRIT 27.8 % (35.0-46.0); HEMOGLOBIN 9.5 GM/DL (11.6-15.3); LYMPHOCYTE # 0.5 TH/MM3 (1.0-4.8); MEAN CELL VOLUME 97.3 FL (80.0-100.0); MEAN CORPUSCULAR HEMOGLOBIN 33.3 PG (27.0-34.0); MEAN CORPUSCULAR HGB CONC 34.3 % (32.0-36.0); MEAN PLATELET VOLUME 8.5 FL (7.0-11.0); MONO % 6.5 % (0.0-8.0); MONOCYTE # 0.2 TH/MM3 (0-0.9); PLATELET COUNT 148 TH/MM3 (150-450); RED BLOOD COUNT 2.85 MIL/MM3 (4.00-5.30); RED CELL DISTRIBUTION WIDTH 16.6 % (11.6-17.2); WHITE BLOOD COUNT 3.8 TH/MM3 (4.0-11.0)
[2017-12-05 04:50] LABS: BICARBONATE 24.6 MEQ/L (21.0-32.0); CALCIUM 8.1 MG/DL (8.5-10.1); CREATININE 1.42 MG/DL (0.50-1.00); MAGNESIUM 2.1 MG/DL (1.5-2.5)
[2017-12-05] MEDS: LEVOTHYROXINE SODIUM 88 MCG TAB PO SCH (05:22)
[2017-12-05] MEDS: METOCLOPRAMIDE HCL 10 MG/2 ML VIAL IV PUSH SCH ×3 (05:22→20:29)
[2017-12-05] MEDS: INSULIN ASPART 1,000 UNITS/10 ML VIAL SQ SCH ×6 (07:40→17:45)
--- NOTE | 2017-12-05 08:15 | HHI.PR ---
Subjective Remarks Patient seen and examined this morning. Vitals are stable and the patient is afebrile. Denies N/V. Tolerating diet. Reports feeling 80% better. Objective Vital Signs Date Time Temp Pulse Resp B/P (MAP) Pulse Ox O2 Delivery O2 Flow Rate FiO2 12/05/17 07:43 98.0 71 16 120/66 (84) 97 12/05/17 07:43 97 Room Air 12/05/17 07:36 70 12/05/17 06:08 76 12/05/17 05:00 73 12/05/17 04:00 74 12/05/17 04:00 73 12/05/17 03:35 98.5 75 16 103/60 (74) 97 12/05/17 03:00 74 12/05/17 02:00 74 12/05/17 01:00 72 12/05/17 00:01 98.4 79 16 93/49 (64) 97 12/05/17 00:00 74 12/05/17 00:00 77 12/04/17 23:00 74 12/04/17 22:00 96 12/04/17 21:00 84 12/04/17 20:00 82 12/04/17 20:00 83 12/04/17 20:00 98.0 83 16 99/57 (71) 98 12/04/17 20:00 98 Room Air 12/04/17 19:00 76 12/04/17 15:12 98.2 67 17 101/51 (68) 99 12/04/17 15:00 70 12/04/17 12:24 98.0 81 18 150/86 (107) 97 12/04/17 11:49 98.7 84 16 113/70 (84) 98 12/04/17 11:34 98.8 86 16 126/80 (95) 98 12/04/17 09:56 98.6 90 16 120/79 (93) 98 I/O 12/04/17 12/04/17 12/04/17 12/05/17 12/05/17 12/05/17 07:00 15:00 23:00 07:00 15:00 23:00 Intake Total 240 ml 180 ml 240 ml Output Total 300 ml 350 ml 700 ml Balance -60 ml -170 ml -460 ml Intake Oral 240 ml 120 ml 240 ml IV Total 60 ml Output Urine Total 300 ml 350 ml 700 ml # Bowel Movements 1 2 Result Diagram: 12/05/17 0406 12/05/17 0406 Imaging Last Impressions Cyst Biopsy Asp-Paracentesis US 12/04/17 0000 Signed Impressions: Service Date/Time: Monday, December 04, 2017 10:00 - CONCLUSION: Uncomplicated ultrasound guided paracentesis. Lex Higuera MD Barium Swallow X-Ray 11/25/17 0000 Signed Impressions: Service Date/Time: Saturday, November 25, 2017 12:51 - CONCLUSION: No obstructing mass. Marked presbyesophagus. Marco Chaudhari MD FACR Chest X-Ray 11/24/17 0947 Signed Impressions: Service Date/Time: Friday, November 24, 2017 09:55 - CONCLUSION: No acute disease. Dejan Trejo MD Procedures EGD Objective Remarks GENERAL: Well-appearing, no acute distress SKIN: Warm and dry. HEAD: Normocephalic. EYES: No scleral icterus. No injection or drainage. NECK: Supple, trachea midline. No JVD or lymphadenopathy. CARDIOVASCULAR: Regular rate and rhythm without murmurs, gallops, or rubs. RESPIRATORY: Breath sounds equal bilaterally. No accessory muscle use. GASTROINTESTINAL: Abdomen soft, non-tender, nondistended. MUSCULOSKELETAL: No cyanosis, or edema. A/P Problem List: (1) HTN (hypertension) ICD Code: I10 - Essential (primary) hypertension (2) Type 2 diabetes mellitus ICD Code: E11.9 - Type 2 diabetes mellitus without complications Status: Chronic (3) OSVALDO (acute kidney injury) ICD Code: N17.9 - Acute kidney failure, unspecified Status: Acute (4) Nausea & vomiting ICD Code: R11.2 - Nausea with vomiting, unspecified (5) Cirrhosis of liver with ascites ICD Code: K74.60 - Cirrhosis of liver with ascites Status: Chronic Permanent Comment: Last Edited By: Brandt Coker on Oct 06, 2017 21:42 Assessment and Plan This is a 67-year-old female patient who presented with dysphagia and intractable nausea and vomiting. Intractable nausea/vomiting/dehydration--> resolved Status post EGD on 11/26, notable for esophageal varices grade 1 and hiatal hernia. No dilation due to presence of esophageal varices. Biopsy showed gastritis and duodenitis. Negative for H. pylori. Barium swallow showed no obstructing mass. Marked presbyesophagus. Patient is currently on Protonix, Reglan 10 mg 3 times daily, nystatin. Will follow with Dr.Zulfiquar hanna upon discharge Diabetes Levemir 5 units twice daily and aspart 2 units TID, supplemental sliding scale Autoimmune hepatitis Status post ultrasound-guided paracentesis on 11/28 Continue Lasix. Spironolactone on hold due to renal insufficiency Hypertension BP stable on Norvasc and clonidine AK I on CKD stage 3 Baseline creatinine 1.4 Discharge Planning D/C to ASSISTED today. Amber Foster MD Dec 05, 2017 08:15
[2017-12-05] MEDS: INSULIN ASPART SUPPLEMENTAL SCALE SQ SCH ×4 (08:22→20:42)
[2017-12-05] MEDS: predniSONE 10 MG TAB PO SCH (08:24)
[2017-12-05] MEDS: cloNIDine HCL 0.1 MG TAB PO SCH ×2 (08:24→20:29)
[2017-12-05] MEDS: LACTULOSE SYRUP 20 GM/30 ML CUP PO SCH ×4 (08:24→20:29)
[2017-12-05] MEDS: SODIUM CHLORIDE FLUSH BID IV FLUSH SCH ×2 (08:25→20:28)
[2017-12-05] MEDS: PANTOPRAZOLE SOD 40 MG DELAYED RELEASE TAB PO SCH (08:25)
[2017-12-05] MEDS: amLODIPine BESYLATE 5 MG TAB PO SCH (08:25)
[2017-12-05] MEDS: SERTRALINE HCL 50 MG TAB PO SCH (08:25)
[2017-12-05] MEDS: FUROSEMIDE 20 MG TAB PO SCH (08:25)
[2017-12-05] MEDS: NYSTATIN SUSP 500,000 U/5 ML CUP SWISH-SWAL SCH ×4 (08:25→20:29)
[2017-12-05] MEDS: INSULIN DETEMIR 100 UNITS/ML VIAL SQ SCH ×2 (08:26→20:30)
[2017-12-05] MEDS: MERCAPTOPURINE 50 MG TAB PO SCH (08:29)
[2017-12-05] MEDS: SPIRONOLACTONE 25 MG TAB PO SCH (08:29)
[2017-12-05] MEDS ORDERED: WALKER WHEELS/F1 MIS (14:36)
--- NOTE | 2017-12-05 14:36 | HHI.DS ---
Discharge Summary Admission Date Nov 28, 2017 at 23:38 Discharge Date: Dec 05, 2017 Admitting Diagnosis Hypoglycemia/dehydration CBC/BMP: 12/05/17 0406 12/05/17 0406 Significant Findings Laboratory Tests Test 12/03/17 05:25 12/03/17 10:11 12/03/17 16:05 12/04/17 04:55 Red Blood Count 3.28 MIL/MM3 (4.00-5.30) Hemoglobin 10.7 GM/DL (11.6-15.3) Hematocrit 32.0 % (35.0-46.0) Monocytes (%) (Auto) 8.4 % (0.0-8.0) Blood Urea Nitrogen 47 MG/DL (7-18) 50 MG/DL (7-18) Creatinine 1.47 MG/DL (0.50-1.00) 1.77 MG/DL (0.50-1.00) Random Glucose 153 MG/DL (74-106) 182 MG/DL (74-106) Calcium Level 8.1 MG/DL (8.5-10.1) 8.4 MG/DL (8.5-10.1) Sodium Level 133 MEQ/L (136-145) 135 MEQ/L (136-145) Potassium Level 5.6 MEQ/L (3.5-5.1) Estimat Glomerular Filtration Rate 36 ML/MIN (>89) 29 ML/MIN (>89) Activated Partial Thromboplast Time 24.0 SEC (24.3-30.1) Albumin 2.2 GM/DL (3.4-5.0) Alkaline Phosphatase 585 U/L (45-117) Aspartate Amino Transf (AST/SGOT) 114 U/L (15-37) Alanine Aminotransferase (ALT/SGPT) 74 U/L (10-53) Total Bilirubin 1.2 MG/DL (0.2-1.0) Test 12/05/17 04:06 White Blood Count 3.8 TH/MM3 (4.0-11.0) Red Blood Count 2.85 MIL/MM3 (4.00-5.30) Hemoglobin 9.5 GM/DL (11.6-15.3) Hematocrit 27.8 % (35.0-46.0) Platelet Count 148 TH/MM3 (150-450) Neutrophils (%) (Auto) 81.0 % (16.0-70.0) Lymphocytes # (Auto) 0.5 TH/MM3 (1.0-4.8) Blood Urea Nitrogen 45 MG/DL (7-18) Creatinine 1.42 MG/DL (0.50-1.00) Random Glucose 229 MG/DL (74-106) Calcium Level 8.1 MG/DL (8.5-10.1) Estimat Glomerular Filtration Rate 37 ML/MIN (>89) Imaging Last Impressions Cyst Biopsy Asp-Paracentesis US 12/04/17 0000 Signed Impressions: Service Date/Time: Monday, December 04, 2017 10:00 - CONCLUSION: Uncomplicated ultrasound guided paracentesis. Lex Higuera MD Barium Swallow X-Ray 11/25/17 0000 Signed Impressions: Service Date/Time: Saturday, November 25, 2017 12:51 - CONCLUSION: No obstructing mass. Marked presbyesophagus. Marco Chaudhari MD FACR Chest X-Ray 11/24/17 0947 Signed Impressions: Service Date/Time: Friday, November 24, 2017 09:55 - CONCLUSION: No acute disease. Dejan Trejo MD Hospital Course This is a 67-year-old female patient dilation cannot be done. She was based on Protonix, Reglan and nystatin. Biopsy did show some gastritis and duodenitis. She was negative for H. pylori. The patient also had ultrasound-guided paracentesis performed. By December 05 patient had reached maximum benefit from inpatient hospitalization. She was cleared for discharge with GI follow-up. She is to be discharged home to her LONG TERM with home health and wheeled walker. Pt Condition on Discharge: Stable Discharge Disposition: LONG TERM with [facility] Discharge Instructions DIET: Follow Instructions for: Diabetic Diet Activities you can perform: Regular-No Restrictions Follow up Referrals: Gastroenterology - 1 Week with Cuong Etienne MD PCP Follow-up - 2-3 Days with Luis Clark Do New Medications: Bethanechol (Bethanechol) 10 Mg Tab 10 MG PO TID for Urinary Symptom Managemen for 14 Days, TAB 0 Refills [Nystatin Liq] () 5 ML SUSP 5 ML SWISH-SWAL QID for 14 Days, #280 ML Continued Medications: Amlodipine (Norvasc) 5 Mg Tab 2.5 MG PO DAILY for HTN, #30 TAB 0 Refills Ascorbic Acid (C-500) 500 Mg Tab.chew 500 MG PO DAILY for Nutritional Supplement Cholecalciferol (Vitamin D3) 1,000 Unit Tab 1000 UNITS PO DAILY for Nutritional Supplement, #1 BOTTLE 0 Refills Clonidine (Clonidine) 0.1 Mg Tab 0.1 MG PO BID for Blood Pressure Management, #60 TAB 0 Refills Insulin Aspart Inj (Novolog Inj) 1,000 Unit/10 Ml Vial 0 SQ DIRECTED for Blood Sugar Management, #10 ML 0 Refills Sliding Scale as directed. Insulin Detemir Inj (Levemir Inj) 1,000 unit/ 10 ML Vial 10 UNITS SQ HS for DM, #1 INJECTION 0 Refills Do not mix with any other Insulin. GIVE ONE DOSE AT BED TIME, AND TITRATE NEEDED. Latanoprost Opth Drops (Xalatan Opth Drops) 0.005% Drops 1 DROP EACH EYE HS for Glaucoma, #2.5 ML 0 Refills Levothyroxine (Levothyroxine) 88 Mcg Tab 88 MCG PO DAILY for Thyroid, #30 TAB 0 Refills Mercaptopurine (Mercaptopurine) 50 Mg Tab 50 MG PO DAILY for Chemotherapy Management, TAB 0 Refills Ondansetron Odt (Zofran Odt) 8 Mg Tab 8 MG SL Q8H PRN for NAUSEA OR VOMITING, #10 TAB 0 Refills Oxycodone (Oxycodone) 5 Mg Tab 5 MG PO Q4H PRN for PAIN, #14 TAB 0 Refills DO NOT USE THIS MEDICINE IF YOU WILL DRIVE A CAR OR USE A MACHINE, ONLY USE IT WHEN RESTING AT HOME. Pantoprazole (Pantoprazole) 40 Mg Tab 40 MG PO DAILY for GERD, #30 TAB 0 Refills Prednisone (Prednisone) 10 Mg Tab 10 MG PO DAILY for inflammation for 30 Days, #30 TAB Sertraline (Zoloft) 50 Mg Tab 50 MG PO DAILY, #90 TAB 1 Refill Spironolactone (Spironolactone) 25 Mg Tab 25 MG PO DAILY for ascites, #30 TAB 0 Refills [Lactulose Liq] () 30 ML SYRP 30 ML PO QID for ammonia, #3600 ML Discontinued Medications: Nitrofurantoin Monohydrate Macrocrystals (Macrobid) 100 Mg Cap 100 MG PO BID for Infection for 5 Days, #10 CAP 0 Refills Foster,Amber Danae MD Dec 05, 2017 14:36
[2017-12-05] MEDS: ONDANSETRON HCL 4 MG/2 ML VIAL IV PUSH PRN (17:53)
[2017-12-05] MEDS: LATANOPROST 0.005% OPHT SOLN 2.5 ML BTL EACH EYE SCH (20:29)
[2017-12-06] VITALS (17 sets, daily range): BP systolic 105–124; BP diastolic 65–70; PULSE 73–95; RESP 18; TEMP 98.1–98.5; O2SAT 96–99
[2017-12-06] MEDS: LEVOTHYROXINE SODIUM 88 MCG TAB PO SCH (05:23)
[2017-12-06] MEDS: METOCLOPRAMIDE HCL 10 MG/2 ML VIAL IV PUSH SCH ×3 (05:24→20:33)
--- NOTE | 2017-12-06 07:19 | HHI.PR ---
Subjective Remarks Patient seen and examined this morning. Vitals are stable and the patient is afebrile. Denies N/V. Tolerating diet. Sleep comfortably this morning. Objective Vital Signs Date Time Temp Pulse Resp B/P (MAP) Pulse Ox O2 Delivery O2 Flow Rate FiO2 12/06/17 07:11 97 Room Air 12/06/17 06:00 78 12/06/17 05:00 80 12/06/17 04:00 98.1 87 18 124/69 (87) 96 12/06/17 04:00 87 12/06/17 03:00 90 12/06/17 02:00 93 12/06/17 01:00 95 12/06/17 00:00 94 12/06/17 00:00 98.3 94 18 118/67 (84) 96 12/05/17 23:00 95 12/05/17 22:00 99 12/05/17 21:00 96 12/05/17 20:00 98.0 87 18 106/62 (77) 97 12/05/17 20:00 Room Air 12/05/17 20:00 87 12/05/17 20:00 Room Air 12/05/17 15:30 98.3 83 17 102/56 (71) 97 12/05/17 15:00 79 12/05/17 11:52 98.2 92 17 114/71 (85) 98 12/05/17 11:00 85 12/05/17 07:43 98.0 71 16 120/66 (84) 97 12/05/17 07:43 97 Room Air 12/05/17 07:36 70 I/O 12/05/17 12/05/17 12/05/17 12/06/17 12/06/17 12/06/17 07:00 15:00 23:00 07:00 15:00 23:00 Intake Total 240 ml 440 ml 240 ml Output Total 700 ml 400 ml 500 ml Balance -460 ml 40 ml -260 ml Intake Oral 240 ml 440 ml 240 ml Output Urine Total 700 ml 400 ml 500 ml # Bowel Movements 2 1 Result Diagram: 12/05/17 0406 12/05/17 0406 Imaging Last Impressions Cyst Biopsy Asp-Paracentesis US 12/04/17 0000 Signed Impressions: Service Date/Time: Monday, December 04, 2017 10:00 - CONCLUSION: Uncomplicated ultrasound guided paracentesis. Lex Higuera MD Barium Swallow X-Ray 11/25/17 0000 Signed Impressions: Service Date/Time: Saturday, November 25, 2017 12:51 - CONCLUSION: No obstructing mass. Marked presbyesophagus. Marco Chaudhari MD FACR Chest X-Ray 11/24/17 0947 Signed Impressions: Service Date/Time: Friday, November 24, 2017 09:55 - CONCLUSION: No acute disease. Dejan Trejo MD Procedures EGD Objective Remarks GENERAL: Well-appearing, no acute distress SKIN: Warm and dry. HEAD: Normocephalic. EYES: No scleral icterus. No injection or drainage. NECK: Supple, trachea midline. No JVD or lymphadenopathy. CARDIOVASCULAR: Regular rate and rhythm without murmurs, gallops, or rubs. RESPIRATORY: Breath sounds equal bilaterally. No accessory muscle use. GASTROINTESTINAL: Abdomen soft, non-tender, nondistended. MUSCULOSKELETAL: No cyanosis, or edema. A/P Problem List: (1) HTN (hypertension) ICD Code: I10 - Essential (primary) hypertension (2) Type 2 diabetes mellitus ICD Code: E11.9 - Type 2 diabetes mellitus without complications Status: Chronic (3) OSVALDO (acute kidney injury) ICD Code: N17.9 - Acute kidney failure, unspecified Status: Acute (4) Nausea & vomiting ICD Code: R11.2 - Nausea with vomiting, unspecified (5) Cirrhosis of liver with ascites ICD Code: K74.60 - Cirrhosis of liver with ascites Status: Chronic Permanent Comment: Last Edited By: Brandt Coker on Oct 06, 2017 21:42 Assessment and Plan This is a 67-year-old female patient who presented with dysphagia and intractable nausea and vomiting. Intractable nausea/vomiting/dehydration--> resolved Status post EGD on 11/26, notable for esophageal varices grade 1 and hiatal hernia. No dilation due to presence of esophageal varices. Biopsy showed gastritis and duodenitis. Negative for H. pylori. Barium swallow showed no obstructing mass. Marked presbyesophagus. Patient is currently on Protonix, Reglan 10 mg 3 times daily, nystatin. Will follow with Dr.Zulfiquar hanna upon discharge Diabetes Levemir 5 units twice daily and aspart 2 units TID, supplemental sliding scale Autoimmune hepatitis Status post ultrasound-guided paracentesis on 11/28 Continue Lasix. Spironolactone on hold due to renal insufficiency Hypertension BP stable on Norvasc and clonidine AK I on CKD stage 3 Baseline creatinine 1.4 Discharge Planning Was discharged back to her [facility] on 12/05 [facility] does not accept admissions on weekends. Amber Foster MD Dec 06, 2017 07:19
[2017-12-06] MEDS: INSULIN ASPART 1,000 UNITS/10 ML VIAL SQ SCH ×6 (08:00→17:44)
[2017-12-06] MEDS: INSULIN ASPART SUPPLEMENTAL SCALE SQ SCH ×4 (08:23→20:45)
[2017-12-06] MEDS: ONDANSETRON HCL 4 MG/2 ML VIAL IV PUSH PRN (08:24)
[2017-12-06] MEDS: SODIUM CHLORIDE FLUSH BID IV FLUSH SCH ×2 (08:24→20:33)
[2017-12-06] MEDS: LACTULOSE SYRUP 20 GM/30 ML CUP PO SCH ×4 (08:25→20:32)
[2017-12-06] MEDS: SPIRONOLACTONE 25 MG TAB PO SCH (08:26)
[2017-12-06] MEDS: FUROSEMIDE 20 MG TAB PO SCH (08:26)
[2017-12-06] MEDS: SERTRALINE HCL 50 MG TAB PO SCH (08:26)
[2017-12-06] MEDS: NYSTATIN SUSP 500,000 U/5 ML CUP SWISH-SWAL SCH ×4 (08:26→20:32)
[2017-12-06] MEDS: predniSONE 10 MG TAB PO SCH (08:26)
[2017-12-06] MEDS: PANTOPRAZOLE SOD 40 MG DELAYED RELEASE TAB PO SCH (08:28)
[2017-12-06] MEDS: INSULIN DETEMIR 100 UNITS/ML VIAL SQ SCH ×2 (08:28→20:45)
[2017-12-06] MEDS: MERCAPTOPURINE 50 MG TAB PO SCH (08:32)
[2017-12-06] MEDS: amLODIPine BESYLATE 5 MG TAB PO SCH (10:08)
[2017-12-06] MEDS: cloNIDine HCL 0.1 MG TAB PO SCH ×2 (10:08→20:46)
--- NOTE | 2017-12-06 13:16 | HHI.PR ---
Subjective Remarks Ms Mooney reports she has been feeling nauseated. She has not been able to keep her food down and her intake per her report has been inconsistent. Her blood sugars have been running high in the lower 200's most of the time. She reports that she has not been drinking the Glucerna every meal neither. Today she has vomited per her report. Objective Vital Signs Date Time Temp Pulse Resp B/P (MAP) Pulse Ox O2 Delivery O2 Flow Rate FiO2 12/06/17 11:47 98.5 82 18 105/67 (80) 98 12/06/17 08:00 98.4 85 18 107/70 (82) 98 12/06/17 07:11 97 Room Air 12/06/17 07:00 83 12/06/17 06:00 78 12/06/17 05:00 80 12/06/17 04:00 98.1 87 18 124/69 (87) 96 12/06/17 04:00 87 12/06/17 03:00 90 12/06/17 02:00 93 12/06/17 01:00 95 12/06/17 00:00 94 12/06/17 00:00 98.3 94 18 118/67 (84) 96 12/05/17 23:00 95 12/05/17 22:00 99 12/05/17 21:00 96 12/05/17 20:00 98.0 87 18 106/62 (77) 97 12/05/17 20:00 Room Air 12/05/17 20:00 87 12/05/17 20:00 Room Air 12/05/17 15:30 98.3 83 17 102/56 (71) 97 12/05/17 15:00 79 I/O 12/05/17 12/05/17 12/05/17 12/06/17 12/06/17 12/06/17 07:00 15:00 23:00 07:00 15:00 23:00 Intake Total 240 ml 440 ml 240 ml Output Total 700 ml 400 ml 500 ml Balance -460 ml 40 ml -260 ml Intake Oral 240 ml 440 ml 240 ml Output Urine Total 700 ml 400 ml 500 ml # Bowel Movements 2 1 Result Diagram: 12/05/17 0406 12/05/17 0406 Procedures EGD Other Results Reviewed other notes as well as blood glucose levels of the last 2 days. Assessment and Plan Problem List: (1) Diabetes mellitus ICD Codes: E11.9 - Type 2 diabetes mellitus without complications Status: Acute (2) Hypothyroidism ICD Codes: E03.9 - Hypothyroidism, unspecified Status: Chronic (3) Renal insufficiency ICD Codes: N28.9 - Disorder of kidney and ureter, unspecified (4) liver cirhhsois (5) Hypertension ICD Codes: I10 - Essential (primary) hypertension Status: Chronic (6) Nausea & vomiting ICD Codes: R11.2 - Nausea with vomiting, unspecified Assessment and Plan Diabetes Uncontrolled Cirrhosis Nausea and vomiting I have counseled the patient again on the need to match her intake with her insulin dose. At this point I will take recommend we increase her dose of Levemir to 7 units BID and keep her mealtime insulin the same. The patient is agreeable to at least drink the Glucerna at each meal so that we can be consistent wtih her mealtime insulin coverage. I have taken the liberty to write the above orders. Thank you for the opportunity to participate in the medical management of this nice lady I will follow with you. Eid Tony MD Dec 06, 2017 13:16
[2017-12-06] MEDS: LATANOPROST 0.005% OPHT SOLN 2.5 ML BTL EACH EYE SCH (20:34)
[2017-12-07] VITALS (15 sets, daily range): BP systolic 93–118; BP diastolic 56–68; PULSE 70–106; RESP 16–18; TEMP 97.9–98.4; O2SAT 96–100
[2017-12-07] MEDS: METOCLOPRAMIDE HCL 10 MG/2 ML VIAL IV PUSH SCH ×3 (05:12→21:07)
[2017-12-07] MEDS: LEVOTHYROXINE SODIUM 88 MCG TAB PO SCH (05:12)
[2017-12-07] MEDS: INSULIN ASPART SUPPLEMENTAL SCALE SQ SCH ×4 (08:00→21:00)
[2017-12-07] MEDS: INSULIN ASPART 1,000 UNITS/10 ML VIAL SQ SCH ×6 (08:00→17:00)
[2017-12-07] MEDS: INSULIN DETEMIR 100 UNITS/ML VIAL SQ SCH ×2 (09:00→21:04)
[2017-12-07] MEDS: SODIUM CHLORIDE FLUSH BID IV FLUSH SCH ×2 (09:00→21:20)
[2017-12-07] MEDS: predniSONE 10 MG TAB PO SCH (10:13)
[2017-12-07] MEDS: FUROSEMIDE 20 MG TAB PO SCH (10:13)
[2017-12-07] MEDS: cloNIDine HCL 0.1 MG TAB PO SCH ×2 (10:13→21:00)
[2017-12-07] MEDS: PANTOPRAZOLE SOD 40 MG DELAYED RELEASE TAB PO SCH (10:13)
[2017-12-07] MEDS: amLODIPine BESYLATE 5 MG TAB PO SCH (10:13)
[2017-12-07] MEDS: NYSTATIN SUSP 500,000 U/5 ML CUP SWISH-SWAL SCH ×4 (10:14→21:06)
[2017-12-07] MEDS: SPIRONOLACTONE 25 MG TAB PO SCH (10:14)
[2017-12-07] MEDS: SERTRALINE HCL 50 MG TAB PO SCH (10:14)
[2017-12-07] MEDS: LACTULOSE SYRUP 20 GM/30 ML CUP PO SCH ×4 (10:14→21:00)
[2017-12-07] MEDS: MERCAPTOPURINE 50 MG TAB PO SCH (10:22)
--- NOTE | 2017-12-07 15:03 | HHI.PR ---
Subjective Remarks Patient sleeping on her recliner. Asked to be help back to her bed. Denies any pain, chest pain, nausea, vomiting or shortness of breath. Objective Vitals Vital Signs Date Time Temp Pulse Resp B/P (MAP) Pulse Ox O2 Delivery O2 Flow Rate FiO2 12/07/17 11:15 85 12/07/17 11:15 97.9 101 18 112/64 (80) 100 12/07/17 07:36 85 12/07/17 07:36 Room Air 12/07/17 07:36 98.4 85 18 102/56 (71) 96 12/07/17 06:00 70 12/07/17 05:00 71 12/07/17 04:00 98.0 75 18 118/67 (84) 97 12/07/17 04:00 75 12/07/17 03:00 73 12/07/17 02:00 76 12/07/17 01:00 81 12/07/17 00:00 98.2 75 18 106/68 (81) 97 12/07/17 00:00 75 12/06/17 23:00 80 12/06/17 22:00 77 12/06/17 21:00 75 12/06/17 20:00 73 12/06/17 20:00 98.1 73 18 106/65 (79) 96 12/06/17 20:00 Room Air 12/06/17 15:12 98.3 83 18 111/66 (81) 99 I/O 12/06/17 12/06/17 12/06/17 12/07/17 12/07/17 12/07/17 07:00 15:00 23:00 07:00 15:00 23:00 Intake Total 240 ml 240 ml 240 ml Output Total 500 ml 400 ml 500 ml Balance -260 ml -160 ml -260 ml Intake Oral 240 ml 240 ml 240 ml Output Urine Total 500 ml 400 ml 500 ml # Bowel Movements 1 1 Result Diagram: 12/05/17 0406 12/05/17 0406 Imaging Last Impressions Cyst Biopsy Asp-Paracentesis US 12/04/17 0000 Signed Impressions: Service Date/Time: Monday, December 04, 2017 10:00 - CONCLUSION: Uncomplicated ultrasound guided paracentesis. Lex Higuera MD Barium Swallow X-Ray 11/25/17 0000 Signed Impressions: Service Date/Time: Saturday, November 25, 2017 12:51 - CONCLUSION: No obstructing mass. Marked presbyesophagus. Marco Chaudhari MD FACR Chest X-Ray 11/24/17 0947 Signed Impressions: Service Date/Time: Friday, November 24, 2017 09:55 - CONCLUSION: No acute disease. Dejan Trejo MD Objective Remarks GENERAL: NAD CARDIOVASCULAR: Regular rate and rhythm without murmurs RESPIRATORY: Breath sounds equal bilaterally. No accessory muscle use. GASTROINTESTINAL: Abdomen soft, non-tender, nondistended. MUSCULOSKELETAL: No edema. Procedures EGD A/P Problem List: (1) Hypoglycemia ICD Code: E16.2 - Hypoglycemia, unspecified (2) Dehydration ICD Code: E86.0 - Dehydration Assessment and Plan This is a 67-year-old female patient who presented with dysphagia and intractable nausea and vomiting. Intractable nausea/vomiting/dehydration--> resolved Status post EGD on 11/26, notable for esophageal varices grade 1 and hiatal hernia. No dilation due to presence of esophageal varices. Biopsy showed gastritis and duodenitis. Negative for H. pylori. Barium swallow showed no obstructing mass. Marked presbyesophagus. Patient is currently on Protonix, Reglan 10 mg 3 times daily, nystatin. Will follow with upon discharge Diabetes was on Levemir 5 units twice daily and aspart 2 units TID, supplemental sliding scale endocrinology has increased dose of levemir to 7units BID and keep same supplemental SS Autoimmune hepatitis Status post ultrasound-guided paracentesis on 11/28 Continue Lasix. Spironolactone has been resumed. Hypertension BP stable on Norvasc and clonidine AK I on CKD stage 3 Baseline creatinine 1.4 Discharge Planning Per physical therapy, their recs are rehab. CM assisting w d/c planning Antonella Zuniga MD Dec 07, 2017 15:03
[2017-12-07] MEDS ORDERED: SPIR25 PO (15:14)
[2017-12-07] MEDS ORDERED: FURO20TA PO (15:14)
[2017-12-07] MEDS ORDERED: NOVOLOGP2 SQ (15:14)
[2017-12-07] MEDS ORDERED: LEVEMIR SQ (15:16)
[2017-12-07] MEDS: ONDANSETRON HCL 4 MG/2 ML VIAL IV PUSH PRN (21:07)
[2017-12-07] MEDS: LATANOPROST 0.005% OPHT SOLN 2.5 ML BTL EACH EYE SCH (22:26)
[2017-12-08] VITALS (9 sets, daily range): BP systolic 103–114; BP diastolic 62–72; PULSE 74–94; RESP 16–18; TEMP 98.1–98.8; O2SAT 98
[2017-12-08] MEDS: LEVOTHYROXINE SODIUM 88 MCG TAB PO SCH (05:40)
[2017-12-08] MEDS: METOCLOPRAMIDE HCL 10 MG/2 ML VIAL IV PUSH SCH ×2 (05:40→13:14)
[2017-12-08] MEDS: ONDANSETRON HCL 4 MG/2 ML VIAL IV PUSH PRN (05:45)
[2017-12-08] MEDS: INSULIN ASPART SUPPLEMENTAL SCALE SQ SCH ×2 (08:00→12:00)
[2017-12-08] MEDS: INSULIN ASPART 1,000 UNITS/10 ML VIAL SQ SCH ×4 (08:00→12:00)
[2017-12-08] MEDS: SERTRALINE HCL 50 MG TAB PO SCH (08:43)
[2017-12-08] MEDS: SPIRONOLACTONE 25 MG TAB PO SCH (08:43)
[2017-12-08] MEDS: LACTULOSE SYRUP 20 GM/30 ML CUP PO SCH ×2 (08:43→13:14)
[2017-12-08] MEDS: predniSONE 10 MG TAB PO SCH (08:43)
[2017-12-08] MEDS: cloNIDine HCL 0.1 MG TAB PO SCH (08:43)
[2017-12-08] MEDS: PANTOPRAZOLE SOD 40 MG DELAYED RELEASE TAB PO SCH (08:43)
[2017-12-08] MEDS: NYSTATIN SUSP 500,000 U/5 ML CUP SWISH-SWAL SCH ×2 (08:43→13:14)
[2017-12-08] MEDS: amLODIPine BESYLATE 5 MG TAB PO SCH (08:43)
[2017-12-08] MEDS: SODIUM CHLORIDE FLUSH BID IV FLUSH SCH (08:44)
[2017-12-08] MEDS: FUROSEMIDE 20 MG TAB PO SCH (08:44)
[2017-12-08] MEDS: MERCAPTOPURINE 50 MG TAB PO SCH (08:52)
[2017-12-08] MEDS: INSULIN DETEMIR 100 UNITS/ML VIAL SQ SCH (08:57)
--- NOTE | 2017-12-08 11:46 | HHI.PR ---
Subjective Remarks Pt doing well. no complaints. no pain, comfortable discussed w RN, no concerns Objective Vitals Vital Signs Date Time Temp Pulse Resp B/P (MAP) Pulse Ox O2 Delivery O2 Flow Rate FiO2 12/08/17 11:22 74 12/08/17 11:22 98.1 74 16 110/72 (85) 98 12/08/17 07:48 98.2 83 16 105/65 (78) 98 12/08/17 07:48 80 12/08/17 07:48 98 Room Air 12/08/17 06:00 84 12/08/17 05:00 84 12/08/17 04:00 98.7 88 18 103/62 (76) 98 12/08/17 04:00 87 12/08/17 03:00 86 12/08/17 02:00 86 12/08/17 01:00 94 12/08/17 00:00 91 12/08/17 00:00 98.8 92 16 114/63 (80) 98 12/07/17 23:00 106 12/07/17 22:00 86 12/07/17 21:00 84 12/07/17 20:00 Nasal Cannula 2.00 12/07/17 20:00 98.3 87 16 93/60 (71) 99 12/07/17 20:00 92 12/07/17 19:00 98 12/07/17 15:14 92 12/07/17 15:14 97.9 92 18 98/58 (71) 98 I/O 12/07/17 12/07/17 12/07/17 12/08/17 12/08/17 12/08/17 07:00 15:00 23:00 07:00 15:00 23:00 Intake Total 240 ml 240 ml 120 ml Output Total 500 ml 650 ml 125 ml Balance -260 ml -410 ml -5 ml Intake Oral 240 ml 240 ml 120 ml Output Urine Total 500 ml 650 ml 125 ml # Bowel Movements 1 1 Result Diagram: 12/05/17 0406 12/05/17 0406 Imaging Last Impressions Cyst Biopsy Asp-Paracentesis US 12/04/17 0000 Signed Impressions: Service Date/Time: Monday, December 04, 2017 10:00 - CONCLUSION: Uncomplicated ultrasound guided paracentesis. Lex Higuera MD Barium Swallow X-Ray 11/25/17 0000 Signed Impressions: Service Date/Time: Saturday, November 25, 2017 12:51 - CONCLUSION: No obstructing mass. Marked presbyesophagus. Marco Chaudhari MD FACR Chest X-Ray 11/24/17 0947 Signed Impressions: Service Date/Time: Friday, November 24, 2017 09:55 - CONCLUSION: No acute disease. Dejan Trejo MD Objective Remarks GENERAL: NAD CARDIOVASCULAR: Regular rate and rhythm without murmurs RESPIRATORY: Breath sounds equal bilaterally. No accessory muscle use. GASTROINTESTINAL: Abdomen soft, non-tender, nondistended. MUSCULOSKELETAL: No edema. Procedures EGD A/P Problem List: (1) Hypoglycemia ICD Code: E16.2 - Hypoglycemia, unspecified (2) Dehydration ICD Code: E86.0 - Dehydration Assessment and Plan This is a 67-year-old female patient who presented with dysphagia and intractable nausea and vomiting. Intractable nausea/vomiting/dehydration--> resolved Status post EGD on 11/26, notable for esophageal varices grade 1 and hiatal hernia. No dilation due to presence of esophageal varices. Biopsy showed gastritis and duodenitis. Negative for H. pylori. Barium swallow showed no obstructing mass. Marked presbyesophagus. Patient is currently on Protonix, Reglan 10 mg 3 times daily, nystatin. Will follow with upon discharge Diabetes was on Levemir 5 units twice daily and aspart 2 units TID, supplemental sliding scale endocrinology has increased dose of levemir to 7units BID and keep same supplemental SS Autoimmune hepatitis Status post ultrasound-guided paracentesis on 11/28 Continue Lasix. Spironolactone has been resumed. Hypertension BP stable on Norvasc and clonidine AK I on CKD stage 3 Baseline creatinine 1.4 Discharge Planning Per physical therapy, their recs are rehab. CM assisting w d/c planning. Anticipate d/c later today Antonella Zuniga MD December 08, 2017 11:46
== END 2017-12-08 15:27 | DRG 638 ==
LOC: NEPE 09:32 → NEDA 12:29 → NEPGCP 19:35 → OBSVTOIN 11-28 23:38 → HCVI 11-29 01:14 → HCIS 12-01 12:43
PROVIDERS: ADMIT Hospitalist; ATTEND Hospitalist
PROC: 0DB98ZX Excision of Duodenum, Via Natural or Artificial Opening Endoscopic, Diagnostic (ICD-10-PCS; 2017-11-26)
PROC: 0DB78ZX Excision of Stomach, Pylorus, Via Natural or Artificial Opening Endoscopic, Diagnostic (ICD-10-PCS; 2017-11-26)
PROC: 0W9G3ZZ Drainage of Peritoneal Cavity, Percutaneous Approach (ICD-10-PCS; principal; 2017-11-28)
PROC: 0W9G3ZZ Drainage of Peritoneal Cavity, Percutaneous Approach (ICD-10-PCS; 2017-12-04)
DX: E11.65 Type 2 diabetes mellitus with hyperglycemia (principal); N17.9 Acute kidney failure, unspecified; R18.8 Other ascites; I85.00 Esophageal varices without bleeding; E11.22 Type 2 diabetes mellitus with diabetic chronic kidney disease; E87.5 Hyperkalemia; N18.3 Chronic kidney disease, stage 3 (moderate); E11.649 Type 2 diabetes mellitus with hypoglycemia without coma; E11.43 Type 2 diabetes mellitus with diabetic autonomic (poly)neuropathy; K31.84 Gastroparesis; K74.60 Unspecified cirrhosis of liver; K75.4 Autoimmune hepatitis; K21.9 Gastro-esophageal reflux disease without esophagitis; E03.9 Hypothyroidism, unspecified; E86.0 Dehydration; K29.70 Gastritis, unspecified, without bleeding; I12.9 Hypertensive chronic kidney disease with stage 1 through stage 4 chronic kidney disease, or unspecified chronic kidney disease; K29.80 Duodenitis without bleeding; K44.9 Diaphragmatic hernia without obstruction or gangrene; K22.8 Other specified diseases of esophagus; E78.5 Hyperlipidemia, unspecified; R13.10 Dysphagia, unspecified; H91.92 Unspecified hearing loss, left ear; M19.90 Unspecified osteoarthritis, unspecified site; F32.9 Major depressive disorder, single episode, unspecified; F41.9 Anxiety disorder, unspecified; Z79.4 Long term (current) use of insulin; Z88.0 Allergy status to penicillin; Z88.1 Allergy status to other antibiotic agents; Z88.2 Allergy status to sulfonamides; Z88.5 Allergy status to narcotic agent
CPT/HCPCS: 49083; 71045; 74230; 76937; 80048; 80053; 81001; 82010; 82550; 82947; 82948; 83735; 84100; 84484; 85025; 85610; 85730; 88305; 88312; 93005; 96372; 96374; 96375; 96376; C1729; G0378; G8987-GP; G8988-GP; J1815; J1817; J2405; J2765; J7030; J7040; J7120; J7512; P9047

== ENCOUNTER 2017-12-24 07:36 | Day surgery (SDC) | payer OTHER ==
[~2017-12-24 07:36] MED LIST changes: +BETH10TA2 PO; +FURO20TA PO; -MACR100C2 PO; +Nystatin Liq SWISH-SWAL; +SPIR25 PO; +WALKER WHEELS/F1 MIS
[2017-12-24 07:55] VITALS: BP 132/80; PULSE 86; RESP 16; TEMP 98.8; O2SAT 97
[2017-12-24 09:05] VITALS: BP 135/76; PULSE 76; RESP 16; TEMP 98.3; O2SAT 98
[2017-12-24] MEDS ORDERED: ALBUMIN HUMAN 25% 12.5GM-W/25GM FOR 37.5GM IV ONE (09:15)
[2017-12-24] MEDS ORDERED: ALBUMIN HUMAN 25% 25GM-W/12.5GM FOR 37.5GM IV ONE (09:15)
[2017-12-24] MEDS ORDERED: LIDOCAINE HCL 1% 20 ML VIAL ONE (09:18)
[2017-12-24 09:20] VITALS: BP 114/71; PULSE 74; RESP 18; O2SAT 99
--- NOTE | 2017-12-24 10:32 | RADRPT ---
EXAM DATE/TIME: 12/24/2017 07:59 [facility] COMPARISON: EXTERNAL COMPARISON: US GUIDED ABD PARACENTESIS, December 04, 2017, 10:00. Edmar Casillas, MR ABDOMEN W/ & W/O, Jul 16 2015, US ABDOMEN LOWER LIMITED, July 12, 2015 INDICATIONS : Ascites. MEDICAL HISTORY : Hypothyroidism. Hypercholesterolemia. Cirrhosis. HTN. GERD. Diabetes. Hepatitis. SURGICAL HISTORY : Appendectomy. Hysterectomy. Liver biopsy. Paracentesis. ENCOUNTER: [facility] ACUITY: 1 week PAIN SCORE: 0/10 LOCATION: Left lower quadrant FLUID: Total volume of 5000 cc of fluid was removed. Fluid was discarded. Paracentesis was therapeutic only. Post procedure scanning reveals no hematoma or other complication. TECHNIQUE: 1. Ultrasound guidance for abdominal paracentesis. 2. Paracentesis. The risks, benefits, and alternatives to ultrasound guided paracentesis were explained to the patient in detail including the risk of bleeding and infection. Written and verbal informed consent was obt ained. With the patient on the ultrasound table, ultrasound imaging was used to select the most appropriate approach for paracentesis. Overlying skin was prepped and draped in the usual sterile fashion and wi th a local anesthetic, a dermatotomy was made with an 11 blade scalpel. A 6 Mosotho Hag-T-mrnrtuoq ca theter was introduced into the peritoneal cavity and fluid was collected. The patient tolerated the procedure well and left the ultrasound suite in stable condition. CONCLUSION: Uncomplicated ultrasound guided paracentesis. Will Chaudhari MD on December 24, 2017 at 10:29 Board Certified Radiologist. This report was verified electronically.
== END 2017-12-24 09:50 | disposition home or self-care (01) ==
LOC: HRAD 07:36 → HRIP 07:37 → HRAD 09:50
PROVIDERS: ATTEND Internal Medicine Gastroenterology
DX: R18.8 Other ascites (principal); E03.9 Hypothyroidism, unspecified; E78.00 Pure hypercholesterolemia, unspecified; K74.60 Unspecified cirrhosis of liver; I10 Essential (primary) hypertension; K21.9 Gastro-esophageal reflux disease without esophagitis; E11.9 Type 2 diabetes mellitus without complications
CPT/HCPCS: 49083; 96365; C1729; P9047

== ENCOUNTER 2018-01-20 10:21 | Day surgery (SDC) | payer OTHER ==
[2018-01-20 11:14] VITALS: BP 92/63; PULSE 102; RESP 16; TEMP 97.4; O2SAT 98
[2018-01-20] MEDS ORDERED: ALBUMIN 25% INJ 0 ML IV ONE (12:00)
[2018-01-20 12:10] VITALS: BP 85/57; PULSE 94; RESP 16; TEMP 98.3; O2SAT 97
[2018-01-20 12:30] VITALS: BP 90/55; PULSE 88; RESP 16; O2SAT 98
--- NOTE | 2018-01-20 13:24 | RADRPT ---
EXAM DATE: 01/20/2018 12:08 PM EDT AGE/SEX: 67 years / Female INDICATIONS: Ascites. CLINICAL DATA: This is the patient's sequela encounter. Patient reports that signs and symptoms have been present for 1 week and indicates a pain score of 2/10. MEDICAL/SURGICAL HISTORY: Gastroesophageal reflux disease. Renal insufficiency, chronic. Diab etes mellitus type II. Cataracts. Glaucoma. Headaches. Peripheral neuropathy. Hypertension. Anticoag ulant therapy. Colitis. Ovarian cysts. Mumps. Arthritis. Hepatitis. Cirrhosis. Hysterectomy. Append ectomy. Liver biopsy. Breast biopsy. Paracentesis. COMPARISON: [facility] [place], US GUIDED ABD PARACENTESIS, 12/24/2017. . FLUID: Total volume of 4,900 cc of clear, yellow fluid was removed. Fluid was discarded. Paracentesis was th erapeutic only. . . TECHNIQUE: Ultrasound guidance for abdominal paracentesis. Paracentesis. The risks, benefits, and alternatives to ultrasound guided paracentesis were explained to the patient in detail including the risk of bleeding and infection. Written and verbal informed consent was obt ained. With the patient on the ultrasound table, ultrasound imaging was used to select the most appropriate approach for paracentesis. Overlying skin was prepped and draped in the usual sterile fashion and wi th a local anesthetic, a dermatotomy was made with an 11 blade scalpel. A 6 [place] Aon-S-mkomtjlo ca theter was introduced into the peritoneal cavity and fluid was collected. Post procedure scanning reveals no hematoma or other complication. The patient tolerated the procedu re well and left the ultrasound suite in stable condition. FINDINGS: Successful ultrasound-guided paracentesis was performed. CONCLUSION: 1. Uncomplicated ultrasound-guided paracentesis. Electronically signed by: Lex Higuera MD 01/20/2018 1:23 PM EDT
[2018-01-21] MEDS ORDERED: LIDOCAINE HCL 1% PF 30 ML VIAL ONE (08:28)
== END 2018-01-20 12:40 | disposition home or self-care (01) ==
LOC: HRIP 10:21 → HRAD 10:21
PROVIDERS: ATTEND Internal Medicine Gastroenterology
DX: R18.8 Other ascites (principal); K74.60 Unspecified cirrhosis of liver; I12.9 Hypertensive chronic kidney disease with stage 1 through stage 4 chronic kidney disease, or unspecified chronic kidney disease; N18.9 Chronic kidney disease, unspecified; E11.22 Type 2 diabetes mellitus with diabetic chronic kidney disease
CPT/HCPCS: 49083; C1729

== ENCOUNTER 2018-01-27 07:20 | Day surgery (SDC) | payer OTHER ==
[2018-01-27 08:01] VITALS: BP 81/58; PULSE 70; RESP 16; TEMP 97.2
[2018-01-27] MEDS ORDERED: LIDOCAINE HCL 1% PF 30 ML VIAL ONE (09:04)
[2018-01-27 09:05] VITALS: BP 90/57
[2018-01-27 09:15] VITALS: BP 87/49; PULSE 69; RESP 18; TEMP 97.7; O2SAT 100
[2018-01-27 09:30] VITALS: BP 95/66; PULSE 65; RESP 20; O2SAT 95
[2018-01-27 10:15] VITALS: BP 88/56; PULSE 64; RESP 20; O2SAT 98
[2018-01-27] MEDS ORDERED: ALBUMIN 25% INJ 100 ML IV ONE (10:15)
[2018-01-27] MEDS ORDERED: ALBUMIN 25% INJ 50 ML IV ONE (10:15)
[2018-01-27 11:00] VITALS: BP 97/61; PULSE 67; RESP 20; O2SAT 98
--- NOTE | 2018-01-27 11:39 | RADRPT ---
EXAM DATE: 01/27/2018 9:08 AM EDT AGE/SEX: 67 years / Female INDICATIONS: Ascites. CLINICAL DATA: This is the patient's sequela encounter. Patient reports that signs and symptoms have been present for 1 day and indicates a pain score of 0/10. MEDICAL/SURGICAL HISTORY: . Gastroesophageal reflux disease. Renal insufficiency, chronic. Diab etes mellitus type II. Cataracts. Glaucoma. Headaches. Peripheral neuropathy. Hypertension. Anticoagu lant therapy. Colitis. Ovarian cysts. Mumps. Arthritis. Hepatitis. Cirrhosis. . Hysterectomy. Append ectomy. Liver biopsy. Breast biopsy. Paracentesis. COMPARISON: [facility] [place] GUIDED ABD PARACENTESIS, 01/20/2018. . FLUID: Total volume of 6300 cc of clear, yellow fluid was removed. Fluid was discarded. Paracentesis was the rapeutic only. . . TECHNIQUE: Ultrasound guidance for abdominal paracentesis. Paracentesis. The risks, benefits, and alternatives to ultrasound guided paracentesis were explained to the patient in detail including the risk of bleeding and infection. Written and verbal informed consent was obt ained. With the patient on the ultrasound table, ultrasound imaging was used to select the most appropriate approach for paracentesis. Overlying skin was prepped and draped in the usual sterile fashion and wi th a local anesthetic, a dermatotomy was made with an 11 blade scalpel. A 6 Iraqi Saf-T -centesis c atheter was introduced into the peritoneal cavity and fluid was collected. The patient tolerated the procedure well and left the ultrasound suite in stable condition. CONCLUSION: Uncomplicated paracentesis, Patient received albumin per protocol. Electronically signed by: Marco Chaudhari MD 01/27/2018 11:38 AM EDT
== END 2018-01-27 11:15 | disposition home or self-care (01) ==
LOC: HRAD 07:20 → HRIP 09:17 → HRAD 11:15
PROVIDERS: ATTEND Internal Medicine Gastroenterology
DX: R18.8 Other ascites (principal); K21.9 Gastro-esophageal reflux disease without esophagitis; N18.9 Chronic kidney disease, unspecified; E11.22 Type 2 diabetes mellitus with diabetic chronic kidney disease; I12.9 Hypertensive chronic kidney disease with stage 1 through stage 4 chronic kidney disease, or unspecified chronic kidney disease; G62.9 Polyneuropathy, unspecified; K74.60 Unspecified cirrhosis of liver; M19.90 Unspecified osteoarthritis, unspecified site; Z79.01 Long term (current) use of anticoagulants
CPT/HCPCS: 49083; 96365; C1729; P9047

== ENCOUNTER 2018-02-03 09:41 | Day surgery (SDC) | payer OTHER ==
[2018-02-03 10:31] VITALS: BP 118/80; PULSE 102; RESP 16; TEMP 97.8; O2SAT 100
[2018-02-03] MEDS ORDERED: LIDOCAINE HCL 1% PF 30 ML VIAL ONE (11:11)
[2018-02-03] MEDS ORDERED: ALBUMIN 25% INJ 200 ML IV ONE (12:30)
--- NOTE | 2018-02-03 13:44 | RADRPT ---
EXAM DATE: 02/03/2018 12:23 PM EDT AGE/SEX: 67 years / Female INDICATIONS: Ascites. CLINICAL DATA: This is the patient's sequela encounter. Patient reports that signs and symptoms have been present for 1 week and indicates a pain score of 1/10. MEDICAL/SURGICAL HISTORY: Gastroesophageal reflux disease. Cirrhosis. Hypertension. Neuropat hy. Glaucoma. IBD. Renal failure. Osteoarthritis. Hepatitis. RLS. Anticoagulant therapy. Ovarian cyst s. Hysterectomy. Appendectomy. Breast biopsy. Paracentesis. Liver biopsy. COMPARISON: [facility] [place], US GUIDED ABD PARACENTESIS, 01/20/2018. . FLUID: Total volume of 7,300 cc of clear, yellow fluid was removed. Fluid was discarded. Paracentesis was th erapeutic only. . . TECHNIQUE: Ultrasound guidance for abdominal paracentesis. Paracentesis. FINDINGS: The risks, benefits, and alternatives to ultrasound guided paracentesis were explained to the patient in detail including the risk of bleeding and infection. Written and verbal informed consent was obt ained. With the patient on the ultrasound table, ultrasound imaging was used to select the most appropriate approach for paracentesis. Overlying skin was prepped and draped in the usual sterile fashion and wi th a local anesthetic, a dermatotomy was made with an 11 blade scalpel. A 6 Serbian Ivq-O-xpcfylyg ca theter was introduced into the peritoneal cavity and fluid was collected. Post procedure scanning reveals no hematoma or other complication. The patient tolerated the procedu re well and left the ultrasound suite in stable condition. CONCLUSION: Ultrasound-guided abdominal paracentesis as above. Electronically signed by: Idris Dumas MD 02/03/2018 1:43 PM EDT
== END 2018-02-03 14:30 | disposition home or self-care (01) ==
LOC: HRAD 09:41
PROVIDERS: ATTEND Internal Medicine Gastroenterology
DX: R18.8 Other ascites (principal); K21.9 Gastro-esophageal reflux disease without esophagitis; K74.60 Unspecified cirrhosis of liver; G62.9 Polyneuropathy, unspecified; K75.9 Inflammatory liver disease, unspecified; G25.81 Restless legs syndrome; I10 Essential (primary) hypertension; H40.9 Unspecified glaucoma; Z79.01 Long term (current) use of anticoagulants
CPT/HCPCS: 49083; 96365; C1729; P9047